=== PATIENT | female | born 2005 | race Caucasian/White ===

== ENCOUNTER 2023-02-04 19:47 | Emergency (ER) | payer BC, MEDICAID, SELFPAY ==
[2023-02-04 19:48] VITALS: BP 120/76; PULSE 110; RESP 18; TEMP 36.2; O2SAT 99
[2023-02-04 20:28] VITALS: BMI 23.1
[2023-02-04 20:42] LABS: Mucous, Urine 0 SEEN /hpf (<or=2+)
[2023-02-04 20:44] LABS: Color, Urine Yellow (Yellow); Glucose, Dipstick Normal (Normal); Leukocyte Esterase-Dipstick 100 /ul (Negative); Nitrite-Dipstick Negative (Negative); Occult Blood-Urine 50 /ul (Negative); Protein-Dipstick 15 mg/dl (Negative); Specific Gravity, Urine 1.025 (1.002-1.030); Urine Bilirubin Dipstick Negative (Negative); Urine Clarity Sl. Cloudy (Clear); Urine Urobilinogen Normal (Normal)
[2023-02-04 20:57] LABS: Ketone-Dipstick 150 mg/dl (Negative)
[2023-02-04 21:02] LABS: Bacteria RARE /hpf (None Seen); Red Blood Cells-Urine 0-5 SEEN /hpf (0-5); Squamous Epithelial Cells - UA 0-5 SEEN /hpf (5-10); White Blood Cells 0-5 SEEN /hpf (0-5)
--- NOTE | 2023-02-04 21:38 | EDS_ITS ---
HPI HPI - Female History of Present Illness Chief Complaint: Vag Bld, Preg Informant: patient Narrative Narrative: Patient is a 17-year-old female, G1, P0 currently 11 weeks with last menstrual period on November 17. She previously seen an [employer] SUPERVISOR in [place], Dr. Jonathan Covington. She had she had appointment with him this morning. She notes he had a hard time finding the heart beat and she was worried about that. She also notes that when driving back to the [place] area (she just moved here) she had some abdominal cramping and had small amount of blood clots spotting of bright red blood. The symptoms have since resolved. She came in for further evaluation. She denies any urinary symptoms. She denies any abnormal vaginal discharge. She did not have a pelvic exam at her appointment today. She does not know her blood type. No other complaints at this time. [facility] Medical History Vaginal cyst Home Medications NK 02/04/23 [History Last Taken Unknown] Allergy/AdvReac Type Severity Reaction Status Date / Time No Known Allergies Allergy Verified 02/04/23 19:48 Surgical History History of appendectomy Social History Smoking Status: Current every day smoker tobacco type: e-cigarettes ROS ROS ED Constitutional Constitutional ED: Denies chills or fever(s) Gastrointestinal Gastrointestinal: Reports abdominal pain; Denies diarrhea, nausea or vomiting Genitourinary Genitourinary ED: Reports other Details: vaginal bleeding, +11 weeks Musculoskeletal Musculoskeletal: Denies arthralgias or myalgias Integumentary Denies rash Neurologic Neurologic: Denies headache(s) or weakness Psychiatric Psychiatric: Denies anxiety EXAM Physical Exam Const Vital Signs: 02/04/23 19:48 Temperature 97.1 F L Temperature Source Temporal Pulse Rate 110 H Respiratory Rate 18 Blood Pressure 120/76 Blood Pressure Mean 90 Pulse Ox 99 Oxygen Delivery Method Room Air Positive well nourished and well developed General Appearance ED: well developed and NAD HEENT Reports moist mucous membranes Neck supple Chest Wall inspection of chest normal Resp normal respiratory effort and clear to auscultation bilaterally Cardio regular rate and regular rhythm GI normal to inspection, nondistended, normoactive bowel sounds and soft to palpation GI Narrative: Uterus is not palpable Narrative: Deferred Back/Spine no CVA tenderness Extremity normal to inspection and full ROM Neuro oriented x3 Sensorium / Orientation: alert Psych mental status grossly normal Skin no rashes or lesions noted MDM MDM MDM Narrative Medical decision making narrative: Patient is evaluated for cramping and vaginal bleeding in early . Bedside also performed myself shows a single intrauterine gestation with heart tones of 163. There is good activity. Patient is informed of these findings. She is not having any further bleeding or cramping I do not think a pelvic exam or formal ultrasound was obtained. Urinalysis was obtained which did show 150 ketones, 100 leukocyte esterase, rare bacteria, negative nitrates and 0-5 red blood cells, white blood cells and squamous epithelial cells. Urine will be sent for culture but think this is most consistent with contamination. Patient is given referral for local [employer]. She is O+ and does not require RhoGAM. Quant is obtained for a baseline in case patient has further bleeding. Counseled on signs and symptoms of threatened miscarriage. Patient was ordered IV fluids however she states that she does not want an IV and did not want IV fluids. Counseled to drink lots of fluids at home. She verbalizes good understand this plan. She is discharged home in stable condition. Lab Data Labs: Laboratory Results - last 24 hr 02/04/23 02/04/23 02/04/23 20:27 21:30 21:30 HCG, Quant [id number] H Urine Color Yellow Urine Clarity Sl. Cloudy Urine pH 6.0 Ur Specific [place] 1.025 Urine Protein 15 H Urine Glucose (UA) Normal Urine Ketones 150 A* Urine Occult Blood 50 H Urine Nitrite Negative Urine Bilirubin Negative Urine Urobilinogen Normal Ur Leukocyte Esterase 100 H Urine RBC 0-5 SEEN Urine WBC 0-5 SEEN Ur Squamous Epith Cells 0-5 SEEN Urine Bacteria RARE Urine Mucus 0 SEEN Blood Type O POSITIVE Discharge Plan Triage Chief Complaint: Vag Bld, Preg ED Provider: Qian Murphy Dx/Rx/DC Orders Clinical Impression: Threatened miscarriage in early , Ketonuria Instructions: ED Possible Miscarriage ... Prescriptions: No Action NK Primary Care Provider: Care Physician,No Primary Referrals: Arteaga,Shaunna, DO [Med Staff - Active Staff] - 1-2 Weeks Care Physician,No Primary [Primary Care Provider] - Activity Restrictions/Additional Instructions: Your blood type is O+. You do not require RhoGAM. Please follow-up with [employer]. Your hCG quant today was 53,199. You did show signs of dehydration or urine. Please drink lots of fluids. Baby's heart rate was normal today. Disposition Disposition: Home, Self Care
== END 2023-02-04 22:58 | disposition home or self-care (01) ==
PROVIDERS: Emergency Provider Emergency Medicine; Visit Provider Emergency Medicine
DX: O20.0 Threatened abortion (principal); O99.331 Smoking (tobacco) complicating pregnancy, first trimester; O99.891 Other specified diseases and conditions complicating pregnancy; R82.4 Acetonuria; Z3A.11 11 weeks gestation of pregnancy; F17.290 Nicotine dependence, other tobacco product, uncomplicated; Z90.49 Acquired absence of other specified parts of digestive tract
CPT/HCPCS: 81001; 84702; 86900; 86901; 87086; 87088; 99282; A4216

== ENCOUNTER 2023-02-09 16:58 | Emergency (ER) | payer BC, MEDICAID, SELFPAY ==
[2023-02-09 16:58] VITALS: BP 114/68; PULSE 88; RESP 22; TEMP 35.7; O2SAT 97; BMI 22.3
--- NOTE | 2023-02-09 19:10 | EDS_ITS ---
HPI History of Present Illness Chief Complaint: Nausea/Vomiting Detail of Chief Complaint: First trimester with nausea and vomiting for the past 3 days Informant: patient Onset/Context/Timing Onset: Weeks Timing: Intermittent Quality: Nausea and vomiting with thirst and intermittent lightheadedness Location: GI Current Severity: Moderate Maximum Severity: Moderate Worsened by: Attempt to eat or drink anything Relieved by: Nothing Associated Symptoms Associated Symptoms: Dry mouth, thirst and lightheadedness Narrative Narrative: Patient is a 17-year-old G1, P0 female first trimester , 12 weeks gestation, who presents with nausea vomiting for the past 3 days. She is had nausea fine for greater than 1 week. She states she is not able to keep anyt dino down for the past 48 hours. She denies fever, chills night sweats. Denies headache, visual, ocular auditory symptoms. She denies cardiac or respiratory symptoms. She does complain of vague abdominal discomfort with vomiting. She denies diarrhea. She denies frequency, urgency hematuria or dysuria. She endorses decreased urine output. She and lesions. She states her ibm bpm architect is Dr. Martinez who practices at [facility]. Prior similar symptoms: Yes Recent Illness/Hospitalization: Yes [facility] Medical History Vaginal cyst Home Medications cephalexin 500 mg capsule 500 mg PO Q6 #28 CAPSULES 02/09/23 [Rx Last Taken Unknown] ondansetron 4 mg disintegrating tablet 4 mg PO Q8H PRN PRN Nausea #10 tabs 02/09/23 [Rx Last Taken Unknown] Allergy/AdvReac Type Severity Reaction Status Date / Time No Known Allergies Allergy Verified 02/09/23 17:01 Surgical History History of appendectomy Social History (Updated 02/09/23 @ 19:[address] Andrzej Nguyen MD) household members: significant other Smoking Status: Current every day smoker tobacco type: e-cigarettes alcohol intake: former substance use type: former substance user Date of last use: Marijuana ROS ROS ED Constitutional Constitutional ED: Denies chills, fever(s), subjective, sweats or weight loss Eyes Eyes: Denies blurry vision, change in vision or diplopia ENT ENT ED: Denies ear pain, rhinorrhea or sore throat Cardiovascular Cardiovascular: Denies chest pain, orthopnea, palpitations, paroxysmal nocturnal dyspnea or racing heartbeat Respiratory/Chest Respiratory/Chest: Denies cough, dyspnea, dyspnea on exertion, orthopnea or paroxysmal nocturnal dyspnea Gastrointestinal Gastrointestinal: Reports abdominal pain, nausea and vomiting; Denies constipation, diarrhea or melena Genitourinary Genitourinary ED: Denies dysuria, hematuria or urinary frequency Musculoskeletal Musculoskeletal: Denies arthralgias, back pain, myalgias or neck pain Integumentary Denies rash Neurologic Neurologic: Denies headache(s) or paresthesias Endocrine Endocrinology: Denies cold intolerance, heat intolerance, polydipsia or polyuria Hematologic/Lymphatic Hematologic/Lymphatic: Reports systems reviewed and no addt'l complaints, except as documented EXAM Physical Exam Const Vital Signs: 02/09/23 16:58 Temperature 96.3 F L Temperature Source Temporal Pulse Rate 88 Respiratory Rate 22 H Blood Pressure 114/68 Blood Pressure Mean 83 Pulse Ox 97 Oxygen Delivery Method Room Air Positive well nourished and well developed Constitutional Narrative: Patient is in no distress. She is slightly pale. General Appearance ED: well developed and pallor; Negative for cyanotic or diaphoretic HEENT Reports dry mucous membranes HEENT Narrative: Head is atraumatic normocephalic. Ears are normal. Nares are patent. Posterior pharynx out erythema or exudate. Uvula is midline. Mouth ED: Yes dry mucous membranes Mouth: dry mucous membranes Eyes PERRL and EOMs intact bilaterally General Eye ED: Negative for pale conjunctiva or scleral icterus Neck no lymphadenopathy, supple and no JVD Chest Wall inspection of chest normal and palpation of chest normal Resp normal respiratory effort and clear to auscultation bilaterally Cardio regular rate, regular rhythm, S1 normal heart sound, S2 normal heart sound and no murmurs GI normal to inspection, nondistended, normoactive bowel sounds, non-tender, non- distended and no masses; Negative for hepatosplenomegaly Back/Spine no CVA tenderness Cervical Spine: Negative for cervical spine tenderness Thoracic Spine / Upper Back: Negative for thoracic spinal tenderness Lumbar Spine / Lower Back: Negative for lumbar spinal tenderness Extremity normal to inspection General Extremety ED: Negative for edema or tenderness General Extremity: Negative for edema Neuro oriented x3, CN's II-XII intact bilaterally and no sensory deficits noted Sensorium / Orientation: alert Psych mental status grossly normal Skin no rashes or lesions noted, no wounds and skin turgor normal General Skin Exam: elasticity normal and pallor; Negative for jaundice MDM MDM MDM Narrative Medical decision making narrative: Clinically patient appears dehydrated. Suspect this is hyperemesis gravidarum. 1 L normal saline was ordered as well as Zofran. Since patient's spec gravity is elevated and ketones are in urine second liter was ordered with D5 half- normal to clear ketosis. Will reassess. Laboratory studies from last week were reviewed. Patient had ketonuria at that time as well. She was diagnosed with threatened miscarriage. There is no other records available. History & Record Review Additional record(s) reviewed:: Prior ED visit Lab Data Attestation: I reviewed the patient's lab results. Lab results narrative: Urine reveals severe gravity 1.030 with ketones. Macro also is remarkable for occult blood and leukoesterase and negative for nitrites. Patient does have pyuria with 10-25 WBCs. Rare bacteria. Since she is culture was sent and she was treated with a short course of cephalexin. Labs: Laboratory Results - last 24 hr 02/09/23 19:40 Urine Color Yellow Urine Clarity Cloudy Urine pH 5.0 Ur Specific [place] 1.030 Urine Protein 30 H Urine Glucose (UA) Normal Urine Ketones 150 A* Urine Occult Blood 25 H Urine Nitrite Negative Urine Bilirubin Negative Urine Urobilinogen Normal Ur Leukocyte Esterase 100 H Urine RBC 0-5 SEEN Urine WBC 10-25 SEEN Ur Squamous Epith Cells 5-10 SEEN Amorphous Sediment 1+ URATE Urine Bacteria RARE Urine Mucus 0 SEEN Treatment and Re-Evaluation :: Patient feels markedly improved after 1 L of normal saline and 1 L of D5 half- normal saline. Patient passed p.o. challenge. Discharge Plan Triage Chief Complaint: Nausea/Vomiting ED Provider: Andrzej Nguyen Dx/Rx/DC Orders Clinical Impression: Hyperemesis gravidarum, Bacteriuria with pyuria, First trimester , Acute dehydration, Ketosis Instructions: Urinary Tract Infections in Women, ED Hyperemesis Gravidarum Prescriptions: New cephalexin [cephalexin] 500 mg capsule 500 mg PO Q6 Qty: 28 0RF ondansetron [ondansetron] 4 mg tablet,disintegrating 4 mg PO Q8H PRN PRN (Reason: Nausea) Qty: 10 0RF Primary Care Provider: Care Physician,No Primary Referrals: Care Physician,No Primary [Primary Care Provider] - Doctor,Your [Non-Staff] - 3-5 Days Activity Restrictions/Additional Instructions: 1. Call your OB for follow-up in 3 to 5 days. 2. Take antibiotics till gone 3. Take Zofran as needed for nausea and vomiting Disposition Disposition: Home, Self Care
[2023-02-09] MEDS: Ondansetron 4 MG/2 ML Vial IV (19:13)
[2023-02-09] MEDS: 0.9% Normal Saline 1,000 ML 1000 ML IV (19:13)
[2023-02-09 19:49] LABS: Mucous, Urine 0 SEEN /hpf (<or=2+)
[2023-02-09] MEDS: Dext 5%-0.45% NS 1,000 ML 1000 ML IV (19:58)
[2023-02-09 20:18] LABS: Color, Urine Yellow (Yellow); Glucose, Dipstick Normal (Normal); Leukocyte Esterase-Dipstick 100 /ul (Negative); Nitrite-Dipstick Negative (Negative); Occult Blood-Urine 25 /ul (Negative); Protein-Dipstick 30 mg/dl (Negative); Urine Bilirubin Dipstick Negative (Negative); Urine Clarity Cloudy (Clear); Urine Urobilinogen Normal (Normal)
[2023-02-09 20:48] LABS: Ketone-Dipstick 150 mg/dl (Negative)
[2023-02-09 20:50] LABS: Amorphous Sediment 1+ URATE; Bacteria RARE /hpf (None Seen); Red Blood Cells-Urine 0-5 SEEN /hpf (0-5); Squamous Epithelial Cells - UA 5-10 SEEN /hpf (5-10); White Blood Cells 10-25 SEEN /hpf (0-5)
[2023-02-09 21:37] VITALS: BP 115/69; PULSE 81
[2023-02-09] MEDS: Cephalexin 250 MG Capsule 500 MG PO (21:53)
== END 2023-02-09 21:55 | disposition home or self-care (01) ==
PROVIDERS: Emergency Provider Emergency Medicine; Visit Provider Emergency Medicine
DX: O21.1 Hyperemesis gravidarum with metabolic disturbance (principal); O20.0 Threatened abortion; F17.210 Nicotine dependence, cigarettes, uncomplicated; R82.71 Bacteriuria; O99.321 Drug use complicating pregnancy, first trimester; R82.81 Pyuria; Z3A.12 12 weeks gestation of pregnancy; F12.90 Cannabis use, unspecified, uncomplicated; O99.331 Smoking (tobacco) complicating pregnancy, first trimester; O99.891 Other specified diseases and conditions complicating pregnancy
CPT/HCPCS: 81001; 96361; 96374; 99283; J7030; A4216; J2405; J7799

== ENCOUNTER 2023-07-03 17:30 | Outpatient (CLI) | payer MEDICAID, SELFPAY ==
[2023-07-03 18:07] VITALS: BP 134/77; PULSE 116; PULSE 167; TEMP 36.2; O2SAT 93
[2023-07-03 18:18] VITALS: BMI 25.7
[2023-07-03 18:30] LABS: Color, Urine Yellow (Yellow); Glucose, Dipstick Normal (Normal); Ketone-Dipstick Negative (Negative); Leukocyte Esterase-Dipstick 500 /ul (Negative); Nitrite-Dipstick Negative (Negative); Occult Blood-Urine Negative /ul (Negative); Protein-Dipstick 15 mg/dl (Negative); Urine Bilirubin Dipstick Negative (Negative); Urine Clarity Cloudy (Clear); Urine Urobilinogen 1 mg/dl (Normal)
--- NOTE | 2023-07-04 12:31 | OB.TRI.NOTE ---
HPI - General General Date of Admission: 07/03/23 Date of Service: 07/03/23 Chief Complaint: vaginal pain HPI Narrative JEWELL LOUIS, is a 18 F who presents at 32-5/7-week complaining of vaginal pain. She arrived from the emergency room. She has had a vulvar lesion that was drained earlier in the . She states that it is back. She denied any vaginal bleeding, leaking of fluid or contractions. She told the nurse she had not drink many fluids before arriving. Maternal Data Information Final KWASI: 08/24/23 Gestational age: 32 5/7 [facility] Medical History Vaginal cyst Allergy/AdvReac Type Severity Reaction Status Date / Time sulfamethoxazole AdvReac Mild Vomiting Verified 07/03/23 19:03 [From Bactrim] trimethoprim [From Bactrim] AdvReac Mild Vomiting Verified 07/03/23 19:03 Surgical History History of appendectomy Social History (Updated 02/09/23 @ 19:[address] Andrzej Nguyen MD) household members: significant other Smoking Status: Current every day smoker tobacco type: e-cigarettes alcohol intake: former substance use type: former substance user Date of last use: Marijuana NST FHR Rate Baby A Baseline: 130 Variability:: Moderate Accelerations:: 15 x 15 Decelerations:: Variable NST Reactive:: Yes FHR Category:: Category I (for >20 min before d/c) Uterine Activity:: Irritability, contractions not appreciated by patient Assessment & Plan (1) 32 weeks gestation of : PLAN: 32-week primigravida with reactive NST. No significant obstetrical complaints. Patient had a vulvar abscess identified by nursing staff that was her main complaint. She was cleared obstetrically and sent to the emergency room for evaluation and likely incision and drainage.
== END 2023-07-03 18:45 | disposition home or self-care (01) ==
LOC: WPOUT 17:36 → WP 17:37
PROVIDERS: Referring Provider Obstetrics & Gynecology; Visit Provider Obstetrics & Gynecology
DX: O23.593 Infection of other part of genital tract in pregnancy, third trimester (principal); Z3A.32 32 weeks gestation of pregnancy; O99.333 Smoking (tobacco) complicating pregnancy, third trimester; F17.290 Nicotine dependence, other tobacco product, uncomplicated
CPT/HCPCS: 59025; 59050; 81002; 87077; 87086; 87088; 87186; 99221; G0378

== ENCOUNTER 2023-07-03 19:00 | Emergency (ER) | payer MEDICAID, SELFPAY ==
[2023-07-03 19:00] VITALS: BP 117/80; PULSE 103; RESP 16; TEMP 36.7; O2SAT 99; BMI 25.7
== END 2023-07-03 21:11 | disposition left against medical advice (07) ==
LOC: ED 21:14
DX: L02.91 Cutaneous abscess, unspecified (principal)

== ENCOUNTER 2023-07-20 19:10 | Outpatient (CLI) | payer MEDICAID, SELFPAY ==
[2023-07-20] VITALS (21 sets, daily range): BP systolic 125; BP diastolic 78; PULSE 111–126; TEMP 37.6; O2SAT 96–99; BMI 27.2
[2023-07-20] MEDS: Lactated Ringers 500 ML IV.SOLN. 1000 ML IV (20:00)
[2023-07-20 20:35] LABS: Absolute Lymphocyte Count 1.65 X10^3/uL (0.83-4.51); Absolute Neutrophil Count 13.5 X10^3/uL (2.0-7.7); Basophil# 0.05 X10^3/uL; Basophil% 0.3 % (0-1); Eosinophil# 0.08 X10^3/uL; Eosinophils% 0.5 % (0-5); Hematocrit 30.9 % (37-47); Hemoglobin 9.9 g/dL (12.0-15.0); Lymphocyte # 1.65 X10^3/ul (0.83-4.51); Lymphocyte % 10.1 % (19-41); Mean Corpuscular Hgb 29.1 pg (27.0-32.0); Mean Corpuscular Volume 90.9 fL (81-99); Mean Platelet Vol. 10.8 fl (6.2-12.0); Monocyte% 5.5 % (0-10); NRBC Flagged by Analyzer 0 % (0-5); Neutrophil # 13.54 X10^3/uL (2.7-7.7); Neutrophil % 82.7 % (47-70); Platelet Count 373 K/mm3 (150-450); RBC Distribution Width CV 13.6 % (11.6-14.6); RBC Distribution Width SD 44.7 fl (35.1-43.9); White Blood Count 16.4 K/mm3 (4.4-11.0)
[2023-07-20 20:57] LABS: ALB/GLOB Ratio 0.5 RATIO (0.9-2.4); AST(SGOT) 13 U/L (15-37); Alanine Aminotransfer ALT/SGPT 17 U/L (13-56); Albumin, Serum 2.3 g/dL (3.2-5.0); Alkaline Phosphatase 189 U/L (45-117); Anion Gap 7 (5-15); BUN 4 mg/dL (7-18); BUN/Creat Ratio 10.2 RATIO (10-20); Calcium,Total 8.3 mg/dL (8.5-10.1); Chloride 106 mmol/L (98-107); Creatinine, Serum 0.39 mg/dL (0.55-1.02); EST Glomerular Filtration Rate 221 mL/min (>60); Est Glom Filt Rate - Afr Amer 268 mL/min (>60); Estimated Creatinine Clearance 190.34 ml/min; Globulin 4.5 g/dL (2.2-4.2); Glucose 98 mg/dL (74-106); Potassium 3.7 mmol/L (3.5-5.1); Protein, Total 6.8 g/dL (6.4-8.2); Sodium Level 136 mmol/L (136-145)
--- NOTE | 2023-07-20 22:07 | OB.TRI.HP_ITS ---
HPI - General General Date of Admission: 07/20/23 Date of Service: 07/20/23 Chief Complaint: viral illness HPI Narrative JEWELL LOUIS, is a 18 F who presents at 35 w 0 d with nausea, diarrhea, cough, congestion, rhinorrhea. She denies fevers or chills. She is tolerating Po. No abdominal pain. She denies contractions, bleeding, leaking of fluid. Good movement. 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 PFSH [facility] Medical History Vaginal cyst Allergy/AdvReac Type Severity Reaction Status Date / Time sulfamethoxazole AdvReac Mild Vomiting Verified 07/20/23 20:00 [From Bactrim] trimethoprim [From Bactrim] AdvReac Mild Vomiting Verified 07/20/23 20:00 Surgical History History of appendectomy Social History (Updated 02/09/23 @ 19:[address] Andrzej Nguyen MD) household members: significant other Smoking Status: Current every day smoker tobacco type: e-cigarettes alcohol intake: former substance use type: former substance user Date of last use: Marijuana Physical Exam Const alert and no apparent distress NST FHR Rate Baby A Baseline: 120 Variability:: Moderate Accelerations:: 15 x 15 Decelerations:: None NST Reactive:: Yes Uterine Activity:: irregular ctx's Assessment & Plan (1) 35 weeks gestation of : PLAN: COVID and flu swabs were negative. IV fluid bolus given. NST reactive. Discussed medications that are safe to take in . Push fluids and encourage hydration with electrolyte drinks. Stick to bland diet. Reviewed reasons to call. Discharged home. (2) Viral URI: (3) Diarrhea:
== END 2023-07-20 22:00 | disposition home or self-care (01) ==
LOC: WPOUT 19:16 → WP 19:19
PROVIDERS: Visit Provider Obstetrics & Gynecology
DX: O99.513 Diseases of the respiratory system complicating pregnancy, third trimester (principal); R19.7 Diarrhea, unspecified; O99.333 Smoking (tobacco) complicating pregnancy, third trimester; F17.210 Nicotine dependence, cigarettes, uncomplicated; Z3A.35 35 weeks gestation of pregnancy; J06.9 Acute upper respiratory infection, unspecified
CPT/HCPCS: 36415; 59025; 59050; 80053; 85025; 87428; 99221; J7120; G0378

== ENCOUNTER 2023-07-24 23:00 | Emergency (ER) | payer MEDICAID, SELFPAY ==
[2023-07-24 23:01] VITALS: BP 132/88; PULSE 117; RESP 18; TEMP 36.6; O2SAT 99; BMI 27.6
[2023-07-24 23:04] VITALS: BP 132/88; PULSE 117; RESP 18; TEMP 36.6; O2SAT 99
--- NOTE | 2023-07-24 23:21 | EDS_ITS ---
HPI History of Present Illness Chief Complaint: Abscess Detail of Chief Complaint: Pilonidal cyst or abscess. Informant: patient Onset/Context/Timing Onset: Days Context: Gradual Onset Timing: Continuous Current Severity: Mild Maximum Severity: Mild Narrative Narrative: 18-year-old female no significant past medical history currently 36 weeks . G1, P0 Ab0. Due date 08/24/2023. Noticed pain in her cleft of her buttocks about 3 days starting on Thursday. History of prior pilonidal cyst that was drained around 30 weeks ago. Prior similar symptoms: Yes Recent Illness/Hospitalization: No PFSH [facility] Medical History Vaginal cyst Home Medications cephalexin 500 mg capsule 500 mg PO Q6 #30 CAPSULES 07/25/23 [Rx Last Taken Unknown] Allergy/AdvReac Type Severity Reaction Status Date / Time sulfamethoxazole AdvReac Mild Vomiting Verified 07/24/23 23:01 [From Bactrim] trimethoprim [From Bactrim] AdvReac Mild Vomiting Verified 07/24/23 23:01 Surgical History History of appendectomy Social History household members: significant other Smoking Status: Current every day smoker tobacco type: e-cigarettes alcohol intake: former substance use type: former substance user Date of last use: Marijuana ROS ROS ED ROS Narrative Nausea and vomiting with . Review of Systems ROS Unobtainable: Denies due to encephalopathy Constitutional Constitutional ED: Denies chills Eyes Eyes: Denies blurry vision ENT ENT ED: Denies ear pain Cardiovascular Cardiovascular: Denies chest pain Respiratory/Chest Respiratory/Chest: Denies cough or dyspnea Gastrointestinal Gastrointestinal: Reports diarrhea, nausea and vomiting; Denies abdominal pain, constipation or melena Genitourinary Genitourinary ED: Denies dysuria or hematuria Musculoskeletal Musculoskeletal: Denies arthralgias Integumentary Denies Abrasions or rash Neurologic Neurologic: Denies headache(s) Psychiatric Psychiatric: Denies anxiety Endocrine Endocrinology: Denies cold intolerance Hematologic/Lymphatic Hematologic/Lymphatic: Reports none Allergic/Immunologic Allergic/Immunologic ED: Denies mouth swelling, tongue swelling or urticaria EXAM Physical Exam Narrative Exam Narrative: 18-year-old no acute distress. Vital signs stable afebrile. HEENT exam unremarkable. Neck nontender. Lungs clear to auscultation bilaterally. Heart regular rhythm no murmur. Rate about 110. CT abdomen soft, nontender, gravid uterus. No peritoneal signs. Moving all 4 extremities. Nontender no edema. Buttock exam at the proximal cleft of her buttocks there is a small nickel sized bilateral cyst or abscess. Tender to touch. No surrounding cellulitis. This will need to be drained. Otherwise exam unremarkable. Const Vital Signs: 07/24/23 23:01 07/24/23 23:04 Temperature 97.8 F 97.8 F Temperature Source Temporal Temporal Pulse Rate 117 H 117 H Respiratory Rate 18 18 Blood Pressure 132/88 H 132/88 H Blood Pressure Mean 102 102 Pulse Ox 99 99 Positive well nourished and well developed; Negative for cachectic, contractures or unkempt General Appearance ED: well developed and NAD; Negative for unkempt, cachectic, contractures, cyanotic or diaphoretic Nutritional Appearance: Negative for cachectic HEENT Reports moist mucous membranes Negative for trauma or tenderness Eyes PERRL and EOMs intact bilaterally General Eye ED: Negative for pale conjunctiva, scleral icterus or other Neck no lymphadenopathy, supple and no JVD General: Negative for tenderness Chest Wall inspection of chest normal and palpation of chest normal Chest: Negative for other Resp normal respiratory effort and clear to auscultation bilaterally Effort and Inspection: Negative for retractions Auscultation: Negative for rales, rhonchi or wheezes Cardio regular rate, regular rhythm, S1 normal heart sound, S2 normal heart sound and no murmurs GI normal to inspection, nondistended, normoactive bowel sounds, non-tender, non- distended and no masses GI Narrative: Gravid nontender uterus. Consistent with dates. Inspection: Negative for abdominal distention Auscultation: normoactive bowel sounds Palpation: soft; Negative for tender or guarding Back/Spine no CVA tenderness Extremity normal to inspection General Extremety ED: Negative for edema or tenderness General Extremity: Negative for edema Neuro oriented x3 and CN's II-XII intact bilaterally Sensorium / Orientation: alert; Negative for orientation impaired, lethargic or stuporous Motor Exam: strength 5/5 throughout Psych mental status grossly normal Appearance: Negative for unkempt Attitude: No agitated Mood & Affect: Negative for depressed, anxious or tearful Skin no rashes or lesions noted, no wounds and skin turgor normal General Skin Exam: elasticity normal Lesions: No lesion noted Rashes: No rashes noted Trauma: Negative for abrasion Wounds: Negative for wounds noted Image ED - Body Diagram Man: 1. Pilonidal cyst or abscess. MDM MDM MDM Narrative Medical decision making narrative: 18-year-old female currently 36 weeks . With a pilonidal cyst or abscess. Like to the area. None locally anesthetized and drained. At 1:30 PM I incised and drained the pilonidal abscess. Express about 3 cc of pus and blood. Irrigated the cavity. Placed packing gauze. They were instructed on wound care. She was given a dose of Keflex here. And I sent a prescription to her pharmacy of Keflex 4 times daily for 7 days. Tylenol for pain. Procedures Other Procedures Procedure(s): Drainage of pilonidal abscess. Let was applied to the wound. Locally anesthetized with plain lidocaine. Once proper anesthetic was obtained I made a 1 to 2 cm vertical incision. Probed the wound with blunt forceps. Expressed about 3+ cc of pus and blood. Patient tolerated procedure well. Cavi ty was irrigated. I placed about 5 inches of quarter inch packing gauze in the wound. They were instructed on wound care and packing removal. She will be started on Keflex. Discharge Plan Triage Chief Complaint: Abscess ED Provider: Geovanny Cruz Dx/Rx/DC Orders Clinical Impression: Cyst, pilonidal, with abscess, Third trimester Instructions: ED Cyst Pilonidal Infected IandD Prescriptions: New cephalexin 500 mg capsule 500 mg PO Q6 Qty: 30 0RF Primary Care Provider: Care Physician,No Primary Referrals: Care Physician,No Primary [Primary Care Provider] - Activity Restrictions/Additional Instructions: Warm soaks to the area. Tylenol for pain. The antibiotic Keflex 1 pill 4 times a day for 1 week. The packing is out in 4 days. There is about 5 inches of packing gauze in there. It will come out in 1 piece. 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 Return if it is getting worse. Surround ing redness, fever or feeling worse. This should progressively improve and get better and resolve. Disposition Disposition: Home, Self Care
[2023-07-24] MEDS: Lidocaine 1% (20 ml mdv) 20 ML Vial 10 ML INFILT (23:34)
[2023-07-24] MEDS: Lidocaine/Epi/Tetracaine 50 ML 1 APPLIC TOPICAL (23:35)
[2023-07-25] MEDS: Cephalexin 250 MG Capsule 500 MG PO (02:14)
[2023-07-25 02:15] VITALS: BP 124/68; PULSE 84; PULSE 94; RESP 16; RESP 18; TEMP 36.1; O2SAT 99
== END 2023-07-25 02:17 | disposition home or self-care (01) ==
PROVIDERS: Emergency Provider Emergency Medicine; Visit Provider Emergency Medicine
DX: O99.713 Diseases of the skin and subcutaneous tissue complicating pregnancy, third trimester (principal); Z3A.36 36 weeks gestation of pregnancy; L05.01 Pilonidal cyst with abscess; O99.334 Smoking (tobacco) complicating childbirth; F17.290 Nicotine dependence, other tobacco product, uncomplicated
CPT/HCPCS: 10080; 99283

== ENCOUNTER 2023-08-15 04:38 | Inpatient (IN) | payer MEDICAID, SELFPAY ==
[2023-08-15] VITALS (50 sets, daily range): BP systolic 107–137; BP diastolic 51–107; PULSE 84–235; RESP 14–16; TEMP 36.1–37.6; O2SAT 97–100; BMI 28.5
[2023-08-15] MEDS: Lactated Ringers 1,000 ML 200 ML IV ×2 (05:17→11:25)
[2023-08-15] MEDS: Penicillin G Pot 5,000,000 UNITS in 0.9% Normal Saline (100mL MB+) 100 ML 150 UNITS IV (05:18)
[2023-08-15] MEDS: LACTATED RINGERS 500 ML 999 ML IV (05:30)
[2023-08-15 05:35] LABS: Absolute Lymphocyte Count 2.41 X10^3/uL (0.83-4.51); Absolute Neutrophil Count 11.9 X10^3/uL (2.0-7.7); Basophil# 0.08 X10^3/uL; Basophil% 0.5 % (0-1); Eosinophils% 0.6 % (0-5); Hematocrit 32.3 % (37-47); Hemoglobin 10.1 g/dL (12.0-15.0); Lymphocyte # 2.41 X10^3/ul (0.83-4.51); Lymphocyte % 15.6 % (19-41); Mean Corp Hgb Conc 31.3 g/dL (32-36); Mean Corpuscular Volume 89.5 fL (81-99); Mean Platelet Vol. 10.4 fl (6.2-12.0); Monocyte# 0.75 X10^3/uL; Monocyte% 4.9 % (0-10); NRBC Flagged by Analyzer 0 % (0-5); Neutrophil # 11.94 X10^3/uL (2.7-7.7); Neutrophil % 77.6 % (47-70); Platelet Count 323 K/mm3 (150-450); RBC Distribution Width CV 14.5 % (11.6-14.6); Red Blood Count 3.61 M/mm3 (4.2-5.4); White Blood Count 15.4 K/mm3 (4.4-11.0)
--- NOTE | 2023-08-15 05:48 | PCM.HP.OB ---
HPI - General General Date of Admission: 08/15/23 HPI Narrative JEWELL LOUIS, is a 18 F KWASI 08/24/23 at 38 5/7 who presents with SROM clear fluid at 3 am 08/15/2023, began having contractions immediately thereafter. complicated by Pyelectasis, Marijuana use/vapes, hx of self mutilation. Maternal Data Information KWASI Calculator Estimated Delivery Date Method Current WG Current Estimate 08/24/23 Manual 38w 5d Final KWASI: 08/24/23 [facility] Medical History (Updated 08/15/23 @ 08:08 by Claudia Stone CNM) Anorexia Depression Headache PTSD (post-traumatic stress disorder) Vaginal cyst Home Medications NK 08/15/23 [History Last Taken Unknown] Allergy/AdvReac Type Severity Reaction Status Date / Time sulfamethoxazole AdvReac Mild Vomiting Verified 08/15/23 05:38 [From Bactrim] trimethoprim [From Bactrim] AdvReac Mild Vomiting Verified 08/15/23 05:38 Surgical History History of appendectomy Social History household members: significant other Smoking Status: Heavy Smoker (>10/day) alcohol intake: former substance use type: former substance user Date of last use: Marijuana History Elective abortions Hx Para 0 Spontaneous abortions Hx # Term Pregnancies Ectopic pregnancies Hx # Pregnancies Multiple births # of living children NST FHR Rate Baby A Baseline: 145 Variability:: Moderate Accelerations:: 15 x 15 Decelerations:: Late (3 lates present within 1 hr, resolved with position changes ) FHR Category:: Category II Uterine Activity:: Contractions mod-strong q 1.5-3 ROS Constitutional Constitutional: Reports systems reviewed and no addt'l complaints, except as documented; Denies headache(s) Eyes Eyes: Denies acute decrease in peripheral vision, blurry vision or change in vision ENT HEENT: Reports systems reviewed and no addt'l complaints, except as documented Cardiovascular Cardiovascular: Denies chest pain or dizziness Respiratory/Chest Respiratory/Chest: Denies cough, dyspnea, dyspnea on exertion, shortness of breath at rest or shortness of breath with exertion Gastrointestinal Gastrointestinal: Denies abdominal pain, diarrhea, nausea or vomiting Genitourinary Genitourinary: Denies abdominal discomfort Musculoskeletal Musculoskeletal: Denies limited range of motion Integumentary Integumentary: Reports systems reviewed and no addt'l complaints, except as documented Neurologic Neurologic: Reports systems reviewed and no addt'l complaints, except as documented Psychiatric Psychiatric: Reports systems reviewed and no addt'l complaints, except as documented Endocrine Endocrinology: Reports systems reviewed and no addt'l complaints, except as documented Hematologic/Lymphatic Hematologic/Lymphatic: Reports systems reviewed and no addt'l complaints, except as documented Allergic/Immunologic Allergic/Immunologic: Reports systems reviewed and no addt'l complaints, except as documented Vital Signs Vital Signs Vital Signs: 08/15/23 04:34 08/15/23 04:34 08/15/23 04:34 Temperature Temperature Source Pulse Rate 114 H 114 H Blood Pressure 125/89 H BP Systolic 125 BP Diastolic 89 Pulse Ox 08/15/23 04:34 08/15/23 04:34 08/15/23 04:34 Temperature Temperature Source Temporal Pulse Rate Blood Pressure BP Systolic BP Diastolic Pulse Ox 98 99 08/15/23 04:34 Temperature 98.6 F Temperature Source Pulse Rate Blood Pressure BP Systolic BP Diastolic Pulse Ox Weight Weight: 161 lb 2.526 oz Body Mass Index (BMI) 28.5 Physical Exam Const alert and oriented x3 General Appearance: cooperative Orientation / Consciousness: awake, oriented to person, oriented to place and oriented to time Exam Limitations: no limitations HEENT normocephalic Head and Scalp: normal to inspection, normocephalic and atraumatic Face and Sinus: normal facial exam Eyes General Eye: normal appearance of both eyes Neck full ROM Chest Chest: symmetrical chest wall rise Resp normal respiratory effort and normal air movement Auscultation: clear to auscultation bilaterally Cardio regular rate, regular rhythm, S1 normal heart sound, S2 normal heart sound, no murmurs, no rub, no gallops and no clicks GI normal to inspection, nondistended, normoactive bowel sounds and non-tender appearance of the vagina normal Bladder / Kidney Exam: no CVA tenderness Back/Spine normal ROM Extremity normal to inspection and full ROM Skin no rashes or lesions noted Neuro oriented x3 and moves all extremities Sensorium / Orientation: awake, alert and oriented to person Motor Exam: clonus absent Labs Labs Labs: Blood Type O POSITIVE Antibody Screen NEGATIVE Hct 32.3 % (37-47) L Hgb 10.1 g/dL (12.0-15.0) L Hepatitis C Antibody Non-Reactive (Nonreactive) 06/23/23 Hgb 10.4 Hct 31.7 Plt 330 Syphilis NR GTT 125 O+ 04/01/23 O+ ATB Screen negative 02/26/2023 HBSAG NR HCV NR Rubella immune 02/18/2023 Hgb 12.0 Hct 34.0 Plt 276 Assessment & Plan (1) 38 weeks gestation of : (2) Spontaneous rupture of membranes: (3) Active labor at term: (4) Anxiety and depression: (5) History of self mutilation: (6) Marijuana use during : (7) Vapes nicotine containing substance: (8) Pyelectasis of fetus on ultrasound: COMMENT: Ultrasound on 07/29/23 left sided mild renal pelvis dilation. Pediatric team to be notified at delivery. PLAN: Plan Admit to L& D Continuous EFM GBS prophylaxis: PCN 5 Grams IV x1 then PCN 3 million Grams q4h until delivery Encourage po fluids I & O Position changes q 30 minutes Comfort measures prn Epidural in place Collaborative physician: Dr Rivera, notify of admission and pt status
[2023-08-15 06:14] LABS: Syphilis Antibodies Non-reactive
[2023-08-15] MEDS: fentaNYL-bupivacaine (epidural) 100 ML BAG EPIDURAL ×2 (06:35→11:12)
[2023-08-15 06:42] LABS: Amphetamine Urine VISTA NEGATIVE (<1000 ng/mL); Barbiturate Urine VISTA NEGATIVE (< 200 ng/mL); Benzodiazepine Urine VISTA NEGATIVE (< 200 ng/mL); Cocaine Urine VISTA NEGATIVE (< 300 ng/mL); Ecstacy Urine VISTA NEGATIVE (< 500 ng/mL); Methadone Urine VISTA NEGATIVE (< 300 ng/mL); PCP Urine VISTA NEGATIVE (< 25 ng/mL); THC Urine VISTA NEGATIVE (< 50 ng/mL); Vista UDS pH Range 6
[2023-08-15 08:19] LABS: Hepatitis C Antibody Non-Reactive (Nonreactive)
[2023-08-15] MEDS: Penicillin G 3,000,000 Units 50 ML 100 UNITS IV (10:24)
--- NOTE | 2023-08-15 13:03 | PN.OBGYN_ITS ---
Subjective Subjective Was complete and pushing, called to room for heart rate decelerations down to 88. Turned from side to side and then to hands and knees with recovery to the 130s. Partner at bedside. Objective Data Objective Data Vital Signs: Vital Signs Temp Pulse BP Pulse Ox 99.6 F H 114 H 125/71 H 99 08/15/23 11:00 08/15/23 11:15 08/15/23 11:00 08/15/23 11:15 Weight: 161 lb 2.526 oz Body Mass Index (BMI) 28.5 Intake & Output: Intake and Output for Last 24 Hours 08/13/23 08/14/23 08/15/23 23:59 23:59 23:59 Intake Total 1655 / 1655 Balance 1655 / 1655 Lab / Micro Data 08/15/23 05:15 Labs: Laboratory Results - last 24 hr 08/15/23 05:00: Urine Opiates Screen NEGATIVE, Urine Methadone Screen NEGATIVE, Ur Barbiturates Screen NEGATIVE, Ur Phencyclidine Scrn NEGATIVE, Ur Amphetamines Screen NEGATIVE, MDMA (Ecstasy) Screen NEGATIVE, U Benzodiazepines Scrn NEGATIVE, Urine Cocaine Screen NEGATIVE, U Cannabinoids Screen NEGATIVE, Ur Drug Screen Comment 08/15/23 05:15: WBC 15.4 H, RBC 3.61 L, Hgb 10.1 L, Hct 32.3 L, MCV 89.5, MCH 28.0, MCHC 31.3 L, RDW Std Deviation 47.0 H, RDW Coeff of Anthony 14.5, Plt Count 323, MPV 10.4, Immature Gran % (Auto) 0.800, Neut % (Auto) 77.6 H, Lymph % (Auto) 15.6 L, [place] % (Auto) 4.9, Eos % (Auto) 0.6, Baso % (Auto) 0.5, Absolute Neuts (auto) 11.9 H, Absolute Lymphs (auto) 2.41, Nucleated RBC % 0, Syphilis Total Ab Non-reactive, Hepatitis C Antibody Non-Reactive, Blood Type O POSITIVE, Antibody Screen NEGATIVE Micro: Microbiology 08/15/23 05:00 Interface Orders Chlamydia trachomatis (PCR) - Final 08/15/23 05:00 Interface Orders Neisseria gonorrhoeae (PCR) - Final Physical Exam Narrative 135, moderate variability, variable and late decelerations, prolonged deceleration recovered, category 2 FHT Assessment & Plan (1) Active labor at term: PLAN: Plan 1) Repositioning and recovery of FHT, resumption of pushing efforts in hands and knees then repositioned and continued pushing efforts. consulted notified of prolonged deceleration and recovery, asked to review tracing. To continue with current pushing efforts at this time. 2) FSE in place
[2023-08-15] MEDS: CHLORHEXIDINE GLUC 2% CLOTH 1 EACH TOWELETTE TOPICAL (13:15)
--- NOTE | 2023-08-15 13:19 | PN.OBGYN_ITS ---
Subjective Subjective Patient on left side and called to room for prolonged deceleration. Objective Data Objective Data Vital Signs: Vital Signs Temp Pulse BP Pulse Ox 99.0 F 100 116/55 L 99 08/15/23 13:01 08/15/23 13:03 08/15/23 13:03 08/15/23 11:15 Weight: 161 lb 2.526 oz Body Mass Index (BMI) 28.5 Intake & Output: Intake and Output for Last 24 Hours 08/13/23 08/14/23 08/15/23 23:59 23:59 23:59 Intake Total 1655 / 1655 Balance 1655 / 1655 Lab / Micro Data 08/15/23 05:15 Labs: Laboratory Results - last 24 hr 08/15/23 05:00: Urine Opiates Screen NEGATIVE, Urine Methadone Screen NEGATIVE, Ur Barbiturates Screen NEGATIVE, Ur Phencyclidine Scrn NEGATIVE, Ur Amphetamines Screen NEGATIVE, MDMA (Ecstasy) Screen NEGATIVE, U Benzodiazepines Scrn NEGATIVE, Urine Cocaine Screen NEGATIVE, U Cannabinoids Screen NEGATIVE, Ur Drug Screen Comment 08/15/23 05:15: WBC 15.4 H, RBC 3.61 L, Hgb 10.1 L, Hct 32.3 L, MCV 89.5, MCH 28.0, MCHC 31.3 L, RDW Std Deviation 47.0 H, RDW Coeff of Anthony 14.5, Plt Count 323, MPV 10.4, Immature Gran % (Auto) 0.800, Neut % (Auto) 77.6 H, Lymph % (Auto) 15.6 L, [place] % (Auto) 4.9, Eos % (Auto) 0.6, Baso % (Auto) 0.5, Absolute Neuts (auto) 11.9 H, Absolute Lymphs (auto) 2.41, Nucleated RBC % 0, Syphilis Total Ab Non-reactive, Hepatitis C Antibody Non-Reactive, Blood Type O POSITIVE, Antibody Screen NEGATIVE Micro: Microbiology 08/15/23 05:00 Interface Orders Chlamydia trachomatis (PCR) - Final 08/15/23 05:00 Interface Orders Neisseria gonorrhoeae (PCR) - Final NST FHR Rate Baby A Baseline: 135 Variability:: Minimal Accelerations:: None Decelerations:: Prolonged (4 minutes) FHR Category:: Category II Uterine Activity:: every 1-2 minutes Assessment & Plan (1) Active labor at term: (2) Prolonged heart deceleration: PLAN: Plan 1) notified of prolonged deceleration of FHT for 4 minutes. Poor pushing efforts and remote from delivery. Minimal pushing efforts due to heart rate decelerations. Recommend section and agrees. 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
[2023-08-15] MEDS: Acetaminophen 500 MG Tablet PO (13:25)
[2023-08-15] MEDS: Sodium Citrate/Citric Acid 30 ML UDC PO (13:26)
[2023-08-15] MEDS: Cefazolin 2 GM in 0.9% Normal Saline (100mL Bag) 100 ML IV (13:32)
--- NOTE | 2023-08-15 13:33 | OP.PCM_ITS ---
Maternal Data Information KWASI Calculator Estimated Delivery Date Method Current WG Current Estimate 08/24/23 Manual 38w 5d Details Operative Information Date of Procedure: 08/15/23 Pre-Operative Diagnosis: (1) Inability of fetus to tolerate labor Post-Operative Diagnosis: Same Indications Narrative: The patient was taken to the operating room where epidural anesthesia was dosed & found to be adequate. She was prepped and draped in the dorsal supine position with a leftward tilt. A Pfannenstiel skin incision was made approximately 2 cm above the symphysis pubis and carried through to the underlying fascia with the scalpel. The fascia was incised incised in the midline and extended laterally with the Alvarez scissors. The rectus muscles were in the midline and the peritoneum was entered carefully and bluntly. The peritoneal incision was stretched and the bladder blade was inserted. Vesicouterine peritoneum was tented up, incised & then bladder flap created gently. The uterine incision was made in a low transverse fashion with the scalpel and extended superiorly and inferiorly with blunt dissection. The infant's head was brought to the incision in the flexed position and delivered without difficulty. The head was gently guided to allow delivery of the anterior and posterior shoulders. The body then delivered with fundal pressure in the standard fashion. The 3VC cord was clamped and cut in delayed fashion. The infant was handed off to the waiting pediatric physical therapy assistant. The placenta was delivered with fundal massage and gentle traction in the standard fashion. The uterus was exteriorized and cleared of clots and debris. The uterine incision was closed with #1 Vicryl suture in a running locked fashion. Monocryl suture was used in an imbricating fashion. The incision was examined and was found to be hemostatic. The uterus was returned to the abdominal cavity. After irrigating the bladder flap was bovie cauterized to obtain hemostasis and then Timmy was placed over the area. Then Timmy was placed over the uterine incision as some areas were denuded (but hemostatic). The peritoneum was closed with vicryl suture in running fashion The rectus muscle was examined and any bleeding was Bovie cauterized. Timmy was placed over the rectus muscle. The fascia was closed with PDS suture in a running standard fashion. The subcutaneous tissue was examining and any bleeding was Bovie cauterized. The subcutaneous tissue was reapproximated with interrupted sutures. The skin was closed in a subcuticular fashion by the IN FLIGHT REFUELING OPERATOR while I was present in the labor & delivery unit. The remainder of the procedure was performed by me with assistance. All sponge, lap, and needle counts were correct. The patient was taken to her room for recovery in a stable condition. Classification: STACI Procedure Type: low transverse railroad conductor #1: Rosa Antonio Type of Anesthesia: Epidural Antibiotic Given: Ancef 2 grams IV x1 Drain: [place] to straight drain Estimated Blood Loss: 800ml Fluids Replaced: 1500ml Procedure Start Time: 13:49 Procedure Stop Time: 14:33 Findings Description of Procedure: Normal maternal uterus and adnexa Presentation: Positive for Vertex Amniotic Membrane Rupture Type: Artificial Amniotic Fluid Description: Lightly stained meconium Placental Delivery Description: Expressed Placenta Disposition: [facility] Specimen(s) Sent to Pathology: none Cord Vessel Description: 3 Vessels Cord Entanglement: None A Gender: Male (weight = 3375g) (1 minute): 8 (5 minute): 9 Delayed Cord Clamping: Yes Complications Complications: none
[2023-08-15] MEDS: Oxytocin 15 Units/NS 250ml 15 UNITS/250 ML IV.SOLN 83 UNITS IV (14:50)
[2023-08-15] MEDS: Ketorolac 30 MG/ML Syringe IV ×2 (15:00→21:15)
[2023-08-15] MEDS: DiphenhydrAMINE 50 MG/ML Syringe 25 MG IV (16:09)
[2023-08-15] MEDS: Lactated Ringers 1,000 ML 100 ML IV (18:09)
[2023-08-15] MEDS: Acetaminophen 500 MG Tablet 1000 MG PO (19:27)
[2023-08-15] MEDS: 0.9% Saline Lock 10 ML Syringe IV (21:16)
[2023-08-15] MEDS: DiphenhydrAMINE 25 MG Capsule PO (23:24)
[2023-08-16 01:20] VITALS: BP 115/67; PULSE 109; RESP 16; TEMP 36.7; O2SAT 97
[2023-08-16] MEDS: Enoxaparin 40 MG/0.4 ML Syringe SC (01:22)
[2023-08-16] MEDS: Acetaminophen 500 MG Tablet 1000 MG PO ×4 (01:22→18:58)
[2023-08-16] MEDS: Ketorolac 30 MG/ML Syringe IV ×2 (02:57→09:09)
[2023-08-16] MEDS: 0.9% Saline Lock 10 ML Syringe IV ×3 (02:57→12:53)
[2023-08-16 04:13] VITALS: BP 140/80; PULSE 108; RESP 14; TEMP 36.9; O2SAT 98
[2023-08-16 04:42] LABS: Hematocrit 28.6 % (37-47); Hemoglobin 8.7 g/dL (12.0-15.0); Mean Corp Hgb Conc 30.4 g/dL (32-36); Mean Corpuscular Hgb 27.7 pg (27.0-32.0); Mean Corpuscular Volume 91.1 fL (81-99); Mean Platelet Vol. 11.1 fl (6.2-12.0); Platelet Count 256 K/mm3 (150-450); RBC Distribution Width CV 14.8 % (11.6-14.6); RBC Distribution Width SD 49.3 fl (35.1-43.9); Red Blood Count 3.14 M/mm3 (4.2-5.4); White Blood Count 17.1 K/mm3 (4.4-11.0)
[2023-08-16] MEDS: Senna/Docusate Sodium 1 Tablet PO (09:10)
[2023-08-16 09:11] VITALS: BP 108/70; PULSE 106; RESP 14; TEMP 36.8; O2SAT 97
--- NOTE | 2023-08-16 10:32 | PCM.PN.OB ---
Subjective Subjective Doing well per patient and nursing staff. Ambulating and taking PO without difficulty. Voiding and passing flatus. Pain controlled. , services for assistance. Denies headache, visual changes, chest pain, shortness of breath, leg pain or increased bleeding. Lochia normal. Objective Data Objective Data Vital Signs: Vital Signs Temp Pulse Resp BP Pulse Ox O2 Del Method 98.3 F 106 H 14 108/70 97 Room Air 08/16/23 09:11 08/16/23 09:11 08/16/23 09:11 08/16/23 09:11 08/16/23 09:11 08/16/23 09:11 Oxygen Delivery Method Room Air Weight: 161 lb 2.526 oz Body Mass Index (BMI) 28.5 Intake & Output: Intake and Output for Last 24 Hours 08/14/23 08/15/23 08/16/23 23:59 23:59 23:59 Intake Total 2828.33 / 2828.33 Output Total 1825 / 1825 500 / 500 Balance 1003.33 / 1003.33 -500 / -500 Lab / Micro Data 08/16/23 04:15 Labs: Laboratory Results - last 24 hr 08/16/23 04:15: WBC 17.1 H, RBC 3.14 L, Hgb 8.7 L, Hct 28.6 L, MCV 91.1, MCH 27.7, MCHC 30.4 L, RDW Std Deviation 49.3 H, RDW Coeff of Anthony 14.8 H, Plt Count 256, MPV 11.1 Micro: Microbiology 08/15/23 05:00 Interface Orders Chlamydia trachomatis (PCR) - Final 08/15/23 05:00 Interface Orders Neisseria gonorrhoeae (PCR) - Final ROS Constitutional Constitutional: Reports systems reviewed and no addt'l complaints, except as documented; Denies headache(s) Eyes Eyes: Denies acute decrease in peripheral vision, blurry vision or change in vision ENT HEENT: Reports systems reviewed and no addt'l complaints, except as documented Cardiovascular Cardiovascular: Denies chest pain or dizziness Respiratory/Chest Respiratory/Chest: Denies cough, dyspnea, dyspnea on exertion, shortness of breath at rest or shortness of breath with exertion Gastrointestinal Gastrointestinal: Denies abdominal pain, diarrhea, nausea or vomiting Genitourinary Genitourinary: Denies abdominal discomfort Musculoskeletal Musculoskeletal: Denies limited range of motion Integumentary Integumentary: Reports systems reviewed and no addt'l complaints, except as documented Neurologic Neurologic: Reports systems reviewed and no addt'l complaints, except as documented Psychiatric Psychiatric: Reports systems reviewed and no addt'l complaints, except as documented Endocrine Endocrinology: Reports systems reviewed and no addt'l complaints, except as documented Hematologic/Lymphatic Hematologic/Lymphatic: Reports systems reviewed and no addt'l complaints, except as documented Allergic/Immunologic Allergic/Immunologic: Reports systems reviewed and no addt'l complaints, except as documented Physical Exam Const alert and oriented x3 General Appearance: cooperative Orientation / Consciousness: awake, oriented to person, oriented to place and oriented to time Exam Limitations: no limitations HEENT normocephalic Head and Scalp: normal to inspection, normocephalic and atraumatic Face and Sinus: normal facial exam Eyes General Eye: normal appearance of both eyes Neck full ROM Chest Chest: symmetrical chest wall rise Resp normal respiratory effort and normal air movement Auscultation: clear to auscultation bilaterally Cardio regular rate, regular rhythm, S1 normal heart sound, S2 normal heart sound, no murmurs, no rub, no gallops and no clicks GI normal to inspection, nondistended, normoactive bowel sounds and non-tender GI Narrative: dressing dry and intact appearance of the vagina normal Bladder / Kidney Exam: no CVA tenderness Back/Spine normal ROM Extremity normal to inspection and full ROM Skin no rashes or lesions noted Neuro oriented x3 and moves all extremities Sensorium / Orientation: awake, alert and oriented to person Assessment & Plan (1) Status post primary low transverse section: (2) Lactating mother: PLAN: Plan 1) POD#1 LTCS 2) Pain management 3) I&O 4) Hgb 10.1-8.7, will give iron infusion. Venofer 200mg IVPB x 1. Repeat CBC in am 5) Planning D/C home tomorrow
[2023-08-16 12:50] VITALS: BP 116/72; PULSE 113; RESP 14; TEMP 36.7; O2SAT 98
[2023-08-16] MEDS: Iron Sucrose Complex 200 MG in 0.9% Normal Saline (100mL Bag) 100 ML 220 MG IV (12:53)
[2023-08-16] MEDS: Ibuprofen 600 MG Tablet PO ×2 (15:06→21:04)
--- NOTE | 2023-08-16 16:00 | NURSING ---
report given to Corey Hill RN
[2023-08-16 16:30] VITALS: BP 123/77; PULSE 110; RESP 15; TEMP 36.4
[2023-08-16 19:50] VITALS: BP 128/78; PULSE 115; RESP 18; TEMP 36.7; O2SAT 99
[2023-08-17 01:30] VITALS: BP 121/78; PULSE 109; RESP 18; TEMP 36.5; O2SAT 97
[2023-08-17] MEDS: Enoxaparin 40 MG/0.4 ML Syringe SC (01:32)
[2023-08-17] MEDS: Acetaminophen 500 MG Tablet 1000 MG PO ×2 (01:32→07:39)
[2023-08-17] MEDS: DiphenhydrAMINE 25 MG Capsule PO (01:41)
[2023-08-17] MEDS: Ibuprofen 600 MG Tablet PO ×2 (03:25→09:25)
--- NOTE | 2023-08-17 04:44 | PCM.PN.OB ---
Subjective Subjective Doing well per patient and nursing staff. Ambulating and taking PO without difficulty. Voiding and passing flatus. Pain controlled. , services for assistance. Denies headache, visual changes, chest pain, shortness of breath, leg pain or increased bleeding. Lochia normal. Objective Data Objective Data Vital Signs: Vital Signs Temp Pulse Resp BP Pulse Ox O2 Del Method 97.7 F L 109 H 18 121/78 H 97 Room Air 08/17/23 01:30 08/17/23 01:30 08/17/23 01:30 08/17/23 01:30 08/17/23 01:30 08/17/23 01:30 Oxygen Delivery Method Room Air Weight: 161 lb 2.526 oz Body Mass Index (BMI) 28.5 Intake & Output: Intake and Output for Last 24 Hours 08/15/23 08/16/23 08/17/23 23:59 23:59 23:59 Intake Total 2828.33 / 2828.33 110 / 110 Output Total 1825 / 1825 500 / 500 Balance 1003.33 / 1003.33 -390 / -390 Lab / Micro Data 08/16/23 04:15 Micro: Microbiology 08/15/23 05:00 Interface Orders Chlamydia trachomatis (PCR) - Final 08/15/23 05:00 Interface Orders Neisseria gonorrhoeae (PCR) - Final ROS Constitutional Constitutional: Reports systems reviewed and no addt'l complaints, except as documented; Denies headache(s) Eyes Eyes: Denies acute decrease in peripheral vision, blurry vision or change in vision ENT HEENT: Reports systems reviewed and no addt'l complaints, except as documented Cardiovascular Cardiovascular: Denies chest pain or dizziness Respiratory/Chest Respiratory/Chest: Denies cough, dyspnea, dyspnea on exertion, shortness of breath at rest or shortness of breath with exertion Gastrointestinal Gastrointestinal: Denies abdominal pain, diarrhea, nausea or vomiting Genitourinary Genitourinary: Denies abdominal discomfort Musculoskeletal Musculoskeletal: Denies limited range of motion Integumentary Integumentary: Reports systems reviewed and no addt'l complaints, except as documented Neurologic Neurologic: Reports systems reviewed and no addt'l complaints, except as documented Psychiatric Psychiatric: Reports systems reviewed and no addt'l complaints, except as documented Endocrine Endocrinology: Reports systems reviewed and no addt'l complaints, except as documented Hematologic/Lymphatic Hematologic/Lymphatic: Reports systems reviewed and no addt'l complaints, except as documented Allergic/Immunologic Allergic/Immunologic: Reports systems reviewed and no addt'l complaints, except as documented Physical Exam Const alert and oriented x3 General Appearance: cooperative Orientation / Consciousness: awake, oriented to person, oriented to place and oriented to time Exam Limitations: no limitations HEENT normocephalic Head and Scalp: normal to inspection, normocephalic and atraumatic Face and Sinus: normal facial exam Eyes General Eye: normal appearance of both eyes Neck full ROM Chest Chest: symmetrical chest wall rise Resp normal respiratory effort and normal air movement Auscultation: clear to auscultation bilaterally Cardio regular rate, regular rhythm, S1 normal heart sound, S2 normal heart sound, no murmurs, no rub, no gallops and no clicks GI normal to inspection, nondistended, normoactive bowel sounds and non-tender GI Narrative: dressing dry and intact. Fundus firm 2 below U appearance of the vagina normal Bladder / Kidney Exam: no CVA tenderness Back/Spine normal ROM Extremity normal to inspection and full ROM Skin no rashes or lesions noted Neuro oriented x3 and moves all extremities Sensorium / Orientation: awake, alert and oriented to person Motor Exam: clonus absent Assessment & Plan (1) Lactating mother: (2) Status post primary low transverse section: PLAN: Plan 1) POD #2 LTCS 2) 3) Vitals stable 4) I&O 5) Pain management 6) D/C home today, follow up in 2 weeks and 6 weeks PP
--- NOTE | 2023-08-17 04:47 | DCINST_ITS ---
Discharge Instructions Diet Discharge Diet: No restrictions Activity Discharge Activity: Return to Normal Activity, May Not Drive (until after 2 weeks), May Shower and May Take a Tub Bath May resume sexual activity in: 6 weeks Weight Bearing Status: Full weight bearing Lifting Restrictions: Less than 20 lbs Dressing / Incision Call your doctor if your incision/area has: Continuous Slow Oozing, Sudden Increased Bleeding, Increased Pain/ Swelling, Increased Redness, Foul Smelling Discharge and Swelling at the incision site Call your doctor if you observe: Fever of 101 or Higher, Inability to urinate, Using more than 1 pad per hour, Shortness of breath, Dizziness, Chest pain, Calf discomfort and Uncontrolled pain Suture Line Care: Avoid Pulling/Pushing Remove Dressing in: 5 days Cleanse incision/area with: Soap & Water Follow Up Care Please Follow Up With: Claudia Stone CNM When: 2 weeks for virtual visit and 6 weeks for PP visit Test Results: Test results from this visit will be discussed in further detail at your follow- up appointment, if applicable. Discharge Plan Admission Admit Date/Time: 08/15/23 04:38 Primary Reason for Your Visit: Section Attending Provider: Camden Rivera Primary Care Provider: Marcy PhysicianLeigh Primary Discharge Orders/Prescriptions Prescriptions: New acetaminophen 500 mg Tablet 1,000 mg PO Q6H Qty: 0 0RF ibuprofen 600 mg Tablet 600 mg PO Q6H Qty: 0 0RF oxycodone 5 mg Tablet 5 - 10 mg PO Q4H PRN PRN (Reason: Pain Score 4-10) 7 Days Qty: 10 0RF sennosides-docusate sodium [Stool Softener-Stimulant Laxat] 8.6-50 mg Tablet 1 - 2 tab PO DAILY Qty: 30 0RF Referrals / Follow Up: Care PhysicianLeigh Primary [Primary Care Provider] - Disposition Disposition (needs filled in before D/C Order can be placed): Home, Self Care
--- NOTE | 2023-08-17 04:52 | PCM.DC.SUM ---
Providers Date of Admission: 08/15/23 Primary Care Physician: Leigh Primary Care Phys Reason For Visit: PRIMARY Diagnosis Discharge Diagnosis (1) Lactating mother: Status: Acute Code(s): Z39.1 - Encounter for care and examination of lactating mother (2) Status post primary low transverse section: Status: Acute Code(s): Z98.891 - History of uterine scar from previous surgery Plan 1) POD #2 LTCS 2) 3) Vitals stable 4) I&O 5) Pain management 6) D/C home today, follow up in 2 weeks and 6 weeks PP Medications at Discharge Home Medications acetaminophen 500 mg tablet 1,000 mg (2 x 500 mg) PO Q6H #0 tabs 08/17/23 ibuprofen 600 mg tablet 600 mg PO Q6H #0 tabs 08/17/23 oxycodone 5 mg tablet 5 - 10 mg (1 - 2 x 5 mg) PO Q4H PRN PRN Pain Score 4-10 7 days #10 tabs 08/17/23 sennosides 8.6 mg-docusate sodium 50 mg tablet (Stool Softener-Stimulant Laxative) 1 - 2 tab PO DAILY #30 tabs 08/17/23 Hospital Course Summary of Care Provided Minutes Spent on Discharge: 15 Hospital Course: Presented to hospital in active labor. Progressed to complete dilation and pushing efforts. intolerance and remote from delivery. Primary LTCS completed by . course with acute blood loss anemia and iron infusion given. Remainder of course uncomplicated. Discharge home on POD #2 Weight / BMI Weight Weight: 161 lb 2.526 oz Body Mass Index (BMI) 28.5 ABG / Lab / Microbiology Data 08/16/23 04:15 Microbiology: Microbiology 08/15/23 05:00 Interface Orders Chlamydia trachomatis (PCR) - Final 08/15/23 05:00 Interface Orders Neisseria gonorrhoeae (PCR) - Final D/C Instructions Discharge Diet: No restrictions May resume sexual activity in: 6 weeks Weight Bearing Status: Full weight bearing Call your doctor if your incision/area has: Continuous Slow Oozing, Sudden Increased Bleeding, Increased Pain/ Swelling, Increased Redness, Foul Smelling Discharge and Swelling at the incision site Call your doctor if you observe: Fever of 101 or Higher, Inability to urinate, Using more than 1 pad per hour, Shortness of breath, Dizziness, Chest pain, Calf discomfort and Uncontrolled pain Suture Line Care: Avoid Pulling/Pushing Cleanse incision/area with: Soap & Water Please Follow Up With: Claudia Stone CNM When: 2 weeks for virtual visit and 6 weeks for PP visit Meaningful Use Info Meaningful Use Diagnoses (Choose all that apply): None applicable Discharge Plan Admission Admit Date/Time: 08/15/23 04:38 Primary Reason for Your Visit: Section Attending Provider: Camden Rivera Primary Care Provider: Care PhysicianLeigh Primary Discharge Orders/Prescriptions Prescriptions: New acetaminophen 500 mg Tablet 1,000 mg PO Q6H Qty: 0 0RF ibuprofen 600 mg Tablet 600 mg PO Q6H Qty: 0 0RF oxycodone 5 mg Tablet 5 - 10 mg PO Q4H PRN PRN (Reason: Pain Score 4-10) 7 Days Qty: 10 0RF sennosides-docusate sodium [Stool Softener-Stimulant Laxat] 8.6-50 mg Tablet 1 - 2 tab PO DAILY Qty: 30 0RF Referrals / Follow Up: Care Physician,No Primary [Primary Care Provider] - Disposition Disposition (needs filled in before D/C Order can be placed): Home, Self Care
[2023-08-17 05:16] LABS: Absolute Lymphocyte Count 1.74 X10^3/uL (0.83-4.51); Absolute Neutrophil Count 9.6 X10^3/uL (2.0-7.7); Basophil# 0.06 X10^3/uL; Basophil% 0.5 % (0-1); Eosinophil# 0.09 X10^3/uL; Eosinophils% 0.7 % (0-5); Hematocrit 26.3 % (37-47); Lymphocyte # 1.74 X10^3/ul (0.83-4.51); Lymphocyte % 14.1 % (19-41); Mean Corp Hgb Conc 30.4 g/dL (32-36); Mean Corpuscular Hgb 27.7 pg (27.0-32.0); Mean Platelet Vol. 9.9 fl (6.2-12.0); Monocyte# 0.73 X10^3/uL; Monocyte% 5.9 % (0-10); NRBC Flagged by Analyzer 0 % (0-5); Neutrophil # 9.64 X10^3/uL (2.7-7.7); Neutrophil % 78.1 % (47-70); Platelet Count 249 K/mm3 (150-450); RBC Distribution Width CV 14.9 % (11.6-14.6); RBC Distribution Width SD 49.5 fl (35.1-43.9); Red Blood Count 2.89 M/mm3 (4.2-5.4); White Blood Count 12.4 K/mm3 (4.4-11.0)
[2023-08-17 07:24] VITALS: BP 125/81; PULSE 115; RESP 16; TEMP 36.9; O2SAT 99
[2023-08-17] MEDS: Senna/Docusate Sodium 1 Tablet PO (09:25)
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
== END 2023-08-17 11:15 | disposition home or self-care (01) | DRG 540 ==
LOC: WPOUT 04:38 → WP 04:38
PROVIDERS: Advanced Practice Midwife; Admitting Provider Obstetrics & Gynecology; Referring Provider Obstetrics & Gynecology; Visit Provider Obstetrics & Gynecology
DX: O76 Abnormality in fetal heart rate and rhythm complicating labor and delivery (principal); N13.30 Unspecified hydronephrosis; F12.99 Cannabis use, unspecified with unspecified cannabis-induced disorder; F32.A Depression, unspecified; F17.290 Nicotine dependence, other tobacco product, uncomplicated; F41.9 Anxiety disorder, unspecified; O99.324 Drug use complicating childbirth; Z37.0 Single live birth; Z3A.38 38 weeks gestation of pregnancy; Z91.52 Personal history of nonsuicidal self-harm; O99.334 Smoking (tobacco) complicating childbirth; O99.344 Other mental disorders complicating childbirth; O99.892 Other specified diseases and conditions complicating childbirth
CPT/HCPCS: 59025; 59050; 80307; 85025; 85027; 86780; 86803; 86850; 86900; 86901; 87491; 87591; 99221; J1756; J7120; A4216; G0378; J2405

== ENCOUNTER 2023-12-15 06:37 | Emergency (ER) | payer MEDICAID, SELFPAY ==
[2023-12-15 06:38] VITALS: BP 111/71; PULSE 125; RESP 18; TEMP 37; O2SAT 95; BMI 25.1
--- NOTE | 2023-12-15 07:06 | EX.ED.VIS.UR ---
HPI HPI - URI History of Present Illness Chief Complaint: Sore Throat Informant: patient Onset/Context/Timing Onset: Yesterday Context: Gradual Onset Timing: Continuous Quality: Sharp Location: Throat Worsened by: Swallowing Relieved by: - (Nothing) Associated Symptoms Associated Symptoms: Positive for Nasal Congestion and Nonproductive cough; Negative for Headache, Sinus Pressure, Myalgias, Nausea, Vomiting, Diarrhea, Shortness of Breath, Chest Pain, Hemoptysis or Productive Cough Narrative Narrative: Patient presents with a sore throat and earache that began yesterday. Patient states it became worse this morning. Patient states her pain is sharp. Patient states it is worse with swallowing. Patient states the pain radiates into her ears. Patient admits to some subjective fevers but did not take her temperature. Patient admits to a cough but denies any sputum production. Patient denies any chest pain or shortness of breath. Patient denies any headache or sinus pressure. ROS ROS ED Constitutional Constitutional ED: Reports fever(s) and subjective; Denies chills Eyes Eyes: Denies blurry vision or change in vision ENT ENT ED: Reports ear pain and sore throat; Denies rhinorrhea Cardiovascular Cardiovascular: Denies chest pain or palpitations Respiratory/Chest Respiratory/Chest: Reports cough; Denies dyspnea Gastrointestinal Gastrointestinal: Denies nausea or vomiting Genitourinary Genitourinary ED: Denies dysuria or hematuria Musculoskeletal Musculoskeletal: Reports neck pain; Denies back pain Integumentary Denies abscess or rash Neurologic Neurologic: Denies headache(s) or weakness Allergic/Immunologic Allergic/Immunologic ED: Denies mouth swelling or urticaria PFSH PFSH Medical History Anorexia Depression Headache PTSD (post-traumatic stress disorder) Vaginal cyst Home Medications NK 12/15/23 [History Last Taken Unknown] Allergy/AdvReac Type Severity Reaction Status Date / Time sulfamethoxazole AdvReac Mild Vomiting Verified 12/15/23 06:41 [From Bactrim] trimethoprim [From Bactrim] AdvReac Mild Vomiting Verified 12/15/23 06:41 Surgical History History of appendectomy Social History household members: significant other Smoking Status: Heavy Smoker (>10/day) alcohol intake: former substance use type: former substance user Date of last use: Marijuana EXAM Physical Exam Const Vital Signs: 12/15/23 06:38 Temperature 98.6 F Temperature Source Temporal Pulse Rate 125 H Respiratory Rate 18 Blood Pressure 111/71 Blood Pressure Mean 84 Pulse Ox 95 Oxygen Delivery Method Room Air Positive well nourished and well developed General Appearance ED: well developed and NAD HEENT Reports moist mucous membranes Throat: tonsils abnormal bilateral erythema Eyes PERRL and EOMs intact bilaterally Neck supple, no meningeal signs and no JVD General: lymphadenopathy anterior cervical tender Neuro oriented x3, CN's II-XII intact bilaterally and no sensory deficits noted Sensorium / Orientation: alert Motor Exam: strength 5/5 throughout Psych mental status grossly normal MDM MDM MDM Narrative Medical decision making narrative: Differential diagnosis includes strep pharyngitis and viral pharyngitis. Rapid strep will be obtained to assess for strep pharyngitis. COVID-19, influenza, and RSV PCR will be obtained to assess for viral infection. Lab Data Lab results narrative: Rapid strep was reviewed and was positive. COVID-19 PCR was reviewed and was negative. Influenza PCR was reviewed and was negative for influenza A and influenza B. RSV PCR was reviewed and was negative. Treatment and Re-Evaluation Narrative: Nicotine cessation was discussed. Patient was advised of her findings. Patient was given a dose of amoxicillin here. Patient was given a prescription for amoxicillin. Patient was instructed to follow-up with her primary care physician in 5 to 7 days. Patient was instructed return if worse in any way. Patient was instructed to continue Tylenol and ibuprofen as needed for any pain or fever. Patient understood and was agreeable with the plan. All questions were answered. Discharge Plan Triage Chief Complaint: Sore Throat ED Provider: Atilio Darby Dx/Rx/DC Orders Clinical Impression: Vapes nicotine containing substance, Acute streptococcal pharyngitis Instructions: ED Pharyngitis, Strep (Confirmed) Prescriptions: No Action NK Stand Alone Forms: ED Work / School Excuse Primary Care Provider: Zach Good Referrals: Zach Good DO [Primary Care Provider] - 5-7 Days Disposition Disposition: Home, Self Care
--- OUTSIDE RECORDS SUMMARY | 2023-12-15 07:48 | XMS RPT_ITS | CCD ---
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 O99.320, F12.90 P: 1) PTL precautions reviewed and when to call. Educated on CE and s/s of labor- questions answered 2) RTO 1 week or sooner if needed Merle Bone APRN.CNM documented in this encounter [facility] 08-12-2023 Instructions Mayra Lara MA - 08/12/2023 4:09 PM EDT SEQUENTIAL SCREENINGS The [facility] offers sequential screenings for women who are interested in screenings for chromosomal abnormalities and certain defects during a . The sequential screen combines ultrasound and blood tests to determine the risk of chromosomal abnormalities, including Down's Syndrome (Trisomy 21) and Trisomy 18, as well as open neural tube defects including spina bifida. Ultrasound examination is performed between 11 weeks and 13 weeks gestational age. Blood tests are drawn after the ultrasound and again later in the between 15 and 21 weeks gestational age. Please let your physician know if you are interested in this testing. It will require an appointment with our surface lay out technician. This is not an ultrasound performed by a physician in our office during a routine visit. SIGNS AND SYMPTOMS OF LABOR 1. Contractions every 10 minutes or more often 2. Clear, pink, or brownish fluid (water) leaking from vagina 3. Feeling that baby is pushing down, pressure 4. Low, dull backache 5. Cramps that feel like a period 6. Cramps with or without diarrhea If you notice any of the above symptoms, contact our office at [phone] and ask to speak with a nurse. After hours, you can call doctors registry at [phone] OR call [facility] at [phone] and ask to have the doctor inhalation therapist paged. If you consider this an emergency, dial 3-0-6 or go to your nearest emergency department. NEED HELP? Are you dealing with a violent or abusive relationship? Are you a victim of rape or sexual assult? Call [facility] ([facility] 24 hour Crisis Hotline: 842.460.8307 or 959-783-7446. MANUAL Your Guide to a Healthy manual is now on-line. Visit [email or web address] to download your free copy documented in this encounter [facility] 08-11-2023 Note Patient Outreach (MICHEL TNAV) JEWELL LOUIS ([id number]) 1 F Date Time Provider Department 08/11/23 MAYRA JUDD During your visit today, we recorded the following information about you: Mayra Judd MA 08/11/2023 10:51 AM Signed POPULATION HEALTH NAVIGATION OUTREACH Action/FYI 1st attempt: Called and left message to call back to discuss clinical operations manager. message sent. Patient Identified by Name and : NO Outreach Outcome/Action Unable to reach patient: Left message MyChart message sent Did you use a PCP flex slot to schedule this appointment? N/A Reason for Outreach Payer: Payor: [facility] MEDICAID / Plan: [facility] MEDICAID / Product Type: Medicaid / Care Gap Reviewed:: N/A Reminder: Reminder note to check Health Maintenance for items below Health Maintenance items due: Hepatitis B Vaccine(1 of 3 - 3-dose series) Never done HPV Vaccine(2 - 2-dose series) due on 05/22/2015 GC (Gonorrhea) Screening (18-24) Never done Hepatitis C Screening Never done HIV Screening Never done Chlamydia Screening (18-24) Never done DTaP,Tdap,Td Vaccine(1 - Tdap) Never done Influenza Vaccine(1) Never done Covid-19 Vaccine(3 - 2022- season) due on 06/19/2023 Navigation Signature: Mayra Macdonald MA August 11, 2023 10:51 AM Mayra Judd MA 08/18/2023 11:19 AM Signed POPULATION HEALTH NAVIGATION OUTREACH Action/FYI Pt delivered, no second outreach needed. Patient Identified by Name and : NO Outreach Outcome/Action See FYI Navigation Signature: Mayra Macdonald MA August 18, 2023 11:19 AM Allergies As of Date: 08/11/2023 Noted Allergy Reaction BACTRIM (SULFAMETHOXAZOLE-TRIMETH*2022 11 - Vomiting Date Reviewed: 08/05/2023 Reviewed by: Merle Bone APRN.CNM - Fully Assessed Reason for Visit: Population Health Navigation Outreach [3910] Cmt: Peds/OB Prescriptions as of 08/18/2023 - cephALEXin (KEFLEX) 500 mg capsule Take 500 mg by mouth. - famotidine (PEPCID) 20 mg tablet Take 1 tablet by mouth twice daily. - Lidocaine-Hydrocortisone Ac 3-0.5 % crea by RECTAL route twice daily for 14 days. 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 Author Type: Admitted Attorneys Type: Progress Notes Filed: 08/11/2023 10:51 AM Note Text: POPULATION HEALTH NAVIGATION OUTREACH Action/ 1st attempt: Called and left message to call back to discuss clinical operations manager. message sent. Patient Identified by Name and : NO Outreach Outcome/Action Unable to reach patient: Left message MyChart message sent Did you use a PCP flex slot to schedule this appointment? N/A Reason for Outreach [place] Payer: Payor: [employer] MEDICA[employer] / [facility] / Product Type: Medicaid / Care Gap Reviewed:: N/A Reminder: Reminder note to check Health Maintenance for items below Health Maintenance items due: Hepatitis B Vaccine(1 of 3 - 3-dose series) Never done HPV Vaccine(2 - 2-dose series) due on 05/22/2015 GC (Gonorrhea) Screening (18-24) Never done Hepatitis C Screening Never done HIV Screening Never done Chlamydia Screening (18-24) Never done DTaP,Tdap,Td Vaccine(1 - Tdap) Never done Influenza Vaccine(1) Never done Covid-19 Vaccine( - season) due on 06/19/2023 Navigation Signature: Mayra Macdonald MA August 11, 2023 10:51 AM [facility] 08-11-2023 History of Presen t illness Narrative POPULATION HEALTH NAVIGATION OUTREACH Action/ 1st attempt: Called and left message to call back to discuss clinical operations manager. message sent. Patient Identified by Name and : NO Outreach Outcome/Action Unable to reach patient: Left message MyChart message sent Did you use a PCP flex slot to schedule this appointment? N/A Reason for Outreach [place] Payer: Payor: [facility] MEDICAID / Plan: [facility] MEDICAID / Product Type: Medicaid / Care Gap Reviewed:: N/A Reminder: Reminder note to check Health Maintenance for items below Health Maintenance items due: Hepatitis B Vaccine(1 of 3 - 3-dose series) Never done HPV Vaccine(2 - 2-dose series) due on 05/22/2015 GC (Gonorrhea) Screening (18-24) Never done Hepatitis C Screening Never done HIV Screening Never done Chlamydia Screening (18-24) Never done DTaP,Tdap,Td Vaccine(1 - Tdap) Never done Influenza Vaccine(1) Never done Covid-19 Vaccine( - season) due on 06/19/2023 Navigation Signature: Mayra Macdonald MA August 11, 2023 10:51 AM documented in this encounter [facility] 08-06-2023 Miscellaneous Notes Patient notified. Please leave open for blood management. ANDREZ MASSEY RN ----- Message from Merle Bone APRN.CNM sent at 08/05/2023 5:04 PM EDT ----- Preeclampsia labs are normal. HGB is low at 9.9. Iron studies ordered and consult to blood management for possible iron infusions placed. Please notify patient and assist with scheduling. Merle Bone APRN.CNM Referral to [facility]. Pt is transfer from [place]. Sent to [place] and [place] team to assist with scheduling. documented in this encounter [facility] 08-05-2023 Miscellaneous Notes S: Jewell Louis is a 18 year old female who presents at 37.2 weeks gestation for a routine visit. Migraine yesterday that resolved with Tylenol. Blood pressure slightly elevated today for patient- True BP- 124/82. Denies current headache, visual changes, chest pain, shortness of breath, vaginal bleeding, leakage of fluid, or dysuria. O: See flow sheet Gen: No apparent distress Abd: Gravid, nontender EXT- no edema, +2 reflexes, no clonus Weight gain- 7 lbs since last week ASSESSMENT/PLAN: 1. Encounter for supervision of normal first in third trimester - ICD9: V22.0, ICD10: Z34.03 (primary diagnosis) 2. 37 weeks gestation of - ICD9: V22.2, ICD10: Z3A.37 3. Elevated blood pressure without diagnosis of hypertension - Will get baseline Pre-E labs today - Reviewed dietary choices with patient- increased sodium intake over the past couple of weeks- will try and limit - Increase hydration - Preeclampsia and labor precautions reviewed and when to contact provider - RTO- 1 week or sooner if needed Merle Bone APRN.CNM documented in this encounter [facility] 08-05-2023 Bishnu Ruiz Cma - 08/05/2023 12:58 PM EDT SEQUENTIAL SCREENINGS The [facility] offers sequential screenings for women who are interested in screenings for chromosomal abnormalities and certain defects during a . The sequential screen combines ultrasound and blood tests to determine the risk of chromosomal abnormalities, including Down's Syndrome (Trisomy 21) and Trisomy 18, as well as open neural tube defects including spina bifida. Ultrasound examination is performed between 11 weeks and 13 weeks gestational age. Blood tests are drawn after the ultrasound and again later in the between 15 and 21 weeks gestational age. Please let your physician know if you are interested in this testing. It will require an appointment with our surface lay out technician. This is not an ultrasound performed by a physician in our office during a routine visit. SIGNS AND SYMPTOMS OF LABOR 1. Contractions every 10 minutes or more often 2. Clear, pink, or brownish fluid (water) leaking from vagina 3. Feeling that baby is pushing down, pressure 4. Low, dull backache 5. Cramps that feel like a period 6. Cramps with or without diarrhea If you notice any of the above symptoms, contact our office at [phone] and ask to speak with a nurse. After hours, you can call doctors registry at [phone] OR call [facility] at [phone] and ask to have the doctor inhalation therapist paged. If you consider this an emergency, dial 3-1-0 or go to your nearest emergency department. NEED HELP? Are you dealing with a violent or abusive relationship? Are you a victim of rape or sexual assult? Call [facility] ([place]) 24 hour Crisis Hotline: 652.834.6722 or 121-924-1400. MANUAL Your Guide to a Healthy manual is now on-line. Visit [email or web address] to download your free copy documented in this encounter [facility] 07-17-2023 Miscellaneous Notes 2nd risk assessment form submitted 07/17/23 Vonnie Turner RN documented in this encounter [facility] 07-13-2023 Miscellaneous Notes S: Jewell Louis is a 18 year old female who presents at 34 weeks gestation for a routine visit. Seen at ED last week for cramps and dehydration. Hydrated and sent home. C/O hemorrhoids that are painful. Denies constipation or straining. Actually having softer / liquid stools at times. Pain with sitting. Positive movement. Denies headache, visual changes, chest pain, shortness of breath, vaginal bleeding, leakage of fluid, or dysuria. O: See flow sheet Gen: No apparent distress Abd: Gravid, nontender Decorative Engraver Apprentice: small, left side bartholin cyst noted. Tender with palpation. Soft. Declines I&D. Hemorrhoids- no thrombosis seen ASSESSMENT/PLAN: 1. Encounter for supervision of normal first in third trimester - ICD9: V22.0, ICD10: Z34.03 (primary diagnosis - URINE OB DIP B/O 2. 34 weeks gestation of - ICD9: V22.2, ICD10: Z3A.34 3. Hemorrhoids, unspecified hemorrhoid type - ICD9: 455.6, ICD10: K64.9 - Rx for ANUSOL suppositories 4. Cyst of Bartholin's gland - ICD9: 616.2, ICD10: N75.0 - Warm compress to area - Sitz bath - Will call if desires I&D P: 1) PTL precautions reviewed and when to call 2) RTO 2 weeks for GISELLE with US ([facility]) Merle Bone APRN.CNM documented in this encounter [facility] 07-13-2023 Instructions Christine Kevin LPN - 07/13/2023 7:55 AM EDT SEQUENTIAL SCREENINGS The [facility] offers sequential screenings for women who are interested in screenings for chromosomal abnormalities and certain defects during a . The sequential screen combines ultrasound and blood tests to determine the risk of chromosomal abnormalities, including Down's Syndrome (Trisomy 21) and Trisomy 18, as well as open neural tube defects including spina bifida. Ultrasound examination is performed between 11 weeks and 13 weeks gestational age. Blood tests are drawn after the ultrasound and again later in the between 15 and 21 weeks gestational age. Please let your physician know if you are interested in this testing. It will require an appointment with our surface lay out technician. This is not an ultrasound performed by a physician in our office during a routine visit. SIGNS AND SYMPTOMS OF LABOR 1. Contractions every 10 minutes or more often 2. Clear, pink, or brownish fluid (water) leaking from vagina 3. Feeling that baby is pushing down, pressure 4. Low, dull backache 5. Cramps that feel like a period 6. Cramps with or without diarrhea If you notice any of the above symptoms, contact our office at [phone] and ask to speak with a nurse. After hours, you can call doctors registry at [phone] OR call [facility] at [phone] and ask to have the doctor inhalation therapist paged. If you consider this an emergency, dial or go to your nearest emergency department. NEED HELP? Are you dealing with a violent or abusive relationship? Are you a victim of rape or sexual assult? Call [facility] ([place]) 24 hour Crisis Hotline: 455.917.8141 or 230-327-7011. MANUAL Your Guide to a Healthy manual is now on-line. Visit [email or web address] to download your free copy documented in this encounter [facility] 06-29-2023 Miscellaneous Notes Pt returned call and was given below results and will schedule follow up ultrasound at her next visit. Christine Kevin LPN Message left asking pt to contact office for results and instructions. Christine Kevin LPN ----- Message from Merle Bone APRN.CNM sent at 06/26/2023 2:54 PM EDT ----- Reviewed. Pyelectasis resolved. Follow up US with [facility] 36-37 weeks gestation to confirm resolution. Merle Bone APRN.CNM documented in this encounter [facility] 06-27-2023 Miscellaneous Notes Patient calling regarding her test results from her OB doctor. Conferenced to [facility] forder operator, to speak with provider inhalation therapist for Dr. Bone. Patient denies any new or worsening symptoms that a provider is unaware of. documented in this encounter [facility] 06-26-2023 Miscellaneous Notes Call to Jewell at the request of Merle Bone to notify her that she no longer needs to come to [facility] for a consult and that her US today looked good. Appointments were cancelled. She was instructed to call the office to schedule an US for 36-37 weeks at [place]. She verbalized understanding documented in this encounter [facility] 06-26-2023 Miscellaneous Notes Order signed. Note that patient is here in office today for ultrasound. Merle Bone APRN.CNM 31w3d [facility] in [place] calling for u/s order. She is scheduled there on 07/02/23. Please file order. No need to call them back. Kiki Rodrigues RN documented in this encounter [facility] 06-24-2023 Miscellaneous Notes Please notify patient that the lab results are within normal range for . Thank you Merle Bone APRN.CNM 31w2d Regarding CBC results documented in this encounter [facility] 06-15-2023 Miscellaneous Notes Jewell returned my call and is agreeable to coming to [place] for an US and a MFM consult. left with my contact info for Jewell to return my call to schedule an appt with MFM documented in this encounter [facility] 06-10-2023 Miscellaneous Notes Patient is at 29.2 weeks gestation that is a transfer of care from [place], [place]. Her and partner just moved here. She has received care and ultrasounds. Records available for review. She was told infant has bilateral pyelectasis. Will place order for MFM consult and ultrasound for confirmation. Patient has a history of depression, anxiety, anorexia, and self mutualization. No recent treatment, medications or hospitalizations. Denies any SI/HI. Interested in referral to [facility]. See progress note. Merle Bone APRN.CNM documented in this encounter [facility] 06-10-2023 Note HNO ID: [id number] Author: Merle Bone APRN.CNM Service: ? Author Type: Snagger Type: Progress Notes Filed: 06/10/2023 5:50 PM Note Text: INITIAL OB ASSESSMENT HPI: Jewell is a 18 year old No obstetric history on file. White here to establish Obstetrical Care. Patient's last menstrual period was 11/17/2022. from OB Dating Form. Cycles regular was unplanned but accepted She is a transfer of care from [place]. Complaints: None OB History T0 L0 SAB0 IAB0 Ectopic0 Multiple0 Live Births0 Patient's Risk Screening for delivery: Have you had a prior fuentes between 20w and 36w6d?: No MEDICAL/PSYCHOSOCIAL HISTORY: History of hemorrhage or bleeding concerns: No Thyroid Disease: No History of chronic hypertension: No History of pre-existing diabetes: No No results found for: ABORHD BMI 25.15 kg/(m2) History of abnormal pap: No Prior treatment for cervical dysplasia: none. 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 I don't have enough money to pay my bills: Rarely Within the past 12 months, have you worried that your food would run out before you had money to buy more: Rarely In the past 12 months, has lack of reliable transportation kept you from going to medical appointments or work, or from keeping things needed for daily living: Never In the past 12 months, have you had any concerns about having a place to live, or about the condition or quality of your housing: Never Are there any cultural or spiritual needs we should be aware of: No Depression: admits to symptoms of depression. OB Depression and Anxiety Screening- This Encounter (since 06/09/2023) Over the past 2 weeks have you felt down, depressed, or hopeless? Positive - Further Testing Indicated Over the past two weeks, have you felt little interest or pleasure in doing things?? Positive - Further Testing Indicated I have been able to laugh and see the funny side of things. As much as I always could I have looked forward with enjoyment to things. As much as I ever did I have blamed myself unnecessarily when things went wrong. Yes, most of the time I have been anxious or worried for no good reason. Yes, sometimes I have felt scared or panicky for no good reason. No, not at all Things have been getting on top of me. No, most of the time I have coped quite well I have been so unhappy that I have had difficulty sleeping. Not very often I have felt sad or miserable. Yes, quite often I have been so unhappy that I have been crying. Yes, quite often The thought of harming myself has occurred to me. Yes, quite often [place] Depression Scale Total 14 Feeling nervous, anxious or on edge 1-Several days Not being able to stop or control worrying 1-Several days Anxiety Pre-Screening Total (If >/= 3 additional questions will be reviewed) 2 GENETIC SCREENING: Partner present: Yes Patient verbalized knowledge of partner family health history: Yes Do you or your partner have any personal or family history of defects not previously discussed: Yes, Every Boy on FOB's side of the family has been born with a whole in their hearts- none of the boys need surgery for this (per patient). Do you have history of a complicated by anomaly, genetic condition, or demise: No Marital Status:Committed Relationship Partner: Name: Blas Renee Age: 24 Occupation: Not employed Gender: Male History of STDs: None PAST MEDICAL HISTORY Diagnosis Date Depression with anxiety Pilonidal cyst 2022 PAST SURGICAL HISTORY Procedure Laterality Date APPENDECTOMY patient was in 6th grade PAST SURGICAL HISTORY OF Left 04/07/2022 Benign Cyst Removal from [facility] No current outpatient medications on file. No current facility-administered medications for this visit. Allergies As of Date: 06/10/2023 Allergen Noted Reaction BACTRIM [SULFAMETHOXAZOLE-TRIMETH*2022 Vomiting Fully Assessed 06/10/2023 Does patient have penicillin allergy: No REVIEW OF SYSTEMS: GENERAL: Negative for: Fever or Chills and Positive for: Fatigue HEENT: Negative for: Impaired Vision, Ringing in Ears, Nosebleeds Headaches off and on NECK: Negative for: Swelling, Pain, Stiffness RESPIRATORY: Negative for: Cough, Shortness of breath, Wheezing GASTROINTE (more content not included)... [facility] 06[facility]10[facility]2023 History of Presen t illness Narrative INITIAL OB ASSESSMENT HPI: Jewell is a 18 year old No obstetric history on file. White here to establish Obstetrical Care. Patient's last menstrual period was 11/17/2022. from OB Dating Form. Cycles regular was unplanned but accepted She is a transfer of care from [facility]. Complaints: None OB History T0 L0 SAB0 IAB0 Ectopic0 Multiple0 Live Births0 Patient's Risk Screening for delivery: Have you had a prior fuentes between 20w and 36w6d?: No MEDICAL/PSYCHOSOCIAL HISTORY: History of hemorrhage or bleeding concerns: No Thyroid Disease: No History of chronic hypertension: No History of pre-existing diabetes: No No results found for: ABORHD BMI 25.15 kg/(m^2) History of abnormal pap: No Prior treatment for cervical dysplasia: none. 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 I don't have enough money to pay my bills: Rarely Within the past 12 months, have you worried that your food would run out before you had money to buy more: Rarely In the past 12 months, has lack of reliable transportation kept you from going to medical appointments or work, or from keeping things needed for daily living: Never In the past 12 months, have you had any concerns about having a place to live, or about the condition or quality of your housing: Never Are there any cultural or spiritual needs we should be aware of: No Depression: admits to symptoms of depression. OB Depression and Anxiety Screening- This Encounter (since 06/09/2023) Over the past 2 weeks have you felt down, depressed, or hopeless? Positive - Further Testing Indicated Over the past two weeks, have you felt little interest or pleasure in doing things? Positive - Further Testing Indicated I have been able to laugh and see the funny side of things. As much as I always could I have looked forward with enjoyment to things. As much as I ever did I have blamed myself unnecessarily when things went wrong. Yes, most of the time I have been anxious or worried for no good reason. Yes, sometimes I have felt scared or panicky for no good reason. No, not at all Things have been getting on top of me. No, most of the time I have coped quite well I have been so unhappy that I have had difficulty sleeping. Not very often I have felt sad or miserable. Yes, quite often I have been so unhappy that I have been crying. Yes, quite often The thought of harming myself has occurred to me. Yes, quite often [place] Depression Scale Total 14 Feeling nervous, anxious or on edge 1-Several days Not being able to stop or control worrying 1-Several days Anxiety Pre-Screening Total (If >/= 3 additional questions will be reviewed) 2 GENETIC SCREENING: Partner present: Yes Patient verbalized knowledge of partner family health history: Yes Do you or your partner have any personal or family history of defects not previously discussed: Yes, Every Boy on FOB's side of the family has been born with a whole in their hearts- none of the boys need surgery for this (per patient). Do you have history of a complicated by anomaly, genetic condition, or demise: No Marital Status:Committed Relationship Partner: Name: Blas Renee Age: 24 Occupation: Not employed Gender: Male History of STDs: None PAST MEDICAL HISTORY Diagnosis Date Depression with anxiety Pilonidal cyst 2022 PAST SURGICAL HISTORY Procedure Laterality Date APPENDECTOMY patient was in 6th grade PAST SURGICAL HISTORY OF Left 04/07/2022 Benign Cyst Removal from [facility] No current outpatient medications on file. No current facility-administered medications for this visit. Allergies As of Date: 06/10/2023 Allergen Noted Reaction BACTRIM [SULFAMETHOXAZOLE-TRIMETH*2022 Vomiting Fully Assessed 06/10/2023 Does patient have penicillin allergy: No REVIEW OF SYSTEMS: GENERAL: Negative for: Fever or Chills and Positive for: Fatigue HEENT: Negative for: Impaired Vision, Ringing in Ears, Nosebleeds Headaches off and on NECK: Negative for: Swelling, Pain, Stiffness RESPIRATORY: Negative for: Cough, Shortness of breath, Wheezing GASTROINTESTINAL: Negative for: Heartburn, Constipation, Diarrhea, Blood in stool, Vomiting MUSCULOSKELETAL: Negative for: Muscle or joint pain, stiffness, Joint swelling NEUROLOGIC/PSYCHIATRIC: Negative for: Weakness, Paralysis, Numbness, Tingling, Tremor, Anxiety, Depression, Memory loss History of medications- months ago- antidepressants. Ex- cutter- last time months ago No hospitalizations Interested in counseling SKIN: Negative for: Rash, Itching GENITOURINARY: Negative for: vaginal itching, vaginal discharge, hematuria or dysuria PHYSICAL EXAM: BP 92/58 Ht 5' 3 (1.60m) Wt 142 lb (64.4kg) LMP 11/17/2022 BMI 25.16 kg/(m^2). GENERAL: pleasant in no apparent distress DERMATOLOGY: Normal and without lesions NECK: Supple, full range of motion, no adenopathy, and thyroid normal CHEST: Normal inspiratory effort BREAST: deferred ABDOMEN: soft, non-tender, and no masses NEURO: alert and oriented x3,exam grossly non-focal OB Risk Screening: Completed, no positive findings documented. ASSESSMENT/PLAN: 1. with care elsewhere, antepartum - ICD9: V22.1, ICD10: Z34.90 (primary diagnosis) 2. 29 weeks gestation of - ICD9: V22.2, ICD10: Z3A.29 3. Episode of recurrent major depressive disorder, unspecified depression episode severity (HCC) - ICD9: 296.30, ICD10: F33.9 4. Anxiety - ICD9: 300.00, ICD10: F41.9 5. History of self mutilation - ICD9: V11.8, ICD10: Z91.52 6. Marijuana use during - ICD9: 648.40, 305.20, ICD10: O99.320, F12.90 7. Vapes nicotine containing substance - ICD9: 305.1, ICD10: Z72.0 8. Suspected anomaly, antepartum, single or unspecified fetus - ICD9: 655.83, ICD10: O35.9XX0 9. Pilonidal abscess - ICD9: 685.0, ICD10: L05.01 - LARC form signed- declines - TDAP- declines - RH positive per records - URINE OB DIP B/O - CBC + DIFF - SYPHILIS TOTAL W/REFLEX - GEST GLUC SCREEN, 1-HR, 50 GM, NON-FASTING - TYPE + SCREEN - OBSTETRIC ULTRASOUND WHI - CONSULT TO WOMEN'S BEHAVIORAL HEALTH - CONSULT TO MATERNAL MEDI PLAN: 1) Patient oriented to practice. Discussed nutrition, folic acid supplementation, dietary guidelines, exercise, smoking, alcohol, caffeine, and drug use. Discussed gestational weight gain guidelines. Discussed how to access Your guide to a health and the Gsa Coordinator. Reviewed midwifery and packer services that are available. Follow up in 2 weeks or sooner prn. Merle Bone APRN.CNM documented in this encounter [facility] 06-10-2023 Instructions Merle Bone APRN.CNM - 06/10/2023 1:37 PM EDT Here are some links for wonderful Providers here in the community and surrounding areas. Do not hesitate to contact their offices, many are offering virtual visits during this time. 0-761-0-TZMG5GNMS - [facility] Maternal Mental Health Hotline If you are in suicidal crisis, please call or text [phone] ( ) or visit the National Suicide Prevention Lifeline website. [facility]b.[facility].gov [facility] Psychology, Psychiatry, Counseling Connect with therapist/ can do virtual visits [phone] Referral to the [facility] To schedule an appointment, please call the Center for Behavioral Health Appointment Line: [phone] option 1 [facility] [place], [place] [address] [place], [place] [id number] [address] [place], [place] [address] [facility] [address] [place], [place] [id number] [facility] [address] [place] [address] Sung Ruiz MD [address] [place] [address] [facility] [address] [place] [address], [address] [place] [address] [facility] [address] [place] [address] [facility] [place] / [place] [phone]/ [phone] Ksenia Gordillo [address] [facility] [phone] [facility] Counseling and Mediation [place] / [place] [phone] Behavioral [facility] services of [facility] [address] [place] [address]/ kennard and [place] [phone] Meena Alatorre, SALES REPRESENTATIVE WOMENS HEALTH, [facility] Workshops, telehealth and at home visits. [phone] [facility] counseling gordon 20 locations [facility], [place], [place], [place], [place], [place], [facility], [place], [place], [place], [place], [place], [place], [facility], [place], [place] ,[facility], [place], [place],[facility], [facility], [place], [facility], [facility], Jered www.[facility] [phone] Psychotherapy resources outside of [facility] are listed below [facility] Th[facility] Up Psychotherapy Web: https://www.Nano Pet Products/ Support International Online Provider Directory https://iSchool Campus/ [facility] https://Ohana Companies/ Partners for Behavioral Health and Wellness Web: https://LabPixies/ Center for Effective Living Web: https://www.effectiveBackflip Studiosliving.Kanga / LifeStance Web: https://Invictus Marketing.Kanga/location/ state/[place]/ [facility] Web: https://www.InStore Financehealthinc.o / [facility] Web: https://Pixelated.org/ Recovery Resources Mental health and substance abuse help Web: https://www.Boulder Wind Powers.org & RESOURCES Support International Direct peer support and connection to professional resources Non-Emergency Helpline Phone: / Text: [phone] Web: https://www..net/ Online Provider Directory: https://iSchool Campus/ Online Support Meetings: https://www..net/get-h elp/jcr-olfxbr-bjzbrej-meetings/ JOHN Baby and Client Technologies Specialist Services Web: https://wwwAuraSense Therapeutics/ MotherToBrickTrends Expert information on medication use during and Text: [phone] Web: https://upad/ NATIONAL REGISTRY FOR PSYCHIATRIC MEDICATIONS Currently studying the safety of antidepressants, ADHD medications and atypical antipsychotics taken during TO PARTICIPATE CALL TOLL-FREE: Web: https://womensmentalhealth.org/r esearch/pregnancyregistry/ Support Groups: [facility]- Follow on facebook Baby Bistro support group led by [facility] department [facility] - Support Group [facility].org The POEM support group [phone] Www.poemonline.org Follow on facebook - PODELISA solisochoa chapter Online support meetings PSI https://www..net/get-h elp/jym-whskol-dxrzgpd-meetings/ [facility] mommy and me virtual support group 11:30-1pm Support for mothers and new babies and toddlers [place] childbirth education: Childbirth @cc.org or call [phone] CRISIS: CRISIS HOTLINE [phone], 911 or go to the nearest . [facility] [phone] / [facility] [phone] https://www.[facility].org Crisis text line text the word HOME to 199906 [facility] [address] [place] [address] [facility] [address] wwwZoopla Bruna Senior clinical counseling [address] [facility] [address] [place] [address] www.KemPharm.Kanga [phone] Holding space psychotherapy Abeba Davis COVERED BUTTON MAKER [place] [employer] SYSTEM OPERATOR-S [address] [facility] www.Telnexus [phone]/ Hung [phone] They all offer virtual. All work with trauma Support groups Online support meetings PSI https://www..net/get-h elp/peg-ybpzjf-nsfoxgp-meetings/ Here are the support groups they offer: Support of parents of 1 to 4 years old children POEM ( Outreach and Encouragement for Moms) offers free support for mothers experiencing depression, anxiety, and other mood and anxiety disorders. Masks are recommended but not required. No pre-registration required. Babies in arms welcome. meetings now take place on the and Thursday of each month Location: [facility] [address] [place] [address] Room 122 (library room) 7-8:00 p.m. When you enter the [facility] parking lot off of [address] the entrance door closest to our meeting room is on the front of the building toward the right. For those who are more comfortable with a virtual platform, PO offers online support group options several days of the week. To register for an online group or to find out more about PO, website at: https://aolao.org/get-help/[facility] islandnjglf-atjyll-nzaopj/tamia-service s/ offer a confidential helpline: private Facebook group is called PODELISA - [facility] Here are the groups they offer: Traumatic childbirth resources: Http://pattch.org/ https://www.cyndyQFPay.Kanga/ Please select the following link to access the [facility] Your Guide to a Healthy . www.Ccf.org/healthypregnancyguid e documented in this encounter [facility] 06-09-2023 Miscellaneous Notes Left message to call office Left message for patient to return phone call. Patient is scheduled for NOB with Merle Najerakyle on Thursday and the telephone note states she is transferring care from [facility]. Please tell patient we need to have her records transferred here prior to NOB appointment documented in this encounter [facility] History and Physical Date of Admission: 04/07/22 Attending Physician: Dr. Reggie Le Referring physician: Juliano (Dr. Rouse) Diagnosis: left vulvar mass History of Present Illness: 17-year-old woman who presents for a left labial cyst. Per documentation this cystic area has been present for 2 years. Upon initial presentation to primary oil pipe inspector helper on patient was trialed on a course of Bactrim and brought back for follow up to assess for resolution. Patient at that time felt that it had decreased in size but it gets irritated and increases in size with physical activity. Exam at that time described the area as L labia majora with 4 cm area of swelling, overlying skin slightly erythematous, area reduces with pressure but does not track into groin or vaginal canal, reduces deep and unable to palpate surrounding branham of cyst . Patient could not tolerate Bactrim due to GI side effects. Upon seeing Dr. Le, ultrasound of the groin was ordered which showed a 4.2x1.4x2.3 cm homogeneous mass in the left labial region, favoring a complex cystic mass with debris. The patient denies fever, chills, chest pain, shortness of breath. No coughing or wheezing. No headaches or dizziness. No change in vision or hearing. No skin new skin rashes. No hot flashes. No easy bruising. Denies nausea/vomiting. No diarrhea or constipation. No rectal bleeding. No hematuria or dysuria. Appetite is intact. Energy level is good. Past Medical History: None Past Surgical History: Appendectomy Pan Devulcanizer Helper History: G0. Has never had a pap smear. Menarche started at age 9. No STD history. Family History: Patient has unknown family history of ovarian cancer, uterine cancer, colon cancer, pancreatic cancer. Per documentation, maternal grandmother has hx of breast cancer. Social History: Smoking: Former smoker Alcohol: Occasional use Drugs: Denies Medications: Medication List Active Medications Ordered ceFAZolin: 2 gram(s), 20 mL, 240 mL/hr, IV Push (INT), PREOP pharm. heparin: 5,000 unit(s), 1 mL, Subcutaneous, PREOP pharm. Lactated Ringers Infusion 1,000 mL: 20 mL/hr, Intravenous. lidocaine: 2.5 mg, 0.25 mL, Intradermal, prep pharm. Medications Inactivated in the Last 72 Hours No medications found. Allergies: Bactrim (Vomiting) Review of Systems: See HPI for pertinent positives. A full review of systems was conducted and found to be otherwise negative. Physical Examination: --- per documentation Vital Signs: pending General: Well appearing, in no acute distress. HEENT: No conjunctival cystitis. PERRLA. Normal hearing. Normal mucosa and thyroid. Lymphatic: No cervical, supraclavicular, or axillary lymphadenopathy. Breasts: Deferred. Cardiac: Regular rate and rhythm. Respiratory: Clear to auscultation bilaterally. Abdomen: Soft, non-tender, nondistended, no masses, no hernias, normal bowel sounds. Genitourinary: see office note Extremities: Warm. No cyanosis, clubbing, or edema. Musculoskeletal: Normal range of motion. Psychiatric: Normal affect and demeanor. Correlate physical exam findings with office notes. Labs: 03/10/22: 18.8>14.1/42.6<359, Na 137, K 4.7, Cr 0.64, AST/ALT 35/35 Diagnostic Imagin03/10/22 Groin ultrasound: Left groin/labial ULTRASOUND03/10/2022 4:06 pm COMPARISON: None HISTORY: ORDERING SYSTEM PROVIDED HISTORY: Reason for Exam: PLEASE EVALUATE LEFT LABIAL CYST FINDINGS: High-resolution ultrasound of the left labial mass shows a homogeneous mass of 4.2 x 1.4 x 2.3 cm just deep to the superficial soft tissue layer. This has low level internal echoes with no blood flow. No calcification. IMPRESSION: Homogeneous mass in the left labial region. This is favored to be a complex cystic mass with debris. 03/10/22 CXR: EXAMINATION: TWO XRAY VIEWS OF THE CHEST 03/10/2022 4:12 pm COMPARISON: None. HISTORY: ORDERING SYSTEM PROVIDED HISTORY: Reason for Exam: preprocedural respiratory examination. FINDINGS: The lungs are without acute focal process. There is no effusion or pneumothorax. The cardiomediastinal silhouette is without acute process. The osseous structures are without acute process. IMPRESSION: No acute process. Assessment and Plan: 17-year-old female with a left vulvar mass vs cyst. Patient is scheduled for exam under anesthesia, resection of left vulvar mass. All risks, benefits and alternatives were discussed with the patient. Risks include, but are not limited to, risk of bleeding to the point of transfusion, infection, injury to surrounding tissue, VTEs, ICU admission and . Patient aware and consented. Patient scheduled for surgery on 04/07/22. Note dictated on behalf of Dr. Le. Addendum by REGGIE LE on April 07, 2022 7:03 EDT Temperature Temporal Artery: 37.1 DegC A pical Heart Rate: 80 bpm Respiratory Rate: 16 br/min Systolic Blood Pressure: 102 mmHg Diastolic Blood Pressure: 74 mmHg Mean Arterial Pressure: 83 mmHg WBC: 18.8 10^3/mcL High (03/10/22 15:53:00) RBC: 4.5 10^6/mcL (03/10/22 15:53:00) Hgb: 14.1 G/dL (03/10/22 15:53:00) Hct: 42.6 % (03/10/22 15:53:00) MCV: 94.8 fL (03/10/22 15:53:00) MCH: 31.3 pg (03/10/22 15:53:00) MCHC: 33 G/dL (03/10/22 15:53:00) RDW: 13.5 % (03/10/22 15:53:00) Platelet: 359 10^3/mcL (03/10/22 15:53:00) MPV: 8.8 fL (03/10/22 15:53:00) Neutrophil %: 86.9 % High (03/10/22 15:53:00) Lymphocyte %: 7.8 % Low (03/10/22 15:53:00) Monocyte %: 4.7 % (03/10/22 15:53:00) Eosinophil %: 0.2 % (03/10/22 15:53:00) Basophil %: 0.4 % (03/10/22 15:53:00) Neutrophil, Absolute: 16.3 10^3/mcL High (03/10/22 15:53:00) Lymphocyte, Absolute: 1.5 10^3/mcL (03/10/22 15:53:00) Monocyte, Absolute: 0.9 10^3/mcL (03/10/22 15:53:00) Eosinophil, Absolute: 0 10^3/mcL (03/10/22 15:53:00) Basophil, Absolute: 0.1 10^3/mcL (03/10/22 15:53:00) Urine POC: Negative (04/07/22 05:43:00) Glucose Level: 85 mg/dL (03/10/22 15:53:00) Sodium Level: 137 mEq/L (03/10/22 15:53:00) Potassium Level: 4.7 mEq/L (03/10/22 15:53:00) Chloride: 104 mEq/L (03/10/22 15:53:00) CO2: 23 mEq/L (03/10/22 15:53:00) Electrolyte Balance: 10 mEq/L (03/10/22 15:53:00) BUN: 11 mg/dL (03/10/22 15:53:00) Creatinine Lvl (s): 0.64 mg/dL (03/10/22 15:53:00) BUN/Creatinine Ratio: 17.2 ratio (03/10/22 15:53:00) Calcium Lvl: 9.5 mg/dL (03/10/22 15:53:00) Total Protein: 7.8 G/dL (03/10/22 15:53:00) Albumin Level: 4 G/dL (03/10/22 15:53:00) Globulin: 3.8 G/dL (03/10/22 15:53:00) A/G Ratio: 1.1 ratio (03/10/22 15:53:00) Bili Total: 0.8 mg/dL (03/10/22 15:53:00) Alk Phos: 117 U/L (03/10/22 15:53:00) AST/SGOT: 35 U/L High (03/10/22 15:53:00) ALT/SGPT: 35 U/L (03/10/22 15:53:00) GFR Non-: >60 (03/10/22 15:53:00) GFR : >60 (03/10/22 15:53:00) ABO/Rh Interp: O POS (04/07/22 05:23:00) ABSC Interp (Gel): NEG ABSC Biorad (04/07/22 05:23:00) I personally saw and evaluated the patient on the day of surgery in the pre-operative holding area. I have reviewed the above documentation and clinical decision making and I agree. Vital signs and bloodwork were reviewed. Physical examination unchanged since the last time I saw her in the office. We reviewed the plan for the surgery, including the risks and indications for the procedure. All of her questions were answered. REGGIE LE MD FACOG Future Appointments Appointment Date:04/23/2022 01:00:00 PM Scheduled Provider:REGGIE LE MD Location:[facility] Appointment Type:SO OV Post Op [facility] 06-20-2022 Hospital Discharge instructions Patient Education 04/07/2022 09:28:49 8- Post Op [facility] Surgery (09/2020) (Custom) What to Do After Your Gynecology or Gynecology Oncology Surgery This sheet will give you general information on what to do when you are home after surgery. However, you should always follow any specific instructions given to you by your surgeon. Pain Medication Please follow the directions on the label of your medication and use your discharge medication listprovided by the hospital. Do not take this medication on an empty stomach. This may cause a stomachache. Use a stool softener or gentle laxative (milk of magnesia) if needed. Constipation is not uncommon while taking oral pain medication. Use less of any narcotic pain medication as soon as your pain allows. You may take svfq-kqk-sqovtrkopfr medication if you no longer need your prescribed pain medication. Ntwq-ibf-wyjrpcj pain medications are Tylenol (acetaminophen) or Advil (ibuprofen). Do not take Tylenol if you are still taking [place] or Percocet. They are the same type of medication. Too much acetaminophen can hurt your liver. Activity It is OK to use the stairs, but try to avoid them or take less trips right after surgery. After surgery, you may feel tired. Rest is important for healing. Slowly increase your activity level by walking and doing normal activities as you feel comfortable. Follow surgeon instructions on driving. You may not be able to drive for one to six weeks dependingon what surgery and incisions you have. Do not drive while taking narcotic pain medication. They should be out of your system for 24 hours. Diet Eating smaller meals instead of three large meals is good. This may help with your appetite and nutrition. Good nutrition will help you heal. Follow diet instructions that you were taught after surgery. Infection Prevention Washing your hands is one of the best ways to prevent infection. Always wash your hands before and after touching your incision or dressing. Hands carry germs that can cause infections. Try not to touch your incision. Keep the Incision Clean Wear clean, loose-fitting clothes to prevent clothes from rubbing on the incision. Put clean sheets on your bed when you get home. Do not let other people or animals touch the incision. Showering You may start to shower 24 hours after your surgery. Use a clean washcloth and towel on your incision before you use it on any other area of your body. Adjust the shower spray to gentle and use warm water. Gently wash over your incision using antibacterial soap and water and pat it dry. Do not rub the incision. Do not soak or submerge in the bathtub or hot tub until your surgeon says it is OK. Wound Care When you go home, you may leave your incision(s) open to the air. Your incision(s) may be closed with sutures or chasity. If incision is closed with sutures under the skin, you do not need to have these removed as they will dissolve on their own. If incision is closed with chasity, the chasity will need to be removed. If your incision is horizontal (sideways), they need to be removed within three to seven days. If your incision is vertical (up and down), they need to be removed within 10 14 days. If you have thin white tape strips (Steri-Strips) over your incision, keep them dry. Do not remove them unless they begin curling up at the sides and are almost falling off or have been in place for seven days. If your incision begins coming apart, has drainage (thick, foul smelling, white, yellow, green, pink or red) with redness around the incision and feels warm to touch, call your surgeon. You may have an infection. Vaginal Care You may have drainage after surgery. Normal colors are watery, brown-black discharge. Vaginal spotting and bleeding are normal. However, if you are soaking two pads in one hour, that isnot normal. Call your surgeon. No tampons or douching. NO SEXUAL INTERCOURSE FOR 6 WEEKS. Call Your Doctor If: Your pain is not controlled by pain medication. You have a fever of 100.4 degrees or higher. You have a lot of bleeding from the incision or a lot of vaginal bleeding (more than two pads per hour). You have bad stomach pain or you start throwing up. If you are unable to reach your doctor, go to the hospital. Follow Up If a follow-up appointment has not been made, please call your surgeon s office within a day. Let the office know if you have chasity and they will schedule them to be removed. Contact your surgeon for any specific problems or questions that you may have. 04/07/2022 09:28:49 -[facility] Discharge Instructions Template (07/2018) (Custom) [facility] SAME DAY SURGERY DISCHARGE INSTRUCTIONS PLEASE FOLLOW THE INSTRUCTIONS BELOW MARKED WITH AN X: _X__ Regular Diet: Start with clear liquids, then soup and crackers and gradually add other foods. ___ Drink extra fluids. ___ Special Diet Instructions: ___ ACTIVITY: _X__ Avoid stress to suture line. Since you have had an anesthetic, it would be advisable not to drive, drink alcohol, or make major decisions over the next 24 hours. You may require more rest tonight and tomorrow. ___ May resume regular activity as tolerated. ___ Restrict activity as follows: ___ ___ Walk Only ___ ___ Do not go up and down stairs. ___ Do not ride in car until ___ ___ Do not drive car. __X_ Do not have sexual intercourse. ___ No heavy lifting, pushing or straining. __X_ Other: _FOLLOW ALL INSTRUCTIONS FROM DR LE__ BATHING/SHOWERING: ___ Sponge bathe until office visit. ___ Sitting in tub of warm water may relieve discomfort. ___ May tub bathe __X_ May shower ___ On day after surgery sit in tub of warm water to soak off dressing. DRESSING: __X_ Keep operative area dry and clean for ___ ___ Check the operative area for signs of bleeding. Apply pressure to the bleeding site if necessary and call your physician. ___ Change dressing as necessary using sterile dressing material or bandaid. ___ Reinforce dressing as necessary. ___ Change and care for wound as follows: ___ ___ Wear bra for ___ days following breast surgery for comfort. ___ Change drip pad as needed. ___ Wear scrotal support for comfort. WATCH FOR SIGNS OF INFECTION: (Usually appears 36-48 hours after surgery) Increased temperature (101 degrees Fahrenheit or higher) Redness or swelling Increased pain Foul odor or drainage. If you have any questions, please call your doctor at the number listed on your follow up instructions. Follow all instructions given to you by your physician. Please complete and return the survey you will be receiving in the mail to help us better serve our patients. Form: [id number] ([id number]) R: 01/2504/07/2022 09:28:49 1- [facility] General Discharge Guidelines (07/2018) (Custom) General Outpatient Surgery or Procedure Discharge Information Sheet The following general post-operative or procedure guidelines provide helpful information to assist in your recovery. These are general guidelines. Any specific instructions provided by your surgeon should be followed. Diet Follow any your same dietary restrictions you have had in the past, unless otherwise instructed. Start with clear liquids and slowly increase to solids as you tolerate. Activity Slowly resume your previous activities as tolerated. If you have had sedation, do not drive a car, drink alcohol or make major decisions for 24 hours You may need extra rest as you recover from your surgery/procedure Bathing/showering Do not soak your incision or puncture site, if you have one. No tub baths until your surgeon gives permission. If you have narrow white strips (steri-strips) over the incision, keep them dry for 48 hours and then you may shower. Otherwise, you may shower beginning tomorrow. Dressing/wound care Change your dressing as necessary using a sterile dressing material or band aid If you have a gauze dressing or band aid over the incision, you may remove it 48 hours after the surgery. Do not remove steri-strips unless they begin curling up at the sides and are almost falling off. If you have chasity or sutures, they are generally removed within 7-14 days at your post procedure appointment. Hand washing Frequent hand washing is one of the best ways to prevent the spread of infection. Always wash your hands before and after touching your incision or dressing. Pain Please follow your surgeon s instruction for pain control. If you are not given specific instructions or prescription for pain control, you may take your usual over the counter medication to control discomfort, such as Tylenol (acetaminophen) or Advil (ibuprofen). Do not take aspirin or products containing aspirin. Check the medication ingredients if you are unsure. Call your doctor if: Your temperature is 101 F or higher. It is not uncommon to have a low-grade fever after surgery. You have new redness, swelling or drainage around the incision. Severe bleeding occurs (apply direct pressure to the area if this happens). Severe pain or vomiting. If you are unable to reach your doctor, go to the Emergency Department. Follow-up If a follow-up appointment has not been made, please call your surgeon s office. Most appointments are 10-14 days following surgery. If you have any problems or concerns before then, do not hesitate to call the surgeon s office. Document Released: 10/05/2006 Document Revised: 09/21/2013 Document Reviewed: 10/06/2014 ExitCare Patient Information 2015 [facility], [facility]. This information is not intended to replace advicegiven to you by your health care provider. Make sure you discuss any questions you have with your health care provider. Follow Up Care 03/05/2022 14:24:24 With:REGGIE LE MD Address: [address] [place] [address] [place] [address] [phone] When:04/21/2022 Comments:Follow-up as scheduled With:REGGIE LE MD Address: [address] [place] [address] [place] [address] [phone] When: Unknown Comments:Follow-up with Dr. Le in the office on April 23, 2022 at 1:00 PM. Postoperative visit. [facility] Evaluation + Plan note Future Appointments Appointment Date:03/10/2022 04:00:00 PM Scheduled Provider: Location:[facility] Appointment Type:US Groin Left Appointment Date:04/23/2022 01:00:00 PM Scheduled Provider:REGGIE LE MD Location:[facility] Appointment Type:SO OV Post Op Future Scheduled Tests Radiology* US Groin Left 03/10/22 [facility] Evaluation + Plan note Future Appointments Appointment Date:05/23/2022 01:20:00 PM Scheduled Provider:DANYN LLANOS Location:[facility] Appointment Type:SO OV Post Op [facility] evaluation noteNo assessment information available Stanley OrionVM [employer] [facility] Work Phone: evaluation note* Diagnosis with care elsewhere, antepartum- Primary 29 weeks gestation of state, incidental Episode of recurrent major depressive disorder, unspecified depression episode severity (HCC) Anxiety Anxiety state, unspecified History of self mutilation Personal history of other mental disorder Marijuana use during Vapes nicotine containing substance Suspected anomaly, antepartum, single or unspecified fetus Pilonidal abscess Pilonidal cyst with abscess documented in this encounter [facility] note* Diagnosis abnormality in antepartum , single or unspecified fetus- Primary with care elsewhere, antepartum Marijuana use during Vapes nicotine containing substance documented in this encounter [facility] note* Diagnosis with care elsewhere, antepartum- Primary Suspected anomaly, antepartum, single or unspecified fetus documented in this encounter [facility] note* Diagnosis Encounter for supervision of normal first in third trimester- Primary Supervision of normal first 34 weeks gestation of state, incidental Hemorrhoids, unspecified hemorrhoid type Cyst of Bartholin's gland documented in this encounter [facility] note* Diagnosis Pyelectasis of fetus on ultrasound- Primary Abnormal findings on screening with care elsewhere, antepartum Marijuana use during Vapes nicotine containing substance abnormality in antepartum , single or unspecified fetus 36 weeks gestation of state, incidental documented in this encounter [facility] note* Diagnosis Encounter for supervision of normal first in third trimester- Primary Supervision of normal first 37 weeks gestation of state, incidental Elevated blood pressure reading without diagnosis of hypertension documented in this encounter [facility] note* Diagnosis 38 weeks gestation of - Primary state, incidental Encounter for supervision of normal first in third trimester Supervision of normal first GBS bacteriuria Vapes nicotine containing substance Marijuana use during documented in this encounter [facility] note* Diagnosis Encounter for initial prescription of contraceptive pills- Primary General counseling for prescription of oral contraceptives care and examination Routine follow-up Previous section Other postprocedural status Encounter for screening for maternal depression documented in this encounter [facility] note* Diagnosis Episode of recurrent major depressive disorder, unspecified depression episode severity (HCC)- Primary Tachycardia Tachycardia, unspecified Tiredness Other malaise and fatigue Anxiety Anxiety state, unspecified Vapes nicotine containing substance History of self mutilation Personal history of other mental disorder Anemia complicating , third trimester documented in this encounter [facility] note* Diagnosis care and examination- Primary Routine follow-up documented in this encounter [facility] note* Diagnosis Major depressive disorder, single episode, mild with peripartum onset (HCC)- Primary documented in this encounter [facility] course Narrative No data available for this section [facility] Hospital Discharge instructions No data available for this section [facility] Progress note No data available for this section [facility] Reason for referral (narrative)* Diagnostic Procedure Only (Routine) - Authorized Specialty Diagnoses / Procedures Referred By Contac t Referred To Contact [facility] Diagnoses with care elsewhere, antepartum Marijuana use during Vapes nicotine containing substance abnormality in antepartum , single or unspecified fetus Procedures OBSTETRIC ULTRASOUND WHI US PREG UTERUS AFTER 1ST TRIMEST 1/ GESTATION Merle Bone APRN.ALLAN [address] [place] [address] [address] Referral ID Status Reason Start Date Expiration Date Visits Requested Visits Authorized [id number] Authorized Auto-Generat ed Referral 07/02/2023 06/25/2024 1 1 [facility] for referral (narrative)* Diagnostic Procedure Only (Routine) - Pending Review Specialty Diagnoses / Procedures Referred By Contac t Referred To Contact [facility] Diagnoses with care elsewhere, antepartum Suspected anomaly, antepartum, single or unspecified fetus Procedures OBSTETRIC ULTRASOUND WHI US PREG UTERUS AFTER 1ST TRIMEST GESTATION Merle Bone APRN.CNM [address] [place] [address] [address] Referral ID Status Reason Start Date Expiration Date Visits Requested Visits Authorized [id number] Pending Review Auto-Generat ed Referral 07/03/2023 06/24/2024 1 1 [facility] for referral (narrative)* Outpatient Procedure (Routine) - Pending Review Specialty Diagnoses / Procedures Referred By Contac t Referred To Contact [facility] [place] Diagnoses Tachycardia Procedures ECG COMPLETE ECG ROUTINE ECG W/LEAST 12 LDS W/I&R Waldo Garrett DO [address] [address] Referral ID Status Reason Start Date Expiration Date Visits Requested Visits Authorized [id number] Pending Review Auto-Generat ed Referral 09/13/2024 1 1 [facility] Summary Purpose Family History No Family History Records FoundNo Family History Records FoundNo Family History Records FoundNo Family History Records FoundNo Family History Records FoundNo Family History Records FoundNo Family History Records Found Advance Directives No Advanced Directives Records Found Advance Directive Response Recorded Date/ Time Advanced Directive: N July 24, 2022 11:37am [place] D[place] Comfort Care Directives: N July 24, 2022 11:37am Organ Donation Card: N July 11:37am Advance Directive Response Recorded Date/ Time Advanced Directive: N August 9:56am [place] D[place] Comfort Care Directives: N September 07, 2022 9:56am Organ Donation Card: Y September 072021 9:56am Advance Directive Response Recorded Date/ Time Advanced Directive: N November 11:47am [place] D[place] Comfort Care Directives: N November 27, 2022 11:47am Organ Donation Card: N November 11:47am Advance Directive Response Recorded Date/ Time Advanced Directive: N May 14, 2:52am [place] DNR Comfort Care Directives: N May 14, 2023 2:52am Organ Donation Card: Y May 14, 2023 2:52am Chief Complaint and Reason for Visit Reason for Visit CYST GETTING WORSE 6 MONTHS PREG WAS SEEN AT EXPRE [facility]ILB[facility] OPENING? AND PAIN Reason for Visit ABD.PAIN,DIARRHEA,N& V SORE THROAT;CONGESTION;EARS ARE PLUGGED Reason for Visit RASH TO CHIN, REDNES S & DRAINAGE Reason for Referral Specialty Diagnoses / Procedures Referred By Floyd fuentes Referred To Contact Diagnoses with care elsewhere, antepartum 29 weeks gestation of Episode of recurrent major depressive disorder, unspecified depression episode severity (HCC) Anxiety History of self mutilation Marijuana use during Vapes nicotine containing substance Suspected anomaly, antepartum, single or unspecified fetus Procedures CONSULT TO MATERNAL MEDI OFFICE/OUTPATIENT PENDING SALE TO [facility] MDM 60-74 MINUTES Merle Bone APRN.CNM [address] [place] [address] Referral ID Status Reason Start Date Expiration Date Visits Requested Visits Authorized [id number] Authorized PCP Requested Referral Auto-Generate d Referral 06/10/2023 06/09/2024 1 1 Specialty Diagnoses / Procedures Referred By Floyd fuentes Referred To Contact [facility] Diagnoses with care elsewhere, antepartum 29 weeks gestation of Procedures OBSTETRIC ULTRASOUND WHI US PREG UTERUS AFTER 1ST TRIMEST GESTATION Merle Bone APRN.CNM [address] [place] [address] [place] [address] [place] [address] Referral ID Status Reason Start Date Expiration Date Visits Requested Visits Authorized [id number] Authorized Auto-Generat ed Referral 06/10/2023 06/09/2024 1 1 Additional Source Comments Care Team (unrecognized sect ion and content) Team Status: Active Member Role Status Dates Amanda Pleitez NP primary care physician Active Start: November 27, 2022 Edward Ibrahim MD EMERGENCY Active Start: 2022 Amanda Pleitez NP FAMILY Active Start: 2022 ASHLY LOUIS Next of Kin Active Start: November 27, 2022 JEWELL LOUIS Guarantor Active Start: 2022 Team Status: Active Member Role Status Dates Amanda Pleitez NP primary care physician Active Start: May 14, 2023 Rory Pappas DO EMERGENCY Active S tart: May 14, 2023 Amanda Pleitez NP FAMILY Active Start: 2022 ASHLY LOUIS Next of Kin Active Start: April JEWELL LOUIS Guarantor Active Start: April 192022 Manager Of Employee Relations Relationship Specialty Start Date End Date Waldo Garrett DO 1 [place] [address] PCP - General Internal Medicine 09/14/23 Balijt Harvey MD [address] [place] [id number] PCP Resident 09/14/23 Manager Of Employee Relations Relationship Specialty Start Date End Date Waldo Garrett DO [address] [id number] PCP - General Internal Medicine 09/14/23 Baljit Harvey MD [address] [place] [id number] PCP Resident 09/14/23 Manager Of Employee Relations Relationship Specialty Start Date End Date Waldo Garertt DO 1 [facility] [address] [place], [place] [id number] PCP - General Internal Medicine 09/14/23 Baljit Harvey MD 1 [place], [place] [id number] PCP Resident 09/14/23 Manager Of Employee Relations Relationship Specialty Start Date End Date Waldo Garrett DO 1 [facility] [address] [place], [place] [id number] PCP - General Internal Medicine 09/14/23 Baljit Harvey MD 1 [place], [place] [id number] PCP Resident 09/14/23 Care Team (unrecognized sect ion and content) Care Team Personnel Name: GRACE MEEK MUTUEL DEPARTMENT MANAGER Member Role: Primary Care Physician Address: Address: [address] [place] [address]- [place] Name: REGGIE LE MD Position: P4 Oncology Provider Med Service: [facility] DRIVER-ONC Infusion Therapy Member Role: Gynecologic Oncologist Address: Address: [address] [place] [address] [place] [address] Care Team Related Persons Name: RAUL LOUIS Name: QUINCY, INFORMATION SOURCE (unrecogn ized section and content) DATE CREATED AUTHOR AUTHOR'S ORGANIZ ATION 03/28/2023 [facility] DATE CREATED AUTHOR AUTHOR'S ORGANIZ ATION 05/28/2023 [facility] DATE CREATED AUTHOR AUTHOR'S ORGANIZ ATION 06/15/2023 [facility] DATE CREATED AUTHOR AUTHOR'S ORGANIZ ATION 07/10/2023 [facility] DATE CREATED AUTHOR AUTHOR'S ORGANIZ ATION 09/19/2023 [facility] DATE CREATED AUTHOR AUTHOR'S ORGANIZ ATION 12/06/2023 [facility] [place] Goals (unrecognized section and content) Goals may be documented in a n alternate section Source Comments (unrecognize d section and content) In the event this informatio n is protected by the Federal Confidentiality of Alcohol and Drug Abuse Patient Records regulations: The Federal rules restrict any use of the information to criminally investigate or prosecute any alcohol or drug abuse patient.[facility] the event this information is protected by the Federal Confidentiality of Alcohol and Drug Abuse Patient Records regulations: The Federal rules restrict any use of the information to criminally investigate or prosecute any alcohol or drug abuse patient.[facility] Hospital[facility] the event this information is protected by the Federal Confidentiality of Alcohol and Drug Abuse Patient Records regulations: The Federal rules restrict any use of the information to criminally investigate or prosecute any alcohol or drug abuse patient.[facility] Hospital[facility] the event this information is protected by the Federal Confidentiality of Alcohol and Drug Abuse Patient Records regulations: The Federal rules restrict any use of the information to criminally investigate or prosecute any alcohol or drug abuse patient.[facility] Hospital[facility] the event this information is protected by the Federal Confidentiality of Alcohol and Drug Abuse Patient Records regulations: The Federal rules restrict any use of the information to criminally investigate or prosecute any alcohol or drug abuse patient.[facility] Hospital[facility] the event this information is protected by the Federal Confidentiality of Alcohol and Drug Abuse Patient Records regulations: The Federal rules restrict any use of the information to criminally investigate or prosecute any alcohol or drug abuse patient.[facility] HospitalIn the event this information is protected by the Federal Confidentiality of Alcohol and Drug Abuse Patient Records regulations: The Federal rules restrict any use of the information to criminally investigate or prosecute any alcohol or drug abuse patient.[facility] HospitalIn the event this information is protected by the Federal Confidentiality of Alcohol and Drug Abuse Patient Records regulations: The Federal rules restrict any use of the information to criminally investigate or prosecute any alcohol or drug abuse patient.[facility] HospitalIn the event this information is protected by the Federal Confidentiality of Alcohol and Drug Abuse Patient Records regulations: The Federal rules restrict any use of the information to criminally investigate or prosecute any alcohol or drug abuse patient.[facility] HospitalIn the event this information is protected by the Federal Confidentiality of Alcohol and Drug Abuse Patient Records regulations: The Federal rules restrict any use of the information to criminally investigate or prosecute any alcohol or drug abuse patient.[facility] HospitalIn the event this information is protected by the Federal Confidentiality of Alcohol and Drug Abuse Patient Records regulations: The Federal rules restrict any use of the information to criminally investigate or prosecute any alcohol or drug abuse patient.[facility] HospitalIn the event this information is protected by the Federal Confidentiality of Alcohol and Drug Abuse Patient Records regulations: The Federal rules restrict any use of the information to criminally investigate or prosecute any alcohol or drug abuse patient.[facility] HospitalIn the event this information is protected by the Federal Confidentiality of Alcohol and Drug Abuse Patient Records regulations: The Federal rules restrict any use of the information to criminally investigate or prosecute any alcohol or drug abuse patient.[facility] HospitalIn the event this information is protected by the Federal Confidentiality of Alcohol and Drug Abuse Patient Records regulations: The Federal rules restrict any use of the information to criminally investigate or prosecute any alcohol or drug abuse patient.[facility] HospitalIn the event this information is protected by the Federal Confidentiality of Alcohol and Drug Abuse Patient Records regulations: The Federal rules restrict any use of the information to criminally investigate or prosecute any alcohol or drug abuse patient.[facility] HospitalIn the event this information is protected by the Federal Confidentiality of Alcohol and Drug Abuse Patient Records regulations: The Federal rules restrict any use of the information to criminally investigate or prosecute any alcohol or drug abuse patient.[facility] HospitalIn the event this information is protected by the Federal Confidentiality of Alcohol and Drug Abuse Patient Records regulations: The Federal rules restrict any use of the information to criminally investigate or prosecute any alcohol or drug abuse patient.[facility] HospitalIn the event this information is protected by the Federal Confidentiality of Alcohol and Drug Abuse Patient Records regulations: The Federal rules restrict any use of the information to criminally investigate or prosecute any alcohol or drug abuse patient.[facility] HospitalIn the event this information is protected by the Federal Confidentiality of Alcohol and Drug Abuse Patient Records regulations: The Federal rules restrict any use of the information to criminally investigate or prosecute any alcohol or drug abuse patient.[facility] HospitalIn the event this information is protected by the Federal Confidentiality of Alcohol and Drug Abuse Patient Records regulations: The Federal rules restrict any use of the information to criminally investigate or prosecute any alcohol or drug abuse patient.[facility] HospitalIn the event this information is protected by the Federal Confidentiality of Alcohol and Drug Abuse Patient Records regulations: The Federal rules restrict any use of the information to criminally investigate or prosecute any alcohol or drug abuse patient.[facility] HospitalIn the event this information is protected by the Federal Confidentiality of Alcohol and Drug Abuse Patient Records regulations: The Federal rules restrict any use of the information to criminally investigate or prosecute any alcohol or drug abuse patient.[facility] HospitalIn the event this information is protected by the Federal Confidentiality of Alcohol and Drug Abuse Patient Records regulations: The Federal rules restrict any use of the information to criminally investigate or prosecute any alcohol or drug abuse patient.[facility] HospitalIn the event this information is protected by the Federal Confidentiality of Alcohol and Drug Abuse Patient Records regulations: The Federal rules restrict any use of the information to criminally investigate or prosecute any alcohol or drug abuse patient.[facility] Reason for Visit (unrecogniz ed section and content) Reason Comments Initial OB Visit Reason Comments Appointment Reason Comments Orders Reason Comments Patient Update Reason Comments Information Reason Comments Results Reason Onset Date Comments Care Care 07/13/2023 Reason Comments PRAF Reason Comments US Specialty Diagnoses / Procedures Referred By Contac t Referred To Contact [facility] Diagnoses with care elsewhere, antepartum Marijuana use during Vapes nicotine containing substance abnormality in antepartum , single or unspecified fetus Procedures OBSTETRIC ULTRASOUND WHI US PREG UTERUS AFTER 1ST TRIMEST GESTATION Merle Bone APRN.[facility] [address] [place] [address] [facility] [address] [place] [address] Referral ID Status Reason Start Date Expiration Date V isits Requested Visits Authorized [id number] Closed Auto-Generate d Referral 07/02/2023 06/25/2024 1 1 Reason Onset Date Comments Care 08/05/2023 Reason Onset Date Comments Population Health Navigation Outreach 08/11/2023 Peds/OB Reason Onset Date Comments Care 08/12/2023 Reason Comments Ob Delivery Note Reason Comments Blood management Reason Comments Early Reason Comments Establish Care Post Reason Comments Routine Reason Comments Establish Care Med Management FOR RECORDS PERTAINING TO PATIENTS WHO ARE OR HAVE BEEN ENROLLED IN A CHEMICAL DEPENDENCY/SUBSTANCEABUSE PROGRAM, SOME INFORMATION MAY BE OMITTED. This clinical summary was aggregated from multiple sources. Caution should be exercised in using it in the provision of clinical care. This summary normalizes information from multiple sources, and as a consequence, information in this document may materially change the coding, format and clinical context of patient data. In addition, data may be omitted in some cases. CLINICAL DECISIONS SHOULD BE BASED ON THE PRIMARY CLINICAL RECORDS. [facility]. provides no warranty or guarantee of the accuracy or completeness of information in this document.
[2023-12-15] MEDS: AMOXICILLIN 500 MG CAPSULE PO (08:44)
[2023-12-15 08:48] VITALS: BP 118/62; PULSE 82; RESP 16; TEMP 36.8; O2SAT 99
== END 2023-12-15 08:49 | disposition home or self-care (01) ==
PROVIDERS: Emergency Provider Emergency Medicine; PCP Internal Medicine; Visit Provider Emergency Medicine
DX: J02.0 Streptococcal pharyngitis (principal); F17.200 Nicotine dependence, unspecified, uncomplicated; F12.90 Cannabis use, unspecified, uncomplicated
CPT/HCPCS: 87631; 87651; 99282

== ENCOUNTER 2023-12-22 13:03 | Emergency (ER) | payer MEDICAID, SELFPAY ==
[2023-12-22 13:04] VITALS: BP 121/81; PULSE 125; RESP 16; TEMP 36.6; O2SAT 95; BMI 24.1
[2023-12-22 14:12] LABS: Absolute Lymphocyte Count 1.17 X10^3/uL (0.83-4.51); Absolute Neutrophil Count 8.9 X10^3/uL (2.0-7.7); Basophil# 0.06 X10^3/uL; Basophil% 0.6 % (0-1); Eosinophil# 0.02 X10^3/uL; Eosinophils% 0.2 % (0-5); Hematocrit 39.5 % (37-47); Hemoglobin 12.9 g/dL (12.0-15.0); Lymphocyte # 1.17 X10^3/ul (0.83-4.51); Lymphocyte % 10.8 % (19-41); Mean Corp Hgb Conc 32.7 g/dL (32-36); Mean Corpuscular Hgb 27.7 pg (27.0-32.0); Mean Corpuscular Volume 84.9 fL (81-99); Mean Platelet Vol. 9.6 fl (6.2-12.0); Monocyte# 0.74 X10^3/uL; Monocyte% 6.8 % (0-10); NRBC Flagged by Analyzer 0 % (0-5); Neutrophil # 8.85 X10^3/uL (2.7-7.7); Neutrophil % 81.2 % (47-70); Platelet Count 394 K/mm3 (150-450); RBC Distribution Width CV 14.6 % (11.6-14.6); Red Blood Count 4.65 M/mm3 (4.2-5.4); White Blood Count 10.9 K/mm3 (4.4-11.0)
--- NOTE | 2023-12-22 14:18 | EDS_ITS ---
HPI HPI - GI History of Present Illness Chief Complaint: Nausea/Vomiting/Diarrhea Informant: patient Nausea/Vomiting/Emesis GI Symptom: Positive for Nausea and Vomiting Onset: Today and Yesterday Quality: Negative for Blood streaks, Coffee ground or Hematemesis Severity: Mild Diarrhea/Melena/Hematochezia GI Symptom: Positive for Diarrhea and Hematochezia; Negative for Melena Onset: Today and Yesterday Stool Quality: Positive for Watery Severity: Moderate Associated Symptoms Associated Symptoms: Negative for Dysuria, Frequency, Hematuria or Urgency Narrative Narrative: 18-year-old female past medical history of anemia no prior blood transfusions. Prior appendectomy. Patient states that she started having diarrhea yesterday afternoon around 2. Diarrhea then turned in the bright red blood. No prior history of GI bleeding. Is also had some nausea and vomiting but no hematemesis. No fever. Since had similar symptoms today. Her boyfriend recently had nausea vomiting and diarrhea but he did not have any blood. She is on no blood thinners. Has not been on any recent antibiotics. No recent out of the country travel. Prior similar symptoms: No Recent Illness/Hospitalization: No PFSH PFSH Medical History Anorexia Depression Headache PTSD (post-traumatic stress disorder) Vaginal cyst Home Medications amoxicillin 500 mg tablet 500 mg PO TID #30 tabs 12/15/23 [Rx Last Taken Unknown] ondansetron 4 mg disintegrating tablet 4 mg PO Q6H PRN nausea and vomiting #10 tabs 12/22/23 [Rx Last Taken Unknown] Allergy/AdvReac Type Severity Reaction Status Date / Time sulfamethoxazole AdvReac Mild Vomiting Verified 12/22/23 13:06 [From Bactrim] trimethoprim [From Bactrim] AdvReac Mild Vomiting Verified 12/22/23 13:06 Surgical History History of appendectomy Social History household members: significant other Smoking Status: Heavy Smoker (>10/day) alcohol intake: former substance use type: former substance user Date of last use: Marijuana ROS ROS ED ROS Narrative Nausea, vomiting, diarrhea and hematochezia. Review of Systems ROS Unobtainable: Denies due to encephalopathy Constitutional Constitutional ED: Denies chills or fever(s) ENT ENT ED: Denies ear pain Cardiovascular Cardiovascular: Denies chest pain Respiratory/Chest Respiratory/Chest: Denies cough Gastrointestinal Gastrointestinal: Reports diarrhea, vomiting and other Details: Bright red blood per rectum. ; Denies abdominal pain, constipation or melena Genitourinary Genitourinary ED: Denies dysuria or hematuria Musculoskeletal Musculoskeletal: Denies arthralgias, back pain, myalgias or neck pain Integumentary Denies abscess, Abrasions or rash Neurologic Neurologic: Denies headache(s), paresthesias or weakness Psychiatric Psychiatric: Denies anxiety or depression Endocrine Endocrinology: Denies polydipsia, polyphagia or polyuria Hematologic/Lymphatic Hematologic/Lymphatic: Denies easy bleeding, easy bruising or lymphadenopathy Allergic/Immunologic Allergic/Immunologic ED: Denies mouth swelling, tongue swelling or urticaria EXAM Physical Exam Narrative Exam Narrative: 18-year-old female vital signs are stable. HEENT exam mild dry mucous membranes. Neck nontender no lymphadenopathy. Lungs clear to auscultation. Heart tachycardic rate of 120 no murmur. Chest wall and ribs nontender. Abdomen soft nontender. Nondistended normal bowel sounds no peritoneal signs. No right upper or lower quadrant tenderness. No hernia or mass nor any obstruction. Moving all 4 extremities. Normal strength. Back nontender. Skin unremarkable. Neurologically she is awake and alert no focal motor deficits. There is no bruising. No petechiae. Const Vital Signs: 12/22/23 13:04 Temperature 98 F Temperature Source Oral Pulse Rate 125 H Respiratory Rate 16 Blood Pressure 121/81 H Blood Pressure Mean 94 Pulse Ox 95 Oxygen Delivery Method Room Air Positive well nourished and well developed; Negative for cachectic, contractures or unkempt General Appearance ED: well developed and NAD; Negative for unkempt, cachectic, contractures or pallor Nutritional Appearance: Negative for cachectic HEENT Reports dry mucous membranes normocephalic and atraumatic; Negative for trauma or tenderness Mouth ED: Yes dry mucous membranes Mouth: dry mucous membranes Eyes PERRL and EOMs intact bilaterally General Eye ED: Negative for pale conjunctiva, scleral icterus or other Neck no lymphadenopathy, supple and no JVD General: Negative for tenderness Carotids: Negative for other Lymph Lymphatic: Negative for other Resp normal respiratory effort and clear to auscultation bilaterally Effort and Inspection: Negative for respiratory distress Auscultation: Negative for rales, rhonchi or wheezes Cardio regular rhythm, S1 normal heart sound, S2 normal heart sound and no murmurs; N egative for regular rate Rate: tachycardic; Negative for bradycardia Rhythm: Negative for abnormal rhythm GI non-tender, non-distended and no masses Inspection: Negative for abdominal distention Auscultation: normoactive bowel sounds Palpation: soft; Negative for tender, guarding or rebound tenderness present Back/Spine no CVA tenderness General Back: Negative for CVA tenderness Cervical Spine: Negative for cervical spine tenderness Thoracic Spine / Upper Back: Negative for thoracic spinal tenderness Lumbar Spine / Lower Back: Negative for lumbar spinal tenderness Coccyx: Negative for other Extremity full ROM General Extremety ED: Negative for edema or tenderness General Extremity: Negative for edema Neuro CN's II-XII intact bilaterally and moves all extremities Sensorium / Orientation: alert, oriented to person, oriented to place and oriented to time; Negative for orientation impaired, confused, lethargic or stuporous Motor Exam: strength 5/5 throughout; Negative for general weakness or strength abnormal Psych mental status grossly normal and thought process normal Appearance: Negative for unkempt Attitude: No agitated Mood & Affect: Negative for depressed, anxious or tearful Skin no wounds General Skin Exam: Negative for jaundice or pallor Lesions: no lesions Rashes: no rashes Trauma: Negative for abrasion Nails: Negative for discolored MDM MDM MDM Narrative Medical decision making narrative: 18-year-old female with nausea vomiting diarrhea and now bright red blood per rectum. Screening labs. I do not that she needs any imaging because her abdomen is benign. IV fluids and IV Zofran for dehydration and nausea. Differential would include viral syndrome versus bacterial etiology versus inflammatory bowel disease or other. Repeat exam patient doing well at 5:15 PM. Abdomen is benign. She has had no further bloody bowel movements while here. Clinically Yesenia is a viral syndrome. Similar symptoms as her boyfriend except she had some bright red blood per rectum. Should her blood count is actually better than she normally runs with hemoglobin 12.9. I do not think she needs to be admitted. She will be discharged home with outpatient follow-up with her physician in [place]. She will be off for the next 2 days. And Zofran for nausea. History & Record Review Discussion w/independent historian: Patient Additional record(s) reviewed:: Prior inpatient record, Prior outpatient record, Prior ED visit and Prior labs Lab Data Attestation: I reviewed the patient's lab results. Lab results narrative: CBC shows white count 10.9 H&H 12.9 and 39 which is actually much better than her normal hemoglobin which runs around 8. Platelets 394. Chemistries show a gap of 7. Normal BUN and creatinine 12 and 0.6. Liver enzymes normal. Lipase normal at 16. Serum test negative. Urinalysis is contaminated. Positive ketones. Positive occult blood. Negative nitrates. Negative white cells. 10-25 red cells and 2+ bacteria. 10-25 epithelial cells. Labs: Laboratory Results - last 24 hr 12/22/23 12/22/23 14:05 14:40 WBC 10.9 RBC 4.65 Hgb 12.9 Hct 39.5 MCV 84.9 MCH 27.7 MCHC 32.7 RDW Std Deviation 45.0 H RDW Coeff of Anthony 14.6 Plt Count 394 MPV 9.6 Immature Gran % (Auto) 0.400 Neut % (Auto) 81.2 H Lymph % (Auto) 10.8 L [place] % (Auto) 6.8 Eos % (Auto) 0.2 Baso % (Auto) 0.6 Absolute Neuts (auto) 8.9 H Absolute Lymphs (auto) 1.17 Nucleated RBC % 0 Sodium 138 Potassium 3.7 Chloride 103 Carbon Dioxide 28.0 Anion Gap 7 BUN 12 Creatinine 0.68 Estim Creat Clear Calc 109.17 Est GFR (MDRD) Af Amer 141 Est GFR (MDRD) Non-Af 117 BUN/Creatinine Ratio 17.7 Glucose 92 Calcium 8.8 Total Bilirubin 0.60 AST 15 ALT 21 Alkaline Phosphatase 109 Total Protein 7.7 Albumin 3.3 Globulin 4.4 H Albumin/Globulin Ratio 0.8 L Lipase 16 Serum , Qual NEGATIVE Urine Color Yellow Urine Clarity Sl. Cloudy Urine pH 6.0 Ur [place] 1.025 Urine Protein 30 H Urine Glucose (UA) Normal Urine Ketones 150 A* Urine Occult Blood 250 H Urine Nitrite Negative Urine Bilirubin 1 H Urine Urobilinogen 1 H Ur Leukocyte Esterase Negative Urine RBC 10-25 SEEN Urine WBC 0 SEEN Ur Squamous Epith Cells 10-25 SEEN Urine Bacteria 2+ Urine Mucus 0 SEEN Discharge Plan Triage Chief Complaint: Nausea/Vomiting/Diarrhea ED Provider: Geovanny Cruz Dx/Rx/DC Orders Clinical Impression: Viral gastroenteritis, Bright red rectal bleeding Instructions: ED Lower GI Bleeding (Stable), ED Gastroenteritis, Viral (Adult) Prescriptions: New ondansetron 4 mg tablet,disintegrating 4 mg PO Q6H PRN (Reason: nausea and vomiting) Qty: 10 0RF No Action amoxicillin 500 mg tablet 500 mg PO TID Qty: 30 0RF Primary Care Provider: Zach Good Referrals: Zach Good DO [Primary Care Provider] - 3-5 Days Activity Restrictions/Additional Instructions: Plenty of fluids and rest to prevent dehydration. Off work today and tomorrow. Zofran as needed for nausea. Follow-up with your doctor to ensure you are improving. I suspect this is a viral gastroenteritis. However that does not explain the rectal bleeding. It may be from irritation to your bowel from all the diarrhea. If you have a lot heavier bleeding or feeling a lot worse return here otherwise outpatient follow- up. Disposition Disposition: Home, Self Care
[2023-12-22 14:25] LABS: Internal QC Validated? YES +Cl - CLEAR BKGD; Pregnancy, Serum, hCG Quali. NEGATIVE Negative
[2023-12-22] MEDS: 0.9% Normal Saline (1000mL) 1,000 ML 1000 ML IV (14:28)
[2023-12-22] MEDS: Ondansetron 4 MG/2 ML Vial IV (14:28)
[2023-12-22 14:30] LABS: ALB/GLOB Ratio 0.8 RATIO (0.9-2.4); AST(SGOT) 15 U/L (15-37); Alanine Aminotransfer ALT/SGPT 21 U/L (13-56); Albumin, Serum 3.3 g/dL (3.2-5.0); Alkaline Phosphatase 109 U/L (45-117); Anion Gap 7 (5-15); BUN 12 mg/dL (7-18); BUN/Creat Ratio 17.7 RATIO (10-20); Calcium,Total 8.8 mg/dL (8.5-10.1); Chloride 103 mmol/L (98-107); Creatinine, Serum 0.68 mg/dL (0.55-1.02); EST Glomerular Filtration Rate 117 mL/min (>60); Est Glom Filt Rate - Afr Amer 141 mL/min (>60); Estimated Creatinine Clearance 109.17 ml/min; Globulin 4.4 g/dL (2.2-4.2); Glucose 92 mg/dL (74-106); Potassium 3.7 mmol/L (3.5-5.1); Protein, Total 7.7 g/dL (6.4-8.2); Sodium Level 138 mmol/L (136-145)
[2023-12-22 14:43] LABS: Lipase 16 U/L (13-75)
[2023-12-22 14:47] LABS: Mucous, Urine 0 SEEN /hpf (<or=2+); White Blood Cells 0 SEEN /hpf (0-5)
[2023-12-22 15:08] LABS: Color, Urine Yellow (Yellow); Glucose, Dipstick Normal (Normal); Leukocyte Esterase-Dipstick Negative /ul (Negative); Nitrite-Dipstick Negative (Negative); Occult Blood-Urine 250 /ul (Negative); Protein-Dipstick 30 mg/dl (Negative); Specific Gravity, Urine 1.025 (1.002-1.030); Urine Clarity Sl. Cloudy (Clear); Urine Urobilinogen 1 mg/dl (Normal)
[2023-12-22 15:16] LABS: Ketone-Dipstick 150 mg/dl (Negative); Urine Bilirubin Dipstick 1 mg/dL (Negative)
[2023-12-22 15:17] LABS: Bacteria 2+ /hpf (None Seen); Squamous Epithelial Cells - UA 10-25 SEEN /hpf (5-10)
[2023-12-22 15:18] LABS: Red Blood Cells-Urine 10-25 SEEN /hpf (0-5)
[2023-12-22 17:27] VITALS: BP 113/66; PULSE 104; RESP 18; TEMP 37; O2SAT 98
== END 2023-12-22 17:28 | disposition home or self-care (01) ==
PROVIDERS: Emergency Provider Emergency Medicine; PCP Internal Medicine; Visit Provider Emergency Medicine
DX: A08.4 Viral intestinal infection, unspecified (principal); E86.0 Dehydration; F17.200 Nicotine dependence, unspecified, uncomplicated; Z90.49 Acquired absence of other specified parts of digestive tract; R11.0 Nausea; K62.5 Hemorrhage of anus and rectum
CPT/HCPCS: 80053; 81001; 83690; 84703; 85025; 96361; 96374; 99283; J7030; J2405

== ENCOUNTER 2024-04-28 11:05 | Emergency (ER) | payer MEDICAID, SELFPAY ==
[2024-04-28 11:06] VITALS: BP 117/75; PULSE 125; RESP 18; TEMP 36.6; O2SAT 99; BMI 23.6
[2024-04-28 11:08] VITALS: BP 117/75; PULSE 125; RESP 18; TEMP 36.6; O2SAT 99
--- NOTE | 2024-04-28 11:43 | EDS_ITS ---
HPI History of Present Illness Chief Complaint: Abd Pain Narrative Narrative: Patient is a 19-year-old female with a past medical history anxiety, depression, PTSD who presents to the emergency department the chief complaint of abdominal pain. She states that her abdominal pain has been going on since August 15, 2023 when she delivered her son. She states that her symptoms have progressively worsened and have been worse than normal therefore prompting her to come here to the emergency department. Patient complains of abdominal pain, nausea vomiting diarrhea. She states that she has been sent home a lot recently from work secondary to her symptoms as well. Patient does state that she is sexually active not on any control at this point in time. Patient states that she does have some painful urination and is also noted some back pain associated with this which is new for her with this abdominal pain and therefore came here for the valuation management. Patient denies any recent sick contacts. [facility] Medical History Anorexia PTSD (post-traumatic stress disorder) Depression Headache Vaginal cyst Home Medications ?Medication ?Instructions ?Recorded ?Last Taken ?Type amoxicillin 500 mg tablet 500 mg PO TID #30 tabs 12/15/23 Unknown Rx ondansetron 4 mg disintegrating 4 mg PO Q6H PRN nausea and 12/22/23 Unknown Rx tablet vomiting #10 tabs cephalexin 500 mg capsule 500 mg PO BID 7 days #14 caps 04/28/24 Unknown Rx Allergy/AdvReac Type Severity Reaction Status Date / Time sulfamethoxazole (From AdvReac Mild Vomiting Verified 12/22/23 13:06 Bactrim) trimethoprim (From Bactrim) AdvReac Mild Vomiting Verified 12/22/23 13:06 Surgical History (Updated 04/28/24 @ 11:43 by Shannon Scott) History of appendectomy History of appendectomy Social History household members: significant other Smoking Status: Heavy Smoker (>10/day) alcohol intake: former substance use type: former substance user Date of last use: Marijuana ROS ROS ED ROS Narrative Constitutional: Denies any fevers, chills, headaches, Mo, dizziness ENT: Denies any changes with double vision blurry vision Cardiovascular: Denies chest pain or palpitations Respiratory: Denies coughing wheezing shortness of breath Abdomen: Complains of abdominal pain nausea vomiting diarrhea as noted above Genitourinary: Complains of painful urination denies any hematuria Neurological: Denies any numbness, weakness, or tingling Skin: Denies rashes or lesions Musculoskeletal: Complains of back pain as noted above EXAM Physical Exam Narrative Exam Narrative: General: Patient lying in bed rest comfortably did not appear to be in acute distress Head atraumatic, normocephalic EENT: Pupils equal round react light bilaterally, extraocular muscles intact bilateral, no conjunctival injection noted Neck: Soft, supple, trachea midline Respiratory: Clear to auscultation bilaterally Cardiovascular: Regular rate and rhythm Abdomen: Soft, nondistended, tender to palpation in the suprapubic region no rebound or guarding on exam Extremities: +5/5 strength in the bilateral lower extremities, no pedal edema on exam Neurologic: Patient following commands that she as well as her hospital year is 2023 Skin: Patient has superficial excoriations noted in the epigastric region with no evidence of surrounding infection is healing well at this point in time Psychiatric: Mood and affect appropriate Const Vital Signs: 04/28/24 11:06 04/28/24 11:08 04/28/24 13:05 Temperature 97.9 F 97.9 F Temperature Source Temporal Temporal Pulse Rate 125 H 125 H 111 H Respiratory Rate 18 18 16 Blood Pressure 117/75 117/75 115/79 Blood Pressure Mean 89 89 91 Pulse Ox 99 99 99 Oxygen Delivery Method Room Air Room Air Room Air 04/28/24 15:00 Temperature 97.4 F L Temperature Source Oral Pulse Rate 68 Respiratory Rate 15 Blood Pressure 108/74 Blood Pressure Mean 85 Pulse Ox 98 Oxygen Delivery Method Room Air MDM MDM MDM Narrative Medical decision making narrative: Patient is a 19-year-old female who presented to the emergency department with a chief complaint of abdominal pain and back pain as noted above. On the differ ential diagnosis includes but not limited to UTI, pancreatitis, pyelonephritis, . Once workup is obtained and reviewed she will be reevaluated. Patient was offered pain medication at this point time she states that she does not need any. When inquiring about the superficial excoriations noted in her epigastric region on her abdomen she states that approximately 2 days ago she did cut herself and states that she did this and response to being depressed however she notes that she did not plan on killing herself she does not want to wants to be alive and take care of her child. She denies any thoughts of homicidal ideation as well. Patient CBC reviewed showed no evidence of leukocytosis white blood count normal 8.9, hemoglobin stable 13.1, platelet count normal at 361. Patient sodium normal 136, potassium was 3.3, creatinine normal at 0.65. Patient AST ALT are 12 and 28 respectively. Patient's urinalysis was significant for 500 leukocyte esterase negative nitrates and there were 50-100 white blood cells seen with 2+ bacteria urine test was negative. Patient was given a gram Rocephin here in the emergency department for UTI. Did discuss the results with the patient and she would like to go home at this point in time. Patient will given prescription for Keflex and encouraged to follow-up with her primary care physician in the outpatient setting. She was encouraged to return with worsening symptoms or other concerns. Patient once again was reassessed for suicidal ideation and she states that she is not suicidal nor homicidal and feels safe at home and would like to go home at this point in time. Patient was discharged home with all question concerns answered at bedside. Lab Data Labs: Laboratory Results - last 24 hr 04/28/24 11:40 WBC 8.9 RBC 4.73 Hgb 13.1 Hct 40.6 MCV 85.8 MCH 27.7 MCHC 32.3 RDW Std Deviation 42.8 RDW Coeff of Anthony 13.5 Plt Count 361 MPV 10.1 Immature Gran % (Auto) 0.300 Neut % (Auto) 82.1 H Lymph % (Auto) 10.6 L [place] % (Auto) 6.4 Eos % (Auto) 0.1 Baso % (Auto) 0.5 Absolute Neuts (auto) 7.3 Absolute Lymphs (auto) 0.94 Nucleated RBC % 0 Sodium 136 Potassium 3.3 L Chloride 103 Carbon Dioxide 26.0 Anion Gap 7 BUN 9 Creatinine 0.65 Estim Creat Clear Calc 113.25 Est GFR (MDRD) Af Amer 147 Est GFR (MDRD) Non-Af 122 BUN/Creatinine Ratio 13.8 Glucose 86 Calcium 9.1 Total Bilirubin 0.70 AST 12 L ALT 28 Alkaline Phosphatase 136 H Total Protein 8.4 H Albumin 3.7 Globulin 4.7 H Albumin/Globulin Ratio 0.8 L Lipase 28 Urine Color Yellow Urine Clarity Cloudy Urine pH 7.0 Ur Specific [place] 1.010 Urine Protein 30 H Urine Glucose (UA) Normal Urine Ketones 5 H Urine Occult Blood 10 H Urine Nitrite Negative Urine Bilirubin 1 H Urine Urobilinogen 4 H Ur Leukocyte Esterase 500 H Urine RBC 0 SEEN Urine WBC 50-100 SEEN Ur Squamous Epith Cells 25-50 SEEN Urine Bacteria 2+ Urine Mucus 1+ Urine Test Negative Discharge Plan Triage Chief Complaint: Abd Pain ED Provider: Ricco Cox Dx/Rx/DC Orders Clinical Impression: Urinary tract infection Instructions: ED Cystitis Female Adult Prescriptions: New cephalexin 500 mg capsule 500 mg PO BID 7 Days Qty: 14 0RF No Action amoxicillin 500 mg tablet 500 mg PO TID Qty: 30 0RF ondansetron 4 mg tablet,disintegrating 4 mg PO Q6H PRN (Reason: nausea and vomiting) Qty: 10 0RF Primary Care Provider: Zach Good Referrals: Zach Good DO [Primary Care Provider] - Activity Restrictions/Additional Instructions: Take antibiotics as prescribed. Return with worsening symptoms or other concerns. Follow-up with primary care physician outpatient setting. Print Language: Lao Disposition Disposition: Home, Self Care
[2024-04-28 11:50] LABS: Red Blood Cells-Urine 0 SEEN /hpf (0-5)
[2024-04-28 11:52] LABS: Absolute Lymphocyte Count 0.94 X10^3/uL (0.83-4.51); Absolute Neutrophil Count 7.3 X10^3/uL (2.0-7.7); Basophil# 0.04 X10^3/uL; Basophil% 0.5 % (0-1); Eosinophil# 0.01 X10^3/uL; Eosinophils% 0.1 % (0-5); Hematocrit 40.6 % (37-47); Hemoglobin 13.1 g/dL (12.0-15.0); Lymphocyte # 0.94 X10^3/ul (0.83-4.51); Lymphocyte % 10.6 % (19-41); Mean Corp Hgb Conc 32.3 g/dL (32-36); Mean Corpuscular Hgb 27.7 pg (27.0-32.0); Mean Corpuscular Volume 85.8 fL (81-99); Mean Platelet Vol. 10.1 fl (6.2-12.0); Monocyte# 0.57 X10^3/uL; Monocyte% 6.4 % (0-10); NRBC Flagged by Analyzer 0 % (0-5); Neutrophil # 7.28 X10^3/uL (2.7-7.7); Neutrophil % 82.1 % (47-70); Platelet Count 361 K/mm3 (150-450); RBC Distribution Width CV 13.5 % (11.6-14.6); RBC Distribution Width SD 42.8 fl (35.1-43.9); Red Blood Count 4.73 M/mm3 (4.2-5.4); White Blood Count 8.9 K/mm3 (4.4-11.0)
[2024-04-28 12:12] LABS: Color, Urine Yellow (Yellow); Glucose, Dipstick Normal (Normal); Ketone-Dipstick 5 mg/dl (Negative); Leukocyte Esterase-Dipstick 500 /ul (Negative); Nitrite-Dipstick Negative (Negative); Occult Blood-Urine 10 /ul (Negative); Protein-Dipstick 30 mg/dl (Negative); Urine Bilirubin Dipstick 1 mg/dL (Negative); Urine Clarity Cloudy (Clear); Urine Urobilinogen 4 mg/dl (Normal)
[2024-04-28 12:20] LABS: Squamous Epithelial Cells - UA 25-50 SEEN /hpf (5-10)
[2024-04-28 12:21] LABS: Bacteria 2+ /hpf (None Seen); White Blood Cells 50-100 SEEN /hpf (0-5)
[2024-04-28 12:22] LABS: Internal QC Validated? YES +Cl - CLEAR BKGD; Mucous, Urine 1+ /hpf (<or=2+); Pregnancy, Urine Negative Negative
[2024-04-28 12:38] LABS: ALB/GLOB Ratio 0.8 RATIO (0.9-2.4); AST(SGOT) 12 U/L (15-37); Alanine Aminotransfer ALT/SGPT 28 U/L (13-56); Albumin, Serum 3.7 g/dL (3.2-5.0); Alkaline Phosphatase 136 U/L (45-117); Anion Gap 7 (5-15); BUN 9 mg/dL (7-18); BUN/Creat Ratio 13.8 RATIO (10-20); Calcium,Total 9.1 mg/dL (8.5-10.1); Chloride 103 mmol/L (98-107); Creatinine, Serum 0.65 mg/dL (0.55-1.02); EST Glomerular Filtration Rate 122 mL/min (>60); Est Glom Filt Rate - Afr Amer 147 mL/min (>60); Estimated Creatinine Clearance 113.25 ml/min; Globulin 4.7 g/dL (2.2-4.2); Glucose 86 mg/dL (74-106); Lipase 28 U/L (13-75); Potassium 3.3 mmol/L (3.5-5.1); Protein, Total 8.4 g/dL (6.4-8.2); Sodium Level 136 mmol/L (136-145)
[2024-04-28 13:05] VITALS: BP 115/79; PULSE 111; RESP 16; O2SAT 99
[2024-04-28] MEDS: Ceftriaxone 1 GM/50 ML BAG IV (14:41)
[2024-04-28 15:00] VITALS: BP 108/74; PULSE 68; RESP 15; TEMP 36.3; O2SAT 98
[2024-04-28 15:26] VITALS: BP 109/74; PULSE 68; RESP 15; TEMP 36.4; O2SAT 99
== END 2024-04-28 15:28 | disposition home or self-care (01) ==
PROVIDERS: Emergency Provider Emergency Medicine; PCP Internal Medicine; Visit Provider Emergency Medicine
DX: N39.0 Urinary tract infection, site not specified (principal); F17.210 Nicotine dependence, cigarettes, uncomplicated
CPT/HCPCS: 80053; 81001; 81025; 83690; 85025; 96365; 99283; A4216

== ENCOUNTER 2024-07-06 06:25 | Emergency (ER) | payer MEDICAID, SELFPAY ==
[2024-07-06 06:26] VITALS: BP 125/66; PULSE 103; RESP 16; TEMP 36.5; O2SAT 96; BMI 23.3
[2024-07-06 06:29] VITALS: BP 125/66; PULSE 103; RESP 16; TEMP 36.5; O2SAT 96
--- NOTE | 2024-07-06 06:37 | RAD_ITS ---
STUDY: X-RAY CHEST REASON FOR EXAM: Female, 19 years old patient with cough. TECHNIQUE: PA and lateral views of the chest. COMPARISON: None. FINDINGS: The lungs are clear and expanded. There is no demonstrated pleural abnormality. Normal size heart. Normal mediastinum and nicole. Normal visualized pulmonary arteries. Normal visualized aortic arch and descending thoracic aorta. Normal visualized thoracic spine. Normal visualized ribs, clavicles, and shoulders. There is no demonstrated abnormality of the visualized soft tissue structures of the upper abdomen. RAD/Chest PA and Lateral IMPRESSION: No radiographic evidence of acute cardiopulmonary disease. Electronically Signed: Stephany Arteaga MD at 7:01 EDT ,
--- NOTE | 2024-07-06 07:11 | EDS_ITS ---
HPI History of Present Illness Chief Complaint: Cough Informant: patient Narrative Narrative: Patient is a 19-year-old female with past medical history of depression and PTSD who also states that she vapes. 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 She reports she has had approximately 2 weeks of nasal congestion and cough associate with headache and fatigue. She denies any history of immunosuppression. She states she tried to schedule an appointment with her family doctor but because of the symptoms being potentially related to COVID she was advised to come to the hospital for evaluation and therefore she presents at this time. [facility] Medical History Abscess Anorexia PTSD (post-traumatic stress disorder) Depression Headache Vaginal cyst Home Medications ?Medication ?Instructions ?Recorded ?Last Taken ?Type azelastine 137 mcg (0.1 %) nasal 2 spray intranasal BID #30 mL 07/06/24 Unknown Rx spray azithromycin 250 mg tablet See Rx Instructions PO .COMPLEX #6 07/06/24 Unknown Rx (Zithromax Z-Rajesh) tabs benzonatate 200 mg capsule 200 mg PO TID PRN cough #30 caps 07/06/24 Unknown Rx prednisone 20 mg tablet 40 mg (2 x 20 mg) PO DAILY 5 days 07/06/24 Unknown Rx #10 tabs Allergy/AdvReac Type Severity Reaction Status Date / Time sulfamethoxazole (From AdvReac Mild Vomiting Verified 07/06/24 06:26 Bactrim) trimethoprim (From Bactrim) AdvReac Mild Vomiting Verified 07/06/24 06:26 Surgical History (Updated 04/28/24 @ 11:43 by Shannon Scott) History of appendectomy History of appendectomy Social History household members: significant other Smoking Status: Heavy Smoker (>10/day) alcohol intake: former substance use type: former substance user Date of last use: Marijuana ROS ROS ED Constitutional Constitutional ED: Denies chills or fever(s) Eyes Eyes: Denies blurry vision or change in vision ENT ENT ED: Reports rhinorrhea and sore throat; Denies ear pain Cardiovascular Cardiovascular: Denies chest pain Respiratory/Chest Respiratory/Chest: Reports cough; Denies dyspnea Gastrointestinal Gastrointestinal: Reports diarrhea and nausea; Denies abdominal pain or vomiting Genitourinary Genitourinary ED: Denies dysuria Musculoskeletal Musculoskeletal: Reports myalgias Integumentary Denies rash Neurologic Neurologic: Reports headache(s) Hematologic/Lymphatic Hematologic/Lymphatic: Denies easy bleeding or easy bruising Allergic/Immunologic Allergic/Immunologic ED: Denies mouth swelling or tongue swelling EXAM Physical Exam Const Vital Signs: 07/06/24 06:26 07/06/24 06:29 07/06/24 06:29 Temperature 97.7 F L 97.7 F L Temperature Source Oral Oral Pulse Rate 103 H 103 H Respiratory Rate 16 16 Respiratory Effort Normal Non-Labored Respiratory Depth Respiratory Pattern Normal Blood Pressure 125/66 H 125/66 H Blood Pressure Mean 85 85 Pulse Ox 96 96 Oxygen Delivery Method Room Air Room Air 07/06/24 06:29 Temperature Temperature Source Pulse Rate Respiratory Rate Respiratory Effort Normal Non-Labored Respiratory Depth Normal Respiratory Pattern Normal Blood Pressure Blood Pressure Mean Pulse Ox Oxygen Delivery Method Room Air Positive well nourished and well developed General Appearance ED: well developed; Negative for pallor HEENT Reports moist mucous membranes HEENT Narrative: Bilateral TMs are retracted but show no secondary changes to suggest infection Nasal mucosa is hyperemic and boggy with dried purulent discharge. There is cobblestoning the posterior pharynx consistent with sinus drainage without airway edema or compromise or secondary findings to suggest infection Eyes PERRL and EOMs intact bilaterally General Eye ED: Negative for scleral icterus Neck supple Neck Narrative: No nuchal rigidity or meningeal signs No crepitance Chest Wall palpation of chest normal Resp normal respiratory effort and clear to auscultation bilaterally Resp Narrative: No nasal flaring retractions tachypnea or accessory muscle use Breath sounds are overall clear to auscultation Cardio regular rate and regular rhythm GI non-tender, non-distended and no masses GI Narrative: Abdomen is soft nontender nondistended with hyperactive bowel sounds. No voluntary guarding or rigidity or pulsatile mass Auscultation: hyperactive bowel sounds Palpation: soft Extremity normal to inspection Extremity Narrative: No asymmetric edema no pitting edema negative Homans' sign bilaterally Neuro oriented x3, CN's II-XII intact bilaterally and no sensory deficits noted Sensorium / Orientation: alert Motor Exam: strength 5/5 throughout Psych mental status grossly normal Skin no rashes or lesions noted General Skin Exam: Negative for jaundice or pallor MDM MDM MDM Narrative Medical decision making narrative: Patient arrived to the ER in no acute respiratory distress satting in the high 90s on room air. She has multiple sick contacts at work and therefore there is concern she has pneumonia versus COVID versus influenza versus RSV. Secondary to this a chest x-ray and viral swab were obtained. Chest x-ray revealed no acute lung pathology and viral swab was negative. However based on her symptoms of congestion drainage and cough this is most likely another type of virus such as rhinovirus or human metapneumovirus. Either way she is not in respiratory distress she is not hypoxic or requiring supplemental oxygen so therefore there is no need for further workup or admission and she can be discharged home with symptomatic care History & Record Review Discussion w/independent historian: Patient Radiography Diagnostic Testing: Clinical Impression(s) from Imaging Studies Chest X-Ray 07/06/24 06:37 IMPRESSION: No radiographic evidence of acute cardiopulmonary disease. Electronically Signed: Stephany Arteaga MD at 7:01 EDT Reading Location ID and State: [address] [place] [address] , Service support , Chest x-ray as interpreted by the emergency medicine physician reveals no acute infiltrate pneumothorax or pleural effusion Discharge Plan Triage Chief Complaint: Cough Other Complaint: Cold Sx ED Provider: Edgar Ross Dx/Rx/DC Orders Clinical Impression: Viral upper respiratory tract infection with cough, Depression, History of posttraumatic stress disorder (PTSD) Instructions: ED Upper Resp Infec Abx Tx Prescriptions: New azithromycin [Zithromax Z-Rajesh] 250 mg tablet See Rx Instructions .ROUTE .COMPLEX Qty: 6 0RF Rx Instructions: For 250 mg dose pack: take 500 mg today (day 1), then 250 mg for 4 days (days 2-5) prednisone 20 mg tablet 40 mg PO DAILY 5 Days Qty: 10 0RF azelastine 137 mcg (0.1 %) spray,non-aerosol 2 spray intranasal BID Qty: 30 0RF Rx Instructions: administer into each nostril benzonatate 200 mg capsule 200 mg PO TID PRN (Reason: cough) Qty: 30 0RF Stand Alone Forms: ED Work / School Excuse Primary Care Provider: Zach Good Referrals: Zach Good, DO [Primary Care Provider] - Print Language: South Korean Disposition Disposition: Home, Self Care
[2024-07-06 08:38] VITALS: BP 124/78; PULSE 69; RESP 16; TEMP 36.2; O2SAT 100
== END 2024-07-06 08:39 | disposition home or self-care (01) ==
PROVIDERS: Emergency Provider Emergency Medicine; PCP Internal Medicine; Visit Provider Emergency Medicine
DX: J06.9 Acute upper respiratory infection, unspecified (principal); F32.A Depression, unspecified; F12.90 Cannabis use, unspecified, uncomplicated; F17.200 Nicotine dependence, unspecified, uncomplicated; R05.9 Cough, unspecified; F43.10 Post-traumatic stress disorder, unspecified; Z90.49 Acquired absence of other specified parts of digestive tract
CPT/HCPCS: 71046; 87631; 99283

== ENCOUNTER 2024-08-31 06:34 | Emergency (ER) | payer MEDICAID, SELFPAY ==
[2024-08-31 06:34] VITALS: BP 126/78; PULSE 85; RESP 16; TEMP 36.4; O2SAT 97; BMI 22.4
[2024-08-31 06:38] VITALS: BP 126/78; PULSE 85; RESP 16; TEMP 36.4; O2SAT 97
[2024-08-31 06:39] VITALS: O2SAT 97
--- NOTE | 2024-08-31 06:46 | RAD_ITS ---
EXAM: XR CHEST, 2 VIEWS CLINICAL INDICATION: cough TECHNIQUE: Frontal and lateral views of the chest. COMPARISON: Two-view chest 07/06/2024 FINDINGS: LUNGS AND PLEURAL SPACES: Unremarkable. No consolidation or edema. No pneumothorax. No effusion. HEART: Unremarkable. Cardiac silhouette not enlarged. MEDIASTINUM: Central airways and mediastinal contour are unremarkable. BONES/JOINTS: Unremarkable. No acute fracture. SOFT TISSUES: Unremarkable. RAD/Chest PA and Lateral IMPRESSION: No radiographic evidence of acute cardiopulmonary disease. Electronically Signed: Wally Patel MD at 7:11 EST ,
--- NOTE | 2024-08-31 06:47 | EDS_ITS ---
HPI HPI - URI History of Present Illness Chief Complaint: Cold Sx Informant: patient Onset/Context/Timing Onset: Days Context: Gradual Onset Timing: Continuous Current Severity: Mild Maximum Severity: Mild Associated Symptoms Associated Symptoms: Positive for Nasal Congestion and Nonproductive cough Narrative Narrative: Healthy 19-year-old female past medical history of appendectomy and . States that she has had about a weeklong history of cough. Initially mild sore throat and laryngitis sore throat resolved. He is also having mild wheezing. Mostly the cough nonproductive at times she does have clear phlegm. Denies any hemoptysis. No vomiting. No diarrhea. No dysuria. Prior similar symptoms: Yes Recent Illness/Hospitalization: No ROS ROS ED ROS Narrative Cough. Constitutional Constitutional ED: Reports chills; Denies fever(s) Eyes Eyes: Denies blurry vision ENT ENT ED: Denies ear pain Cardiovascular Cardiovascular: Denies chest pain Respiratory/Chest Respiratory/Chest: Reports cough; Denies dyspnea Gastrointestinal Gastrointestinal: Denies abdominal pain, constipation, diarrhea, melena, nausea or vomiting Genitourinary Genitourinary ED: Denies dysuria or hematuria Musculoskeletal Musculoskeletal: Denies arthralgias or back pain Integumentary Denies abscess or Abrasions Neurologic Neurologic: Denies headache(s) Psychiatric Psychiatric: Denies anxiety or depression Endocrine Endocrinology: Denies cold intolerance Hematologic/Lymphatic Hematologic/Lymphatic: Denies easy bleeding, easy bruising or lymphadenopathy Allergic/Immunologic Allergic/Immunologic ED: Denies mouth swelling, tongue swelling or urticaria PFSH PFSH Medical History Abscess Anorexia PTSD (post-traumatic stress disorder) Depression Headache Vaginal cyst Home Medications ?Medication ?Instructions ?Recorded ?Last Taken ?Type azelastine 137 mcg (0.1 %) nasal 2 spray intranasal BID PRN nasal 08/31/24 Unknown History spray congestion prednisone 20 mg tablet 40 mg (2 x 20 mg) PO DAILY 7 days 08/31/24 Unknown Rx #14 tabs Allergy/AdvReac Type Severity Reaction Status Date / Time sulfamethoxazole (From AdvReac Mild Vomiting Verified 08/31/24 06:35 Bactrim) trimethoprim (From Bactrim) AdvReac Mild Vomiting Verified 08/31/24 06:35 Surgical History History of appendectomy History of appendectomy Social History household members: significant other Smoking Status: Heavy Smoker (>10/day) alcohol intake: former substance use type: former substance user Date of last use: Marijuana EXAM Physical Exam Narrative Exam Narrative: 19-year-old female no acute distress. Vital signs stable afebrile. Pulse ox 97% on room air no signs of hypoxia. H EENT exam unremarkable. Neck nontender no JVD. No lymphadenopathy. TMs are normal bilaterally. Somewhat obscured on the left. Posterior pharynx normal. No erythema or exudate. No trouble swallowing or breathing. Trachea midline. Lungs a few expiratory wheezes on the left. Equal symmetrical. No rales or rhonchi. Heart regular rate and rhythm rate about 85 no murmur. Chest wall ribs nontender. Abdomen soft nontender. Moving all 4 extremities. Calves are nontender without edema or cor ds. Back is nontender. Neurologically patient is awake and alert no focal motor deficits. Const Vital Signs: 08/31/24 06:34 08/31/24 06:34 08/31/24 06:38 Temperature 97.6 F L 97.6 F L Temperature Source Oral Oral Pulse Rate 85 85 Respiratory Rate 16 16 Respiratory Effort Normal Non-Labored Respiratory Depth Respiratory Pattern Normal Blood Pressure 126/78 H 126/78 H Blood Pressure Mean 94 94 Pulse Ox 97 97 Oxygen Delivery Method Room Air Room Air 08/31/24 06:39 Temperature Temperature Source Pulse Rate Respiratory Rate Respiratory Effort Normal Non-Labored Respiratory Depth Normal Respiratory Pattern Normal Blood Pressure Blood Pressure Mean Pulse Ox Oxygen Delivery Method Room Air Positive well nourished and well developed; Negative for obese, cachectic or contractures General Appearance ED: well developed and NAD; Negative for cachectic, contractures, cyanotic, diaphoretic or pallor Nutritional Appearance: Negative for cachectic or obese HEENT Reports moist mucous membranes normocephalic and atraumatic; Negative for scalp tenderness Face and Sinus: Negative for sinus tenderness Teeth and Gingiva: Negative for caries Throat: posterior oropharynx normal; Negative for tonsils abnormal or posterior oropharynx abnormal Eyes PERRL and EOMs intact bilaterally General Eye ED: Negative for pale conjunctiva or scleral icterus Neck no lymphadenopathy, supple and no meningeal signs General: Negative for anterior neck swelling or lymphadenopathy Resp normal respiratory effort and No clear to auscultation bilaterally Resp Narrative: Few skin expiratory wheezes on the left. Auscultation: wheezes Cardio S1 normal heart sound, S2 normal heart sound and no murmurs Rate: regular rate Rhythm: regular rhythm GI non-tender, non-distended and no masses Auscultation: normoactive bowel sounds Palpation: soft; Negative for tender or guarding Back/Spine no CVA tenderness and normal ROM General Back: Negative for CVA tenderness Cervical Spine: Negative for cervical spine tenderness Thoracic Spine / Upper Back: Negative for thoracic spinal tenderness Lumbar Spine / Lower Back: Negative for lumbar spinal tenderness Sacrum: Negative for tenderness Extremity normal to inspection and full ROM General Extremety ED: Negative for cyanosis, tenderness or other findings General Extremity: Negative for cyanosis or other findings Neuro oriented x3 and CN's II-XII intact bilaterally Sensorium / Orientation: alert, oriented to person, oriented to place and oriented to time; Negative for orientation impaired, lethargic or stuporous Motor Exam: strength 5/5 throughout; Negative for general weakness or strength abnormal Psych mental status grossly normal Appearance: Negative for other Attitude: No agitated Mood & Affect: Negative for depressed, anxious or tearful Skin General Skin Exam: Negative for jaundice or pallor Lesions: no lesions Rashes: no rashes MDM MDM MDM Narrative Medical decision making narrative: 19-year-old female most likely has a viral URI chest x-ray to be obtained to rule out pneumonia. She denies discussed COVID and flu testing and she deferred. She has had the symptoms for 1 week I do not think it would change any treatment plan. Patient will be given 3 days off work. Prednisone daily for the next week to decrease inflammation and resolve the wheezing. Follow-up as needed. She currently does not need an antibiotic. History & Record Review Discussion w/independent historian: Patient Additional record(s) reviewed:: Prior inpatient record, Prior outpatient record, Prior ED visit and Prior labs Radiography Chest X-Ray - ED: 2 View, Read by ED Physician, Heart, Lungs, Mediastinum, Bony Structures and No Acute Disease Diagnostic Testing: Chest x-ray, 2 views, AP and lateral shows no acute abnormality. Normal cardiac silhouette. Normal lung kelsey. Normal ribs. No pneumonia. No effusion. Discharge Plan Triage Chief Complaint: Cold Sx ED Provider: Geovanny Cruz Dx/Rx/DC Orders Clinical Impression: Viral URI Instructions: ED URI, Viral W/ Wheezing (Adult) Prescriptions: New prednisone 20 mg tablet 40 mg PO DAILY 7 Days Qty: 14 0RF No Action azelastine 137 mcg (0.1 %) spray,non-aerosol 2 spray intranasal BID PRN (Reason: nasal congestion) Rx Instructions: administer into each nostril Primary Care Provider: Zach Good Referrals: Zach Good, [Primary Care Provider] - As Needed Activity Restrictions/Additional Instructions: Chest x-ray looks good no pneumonia. Most likely a viral respiratory infection. Due to your wheezing you will be placed on prednisone 40 mg a day for a week. Follow-up with your primary care provider if not improving or getting worse. Print Language: Hebrew Disposition Disposition: Home, Self Care
[2024-08-31 07:14] VITALS: BP 0/0; PULSE 89; RESP 16; TEMP 36.6; O2SAT 97
== END 2024-08-31 07:16 | disposition home or self-care (01) ==
PROVIDERS: Emergency Provider Emergency Medicine; PCP Internal Medicine; Visit Provider Emergency Medicine
DX: J06.9 Acute upper respiratory infection, unspecified (principal); F17.200 Nicotine dependence, unspecified, uncomplicated; Z90.49 Acquired absence of other specified parts of digestive tract; R05.9 Cough, unspecified
CPT/HCPCS: 71046; 99283

== ENCOUNTER 2024-09-26 06:27 | Emergency (ER) | payer MEDICAID, SELFPAY ==
[2024-09-26 06:27] VITALS: BP 130/68; PULSE 111; RESP 16; TEMP 36.5; O2SAT 98; BMI 22.2
--- NOTE | 2024-09-26 06:50 | EKG12_ITS ---
Test Reason : PALPITATIONS Blood Pressure : */* mmHG Vent. Rate : 96 BPM Atrial Rate : 96 BPM P-R Int : 170 ms QRS Dur : 76 ms QT Int : 342 ms P-R-T Axes : 61 32 42 degrees QTcB Int : 432 ms Sinus rhythm with marked sinus arrhythmia Otherwise normal ECG Confirmed by BENTLEY PRATT, CYNTHIA ([id number]), marketing editor KENZIE MAYEN ([id number]) on 09/27/2024 8:07:38 AM Referred By: Confirmed By: CYNTHIA HAGAN MD
[2024-09-26 07:02] LABS: Absolute Lymphocyte Count 2.21 X10^3/uL (0.83-4.51); Absolute Neutrophil Count 3.4 X10^3/uL (2.0-7.7); Basophil# 0.07 X10^3/uL; Basophil% 1.1 % (0-1); Eosinophil# 0.21 X10^3/uL; Eosinophils% 3.3 % (0-5); Hematocrit 39.4 % (37-47); Hemoglobin 13.2 g/dL (12.0-15.0); Lymphocyte # 2.21 X10^3/ul (0.83-4.51); Lymphocyte % 34.3 % (19-41); Mean Corp Hgb Conc 33.5 g/dL (32-36); Mean Corpuscular Hgb 30.3 pg (27.0-32.0); Mean Corpuscular Volume 90.6 fL (81-99); Mean Platelet Vol. 10.6 fl (6.2-12.0); Monocyte# 0.53 X10^3/uL; Monocyte% 8.2 % (0-10); NRBC Flagged by Analyzer 0 % (0-5); Neutrophil # 3.41 X10^3/uL (2.7-7.7); Neutrophil % 52.9 % (47-70); Platelet Count 390 K/mm3 (150-450); RBC Distribution Width CV 13.2 % (11.6-14.6); RBC Distribution Width SD 44.3 fl (35.1-43.9); Red Blood Count 4.35 M/mm3 (4.2-5.4); White Blood Count 6.4 K/mm3 (4.4-11.0)
[2024-09-26 07:18] LABS: Internal QC Validated? YES +Cl - CLEAR BKGD; Pregnancy, Serum, hCG Quali. NEGATIVE Negative
--- NOTE | 2024-09-26 07:32 | EDS_ITS ---
HPI History of Present Illness Chief Complaint: Palpitations Informant: patient and family Narrative Narrative: Patient is a 19-year-old female with past medical history of anxiety and depression as well as PTSD. She states for quite some time she has been waking up and feeling like her heart is racing. She states that the palpitations/tachycardia occurs while she is lying down and not after waking from sleep and standing. She states that she has not been evaluated for this previously. She reports that there is no known history or family history of cardiac dysrhythmia. She denies any excessive stimulant or illicit drug use. States that she feels like her symptoms are becoming more frequent and more severe and with this comes in for evaluation [facility] Medical History Abscess Anorexia PTSD (post-traumatic stress disorder) Depression Headache Vaginal cyst Home Medications ?Medication ?Instructions ?Recorded ?Last Taken ?Type NK 09/26/24 Unknown History Allergy/AdvReac Type Severity Reaction Status Date / Time sulfamethoxazole (From AdvReac Mild Vomiting Verified 09/26/24 06:28 Bactrim) trimethoprim (From Bactrim) AdvReac Mild Vomiting Verified 09/26/24 06:28 Surgical History History of appendectomy History of appendectomy Social History household members: significant other Smoking Status: Heavy Smoker (>10/day) alcohol intake: former substance use type: former substance user Date of last use: Marijuana ROS ROS ED Constitutional Constitutional ED: Denies chills or fever(s) Eyes Eyes: Denies blurry vision or change in vision ENT ENT ED: Denies sore throat Cardiovascular Cardiovascular: Reports palpitations and racing heartbeat; Denies chest pain Respiratory/Chest Respiratory/Chest: Denies cough or dyspnea Gastrointestinal Gastrointestinal: Denies abdominal pain, diarrhea, nausea or vomiting Genitourinary Genitourinary ED: Denies dysuria or hematuria Musculoskeletal Musculoskeletal: Denies myalgias Integumentary Denies rash Neurologic Neurologic: Denies headache(s) Psychiatric Psychiatric: Reports anxiety Hematologic/Lymphatic Hematologic/Lymphatic: Denies easy bleeding or easy bruising EXAM Physical Exam Const Vital Signs: 09/26/24 06:27 09/26/24 06:27 Temperature 97.7 F L Temperature Source Oral Pulse Rate 111 H Respiratory Rate 16 Respiratory Effort Normal Non-Labored Blood Pressure 130/68 H Blood Pressure Mean 88 Pulse Ox 98 Oxygen Delivery Method Room Air Positive well nourished and well developed General Appearance ED: well developed; Negative for pallor HEENT HEENT Narrative: Normocephalic atraumatic Eyes PERRL and EOMs intact bilaterally General Eye ED: Negative for scleral icterus Neck supple Neck Narrative: No nuchal rigidity or meningeal signs Chest Wall palpation of chest normal Resp normal respiratory effort and clear to auscultation bilaterally Cardio regular rate and regular rhythm Rate: other Other Details: Heart is regular rate and rhythm without murmurs rubs or gallop Radial and carotid pulses are equal and symmetric GI normal to inspection, nondistended, normoactive bowel sounds, non-tender, non- distended and no masses Auscultation: normoactive bowel sounds Palpation: soft Extremity normal to inspection Extremity Narrative: No asymmetric edema no pitting edema negative Homans' sign bilaterally Neuro oriented x3, CN's II-XII intact bilaterally and no sensory deficits noted Sensorium / Orientation: alert Motor Exam: strength 5/5 throughout Psych Mood & Affect: anxious Skin no rashes or lesions noted General Skin Exam: Negative for jaundice or pallor MDM MDM MDM Narrative Medical decision making narrative: Patient arrived to the ER slightly tachycardic but otherwise with stable vitals. She reported that she has been awakening with sensation of heart racing/palpitations for quite some time but has not been worked up for it. Demential diagnosis is for cardiac dysrhythmia such as atrial fibrillation atrial flutter or SVT. There is concern for acute blood loss anemia electrolyte abnormality or acute kidney injury or thyroid disorder as a potential cause. There is possibility of as a cause for her recurrent symptoms. As she states the symptoms occur while sleeping and lying down and are not associated with changes in position I have lower concern for POTS. In order to check for potential causes of her palpitations basic blood work was obtained. Labs revealed no signs of acute loss anemia severe electrolyte abnormality or thyroid disorder. The patient was kept on the monitor and had no cardiac dysrhythmia noted. Without any type of medication the patient's heart rate reduced to below 100. Therefore at this time patient's had spontaneous improvement of symptoms her overall workup is negative she does not have an acute cardiac dysrhythmia and therefore there is no need for further evaluation in the hospital. Patient can follow-up with the family doctor as an outpatient and discuss a potential Holter monitor and/or cardiology referral if symptoms persist History & Record Review Discussion w/independent historian: Patient and Family Lab Data Attestation: I reviewed the patient's lab results. Labs: Laboratory Results - last 24 hr 09/26/24 06:55 WBC 6.4 RBC 4.35 Hgb 13.2 Hct 39.4 MCV 90.6 MCH 30.3 MCHC 33.5 RDW Std Deviation 44.3 H RDW Coeff of Anthony 13.2 Plt Count 390 MPV 10.6 Immature Gran % (Auto) 0.200 Neut % (Auto) 52.9 Lymph % (Auto) 34.3 [place] % (Auto) 8.2 Eos % (Auto) 3.3 Baso % (Auto) 1.1 H Absolute Neuts (auto) 3.4 Absolute Lymphs (auto) 2.21 Nucleated RBC % 0 Serum , Qual NEGATIVE Discharge Plan Triage Chief Complaint: Palpitations ED Provider: Edgar Ross Dx/Rx/DC Orders Clinical Impression: Palpitations, Anxiety and depression Instructions: ED Palpitations Prescriptions: No Action NK Primary Care Provider: Zach Good Referrals: Zach Good DO [Primary Care Provider] - Activity Restrictions/Additional Instructions: Your workup today showed no abnormal heart rhythm and no obvious cause for your palpitations such as low blood volume electrolyte abnormality or thyroid disorder. In order to further evaluate your palpitations talk to your family doctor about a Holter monitor and/or cardiology referral and potentially a sleep study. If symptoms worsen or you have any further concerns please return to the hospital for repeat evaluation Print Language: [place] Disposition Disposition: Home, Self Care
[2024-09-26 07:34] LABS: Anion Gap 5 (5-15); BUN 11 mg/dL (7-18); BUN/Creat Ratio 15.9 RATIO (10-20); Calcium,Total 9.2 mg/dL (8.5-10.1); Chloride 111 mmol/L (98-107); Creatinine, Serum 0.69 mg/dL (0.55-1.02); EST Glomerular Filtration Rate 113 mL/min (>60); Est Glom Filt Rate - Afr Amer 137 mL/min (>60); Estimated Creatinine Clearance 106.69 ml/min; Glucose 92 mg/dL (74-106); Potassium 3.5 mmol/L (3.5-5.1); Sodium Level 142 mmol/L (136-145)
[2024-09-26 08:11] VITALS: BP 104/80; PULSE 87; RESP 16; TEMP 36.4; O2SAT 98
== END 2024-09-26 08:11 | disposition home or self-care (01) ==
PROVIDERS: Emergency Provider Emergency Medicine; PCP Internal Medicine; Visit Provider Emergency Medicine
DX: R00.2 Palpitations (principal); F41.8 Other specified anxiety disorders; F17.200 Nicotine dependence, unspecified, uncomplicated; Z90.49 Acquired absence of other specified parts of digestive tract
CPT/HCPCS: 80048; 83735; 84443; 84703; 85025; 93005; 99284; A4216

== ENCOUNTER 2024-11-02 07:06 | Emergency (ER) | payer MEDICAID, SELFPAY ==
[2024-11-02 07:06] VITALS: BP 110/84; PULSE 110; RESP 19; TEMP 36.1; O2SAT 99; BMI 22.1
--- NOTE | 2024-11-02 07:13 | ED.VIS.GI ---
HPI HPI - GI History of Present Illness Chief Complaint: Diarrhea Narrative Narrative: 19-year-old female presents with multiple episodes of diarrhea, approximately 9 in the last 2 hours. She states that for the last 14 months, she wakes up, and also feels short of breath. She has to lay on the floor and today she developed abdominal pain. She states that over the last 14 months since she had her child, she has diarrhea. Has been seen in the emergency department and worked up and states that she also wore a Holter monitor ordered by her primary care provider but does not have any results. She is here mainly because she had multiple episodes of diarrhea, and may feel little lightheaded today. She has not followed up with gastroenterology, but was told she may have irritable bowel syndrome. She complains of bilateral lower quadrant pain as well. Past abdominal surgeries include and appendectomy. No nausea or vomiting. Additionally, she states that recently she had a cyst drained but has not had any antibiotics. [facility] Medical History Abscess Anorexia PTSD (post-traumatic stress disorder) Depression Headache Vaginal cyst Home Medications ?Medication ?Instructions ?Recorded ?Last Taken ?Type NK 09/26/24 Unknown History dicyclomine 20 mg tablet 20 mg PO TID PRN abdominal pain 11/02/24 Unknown Rx #20 tabs Allergy/AdvReac Type Severity Reaction Status Date / Time sulfamethoxazole (From AdvReac Mild Vomiting Verified 11/02/24 07:09 Bactrim) trimethoprim (From Bactrim) AdvReac Mild Vomiting Verified 11/02/24 07:09 Surgical History History of appendectomy History of appendectomy Social History household members: significant other Smoking Status: Heavy Smoker (>10/day) alcohol intake: former substance use type: former substance user Date of last use: Marijuana ROS ROS ED ROS Narrative Constitutional: No fever, no chills. HEENT: No sore throat. No neck pain. No loss of vision. No rhinorrhea. Cardiovascular: No chest pain. No palpitations. No pedal edema. Respiratory: No cough, positive shortness of breath. Abdominal: Bilateral lower quadrant abdominal pain. No nausea. No vomiting. 9 episodes of watery diarrhea today in the last 2 hours. Genitourinary: No dysuria. No hematuria. Musculoskeletal: No myalgias. No arthralgias. Neurologic: No headaches. No dizziness. Positive lightheadedness. Skin: No rash. No change in color. Psychiatric: No depression. No anxiety. EXAM Physical Exam Narrative Exam Narrative: Afebrile. Vital signs noted. Nontoxic-appearing. Cardiovascular examination reveals mild tachycardia without ectopy or extrasystoles. Lungs are clear to auscultation bilaterally. Abdomen is soft with mild tenderness to palpation in the bilateral lower quadrants, left greater than right. No rebound or guarding. Positive bowel sounds. Neurological examination is nonfocal and nonlateralizing. Const Vital Signs: 11/02/24 07:06 Temperature 97 F L Temperature Source Oral Pulse Rate 110 H Respiratory Rate 19 H Blood Pressure 110/84 H Blood Pressure Mean 92 Pulse Ox 99 MDM MDM MDM Narrative Medical decision making narrative: Regarding her shortness of breath, differential diagnosis includes but not limited to pneumonia versus pneumothorax versus pulmonary embolism. I have very low suspicion for pulmonary embolism because she does not have any risk factors, no leg swelling, and her oxygen saturation is 99% on room air. Her tachycardia has longstanding for which she wore a Holter monitor. Additionally her Wells score is low. Regarding her diarrhea, differential diagnosis includes but not limited to C. difficile versus diverticulitis versus gastroenteritis versus inflammatory bowel disease versus IBS. Also included would be partial small bowel obstruction given her past surgical history. Comprehensive workup was pursued. I will also check her for dehydration, and pancreatitis, but a lot of her pain is lower and she is not really vomiting. I reviewed the laboratory work from today and she has a normal white count of 6.6 with hemoglobin normal at 12.4, platelet count normal at 314. CMP is remarkable for a low AST of 9, but normal sodium and potassium, BUN normal at 9 and creatinine 0.67. No evidence of dehydration. Serum test is negative. Lipase 26. EKG obtained and interpreted by myself independently as normal sinus rhythm at 79 bpm without ectopy or acute ST changes. No STEMI. Her CT of the abdomen and pelvis is pending. Upon repeat examination at approximately 8:20 AM, she is resting comfortably on the cot. I do suspect more that she may have undiagnosed inflammatory bowel disease versus irritable bowel syndrome. I do feel that she should follow-up with gastroenterology. She was referred to Dr. Zaldivar. She will be given Bentyl for her pain if she has a normal CT that does not show any obstruction. I reviewed the radiology report of the CT of the abdomen and pelvis and there is no acute process. Chest x-ray in 1 view interpreted by myself independently shows no evidence of an acute process. I think that the shortness of breath may be secondary to her abdominal pain. At this point in time, I feel she can be discharged to follow-up with her primary care provider and/or gastroenterology. Return instructions to the emergency department were reviewed. Disposition is discharged home in stable condition. History & Record Review Discussion w/independent historian: Patient Additional record(s) reviewed:: Prior ED visit Lab Data Attestation: I reviewed the patient's lab results. Labs: Laboratory Results - last 24 hr 11/02/24 07:45 WBC 6.6 RBC 4.07 L Hgb 12.4 Hct 36.2 L MCV 88.9 MCH 30.5 MCHC 34.3 RDW Std Deviation 41.7 RDW Coeff of Anthony 12.7 Plt Count 314 MPV 9.9 Immature Gran % (Auto) 0.500 Neut % (Auto) 63.4 Lymph % (Auto) 24.1 [place] % (Auto) 8.5 Eos % (Auto) 2.4 Baso % (Auto) 1.1 H Absolute Neuts (auto) 4.2 Absolute Lymphs (auto) 1.59 Nucleated RBC % 0 Sodium 139 Potassium 3.6 Chloride 106 Carbon Dioxide 27.0 Anion Gap 5 BUN 9 Creatinine 0.67 Estim Creat Clear Calc 109.87 Est GFR (MDRD) Af Amer 143 Est GFR (MDRD) Non-Af 118 BUN/Creatinine Ratio 13.5 Glucose 90 Calcium 9.2 Total Bilirubin 0.60 AST 9 L ALT 18 Alkaline Phosphatase 100 Total Protein 7.4 Albumin 3.4 Globulin 4.0 Albumin/Globulin Ratio 0.8 L Lipase 26 Serum , Qual NEGATIVE Radiography Diagnostic Testing: Clinical Impression(s) from Imaging Studies Chest X-Ray 11/02/24 07:55 IMPRESSION: No acute radiographic abnormalities. Electronically Signed: Kristopher Weems MD at 8:15 EST , Abdomen/Pelvis CT 11/02/24 08:15 IMPRESSION: No acute abnormalities in the abdomen or pelvis. Electronically Signed: Kristopher Weems MD at 8:40 EST , Discharge Plan Triage Chief Complaint: Diarrhea ED Provider: Corby Gastelum Dx/Rx/DC Orders Clinical Impression: Abdominal pain, Diarrhea Instructions: ED Abdominal Pain Unkn Cause Fem, ED Diarrhea, Unknown Cause Prescriptions: New dicyclomine 20 mg tablet 20 mg PO TID PRN (Reason: abdominal pain) Qty: 20 0RF No Action NK Primary Care Provider: Zach Good Referrals: Zach Good DO [Primary Care Provider] - 3-5 Days if not improving Alan Zaldivar DO [Med Staff - Active Staff] - As soon as possible Activity Restrictions/Additional Instructions: Return with fever, increased pain, new or worsening symptoms. Follow-up with your primary care provider. You have been referred to gastroenterology as well. Print Language: Sinhala Disposition Disposition: Home, Self Care
--- NOTE | 2024-11-02 07:55 | RAD_ITS ---
INDICATION: Shortness of breath EXAMINATION/TECHNIQUE: X-RAY - XR Chest 1 View COMPARISON: 08/31/2024. FINDINGS: The lungs are clear. The cardiomediastinal silhouette is unremarkable. No pleural effusion or pneumothorax. No acute osseous abnormalities. RAD/Chest 1 View (Portable) IMPRESSION: No acute radiographic abnormalities. Electronically Signed: Kristopher Weems MD at 8:15 EST ,
[2024-11-02 07:56] LABS: Absolute Lymphocyte Count 1.59 X10^3/uL (0.83-4.51); Absolute Neutrophil Count 4.2 X10^3/uL (2.0-7.7); Basophil# 0.07 X10^3/uL; Basophil% 1.1 % (0-1); Eosinophil# 0.16 X10^3/uL; Eosinophils% 2.4 % (0-5); Hematocrit 36.2 % (37-47); Hemoglobin 12.4 g/dL (12.0-15.0); Lymphocyte # 1.59 X10^3/ul (0.83-4.51); Lymphocyte % 24.1 % (19-41); Mean Corp Hgb Conc 34.3 g/dL (32-36); Mean Corpuscular Hgb 30.5 pg (27.0-32.0); Mean Corpuscular Volume 88.9 fL (81-99); Mean Platelet Vol. 9.9 fl (6.2-12.0); Monocyte# 0.56 X10^3/uL; Monocyte% 8.5 % (0-10); NRBC Flagged by Analyzer 0 % (0-5); Neutrophil % 63.4 % (47-70); Platelet Count 314 K/mm3 (150-450); RBC Distribution Width CV 12.7 % (11.6-14.6); RBC Distribution Width SD 41.7 fl (35.1-43.9); Red Blood Count 4.07 M/mm3 (4.2-5.4); White Blood Count 6.6 K/mm3 (4.4-11.0)
[2024-11-02 08:07] LABS: Internal QC Validated? YES +Cl - CLEAR BKGD; Pregnancy, Serum, hCG Quali. NEGATIVE Negative
[2024-11-02 08:11] LABS: ALB/GLOB Ratio 0.8 RATIO (0.9-2.4); AST(SGOT) 9 U/L (15-37); Alanine Aminotransfer ALT/SGPT 18 U/L (13-56); Albumin, Serum 3.4 g/dL (3.2-5.0); Alkaline Phosphatase 100 U/L (45-117); Anion Gap 5 (5-15); BUN 9 mg/dL (7-18); BUN/Creat Ratio 13.5 RATIO (10-20); Calcium,Total 9.2 mg/dL (8.5-10.1); Chloride 106 mmol/L (98-107); Creatinine, Serum 0.67 mg/dL (0.55-1.02); EST Glomerular Filtration Rate 118 mL/min (>60); Est Glom Filt Rate - Afr Amer 143 mL/min (>60); Estimated Creatinine Clearance 109.87 ml/min; Glucose 90 mg/dL (74-106); Lipase 26 U/L (13-75); Potassium 3.6 mmol/L (3.5-5.1); Protein, Total 7.4 g/dL (6.4-8.2); Sodium Level 139 mmol/L (136-145)
--- NOTE | 2024-11-02 08:15 | CT_ITS ---
INDICATION: Bilateral lower quadrant abdominal pain, diarrhea EXAMINATION: CT Abdomen And Pelvis W/ Contrast Injection TECHNIQUE: Helically acquired images were obtained of the abdomen and pelvis after IV contrast. A radiation dose optimization technique was used for this scan. IV Contrast dosage and agent: IV 75mL [id number]-[id number] Oral contrast: None. COMPARISON: None. FINDINGS: Visualized lung bases: Unremarkable Liver: Unremarkable Gallbladder: Unremarkable Spleen: Unremarkable Pancreas: Unremarkable Adrenal Glands: Unremarkable Kidneys: Unremarkable Vasculature: Unremarkable GI Tract: The appendix is surgically absent. Lymphadenopathy: None Peritoneum: No ascites. Bladder: Unremarkable Reproductive organs: Unremarkable Bones/Soft tissues: No suspicious osseous or soft tissue lesions CT/Abdomen/Pelvis W IV Cont ONLY IMPRESSION: No acute abnormalities in the abdomen or pelvis. Electronically Signed: Kristopher Weems MD at 8:40 EST ,
[2024-11-02] MEDS: Dicyclomine 10 MG Capsule 20 MG PO (09:06)
[2024-11-02 09:09] VITALS: BP 115/84; PULSE 83; RESP 16; TEMP 36.8; O2SAT 100
== END 2024-11-02 09:10 | disposition home or self-care (01) ==
PROVIDERS: Emergency Provider Emergency Medicine; PCP Internal Medicine; Visit Provider Emergency Medicine
DX: R10.30 Lower abdominal pain, unspecified (principal); R19.7 Diarrhea, unspecified; R06.02 Shortness of breath; F17.210 Nicotine dependence, cigarettes, uncomplicated
CPT/HCPCS: 71045; 74177; 80053; 83690; 84703; 85025; 93005; 99283; Q9967; A4216

== ENCOUNTER 2024-12-03 10:49 | Emergency (ER) | payer MEDICAID, SELFPAY ==
[2024-12-03 10:49] VITALS: BP 109/74; PULSE 109; RESP 22; TEMP 36.6; O2SAT 98
--- NOTE | 2024-12-03 11:35 | EDS_ITS ---
HPI <CHELSIE Anderson - Last Filed: 12/03/24 12:38> History of Present Illness Chief Complaint: Fever Narrative Narrative: Patient is a 19-year-old female with history of chronic abdominal pain who presents to the emergency department for cough, congestion, fever and chills over the last 4 days. Patient that she saw her PCP 2 days ago, however they were more focused on her abdominal pain that is chronic and had multiple lab studies done. Patient think she might have the flu and is here for evaluation. PFSH <CHELSIE Anderson - Last Filed: 12/03/24 12:38> PFSH Medical History Abscess Anorexia PTSD (post-traumatic stress disorder) Depression Headache Vaginal cyst Home Medications ?Medication ?Instructions ?Recorded ?Last Taken ?Type NK 09/26/24 Unknown History dicyclomine 20 mg tablet 20 mg PO TID PRN abdominal p ain 11/02/24 Unknown Rx #20 tabs Allergy/AdvReac Type Severity Reaction Status Date / Time sulfamethoxazole (From AdvReac Mild Vomiting Verified 12/03/24 10:50 Bactrim) trimethoprim (From Bactrim) AdvReac Mild Vomiting Verified 12/03/24 10:50 Surgical History History of appendectomy History of appendectomy Social History household members: significant other Smoking Status: Heavy Smoker (>10/day) alcohol intake: former substance use type: former substance user Date of last use: Marijuana ROS <CHELSIE Anderson - Last Filed: 12/03/24 12:38> ROS ED ROS Narrative Constitutional: Negative forw eight loss. Positive fever chills weakness Eyes: Negative for vision loss, vision change, double vision ENT: Negative for any sore throat, ear pain, congestion Cardiovascular: Negative for any chest pain, tightness, palpitations Respiratory: Negative for any sputum production, hemoptysis, dyspnea, dyspnea on exertion, orthopnea. Positive cough Gastrointestinal: Negative for any abdominal pain, nausea, vomiting, diarrhea, constipation, blood in stool, blood in vomit : Negative for any urinary frequency, dysuria, retention, blood in urine Muscle skeletal: Negative for any neck pain. Positive for back pain Neurological: Negative for any headache, syncope, dizziness Skin: Negative for any rashes, itching, abrasions, lacerations Psychiatric: Negative for any depression, anxiety, stress, suicidal ideation, homicidal ideation Hematologic: Negative for any excessive bruising, easy bleeding EXAM <CHELSIE Anderson - Last Filed: 12/03/24 12:38> Physical Exam Narrative Exam Narrative: Vital signs reviewed. Patient appears to be in no obvious distress. Patient does feel warm to the touch. HEET: Head normocephalic atraumatic, TMs clear bilaterally. Posterior pharynx i s clear, moist mucous membranes. Nares clear bilaterally. Neck: Supple with no lymphadenopathy or tenderness. No signs of meningismus. Cardiac: Regular rate and rhythm no murmurs gallops or rubs, equal peripheral pulses bilaterally. Respiratory: Lungs clear to auscultation bilaterally. No chest tenderness. Abdomen: Soft, nontender, nondistended. No abdominal bruit or pulsatile masses. No hepatosplenomegaly Extremities: No peripheral edema, no signs of gross trauma or deformity. Active full range of motion of all extremities. Neuro: Cranial nerves II through XII intact, no focal neurological deficits. Skin: Clean dry and intact with no rash, purpura, petechiae, vesicles or pustules. Backs/flank: No CVA tenderness, no midline spinal tenderness, no deformity. Psych: Normal mood and affect. No SI, HI or acute psychosis. Const Vital Signs: 12/03/24 10:49 12/03/24 11:17 Temperature 97.9 F Temperature Source Oral Pulse Rate 109 H Respiratory Rate 22 H Respiratory Effort Normal Non-Labored Blood Pressure 109/74 Blood Pressure Mean 85 Pulse Ox 98 Oxygen Delivery Method Room Air Positive well nourished and well developed General Appearance ED: well developed <Dr. Catalino Keller DO - Last Filed: 12/03/24 12:35> Physical Exam Const Vital Signs: 12/03/24 10:49 12/03/24 11:17 Temperature 97.9 F Temperature Source Oral Pulse Rate 109 H Respiratory Rate 22 H Respiratory Effort Normal Non-Labored Blood Pressure 109/74 Blood Pressure Mean 85 Pulse Ox 98 Oxygen Delivery Method Room Air MDM <CHELSIE Anderson - Last Filed: 12/03/24 12:38> [facility] Treatment and Re-Evaluation :: Differential diagnosis includes however is not limited to: COVID-19, influenza, RSV, community-acquired pneumonia, strep throat, otitis media, sinusitis. Patient appears generally well, vital signs are stable, patient is nontoxic- appearing. Presenting to the emergency department for complaints of ongoing fever for the last 4 days. Patient's physical examination yields no red flag signs, no signs or symptoms of any bacterial infection. Patient was given ibuprofen 600 mg, as well as a COVID-19 influenza RSV swab. Patient's COVID-19 influenza RSV swab was positive for influenza A and COVID-19. Patient is currently at the window for any Tamiflu. Patient be given a work note. She is instructed to take ibuprofen and Tylenol to maintain hydration. She is happy the plan of care, all questions answered, stable for discharge <Dr. Catalino Keller DO - Last Filed: 12/03/24 12:35> [facility] Narrative Medical decision making narrative: I have personally performed a face to face assessment of the patient and have reviewed the NATALIE Note. I performed a substantive portion of the visit including all aspects of the following. My maki findings include: History is [patient presents to the emergency department with complaint of fever and cough x 4 days. 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 She has had multiple sick children at the daycare that they have gone home with fevers. Patient no significant medical history. Cough mostly nonproductive. Fever at home up to 103.] Exam is [HEENT-PERRLA, EOMI. Cranial nerves II through XII grossly intact. TMs clear. Mucous membranes moist. No adenopathy. Cardiovascular-regular rate and rhythm without murmur or ectopy Lungs-clear to auscultation, chest wall stable without crepitus or subcu emphysema Abdomen-normoactive bowel sounds, soft, nontender, no rebound or rigidity, no peritoneal signs. Extremities-intact ?4, normal range of motion, normal pulses, atraumatic] Medical Decison Making [patient presents with fever and URI symptoms. Clinically looks well. Will obtain testing for COVID flu and RSV.] Patient was positive for influenza A as well as COVID-19. She does not meet criteria for Tamiflu as she has had symptoms for 4 days. Patient also has not been immunized against COVID and is otherwise young and healthy and does not require any oral treatments for COVID. Advised to return if increased difficulty breathing or condition worsen anyway. She works in a daycare and she is instructed not to return until she is fever free for at least 24 hours. Other additions or changes: [None] Discharge Plan Triage Chief Complaint: Fever ED Midlevel Provider: Junior Ledezma ED Provider: Catalino Keller Dx/Rx/DC Orders Clinical Impression: Influenza A, COVID-19 Instructions: Coronavirus Disease 2019 (COVID-19): Caring for Yourself or Others, ED Influenza (Adult) Prescriptions: No Action NK dicyclomine 20 mg tablet 20 mg PO TID PRN (Reason: abdominal pain) Qty: 20 0RF Primary Care Provider: Zach Good Referrals: Zach Good DO [Primary Care Provider] - Activity Restrictions/Additional Instructions: Please take Tylenol 1000 mg every 8 hours, can also take ibuprofen 600 mg every 8 hours. Maintain hydration. May return to work after 24 hours with no fever and not taking any fever reducing medicines. Print Language: Georgian Disposition Disposition: Home, Self Care
[2024-12-03] MEDS: Ibuprofen 600 MG Tablet PO (11:41)
[2024-12-03 12:44] VITALS: BP 127/63; PULSE 75; RESP 16; TEMP 36.4; O2SAT 99
== END 2024-12-03 12:44 | disposition home or self-care (01) ==
PROVIDERS: Emergency Provider Emergency Medicine; PCP Internal Medicine; Visit Provider Emergency Medicine
DX: U07.1 COVID-19 (principal); J10.1 Influenza due to other identified influenza virus with other respiratory manifestations; F17.210 Nicotine dependence, cigarettes, uncomplicated; R10.9 Unspecified abdominal pain; G89.29 Other chronic pain
CPT/HCPCS: 87631; 99282

== ENCOUNTER 2024-12-14 05:33 | Emergency (ER) | payer MEDICAID, SELFPAY ==
[2024-12-14 05:33] VITALS: BP 129/75; PULSE 93; RESP 16; TEMP 36.6; O2SAT 96; BMI 22.1
--- NOTE | 2024-12-14 05:41 | EDS_ITS ---
HPI HPI - GI History of Present Illness Chief Complaint: Nausea/Vomiting PFSH PFSH Medical History Abscess Anorexia PTSD (post-traumatic stress disorder) Depression Headache Vaginal cyst Allergy/AdvReac Type Severity Reaction Status Date / Time sulfamethoxazole (From AdvReac Mild Vomiting Verified 12/14/24 05:38 Bactrim) trimethoprim (From Bactrim) AdvReac Mild Vomiting Verified 12/14/24 05:38 Surgical History History of appendectomy History of appendectomy Social History household members: significant other Smoking Status: Heavy Smoker (>10/day) alcohol intake: former substance use type: former substance user Date of last use: Marijuana EXAM Physical Exam Const Vital Signs: 12/14/24 05:33 Temperature 97.9 F Temperature Source Oral Pulse Rate 93 Respiratory Rate 16 Blood Pressure 129/75 H Blood Pressure Mean 93 Pulse Ox 96 Discharge Plan Triage Chief Complaint: Nausea/Vomiting ED Provider: Atilio Darby Dx/Rx/DC Orders Primary Care Provider: Zach Good Referrals: Zach Good DO [Primary Care Provider] - Print Language: St Helen[place]
--- NOTE | 2024-12-14 05:43 | ED.RN ---
Pt states she has an appt with her MD and gastro. Talked about what tests would be done, pt decides to wait for appt with her doctor.
== END 2024-12-14 05:40 | disposition left against medical advice (07) ==
LOC: ED 05:43
PROVIDERS: PCP Internal Medicine
DX: R11.2 Nausea with vomiting, unspecified (principal)
CPT/HCPCS: 99281

== ENCOUNTER 2025-03-09 11:34 | Day surgery (SDC) | payer MEDICAID, SELFPAY ==
[2025-03-09] VITALS (9 sets, daily range): BP systolic 86–117; BP diastolic 60–79; PULSE 75–110; RESP 16–17; TEMP 36.2–37.2; O2SAT 98–100
--- NOTE | 2025-03-09 12:12 | PCM.PRE.AN2 ---
ASA Classification* ASA Classification ASA Classification: 2 Assessment & Plan Anesthesia* Anesthesia Assessment Anesthesia Assessment: Discussed sedation and/or anesthesia options, risks, benefits, and alternatives with patient/parents/legal guardian/POA. Questions invited. The patient/parents/legal guardian/POA seems to understand and agrees to proceed with anesthesia plan. Reviewed the physical assessment, medical history, allergy history and patient home medications list prior to surgery/procedure/anesthetic and documented any changes. Performed airway and anesthesia risk assessments. Anesthesia Type Anesthesia Type: MAC (Hx of subsance abuse) Anesthesia Focused Assessment* Airway Assessment Mouth opens: >3 cm Mallampati Score: II Focused Labs Anesthesia Preop lab: CBC WBC 6.6 K/mm3 (4.4-11.0) 11/02/24 07:45 11/02/24 RBC 4.07 M/mm3 (4.2-5.4) L 11/02/24 07:45 11/02/24 Hgb 12.4 g/dL (12.0-15.0) 11/02/24 07:45 11/02/24 Hct 36.2 % (37-47) L 11/02/24 07:45 11/02/24 Plt Count 314 K/mm3 (150-450) 11/02/24 07:45 11/02/24 CHEMISTRY Potassium 3.6 mmol/L (3.5-5.1) 11/02/24 07:45 11/02/24 Sodium 139 mmol/L (136-145) 11/02/24 07:45 11/02/24 Magnesium 2.0 mg/dL (1.6-2.6) 09/26/24 06:55 09/26/24 BUN 9 mg/dL (7-18) 11/02/24 07:45 11/02/24 Creatinine 0.67 mg/dL (0.55-1.02) 11/02/24 07:45 11/02/24 Glucose 90 mg/dL (74-106) 11/02/24 07:45 11/02/24 TSH 2.790 uIU/mL (0.358-3.740) 09/26/24 06:55 09/26/24 COAG HCG, Quant 40712 mIU/mL (1-3) H 02/04/23 21:30 02/04/23 Urine Test Negative Negative 04/28/24 11:40 04/28/24 Pre-Assessment Diagnosis/Proposed Procedure Planned Operative Procedure(s): EXCISION LEFT LABIAL CYST Anesthesia History Anesthesia History - prescription clerk lenses: Anesthesia History - prescription clerk lenses Hx Hospitalization No 03/03/25 11:04 Any Problems With Anesthesia No 03/03/25 11:04 Cholinesterase deficiency No 03/03/25 11:04 You/Your Family Experience No 03/03/25 11:04 fever (hyperthermia) with Relationship Recent Exposure to Contagious Disease Does patient have nerve No 03/03/25 11:04 stimulator Patient instructed to have device shut off --Does patient have Pacemaker or ICD? When Was Last Pacemaker Check QUESTION #4 FULL TEXT: You/Your Family Experience fever (hyperthermia) with Anesthesia Last Oral Intake Last Oral intake: Last Oral Intake NPO since Meds taken in AM with sips of water? Meds patient instructed to take am of surgery PONV PONV - prescription clerk lenses: PONV - prescription clerk lenses Female Yes 03/03/25 11:04 HX of Motion Sickness No 03/03/25 11:04 HX of N/V After Surgery No 03/03/25 11:04 Non-Smoker Yes 03/03/25 11:04 Duration of Surgery greater No 03/03/25 11:04 than 60 minutes Number of Risk Factors 2 03/03/25 11:04 PONV Score Moderate Risk 03/03/25 11:04 Height & Weight Height & Weight: Anesthesia: Height & Weight Height 5 ft 3 in 12/14/24 05:33 Respiratory Assessment Respiratory Assessment - prescription clerk lenses: Respiratory Tract Infection Hx - prescription clerk lenses Hx Respiratory Tract Infection No 03/03/25 11:04 STOP Sleep Apnea STOP Sleep Apnea - prescription clerk lenses: STOP Sleep Apnea - prescription clerk lenses Hx Hypertension No 03/03/25 11:04 Hx Sleep Apnea No 03/03/25 11:04 CPAP BIPAP Do you snore loudly (louder Yes 03/03/25 11:04 than talking or can be heard Do you often feel tired/ Yes 03/03/25 11:04 fatigued/ sleepy during daytime? Has anyone observed you stop Yes 03/03/25 11:04 breathing during sleep? STOP Results Positive 03/03/25 11:04 QUESTION #5 FULL TEXT : Do you snore loudly (louder than talking or can be heard through closed doors)? Tobacco Use History Tobacco Use History - prescription clerk lenses: Tobacco Use History - prescription clerk lenses Tobacco Use Smoking Status Current every day smoker 03/03/25 11:04 Hx Tobacco Use Yes 03/03/25 11:04 Years Smoking Packs Smoked per Day Smoking Cessation Date was within the last 15 years Hx Smoking Cessation Date Hx Smoking Cessation Counseling Hematologic Medial History Hematologic Hx - prescription clerk lenses: Hematologic Medical Hx - smoke inspector Hx of Blood Transfusion No 03/03/25 11:04 Hx of Transfusion in last 3 No 03/03/25 11:04 Months Date of Last Transfusion (if within last 3 months) Ever experience any problems No 03/03/25 11:04 with transfusion(s)? Specify any problems Hx of Preganancy in last 3 No 03/03/25 11:04 Months Nurse Filling Out Transfusion DSCHRIBER 03/03/25 11:04 & Questions: Date: 03/03/25 03/03/25 11:04 Time: 11:06 03/03/25 11:04 Patient unable to answer at this time (ie. confused, unrespo /Reproduction History /Reproductive History - prescription clerk lenses: /Reproductive Hx- prescription clerk lenses Hx Now No 03/03/25 11:04 Gestational Age (in weeks): EDC: Hx Hx Para Hx Section SAB No 03/03/25 11:04 Active Medications Active Medications: Current Medications Generic Name Dose Route Start Last Admin Trade Name Freq PRN Reason Stop Dose Admin Lactated Ringer's 1,000 mls @ 15 mls/hr 03/09/25 11:45 IV .Q48H LIBERTAD PFSH Medical History Substance abuse Alcohol use Restless legs Stomach discomfort Vapes nicotine containing substance History of pain when walking Tachycardia Anorexia PTSD (post-traumatic stress disorder) Depression Allergy/AdvReac Type Severity Reaction Status Date / Time sulfamethoxazole (From AdvReac Mild Vomiting Verified 03/03/25 11:03 Bactrim) trimethoprim (From Bactrim) AdvReac Mild Vomiting Verified 03/03/25 11:03 Surgical History Hx of removal of cyst History of appendectomy Social History household members: significant other Smoking Status: Current every day smoker tobacco type: e-cigarettes alcohol intake: former substance use type: former substance user Date of last use: Marijuana Review of Systems (Anesthesia) ROS Narrative System reviewed and no additional complaints, except as documented.
[2025-03-09 12:16] LABS: Internal QC Validated? YES +Cl - CLEAR BKGD; Pregnancy, Urine Negative Negative
[2025-03-09] MEDS: Lactated Ringers 1,000 ML 15 ML IV (12:22)
[2025-03-09 12:30] LABS: Hematocrit 38.7 % (37-47); Mean Corp Hgb Conc 33.6 g/dL (32-36); Mean Corpuscular Hgb 30.6 pg (27.0-32.0); Mean Corpuscular Volume 91.1 fL (81-99); Mean Platelet Vol. 10.4 fl (6.2-12.0); Platelet Count 342 K/mm3 (150-450); RBC Distribution Width CV 13.1 % (11.6-14.6); RBC Distribution Width SD 43.9 fl (35.1-43.9); Red Blood Count 4.25 M/mm3 (4.2-5.4); White Blood Count 7.4 K/mm3 (4.4-11.0)
--- NOTE | 2025-03-09 13:20 | CYST_PTH ---
PATIENT: JEWELL LOUIS [place] [facility] [id number] AGE/SX: 19/F ROOM: RE03/09/[address]: Dr. Chastity Valladares DO : 2005 BED: DIS: 03/09/2025 SPEC #: [id number] RECD: 03/09/25 18:05 STATUS: VICTORIA RELavon #: [id number] RUI: 03/09/25 13:[address]: Chastity Valladares DEPT: SURGICAL PATHOLOGY RECD BY: Bishnu Pope ENTERED: 03/10/25 08:44 SP TYPE: Cyst OTHR DR: Dr. Zach Good, Tissues: A - CYST Procedures: Surgery Specimen Level III HEADER OPERATION: Excision, left labial cyst PRE-OP DIAGNOSIS: Labial cyst TISSUE SUBMITTED: A- Labial cyst MICROSCOPIC DIAGNOSIS A. Left labium, cyst, excision: * Benign cyst, ruptured and inflamed, with focal residual mucin cell lining. MICROSCOPIC DESCRIPTION Slides are reviewed. GROSS DESCRIPTION A. Received in formalin in a container labeled with the patient's name, date of , and labial cyst are 2 foreman-brown, irregular, rubbery fragments of soft tissue measuring 1.3 x 1.0 x 0.7 cm and 2.7 x 1.9 x 1.8 cm. The outer surfaces are roughened with no distinct skin. Serial sections of the largest fragment reveal a 1.2 x 1.2 x 0.8 cm cystic structure filled with foreman, semitranslucent, gelatinous material. The inner lining appears smooth and glistening. The remaining cut surfaces of each fragment are white-thompson and smooth. Corporate Counsel sections of each are submitted in A1-2. [facility] 03-10-2025 CPT:69259
[2025-03-09] MEDS: Lidocaine 1%/Epi 1:200 (30ml) 30 ML AMPUL (14:39)
--- NOTE | 2025-03-09 15:41 | DCINST_ITS ---
Discharge Instructions Diet Discharge Diet: No restrictions DC O2, CPAP, BIPAP needs Home O2 Discharge instructions: No Dressing / Incision Discharge Activity: May Drive (once you are no longer taking pain medication and more than 24 hours out from surgery), May Shower and May Take a Tub Bath (once you are 3 days out from surgery. Take sitz bath and soak nightly) May resume sexual activity in: 4 weeks (nothing in the vagina) Ice area for (Minutes): 15 Weight Bearing Status: Weight bearing as tolerated Lifting Restrictions: as tolerated Dressing / Incision Call your doctor if your incision/area has: Continuous Slow Oozing, Sudden Increased Bleeding, Increased Pain/ Swelling, Increased Redness, Foul Smelling Discharge and Swelling at the incision site Call your doctor if you observe: Fever of 101 or Higher, Using more than 1 pad per hour, Dizziness, Chest pain, Calf discomfort and Uncontrolled pain Cleanse incision/area with: Soap & Water Additional Dressing/Incision Instructions:: Pat dry or dry with blow dryer. Do not rub the incision site. Keep the area clean and dry. Go underwear free when you can. Wear loose fitted clothing and change your pads regularly. Take nightly sitz bath once you are more than 3 days post op. Ice as needed Follow Up Care Please Follow Up With: Chastity Valladares DO When: 1 week Test Results: Test results from this visit will be discussed in further detail at your follow- up appointment, if applicable. Discharge Plan Admission Primary Reason for Your Visit: surgery Attending Provider: Chastity Valladares Primary Care Provider: Zach Good Instructions Print Language: Serbian Discharge Orders/Prescriptions Prescriptions: New docusate sodium [Colace] 100 mg capsule 100 mg PO BID Qty: 30 0RF oxycodone 5 mg tablet 5 mg PO Q6H PRN (Reason: pain) 7 Days Qty: 5 0RF ibuprofen 600 mg tablet 600 mg PO Q6H PRN (Reason: pain) Qty: 30 0RF acetaminophen [Pain Relief (acetaminophen)] 325 mg tablet 650 mg PO Q6H PRN (Reason: pain) Qty: 30 0RF Referrals / Follow Up: Zach Good DO [Primary Care Provider] - Disposition Disposition (needs filled in before D/C Order can be placed): Home, Self Care
--- NOTE | 2025-03-09 15:43 | PCM.POST.ANE ---
Anesthesia: Postop Eval I Current Vital Signs Temperature: 97.2 F Pulse Rate: 110 Blood Pressure: 96/71 Respiratory Rate: 16 Pulse Ox: 99 Assessment Airway patent: Yes Spontaneous unlabored respirations: Yes nausea: No Vomiting: No Anesthesia Complication: No Fluid Hydration Crystalloid volume administer (ml): 1,000 Total IV fluid infused: 1,000 Progress Note Anesthesia document: Postop Eval 1 completed: Yes
--- NOTE | 2025-03-09 16:13 | POSTOPAN2_ITS ---
Anesthesia Postop Eval I Sum Postop Eval Completion status Anesthesia document: Postop Eval 1 completed: Yes Anesthesia Postop Eval I Summary Anesthesia Postop Eval I Summary: Anesthesia Postop Eval I: Assessment Summary Airway patent Yes 03/09/25 15:43 [email or web address] Spontaneous unlabored Yes 03/09/25 15:43 RN [email or web address] respirations Mental status nausea No 03/09/25 15:43 RN [email or web address] Vomiting No 03/09/25 15:43 [email or web address] Anesthesia Postop Eval I: Fluid Summary Crystalloid volume administer 1,000 03/09/25 15:43 [email or web address] (ml) Colloids volume administered ( ml) Blood Product volume administered (ml) Total IV fluid infused 1,000 03/09/25 15:43 [email or web address] Anesthesia Postop Eval I: Summary Notes Anesthesia Complication No 03/09/25 15:43 [email or web address] Anesthesia Complication Comment: Post-operative progress note Anesthesia: Postop Eval II Evaluation Mental status: Awake Pain Level: 0 nausea: No Vomiting: No
--- NOTE | 2025-03-09 16:13 | PCM.POSTANE2 ---
Anesthesia Postop Eval I Sum Postop Eval Completion status Anesthesia document: Postop Eval 1 completed: Yes Anesthesia Postop Eval I Summary Anesthesia Postop Eval I Summary: Anesthesia Postop Eval I: Assessment Summary Airway patent Yes 03/09/25 15:43 HEEL [email or web address] Spontaneous unlabored Yes 03/09/25 15:43 HEEL [email or web address] [email or web address] respirations Mental status nausea No 03/09/25 15:43 HEEL [email or web address] [email or web address] Vomiting No 03/09/25 15:43 HEEL [email or web address] Anesthesia Postop Eval I: Fluid Summary Crystalloid volume administer 1,000 03/09/25 15:43 HEEL [email or web address] (ml) Colloids volume administered ( ml) Blood Product volume administered (ml) Total IV fluid infused 1,000 03/09/25 15:43 HEEL [email or web address] Anesthesia Postop Eval I: Summary Notes Anesthesia Complication No 03/09/25 15:43 HEEL [email or web address] Anesthesia Complication Comment: Post-operative progress note Anesthesia: Postop Eval II Evaluation Mental status: Awake Pain Level: 0 nausea: No Vomiting: No
--- NOTE | 2025-03-09 16:33 | PCM.OPRPT ---
Problems Associated Problem List Diagnoses (1) Labial cyst: Operative Report (Standard) Operative Information Date of Procedure: 03/09/25 Pre-Operative Diagnosis: Labial cyst Post-Operative Diagnosis: As above Surgery/Procedure Performed: Left labial cyst excision director industrial relations: Yes Government Services Professional: Sade Crawford PGY-3 Tasks completed by first beater: Closing, Hemostasis: Clamp and Retracting Type of Anesthesia: MAC RN Documented Start/Stop Times: Operation Date: 03/09/25 13:20 Case Time Into Pre-Op 03/09/25 11:39 Out of Pre-Op 03/09/25 14:19 Anesthesia Start 03/09/25 14:23 Into Room 03/09/25 14:23 Procedure Start 03/09/25 14:39 Procedure End 03/09/25 15:33 Anesthesia End 03/09/25 15:37 Out of Room 03/09/25 15:37 Into Recovery 03/09/25 15:40 Out of Recovery 03/09/25 16:18 Into Phase II Recovery 03/09/25 16:19 Procedure Start Time: 14:39 Procedure Stop Time: 15:33 Select all DRAINS/GRAFTS/IMPLANTS that apply: None Special Medications: None Estimated Blood Loss: 50 mL Fluids Replaced: See anesthesia record Specimen collected: Yes Description of specimen(s) removed: Labial cyst Description of surgery: The patient was counseled about risk of bleeding, infection, injury to surrounding structures. She was counseled that she could have chronic pain from this surgery. She was also counseled that the entire cyst may not be removed, and there is a risk that she continues to have cysts. The patient reports one prior cyst removal in the OR. She reports multiple I&D's. She states it is interfering with her daily activities, and she continues to miss work due to the cyst. She understands risks of surgery, and desires a surgery for removal. The patient was taken to the OR where MAC anesthesia was induced and found to be adequate. An exam was performed and a left labial cyst was noted to be about 2x3 cm in size and not communicating with the vaginal mucosa. 10 mL of local was infiltrated over the cyst. An incision was made over the cyst using a scalpel. The cyst was grasped with an Allis clamp, and the skin was retracted using Allis clamps. The cyst was excised using a combination of sharp dissection with Metzenbaum scissors, and blunt dissection to lyse the filmy adhesions between the cyst wall and the subcutaneous tissue of the labia majora. Two figure of eight sutures were placed using 3-0 Vicryl during dissection, along with the Bovie cautery, to achieve hemostasis. The cyst was removed intact and sent to pathology for review. Hemablast was used over the bed of where the cyst was removed. 3-0 Vicryl was then used to close off the space, and several interrupted stitches were placed to do so. The skin was then closed using several interrupted stitches of 4-0 Vicryl. There was no bleeding at the end of the case. A vaginal sweep was performed. Sponge, sharp and instrument counts were correct. The patient was taken to the recovery room is good stable condition. Surgical Findings: Left labial cyst Complications Complications: No Admit VTE Documentation VTE Present on Admission: No VTE Mechan Device Prophylaxis: SCD's
== END 2025-03-09 16:59 | disposition home or self-care (01) ==
LOC: SDC 11:34 → AC 11:35
PROVIDERS: PCP Internal Medicine; Referring Provider Obstetrics & Gynecology; Visit Provider Obstetrics & Gynecology
PROC: (CPT 56740; principal; 2025-03-09 13:05)
DX: N90.7 Vulvar cyst (principal); Z90.79 Acquired absence of other genital organ(s); F17.290 Nicotine dependence, other tobacco product, uncomplicated; F12.90 Cannabis use, unspecified, uncomplicated; F32.A Depression, unspecified; F41.9 Anxiety disorder, unspecified
CPT/HCPCS: 56740; 00940; 81025; 85027; 86850; 86900; 86901; 87070; 87075; 87205; 88304

== ENCOUNTER 2025-05-08 19:40 | Emergency (ER) | payer MEDICAID, SELFPAY ==
[2025-05-08 19:41] VITALS: BP 136/84; PULSE 99; RESP 14; TEMP 37; O2SAT 99; BMI 19.8
[2025-05-08 20:44] LABS: Hematocrit 37.8 % (37-47); Hemoglobin 12.8 g/dL (12.0-15.0); Immature Granulocytes Count 0.030 X10^3/uL (0.0-0.0); Mean Corp Hgb Conc 33.9 g/dL (32-36); Mean Corpuscular Volume 90.9 fL (81-99); Mean Platelet Vol. 10.0 fl (6.2-12.0); NRBC Flagged by Analyzer 0 % (0-5); Platelet Count 320 K/mm3 (150-450); RBC Distribution Width CV 12.7 % (11.6-14.6); RBC Distribution Width SD 42.0 fl (35.1-43.9); Red Blood Count 4.16 M/mm3 (4.2-5.4); White Blood Count 9.5 K/mm3 (4.4-11.0)
--- NOTE | 2025-05-08 21:19 | US_ITS ---
PROCEDURE: TRANSVAGINAL W/PREG US 05/08/2025 REASON FOR EXAM: VAGINAL BLEEDING IN TECHNIQUE: TRANSVAGINAL W/PREG US COMPARISON: No FINDINGS Within the uterine cavity, there is a gestational sac and yolk sac. No pole or heart rate. Estimated gestational age of 5 weeks and 5 days by mean sac diameter. Small implant bleed measuring up to 0.7 cm. The right ovary measures 2 x 3 x 4 cm with corpus luteal cyst in good blood flow. The left ovary measures 2 x 2 x 3 cm with good blood flow. Minimal pelvic free fluid. US/Transvaginal w/Preg US IMPRESSION: Intrauterine gestation, approximate ultrasound age of 5 weeks and 5 days by amairani n sac diameter. Viability is not yet determined. Consider follow up imaging. Reading Location: [place] [id number]
[2025-05-08 21:20] LABS: AST(SGOT) 16 U/L (<=31); Alanine Aminotransfer ALT/SGPT 19 U/L (<=34); Albumin, Serum 4.2 g/dL (3.5-5.0); Alkaline Phosphatase 84 U/L (35-104); Anion Gap 11 (5-15); BUN 9 mg/dL (4-19); BUN/Creat Ratio 14.9 RATIO (10-20); Calcium,Total 9.3 mg/dL (7.6-11.0); Carbon Dioxide 22.6 mmol/L (21.0-32.0); Chloride 104 mmol/L (98-108); Estimated Creatinine Clearance 121.80 ml/min (50-250); Globulin 3.1 g/dL (2.2-4.2); Glucose 81 mg/dL (70-99); Lipase 32 U/L (13-75); Potassium 3.5 mmol/L (3.3-5.1)
--- OUTSIDE RECORDS SUMMARY | 2025-05-08 21:31 | XMS RPT_ITS | CCD ---
Author Organization [facility] Care Team Providers Care Business Economist Name Role Phone CONKEY OCCUPATIONAL THERAPY ASSIST, MRS EDWARDS Primary Care Physician SUSANNA PRATT, AMANDA Attending Unavailable TAMAR RENTERIA MD Consulting Unavailable CONKEY OCCUPATIONAL THERAPY ASSIST, MRS EDWARDS Primary Care Unavaileileen TOMAS MD., DR. EHSAN Klein Consulting Unavaileileen LE MD, AMANDA Attending Unavailable CONKEY OCCUPATIONAL THERAPY ASSIST, MRS EDWARDS Primary Care Unavaileileen LE MD, AMANDA Attending Unavailable CONKEY OCCUPATIONAL THERAPY ASSIST, MRS EDWARDS Primary Care Unavaileileen e SUSANNA PRATT, AMANDA Attending Unavailable CONKEY OCCUPATIONAL THERAPY ASSIST, GRACE Primary Care Unavaileileen LE MD, AMANDA Attending Unavailable CONKEY OCCUPATIONAL THERAPY ASSIST, MRS EDWARDS Primary Care Unavaileileen LE MD, AMANDA Attending Unavailable CONKEY OCCUPATIONAL THERAPY ASSIST, MRS FELICIANOHA Primary Care Unavaileileen LE MD, AMANDA Attending Unavailable CONKEY OCCUPATIONAL THERAPY ASSIST, MRS EDWARDS Primary Care Unavailabl e None Primary Care Physician Unavailab le Teatanas, OCCUPATIONAL THERAPY ASSIST Amanda Primary Care Physician NO FAMILY PHYSICIAN, 837 Primary Care Unavail able PAUL RAPP Attending Unavail able NO FAMILY PHYSICIAN, 837 Primary Care Unavail able Aftanas, OCCUPATIONAL THERAPY ASSIST Amanda Primary Care Physician MISSAEL DUONG Referring Unavailable Unavailable Primary Care Provider UnavailWaldo Vivar DO Primary Care Provider Baljit Harvey MD Unavailable Aftanas, OCCUPATIONAL THERAPY ASSIST Amanda Primary Care Physician JOHNSON Collado Attending Unavaila Rory Hensley Attending Unavailab Kristopher Martínez Attending Unava ilable Waldo Good DO Primary Care Provider Yemi Cam MD, Sly Unavailable Baljit Harvey MD Unavailable Yemi Cam MD, Sly Unavailable Neri PRATT, Cristinaalfredo Primary Care Provider Yemi Cam MD, Sly Unavailable LOTMELISSA, MELISSA-ALI Referring Unavailable WIGGERS, WALDO B Primary Care Unavailable KELLEY CHEEMA Attending Unavailable WIGGERS, WALDO B Primary Care Unavailable WIGGERS, WALDO B Primary Care Unavailable WIGGERS, WALDO B Attending Unavailable NERI, SIMRANJOT Primary Care Unavailable BALJIT HARVEY Attending Unavailable JUANCARLOS CHAND Referring Unavailable SLY PRIDE Attending Unavailable WIGGERS, WALDO B Primary Care Unavailable LOTFIAN, MELISSA-ALI Referring Unavailable WIGGERS, WALDO B Primary Care Unavailable Geovanny Cruz Attending Unavailable Wiggers, Waldo Primary Care Unavailable Wiggers, Waldo Primary Care Unavailable Edgar Ross Attending Unavailable Wiggers, Waldo Primary Care Unavailable Ricco Cox Attending Unavailable Catalino Keller Attending Unavailable Wiggers, Waldo Primary Care Unavailable Corby Gastelum Attending Unavailable Wiggers, Waldo Primary Care Unavailable Wiggers, Waldo Primary Care Unavailable Provider, Ed Physician Attending Unavailab Edgar Mascorro Attending Unavailable Wiggers, Waldo Primary Care Unavailable Wiggers, Waldo Primary Care Unavailable Wiswell, Елена Referring Unavailable Jaronwell, Елена Attending Unavailable ABHAY BONE Attending Unavailable WIGGERS, WALDO B Primary Care Unavailable LOTFIAN, MELISSA-ALI Referring Unavailable WIGGERS, WALDO B Primary Care Unavailable MELISSA BIRCH Attending Unavailable WIGGERS, WALDO B Primary Care Unavailable WISWELL, ЕЛЕНА Attending Unavailable NERI, SIMRANJOT Primary Care Unavailable WISWELL, ЕЛЕНА Attending Unavailable NERI, SIMRANJOT Primary Care Unavailable WISWELL, ЕЛЕНА Attending Unavailable NERI, SIMRANJOT Primary Care Unavailable WISWELL, ЕЛЕНА Attending Unavailable NERI, SIMRANJOT Primary Care Unavailable Allergies Allergy Classification Reported Allergen(s) Allergy Type Date of Onset Reaction(s) Facility (20 sources) Sulfamethoxazole / Trimethoprim; Translations: [sulfamethoxazole-t rimethoprim] Drug Allergy 06-10-20 Vomiting (disorder), Vomiting [facility] (6 sources) Sulfonamides (Antibiotic); Translations: [Sulfa Antibiotics] Propensity to adverse reactions 09-07-20 Vomiting [facility] (4 sources) Sulfamethoxazole Drug Allergy 07-03-20 Vomiting [facility] (4 sources) Trimethoprim Drug Allergy 07-03-20 Vomiting [facility] (2 sources) Sulfamethoxazole / Trimethoprim; Translations: [SULFAMETHOXAZOLE-T RIMETHOPRIM] Drug Allergy 06-10-20 [facility] (1 source) Sulfamethoxazole Drug Allergy 03-09-20 [facility] (1 source) Trimethoprim Drug Allergy 03-09-20 [facility] Medications Current Medications Medication Drug Class(es) Dates Sig (Normalized) Sig (Original) acetaminophen 500 mg oral tablet (12 sources) Start: 08-17-2023 acetaminophen (TYLENOL) 500 mg tablet Take by mouth. 08/17/2023 Active Start: 08-17-2023 take 1000 mg by mout h every six hours Acetaminophen Active 1000 MG PO EVERY 6 HOURS 0 August 17, 2023 12:00am betamethasone 0.5 mg/ml / clotrimazole 10 mg/ml topical lotion (5 sources) Azole Antifungal, Corticosteroid Start: 06-26-2023 End: 07-26-2023 clotrimazole-betamethasone (LOTRISONE) lotion Apply to affected area twice daily. 30 mL 0 06/26/2023 07/26/2023 Active Comment on above: Apply to affected area twice daily. cephalexin 500 mg oral capsule (20 sources) Cephalosporin Antibacterial Start: 07-25-2023 End: 06-26-2024 take 1 capsule by mouth four times daily cephALEXin (KEFLEX) 500 mg capsule Take 1 capsule by mouth four times daily for 5 days. 20 capsule 06/21/2024 06/26/2024 Active Start: 07-25-2023 End: 08-15-2023 cephALEXin (KEFLEX) 500 mg c apsule Take 500 mg by mouth. 0 07/25/2023 Active Start: 05-11-2023 take 1 capsule by mo [facility] every twelve hours Cephalexin ([id number] MG) 500 MG CAP Active 500 MG PO EVERY 12 HOURS 07 08May 11, 2023 8:44am Start: 02-18-2023 End: 05-11-2023 take 1 capsule by mouth every six hours Cephalexin ([id number] MG) 250 MG CAP Discontinued 250 MG PO EVERY 6 HOURS 12A,6A,12N,6P 20 February 18, 2023 2:30pm May 11, 2023 8:19am Start: 02-09-2023 End: 07-03-2023 take 500 mg by mouth every six hours Cephalexin Discontinued 500 MG PO EVERY 6 HOURS February 09, 2023 12:00am July 03, 2023 6:21pm Start: 02-15-2018 End: 06-04-2018 take 1 capsule by mouth every eight hours CEPHALEXIN ([id number] MG) 500 MG CAP Discontinued 500 MG PO EVERY 8 HOURS February 15, 2018 3:36pm June 04, 2018 1:20pm Comment on above: Take 500 mg by mouth . docusate sodium 100 mg oral capsule (1 source) Start: 04-07-2022 Colace 100 mg oral capsule Dose : 100 mg = 1 cap(s), Oral, BID, PRN as needed for constipation, # 60 cap(s), 1 Refill(s), [facility] [address], 160, cm, 04/07/22 6:06:00 EDT, Height Start Date: 04/07/22 Status: Ordered docusate sodium 50 mg / sennosides, skilled nursing 8.6 mg oral tablet (12 sources) Start: 08-17-2023 senna-docusate (SENNA-S) 8.6-50 mg per tablet Take by mouth. 08/17/2023 Active Start: 08-17-2023 take 1 tablet by [facility] once daily Sennosides-Docusate Sodium (Stool Softener-Stimulant Laxat) 8.6-50 mg Tablet Active 1 - 2 TABLET PO DAILY August 17, 2023 12:00am escitalopram 5 mg oral tablet (16 sources) Serotonin Reuptake Inhibitor Start: 09-14-2023 End: 12-14-2024 take 1 tablet by mouth once daily escitalopram oxalate (LEXAPRO) 5 mg tablet Indications: Episode of recurrent major depressive disorder, unspecified depression episode severity (HCC) , Anxiety Take 1 tablet by mouth once daily. 90 tablet 09/14/2023 12/14/2024 Discontinued (Discontinued by Patient) End: 05-11-2023 take 1 tablet by mouth once daily Escitalopram Oxalate (LEXAPRO5 MG) 5 MG TAB Discontinued 5 MG PO DAILY May 11, 2023 8:19am Comment on above: Take 1 tablet by alex th once daily. famotidine 20 mg oral tablet (18 sources) Histamine-2 Receptor Antagonist Start: 12-01-2024 End: 12-31-2024 take 1 tablet by mouth once daily at bedtime famotidine (PEPCID) 20 mg tablet Indications: Stomach pain Take 1 tablet by mouth daily at bedtime. 30 tablet 12/01/2024 12/31/2024 Active Start: 07-13-2023 End: 06-21-2024 take 1 tablet by mouth twice daily famotidine (PEPCID) 20 mg tablet Take 1 tablet by mouth twice daily. 60 tablet 1 07/13/2023 06/21/2024 Discontinued Comment on above: Take 1 tablet by alex twice daily. ferrous sulfate 325 mg oral tablet (4 sources) Start: End: take 1 tablet by mouth every other day ferrous sulfate 325 mg (65 mg iron) tablet Indications: Anemia complicating , third trimester Take 1 tablet by mouth every other day. 15 tablet 2 09/14/2023 12/13/2023 Active Comment on above: Take 1 tablet by alex every other day. hydrocortisone acetate 25 mg rectal suppository (1 source) Corticosteroid Start: End: hydrocortisone (ANUSOL-HC) 25 mg suppository 1 Suppository by RECTAL route twice daily. 20 Suppository 1 07/13/2023 07/13/2023 Discontinued (Cost of medication) Comment on above: 1 Suppository by REC YAEL route twice daily. ibuprofen 600 mg oral tablet (8 sources) Nonsteroidal Anti-inflammatory Drug Start: take 600 mg by mouth every six hours Ibuprofen Active 600 MG PO EVERY 6 HOURS 0 August 17, 2023 12:00am Start: 04-07-2022 End: 04-21-2022 IBU 600 mg oral tablet Dose : 600 mg = 1 tab(s), Oral, q6h, X 7 day(s), # 28 tab(s), 1 Refill(s), 04/21/22 8:20:00 EDT, Pharmacy: [facility], 160, cm, 04/07/22 6:06:00 EDT, Height Start Date: 04/07/22 Stop Date: 04/21/22 Status: Ordered End: 09-27-2017 Ibuprofen ([id number] MG) 200 MG CAP Discontinued 200 MG PO NEEDED as needed for PAIN/FEVER September 27, 2017 10:37am oxyCODONE hydrochloride 5 mg oral tablet (2 sources) Opioid Agonist Start: 08-17-2023 take 5-10 mg by mouth every four hours as needed Oxycodone Active 5 - 10 MG PO EVERY 4 HOURS NEEDED 10 August 17, 2023 Start: 04-07-2022 End: 04-10-2022 oxyCODONE 5 mg oral tablet ( IMMEDIATE release ) Dose : 5 mg = 1 tab(s), Oral, q6h, PRN for pain, X 3 day(s), # 12 tab(s), 0 Refill(s), 04/10/22 8:19:00 EDT, Pharmacy: [facility], Postoperative pain, 160, cm, 04/07/22 6:06:00 EDT, Height, 57.5 Start Date: 04/07/22 Stop Date: 04/10/22 Status: Ordered polyethylene glycol 3350 70461 mg powder for oral solution (3 sources) Osmotic Laxative Start: 12-01-2024 End: 12-31-2024 polyethylene glycol 3350 (MIRALAX) 17 gram/dose powder Indications: Stomach pain Take 17 g by mouth as directed. Dissolve dose in 4 - 8 ounces of liquid and take as directed. 510 g 12/01/2024 12/31/2024 Active sertraline 25 mg oral tablet (8 sources) Serotonin Reuptake Inhibitor Start: 12-14-2024 take 1 tablet by mouth once daily sertraline (ZOLOFT) 25 mg tablet Indications: MELISSA (generalized anxiety disorder) Take 1 tablet by mouth once daily. 60 tablet 1 12/14/2024 Active simethicone 80 mg chewable tablet (3 sources) Start: 09-27-2024 End: 10-27-2024 take 1 tablet by mouth every six hours as needed simethicone, chewable (MYLICON) 80 mg chewable tablet Indications: Irritable bowel syndrome without diarrhea Take 1 tablet by mouth every 6 hours as needed. 60 tablet 09/27/2024 10/27/2024 Active Triple Antibiotic Plus topical ointment (1 source) Start: 04-07-2022 End: 04-14-2022 Triple Antibiotic Plus topical ointment Apply 1 eliza, Topical, BID, X 7 day(s), # 15 gram(s), 0 Refill(s), [facility], 160, cm, 04/07/22 6:06:00 EDT, Height, 57.5 Start Date: 04/07/22 Stop Date: 04/14/22 Status: Ordered Completed/Discontinued Medications Medication Drug Class(es) Dates Sig (Normalized) Sig (Original) acyclovir 0.05 mg/mg topical ointment (6 sources) Herpesvirus Nucleoside Analog DNA Polymerase Inhibitor, [...] capsule by mouth every eight hours Amoxicillin ([id number] MG) 500 MG CAP Discontinued 500 MG PO EVERY 8 HOURS September 30, 2022 1:19am November 25, 2022 12:44pm Start: 08-26-2018 End: 01-01-2019 take 1 capsule by mouth every eight hours Amoxicillin ([id number] MG) 500 MG CAP Discontinued 500 MG PO EVERY 8 HOURS August 26, 2018 4:10pm January 01, 2019 11:02am Start: 01-13-2017 End: 03-24-2017 take 1 capsule by mouth every eight hours Amoxicillin ([id number] MG) 500 MG CAP Discontinued 500 MG PO EVERY 8 HOURS January 13, 2017 12:16pm March 24, 2017 4:19pm Start: 04-24-2016 End: 12-08-2016 take 1 tablet by mouth every eight hours Amoxicillin (XUVCJG103 M1) 500 MG TAB Discontinued 500 MG PO EVERY 8 HOURS April 24, 2016 1:15pm December 08, 2016 7:53am Start: 09-08-2015 End: 04-24-2016 take 1 capsule by mouth every eight hours Amoxicillin ([id number] MG) 500 MG CAP Discontinued 500 MG PO EVERY 8 HOURS March 17, 2016 6:11am April 24, 2016 12:53pm Start: 05-29-2015 End: 09-08-2015 take 500 mg by mouth three times daily Amoxicillin ([id number] MG/5 M) 400 MG/5 ML JESUSITA Discontinued 500 MG PO THREE TIMES A DAY May 29, 2015 10:25am September 08, 2015 8:51am End: 09-08-2015 take 1 tablet by mouth every twelve hours Amoxicillin ([id number] M1) 500 MG TAB Discontinued 500 MG PO EVERY 12 HOURS September 08, 2015 8:54am X 10 DAYS brompheniramine maleate 0.4 mg/ml / dextromethorphan hydrobromide 2 mg/ml / pseudoephedrine hydrochloride 6 mg/ml oral solution (7 sources) alpha-Adrenergic Agonist, Uncompetitive K-hksslt-E-aspartate Receptor Antagonist, Sigma-1 Agonist Start: 11-25-2022 End: 11-27-2022 take 1 mL by mouth four times daily as needed for cough Fpaklatznwm-Bzfajtlc-Id (BROMPHENIRAMINE1 LIQ) 1 LIQ Syrup Discontinued 10 ML PO 4 TIMES A DAY NEEDED as needed for COUGH 200 November 25, 2022 1:04pm November 27, 2022 10:44am Start: 08-21-2017 End: 09-27-2017 take 1 mL by mouth every six hours as needed for cough GHBRYQAIGMB-HPIMLTYJ-GZ (BROMFED DM) BPM 2MG-PSE 30MG-DXM 10 MG/ 5ML SYRUP Discontinued 7.5 ML PO Q6H as needed for COUGH/CONGESTION 150 August 21, 2017 8:40am September 27, 2017 10:37am clindamycin 300 mg oral capsule (12 sources) Lincosamide Antibacterial Start: 07-24-2022 End: 08-05-2022 take 1 capsule by mouth three times daily Clindamycin Hcl (Qpgnbycynmy727 MG) 300 MG CAP Discontinued 300 MG PO THREE TIMES A DAY July 24, 2022 12:01pm August 05, 2022 1:03pm Start: 01-12-2019 End: 02-24-2019 take 1 capsule by mouth three times daily Clindamycin Hcl (Fhhabxbtqfo348 MG) 300 MG CAP Discontinued 300 MG PO THREE TIMES A DAY January 12, 2019 7:57pm February 24, 2019 6:46pm 10 DAYS dicyclomine hydrochloride 20 mg oral tablet (8 sources) Anticholinergic Start: 11-02-2024 End: 03-02-2025 take 1 tablet by mouth once daily dicyclomine (BENTYL) 20 mg tablet Take 20 mg by mouth once daily. 11/02/2024 03/02/2025 Discontinued Ethinyl Estradiol / Levonorgestrel (6 sources) Progestin, Estrogen, Progestin-containing Intrauterine Device Start: 08-31-2023 End: 06-21-2024 take 1 tablet by mouth once daily Levonorgestrel-Eth inyl Estrad (ALESSE, 28,) 0.1mg - 20mcg per tablet Indications: Encounter for initial prescription of contraceptive pills , care and examination Take 1 tablet by mouth once daily. 30 tablet 08/31/2023 06/21/2024 Discontinued Start: 08-31-2023 take 1 tablet by alex th once daily Levonorgestrel-Ethinyl Estrad (ALESSE, 28,) 0.1mg - 20mcg per tablet Indications: Encounter for initial prescription of contraceptive pills , care and examination Take 1 tablet by mouth once daily. 30 tablet 11 08/31/2023 Active Comment on above: Take 1 tablet by alex th once daily. hydrocortisone acetate 5 mg/ml / lidocaine hydrochloride 30 mg/ml rectal cream (12 sources) Antiarrhythmic, Corticosteroid, Amide Local Anesthetic Start: 023 End: 024 Lidocaine-Hydrocortis one Ac 3-0.5 % crea by RECTAL route twice daily for 14 days. 7 g 1 07/13/2023 06/21/2024 Discontinued Comment on above: by RECTAL route twic e daily for 14 days. mupirocin 0.02 mg/mg topical ointment (5 sources) RNA Synthetase Inhibitor Antibacterial Start: End: Mupirocin (MUPIROCIN2 %) 2 % OIN Discontinued 1 ELIZA TOP THREE TIMES A DAY 1 September 07, 2022 10:21am September 30, 2022 12:06am nitrofurantoin 100 mg oral tablet (5 sources) Nitrofuran Antibacterial Start: End: take 1 capsule by mouth every twelve hours at mealtime Nitrofurantoin Monohydrate Mac ([id number] MG) 100 MG CAP Discontinued 100 MG PO EVERY 12 HOURS 14 July 22, 2018 1:13pm August 26, 2018 3:15pm WITH FOOD nitrofurantoin, macrocrystals 25 mg / nitrofurantoin, monohydrate 75 mg oral capsule (1 source) Nitrofuran Antibacterial Start: End: take 1 capsule by mouth every twelve hours at mealtime Nitrofurantoin Monohydrate Mac ([id number] MG) 100 MG CAP Discontinued 100 MG PO EVERY 12 HOURS 14 July 22, 2018 1:13pm August 26, 2018 3:15pm WITH FOOD ofloxacin 3 mg/ml otic solution (6 sources) Quinolone Antimicrobial Start: 016 End: Ofloxacin (Otic) (Floxin) 0.3 % CLIFTON Discontinued 0.3 % OT DAILY April 24, 2016 1:15pm December 08, 2016 7:53am 10 DROPS TO LEFT EAR DAILY X7 DAYS ondansetron 4 mg oral tablet (12 sources) Serotonin-3 Receptor Antagonist Start: 023 End: 023 take 1 tablet by mouth every four to six hours as needed for nausea Ondansetron HCl (ONDANSETRON4 M2) 4 MG TAB Discontinued 4 MG PO EVERY 4 TO 6 HOURS NEEDED as needed for nausea February 18, 2023 2:30pm May 11, 2023 8:19am Start: 11-27-2022 End: 07-03-2023 take 1 tablet by mouth every eight hours as needed for nausea Ondansetron (ONDANSETRON ODT4 MG) 4 MG Tablet Disint Discontinued 4 MG PO EVERY 8 HOURS NEEDED as needed for NAUSEA November 27, 2022 11:55am May 11, 2023 8:19am phenazopyridine hydrochloride 100 mg oral tablet (6 sources) Start: 07-22-2018 End: 08-26-2018 take 1 tablet by mouth twice daily after mealtime Phenazopyridine Hcl ([id number] MG) 100 MG TAB Discontinued 100 MG PO TWICE A DAY 4 2 July 22, 2018 1:13pm August 26, 2018 3:15pm after meals predniSONE 10 mg oral tablet (6 sources) Start: 06-04-2018 End: 07-22-2018 take 4 tablets by mouth once daily Prednisone ([id number] MG) 10 MG TAB Discontinued 10 MG PO DIRECTED June 04, 2018 1:53pm July 22, 2018 12:11pm 4 TABS DAILY X2 DAYS, 3 TABS DAILY X2 DAYS, 2 TABS DAILY X2 DAYS, 1 TAB DAILY X2 DAYS PSEUDOEPHED-BROMPHEN -DM (BROMFED DM) BPM 2MG-PSE 30MG-DXM 10 MG/ 5ML SYRUP (3 sources) Start: 08-21-2017 End: 09-27-2017 take 1 mL by mouth every six hours as needed for cough PSEUDOEPHED-BROMPHE N-DM (BROMFED DM) BPM 2MG-PSE 30MG-DXM 10 MG/ 5ML SYRUP Discontinued 7.5 ML PO Q6H as needed for COUGH/CONGESTION 150 August 21, 2017 8:40am September 27, 2017 10:37am triamcinolone acetonide 1 mg/ml topical cream (6 sources) Corticosteroid Start: 09-27-2017 End: 02-15-2018 Triamcinolone Acetonide (TRIAMCINOLON0.1 %) 0.1 % CRE Discontinued 1 ELIZA TOP TWICE A DAY September 27, 2017 10:51am February 15, 2018 3:15pm 7 days valACYclovir 500 mg oral tablet (6 sources) Herpesvirus Nucleoside Analog DNA Polymerase Inhibitor, Herpes Simplex Virus Nucleoside Analog DNA Polymerase Inhibitor, Herpes Zoster Virus Nucleoside Analog DNA Polymerase Inhibitor Start: 03-24-2017 End: 06-18-2017 take 1 tablet by mouth every twelve hours Valacyclovir Hcl ([id number] MG) 500 MG TAB Discontinued 500 MG PO EVERY 12 HOURS 6 March 24, 2017 4:44pm June 18, 2017 5:21pm Problems Active Problems Problem Classification Problem Date Documented Da te Episodic/Chronic Alcohol-related disorders (1 source) Alcohol abuse, uncomplicated; Translations: [ALCOHOL ABUSE, UNCOMPLICATED] Onset: 04-03-2024 Chronic Anxiety disorders (20 sources) Anxiety; Translations: [Anxiety disorder, unspecified] Onset: 06-10-2023 06-10-2023 Chronic Contraceptive and procreative management (1 source) Patient encounter status; Translations: [Encounter for initial prescription of contraceptive pills] 08-31-2023 Episodic Diabetes mellitus without complication (6 sources) Ketonuria; Translations: [Acetonuria] 02-04-2023 Episodic Fluid and electrolyte disorders (5 sources) Dehydration; Translations: [Dehydration] 02-09-2023 Episodic Genitourinary symptoms and ill-defined conditions (7 sources) Bacterial urinary infection; Translations: [Bacteriuria] 02-09-2023 Episodic Hemorrhage during ; abruptio placenta; placenta previa (6 sources) Threatened miscarriage in first trimester; Translations: [Threatened ] 02-04-2023 Episodic Hemorrhoids (1 source) Hemorrhoids; Translations: [Unspecified hemorrhoids] 07-13-2023 Episodic Immunizations and screening for infectious disease (20 sources) Group B Streptococcus carrier; Translations: [Carrier of Group B streptococcus] Onset: 07-07-2023 07-07-2023 Episodic Inflammatory diseases of female pelvic organs (4 sources) Cyst of Bartholin's gland duct; Translations: [Cyst of Bartholin's gland] 07-13-2023 Episodic Mood disorders (20 sources) Recurrent major depressive episodes; Translations: [Major depressive disorder, recurrent, unspecified] Onset: 06-10-2023 06-10-2023 Chronic Nausea and vomiting (2 sources) Nausea with vomiting, unspecified; Translations: [NAUSEA WITH VOMITING, UNSPECIFIED] Onset: 04-03-2024 Episodic Other aftercare (1 source) Other supervisor [employer] (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; Translations: [OTHER PERIODONTIST (CURRENT) DRUG THERAPY] Onset: 04-03-2024 Episodic Other circulatory disease (1 source) Elevated blood-pressure reading without diagnosis of hypertension; Translations: [Elevated blood-pressure reading, without diagnosis of hypertension] 08-05-2023 Episodic Other complications of ; puerperium affecting management of mother (2 sources) disorder; Translations: [Maternal care for (suspected) abnormality and damage, unspecified, not applicable or unspecified] 06-26-2023 Episodic Other complications of (20 sources) Anemia in mother complicating , childbirth AND/OR puerperium; Translations: [Anemia complicating , third trimester] Onset: 08-05-2023 08-05-2023 Chronic Other complications of (5 sources) Hyperemesis gravidarum; Translations: [Mild hyperemesis gravidarum] 02-09-2023 Episodic Other female genital disorders (1 source) Noninflammatory disorder of vulva; Translations: [Other specified noninflammatory disorders of vulva and perineum] Onset: 04-06-2022 Episodic Other female genital disorders (2 sources) Lesion of vulva 04-06-2022 Episodic Other female genital disorders (1 source) Vaginal discharge; Translations: [Other specified noninflammatory disorders of vagina] 11-07-2024 Episodic Other female genital disorders (2 sources) Labial cyst; Translations: [Vulvar cyst] 03-02-2025 Episodic Other female genital disorders (1 source) Vulvar cyst; Translations: [Vulvar cyst] Onset: 03-16-2025 Episodic Other gastrointestinal disorders (1 source) Irritable bowel syndrome; Translations: [Irritable bowel syndrome without diarrhea] 09-27-2024 Chronic Other gastrointestinal disorders (1 source) Irritable bowel syndrome without diarrhea; Translations: [Irritable bowel syndrome without diarrhea] Onset: 09-27-2024 Chronic Other gastrointestinal disorders (1 source) Diarrhea; Translations: [Diarrhea, unspecified] 07-20-2023 Episodic Other nervous system disorders (1 source) Postoperative pain ; Translations: [Other acute postprocedural pain] 08-17-2023 Episodic Other nutritional; endocrine; and metabolic disorders (5 sources) Ketosis; Translations: [Other specified metabolic disorders] 02-09-2023 Chronic Other upper respiratory infections (2 sources) Viral upper respiratory tract infection; Translations: [Acute upper respiratory infection, unspecified] 07-20-2023 Episodic Residual codes; unclassified (1 source) Gestation period, 34 weeks; Translations: [34 weeks gestation of ] 07-13-2023 Episodic Residual codes; unclassified (2 sources) Gestation period, 32 weeks; Translations: [32 weeks gestation of ] 07-04-2023 Episodic Residual codes; unclassified (2 sources) 32 weeks gestation of ; Translations: [ state, incidental] 07-03-2023 Episodic Residual codes; unclassified (3 sources) ultrasound scan abnormal; Translations: [Pyelectasis of fetus on ultrasound] 07-29-2023 Episodic Residual codes; unclassified (1 source) Gestation period, 36 weeks; Translations: [36 weeks gestation of ] 07-29-2023 Episodic Residual codes; unclassified (1 source) Gestation period, 37 weeks; Translations: [37 weeks gestation of ] 08-05-2023 Episodic Residual codes; unclassified (2 sources) Gestation period, 38 weeks; Translations: [38 weeks gestation of ] 08-12-2023 Episodic Residual codes; unclassified (1 source) Gestation period, 35 weeks; Translations: [35 weeks gestation of ] 07-20-2023 Episodic Residual codes; unclassified (1 source) 35 weeks gestation of ; Translations: [ state, incidental] 07-20-2023 Episodic Residual codes; unclassified (1 source) 38 weeks gestation of ; Translations: [ state, incidental] 08-17-2023 Episodic Residual codes; unclassified (1 source) History of uterine scar from previous surgery; Translations: [Other postprocedural status] 08-17-2023 Episodic Residual codes; unclassified (1 source) Tobacco use; Translations: [Tobacco use disorder] 08-17-2023 Episodic Residual codes; unclassified (2 sources) At risk of apnea; Translations: [Other specified personal risk factors, not elsewhere classified] 09-27-2024 Episodic Residual codes; unclassified (2 sources) Postoperative state; Translations: [Other specified postprocedural states] 03-17-2025 Episodic Substance-related disorders (1 source) Nicotine dependence, unspecified, uncomplicated; Translations: [NICOTINE DEPENDENCE, UNSPECIFIED, UNCOMPLICATED] Onset: 04-03-2024 Chronic Unclassified (2 sources) Prolonged heart deceleration; Translations: [Prolonged heart deceleration] 08-15-2023 Unclassified (2 sources) Normal labor; Translations: [Active labor at term] 08-15-2023 Unclassified (2 sources) Spontaneous rupture of membranes; Translations: [Spontaneous rupture of amniotic membranes] 08-15-2023 Unclassified (1 source) Cough, unspecified; Translations: [Cough, unspecified] Onset: 09-28-2024 Unclassified (1 source) Post-Op Visit Onset: 04-03-2025 Past or Other Problems Problem Classification Problem Date Documented Da te Episodic/Chronic Abdominal pain (4 sources) Stomach ache; Translations: [Unspecified abdominal pain] Onset: 05-14-2024 12-05-2024 Episodic Allergic reactions (1 source) Allergy status to sulfonamides status; Translations: [ALLERGY STATUS TO SULFONAMIDES] Onset: 05-14-2023 Episodic Anal and rectal conditions (1 source) Other specified diseases of anus and rectum; Translations: [OTHER SPECIFIED DISEASES OF ANUS AND RECTUM] Onset: 05-11-2023 Episodic Cardiac dysrhythmias (20 sources) Tachycardia; Translations: [Tachycardia, unspecified] Onset: 09-14-2023 09-14-2023 Episodic Fever of unknown origin (2 sources) Fever, unspecified; Translations: [FEVER, UNSPECIFIED] Onset: 05-14-2023 Episodic Malaise and fatigue (20 sources) Tired; Translations: [Other fatigue] Onset: 09-14-2023 09-14-2023 Episodic Other complications of ; puerperium affecting management of mother (20 sources) Suspected disorder; Translations: [Maternal care for (suspected) abnormality and damage, unspecified, not applicable or unspecified] Onset: 06-10-2023 06-10-2023 Episodic Other complications of (1 source) Diseases of the skin and subcutaneous tissue complicating , second trimester; Translations: [DISEASES OF THE SKIN, SUBCU COMP , SECOND] Onset: 05-11-2023 Episodic Other female genital disorders (2 sources) Noninflammatory disorder of vulva and perineum, unspecified; Translations: [Noninflammatory disorder of vulva and perineum, unspecified] Onset: 04-07-2022 Episodic Other gastrointestinal disorders (2 sources) Diarrhea, unspecified; Translations: [Diarrhea] Onset: 11-24-2024 07-20-2023 Episodic Other and delivery including normal (20 sources) First trimester ; Translations: [Encounter for supervision of normal , unspecified, first trimester] Onset: 06-10-2023 02-09-2023 Episodic Residual codes; unclassified (20 sources) Gestation period, 29 weeks; Translations: [29 weeks gestation of ] Onset: 06-10-2023 06-10-2023 Episodic Residual codes; unclassified (20 sources) Nicotine-filled electronic cigarette user; Translations: [Tobacco use] Onset: 06-10-2023 06-10-2023 Episodic Residual codes; unclassified (1 source) Acquired absence of other specified parts of digestive tract; Translations: [ACQUIRED ABSENCE OF OTHER SPECIFIED PARTS OF DIGES] Onset: 05-14-2023 Episodic Residual codes; unclassified (1 source) 20 weeks gestation of ; Translations: [20 WEEKS GESTATION OF ] Onset: 05-11-2023 Episodic Residual codes; unclassified (2 sources) Other specified personal risk factors, not elsewhere classified; Translations: [At risk for obstructive sleep apnea] Onset: 09-27-2024 Episodic Screening and history of mental health and substance abuse codes (20 sources) H/O: psychiatric disorder; Translations: [History of self mutilation] Onset: 06-10-2023 06-10-2023 Episodic Skin and subcutaneous tissue infections (20 sources) Pilonidal cyst with abscess; Translations: [Pilonidal cyst with abscess] Onset: 05-11-2023 06-10-2023 Episodic Substance-related disorders (20 sources) Marijuana user; Translations: [Drug use complicating , unspecified trimester] Onset: 06-10-2023 06-10-2023 Episodic Results Test Name Value Interpretation Reference Range Facility [facility] 04-03-2025 CNCO Letter Text Normal [facility] CNOVon 04-03-2025 CNOV Office Visit (OBGYWM ) -------- TIANNA LOUIS ([id number]) 1 F Date Time Provider Department 04/03/25 2:50 PM ЕЛЕНА VALLADARES OBGYWM During your visit today, we recorded the following information about you: Blood pressure Weight 116/70 50.5 kg Елена Valladares MD 04/03/2025 3:21 PM Signed Test Bore Helper offered: Patient declines. DATE OF SERVICE: 04/03/2025 PROBLEM: Tianna Louis presents for postop visit. SURGERY AND DATE: Labial Cyst Excision 03/09/2025 PATHOLOGY: benign SUBJECTIVE/INTERVAL HISTORY: Tianna Louis is doing well. Denies pain, fevers, chills, vomiting, difficulty with urination or bowel movements. She feels improved overall since surgery, and feels her pain is better. Recently went to a concert and did well without pain. She is happy with results of surgery. SENSITIVE EXAM: The sensitive examination was discussed with the Patient or Patient's Authorized Search Engine Optimization Analyst. As applicable, any other physician, advance practice provider, medical student, or other health professional student that will be observing or involved in the sensitive examination for educational or training purposes was discussed with the Patient or Authorized Search Engine Optimization Analyst. The Patient or Authorized Search Engine Optimization Analyst has agreed to proceed with the sensitive examination. (Sensitive examination includes inspection and/or palpation of the breasts, pelvis, prostate and anorectal regions). OBJECTIVE: VITALS: BP 116/70 Wt 50.5 kg (111 lb 6.4 oz) LMP 03/01/2025 (Approximate) BMI 19.73 kg/m? GENERAL: Pleasant, comfortable PELVIC: Incision site healing well without signs of infection. Sutures remain present. No erythema, swelling, or drainage ASSESSMENT: post op doing well PLAN: Discussed surgery and pathology with patient Healing well Cont pelvic rest for a total of 6 weeks Елена Valladares DO I spent 10 minutes in the visit, with more than 50% of the total [id number] time of the visit in counseling / coordination of care. Allergies As of Date: 04/03/2025 Noted Allergy Reaction BACTRIM (SULFAMETHOXAZOLE-TRIMET H*06/10/2023 11 - Vomiting Date Reviewed: 04/03/2025 Reviewed by: Kenzie Lara MA - Fully Assessed Reason for Visit: Post-Op Visit [1236] Primary Visit Diagnosis:Labial cyst [N90.7] Other Visit Diagnosis:Post-operative state [Z98.890] Prescriptions as of 04/03/2025 - sertraline (ZOLOFT) 25 mg tablet Take 1 tablet by mouth once daily. - senna-docusate (SENNA-S) 8.6-50 mg per tablet Take by mouth. - acetaminophen (TYLENOL) 500 mg tablet Take by mouth. 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] 07/07/2023 Anemia complicating , third trimester *08/05/2023 Tachycardia [R00.0] 09/14/2023 Tiredness [R53.83] 09/14/2023 Palpitations [R00.2] 10/13/2024 Encounter Status:Closed by ЕЛЕНА VALLADARES on 04/03/25 [facility] 03-22-2025 [facility] Telephone (ARESCL) -------- TIANNA LOUIS ([id number]) 1 F Date Time Provider Department 03/22/25 PAVITHRA MESSER During your visit today, we recorded the following information about you: Juan Juarezi 03/22/2025 10:08 AM Signed Patient sent a [facility] message asking for appt with Dr Messer I first set appt 03/24/25 then I noticed she wants appt in April I called patient on 03/22/25 and spoke with her Explained I will set appt with new provider [facility] work call back please Lesa Juarez March 22, 2025 10:08 AM Allergies As of Date: 03/22/2025 Noted Allergy Reaction BACTRIM (SULFAMETHOXAZOLE-TRIMET H*06/10/2023 11 - Vomiting Date Reviewed: 03/16/2025 Reviewed by: Kenzie Lara MA - Fully Assessed Reason for Visit: Appointment [186] Cmt: Set appt with new provider May 2025 Prescriptions as of 03/22/2025 - sertraline (ZOLOFT) 25 mg tablet Take 1 tablet by mouth once daily. - senna-docusate (SENNA-S) 8.6-50 mg per tablet Take by mouth. - acetaminophen (TYLENOL) 500 mg tablet Take by mouth. 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] 07/07/2023 Anemia complicating , third trimester *08/05/2023 Tachycardia [R00.0] 09/14/2023 Tiredness [R53.83] 09/14/2023 Palpitations [R00.2] 10/13/2024 Encounter Status:Closed by LESA JUAREZ on 03/22/25 Normal [facility] CNCOon 03-16-2025 CNCO Letter Text Normal [facility] CNOVon 03-16-2025 CNOV Office Visit (OBGYWM ) -------- TAINNA LOUIS ([id number]) 1 F Date Time Provider Department 03/16/25 3:40 PM ЕЛЕНА VALLADARES OBGYWM During your visit today, we recorded the following information about you: Blood pressure Weight 100/60 50.4 kg Елена Valladares MD 03/17/2025 11:03 AM Signed Test Bore Helper offered: Patient declines. DATE OF SERVICE: 03/16/2025 PROBLEM: Tianna Louis presents for postop visit. SURGERY AND DATE: Vaginal Cyst Excision 03/09/2025 PATHOLOGY: in process. Cultures are negative SUBJECTIVE/INTERVAL HISTORY: Tianna Louis has discomfort and trouble sitting without pain. Pain improves with sitz baths and ice PRN. Has stinging pain and itching. Minimal bleeding. No fevers, chills, drainage. Eating ok. Using the stool softener daily with bowel movements since surgery. No difficulty with urination. SENSITIVE EXAM: The sensitive examination was discussed with the Patient or Patient's Authorized Search Engine Optimization Analyst. As applicable, any other physician, advance practice provider, medical student, or other health professional student that will be observing or involved in the sensitive examination for educational or training purposes was discussed with the Patient or Authorized Search Engine Optimization Analyst. The Patient or Authorized Search Engine Optimization Analyst has agreed to proceed with the sensitive examination. (Sensitive examination includes inspection and/or palpation of the breasts, pelvis, prostate and anorectal regions). OBJECTIVE: VITALS: BP 100/60 Wt 50.4 kg (111 lb 3.2 oz) LMP 03/01/2025 (Approximate) BMI 19.70 kg/m? HEENT: Normocephalic and atraumatic PELVIC: Minimal swelling of the left labia. Incision site well re approximated without erythema, bleeding, or drainage ASSESSMENT: post op doing well PLAN: Discussed surgery with patient. Healing well. Continue daily Sitz baths and ice packs PRN. RTO 2 weeks for follow up. Letter for work given. Елена Valladares DO Allergies As of Date: 03/16/2025 Noted Allergy Reaction BACTRIM (SULFAMETHOXAZOLE-TRIMET H*06/10/2023 11 - Vomiting Date Reviewed: 03/16/2025 Reviewed by: Kenzie Lara MA - Fully Assessed Reason for Visit: Post-Op Visit [1236] Primary Visit Diagnosis:Post-operative state [Z98.890] Prescriptions as of 03/17/2025 - sertraline (ZOLOFT) 25 mg tablet Take 1 tablet by mouth once daily. - senna-docusate (SENNA-S) 8.6-50 mg per tablet Take by mouth. - acetaminophen (TYLENOL) 500 mg tablet Take by mouth. 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 Follow-up and Disposition History for Encounter Date Provider Department Center 03/16/2025 [id number]-PUVOSPSЕЛЕНА VALLADARES Encounter Status:Closed by ЕЛЕНА VALLADARES on 03/17/25 [facility], Anaerobic Any Sourc jen 05-28-2025 CUAN UNK UNK LABIAL CYST No growth in 5 days. Normal [facility] Comment on above: Performed By: #### L 349.9000, M100.3000, M100.4001, M100.2000 #### [facility] [address] [place], [address] Gram Stainon 03-10-2025 GS Positive Normal [facility] Comment on above: Performed By: #### L 349.9000, M100.3000, M100.4001, M100.1999 #### [facility] [address] [place], [address] Wound Cultureon 03-10-2025 WC UNK UNK LABIAL CYST No growth aerobically. Normal [facility] Comment on above: Performed By: #### L 349.9000, M100.3000, M100.4001, M100.1999 #### [facility] [address] [place], [address] AFB Stain AND Cytologyon ACID FAST STAIN Normal [facility] Comment on above: Order Comment: Comme nts: LABIAL CYST Result Comment: INCO RRECT ORDER. PLEASE REFER TO PATHOLOGY [id number] A Performed By: #### L 349.9000, M100.3000, M100.4001, M100.2000 #### [facility] [address] [place], [address] CYTOLOGY,BF/CSF Normal [facility] Comment on above: Order Comment: Comme nts: LABIAL CYST Result Comment: INCO RRECT ORDER. PLEASE REFER TO PATHOLOGY [id number] A Performed By: #### L 349.9000, M100.3000, M100.4001, M100.1999 #### [facility] [address] [place], [address] CBC-Complete Blood Cnt No Di ffon 03-09-2025 Erythrocyte distribution width (RBC) [Ratio] 13.1 % Normal 11.6-14.6 [facility] Comment on above: Performed By: #### L 349.9000, M100.3000, M100.4001, M100.1999 #### [facility] [address] [place], [address] Hematocrit (Bld) [Volume fraction] 38.7 % Normal 37-47 [facility] Comment on above: Performed By: #### L 349.9000, M100.3000, M100.4001, M100.1999 #### [facility] [address] [place], [address] Hemoglobin (Bld) [Mass/Vol] 13.0 g/dL Normal 12.0-15.0 [facility] Comment on above: Performed By: #### L 349.9000, M100.3000, M100.4001, M100.1999 #### [facility] [address] [place], [address] MCH (RBC) [Entitic mass] 30.6 pg Normal 27.0-32.0 [facility] Comment on above: Performed By: #### L 349.9000, M100.3000, M100.4001, M100.1999 #### [facility] [address] [place], [address] MCHC (RBC) [Mass/Vol] 33.6 g/dL Normal 32-36 [facility] Comment on above: Performed By: #### L 349.9000, M100.3000, M100.4001, M100.1999 #### [facility] [address] [place], [address] MCV (RBC) [Entitic vol] 91.1 fL Normal 81-99 [facility] Comment on above: Performed By: #### L 349.9000, M100.3000, M100.4001, M100.1999 #### [facility] [address] [place], [address] Platelet mean volume (Bld) [Entitic vol] 10.4 fL Normal 6.2-12.0 [facility] Comment on above: Performed By: #### L 349.9000, M100.3000, M100.4001, M100.1999 #### [facility] [address] [place], [address] Platelets (Bld) [#/Vol] 342 10*3/uL Normal 150-450 [facility] Comment on above: Performed By: #### L 349.9000, M100.3000, M100.4001, M100.1999 #### [facility] [address] [place], [address] RBC (Bld) [#/Vol] 4.25 10*6/uL Normal 4.2-5.4 [facility] Comment on above: Performed By: #### L 349.9000, M100.3000, M100.4001, M100.1999 #### [facility] [address] [place], [address] RDW SD 43.9 fl Normal 35.1-43.9 [facility] Comment on above: Performed By: #### L 349.9000, M100.3000, M100.4001, M100.2000 #### [facility] [address] [place], [address] WBC (Bld) [#/Vol] 7.4 10*3/uL Normal 4.4-11.0 [facility] Comment on above: Performed By: #### L 349.9000, M100.3000, M100.4001, M100.1999 #### [facility] [address] [place], [address] Discharge Instructionon 02-17 Discharge Instruction [facility] Medical Records Department [address] [place] [address] Instructions for Home/Discharge Instructions 03/09/25 1541 MR#: [id number] Acct: [id number] Name: TIANNA LOUIS Rep #: [id number] : 2005 19 From: Елена Valladares DO PCP: Dr. Waldo Good DO Status:REG ARC Discharge Instructions Diet Discharge Diet: No restrictions DC O2, CPAP, BIPAP needs Home O2 Discharge instructions: No Dressing / Incision Discharge Activity: May Drive (once you are no longer taking pain medication and more than 24 hours out from surgery), May Shower and May Take a Tub Bath (once you are 3 days out from surgery. Take sitz bath and soak nightly) May resume sexual activity in: 4 weeks (nothing in the vagina) Ice area for (Minutes): 15 Weight Bearing Status: Weight bearing as tolerated Lifting Restrictions: as tolerated Dressing / Incision Call your doctor if your incision/area has: Continuous Slow Oozing, Sudden Increased Bleeding, Increased Pain/ Swelling, Increased Redness, Foul Smelling Discharge and Swelling at the incision site Call your doctor if you observe: Fever of 101 or Higher, Using more than 1 pad per hour, Dizziness, Chest pain, Calf discomfort and Uncontrolled pain Cleanse incision/area with: Soap Water Additional Dressing/Incision Instructions:: Pat dry or dry with blow dryer. Do not rub the incision site. Keep the area clean and dry. Go underwear free when you can. Wear loose fitted clothing and change your pads regularly. Take nightly sitz bath once you are more than 3 days post op. Ice as needed Follow Up Care Please Follow Up With: Елена Valladares DO When: 1 week Test Results: Test results from this visit will be discussed in further detail at your follow-up appointment, if applicable. Discharge Plan Admission Primary Reason for Your Visit: surgery Attending Provider: Елена Valladares Primary Care Provider: Waldo Good Instructions Print Language: Moldovan Discharge Orders/Prescriptions Prescriptions: New docusate sodium [Colace] 100 mg capsule 100 mg PO BID Qty: 30 0RF oxycodone 5 mg tablet 5 mg PO Q6H PRN (Reason: pain) 7 Days Qty: 5 0RF ibuprofen 600 mg tablet 600 mg PO Q6H PRN (Reason: pain) Qty: 30 0RF acetaminophen [Pain Relief (acetaminophen)] 325 mg tablet 650 mg PO Q6H PRN (Reason: pain) Qty: 30 0RF Referrals / Follow Up: Waldo Good DO [Primary Care Provider] - Disposition Disposition (needs filled in before D/C Order can be placed): Home, Self Care 03/09/25 1543 Елена Valladares CC: Dr. Waldo Good DO Signed [facility] MR/POSTOP.ANE 03-09-2025 MR/POSTOP.[facility] Medical Records Department [address] [place] [address] Anesthesia Postop Eval I 03/09/25 154 MR#: [id number] Acct: [id number] Name: TIANNA LOUIS Rep #: [id number] : 2005 From: Martínez Tineo CRNA PCP: Dr. Waldo Good DO Status:REG SDC Y Race: C Location: [place] [address] Anesthesia: Postop Eval I Current Vital Signs Temperature: 97.2 F Pulse Rate: 110 Blood Pressure: 96/71 Respiratory Rate: 16 Pulse Ox: 99 Assessment Airway patent: Yes Spontaneous unlabored respirations: Yes nausea: No Vomiting: No Anesthesia Complication: No Fluid Hydration Crystalloid volume administer (ml): 1,000 Total IV fluid infused: 1,000 Progress Note Anesthesia document: Postop Eval 1 completed: Yes 03/09/251543 Date Martínez Tineo CRNA Cosigner Signature: Date CC: Signed [facility] MR/[id number] 03-09-2025 MR/POSTOPAN2 [facility] Medical Records Department [address] [place] [address] Anesthesia Postop Eval II 03/09/25 1613 MR#: [id number] Acct: [id number] Name: TIANNA LOUIS Rep #: [id number] : 2005 19 From: Erik Dahl MD PCP: Dr. Waldo Good, DO Status:REG SD Y Race: C Location: [facility]-1 Anesthesia Postop Eval I Sum Postop Eval Completion status Anesthesia document: Postop Eval 1 completed: Yes Anesthesia Postop Eval I Summary Anesthesia Postop Eval I Summary: Anesthesia Postop Eval I: Assessment Summary Airway patent Yes 03/09/25 15:43 METAL BOX MAKER.TNES Spontaneous unlabored Yes 03/09/25 15:43 METAL BOX MAKER.TNES respirations Mental status nausea No 03/09/25 15:43 METAL BOX MAKER.TNES Vomiting No 03/09/25 15:43 METAL BOX MAKER.TNES Anesthesia Postop Eval I: Fluid Summary Crystalloid volume administer 1,000 03/09/25 15:43 METAL BOX MAKER.TNES (ml) Colloids volume administered ( ml) Blood Product volume administered (ml) Total IV fluid infused 1,000 03/09/25 15:43 METAL BOX MAKER.TNES Anesthesia Postop Eval I: Summary Notes Anesthesia Complication No 03/09/25 15:43 METAL BOX MAKER.TNES Anesthesia Complication Comment: Post-operative progress note Anesthesia: Postop Eval II Evaluation Mental status: Awake Pain Level: 0 nausea: No Vomiting: No 03/09/25 1613 Date [facility] Date CC: Signed Normal [facility] Operative Reporton Operative Report [facility] Medical Records Department [address] [place] [address] Operative Report 03/09/25 1633 MR#: [id number] Acct: [id number] Name: TIANNA LOUIS Rep #: [id number] : 2005 19 From: Елена Valladares DO PCP: Dr. Waldo Good, DO Status:DEP [facility] Location: [facility] Problems Associated Problem List Diagnoses (1) Labial cyst: Operative Report (Standard) Operative Information Date of Procedure: 03/09/25 Pre-Operative Diagnosis: Labial cyst Post-Operative Diagnosis: As above Surgery/Procedure Performed: Left labial cyst excision purchasing clerk: Yes Daylight Driller: Sade Crawford PGY-3 Tasks completed by assistant press operator offset: Closing, Hemostasis: Clamp and Retracting Type of Anesthesia: MAC RN Documented Start/Stop Times: Operation Date: 03/09/25 13:20 Case Time Into Pre-Op 03/09/25 11:39 Out of Pre-Op 03/09/25 14:19 Anesthesia Start 03/09/25 14:23 Into Room 03/09/25 14:23 Procedure Start 03/09/25 14:39 Procedure End 03/09/25 15:33 Anesthesia End 03/09/25 15:37 Out of Room 03/09/25 15:37 Into Recovery 03/09/25 15:40 Out of Recovery 03/09/25 16:18 Into Phase II Recovery 03/09/25 16:19 Procedure Start Time: 14:39 Procedure Stop Time: 15:33 Select all DRAINS/GRAFTS/IMPLANTS that apply: None Special Medications: None Estimated Blood Loss: 50 mL Fluids Replaced: See anesthesia record Specimen collected: Yes Description of specimen(s) removed: Labial cyst Description of surgery: The patient was counseled about risk of bleeding, infection, injury to surrounding structures. She was counseled that she could have chronic pain from this surgery. She was also counseled that the entire cyst may not be removed, and there is a risk that she continues to have cysts. The patient reports one prior cyst removal in the OR. She reports multiple I D's. She states it is interfering with her daily activities, and she continues to miss work due to the cyst. She understands risks of surgery, and desires a surgery for removal. The patient was taken to the OR where MAC anesthesia was induced and found to be adequate. An exam was performed and a left labial cyst was noted to be about 2x3 cm in size and not communicating with the vaginal mucosa. 10 mL of local was infiltrated over the cyst. An incision was made over the cyst using a scalpel. The cyst was grasped with an Allis clamp, and the skin was retracted using Allis clamps. The cyst was excised using a combination of sharp dissection with Metzenbaum scissors, and blunt dissection to lyse the filmy adhesions between the cyst wall and the subcutaneous tissue of the labia majora. Two figure of eight sutures were placed using 3-0 Vicryl during dissection, along with the Bovie cautery, to achieve hemostasis. The cyst was removed intact and sent to pathology for review. Hemablast was used over the bed of where the cyst was removed. 3-0 Vicryl was then used to close off the space, and several interrupted stitches were placed to do so. The skin was then closed using several interrupted stitches of 4-0 Vicryl. There was no bleeding at the end of the case. A vaginal sweep was performed. Sponge, sharp and instrument counts were correct. The patient was taken to the recovery room is good stable condition. Surgical Findings: Left labial cyst Complications Complications: No Admit VTE Documentation VTE Present on Admission: No VTE Mechan Device Prophylaxis: SCD's 03/09/25 2998 Cosigner Signature (if applicable): CC: Dr. Waldo Good, DO; Dr. Елена Valladares DO Signed Normal [facility] ,Urineon 03-09-2025 Beta HCG ( test) Ql (U) Negative Normal [facility] Comment on above: Result Comment: Very dilute urine specimens, as indicated by a low specific gravity, may not contain direct marketing representative levels of hCG. If is still suspected, a first morning urine specimen should be collected 48 hours later and tested. Performed By: #### L 349.9000, M100.3000, M100.4001, M100.2000 #### [facility] [address] [place], [address] Surgery Specimen Level IIIon 03-09-2025 Surgery Specimen Level III Patient Age/Sex Location Account Attending Physician ESPINOZA LOUISY BRUNILDA [facility] [place] [facility] [id number] Dr. Елена Valladares, Specimen: [id number] Received: 03/09/25 Status: ULICESAlfredo Jose Manuel Num: [id number] Spec Type: Cyst Subm Dr: Dr. Елена Valladares DO HEAD OPERATION: Excision, left labial cyst PRE-OP DIAGNOSIS: Labial cyst TISSUE SUBMITTED: A- Labial cyst MICROSCOPIC DIAGNOSIS A. Left labium, cyst, excision: * Benign cyst, ruptured and inflamed, with focal residual mucin cell lining. MICROSCOPIC DESCRIPTION Slides are reviewed. GROSS DESCRIPTION A. Received in formalin in a container labeled with the patient's name, date of , and labial cyst are 2 foreman-brown, irregular, rubbery fragments of soft tissue measuring 1.3 x 1.0 x 0.7 cm and 2.7 x 1.9 x 1.8 cm. The outer surfaces are roughened with no distinct skin. Serial sections of the largest fragment reveal a 1.2 x 1.2 x 0.8 cm cystic structure filled with foreman, semitranslucent, gelatinous material. The inner lining appears smooth and glistening. The remaining cut surfaces of each fragment are white-thompson and smooth. Search Engine Optimization Analyst sections of each are submitted in A1-2. [facility] 03-10-2025 [facility]:[id number] Patient Age/Sex Location Account Attending Physician TIANNA LOUIS / [facility] [place] [facility] [id number] Dr. Елена Valladares, Signed (signature on file) Dr. Ginny Graham MD 03/20/25 1109 Normal [facility] Comment on above: Performed By: #### L 349.9000, M100.3000, M100.4001, M100.1999 #### [facility] [address] [place], [place], [address] Type AND Screen - PAT ONLYon 03-09-2025 Ab SCREEN GEL Negative Normal [facility] Comment on above: Order Comment: Surge ry Date: 03/09/25Reason for Laboratory Test [id number] LABIAL CYST Performed By: #### L 349.9000, M100.3000, M100.4001, M100.1999 #### [facility] [address] [place], [address] CNPNon 03-08-2025 CNPN Telephone (AGGASTACC ) -------- TIANNA LOUIS ([id number]) 1 F Date Time Provider Department 03/08/25 CLAUDIA MAYO AGGVARUN During your visit today, we recorded the following information about you: Arnol Siddiqi 03/08/2025 3:36 PM Signed Left voicemail to reschedule 03/30 appointment. Provider unavailable. Can book the following week. Arnol Siddiqi Allergies As of Date: 03/08/2025 Noted Allergy Reaction BACTRIM (SULFAMETHOXAZOLE-TRIMET H*06/10/2023 11 - Vomiting Date Reviewed: 03/02/2025 Reviewed by: Елена Valladares MD - Fully Assessed Prescriptions as of 03/08/2025 - sertraline (ZOLOFT) 25 mg tablet Take 1 tablet by mouth once daily. - senna-docusate (SENNA-S) 8.6-50 mg per tablet Take by mouth. - acetaminophen (TYLENOL) 500 mg tablet Take by mouth. 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] 07/07/2023 Anemia complicating , third trimester *08/05/2023 Tachycardia [R00.0] 09/14/2023 Tiredness [R53.83] 09/14/2023 Palpitations [R00.2] 10/13/2024 Encounter Status:Closed by ARNOL SIDDIQI on 03/08/25 [facility] 03-02-2025 CNOV Office Visit (OBGYWM ) -------- TIANNA LOUIS ([id number]) 1 F Date Time Provider Department 03/02/25 10:50 AM ЕЛЕНА VALLADARES OBMICHAEL During your visit today, we recorded the following information about you: Pulse Respiration Blood pressure Weight 80/minute 14/minute 102/64 52.4 kg Height Last Period 1.6 m 03/01/25 Елена Valladares MD 03/02/2025 12:24 PM Signed DATE OF SERVICE: March 02, 2025 PROBLEM: labial cyst, pre op PAST SURGICAL HISTORY: PAST SURGICAL HISTORY Procedure Laterality Date APPENDECTOMY patient was in 6th grade PAST SURGICAL HISTORY OF Left 04/07/2022 Benign Cyst Removal from Labia PAST MEDICAL HISTORY: PAST MEDICAL HISTORY Diagnosis Date Anemia complicating , third trimester (HCC) 08/05/2023 Depression with anxiety Pilonidal abscess 06/10/2023 06/10/23- was treated during . She was told that she may need to follow with general surgery. Abhay Bone APRN.CNM Pilonidal cyst 2022 SUBJECTIVE: Recently the cyst filled with fluid and then ruptured and started to bleed. Has been missing work due to labial cyst. SOCIAL HISTORY: Social History Tobacco Use Smoking status: Never Smokeless tobacco: Never Tobacco comments: vapes Vaping Use Vaping status: current everyday user Substances: Nicotine, Flavoring Devices: Disposable, Pre-filled or refillable cartridge Substance Use Topics Alcohol use: Not Currently Drug use: Yes Types: Marijuana ALLERGIES Allergen Reactions Bactrim [Sulfametho* Vomiting Current Outpatient Medications on File Prior to Visit Medication Sig sertraline (ZOLOFT) 25 mg tablet Take 1 tablet by mouth once daily. senna-docusate (SENNA-S) 8.6-50 mg per tablet Take by mouth. acetaminophen (TYLENOL) 500 mg tablet Take by mouth. No current facility-administered medications on file prior to visit. OBJECTIVE: VITALS: BP 102/64 Pulse 80 Resp 14 Ht 160 cm (5' 3) Wt 52.4 kg (115 lb 9.6 oz) LMP 03/01/2025 (Approximate) BMI 20.48 kg/m? HEENT: Normocephalic, atraumatic, Mucus membranes moist without lesions. SKIN: No lesions. CHEST: Clear to auscultation. No wheezes or rales. Good air exchange. HEART: Regular rate and rhythm No S3 or S4. No gallops or rubs. BACK: Nontender. LOWER EXTREMITIES: There was no pitting edema, no palpable cords and no skin changes. ASSESSMENT: pre op PLAN: 1) Discussed r/b/a EUA, labial cyst excision. Discussed may not be able to remove all of the cyst wall, which could lead to re occurring cyst. Discussed possible chronic pain. Patient understands risks with procedure. The patient desires to proceed as the cyst is bothersome for her, and interfering with daily life. The rationale for the proposed surgery was discussed in addition to risks, benefits, and alternatives. General pre- and post-operative care was reviewed. Questions were answered. After discussion, the patient indicated a desire to proceed with the planned surgery. Елена Valladares DO Medical Decision Making: Problems: Moderate: 1+ chronic illnesses with change Risk: Moderate: Decision on minor surgery w/ risk factors Medical Decision Making Level: 4 - Moderate Allergies As of Date: 03/02/2025 Noted Allergy Reaction BACTRIM (SULFAMETHOXAZOLE-TRIMET H*06/10/2023 11 - Vomiting Date Reviewed: 03/02/2025 Reviewed by: Елена Valladares MD - Fully Assessed Reason for Visit: Pre-Op Visit [1235] Primary Visit Diagnosis:Visit for pre-operative examination [Z01.818] Other Visit Diagnosis:Labial cyst [N90.7] Prescriptions as of 03/02/2025 - sertraline (ZOLOFT) 25 mg tablet Take 1 tablet by mouth once daily. - senna-docusate (SENNA-S) 8.6-50 mg per tablet Take by mouth. - acetaminophen (TYLENOL) 500 mg tablet Take by mouth. 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 Follow-up and Disposition History for Encounter Date Provider Department Center 03/02/2025 [id number], SARA PIPPA Flores Encounter Status:Closed by JA (more content not included)... [facility] HISTORY PHYSICALon HISTORY PHYSICAL HNO ID: [id number] Author: ЕЛЕНА VALLADARES MD Service: ? Author Type: Physician Type: H&P Filed: 03/02/2025 12:24 Note Text: DATE OF SERVICE: March 02, 2025 PROBLEM: labial cyst, pre op PAST SURGICAL HISTORY: PAST SURGICAL HISTORY Procedure Laterality Date APPENDECTOMY patient was in 6th grade PAST SURGICAL HISTORY OF Left 04/07/2022 Benign Cyst Removal from Labia PAST MEDICAL HISTORY: PAST MEDICAL HISTORY Diagnosis Date Anemia complicating , third trimester (HCC) 08/05/2023 Depression with anxiety Pilonidal abscess 06/10/2023 06/10/23- was treated during . She was told that she may need to follow with general surgery. Abhay Bone APRN.CNM Pilonidal cyst 2022 SUBJECTIVE: Recently the cyst filled with fluid and then ruptured and started to bleed. Has been missing work due to labial cyst. SOCIAL HISTORY: Social History Tobacco Use Smoking status: Never Smokeless tobacco: Never Tobacco comments: vapes Vaping Use Vaping status: current everyday user Substances: Nicotine, Flavoring Devices: Disposable, Pre-filled or refillable cartridge Substance Use Topics Alcohol use: Not Currently Drug use: Yes Types: Marijuana ALLERGIES Allergen Reactions Bactrim [Sulfametho* Vomiting Current Outpatient Medications on File Prior to Visit Medication Sig sertraline (ZOLOFT) 25 mg tablet Take 1 tablet by mouth once daily. senna-docusate (SENNA-S) 8.6-50 mg per tablet Take by mouth. acetaminophen (TYLENOL) 500 mg tablet Take by mouth. No current facility-administered medications on file prior to visit. OBJECTIVE: VITALS: BP 102/64 Pulse 80 Resp 14 Ht 160 cm (5' 3) Wt 52.4 kg (115 lb 9.6 oz) LMP 03/01/2025 (Approximate) BMI 20.48 kg/m? HEENT: Normocephalic, atraumatic, Mucus membranes moist without lesions. SKIN: No lesions. CHEST: Clear to auscultation. No wheezes or rales. Good air exchange. HEART: Regular rate and rhythm No S3 or S4. No gallops or rubs. BACK: Nontender. LOWER EXTREMITIES: There was no pitting edema, no palpable cords and no skin changes. ASSESSMENT: pre op PLAN: 1) Discussed r/b/a EUA, labial cyst excision. Discussed may not be able to remove all of the cyst wall, which could lead to re occurring cyst. Discussed possible chronic pain. Patient understands risks with procedure. The patient desires to proceed as the cyst is bothersome for her, and interfering with daily life. The rationale for the proposed surgery was discussed in addition to risks, benefits, and alternatives. General pre- and post-operative care was reviewed. Questions were answered. After discussion, the patient indicated a desire to proceed with the planned surgery. Елена Valladares DO Medical Decision Making: Problems: Moderate: 1+ chronic illnesses with change Risk: Moderate: Decision on minor surgery w/ risk factors Medical Decision Making Level: 4 - Moderate [facility] TIANNA LOUIS ([id number]) 1 F Date Time Provider Department 02/17/25 ЕЛЕНА VALLADARES OBGYWM During your visit today, we recorded the following information about you: Anni Alvarez RN 02/17/2025 11:22 AM Signed Елена Valladares MD to [facility] Ob-Sales Person Pool 02/17/25 8:13 AM Result Note Notify pt LSIL pap smear. Needs repeat pap in 12 months PAP TEST Anni Alvarez RN 02/17/2025 11:22 AM Signed Pt notified and Pt states her paps in past and been normal. Pt states she has received 1 HPV vaccine in 2014-agreeable to get additional doses of vaccine. Pt states she does have Chronic pain with intercourse. Pt also c/o UTI sx-dysuria. Offered appt today; however, Pt at work and unable to come in. Pt states sx have been ongoing for a week. Advised Pt to go to express care this week for UTI. Pt agreeable. HPV vaccine order pending.CHELY Gonzalez Sara, MD 02/17/2025 2:56 PM Signed Filed Agree with urgent care or needs an office visit to address her concerns thanks Allergies As of Date: 02/17/2025 Noted Allergy Reaction BACTRIM (SULFAMETHOXAZOLE-TRIMET H*06/10/2023 11 - Vomiting Date Reviewed: 02/09/2025 Reviewed by: Kenzie Lara MA - Fully Assessed Reason for Visit: Results [95] Order(s):HPV VACCINE, 9-VALENT (GARDASIL 9) [34861NHB] Order #: [id number] Prescriptions as of 02/20/2025 - sertraline (ZOLOFT) 25 mg tablet Take 1 tablet by mouth once daily. - senna-docusate (SENNA-S) 8.6-50 mg per tablet Take by mouth. - acetaminophen (TYLENOL) 500 mg tablet Take by mouth. - dicyclomine (BENTYL) 20 mg tablet Take 20 mg by mouth once daily. 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] 07/07/2023 Anemia complicating , third trimester *08/05/2023 Tachycardia [R00.0] 09/14/2023 Tiredness [R53.83] 09/14/2023 Palpitations [R00.2] 10/13/2024 Encounter Status:Closed by ANNI ALVAREZ on 02/20/25 [facility] CNOVon 02-09-2025 CNOV Office Visit (OBGYWM ) -------- TIANNA LOUIS ([id number]) 1 F Date Time Provider Department 02/09/25 11:30 AM ЕЛЕНА VALLADARES OBGYWM During your visit today, we recorded the following information about you: Blood pressure Weight Last Period 120/76 51.2 kg 01/05/25 Елена Valladares MD 02/09/2025 5:45 PM Signed Test Bore Helper offered: Patient declines. Tianna Louis is a 19 year old female who presents for problem visit - labial cyst. HPI: Has noticed a labial cyst that has been present for years. She feels it changes in size and consistency. At times she has pain from the cyst. Right now she feels the cyst is smaller in size. No fevers, chills, malaise. Has chronic nausea and vomiting. Reports having multiple procedures for the cyst. She has had it drained multiple times and had a provider in [place] remove the cyst in the OR at the age of [age] years old. This cyst is interefering witrh her life. She has missed work due to the pain and size of the cyst at times. Unable to have intercourse due to the cyst. Would like to discuss surgical options. OB History Gravida1 Para1 Term1 Preterm0 AB0 Living1 SAB0 IAB0 Ectopic0 Multiple0 Live Births1 Sales Person History LMP: 01/05/2025 (Approximate), Having periods Age at Menarche: Age at First : Age at Menopause: Sales Person History Comments: Sexual Activity: Yes; Male Contraception: No contraception data on record PAST MEDICAL HISTORY Diagnosis Date Anemia complicating , third trimester (HCC) 08/05/2023 Depression with anxiety Pilonidal abscess 06/10/2023 06/10/23- was treated during . She was told that she may need to follow with general surgery. Abhay NATASHA Bone.CNM Pilonidal cyst 2022 PAST SURGICAL HISTORY Procedure Laterality Date APPENDECTOMY patient was in 6th grade PAST SURGICAL HISTORY OF Left 04/07/2022 Benign Cyst Removal from Labia FAMILY HISTORY Problem Relation Age of Onset Breast Cancer Maternal Grandmother possible Endometrial Cancer as well Social History Tobacco Use Smoking status: Never Smokeless tobacco: Never Tobacco comments: vapes Vaping Use Vaping status: current everyday user Substances: Nicotine, Flavoring Devices: Disposable, Pre-filled or refillable cartridge Substance Use Topics Alcohol use: Not Currently Drug use: Yes Types: Marijuana Current Outpatient Medications Medication Sig sertraline (ZOLOFT) 25 mg tablet Take 1 tablet by mouth once daily. senna-docusate (SENNA-S) 8.6-50 mg per tablet Take by mouth. acetaminophen (TYLENOL) 500 mg tablet Take by mouth. dicyclomine (BENTYL) 20 mg tablet Take 20 mg by mouth once daily. (Patient not taking: Reported on 12/01/2024) No current facility-administered medications for this visit. Allergies As of Date: 02/09/2025 Allergen Noted Reaction BACTRIM [SULFAMETHOXAZOLE-TRIMET H*06/10/2023 Vomiting Fully Assessed 02/09/2025 REVIEW OF SYSTEMS Expanded ROS: N/A Allergies and current medication updated:Yes SENSITIVE EXAM: The sensitive examination was discussed with the Patient or Patient's Authorized Search Engine Optimization Analyst. As applicable, any other physician, advance practice provider, medical student, or other health professional student that will be observing or involved in the sensitive examination for educational or training purposes was discussed with the Patient or Authorized Search Engine Optimization Analyst. The Patient or Authorized Search Engine Optimization Analyst has agreed to proceed with the sensitive examination. (Sensitive examination includes inspection and/or palpation of the breasts, pelvis, prostate and anorectal regions). EXAM: BP 120/76 Wt 112 lb 12.8 oz (51.2kg) LMP 01/05/2025 GENERAL: pleasant, female in no apparent distress HEENT: Normocephalic and atraumatic CHEST: Normal inspiratory effort PELVIC: Left labia minora cyst with minimal to no fluid collection present at this time but cyst wall visible and palpated, and involves > 50% of labia. NEURO: exam grossly non-focal EXTREMITIES: normal ASSESSMENT AND PLAN: Assessment AND Plan Screening for cervical cancer Orders: PAP TEST Special screening examination for human papillomavirus (HPV) Orders: PAP TEST Labial cyst Patient desires surgical management of persistent left labial cyst that is interfering with her life. Discussed r/b/a surgical excision of cyst. Discussed could have chronic pain after surgery. She understands risks of surgical management of the cyst and would like to proceed. She does not remember who performed the prior cyst removal surgery, or where it was performed so unable to get records. Continue daily sitz baths. At this time an IANDD is not needed. Surgery sheet completed. Елена Valladares DO Medical Decision Making: Problems: Low: Stable chronic illness Risk: Low: Low risk from testing/treatment Medical Decision Making Level: 3 - Low Allergie (more content not included)... [facility] PAP TESTon 02-09-2025 ADEQUACY [facility] Comment on above: Order Comment: Speci men Type: FLUID SPECIMENOrdering Facility: [facility] Address: [address] [place] [address] Result Comment: Sati sfactory for interpretation. Transformation zone present Performed By: #### L [id number] ####[facility]ORY[facility] [id number] [place] [address] [place] [facility] LAB[facility] [id number] [address] OF [place] CASE REPORT [facility] Comment on above: Order Comment: Speci men Type: FLUID SPECIMENOrdering Facility: [facility] Address: [address] [place] [address] Result Comment: Gyne cologic Cytology Report Case: [id number] Authorizing Provider: Елена Valladares MD Collected: 02/09/2025 12:06 PM Ordering Location: OB/Gynecology Received: 02/09/2025 04:43 PM First Screen: Dorie Garcia, CT, ASCP Pathologist: Chacha Sharp MD Specimen: Pap Test, ThinPrep, Cervix Performed By: #### L [id number] ####[facility]ORY[facility] [id number] [place] [address] [place] [facility] LABCLIA [id number] [address] [place] [address] [place] CLINICAL HISTORY, CYTOLOGY, OFFICER LIEUTENANT First Pap Smear [facility] Comment on above: Order Comment: Speci men Type: FLUID SPECIMENOrdering Facility: [facility] Address: [address] [place] [address] Performed By: #### L [id number] ####[facility]ORY[facility]IA [id number] [address] LABCLIA [id number] [address] [place] [facility] [place] FINAL PERFORMING LAB Normal [facility] Comment on above: Order Comment: Speci men Type: FLUID SPECIMENOrdering Facility: [facility] Address: [address] [place] [address] Result Comment: Tech nical component, disaster recovery manager screening performed at: [facility], [address] [place] [address] CLIA: [id number] Diagnostic interpretation performed at: [facility], [address] [place] [address] CLIA# [id number] Daylight Driller: Chacha Sharp MD Performed By: #### L [id number] ####[facility]ORY[facility]IA [id number] [address] LABCLIA [id number] [place] [id number] [place] INTERPRETATION, CYTOLOGY, OFFICER LIEUTENANT Abnormal [facility] Comment on above: Order Comment: Speci men Type: FLUID SPECIMENOrdering Facility: [facility] Address: [address] [place] [address] Result Comment: Low grade squamous intraepithelial lesion (LSIL). at 0810 EDT Performed By: #### L [id number] ####[facility]ORY[facility] [id number] [place] [id number] [facility] LABCLIA [id number] [facility] [address] [place] [address] [place] LMP 01/05/2025 [facility] Comment on above: Order Comment: Speci men Type: FLUID SPECIMENOrdering Facility: [facility] Address: [address] [place] [address] Performed By: #### L [id number] ####[facility]ORYCLIA [id number] [place] [id number] [facility] LABCLIA [id number] [address] [place] [address] [place] PAP DISCLAIMER COMMENT The Pap Smear is a screening test for cervical cancer. False negative results occur with all screening tests, emphasizing the need for rescreening at recommended intervals, and clinical correlation. Normal [facility] Comment on above: Order Comment: Speci men Type: FLUID SPECIMENOrdering Facility: [facility] Address: [address] [place] [address] Performed By: #### L [id number] ####[facility]ORY[facility] [id number] [place] [id number] [facility] LABCLIA [id number] [address] [place] [address] [place] PAP GENERAL CATEGORIZATION Epithelial Cell Abnormality Normal [facility] Comment on above: Order Comment: Speci men Type: FLUID SPECIMENOrdering Facility: [facility] Address: [address] [place] [address] Performed By: #### L [id number] ####[facility]ATORYCLIA [id number] [place] [address] [facility] LABCLIA [id number] [facility] [address] [place] [id number] [facility] PAP TRIP MOTOR OPERATOR COMMENT This specimen has be en analyzed by the ThinPrep Imaging System, an automated imaging and review system, which assists the laboratory in evaluating cells on ThinPrep Pap tests. Following automated imaging, selected kelsey from every slide are reviewed by a disaster recovery manager. Normal [facility] Comment on above: Order Comment: Speci men Type: FLUID SPECIMENOrdering Facility: [facility] Address: [address] [place] [address] Performed By: #### L [id number] ####[facility]ORYCLIA [id number] [place] [id number] [facility] LABCLIA [id number] [address] CNCOon 01-02-2025 CNCO Letter Text Normal [facility] CNPNon 01-02-2025 CNPN Telephone ([facility]) -------- LOUISTIANNA ABURTO ([id number]) 1 F Date Time Provider Department 01/02/25 SLY PRIDE During your visit today, we recorded the following information about you: Marcos Stone 01/02/2025 9:41 AM Signed No Show Documentation Tianna Louis no showed for an appointment on 01/02/25 with Sly Cam MD at 9:00 AM. She was scheduled for follow up. I called and spoke with the patient regarding her missed appointment. Tianna stated the reason that she missed her appointment was because - Attempted to contact the patient regarding missed appointment. Unable to leave message . Resources discussed/offered to patient: N/A No show determined to be fault of patient: N/A This is the patients first no show in the last 12 months. Patient was rescheduled for N/A. Letter mailed : Yes Is this the Third or Fourth No Show? No Marcos Stone January 02, 2025 9:40 AM Allergies As of Date: 01/02/2025 Noted Allergy Reaction BACTRIM (SULFAMETHOXAZOLE-TRIMET H*06/10/2023 11 - Vomiting Date Reviewed: 12/14/2024 Reviewed by: Lokesh Friend MD - Fully Assessed Reason for Visit: No Show [1558] Cmt: No Show #1 Prescriptions as of 01/02/2025 - sertraline (ZOLOFT) 25 mg tablet Take 1 tablet by mouth once daily. - senna-docusate (SENNA-S) 8.6-50 mg per tablet Take by mouth. - acetaminophen (TYLENOL) 500 mg tablet Take by mouth. - dicyclomine (BENTYL) 20 mg tablet Take 20 mg by mouth once daily. 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) -------- TIANNA LOUIS ([id number]) 1 F Date Time Provider Department 12/14/24 9:00 AM BALJIT HARVEY During your visit today, we recorded the following information about you: Temperature Pulse Respiration Blood pressure 99.1 degrees 94/minute 17/minute 118/72 Weight Height Last Period 53.5 kg 1.6 m 11/07/24 Lokesh Firend MD 12/14/2024 9:52 AM Addendum [facility] Lokesh Friend MD ASSESSMENT/PLAN: 1. MELISSA (generalized anxiety disorder) - ICD9: 300.02, ICD10: F41.1 (primary diagnosis) 2. Moderate episode of recurrent major depressive disorder (HCC) - ICD9: 296.32, ICD10: F33.1 - never took her lexapro, mentioned that it did not work before so she would like to try other antidepressants - explained to the patient that antidepressant may need 4-8 weeks to really work - educate patient to close monitoring the side effects and come back in 1 month to see how she does in the new med. - patient had issue with psychiatry team, would like to see psychology at this moment - CONSULT TO PSYCHOLOGY - SERTRALINE 25 MG TABLET Lokesh Friend MD SUBJECTIVE: Tianna Louis is a 19 year old female here today for acute visit. HPI PMH significant for depression and anxiety, Lexapro was prescribed for depression but did not take it. She had it before and feels that it never work at all, so she wants something else. 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 Patient had holter monitor placed on 09/2024, which showed normal result. CBC and CMP 2 weeks ago were normal, TSH 09/2024 wnl Patient feels very anxious. She feels that all her symptoms before might have correlation with her anxiety, especially knowing that all her lab works were normal. She mentioned at one time, she felt palpitation with HR of 142 when she was lying down at home. She admitted that she has a lot going on at her family, she's splitting up with her partner and still fighting for custody. She would like to try other medication than lexapro. She has never taken the lexapro that she was prescribed before. She never tried other antidepressants. She mentioned that she supposed to see psych, but she wanted to change provider. However, dempsey anisha tried to call them, the computer aided design operator was just very unpleasant and kept telling her to see the same provider and take the lexapro. So, she requested to see psychology for now until her issue with psych team can be solved. GAD7 is 19 today PHQ9 is 13 PAST MEDICAL HISTORY Diagnosis Date Anemia complicating , third trimester 08/05/2023 Depression with anxiety Pilonidal abscess 06/10/2023 06/10/23- was treated during . She was told that she may need to follow with general surgery. Abhay Bone APRN.CNLatoya Pilonidal cyst 2022 PAST SURGICAL HISTORY Procedure Laterality Date APPENDECTOMY patient was in 6th grade PAST SURGICAL HISTORY OF Left 04/07/2022 Benign Cyst Removal from [facility] Social History Tobacco Use Smoking status: Never Smokeless tobacco: Never Tobacco comments: vapes Vaping Use Vaping status: current everyday user Substances: Nicotine, Flavoring Devices: Disposable, Pre-filled or refillable cartridge Substance Use Topics Alcohol use: Not Currently Drug use: Yes Types: Marijuana FAMILY HISTORY Problem Relation Age of Onset Breast Cancer Maternal Grandmother possible Endometrial Cancer as well PAIN EVALUATION No data found in the last 1 encounters. ALLERGIES Allergen Reactions Bactrim [Sulfametho* Vomiting Medication List prior to visit Current Outpatient Medications Medication Sig senna-docusate (SENNA-S) 8.6-50 mg per tablet Take by mouth. acetaminophen (TYLENOL) 500 mg tablet Take by mouth. famotidine (PEPCID) 20 mg tablet Take 1 tablet by mouth daily at bedtime. polyethylene glycol 3350 (MIRALAX) 17 gram/dose powder Take 17 g by mouth as directed. Dissolve dose in 4 - 8 ounces of liquid and take as directed. sertraline (ZOLOFT) 25 mg tablet Take 1 tablet by mouth once daily. dicyclomine (BENTYL) 20 mg tablet Take 20 mg by mouth once daily. (Patient not taking: Reported on 12/01/2024) No current facility-administered medications for this visit. I have confirmed and edited as necessary the chief complaint, medications, past medical, family and social histories. Review of Systems Constitutional: Positive for appetite change and fatigue. Negative for chills and fever. HENT: Negative for ear discharge, ear pain, rhinorrhea and sore throat. Eyes: Negative for discharge and redness. Respiratory: Negative for cough and shortness of breath. Cardiovascular: Negative for chest pain. Gastrointestinal: Negative for abdominal pain, nausea and vomiting. Genitourinary: Negative for dysuria and flank pain. Musculoskeletal: N (more content not included)... Normal [facility] Emergency Department Summary on 12-03-2024 Emergency Department Summary [facility] Medical Records Department [address] [place] [address] Emergency Department Summary 12/03/24 MR#: [id number] Acct: [id number] Name: TIANNA LOUIS Rep #: [id number] : 2005 19 From: Catalino Keller DO PCP: Dr. Waldo Good, Status:DEP ER Location: ED HPI History of Present Illness Chief Complaint: Fever Narrative Narrative: Patient is a 19-year-old female with history of chronic abdominal pain who presents to the emergency department for cough, congestion, fever and chills over the last 4 days. Patient that she saw her PCP 2 days ago, however they were more focused on her abdominal pain that is chronic and had multiple lab studies done. Patient think she might have the flu and is here for evaluation. [facility] Medical History Abscess Anorexia PTSD (post-traumatic stress disorder) Depression Headache Vaginal cyst Home Medications ???Medication ???Instructions ???Recorded ???Last Taken ???Type NK 09/26/24 Unknown History dicyclomine 20 mg tablet 20 mg PO TID PRN abdominal pain Unknown Rx #20 tabs Allergy/AdvReac Type Severity Reaction Status Date / Time sulfamethoxazole (From AdvReac Mild Vomiting Verified 12/03/24 10:50 Bactrim) trimethoprim (From Bactrim) AdvReac Mild Vomiting Verified 12/03/24 10:50 Surgical History History of appendectomy History of appendectomy Social History household members: significant other Smoking Status: Heavy Smoker (>10/day) alcohol intake: former substance use type: former substance user Date of last use: Marijuana ROS ROS ED ROS Narrative Constitutional: Negative forw eight loss. Positive fever chills weakness Eyes: Negative for vision loss, vision change, double vision ENT: Negative for any sore throat, ear pain, congestion Cardiovascular: Negative for any chest pain, tightness, palpitations Respiratory: Negative for any sputum production, hemoptysis, dyspnea, dyspnea on exertion, orthopnea. Positive cough Gastrointestinal: Negative for any abdominal pain, nausea, vomiting, diarrhea, constipation, blood in stool, blood in vomit : Negative for any urinary frequency, dysuria, retention, blood in urine Muscle skeletal: Negative for any neck pain. Positive for back pain Neurological: Negative for any headache, syncope, dizziness Skin: Negative for any rashes, itching, abrasions, lacerations Psychiatric: Negative for any depression, anxiety, stress, suicidal ideation, homicidal ideation Hematologic: Negative for any excessive bruising, easy bleeding EXAM Physical Exam Narrative Exam Narrative: Vital signs reviewed. Patient appears to be in no obvious distress. Patient does feel warm to the touch. HEET: Head normocephalic atraumatic, TMs clear bilaterally. Posterior pharynx is clear, moist mucous membranes. Nares clear bilaterally. Neck: Supple with no lymphadenopathy or tenderness. No signs of meningismus. Cardiac: Regular rate and rhythm no murmurs gallops or rubs, equal peripheral pulses bilaterally. Respiratory: Lungs clear to auscultation bilaterally. No chest tenderness. Abdomen: Soft, nontender, nondistended. No abdominal bruit or pulsatile masses. No hepatosplenomegaly Extremities: No peripheral edema, no signs of gross trauma or deformity. Active full range of motion of all extremities. Neuro: Cranial nerves II through XII intact, no focal neurological deficits. Skin: Clean dry and intact with no rash, purpura, petechiae, vesicles or pustules. Backs/flank: No CVA tenderness, no midline spinal tenderness, no deformity. Psych: Normal mood and affect. No SI, HI or acute psychosis. Const Vital Signs: 12/03/24 10:49 12/03/24 11:17 Temperature 97.9 F Temperature Source Oral Pulse Rate 109 H Respiratory Rate 22 H Respiratory Effort Normal Non-Labored Blood Pressure 109/74 Blood Pressure Mean 85 Pulse Ox 98 Oxygen Delivery Method Room Air Positive well nourished and well developed General Appearance ED: well developed Physical Exam Const Vital Signs: 12/03/24 10:49 12/03/24 11:17 Temperature 97.9 F Temperature Source Oral Pulse Rate 109 H Respiratory Rate 22 H Respiratory Effort Normal Non-Labored Blood Pressure 109/74 Blood Pressure Mean 85 Pulse Ox 98 Oxygen Delivery Method Room Air MDM MDM Treatment and Re-Evaluation :: Differential diagnosis includes however is not limited to: COVID-19, influenza, RSV, community- acquired pneumonia, strep throat, otitis media, sinusitis. Patient appears generally well, vital signs are stable, patient is nontoxic-appearing. Presenting (more content not included)... Normal [facility] M100.678on 12-03-2024 SARS-CoV-2 (COVID-19) Ab IA Ql Normal Reference Range = Negative FLUABV+SARS-CoV-2+RSV Pnl Resp KATHLEEN+probe GeneXpert Instrument, PCR method FLUABV+SARS-CoV-2+RSV Pnl Resp KATHLEEN+probe CRITICAL VALUE CALLED TO [facility] 12/03/24 1228 Nancy Gloria. RESULTS READ BACK BY SAME. RESULTS PRINTED TO 12/03/24 1230 Nancy Gloria. SARS-CoV-2 (COVID 19) A Positive A INFLUENZA A A Positive A INFLUENZA B Negative RSV PCR Negative INFLUENZAE A SARS-CoV-2 (COVID 19) Normal [facility] Comment on above: Performed By: #### M 100.678 #### [facility] Laboratory [facility] [address] [place], [address] ESR Westergren method (Bld) [Velocity]on 12-02-2024 ESR (Bld) [Velocity] 25 mm/h High [facility] Interpretation and review of laboratory results Abnormal [facility] CBC panel Auto (Bld)on 12-01 Erythrocyte distribution width (RBC) [Ratio] 12.8 % 11.5 - 15.0 % [facility] Hematocrit (Bld) [Volume fraction] 41.1 % 36.0 - 46.0 % [facility] Hemoglobin (Bld) [Mass/Vol] 13.7 g/dL 11.5 - 15.5 g/dL [facility] Interpretation and review of laboratory results Normal [facility] MCH (RBC) [Entitic mass] 30.4 pg 26.0 - 34.0 pg [facility] MCHC (RBC) [Mass/Vol] 33.3 g/dL 30.5 - 36.0 g/dL [facility] MCV (RBC) [Entitic vol] 91.1 fL 80.0 - 100.0 fL [facility] Nucleated RBC (Bld) [#/Vol] NINF [facility] Platelet mean volume (Bld) [Entitic vol] 10.8 fL 9.0 - 12.7 fL [facility] Platelets (Bld) [#/Vol] 283 10*3/uL [facility] RBC (Bld) [#/Vol] 4.51 10*6/uL 3.90 - 5.2 0 m/uL [facility] WBC (Bld) [#/Vol] 8.18 10*3/uL [facility] Erythrocyte distribution width (RBC) [Ratio] 12.8 % Normal 11.5-15.0 [facility] Comment on above: Order Comment: Speci men Type: BLOOD SPECIMENOrdering Facility: [facility] Address: [address] [place] [address] Performed By: #### 5 8410-2 ####[place] [facility] LABORATORYCLIA [id number] [address] STATES OF [facility] Hematocrit (Bld) [Volume fraction] 41.1 % Normal 36.0-46.0 [facility] Comment on above: Order Comment: Speci men Type: BLOOD SPECIMENOrdering Facility: [facility] Address: [address] [place] [address] Performed By: #### 5 8410-2 ####[facility] LABORATORYCLIA [id number] [address] [place] Hemoglobin (Bld) [Mass/Vol] 13.7 g/dL Normal 11.5-15.5 [facility] Comment on above: Order Comment: Speci men Type: BLOOD SPECIMENOrdering Facility: [facility] Address: [address] [place] [address] Performed By: #### 5 8410-2 ####[facility] LABORATORYCLIA [id number] [address] MCH (RBC) [Entitic mass] 30.4 pg Normal 26.0-34.0 [facility] Comment on above: Order Comment: Speci men Type: BLOOD SPECIMENOrdering Facility: [facility] Address: [address] [place] [address] Performed By: #### 5 8410-2 ####[facility] LABORATORYCLIA [id number] [address] MCHC (RBC) [Mass/Vol] 33.3 g/dL Normal 30.5-36.0 [facility] Comment on above: Order Comment: Speci men Type: BLOOD SPECIMENOrdering Facility: [facility] Address: [address] [place] [address] Performed By: #### 5 8410-2 ####[facility] LABORATORYCLIA [id number] [address] MCV (RBC) [Entitic vol] 91.1 fL Normal 80.0-100.0 [facility] Comment on above: Order Comment: Speci men Type: BLOOD SPECIMENOrdering Facility: [facility] Address: [address] [place] [address] Performed By: #### 5 8410-2 ####[facility] LABORATORYCLIA [id number] [address] Nucleated RBC (Bld) [#/Vol] 10*3/uL Normal <0.01 [facility] Comment on above: Order Comment: Speci men Type: BLOOD SPECIMENOrdering Facility: [facility] Address: [address] [place] [address] Performed By: #### 5 8410-2 ####[facility] LABORATORYCLIA [id number] [place] [address] [place] Platelet mean volume (Bld) [Entitic vol] 10.8 fL Normal 9.0-12.7 [facility] Comment on above: Order Comment: Speci men Type: BLOOD SPECIMENOrdering Facility: [facility] Address: [address] [place] [address] Performed By: #### 5 8410-2 ####[facility] LABORATORYCLIA [id number] [address] STATES OF [facility] Platelets (Bld) [#/Vol] 283 10*3/uL Normal 150-400 [facility] Comment on above: Order Comment: Speci men Type: BLOOD SPECIMENOrdering Facility: [facility] Address: [address] [place] [address] Performed By: #### 5 8410-2 ####[facility] LABORATORYCLIA [id number] [address] OF [facility] RBC (Bld) [#/Vol] 4.51 10*6/uL Normal 3.90-5.20 [facility] Comment on above: Order Comment: Speci men Type: BLOOD SPECIMENOrdering Facility: [facility] Address: [address] [place] [address] Performed By: #### 5 8410-2 ####[facility] LABORATORYCLIA [id number] [address] STATES OF [facility] WBC (Bld) [#/Vol] 8.18 10*3/uL Normal 3.70-11.00 [facility] Comment on above: Order Comment: Speci men Type: BLOOD SPECIMENOrdering Facility: [facility] Address: [address] [place] [address] Performed By: #### 5 8410-2 ####[place] LABORATORYCLIA [id number] [address] OF [facility] CNOVon 12-01-2024 CNOV Office Visit ([facility]) -------- TIANNA LOUIS ([id number]) 1 F Date Time Provider Department 12/01/24 1:40 PM SLY PRIDE During your visit today, we recorded the following information about you: Temperature Pulse Respiration Blood pressure 98.4 degrees 114/minute 17/minute 102/71 Weight Height 53.5 kg 1.6 m Sly Pride MD 12/05/2024 1:31 AM Signed [facility] Sly Cam MD ASSESSMENT/PLAN: 1. Stomach pain - ICD9: 536.8, ICD10: R10.9 (primary diagnosis) Ddx of stomach pain includes constipation, , GERD, PUD, Gastritis, IBS, Constipation, Celiac sprue, H. Pylori, functional dyspepsia (although emesis warrants consideration of another disorder). Red flag signs of weight loss, emesis, early satiety, and intolerance to solid>liquid warrants further evaluation with EGD. Associated diarrhea could coexist as another process and needs further workup. Ddx include celiac, diet, medications, IBS, IBD etc. Encouraged to take Bentyl in the meantime for any relief. - Check CBC, CMP, BMP, H pylori antibodies - Begin treatment with Famotidine - Setup for EGD - Refer for GI consult - FAMOTIDINE 20 MG TABLET - POLYETHYLENE GLYCOL 3350 17 GRAM/DOSE ORAL POWDER - H PYLORI IGG AB - ENTERIC BACTERIAL PANEL BY PCR - COMPLETE BLOOD COUNT - COMPREHENSIVE METABOLIC PANEL - CONSULT TO GASTROENTEROLOGY - HCG, QUALITATIVE, URINE - URINALYSIS, REFLEX MICROSCOPIC - XR ABDOMEN 1V SUPINE - SEDIMENTATION RATE, WESTERGREN - TRANSGLUTAMINASE ABS - GLIADIN (DEAMINATED) ABS 2. Special screening examination for viral disease - ICD9: V73.99, ICD10: Z11.59 - HEPATITIS C ANTIBODY IA WITH CONFIRMATION Sly Cam MD SUBJECTIVE: Tianna Louis is a 19 year old female here today for stomach pains. Said ever since of her child (born 08/15/2023) had stomach ache. Will go days without eating. Had just water today, which caused her to have an episode of emesis though she said intolerance is worse with more solid food. However, denies trouble swallowing. This morning said also had subjective fever, stomach pain spreading to back. Is worse at 4-5 AM in the morning. Will come and go. Occurs when she eats. Endorses early satiety where had only 2 stuffed shells last night and immediately felt full. Stomach pain is 8/10 sometimes up to 10/10. Sharp, stabbing pain in stomach and burning in back. Intermittent and would last from 2 hours at time on and off throughout the day. Will never know when it would happen. Has tried taking ibuprofen and tylenol without relief. Bentyl did help for a little but then it stopped working. Will be on floor hunched over sometimes from pain. Will sit on toilet. But will not have any BM. Sometimes does have BM, and will be diarrhea (explosive). Sometimes bleeding is associated with it. Dark stool, tarry looking, but not black. Associated with bloating. Having flatus. Constipated this morning, had 1-2 BM. Diarrhea interspersed. Weight loss 126 from 11/07 now is 118 lbs is significant and noticeable to her. Not sure if has acid reflux. Denies any recent travel. TSH form 09/27/2024 wnl. Menstrual cycles returned are regular and normal flow. Hx of anxiety and depression. Lexapro was prescribed for depression but did not take it. 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 PAST MEDICAL HISTORY Diagnosis Date Anemia complicating , third trimester 08/05/2023 Depression with anxiety Pilonidal abscess 06/10/2023 06/10/23- was treated during . She was told that she may need to follow with general surgery. Abhay Bone APRN.CNM Pilonidal cyst 2022 PAST SURGICAL HISTORY Procedure Laterality Date APPENDECTOMY patient was in 6th grade PAST SURGICAL HISTORY OF Left 04/07/2022 Benign Cyst Removal from [facility] Social History Tobacco Use Smoking status: Never Smokeless tobacco: Never Tobacco comments: vapes Vaping Use Vaping status: current everyday user Substances: Nicotine, Flavoring Devices: Disposable, Pre-filled or refillable cartridge Substance Use Topics Alcohol use: Not Currently Drug use: Yes Types: Marijuana FAMILY HISTORY Problem Relation Age of Onset Breast Cancer Maternal Grandmother possible Endometrial Cancer as well PAIN EVALUATION No data found in the last 1 encounters. ALLERGIES Allergen Reactions Bactrim [Sulfametho* Vomiting Medication List prior to visit Current Outpatient Medications Medication Sig senna-docusate (SENNA-S) 8.6-50 mg per tablet Take by mouth. acetaminophen (TYLENOL) 500 mg tablet Take by mouth. famotidine (PEPCID) 20 mg tablet Take 1 tablet by mouth daily at bedtime. polyethylene glycol 3350 (MIRALAX) 17 gram/dose powder Take (more content not included)... Normal [facility] -------- TIANNA LOUIS ([id number]) 1 F Date Time Provider Department 12/01/24 SLY PRIDE During your visit today, we recorded the following information about you: Issa Beaulieu 12/01/2024 4:27 PM Signed Referral to GI entered into the [facility] portal on 12/01/24. Confirmation number [id number]. Allergies As of Date: 12/01/2024 Noted Allergy Reaction BACTRIM (SULFAMETHOXAZOLE-TRIMET H*06/10/2023 11 - Vomiting Date Reviewed: 12/01/2024 Reviewed by: Mary Nash LPN - Fully Assessed Reason for Visit: Referral Information [9210] Cmt: Gastroenterology Prescriptions as of 12/01/2024 - senna-docusate (SENNA-S) 8.6-50 mg per tablet Take by mouth. - acetaminophen (TYLENOL) 500 mg tablet Take by mouth. - famotidine (PEPCID) 20 mg tablet Take 1 tablet by mouth daily at bedtime. - polyethylene glycol 3350 (MIRALAX) 17 gram/dose powder Take 17 g by mouth as directed. Dissolve dose in 4 - 8 ounces of liquid and take as directed. - dicyclomine (BENTYL) 20 mg tablet Take 20 mg by mouth once daily. - escitalopram oxalate (LEXAPRO) 5 mg tablet Take 1 tablet by mouth once daily. 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] 07/07/2023 Anemia complicating , third trimester *08/05/2023 Tachycardia [R00.0] 09/14/2023 Tiredness [R53.83] 09/14/2023 Palpitations [R00.2] 10/13/2024 Encounter Status:Closed by ISSA BEAULIEU on 12/01/24 Normal [facility] Comprehensive metabolic 2000 panelon 12-01-2024 Albumin [Mass/Vol] 4.5 g/dL 3.9 - 4.9 g/dL [facility] ALP [Catalytic activity/Vol] 98 U/L 34 - 123 U/L [facility] ALT With P-5'-P [Catalytic activity/Vol] 20 U/L 7 - 38 U/L [facility] Anion gap [Moles/Vol] 11 mmol/L 8 - 15 mmol/L [facility] AST With P-5'-P [Catalytic activity/Vol] 19 U/L 13 - 35 U/L [facility] Bilirubin [Mass/Vol] 0.5 mg/dL 0.2 - 1 .3 mg/dL [facility] Calcium [Mass/Vol] 9.5 mg/dL 8.5 - 10. 2 mg/dL [facility] Chloride [Moles/Vol] 101 mmol/L 98 - 10 7 mmol/L [facility] CO2 [Moles/Vol] 25 mmol/L 22 - 30 mmol/L [facility] Creatinine [Mass/Vol] 0.71 mg/dL 0.58 - 0.96 mg/dL [facility] GFR/1.73 sq M.predicted among non-blacks MDRD (S/P/Bld) [Vol rate/Area] 124 mL/min/{1.73_m2} - PINF [facility] Comment on above: Estimated Glomerular Filtration Rate (eGFR) is calculated using the 2020 CKD-EPI creatinine equation. This equation utilizes serum creatinine, sex, and age as parameters. The creatinine assay has traceable calibration to isotope dilution-mass spectrometry. Refer to KDIGO guidelines for clinical interpretation. In patients with unstable renal function, e.g. those with acute kidney injury, the eGFR may not accurately reflect actual GFR. Glucose [Mass/Vol] 91 mg/dL 74 - 99 mg/dL [facility] Comment on above: The [place] Diabete s Association (ADA) provides guidance for cutoff values for fasting glucose and random glucose. The ADA defines fasting as no caloric intake for at least 8 hours. Fasting plasma glucose results between 100 to 125 mg/dL indicate increased risk for diabetes (prediabetes). Fasting plasma glucose results greater than or equal to 126 mg/dL meet the criteria for diagnosis of diabetes. In the absence of unequivocal hyperglycemia, results should be confirmed by repeat testing. In a patient with classic symptoms of hyperglycemia or hyperglycemic crisis, random plasma glucose results greater than or equal to 200 mg/dL meet the criteria for diagnosis of diabetes. Reference: Standards of Medical Care in Diabetes 2016, [place] Diabetes Association. Diabetes Care. 2016.39(Suppl 1). Interpretation and review of laboratory results Normal [facility] Potassium [Moles/Vol] 3.7 mmol/L 3.7 - 5.1 mmol/L [facility] Protein [Mass/Vol] 7.8 g/dL 6.3 - 8.0 g/dL [facility] Sodium [Moles/Vol] 137 mmol/L 136 - 144 mmol/L [facility] Urea nitrogen [Mass/Vol] 10 mg/dL 7 - 21 mg/dL [facility] Albumin [Mass/Vol] 4.5 g/dL Normal 3.9-4.9 [facility] Comment on above: Order Comment: Speci men Type: BLOOD SPECIMENOrdering Facility: [facility] Address: [address] [place] [address] Performed By: #### 2 4323-8 ####[facility]ATORYCLIA [id number] [address] [place] ALP [Catalytic activity/Vol] 98 U/L Normal 34-123 [facility] Comment on above: Order Comment: Speci men Type: BLOOD SPECIMENOrdering Facility: [facility] Address: [address] [place] [address] Performed By: #### 2 4323-8 ####[facility] LABORATORYCLIA [id number] [address] [place] ALT With P-5'-P [Catalytic activity/Vol] 20 U/L Normal 7-38 [facility] Comment on above: Order Comment: Speci men Type: BLOOD SPECIMENOrdering Facility: [facility] Address: [address] [place] [address] Performed By: #### 2 4323-8 ####[facility] LABORATORYCLIA [id number] [address] STATES OF [facility] Anion gap [Moles/Vol] 11 mmol/L Normal 8-15 [facility] Comment on above: Order Comment: Speci men Type: BLOOD SPECIMENOrdering Facility: [facility] Address: [address] [place] [address] Performed By: #### 2 4323-8 ####[facility] LABORATORYCLIA [id number] [address] [place] AST With P-5'-P [Catalytic activity/Vol] 19 U/L Normal 13-35 [facility] Comment on above: Order Comment: Speci men Type: BLOOD SPECIMENOrdering Facility: [facility] Address: [address] [place] [address] Performed By: #### 2 4323-8 ####[facility] LABORATORYCLIA [id number] [address] [place] Bilirubin [Mass/Vol] 0.5 mg/dL Normal 0.2-1.3 [facility] Comment on above: Order Comment: Speci men Type: BLOOD SPECIMENOrdering Facility: [facility] Address: [address] [place] [address] Performed By: #### 2 4323-8 ####[facility] LABORATORYCLIA [id number] [place] [address] [place] Calcium [Mass/Vol] 9.5 mg/dL Normal 8.5-10.2 [facility] Comment on above: Order Comment: Speci men Type: BLOOD SPECIMENOrdering Facility: [facility] Address: [address] [place] [address] Performed By: #### 2 4323-8 ####[facility] LABORATORYCLIA [id number] [place] [address] [place] Chloride [Moles/Vol] 101 mmol/L Normal 98-107 [facility] Comment on above: Order Comment: Speci men Type: BLOOD SPECIMENOrdering Facility: [facility] Address: [address] [place] [address] Performed By: #### 2 4323-8 ####[facility] LABORATORYCLIA [id number] [place] [address] [place] CO2 [Moles/Vol] 25 mmol/L Normal 22-30 [facility] Comment on above: Order Comment: Speci men Type: BLOOD SPECIMENOrdering Facility: [facility] Address: [address] [place] [address] Performed By: #### 2 4323-8 ####[facility] LABORATORYCLIA [id number] [place] [address] [place] Creatinine [Mass/Vol] 0.71 mg/dL Normal 0.58-0.96 [facility] Comment on above: Order Comment: Speci men Type: BLOOD SPECIMENOrdering Facility: [facility] Address: [address] [place] [address] Performed By: #### 2 4323-8 ####[facility] LABORATORYCLIA [id number] [place] [address] [place] Creatinine and Glomerular filtration rate.predicted panel (S/P/Bld) 124 mL/min/1.73m??? Normal >=60 [facility] Comment on above: Order Comment: Sara covarrubias Type: BLOOD SPECIMENOrdering Facility: [facility] Address: [address] [place] [address] Result Comment: Caryl mated Glomerular Filtration Rate (eGFR) is calculated using the 2020 CKD-EPI creatinine equation. This equation utilizes serum creatinine, sex, and age as parameters. The creatinine assay has traceable calibration to isotope dilution-mass spectrometry. Refer to KDIGO guidelines for clinical interpretation. In patients with unstable renal function, e.g. those with acute kidney injury, the eGFR may not accurately reflect actual GFR. Performed By: #### 2 4323-8 ####[facility]ITALCLIA [id number] [place] [address] [place] Glucose [Mass/Vol] 91 mg/dL Normal 74-99 [facility] Comment on above: Order Comment: Sara covarrubias Type: BLOOD SPECIMENOrdering Facility: [facility] Address: [address] [place] [address] Result Comment: The [place] Diabetes Association (ADA) provides guidance for cutoff values for fasting glucose and random glucose. The ADA defines fasting as no caloric intake for at least 8 hours. Fasting plasma glucose results between 100 to 125 mg/dL indicate increased risk for diabetes (prediabetes). Fasting plasma glucose results greater than or equal to 126 mg/dL meet the criteria for diagnosis of diabetes. In the absence of unequivocal hyperglycemia, results should be confirmed by repeat testing. In a patient with classic symptoms of hyperglycemia or hyperglycemic crisis, random plasma glucose results greater than or equal to 200 mg/dL meet the criteria for diagnosis of diabetes. Reference: Standards of Medical Care in Diabetes 2016, [place] Diabetes Association. Diabetes Care. 2016.39(Suppl 1). Performed By: #### 2 4323-8 ####[facility] LABORATORYCLIA [id number] [place] [id number] [place] Potassium [Moles/Vol] 3.7 mmol/L Normal 3.7-5.1 [facility] Comment on above: Order Comment: Sara covarrubias Type: BLOOD SPECIMENOrdering Facility: [facility] Address: [address] [place] [address] Performed By: #### 2 4323-8 ####[facility] LABORATORYCLIA [id number] [address] STATES OF [facility] Protein [Mass/Vol] 7.8 g/dL Normal 6.3-8.0 [facility] Comment on above: Order Comment: Speci men Type: BLOOD SPECIMENOrdering Facility: [facility] Address: [address] [place] [address] Performed By: #### 2 4323-8 ####[facility] LABORATORYCLIA [id number] [address] [place] Sodium [Moles/Vol] 137 mmol/L Normal 136-144 [facility] Comment on above: Order Comment: Speci men Type: BLOOD SPECIMENOrdering Facility: [facility] Address: [address] [place] [address] Performed By: #### 2 4323-8 ####[facility] LABORATORYCLIA [id number] [address] STATES OF [facility] Urea nitrogen [Mass/Vol] 10 mg/dL Normal 7-21 [facility] Comment on above: Order Comment: Speci men Type: BLOOD SPECIMENOrdering Facility: [facility] Address: [address] [place] [address] Performed By: #### 2 4323-8 ####[facility] LABORATORYCLIA [id number] [place] [address] [place] ESR Westergren method (Bld) [Velocity]on 12-01-2024 ESR (Bld) [Velocity] 25 mm/h High 0-20 [facility] Comment on above: Order Comment: Speci men Type: BLOOD SPECIMENOrdering Facility: [facility] Address: [address] [place] [address] Performed By: #### 4 537-7 ####[facility] LABCLIA [id number] [facility] [id number] [place] GLIADIN (DEAMIDATED) AB, IGA on 12-01-2024 GLIAD DEAMIDATED IGA QUAL Negative Normal Negative, Test not Indicated [facility] Comment on above: Order Comment: Sara covarrubias Type: BLOOD SPECIMENOrdering Facility: [facility] Address: [address] [place] [address] Result Comment: This is used as an aid in diagnosis of celiac disease. Clinical correlation is required. The following results were obtained with an Inova QUANTA Lite Gliadin IgA SILVIA Gliadin. Gliadin IgA values obtained with different manufacturers' assay methods may not be used interchangeably. The magnitude of the reported IgA levels cannot be correlated to an endpoint titer. Performed By: #### LISA CHO ####[facility] LABIA [id number] [address] [place] Gliadin peptide IgA Qn (S) 2 Units Normal <20 [facility] Comment on above: Order Comment: Sara covarrubias Type: BLOOD SPECIMENOrdering Facility: [facility] Address: [address] [place] [address] Performed By: #### LISA CHO ####[facility] LABIA [id number] [place] [address] [facility] [place] GLIADIN (DEAMIDATED) AB, IGG on 12-01-2024 GLIAD DEAMIDATED IGG QUAL Negative Normal Negative, Test not Indicated [facility] Comment on above: Order Comment: Sara covarrubias Type: BLOOD SPECIMENOrdering Facility: [facility] Address: [address] [place] [address] Result Comment: This test is used as an aid in diagnosis of celiac disease in IgA-deficient individuals only. Clinical correlation is required. The following results were obtained with an Inova QUANTA Lite Gliadin IgG SILVIA Gliadin. Gliadin IgG values obtained with different manufacturers' assay methods may not be used interchangeably. The magnitude of the reported IgG levels cannot be correlated to an endpoint titer. Performed By: #### LISA CHO ####[facility] LABCLIA [id number] [id number] [address] [place] Gliadin peptide IgG Qn (S) 2 Units Normal <20 [facility] Comment on above: Order Comment: Speci men Type: BLOOD SPECIMENOrdering Facility: [facility] Address: [address] [place] [address] Performed By: #### G PHILLDerik PATRICIAFabian ####[facility] LABCLIA [id number] [place] [address] [place] HCG ( test) Ql (U)O rdered By: Fawad Carpenter on 12-01-2024 Interpretation and review of laboratory results Normal [facility] HCG Preg Ur Qlon 12-01-2024 HCG ( test) Ql (U) Negative Normal Negative [facility] Comment on above: Order Comment: Speci men Type: URINE SPECIMENOrdering Facility: [facility] Address: [address] [place] [address] Result Comment: This test is intended to aid in the early detection of . Very dilute urine samples, as indicated by a low specific gravity, may not contain direct marketing representative levels of hCG. This test detects intact hCG only. This test does not reliably detect hCG degradation products, including free-beta subunit and beta-core fragment. Therefore, this test may show reduced reactivity in urine after 8 weeks gestation. A number of conditions other than , including trophoblastic disease and certain non-trophoblastic neoplasms cause elevated levels of hCG. As with any assay employing mouse antibodies, the possibility exists for interference by human anti-mouse antibodies (HAMA) in the specimen. The test provides a presumptive diagnosis for . Performed By: #### 2 106-3 ####[facility] LABORATORYCLIA [id number] [place] [address] [place] HCG, QUALITATIVE, URINE PREG NANCYOrdered By: Fawad Carpenter on 12-01-2024 HCG ( test) Ql (U) Negative Negative [facility] Comment on above: This test is intende d to aid in the early detection of . Very dilute urine samples, as indicated by a low specific gravity, may not contain direct marketing representative levels of hCG. This test detects intact hCG only. This test does not reliably detect hCG degradation products, including free-beta subunit and beta-core fragment. Therefore, this test may show reduced reactivity in urine after 8 weeks gestation. A number of conditions other than , including trophoblastic disease and certain non-trophoblastic neoplasms cause elevated levels of hCG. As with any assay employing mouse antibodies, the possibility exists for interference by human anti-mouse antibodies (HAMA) in the specimen. The test provides a presumptive diagnosis for . HCV Ab Ql (S)on 12-01-2024 Interpretation and review of laboratory results Normal [facility] HCV Ab Ser Qlon 12-01-2024 HCV Ab Ql (S) Non-Reactive Normal Nonreactive [facility] Comment on above: Order Comment: Speci men Type: BLOOD SPECIMENOrdering Facility: [facility] Address: [address] [place] [address] Result Comment: The result suggests no evidence of active infection with Hepatitis C virus. Should recent infection be suspected, repeat testing may be considered 4-6 weeks after this draw. Performed By: #### 1 6128-1 ####[facility] LABORATORYCLIA [id number] [address] HEPATITIS C ANTIBODY IA WITH CONFIRMATIONon 12-01-2024 HCV Ab Ql (S) Non-Reactive Nonreactive [facility] Comment on above: The result suggests no evidence of active infection with Hepatitis C virus. Should recent infection be suspected, repeat testing may be considered 4-6 weeks after this draw. tTG IgA Qn (S)on 12-01-2024 TRANSGLUTAMINASE IGA ABS INTERPRETATION Negative Normal Negative [facility] Comment on above: Order Comment: Antionettei satish Type: BLOOD SPECIMENOrdering Facility: [facility] Address: [address] [place] [address] Result Comment: The following results were obtained with Reclip.It QUANTA Lite R h-tTG IgA SILVIA.???R h-tTG IgA values obtained with different manufacturers' assay methods may not be used interchangeably. The magnitude of the reported IgA levels cannot be correlated to an endpoint???concentration. This is used as an aid in diagnosis of celiac disease. Clinical correlation is required. Performed By: #### 3 1017-7, 45677-5 ####[facility] LABCLIA [id number] [place] [address] [place] tTG IgA Ser-aCncon 5 tTG IgA Qn (S) <2 Normal <4 [facility] Comment on above: Order Comment: Speci men Type: BLOOD SPECIMENOrdering Facility: [facility] Address: [address] [place] [address] Performed By: #### 3 1017-7, 58053-1 ####[facility] LABCLIA [id number] [place] [address] [place] tTG IgG Qn (S)on 12-01-2024 TRANSGLUTAMINASE IGG ABS INTERPRETATION Negative Normal Negative [facility] Comment on above: Order Comment: Speci men Type: BLOOD SPECIMENOrdering Facility: [facility] Address: [address] [place] [address] Result Comment: The following results were obtained with Dep-XploraA [employer] R h-tTG IgG SILVIA.???R h-tTG IgG values obtained with different manufacturers' assay methods may not be used interchangeably. The magnitude of the reported IgG levels cannot be correlated to an endpoint???concentration. This test is used as an aid in diagnosis of celiac disease in IgA-deficient individuals only. Clinical correlation is required. Performed By: #### 3 1017-7, 96705-9 ####[facility] LABCLIA [id number] [place] [address] [place] tTG IgG Ser-aCncon 5 tTG IgG Qn (S) 3 U/mL Normal <6 [facility] Comment on above: Order Comment: Speci men Type: BLOOD SPECIMENOrdering Facility: [facility] Address: [address] [place] [address] Performed By: #### 3 1017-7, 54628-7 ####[facility] LABCLIA [id number] [place] [address] [place] BACTERIAL VAGINOSIS NAATon 0 11-07-2024 Lactobacillus crispatus+gasseri+garfield senii + Gardnerella vaginalis + Atopobium vaginae rRNA KATHLEEN+probe Ql (Vag fld) Not detected Normal Not detected [facility] Comment on above: Order Comment: Speci men Type: SWABOrdering Facility: [facility] Address: [address] [place] [address] Performed By: #### 3 6902-5, BVAMP ####[facility] LABCLIA [id number] [place] [address] [place] C. trachomatis+N. gonorrhoea e DNA KATHLEEN+probe Ql (Unsp spec)on 11-07-2024 C. trachomatis rRNA KATHLEEN+probe Ql (Unsp spec) Not detected Normal Not detected [facility] Comment on above: Order Comment: Speci men Type: SWABOrdering Facility: [facility] Address: [address] [place] [address] Performed By: #### 3 6902-5, BVAMP ####[facility] LABCLIA [id number] [place] [address] [place] N. gonorrhoeae rRNA KATHLEEN+probe Ql (Unsp spec) Not detected Normal Not detected [facility] Comment on above: Order Comment: Speci men Type: SWABOrdering Facility: [facility] Address: [address] [place] [address] Performed By: #### 3 6902-5, BVAMP ####[facility] LABCLIA [id number] [place] [address] [place] RACHEL/TRICHOMONAS NAATon 0 11-07-2024 C. glabrata RNA KATHLEEN+probe Ql (Vag fld) Not detected Normal Not detected [facility] Comment on above: Order Comment: Speci men Type: SWABOrdering Facility: [facility] Address: [address] [place] [address] Performed By: #### C VTV ####[facility] LABCLIA [id number] [place] [address] [place] Rachel sp DNA KATHLEEN+probe Ql (Vag fld) Not detected Normal Not detected [facility] Comment on above: Order Comment: Speci men Type: SWABOrdering Facility: [facility] Address: [address] [place] [address] Result Comment: The Rachel species group target includes C. albicans, C. tropicalis, C. parapsilosis, and C. dubliniensis. Performed By: #### C VTV ####[facility] LABCLIA [id number] [address] [place] T. vaginalis DNA KATHLEEN+probe Ql (Unsp spec) Not detected Normal Not detected [facility] Comment on above: Order Comment: Speci men Type: SWABOrdering Facility: [facility] Address: [address] [place] [address] Performed By: #### C VTV ####[facility] LABCLIA [id number] [address] OF [place] CNOVon 11-07-2024 CNOV Office Visit (OBGYWM ) -------- TIANNA LOUIS ([id number]) 1 F Date Time Provider Department 11/07/24 9:30 AM ABHAY BONE OBGYWM During your visit today, we recorded the following information about you: Blood pressure Weight Last Period 108/76 57.2 kg 10/13/24 Abhay Bone APRN.CNM 11/07/2024 9:53 AM Signed Tianna Louis is a 19 year old female who presents for follow up visit. HPI: Reports three weeks ago developing and bartholin gland cyst on left side. She was trying to decrease size and pain by using sitz baths, warm compresses etc. Stated continued to grow and get more painful. Seen at Urgent Care last week and had cyst drained. No culture taken. Not placed on antibiotics. Was told to follow up with [facility]. She denies any current pain. Some vaginal discharge with itching. Verbal consent for STD screening with vaginal swabs. 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 She was told that she may need to follow with general surgery. Abhay Bone APRN.CNM Pilonidal cyst 2022 PAST SURGICAL HISTORY Procedure Laterality Date APPENDECTOMY patient was in 6th grade PAST SURGICAL HISTORY OF Left 04/07/2022 Benign Cyst Removal from [facility] FAMILY HISTORY Problem Relation Age of Onset Breast Cancer Maternal Grandmother possible Endometrial Cancer as well Social History Tobacco Use Smoking status: Never Smokeless tobacco: Never Tobacco comments: vapes Vaping Use Vaping status: current everyday user Substance Use Topics Alcohol use: Not Currently Drug use: Yes Types: Marijuana Current Outpatient Medications Medication Sig dicyclomine (BENTYL) 20 mg tablet Take 20 mg by mouth once daily. escitalopram oxalate (LEXAPRO) 5 mg tablet Take 1 tablet by mouth once daily. No current facility-administered medications for this visit. Allergies As of Date: 11/07/2024 Allergen Noted Reaction BACTRIM [SULFAMETHOXAZOLE-TRIMET H*06/10/2023 Vomiting Fully Assessed 11/07/2024 REVIEW OF SYSTEMS Abdomen: No bloating, early satiety, indigestion, or increased flatulence. No abdominal pain, nausea, vomiting, diarrhea, or constipation. Bladder: No dysuria, gross hematuria, urinary frequency, urinary urgency, or incontinence. Breast: No breast lumps, nipple d/c, overlying skin changes, redness or skin retraction. Expanded ROS: N/A Allergies and current medication updated:Yes SENSITIVE EXAM: The sensitive examination was discussed with the Patient or Patient's Authorized Search Engine Optimization Analyst. As applicable, any other physician, advance practice provider, medical student, or other health professional student that will be observing or involved in the sensitive examination for educational or training purposes was discussed with the Patient or Authorized Search Engine Optimization Analyst. The Patient or Authorized Search Engine Optimization Analyst has agreed to proceed with the sensitive examination. (Sensitive examination includes inspection and/or palpation of the breasts, pelvis, prostate and anorectal regions). EXAM: BP 108/76 Wt 126 lb (57.2kg) LMP 10/13/2024 GENERAL: pleasant, female in no apparent distress HEENT: Normocephalic and atraumatic NECK: Supple and full range of motion DERMATOLOGY: Normal and without lesions BREAST: deferred CHEST: Normal inspiratory effort ABDOMEN: soft and non-tender PELVIC: external genitalia normal, normal Bartholin's glands, urethra, [place]'s glands, no vulvar lesions, no cervical lesions, good vaginal support, normal appearing perineal body and perianal region No bartholin cyst visible. Increased amount of thick, white discharge BIMANUAL: uterus normal size, shape and consistency, no adnexal masses, non-tender, and no cervical motion tenderness NEURO: alert and oriented x3,exam grossly non-focal EXTREMITIES: normal ASSESSMENT AND PLAN: Assessment AND Plan Screen for STD (sexually transmitted disease) Vaginal discharge Acute vaginitis Bartholin cyst - GC/CH, BACT/YEAST collected and sent - Discussed placement of drain if gland becomes inflamed again - RTO as needed/Yearly exams - Will notify patient of results Abhay Bone APRN.CNM Allergies As of Date: 11/07/2024 Noted Allergy Reaction BACTRIM (SULFAMETHOXAZOLE-TRIMET H*06/10/2023 11 - Vomiting Date Reviewed: 11/07/2024 Reviewed by: Tra Knowles MA - Fully Assessed Reason for Visit: Bartholin cyst [Other] Primary Visit Diagnosis:Screen for STD (sexually transmitted disea (more content not included)... Normal [facility] Abdomen/Pelvis W IV Cont ONL Yon 11-02-2024 Abdomen/Pelvis W IV Cont ONLY [facility] Imaging Services [address] [place] [address] Abdomen/Pelvis W IV Cont ONLY MR#: [id number] Acct: [id number] Name: TIANNA LOUIS Rep #: [id number] : 2005 F 19 From: Kristopher bosch MD PCP: Dr. Waldo Good DO Status: REG ER Study: Abdomen/Pelvis W IV Cont ONLY Date of Exam: Exam# [id number] Ordering Dr: Corby Gastelum MD [id number] INDICATION: Bilateral lower quadrant abdominal pain, diarrhea EXAMINATION: CT Abdomen And Pelvis W/ Contrast Injection TECHNIQUE: Helically acquired images were obtained of the abdomen and pelvis after IV contrast. A radiation dose optimization technique was used for this scan. IV Contrast dosage and agent: IV 75mL [id number]-[id number] Oral contrast: None. COMPARISON: None. FINDINGS: Visualized lung bases: Unremarkable Liver: Unremarkable Gallbladder: Unremarkable Spleen: Unremarkable Pancreas: Unremarkable Adrenal Glands: Unremarkable Kidneys: Unremarkable Vasculature: Unremarkable GI Tract: The appendix is surgically absent. Lymphadenopathy: None Peritoneum: No ascites. Bladder: Unremarkable Reproductive organs: Unremarkable Bones/Soft tissues: No suspicious osseous or soft tissue lesions CT/Abdomen/Pelvis W IV Cont ONLY IMPRESSION: No acute abnormalities in the abdomen or pelvis. Electronically Signed: Kristopher Weems MD at 8:40 EST , CC: Dr. Waldo Good DO; Dr. oCrby Gastelum MD Pump House Operator: Signed Normal [facility] CBC W/Diff, Automatedon 10-19 Absolute Lymph 1.59 X10 3/uL Normal 0.83-4.51 [facility] Comment on above: Performed By: #### L 501.2450, L100.0100, L500.4050, L700.6800 ####[facility] [address] [place], [address] Absolute Neut 4.2 X10 3/uL Normal 2.0-7.7 [facility] Comment on above: Performed By: #### L 501.2450, L100.0100, L500.4050, L700.6800 ####[facility] [address] [place], [address] Basophils/100 WBC (Bld) 1.1 % High 0-1 [facility] Comment on above: Performed By: #### L 501.2450, L100.0100, L500.4050, L700.6800 ####[facility] [address] [place], [address] Eosinophils/100 WBC (Bld) 2.4 % Normal 0-5 [facility] Comment on above: Performed By: #### L 501.2450, L100.0100, L500.4050, L700.6800 ####[facility] [address] [place], [address] Erythrocyte distribution width (RBC) [Ratio] 12.7 % Normal 11.6-14.6 [facility] Comment on above: Performed By: #### L 501.2450, L100.0100, L500.4050, L700.6800 ####[facility] [address] [place], [address] Hematocrit (Bld) [Volume fraction] 36.2 % Low 37-47 [facility] Comment on above: Performed By: #### L 501.2450, L100.0100, L500.4050, L700.6800 ####[facility] [address] [place], [address] Hemoglobin (Bld) [Mass/Vol] 12.4 g/dL Normal 12.0-15.0 [facility] Comment on above: Performed By: #### L 501.2450, L100.0100, L500.4050, L700.6800 ####[facility] [address] [place], [address] IG% 0.500 Normal 0.0-0.9 [facility] Comment on above: Result Comment: IG% - Immature Granulocytes (promyelocytes, myelocytes and metamyelocytes) > 1% indicates that a LEFT SHIFT is Present. Performed By: #### L 501.2450, L100.0100, L500.4050, L700.6800 ####[facility] [address] [place], [address] Lymphocytes/100 WBC (Bld) 24.1 % Normal 19-41 [facility] Comment on above: Performed By: #### L 501.2450, L100.0100, L500.4050, L700.6800 ####[facility] [address] [place], [address] MCH (RBC) [Entitic mass] 30.5 pg Normal 27.0-32.0 [facility] Comment on above: Performed By: #### L 501.2450, L100.0100, L500.4050, L700.6800 ####[facility] [address] [place], [address] MCHC (RBC) [Mass/Vol] 34.3 g/dL Normal 32-36 [facility] Comment on above: Performed By: #### L 501.2450, L100.0100, L500.4050, L700.6800 ####[facility] [address] [place], [address] MCV (RBC) [Entitic vol] 88.9 fL Normal 81-99 [facility] Comment on above: Performed By: #### L 501.2450, L100.0100, L500.4050, L700.6800 ####[facility] [address] [place], [address] Monocytes/100 WBC (Bld) 8.5 % Normal 0-10 [facility] Comment on above: Performed By: #### L 501.2450, L100.0100, L500.4050, L700.6800 ####[facility] [address] [place], [address] Neutrophils/100 WBC (Bld) 63.4 % Normal 47-70 [facility] Comment on above: Performed By: #### L 501.2450, L100.0100, L500.4050, L700.6800 ####[facility] [address] [place], [address] Nucleated RBC (Bld) [#/Vol] 0 10*3/uL Normal 0-5 [facility] Comment on above: Performed By: #### L 501.2450, L100.0100, L500.4050, L700.6800 ####[facility] [address] [place], [address] Platelet mean volume (Bld) [Entitic vol] 9.9 fL Normal 6.2-12.0 [facility] Comment on above: Performed By: #### L 501.2450, L100.0100, L500.4050, L700.6800 ####[facility] [address] [place], [address] Platelets (Bld) [#/Vol] 314 10*3/uL Normal 150-450 [facility] Comment on above: Performed By: #### L 501.2450, L100.0100, L500.4050, L700.6800 ####[facility] [address] [place], [address] RBC (Bld) [#/Vol] 4.07 10*6/uL Low 4.2-5.4 [facility] Comment on above: Performed By: #### L 501.2450, L100.0100, L500.4050, L700.6800 ####[facility] [address] [place], [address] RDW SD 41.7 fl Normal 35.1-43.9 [facility] Comment on above: Performed By: #### L 501.2450, L100.0100, L500.4050, L700.6800 ####[facility] [address] [place], [address] WBC (Bld) [#/Vol] 6.6 10*3/uL Normal 4.4-11.0 [facility] Comment on above: Performed By: #### L 501.2450, L100.0100, L500.4050, L700.6800 ####[facility] [address] [place], [address] Chest 1 View (Portable)on Chest 1 View (Portable) [facility] Imaging Services [address] [place] [address] Chest 1 View (Portable) MR#: [id number] Acct: [id number] Name: TIANNA LOUIS Rep #: [id number] : 2005 F 19 From: Kristopher bosch MD PCP: Dr. Waldo Good DO Status: REG ER Study: Chest 1 View (Portable) Date of Exam: 11/02/24 Exam# [id number] Ordering Dr: Cobry Gastelum MD [id number] INDICATION: Shortness of breath EXAMINATION/TECHNIQUE: X-RAY - XR Chest 1 View COMPARISON: 08/31/2024. FINDINGS: The lungs are clear. The cardiomediastinal silhouette is unremarkable. No pleural effusion or pneumothorax. No acute osseous abnormalities. RAD/Chest 1 View (Portable) IMPRESSION: No acute radiographic abnormalities. Electronically Signed: Kristopher Weems MD at 8:15 EST , CC: Dr. Waldo Good DO; Dr. Corby Gastelum MD Pump House Operator: Signed Normal [facility] Comprehensive Metabolic Prof ilon 11-02-2024 Albumin [Mass/Vol] 3.4 g/dL Normal 3.2-5.0 [facility] Comment on above: Performed By: #### L 501.2450, L100.0100, L500.4050, L700.6800 ####[facility] [address] [place], [address] Albumin/Globulin [Mass ratio] 0.8 {ratio} Low 0.9-2.4 [facility] Comment on above: Performed By: #### L 501.2450, L100.0100, L500.4050, L700.6800 ####[facility] [address] [place], [address] ALK P 100 U/L Normal 45-117 [facility] Comment on above: Performed By: #### L 501.2450, L100.0100, L500.4050, L700.6800 ####[facility] [address] [place], [address] ALT [Catalytic activity/Vol] 18 U/L Normal 13-56 [facility] Comment on above: Performed By: #### L 501.2450, L100.0100, L500.4050, L700.6800 ####[facility] [address] [place], [address] AST [Catalytic activity/Vol] 9 U/L Low 15-37 [facility] Comment on above: Performed By: #### L 501.2450, L100.0100, L500.4050, L700.6800 ####[facility] [address] [place], [address] Bilirubin [Mass/Vol] 0.60 mg/dL Normal 0.20-1.00 [facility] Comment on above: Result Comment: For patients on eltrombopag therapy, use of Dimension [place] TBIL is not recommended. Performed By: #### L 501.2450, L100.0100, L500.4050, L700.6800 ####[facility] [address] [place], [address] BUN/CRE 13.5 RATIO Normal 10-20 [facility] Comment on above: Performed By: #### L 501.2450, L100.0100, L500.4050, L700.6800 ####[facility] [address] [place], [address] CA,Total 9.2 mg/dL Normal 8.5-10.1 [facility] Comment on above: Performed By: #### L 501.2450, L100.0100, L500.4050, L700.6800 ####[facility] [address] [place], [address] Chloride [Moles/Vol] 106 mmol/L Normal 98-107 [facility] Comment on above: Performed By: #### L 501.2450, L100.0100, L500.4050, L700.6800 ####[facility] [address] [place], [address] CO2 [Moles/Vol] 27.0 mmol/L Normal 21.0-32.0 [facility] Comment on above: Performed By: #### L 501.2450, L100.0100, L500.4050, L700.6800 ####[facility] [address] [place], [address] Creatinine [Mass/Vol] 0.67 mg/dL Normal 0.55-1.02 [facility] Comment on above: Result Comment: The validity of the calculated GFR GFRAA in patients over 70 years has not been determined. Clinical correlation is essential. Performed By: #### L 501.2450, L100.0100, L500.4050, L700.6800 ####[facility] [address] [place], [address] ECRCL 109.87 ml/min Normal [facility] Comment on above: Performed By: #### L 501.2450, L100.0100, L500.4050, L700.6800 ####[facility] [address] [place], [address] EST GFR - AA 143 mL/min Normal >60 [facility] Comment on above: Result Comment: Afri can [place]ian GFR Calc Performed By: #### L 501.2450, L100.0100, L500.4050, L700.6800 ####[facility] [address] [place], [address] GAP 5 Normal 5-15 [facility] Comment on above: Performed By: #### L 501.2450, L100.0100, L500.4050, L700.6800 ####[facility] [address] [place], [address] GFR/1.73 sq M.predicted among non-blacks MDRD (S/P/Bld) [Vol rate/Area] 118 mL/min/{1.73_m2} Normal >60 [facility] Comment on above: Result Comment: Non- GFR Calc Performed By: #### L 501.2450, L100.0100, L500.4050, L700.6800 ####[facility] [address] [place], [address] Globulin (S) [Mass/Vol] 4.0 g/dL Normal 2.2-4.2 [facility] Comment on above: Performed By: #### L 501.2450, L100.0100, L500.4050, L700.6800 ####[facility] [address] [place], [address] Glucose [Mass/Vol] 90 mg/dL Normal 74-106 [facility] Comment on above: Performed By: #### L 501.2450, L100.0100, L500.4050, L700.6800 ####[facility] [address] [place], [address] Potassium [Moles/Vol] 3.6 mmol/L Normal 3.5-5.1 [facility] Comment on above: Performed By: #### L 501.2450, L100.0100, L500.4050, L700.6800 ####[facility] [address] [place], [address] Sodium [Moles/Vol] 139 mmol/L Normal 136-145 [facility] Comment on above: Performed By: #### L 501.2450, L100.0100, L500.4050, L700.6800 ####[facility] [address] [place], [address] T PROT 7.4 g/dL Normal 6.4-8.2 [facility] Comment on above: Performed By: #### L 501.2450, L100.0100, L500.4050, L700.6800 ####[facility] [address] [place], [address] Urea nitrogen [Mass/Vol] 9 mg/dL Normal 7-18 [facility] Comment on above: Performed By: #### L 501.2450, L100.0100, L500.4050, L700.6800 ####[facility] [address] [place], [address] Emergency Department Summary on 11-02-2024 Emergency Department Summary [facility] Medical Records Department [address] [place] [address] Emergency Department Summary 11/02/24 MR#: [id number] Acct: [id number] Name: TIANNA LOUIS Rep #: [id number] : 2005 19 From: Corby Gastelum MD PCP: Dr. Waldo Good, DO Status:REG ER Location: ED HPI HPI - GI History of Present Illness Chief Complaint: Diarrhea Narrative Narrative: 19-year-old female presents with multiple episodes of diarrhea, approximately 9 in the last 2 hours. She states that for the last 14 months, she wakes up, and also feels short of breath. She has to lay on the floor and today she developed abdominal pain. She states that over the last 14 months since she had her child, she has diarrhea. Has been seen in the emergency department and worked up and states that she also wore a Holter monitor ordered by her primary care provider but does not have any results. She is here mainly because she had multiple episodes of diarrhea, and may feel little lightheaded today. She has not followed up with gastroenterology, but was told she may have irritable bowel syndrome. She complains of bilateral lower quadrant pain as well. Past abdominal surgeries include and appendectomy. No nausea or vomiting. Additionally, she states that recently she had a cyst drained but has not had any antibiotics. [facility] Medical History Abscess Anorexia PTSD (post-traumatic stress disorder) Depression Headache Vaginal cyst Home Medications ???Medication ???Instructions ???Recorded ???Last Taken ???Type NK 09/26/24 Unknown History dicyclomine 20 mg tablet 20 mg PO TID PRN abdominal pain 11/02/24 Unknown Rx #20 tabs Allergy/AdvReac Type Severity Reaction Status Date / Time sulfamethoxazole (From AdvReac Mild Vomiting Verified 11/02/24 07:09 Bactrim) trimethoprim (From Bactrim) AdvReac Mild Vomiting Verified 11/02/24 07:09 Surgical History History of appendectomy History of appendectomy Social History household members: significant other Smoking Status: Heavy Smoker (>10/day) alcohol intake: former substance use type: former substance user Date of last use: Marijuana ROS ROS ED ROS Narrative Constitutional: No fever, no chills. HEENT: No sore throat. No neck pain. No loss of vision. No rhinorrhea. Cardiovascular: No chest pain. No palpitations. No pedal edema. Respiratory: No cough, positive shortness of breath. Abdominal: Bilateral lower quadrant abdominal pain. No nausea. No vomiting. 9 episodes of watery diarrhea today in the last 2 hours. Genitourinary: No dysuria. No hematuria. Musculoskeletal: No myalgias. No arthralgias. Neurologic: No headaches. No dizziness. Positive lightheadedness. Skin: No rash. No change in color. Psychiatric: No depression. No anxiety. EXAM Physical Exam Narrative Exam Narrative: Afebrile. Vital signs noted. Nontoxic-appearing. Cardiovascular examination reveals mild tachycardia without ectopy or extrasystoles. Lungs are clear to auscultation bilaterally. Abdomen is soft with mild tenderness to palpation in the bilateral lower quadrants, left greater than right. No rebound or guarding. Positive bowel sounds. Neurological examination is nonfocal and nonlateralizing. Const Vital Signs: 11/02/24 07:06 Temperature 97 F L Temperature Source Oral Pulse Rate 110 H Respiratory Rate 19 H Blood Pressure 110/84 H Blood Pressure Mean 92 Pulse Ox 99 MDM MDM MDM Narrative Medical decision making narrative: Regarding her shortness of breath, differential diagnosis includes but not limited to pneumonia versus pneumothorax versus pulmonary embolism. I have very low suspicion for pulmonary embolism because she does not have any risk factors, no leg swelling, and her oxygen saturation is 99% on room air. Her tachycardia has longstanding for which she wore a Holter monitor. Additionally her Wells score is low. Regarding her diarrhea, differential diagnosis includes but not limited to C. difficile versus diverticulitis versus gastroenteritis versus inflammatory bowel disease versus IBS. Also included would be partial small bowel obstruction given her past surgical history. Comprehensive workup was pursued. I will also check her for dehydration, and pancreatitis, but a lot of her pain is lower and she is not really vomiting. I reviewed the laboratory work from today and she has a normal white count of 6.6 with hemoglobin normal at 12.4, platelet count normal at 314. CMP is remarkable for a low AST of 9, but normal sodium and potassium, BUN normal at 9 and creatinine 0.67. No evidence of dehydration. Serum test is negative. Lipase (more content not included)... Normal [facility] Lipaseon 11-02-2024 Lipase [Catalytic activity/Vol] 26 U/L Normal 13-75 [facility] Comment on above: Result Comment: Robbie alvarado note: LIPASE revised reference range effective 23. New Lipase methodology. Expected to produce lower values than the previous assay method. NEW Reference Range: 13 - 75 U/L Performed By: #### L 501.2450, L100.0100, L500.4050, L700.6800 ####[facility] [address] [place], [address] ,Serum,hCG Quali.on 11-02-2024 HCG, SERUM QUAL Negative Normal [facility] Comment on above: Performed By: #### L 501.2450, L100.0100, L500.4050, L700.6800 ####[facility] [address] [place], [address] Urinalysis, Completeon 11-02 BACTERIA Normal None Seen [facility] Comment on above: Order Comment: CLEAN CATCH Result Comment: PT D ISCHARGED Performed By: #### L 400.0001 ####[facility] [address] [place], [address] BILIRUBIN URINE Normal Negative [facility] Comment on above: Order Comment: CLEAN CATCH Result Comment: PT D ISCHARGED Performed By: #### L 400.0001 ####[facility] [address] [place], [address] Clarity (U) Normal Clear [facility] Comment on above: Order Comment: CLEAN CATCH Result Comment: PT D ISCHARGED Performed By: #### L 400.0001 ####[facility] [address] [place], [address] Color (U) Normal Yellow [facility] Comment on above: Order Comment: CLEAN CATCH Result Comment: PT D ISCHARGED Performed By: #### L 400.0001 ####[facility] [address] [place], [address] EPI,SQUAMOUS Normal 5-10 [facility] Comment on above: Order Comment: CLEAN CATCH Result Comment: PT D ISCHARGED Performed By: #### L 400.0001 ####[facility] [address] [place], [address] GLUCOSE, UR Normal Normal [facility] Comment on above: Order Comment: CLEAN CATCH Result Comment: PT D ISCHARGED Performed By: #### L 400.0001 ####[facility] [address] [place], [address] KETONE UR Normal Negative [facility] Comment on above: Order Comment: CLEAN CATCH Result Comment: PT D ISCHARGED Performed By: #### L 400.0001 ####[facility] [address] [place], [address] LEUK ESTERASE Normal Negative [facility] Comment on above: Order Comment: CLEAN CATCH Result Comment: PT D ISCHARGED Performed By: #### L 400.0001 ####[facility] [address] [place], [address] Mucus Ql (Urine sed) Normal [facility] Comment on above: Order Comment: CLEAN CATCH Result Comment: PT D ISCHARGED Performed By: #### L 400.0001 ####[facility] [address] [place], [address] Nitrite Ql (U) Normal Negative [facility] Comment on above: Order Comment: CLEAN CATCH Result Comment: PT D ISCHARGED Performed By: #### L 400.0001 ####[facility] [address] [place], [address] OCCULT BLOOD-UR Normal Negative [facility] Comment on above: Order Comment: CLEAN CATCH Result Comment: PT D ISCHARGED Performed By: #### L 400.0001 ####[facility] [address] [place], [address] pH UR Normal 5.0 - 8.0 [facility] Comment on above: Order Comment: CLEAN CATCH Result Comment: PT D ISCHARGED Performed By: #### L 400.0001 ####[facility] [address] [place], [address] PROT DIPSTX Normal Negative [facility] Comment on above: Order Comment: CLEAN CATCH Result Comment: PT D ISCHARGED Performed By: #### L 400.0001 ####[facility] [address] [place], [address] RBC Normal 0-5 [facility] Comment on above: Order Comment: CLEAN CATCH Result Comment: PT D ISCHARGED Performed By: #### L 400.0001 ####[facility] [address] [place], [address] SP.GR. DIPSTX Normal 1.002-1.030 [facility] Comment on above: Order Comment: CLEAN CATCH Result Comment: PT D ISCHARGED Performed By: #### L 400.0001 ####[facility] [address] [place], [address] UR Preservative Normal [facility] Comment on above: Order Comment: CLEAN CATCH Result Comment: PT D ISCHARGED Performed By: #### L 400.0001 ####[facility] [address] [place], [address] UROBILI Normal Normal [facility] Comment on above: Order Comment: CLEAN CATCH Result Comment: PT D ISCHARGED Performed By: #### L 400.0001 ####[facility] [address] [place], [address] WBC Normal 0-5 [facility] Comment on above: Order Comment: CLEAN CATCH Result Comment: PT D ISCHARGED Performed By: #### L 400.0001 ####[facility] [address] [place], [address] [facility]) [facility] TIANNA LOUIS ([id number]) 1 F Date Time Provider Department 10/31/24 MED TAYLOR During your visit today, we recorded the following information about you: Allergies As of Date: 10/31/2024 Noted Allergy Reaction BACTRIM (SULFAMETHOXAZOLE-TRIMET H*06/10/2023 11 - Vomiting Date Reviewed: 09/27/2024 Reviewed by: Mary Coronado LPN - Fully Assessed Prescriptions as of 10/31/2024 - escitalopram oxalate (LEXAPRO) 5 mg tablet Take 1 tablet by mouth once daily. 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] 07/07/2023 Anemia complicating , third trimester *08/05/2023 Tachycardia [R00.0] 09/14/2023 Tiredness [R53.83] 09/14/2023 Palpitations [R00.2] 10/13/2024 Encounter Status:Closed by MED CARTAGENA on 10/31/24 [facility] POLYSOMNOGRAM (PSG)/HOME SLE EP APNEA TEST (HSAT)on 10-19-2024 POLYSOMNOGRAM (PSG)/HOME SLEEP APNEA TEST (HSAT) [facility] at [address], [address], [place] [address] ; Home Sleep Apnea Test (HSAT) Study Report Name: TIANNA LOUIS Date of Study: 10/19/2024 [facility]#: [id number] Age: 19 (: 2005) ESS: 09/11 Neck Circ. (cm): N/A Height (cm): 160.0 Weight (kg): 56.4 BMI: 22.0 Referring Provider: RUBIN BORREGO Mailcode: N/A Sleep history: The patient is a 19 year old female with a history of daytime sleepiness, fatigue, daytime napping, snoring, witnessed apneas, multiple awakenings from sleep, waking up with dry mouth/sore throat, and mouth breathing. The patient is here for assessment of obstructive sleep apnea. The patient endorses being a habitual side sleeper. Pertinent medical history: Anxiety, Depression Medications: Lexapro Sleep procedure: PSG unattended Type III, minimum of 4 parameters (33434) Procedure: This study was performed using a Type III ambulatory PSG device and was unattended. The patient was instructed on proper use of the device by a registered isotope technologist. The monitored parameters included heart rate, oxygen saturation, continuous airflow with thermistor and nasal pressure transducer, snoring via nasal pressure transducer, chest and abdominal effort, and body position. MICHELLE definition: Respiratory event index (MICHELLE), calculated as respiratory events x 60 / TRT (total recording time in minutes). Note: the apnea hypopnea index has been replaced by the respiratory event index for home sleep apnea test. Since the home sleep apnea test does not measure sleep, the MICHELLE is most accurate index of respiratory events. The MICHELLE is a surrogate of the AHI per the AASM Manual for Scoring of Sleep and Associated Events version 3. Apnea definition: The peak signal excursions drop by >90% of pre-event baseline using an oronasal thermal sensor (diagnostic study), PAP device flow (titration study) or an alternative apnea sensor (diagnostic study). The duration of the >90% drop in signal excursion is >=10 seconds. Hypopnea definition: The peak signal excursions drop by >= 30% of pre-event baseline using nasal pressure (diagnostic study), PAP device flow (titration study) or an alternative hypopnea sensor (diagnostic study). The duration of the >= 30% drop in signal excursion is >=10 seconds. There is a greater than or equal to 3% oxygen desaturation from pre-event baseline. RESPIRATORY DATA: The study started at 02:23:48 and ended at 06:14:23 and the total recording time was 230 minutes. By convention, sleep is assumed for the whole recording. Snoring was noted. There was a total of 4 respiratory events. Of these events, the total number of apneas was 2 (1 obstructive, 0 mixed, and 1 central (25.0%)) and 2 hypopneas. The central apnea index (CATHY) was 0.3. The respiratory event index (MICHELLE) was 1.0 events per hour of study time. The mean oxygen saturation during the study was 97.0%, with a minimum oxygen saturation of 93.0%. The patient spent 0.0 minutes at oxygen saturation measured less than 90% (0.0% of recording time) and 0.0 minutes at oxygen saturation measured at or less than 88% (0.0% of recording time). Time MICHELLE/AHI Supine 99.5 min 1.2 Off-Supine 131.0 min 0.9 Total 230.5 min 1.0 ECG DATA: The average heart rate was 76 bpm with a range of 53 bpm to 118 bpm. ICSD DIAGNOSIS: Primary Snoring [R06.83] Sleep Disorder, Unspecified [G47.9] IMPRESSION/RECOMMENDATIO NS: 1. This study neither confirms nor refutes a diagnosis of obstructive sleep apnea as HSAT does not measure certain types of respiratory events that can only be measured on an in-laboratory polysomnogram 2. Recommend an in-laboratory polysomnogram if sleep apnea remains highly suspected. INTERPRETING PHYSICIAN: TEDDY Garrett, DO MS I attest that I have performed epoch by epoch review of the entire raw data and find this study to be technically adequate. Report Digitally Signed By: JENN GARRETT (10/31/2024 11:53:45 AM) Normal [facility] CBC W Auto Differential pane l (Bld)on 09-27-2024 Basophils (Bld) [#/Vol] 0.06 10*3/uL [facility] Basophils/100 WBC (Bld) 0.8 % [facility] Differential cell count method Nom (Bld) Auto [facility] Eosinophils (Bld) [#/Vol] 0.13 10*3/uL [facility] Eosinophils/100 WBC (Bld) 1.6 % [facility] Erythrocyte distribution width (RBC) [Ratio] 13.2 % 11.5 - 15.0 % [facility] Hematocrit (Bld) [Volume fraction] 39.7 % 36.0 - 46.0 % [facility] Hemoglobin (Bld) [Mass/Vol] 13.1 g/dL 11.5 - 15.5 g/dL [facility] Immature granulocytes (Bld) [#/Vol] 0.06 10*3/uL [facility] Immature granulocytes/100 WBC (Bld) 0.8 % [facility] Lymphocytes (Bld) [#/Vol] 2.01 10*3/uL [facility] Lymphocytes/100 WBC (Bld) 25.4 % [facility] MCH (RBC) [Entitic mass] 30.3 pg 26.0 - 34.0 pg [facility] MCHC (RBC) [Mass/Vol] 33.0 g/dL 30.5 - 36.0 g/dL [facility] MCV (RBC) [Entitic vol] 91.7 fL 80.0 - 100.0 fL [facility] Monocytes (Bld) [#/Vol] 0.47 10*3/uL [facility] Monocytes/100 WBC (Bld) 5.9 % [facility] Neutrophils (Bld) [#/Vol] 5.19 10*3/uL [facility] Neutrophils/100 WBC (Bld) 65.5 % [facility] Nucleated RBC (Bld) [#/Vol] [facility] Nucleated RBC/100 WBC (Bld) [Ratio] 0.0 % /100 WBC [facility] Platelet mean volume (Bld) [Entitic vol] 10.7 fL 9.0 - 12.7 fL [facility] Platelets (Bld) [#/Vol] 369 10*3/uL [facility] RBC (Bld) [#/Vol] 4.33 10*6/uL 3.90 - 5.2 0 m/uL [facility] WBC (Bld) [#/Vol] 7.92 10*3/uL [facility] Basophils (Bld) [#/Vol] 0.06 10*3/uL Normal <0.11 [facility] Comment on above: Order Comment: Speci men Type: BLOOD SPECIMENOrdering Facility: [facility] Address: [address] [place] [address] Performed By: #### 5 7021-8 ####[facility]ATORYCLIA [id number] [address] [place] Basophils/100 WBC (Bld) 0.8 % Normal [facility] Comment on above: Order Comment: Speci men Type: BLOOD SPECIMENOrdering Facility: [facility] Address: [address] [place] [address] Performed By: #### 5 7021-8 ####[facility] LABORATORYCLIA [id number] [address] [place] Differential cell count method Nom (Bld) Auto Normal [facility] Comment on above: Order Comment: Speci men Type: BLOOD SPECIMENOrdering Facility: [facility] Address: [address] [place] [address] Performed By: #### 5 7021-8 ####[facility] LABORATORYCLIA [id number] [address] [place] Eosinophils (Bld) [#/Vol] 0.13 10*3/uL Normal <0.46 [facility] Comment on above: Order Comment: Speci men Type: BLOOD SPECIMENOrdering Facility: [facility] Address: [address] [place] [address] Performed By: #### 5 7021-8 ####[facility]ORYCLIA [id number] [address] [place] Eosinophils/100 WBC (Bld) 1.6 % Normal [facility] Comment on above: Order Comment: Speci men Type: BLOOD SPECIMENOrdering Facility: [facility] Address: [address] [place] [address] Performed By: #### 5 7021-8 ####[facility] LABORATORYCLIA [id number] [address] [place] Erythrocyte distribution width (RBC) [Ratio] 13.2 % Normal 11.5-15.0 [facility] Comment on above: Order Comment: Speci men Type: BLOOD SPECIMENOrdering Facility: [facility] Address: [address] [place] [address] Performed By: #### 5 7021-8 ####[facility] LABORATORYCLIA [id number] [address] [place] Hematocrit (Bld) [Volume fraction] 39.7 % Normal 36.0-46.0 [facility] Comment on above: Order Comment: Speci men Type: BLOOD SPECIMENOrdering Facility: [facility] Address: [address] [place] [address] Performed By: #### 5 7021-8 ####[facility] LABORATORYCLIA [id number] [address] [place] Hemoglobin (Bld) [Mass/Vol] 13.1 g/dL Normal 11.5-15.5 [facility] Comment on above: Order Comment: Speci men Type: BLOOD SPECIMENOrdering Facility: [facility] Address: [address] [place] [address] Performed By: #### 5 7021-8 ####[facility] LABORATORYCLIA [id number] [address] [place] Immature granulocytes (Bld) [#/Vol] 0.06 10*3/uL Normal <0.10 [facility] Comment on above: Order Comment: Speci men Type: BLOOD SPECIMENOrdering Facility: [facility] Address: [address] [place] [address] Performed By: #### 5 7021-8 ####[facility]ORATORYCLIA [id number] [address] [place] Immature granulocytes/100 WBC (Bld) 0.8 % Normal [facility] Comment on above: Order Comment: Speci men Type: BLOOD SPECIMENOrdering Facility: [facility] Address: [address] [place] [address] Performed By: #### 5 7021-8 ####[facility] LABORATORYCLIA [id number] [address] Lymphocytes (Bld) [#/Vol] 2.01 10*3/uL Normal 1.00-4.00 [facility] Comment on above: Order Comment: Speci men Type: BLOOD SPECIMENOrdering Facility: [facility] Address: [address] [place] [address] Performed By: #### 5 7021-8 ####[facility] LABORATORYCLIA [id number] [address] Lymphocytes/100 WBC (Bld) 25.4 % Normal [facility] Comment on above: Order Comment: Speci men Type: BLOOD SPECIMENOrdering Facility: [facility] Address: [address] [place] [address] Performed By: #### 5 7021-8 ####[facility] LABORATORYCLIA [id number] [address] MCH (RBC) [Entitic mass] 30.3 pg Normal 26.0-34.0 [facility] Comment on above: Order Comment: Speci men Type: BLOOD SPECIMENOrdering Facility: [facility] Address: [address] [place] [address] Performed By: #### 5 7021-8 ####[facility] LABORATORYCLIA [id number] [address] MCHC (RBC) [Mass/Vol] 33.0 g/dL Normal 30.5-36.0 [facility] Comment on above: Order Comment: Speci men Type: BLOOD SPECIMENOrdering Facility: [facility] Address: [address] [place] [address] Performed By: #### 5 7021-8 ####[facility]ORATORYCLIA [id number] [address] MCV (RBC) [Entitic vol] 91.7 fL Normal 80.0-100.0 [facility] Comment on above: Order Comment: Speci men Type: BLOOD SPECIMENOrdering Facility: [facility] Address: [facility] [place] [address] Performed By: #### 5 7021-8 ####[facility]ORATORYCLIA [id number] [place] [address] [place] Monocytes (Bld) [#/Vol] 0.47 10*3/uL Normal <0.87 [facility] Comment on above: Order Comment: Speci men Type: BLOOD SPECIMENOrdering Facility: [facility] Address: [address] [place] [address] Performed By: #### 5 7021-8 ####[facility] LABORATORYCLIA [id number] [address] [place] Monocytes/100 WBC (Bld) 5.9 % Normal [facility] Comment on above: Order Comment: Speci men Type: BLOOD SPECIMENOrdering Facility: [facility] Address: [address] [place] [address] Performed By: #### 5 7021-8 ####[facility] LABORATORYCLIA [id number] [address] [place] Neutrophils (Bld) [#/Vol] 5.19 10*3/uL Normal 1.45-7.50 [facility] Comment on above: Order Comment: Speci men Type: BLOOD SPECIMENOrdering Facility: [facility] Address: [address] [place] [address] Performed By: #### 5 7021-8 ####[facility]ATORYCLIA [id number] [address] [place] Neutrophils/100 WBC (Bld) 65.5 % Normal [facility] Comment on above: Order Comment: Speci men Type: BLOOD SPECIMENOrdering Facility: [facility] Address: [address] [place] [address] Performed By: #### 5 7021-8 ####[facility]ATORYCLIA [id number] [place] Nucleated RBC (Bld) [#/Vol] 10*3/uL Normal <0.01 [facility] Comment on above: Order Comment: Speci men Type: BLOOD SPECIMENOrdering Facility: [facility] Address: [address] [place] [address] Performed By: #### 5 7021-8 ####[facility] LABORATORYCLIA [id number] [address] [place] Nucleated RBC/100 WBC (Bld) [Ratio] 0.0 /100 WBC Normal [facility] Comment on above: Order Comment: Speci men Type: BLOOD SPECIMENOrdering Facility: [facility] Address: [address] [place] [address] Performed By: #### 5 7021-8 ####[facility] LABORATORYCLIA [id number] [address] [place] Platelet mean volume (Bld) [Entitic vol] 10.7 fL Normal 9.0-12.7 [facility] Comment on above: Order Comment: Speci men Type: BLOOD SPECIMENOrdering Facility: [facility] Address: [address] [place] [address] Performed By: #### 5 7021-8 ####[facility]ORATORYCLIA [id number] [address] [place] Platelets (Bld) [#/Vol] 369 10*3/uL Normal 150-400 [facility] Comment on above: Order Comment: Speci men Type: BLOOD SPECIMENOrdering Facility: [facility] Address: [address] [place] [address] Performed By: #### 5 7021-8 ####[facility] LABORATORYCLIA [id number] [address] [place] RBC (Bld) [#/Vol] 4.33 10*6/uL Normal 3.90-5.20 [facility] Comment on above: Order Comment: Speci men Type: BLOOD SPECIMENOrdering Facility: [facility] Address: [address] [place] [address] Performed By: #### 5 7021-8 ####[facility] LABORATORYCLIA [id number] [place] [address] [place] WBC (Bld) [#/Vol] 7.92 10*3/uL Normal 3.70-11.00 [facility] Comment on above: Order Comment: Speci men Type: BLOOD SPECIMENOrdering Facility: [facility] Address: [address] [place] [id number] Performed By: #### 5 7021-8 ####[facility] LABORATORYCLIA [id number] [place] [address] [facility] CNOVon 09-27-2024 [facility] -------- TIANNA LOUIS ([id number]) 1 F Date Time Provider Department 09/27/24 8:20 AM KELLEY CHEEMA During your visit today, we recorded the following information about you: Temperature Pulse Blood pressure Weight 98.6 degrees 89/minute 106/71 55.8 kg Kelley Cheema DO 10/03/2024 1:46 PM Signed [facility] Kelley Cheema DO ASSESSMENT/PLAN: 1. Palpitations - ICD9: 785.1, ICD10: R00.2 (primary diagnosis) - COMPREHENSIVE METABOLIC PANEL - THYROID STIMULATING HORMONE - HOLTER MONITOR 72 HOUR - COMPLETE BLOOD COUNT AND DIFFERENTIAL 2. Irritable bowel syndrome without diarrhea - ICD9: 564.1, ICD10: K58.9 - HELICOBACTER PYLORI ANTIGEN BY EIA, STOOL - SIMETHICONE 80 MG CHEWABLE TABLET - Discussed FODMAP diet with patient 3. At risk for obstructive sleep apnea - ICD9: V49.89, ICD10: Z91.89 - HOME SLEEP APNEA TEST (HSAT) Kelley Cheema DO HPI: Tianna Louis is a 19 year old female with PMHx: depression Anxiety Pilonidal cyst Unspecified anemia Here today for evaluation of her palpitations, weight loss, and possible JUANITA. Palpitations: Intermittently experiencing fluttering in her chest for ~ 11 years Most recently, symptoms awoke patient from sleep on 09/25 Exacerbated by high stress levels/anxiety Resolves spontaneously Occasionally has associated shortness of breath, but denies chest pain or tightness during these episodes Has been evaluated several times in the past for this issue, no problem ever identified on blood work or EKG Weight loss: 11 lbs over ~ 3 months. Associated with decreased appetite, epigastric pain while eating, and increased gas and bloating after meals. Intermittently nauseous, rarely vomiting Denies any recent illnesses or changes to medication/diet JUANITA Was reportedly told by anesthesiologist after her cesarian section that she is high risk for JUANITA STOP BANG Questionnaire 1. Snoring Do you snore loudly (louder than talking or loud enough to be heard through closed doors)? YES 2. Tired Do you often feel tired, fatigued, or sleepy during daytime? YES 3. Observed Has anyone observed you stop breathing during your sleep? YES 4. Blood Pressure Do you have or are you being treated for high blood pressure? NO 5. BMI BMI more than 35 kg/m2? NO 6. Age Age over 50 yr old? NO 7. Neck circumference Neck circumference greater than 40 cm? NO 8. Gender Gender male? NO PAST MEDICAL HISTORY Diagnosis Date Anemia complicating , third trimester 08/05/2023 Depression with anxiety Pilonidal abscess 06/10/2023 06/10/23- was treated during . She was told that she may need to follow with general surgery. Abhay Bone APRN.CNM Pilonidal cyst 2022 PAST SURGICAL HISTORY Procedure Laterality Date APPENDECTOMY patient was in 6th grade PAST SURGICAL HISTORY OF Left 04/07/2022 Benign Cyst Removal from [facility] Social History Tobacco Use Smoking status: Never Smokeless tobacco: Never Tobacco comments: vapes Vaping Use Vaping status: current everyday user Substance Use Topics Alcohol use: Not Currently Drug use: Yes Types: Marijuana FAMILY HISTORY Problem Relation Age of Onset Breast Cancer Maternal Grandmother possible Endometrial Cancer as well PAIN EVALUATION 09/27/2024 0820 Pain Level: 0 when she eats this goes up to an 8 Pain Location: Abdomen-Mid Lower Description: Bloating;Cramping;Sharp sharp pains when having BM Duration Amount of Time: 1 Duration Units: Years Frequency: Intermittent ALLERGIES Allergen Reactions Bactrim [Sulfametho* Vomiting Current Outpatient Medications Medication Sig simethicone, chewable (MYLICON) 80 mg chewable tablet Take 1 tablet by mouth every 6 hours as needed. escitalopram oxalate (LEXAPRO) 5 mg tablet Take 1 tablet by mouth once daily. No current facility-administered medications for this visit. I have confirmed and edited as necessary the chief complaint, medications, past medical, family and social histories. Review of Systems Constitutional: Positive for fatigue and unexpected weight change. Negative for fever. HENT: Negative for congestion, rhinorrhea and sore throat. Eyes: Negative for pain, redness and itching. Respiratory: Positive for shortness of breath. Negative for wheezing. Cardiovascular: Positive for palpitations. Negative for chest pain. Gastrointestinal: Positive for abdominal pain and nausea. Negative for constipation and diarrhea. Endocrine: Negative for heat intolerance. Genitourinary: Negative for dysuria, hematuria and urgency. Musculoskeletal: Negative for arthralgias and myalgias. Skin: Negative for rash and wound. Neurological: Negative for dizziness, tremors, weakness, light-headedness and headaches. Psychiatric/Behavioral: Negati (more content not included)... Normal [facility] Comprehensive metabolic 2000 panelon 09-27-2024 Albumin [Mass/Vol] 4.3 g/dL 3.9 - 4.9 g/dL [facility] ALP [Catalytic activity/Vol] 105 U/L 34 - 123 U/L [facility] ALT With P-5'-P [Catalytic activity/Vol] 16 U/L 7 - 38 U/L [facility] Anion gap [Moles/Vol] 10 mmol/L 8 - 15 mmol/L [facility] AST With P-5'-P [Catalytic activity/Vol] 19 U/L 13 - 35 U/L [facility] Bilirubin [Mass/Vol] 0.5 mg/dL 0.2 - 1 .3 mg/dL [facility] Calcium [Mass/Vol] 9.5 mg/dL 8.5 - 10. 2 mg/dL [facility] Chloride [Moles/Vol] 104 mmol/L 98 - 10 7 mmol/L [facility] CO2 [Moles/Vol] 26 mmol/L 22 - 30 mmol/L [facility] Creatinine [Mass/Vol] 0.69 mg/dL 0.58 - 0.96 mg/dL [facility] GFR/1.73 sq M.predicted among non-blacks MDRD (S/P/Bld) [Vol rate/Area] 127 mL/min/{1.73_m2} - PINF [facility] Comment on above: Estimated Glomerular Filtration Rate (eGFR) is calculated using the 2020 CKD-EPI creatinine equation. This equation utilizes serum creatinine, sex, and age as parameters. The creatinine assay has traceable calibration to isotope dilution-mass spectrometry. Refer to KDIGO guidelines for clinical interpretation. In patients with unstable renal function, e.g. those with acute kidney injury, the eGFR may not accurately reflect actual GFR. Glucose [Mass/Vol] 86 mg/dL 74 - 99 mg/dL [facility] Comment on above: The [place] Diabete s Association (ADA) provides guidance for cutoff values for fasting glucose and random glucose. The ADA defines fasting as no caloric intake for at least 8 hours. Fasting plasma glucose results between 100 to 125 mg/dL indicate increased risk for diabetes (prediabetes). Fasting plasma glucose results greater than or equal to 126 mg/dL meet the criteria for diagnosis of diabetes. In the absence of unequivocal hyperglycemia, results should be confirmed by repeat testing. In a patient with classic symptoms of hyperglycemia or hyperglycemic crisis, random plasma glucose results greater than or equal to 200 mg/dL meet the criteria for diagnosis of diabetes. Reference: Standards of Medical Care in Diabetes 2016, [place] Diabetes Association. Diabetes Care. 2016.39(Suppl 1). Potassium [Moles/Vol] 4.1 mmol/L 3.7 - 5.1 mmol/L [facility] Protein [Mass/Vol] 7.5 g/dL 6.3 - 8.0 g/dL [facility] Sodium [Moles/Vol] 140 mmol/L 136 - 144 mmol/L [facility] Urea nitrogen [Mass/Vol] 8 mg/dL 7 - 21 mg/dL [facility] Albumin [Mass/Vol] 4.3 g/dL Normal 3.9-4.9 [facility] Comment on above: Order Comment: Speci men Type: BLOOD SPECIMENOrdering Facility: [facility] Address: [address] [place] [address] Performed By: #### 2 4323-8, 6-3 ####[facility] LABORATORYCLIA [id number] [address] STATES OF [facility] ALP [Catalytic activity/Vol] 105 U/L Normal 34-123 [facility] Comment on above: Order Comment: Speci men Type: BLOOD SPECIMENOrdering Facility: [facility] Address: [address] [place] [address] Performed By: #### 2 4323-8, 6-3 ####[facility] LABORATORYCLIA [id number] [address] STATES OF [facility] ALT With P-5'-P [Catalytic activity/Vol] 16 U/L Normal 7-38 [facility] Comment on above: Order Comment: Speci men Type: BLOOD SPECIMENOrdering Facility: [facility] Address: [address] [place] [address] Performed By: #### 2 4323-8, 3015-3 ####[facility] LABORATORYCLIA [id number] [address] Anion gap [Moles/Vol] 10 mmol/L Normal 8-15 [facility] Comment on above: Order Comment: Speci men Type: BLOOD SPECIMENOrdering Facility: [facility] Address: [address] [place] [address] Performed By: #### 2 4323-8, 6-3 ####[facility] LABORATORYCLIA [id number] [address] STATES OF [facility] AST With P-5'-P [Catalytic activity/Vol] 19 U/L Normal 13-35 [facility] Comment on above: Order Comment: Speci men Type: BLOOD SPECIMENOrdering Facility: [facility] Address: [address] [place] [address] Performed By: #### 2 4323-8, 6-3 ####[facility] LABORATORYCLIA [id number] [address] [place] Bilirubin [Mass/Vol] 0.5 mg/dL Normal 0.2-1.3 [facility] Comment on above: Order Comment: Speci men Type: BLOOD SPECIMENOrdering Facility: [facility] Address: [address] [place] [address] Performed By: #### 2 4323-8, 3015-3 ####[facility]ATORYCLIA [id number] [place] [address] [place] Calcium [Mass/Vol] 9.5 mg/dL Normal 8.5-10.2 [facility] Comment on above: Order Comment: Speci men Type: BLOOD SPECIMENOrdering Facility: [facility] Address: [address] [place] [address] Performed By: #### 2 4323-8, 3 ####[facility]ORATORYCLIA [id number] [place] [address] [place] Chloride [Moles/Vol] 104 mmol/L Normal 98-107 [facility] Comment on above: Order Comment: Speci men Type: BLOOD SPECIMENOrdering Facility: [facility] Address: [address] [place] [address] Performed By: #### 2 4323-8, 3 ####[facility]ORATORYCLIA [id number] [place] [address] [place] CO2 [Moles/Vol] 26 mmol/L Normal 22-30 [facility] Comment on above: Order Comment: Speci men Type: BLOOD SPECIMENOrdering Facility: [facility] Address: [address] [place] [address] Performed By: #### 2 4323-8, 3015-3 ####[facility]ORATORYCLIA [id number] [place] [address] [place] Creatinine [Mass/Vol] 0.69 mg/dL Normal 0.58-0.96 [facility] Comment on above: Order Comment: Speci men Type: BLOOD SPECIMENOrdering Facility: [facility] Address: [address] [place] [address] Performed By: #### 2 4323-8, 3015-3 ####[facility] HOSPITALIA [id number] [place] [address] [place] Creatinine and Glomerular filtration rate.predicted panel (S/P/Bld) 127 mL/min/1.73m??? Normal >=60 [facility] Comment on above: Order Comment: Sara satish Type: BLOOD SPECIMENOrdering Facility: [facility] Address: [address] [place] [address] Result Comment: Caryl mated Glomerular Filtration Rate (eGFR) is calculated using the 2020 CKD-EPI creatinine equation. This equation utilizes serum creatinine, sex, and age as parameters. The creatinine assay has traceable calibration to isotope dilution-mass spectrometry. Refer to KDIGO guidelines for clinical interpretation. In patients with unstable renal function, e.g. those with acute kidney injury, the eGFR may not accurately reflect actual GFR. Performed By: #### 2 4323-8, 3015-3 ####[facility] HOSPITALIA [id number] [place] [id number] [place] Glucose [Mass/Vol] 86 mg/dL Normal 74-99 [facility] Comment on above: Order Comment: Sara covarrubias Type: BLOOD SPECIMENOrdering Facility: [facility] Address: [address] [place] [address] Result Comment: The [place] Diabetes Association (ADA) provides guidance for cutoff values for fasting glucose and random glucose. The ADA defines fasting as no caloric intake for at least 8 hours. Fasting plasma glucose results between 100 to 125 mg/dL indicate increased risk for diabetes (prediabetes). Fasting plasma glucose results greater than or equal to 126 mg/dL meet the criteria for diagnosis of diabetes. In the absence of unequivocal hyperglycemia, results should be confirmed by repeat testing. In a patient with classic symptoms of hyperglycemia or hyperglycemic crisis, random plasma glucose results greater than or equal to 200 mg/dL meet the criteria for diagnosis of diabetes. Reference: Standards of Medical Care in Diabetes 2016, [place] Diabetes Association. Diabetes Care. 2016.39(Suppl 1). Performed By: #### 2 4323-8, 6-3 ####[facility] HOSPITALIA [id number] [place] [address] [place] Potassium [Moles/Vol] 4.1 mmol/L Normal 3.7-5.1 [facility] Comment on above: Order Comment: Speci men Type: BLOOD SPECIMENOrdering Facility: [facility] Address: [address] [place] [address] Performed By: #### 2 4323-8, 3016-3 ####[facility]ORATORYCLIA [id number] [place] [address] [place] Protein [Mass/Vol] 7.5 g/dL Normal 6.3-8.0 [facility] Comment on above: Order Comment: Speci men Type: BLOOD SPECIMENOrdering Facility: [facility] Address: [address] [place] [address] Performed By: #### 2 4323-8, 6-3 ####[facility] LABORATORYCLIA [id number] [address] STATES [facility] Sodium [Moles/Vol] 140 mmol/L Normal 136-144 [facility] Comment on above: Order Comment: Speci men Type: BLOOD SPECIMENOrdering Facility: [facility] Address: [address] [place] [address] Performed By: #### 2 4323-8, 6-3 ####[facility]ORATORYCLIA [id number] [place] [address] [place] [facility] Urea nitrogen [Mass/Vol] 8 mg/dL Normal 7-21 [facility] Comment on above: Order Comment: Speci men Type: BLOOD SPECIMENOrdering Facility: [facility] Address: [address] [place] [address] Performed By: #### 2 4323-8, 6-3 ####[facility] LABORATORYCLIA [id number] [address] No Panel Informationon 09-27 Interpretation and review of laboratory results Normal [facility] THYROID STIMULATING HORMONEo n 09-27-2024 TSH Qn 1.590 m[IU]/L [facility] Comment on above: If the patient is pr egnant, TSH reference range varies by gestational period: First Trimester (weeks 9-12): 0.180-2.990 mIU/L Second Trimester: 0.110-3.980 mIU/L Third Trimester: 0.480-4.710 mIU/L Isai Merida et al. A Practical Approach for the Verifications and Determination of Site- and Trimester-Specific Reference Intervals for Thyroid Function tests in . Thyroid, 2019:29:3:412-420. Say Baker et al. 2017 Guidelines of the [place] Thyroid Association for the Diagnosis and Management of Thyroid Disease during and the . Thyroid, 2017:27:3:315-389. TSH SerPl-aCncon 09-27-2024 TSH Qn 1.590 m[IU]/L Normal 0.270-4.200 [facility] Comment on above: Order Comment: Speci men Type: BLOOD SPECIMENOrdering Facility: [facility] Address: [address] [place] [address] Result Comment: If t he patient is , TSH reference range varies by gestational period: First Trimester (weeks 9-12): 0.180-2.990 mIU/L Second Trimester: 0.110-3.980 mIU/L Third Trimester: 0.480-4.710 mIU/L Isai Merida et al. A Practical Approach for the Verifications and Determination of Site- and Trimester-Specific Reference Intervals for Thyroid Function tests in . Thyroid, 2019:29:3:412-420. Say Baker et al. 2017 Guidelines of the [place] Thyroid Association for the Diagnosis and Management of Thyroid Disease during and the . Thyroid, 2017:27:3:315-389. Performed By: #### 2 4323-8, 3016-3 ####[facility] LABORATORYCLIA [id number] [place] [address] [place] 12 Lead EKGon 09-26-2024 12 Lead EKG [facility] [address] [place] [address] 12 Lead EKG 09/26/24 0638 MR#: [id number] Acct: [id number] Name: TIANNA LOUIS Rep #: [id number] : 2005 19 From: Lee Mcarthur MD Attending Dr: Status: DEP ER Ordering Dr: Edgar Ross DO Date: 09/26/24 Location: ED Sex: F C Admitted: Test Reason : PALPITATIONS Blood Pressure : */* mmHG Vent. Rate : 96 BPM Atrial Rate : 96 BPM P-R Int : 170 ms QRS Dur : 76 ms QT Int : 342 ms P-R-T Axes : 61 32 42 degrees QTcB Int : 432 ms Sinus rhythm with marked sinus arrhythmia Otherwise normal ECG Confirmed by BENTLEY PRATT, LEE ([id number]), film editor KENZIE MAYEN ([id number]) on 09/27/2024 8:07:38 AM Referred By: Confirmed By: LEE MCARTHUR MD 09/27/24 0807 Date Lee Mcarthur MD CC: Dr. Waldo Good DO; Edgar Ross DO Signed Normal [facility] Basic Metabolic Profile (BMP )on 09-26-2024 BUN/CRE 15.9 RATIO Normal 10-20 [facility] Comment on above: Performed By: #### L 100.0100, L700.6800, L501.9520, L501.5200, L500.2500 ####[facility] [address] [place], [address] CA,Total 9.2 mg/dL Normal 8.5-10.1 [facility] Comment on above: Performed By: #### L 100.0100, L700.6800, L501.9520, L501.5200, L500.2500 ####[facility] [address] [place], [address] Chloride [Moles/Vol] 111 mmol/L High 98-107 [facility] Comment on above: Performed By: #### L 100.0100, L700.6800, L501.9520, L501.5200, L500.2500 ####[facility] [address] [place], [address] CO2 [Moles/Vol] 26.0 mmol/L Normal 21.0-32.0 [facility] Comment on above: Performed By: #### L 100.0100, L700.6800, L501.9520, L501.5200, L500.2500 ####[facility] [address] [place], [address] Creatinine [Mass/Vol] 0.69 mg/dL Normal 0.55-1.02 [facility] Comment on above: Result Comment: The validity of the calculated GFR GFRAA in patients over 70 years has not been determined. Clinical correlation is essential. Performed By: #### L 100.0100, L700.6800, L501.9520, L501.5200, L500.2500 ####[facility] [address] [place], [address] ECRCL 106.69 ml/min Normal [facility] Comment on above: Performed By: #### L 100.0100, L700.6800, L501.9520, L501.5200, L500.2500 ####[facility] [address] [place], [address] EST GFR - AA 137 mL/min Normal >60 [facility] Comment on above: Result Comment: Afri can [place]ian GFR Calc Performed By: #### L 100.0100, L700.6800, L501.9520, L501.5200, L500.2500 ####[facility] [address] [place], [address] GAP 5 Normal 5-15 [facility] Comment on above: Performed By: #### L 100.0100, L700.6800, L501.9520, L501.5200, L500.2500 ####[facility] [address] [place], [address] GFR/1.73 sq M.predicted among non-blacks MDRD (S/P/Bld) [Vol rate/Area] 113 mL/min/{1.73_m2} Normal >60 [facility] Comment on above: Result Comment: Non- GFR Calc Performed By: #### L 100.0100, L700.6800, L501.9520, L501.5200, L500.2500 ####[facility] [address] [place], [address] Glucose [Mass/Vol] 92 mg/dL Normal 74-106 [facility] Comment on above: Performed By: #### L 100.0100, L700.6800, L501.9520, L501.5200, L500.2500 ####[facility] [address] [place], [address] Potassium [Moles/Vol] 3.5 mmol/L Normal 3.5-5.1 [facility] Comment on above: Performed By: #### L 100.0100, L700.6800, L501.9520, L501.5200, L500.2500 ####[facility] [address] [place], [address] Sodium [Moles/Vol] 142 mmol/L Normal 136-145 [facility] Comment on above: Performed By: #### L 100.0100, L700.6800, L501.9520, L501.5200, L500.2500 ####[facility] [address] [place], [address] Urea nitrogen [Mass/Vol] 11 mg/dL Normal 7-18 [facility] Comment on above: Performed By: #### L 100.0100, L700.6800, L501.9520, L501.5200, L500.2500 ####[facility] [address] [place], [address] CBC W/Diff, Automatedon 12-0 Absolute Lymph 2.21 X10 3/uL Normal 0.83-4.51 [facility] Comment on above: Performed By: #### L 100.0100, L700.6800, L501.9520, L501.5200, L500.2500 ####[facility] [address] [place], [address] Absolute Neut 3.4 X10 3/uL Normal 2.0-7.7 [facility] Comment on above: Performed By: #### L 100.0100, L700.6800, L501.9520, L501.5200, L500.2500 ####[facility] [address] [place], [address] Basophils/100 WBC (Bld) 1.1 % High 0-1 [facility] Comment on above: Performed By: #### L 100.0100, L700.6800, L501.9520, L501.5200, L500.2500 ####[facility] [address] [place], [address] Eosinophils/100 WBC (Bld) 3.3 % Normal 0-5 [facility] Comment on above: Performed By: #### L 100.0100, L700.6800, L501.9520, L501.5200, L500.2500 ####[facility] [address] [place], [address] Erythrocyte distribution width (RBC) [Ratio] 13.2 % Normal 11.6-14.6 [facility] Comment on above: Performed By: #### L 100.0100, L700.6800, L501.9520, L501.5200, L500.2500 ####[facility] [address] [place], [address] Hematocrit (Bld) [Volume fraction] 39.4 % Normal 37-47 [facility] Comment on above: Performed By: #### L 100.0100, L700.6800, L501.9520, L501.5200, L500.2500 ####[facility] [address] [place], [address] Hemoglobin (Bld) [Mass/Vol] 13.2 g/dL Normal 12.0-15.0 [facility] Comment on above: Performed By: #### L 100.0100, L700.6800, L501.9520, L501.5200, L500.2500 ####[facility] [address] [place], [address] IG% 0.200 Normal 0.0-0.9 [facility] Comment on above: Result Comment: IG% - Immature Granulocytes (promyelocytes, myelocytes and metamyelocytes) > 1% indicates that a LEFT SHIFT is Present. Performed By: #### L 100.0100, L700.6800, L501.9520, L501.5200, L500.2500 ####[facility] [address] [place], [address] Lymphocytes/100 WBC (Bld) 34.3 % Normal 19-41 [facility] Comment on above: Performed By: #### L 100.0100, L700.6800, L501.9520, L501.5200, L500.2500 ####[facility] [address] [place], [address] MCH (RBC) [Entitic mass] 30.3 pg Normal 27.0-32.0 [facility] Comment on above: Performed By: #### L 100.0100, L700.6800, L501.9520, L501.5200, L500.2500 ####[facility] [address] [place], [address] MCHC (RBC) [Mass/Vol] 33.5 g/dL Normal 32-36 [facility] Comment on above: Performed By: #### L 100.0100, L700.6800, L501.9520, L501.5200, L500.2500 ####[facility] [address] [place], [address] MCV (RBC) [Entitic vol] 90.6 fL Normal 81-99 [facility] Comment on above: Performed By: #### L 100.0100, L700.6800, L501.9520, L501.5200, L500.2500 ####[facility] [address] [place], [address] Monocytes/100 WBC (Bld) 8.2 % Normal 0-10 [facility] Comment on above: Performed By: #### L 100.0100, L700.6800, L501.9520, L501.5200, L500.2500 ####[facility] [address] [place], [address] Neutrophils/100 WBC (Bld) 52.9 % Normal 47-70 [facility] Comment on above: Performed By: #### L 100.0100, L700.6800, L501.9520, L501.5200, L500.2500 ####[facility] [address] [place], [address] Nucleated RBC (Bld) [#/Vol] 0 10*3/uL Normal 0-5 [facility] Comment on above: Performed By: #### L 100.0100, L700.6800, L501.9520, L501.5200, L500.2500 ####[facility] [address] [place], [address] Platelet mean volume (Bld) [Entitic vol] 10.6 fL Normal 6.2-12.0 [facility] Comment on above: Performed By: #### L 100.0100, L700.6800, L501.9520, L501.5200, L500.2500 ####[facility] [address] [place], [address] Platelets (Bld) [#/Vol] 390 10*3/uL Normal 150-450 [facility] Comment on above: Performed By: #### L 100.0100, L700.6800, L501.9520, L501.5200, L500.2500 ####[facility] [address] [place], [address] RBC (Bld) [#/Vol] 4.35 10*6/uL Normal 4.2-5.4 [facility] Comment on above: Performed By: #### L 100.0100, L700.6800, L501.9520, L501.5200, L500.2500 ####[facility] [address] [place], [address] RDW SD 44.3 fl High 35.1-43.9 [facility] Comment on above: Performed By: #### L 100.0100, L700.6800, L501.9520, L501.5200, L500.2500 ####[facility] [address] [place], [address] WBC (Bld) [#/Vol] 6.4 10*3/uL Normal 4.4-11.0 [facility] Comment on above: Performed By: #### L 100.0100, L700.6800, L501.9520, L501.5200, L500.2500 ####[facility] [address] [place], [address] Emergency Department Summary on 09-26-2024 Emergency Department Summary [facility] Medical Records Department [address] [place] [address] Emergency Department Summary 09/26/24 MR#: [id number] Acct: [id number] Name: TIANNA LOUIS Rep #: [id number] : 2005 19 From: Edgar Ross DO PCP: Dr. Waldo Good DO Status:REG ER Location: ED HPI History of Present Illness Chief Complaint: Palpitations Informant: patient and family Narrative Narrative: Patient is a 19-year-old female with past medical history of anxiety and depression as well as PTSD. She states for quite some time she has been waking up and feeling like her heart is racing. She states that the palpitations/tachycardia occurs while she is lying down and not after waking from sleep and standing. She states that she has not been evaluated for this previously. She reports that there is no known history or family history of cardiac dysrhythmia. She denies any excessive stimulant or illicit drug use. States that she feels like her symptoms are becoming more frequent and more severe and with this comes in for evaluation [facility] Medical History Abscess Anorexia PTSD (post-traumatic stress disorder) Depression Headache Vaginal cyst Home Medications ???Medication ???Instructions ???Recorded ???Last Taken ???Type NK 09/26/24 Unknown History Allergy/AdvReac Type Severity Reaction Status Date / Time sulfamethoxazole (From AdvReac Mild Vomiting Verified 09/26/24 06:28 Bactrim) trimethoprim (From Bactrim) AdvReac Mild Vomiting Verified 09/26/24 06:28 Surgical History History of appendectomy History of appendectomy Social History household members: significant other Smoking Status: Heavy Smoker (>10/day) alcohol intake: former substance use type: former substance user Date of last use: Marijuana ROS ROS ED Constitutional Constitutional ED: Denies chills or fever(s) Eyes Eyes: Denies blurry vision or change in vision ENT ENT ED: Denies sore throat Cardiovascular Cardiovascular: Reports palpitations and racing heartbeat; Denies chest pain Respiratory/Chest Respiratory/Chest: Denies cough or dyspnea Gastrointestinal Gastrointestinal: Denies abdominal pain, diarrhea, nausea or vomiting Genitourinary Genitourinary ED: Denies dysuria or hematuria Musculoskeletal Musculoskeletal: Denies myalgias Integumentary Denies rash Neurologic Neurologic: Denies headache(s) Psychiatric Psychiatric: Reports anxiety Hematologic/Lymphatic Hematologic/Lymphatic: Denies easy bleeding or easy bruising EXAM Physical Exam Const Vital Signs: 09/26/24 06:27 09/26/24 06:27 Temperature 97.7 F L Temperature Source Oral Pulse Rate 111 H Respiratory Rate 16 Respiratory Effort Normal Non-Labored Blood Pressure 130/68 H Blood Pressure Mean 88 Pulse Ox 98 Oxygen Delivery Method Room Air Positive well nourished and well developed General Appearance ED: well developed; Negative for pallor HEENT HEENT Narrative: Normocephalic atraumatic Eyes PERRL and EOMs intact bilaterally General Eye ED: Negative for scleral icterus Neck supple Neck Narrative: No nuchal rigidity or meningeal signs Chest Wall palpation of chest normal Resp normal respiratory effort and clear to auscultation bilaterally Cardio regular rate and regular rhythm Rate: other Other Details: Heart is regular rate and rhythm without murmurs rubs or gallop Radial and carotid pulses are equal and symmetric GI normal to inspection, nondistended, normoactive bowel sounds, non-tender, non-distended and no masses Auscultation: normoactive bowel sounds Palpation: soft Extremity normal to inspection Extremity Narrative: No asymmetric edema no pitting edema negative Homans' sign bilaterally Neuro oriented x3, CN's II-XII intact bilaterally and no sensory deficits noted Sensorium / Orientation: alert Motor Exam: strength 5/5 throughout Psych Mood Affect: anxious Skin no rashes or lesions noted General Skin Exam: Negative for jaundice or pallor MDM MDM MDM Narrative Medical decision making narrative: Patient arrived to the ER slightly tachycardic but otherwise with stable vitals. She reported that she has been awakening with sensation of heart racing/palpitations for quite some time but has not been worked up for it. Demential diagnosis is for cardiac dysrhythmia such as atrial fibrillation atrial flutter or SVT. There is concern for acute blood loss anemia electrolyte abnormality or acute kidney injury or thyroid disorder as a potential cause. There is possibility of as a cause for her recurrent symptoms. As she states the symptoms occur whi (more content not included)... Normal [facility] Magnesiumon 09-26-2024 Magnesium [Mass/Vol] 2.0 mg/dL Normal 1.6-2.6 [facility] Comment on above: Performed By: #### L 100.0100, L700.6800, L501.9520, L501.5200, L500.2500 ####[facility] [address] [place], [address] ,Serum,hCG Quali.on 09-26-2024 HCG, SERUM QUAL Negative Normal [facility] Comment on above: Performed By: #### L 100.0100, L700.6800, L501.9520, L501.5200, L500.2500 ####[facility] [address], [address] Thyroid Stim Hormone (TSH)on 09-26-2024 TSH 2.790 uIU/mL Normal 0.358-3.740 [facility] Comment on above: Performed By: #### L 100.0100, L700.6800, L501.9520, L501.5200, L500.2500 ####[facility] [address] [facility] [place], [address] Chest PA and Lateralon 08-31 Chest PA and Lateral [facility] Imaging Services [address] [place] [address] Chest PA and Lateral MR#: [id number] Acct: [id number] Name: TIANNA LOUIS Rep #: [id number] : 2005 F 19 From: Wally Patel MD PCP: Dr. Waldo Good, DO Status: REG ER Study: Chest PA and Lateral Date of Exam: 08/31/24 Exam# [id number] Ordering Dr: Geovanny Cruz MD [id number] EXAM: XR CHEST, 2 VIEWS CLINICAL INDICATION: cough TECHNIQUE: Frontal and lateral views of the chest. COMPARISON: Two-view chest 07/06/2024 FINDINGS: LUNGS AND PLEURAL SPACES: Unremarkable. No consolidation or edema. No pneumothorax. No effusion. HEART: Unremarkable. Cardiac silhouette not enlarged. MEDIASTINUM: Central airways and mediastinal contour are unremarkable. BONES/JOINTS: Unremarkable. No acute fracture. SOFT TISSUES: Unremarkable. RAD/Chest PA and Lateral IMPRESSION: No radiographic evidence of acute cardiopulmonary disease. Electronically Signed: Wally Patel MD at 7:11 EST , CC: Dr. Waldo Good DO; Dr. Geovanny Cruz MD Pump House Operator: Signed Normal [facility] Emergency Department Summary on 08-31-2024 Emergency Department Summary [facility] Medical Records Department [address] [facility] [place] [address] Emergency Department Summary 08/31/24 MR#: [id number] Acct: [id number] Name: TIANNA LOUIS Rep #: [id number] : 2005 From: Geovanny Cruz MD PCP: Dr. Waldo Good DO Status:REG ER Location: ED HPI HPI - URI History of Present Illness Chief Complaint: Cold Sx Informant: patient Onset/Context/Timing Onset: Days Context: Gradual Onset Timing: Continuous Current Severity: Mild Maximum Severity: Mild Associated Symptoms Associated Symptoms: Positive for Nasal Congestion and Nonproductive cough Narrative Narrative: Healthy 19-year-old female past medical history of appendectomy and . States that she has had about a weeklong history of cough. Initially mild sore throat and laryngitis sore throat resolved. He is also having mild wheezing. Mostly the cough nonproductive at times she does have clear phlegm. Denies any hemoptysis. No vomiting. No diarrhea. No dysuria. Prior similar symptoms: Yes Recent Illness/Hospitalization: No ROS ROS ED ROS Narrative Cough. Constitutional Constitutional ED: Reports chills; Denies fever(s) Eyes Eyes: Denies blurry vision ENT ENT ED: Denies ear pain Cardiovascular Cardiovascular: Denies chest pain Respiratory/Chest Respiratory/Chest: Reports cough; Denies dyspnea Gastrointestinal Gastrointestinal: Denies abdominal pain, constipation, diarrhea, melena, nausea or vomiting Genitourinary Genitourinary ED: Denies dysuria or hematuria Musculoskeletal Musculoskeletal: Denies arthralgias or back pain Integumentary Denies abscess or Abrasions Neurologic Neurologic: Denies headache(s) Psychiatric Psychiatric: Denies anxiety or depression Endocrine Endocrinology: Denies cold intolerance Hematologic/Lymphatic Hematologic/Lymphatic: Denies easy bleeding, easy bruising or lymphadenopathy Allergic/Immunologic Allergic/Immunologic ED: Denies mouth swelling, tongue swelling or urticaria [facility] Medical History Abscess Anorexia PTSD (post-traumatic stress disorder) Depression Headache Vaginal cyst Home Medications ???Medication ???Instructions ???Recorded ???Last Taken ???Type azelastine 137 mcg (0.1 %) nasal 2 spray intranasal BID PRN nasal 08/31/24 Unknown History spray congestion prednisone 20 mg tablet 40 mg (2 x 20 mg) PO DAILY 7 days 08/31/24 Unknown Rx #14 tabs Allergy/AdvReac Type Severity Reaction Status Date / Time sulfamethoxazole (From AdvReac Mild Vomiting Verified 08/31/24 06:35 Bactrim) trimethoprim (From Bactrim) AdvReac Mild Vomiting Verified 08/31/24 06:35 Surgical History History of appendectomy History of appendectomy Social History household members: significant other Smoking Status: Heavy Smoker (>10/day) alcohol intake: former substance use type: former substance user Date of last use: Marijuana EXAM Physical Exam Narrative Exam Narrative: 19-year-old female no acute distress. Vital signs stable afebrile. Pulse ox 97% on room air no signs of hypoxia. H EENT exam unremarkable. Neck nontender no JVD. No lymphadenopathy. TMs are normal bilaterally. Somewhat obscured on the left. Posterior pharynx normal. No erythema or exudate. No trouble swallowing or breathing. Trachea midline. Lungs a few expiratory wheezes on the left. Equal symmetrical. No rales or rhonchi. Heart regular rate and rhythm rate about 85 no murmur. Chest wall ribs nontender. Abdomen soft nontender. Moving all 4 extremities. Calves are nontender without edema or cords. Back is nontender. Neurologically patient is awake and alert no focal motor deficits. Const Vital Signs: 08/31/24 06:34 11/13/24 06:34 08/31/24 06:38 Temperature 97.6 F L 97.6 F L Temperature Source Oral Oral Pulse Rate 85 85 Respiratory Rate 16 16 Respiratory Effort Normal Non-Labored Respiratory Depth Respiratory Pattern Normal Blood Pressure 126/78 H 126/78 H Blood Pressure Mean 94 94 Pulse Ox 97 97 Oxygen Delivery Method Room Air Room Air 08/31/24 06:39 Temperature Temperature Source Pulse Rate Respiratory Rate Respiratory Effort Normal Non-Labored Respiratory Depth Normal Respiratory Pattern Normal Blood Pressure Blood Pressure Mean Pulse Ox Oxygen Delivery Method Room Air Positive well nourished and well developed; Negative for obese, cachectic or contractures General Appearance ED: well developed and NAD; Negative for cachectic, contractures, cyanotic, diaphoretic or pallor Nutritional Appearance: Negative for cachectic or obese HEENT Reports moist mucou (more content not included)... Normal [facility] Chest PA and Lateralon 07-06 Chest PA and Lateral [facility] Imaging Services [address] [place], [place] [address] Chest PA and Lateral MR#: [id number] Acct: [id number] Name: TIANNA LOUIS Rep #: [id number] : 2005 F 19 From: Stephany Arteaga MD PCP: Dr. Waldo Good, Status: REG ER Study: Chest PA and Lateral Date of Exam: 07/06/24 Exam# [id number] Ordering Dr: Edgar Ross DO [id number] STUDY: X-RAY CHEST REASON FOR EXAM: Female, 19 years old patient with cough. TECHNIQUE: PA and lateral views of the chest. COMPARISON: None. FINDINGS: The lungs are clear and expanded. There is no demonstrated pleural abnormality. Normal size heart. Normal mediastinum and nicole. Normal visualized pulmonary arteries. Normal visualized aortic arch and descending thoracic aorta. Normal visualized thoracic spine. Normal visualized ribs, clavicles, and shoulders. There is no demonstrated abnormality of the visualized soft tissue structures of the upper abdomen. RAD/Chest PA and Lateral IMPRESSION: No radiographic evidence of acute cardiopulmonary disease. Electronically Signed: Stephany Arteaga MD at 7:01 EDT Reading Location ID and State: [facility] / [place] , Service support , CC: Dr. Waldo Good DO; Edgar Ross DO Pump House Operator: Signed Normal [facility] Emergency Department Summary on 07-06-2024 Emergency Department Summary [facility] Medical Records Department [address] [place] [address] Emergency Department Summary 07/06/24 MR#: [id number] Acct: [id number] Name: TIANNA LOUIS Rep #: [id number] : 2005 19 From: Edgar Ross DO PCP: Dr. Waldo Good DO Status:REG ER Location: ED HPI History of Present Illness Chief Complaint: Cough Informant: patient Narrative Narrative: Patient is a 19-year-old female with past medical history of depression and PTSD who also states that she vapes. 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 She reports she has had approximately 2 weeks of nasal congestion and cough associate with headache and fatigue. She denies any history of immunosuppression. She states she tried to schedule an appointment with her family doctor but because of the symptoms being potentially related to COVID she was advised to come to the hospital for evaluation and therefore she presents at this time. [facility] Medical History Abscess Anorexia PTSD (post-traumatic stress disorder) Depression Headache Vaginal cyst Home Medications ???Medication ???Instructions ???Recorded ???Last Taken ???Type azelastine 137 mcg (0.1 %) nasal 2 spray intranasal BID #30 mL 07/06/24 Unknown Rx spray azithromycin 250 mg tablet See Rx Instructions PO .COMPLEX #6 07/06/24 Unknown Rx (Zithromax Z-Rajesh) tabs benzonatate 200 mg capsule 200 mg PO TID PRN cough #30 caps 07/06/24 Unknown Rx prednisone 20 mg tablet 40 mg (2 x 20 mg) PO DAILY 5 days 07/06/24 Unknown Rx #10 tabs Allergy/AdvReac Type Severity Reaction Status Date / Time sulfamethoxazole (From AdvReac Mild Vomiting Verified 07/06/24 06:26 Bactrim) trimethoprim (From Bactrim) AdvReac Mild Vomiting Verified 07/06/24 06:26 Surgical History (Updated 04/28/24 @ 11:43 by Shannon Scott) History of appendectomy History of appendectomy Social History household members: significant other Smoking Status: Heavy Smoker (>10/day) alcohol intake: former substance use type: former substance user Date of last use: Marijuana ROS ROS ED Constitutional Constitutional ED: Denies chills or fever(s) Eyes Eyes: Denies blurry vision or change in vision ENT ENT ED: Reports rhinorrhea and sore throat; Denies ear pain Cardiovascular Cardiovascular: Denies chest pain Respiratory/Chest Respiratory/Chest: Reports cough; Denies dyspnea Gastrointestinal Gastrointestinal: Reports diarrhea and nausea; Denies abdominal pain or vomiting Genitourinary Genitourinary ED: Denies dysuria Musculoskeletal Musculoskeletal: Reports myalgias Integumentary Denies rash Neurologic Neurologic: Reports headache(s) Hematologic/Lymphatic Hematologic/Lymphatic: Denies easy bleeding or easy bruising Allergic/Immunologic Allergic/Immunologic ED: Denies mouth swelling or tongue swelling EXAM Physical Exam Const Vital Signs: 07/06/24 06:26 07/06/24 06:29 07/06/24 06:29 Temperature 97.7 F L 97.7 F L Temperature Source Oral Oral Pulse Rate 103 H 103 H Respiratory Rate 16 16 Respiratory Effort Normal Non-Labored Respiratory Depth Respiratory Pattern Normal Blood Pressure 125/66 H 125/66 H Blood Pressure Mean 85 85 Pulse Ox 96 96 Oxygen Delivery Method Room Air Room Air 07/06/24 06:29 Temperature Temperature Source Pulse Rate Respiratory Rate Respiratory Effort Normal Non-Labored Respiratory Depth Normal Respiratory Pattern Normal Blood Pressure Blood Pressure Mean Pulse Ox Oxygen Delivery Method Room Air Positive well nourished and well developed General Appearance ED: well developed; Negative for pallor HEENT Reports moist mucous membranes HEENT Narrative: Bilateral TMs are retracted but show no secondary changes to suggest infection Nasal mucosa is hyperemic and boggy with dried purulent discharge. There is cobblestoning the posterior pharynx consistent with sinus drainage without airway edema or compromise or secondary findings to suggest infection Eyes PERRL and EOMs intact bilaterally General Eye ED: Negative for scleral icterus Neck supple Neck Narrative: No nuchal rigidity or meningeal signs No crepitance Chest Wall palpation of chest normal Resp normal respiratory effort and clear to auscultation bilaterally Resp Narrative: No nasal flaring retractions tachypnea or accessory muscle use Breath sounds are overall clear to auscultation Cardio regular rate and regular rhythm GI non-tender, non-distended and no masses GI Narrative: Abdomen is soft nontender nondistended with hyperactive bowel sounds. No volu (more content not included)... Normal [facility] M100.678on 07-06-2024 M100.678 Pending SARS-CoV-2 (COVID 19) Negative INFLUENZA A Negative INFLUENZA B Negative RSV PCR Negative Normal [facility] Comment on above: Performed By: #### L 349.9000, M100.3000, M100.4001, M100.2000 #### [facility] [address] [place], [address] Bacteria Ur Culton 4 Bacteria identified Cx Nom (U) ORGANISM ID: 1 10,000 -<50,000 CFU/ml Normal urogenital argelia Normal [facility] Comment on above: Performed By: #### 6 30-4 ####[facility] [id number] [place] [address] [place] CNOVon 06-21-2024 CNOV Office Visit (OBGYWM ) -------- TIANNA LOUIS ([id number]) 1 F Date Time Provider Department 06/21/24 10:00 AM MELISSA BIRCH OBGYWLatoya During your visit today, we recorded the following information about you: Blood pressure Weight 100/60 60.8 kg Melissa Birch APRN.CNP 06/21/2024 12:03 PM Signed Test Bore Helper offered: Patient declines. HPI: Tianna Louis is a 19 year old female Chief Comlaint: swollen labia The patient presents with abscess formation on left labia and symptoms have been present for 1 days. Associated symptoms include pain and subcutaneous mass. History of Diabetes? No PAST MEDICAL HISTORY 08/05/2023: Anemia complicating , third trimester No date: Depression with anxiety 06/10/2023: Pilonidal abscess Comment: 06/10/23- was treated during . She was told that she may need to follow with general surgery. Abhay Bone APRN.CN 2022: Pilonidal cyst PAST SURGICAL HISTORY No date: APPENDECTOMY Comment: patient was in 6th grade 04/07/2022: PAST SURGICAL HISTORY OF; Left Comment: Benign Cyst Removal from Labia Current Outpatient Medications Medication Sig cephALEXin (KEFLEX) 500 mg capsule Take 1 capsule by mouth four times daily for 5 days. escitalopram oxalate (LEXAPRO) 5 mg tablet Take 1 tablet by mouth once daily. No current facility-administered medications for this visit. ALLERGIES Allergen Reactions Bactrim [Sulfametho* Vomiting Social History Tobacco Use Smoking status: Never Smokeless tobacco: Never Vaping Use Vaping status: current everyday user Substance Use Topics Alcohol use: Not Currently Drug use: Yes Types: Marijuana INFORMED CONSENT The risks, benefits and anticipated outcomes of the procedure, the risks and benefits of the alternatives to the procedure and the roles and tasks of the personnel to be involved were discussed with the patient and the patient consents to the procedure and agrees to proceed. I verify that I personally obtained Tianna Louis's consent. Melissa Birch APRN.CNP June 21, 2024 12:03 PM Dept of OB/GYNECOLOGY UNIVERSAL PROTOCOL / SAFETY CHECKLIST Procedure to be Performed: I AND D of left labia Sign In: A Moment of CARE was completed. Personnel directly involved with the procedure wore the appropriate PPE (Personal Protective Equipment). Patient/Surrogate Stated/Verified: PATIENT VERIFIED(optional for EMERGENT procedures): Patient name, Date of , Relevant allergies, and The intended procedure Time Out Communication: Intended patient and procedure match the source documents. Consent documented and matches the intended procedure. Sign Out: SIGN OUT (optional for EMERGENT procedures): No specimen collected. No instruments, equipment or retained foreign bodies applicable. Post-procedure follow-up management communicated and Plan of Care Visit completed when applicable. Melissa Birch APRN.BRITTANIE IMPRESSION: Right labia abscess PLAN: After informed consent was obtained, using Betadine for cleansing and pt decline anesthetic, with sterile technique, an incision was made into the abscess cavity which was then drained Culture was not obtained. Procedure was well tolerated. Dressing was applied and wound care instructions were provided. May remove packing in 24 hours and continue frequent warm tub soaks until abscess resolves. Medication(s) given today: Yes: Keflex QID x 5 days Return to clinic as needed for pain, increased swelling, or fever. Melissa Birch APRN.Mel Stanley MA 06/21/2024 9:58 AM Signed Patient instructions following Bartholin's gland incision and drainage It is normal to have some pain and discomfort following incision and drainage. You may take vygv-skn-djnptmb medication such as ibuprofen (Motrin) or acetaminophen (Tylenol), following package instructions for dosage. You can expect to see some bleeding initially and continued drainage of the cyst for the next 1-2 weeks. If a Word catheter was inflated and left in place, your doctor will have you schedule an appointment for removal. If the catheter falls out on its own, let your doctor know. Do not try to reinsert it. You may be given antibiotics if your doctor thinks the cyst is infected. If so, it is important to complete the entire course of antibiotics even if your symptoms resolve before you have finished all the pills. You should avoid vigorous exercise and not put anything in the vagina for 2 weeks. Do not douche or use creams/powders in the affected area unless instructed by your physician. You should call your doctor if you experience any of the following: Enlarging cyst Spreading redness in the skin Worsening pain Fever or chills Excessive bleeding Other concerning symptoms Allergies As of Date: 06/21/2024 Noted Allergy Reaction BACTRIM (SULFAMETHOXAZOLE-TRIMET H*06/10/2023 11 (more content not included)... Normal [facility] UA DIP, URINE (POC)on 2023 BILIRUBIN UA (POCT) Negative Negative [facility] CLARITY UA (POCT) Clear [facility] COLOR UA (POCT) Yellow [facility] GLUCOSE UA (POCT) Negative Negative mg/dL [facility] Hemoglobin Ql (U) Large Abnormal Negative [facility] Interpretation and review of laboratory results Abnormal [facility] KETONE UA (POCT) Negative Negative mg/dL [facility] LEUKOCYTES UA (POCT) Trace Abnormal Negative [facility] NITRITE UA (POCT) Negative Negative [facility] PH UA (POCT) 7.0 4.5 - 8.0 [facility] Protein Ql (U) Negative Negative mg/dL [facility] SPECIFIC GRAVITY UA (POCT) >=1.030 1.005 - 1.030 [facility] UROBILINOGEN UA (POCT) 1.0 Normal E.U./dL [facility] Location:[facility], [address] [facility], [place], [address] [facility] POINT OF CARE [facility] CBC W/Diff, Automatedon 07- Absolute Lymph 0.94 X10 3/uL Normal 0.83-4.51 [facility] Comment on above: Performed By: #### L 500.4050, L501.2450, L100.0100 #### [facility] [address] [place], [address] Absolute Neut 7.3 X10 3/uL Normal 2.0-7.7 [facility] Comment on above: Performed By: #### L 500.4050, L501.2450, L100.0100 #### [facility] [address] [place], [address] Basophils/100 WBC (Bld) 0.5 % Normal 0-1 [facility] Comment on above: Performed By: #### L 500.4050, L501.2450, L100.0100 #### [facility] [address] [place], [address] Eosinophils/100 WBC (Bld) 0.1 % Normal 0-5 [facility] Comment on above: Performed By: #### L 500.4050, L501.2450, L100.0100 #### [facility] [address] [place], [address] Erythrocyte distribution width (RBC) [Ratio] 13.5 % Normal 11.6-14.6 [facility] Comment on above: Performed By: #### L 500.4050, L501.2450, L100.0100 #### [facility] [address] [place], [address] Hematocrit (Bld) [Volume fraction] 40.6 % Normal 37-47 [facility] Comment on above: Performed By: #### L 500.4050, L501.2450, L100.0100 #### [facility] [address] [place], [address] Hemoglobin (Bld) [Mass/Vol] 13.1 g/dL Normal 12.0-15.0 [facility] Comment on above: Performed By: #### L 500.4050, L501.2450, L100.0100 #### [facility] [address] [place], [address] IG% 0.300 Normal 0.0-0.9 [facility] Comment on above: Result Comment: IG% - Immature Granulocytes (promyelocytes, myelocytes and metamyelocytes) > 1% indicates that a LEFT SHIFT is Present. Performed By: #### L 500.4050, L501.2450, L100.0100 #### [facility] [address] [place], [address] Lymphocytes/100 WBC (Bld) 10.6 % Low 19-41 [facility] Comment on above: Performed By: #### L 500.4050, L501.2450, L100.0100 #### [facility] [address] [place], [address] MCH (RBC) [Entitic mass] 27.7 pg Normal 27.0-32.0 [facility] Comment on above: Performed By: #### L 500.4050, L501.2450, L100.0100 #### [facility] [address] [place], [address] MCHC (RBC) [Mass/Vol] 32.3 g/dL Normal 32-36 [facility] Comment on above: Performed By: #### L 500.4050, L501.2450, L100.0100 #### [facility] [address] [place], [address] MCV (RBC) [Entitic vol] 85.8 fL Normal 81-99 [facility] Comment on above: Performed By: #### L 500.4050, L501.2450, L100.0100 #### [facility] [address] [place], [address] Monocytes/100 WBC (Bld) 6.4 % Normal 0-10 [facility] Comment on above: Performed By: #### L 500.4050, L501.2450, L100.0100 #### [facility] [address] [place], [address] Neutrophils/100 WBC (Bld) 82.1 % High 47-70 [facility] Comment on above: Performed By: #### L 500.4050, L501.2450, L100.0100 #### [facility] [address] [place], [address] Nucleated RBC (Bld) [#/Vol] 0 10*3/uL Normal 0-5 [facility] Comment on above: Performed By: #### L 500.4050, L501.2450, L100.0100 #### [facility] [address] [place], [address] Platelet mean volume (Bld) [Entitic vol] 10.1 fL Normal 6.2-12.0 [facility] Comment on above: Performed By: #### L 500.4050, L501.2450, L100.0100 #### [facility] [address] [place], [address] Platelets (Bld) [#/Vol] 361 10*3/uL Normal 150-450 [facility] Comment on above: Performed By: #### L 500.4050, L501.2450, L100.0100 #### [facility] [address] [place], [address] RBC (Bld) [#/Vol] 4.73 10*6/uL Normal 4.2-5.4 [facility] Comment on above: Performed By: #### L 500.4050, L501.2450, L100.0100 #### [facility] [address] [place], [address] RDW SD 42.8 fl Normal 35.1-43.9 [facility] Comment on above: Performed By: #### L 500.4050, L501.2450, L100.0100 #### [facility] [address] [place], [address] WBC (Bld) [#/Vol] 8.9 10*3/uL Normal 4.4-11.0 [facility] Comment on above: Performed By: #### L 500.4050, L501.2450, L100.0100 #### [facility] [address] [place], [address] Comprehensive Metabolic Prof [facility] 04-28-2024 Albumin [Mass/Vol] 3.7 g/dL Normal 3.2-5.0 [facility] Comment on above: Performed By: #### L 500.4050, L501.2450, L100.0100 #### [facility] [address] [place], [address] Albumin/Globulin [Mass ratio] 0.8 {ratio} Low 0.9-2.4 [facility] Comment on above: Performed By: #### L 500.4050, L501.2450, L100.0100 #### [facility] [address] [place], [address] ALK P 136 U/L High 45-117 [facility] Comment on above: Performed By: #### L 500.4050, L501.2450, L100.0100 #### [facility] [address] [place], [address] ALT [Catalytic activity/Vol] 28 U/L Normal 13-56 [facility] Comment on above: Performed By: #### L 500.4050, L501.2450, L100.0100 #### [facility] [address] [place], [address] AST [Catalytic activity/Vol] 12 U/L Low 15-37 [facility] Comment on above: Performed By: #### L 500.4050, L501.2450, L100.0100 #### [facility] [address] [place], [address] Bilirubin [Mass/Vol] 0.70 mg/dL Normal 0.20-1.00 [facility] Comment on above: Result Comment: For patients on eltrombopag therapy, use of Dimension [place] TBIL is not recommended. Performed By: #### L 500.4050, L501.2450, L100.0100 #### [facility] [address] [place], [address] BUN/CRE 13.8 RATIO Normal 10-20 [facility] Comment on above: Performed By: #### L 500.4050, L501.2450, L100.0100 #### [facility] [address] [place], [address] CA,Total 9.1 mg/dL Normal 8.5-10.1 [facility] Comment on above: Performed By: #### L 500.4050, L501.2450, L100.0100 #### [facility] [address] [place], [address] Chloride [Moles/Vol] 103 mmol/L Normal 98-107 [facility] Comment on above: Performed By: #### L 500.4050, L501.2450, L100.0100 #### [facility] [address] [place], [address] CO2 [Moles/Vol] 26.0 mmol/L Normal 21.0-32.0 [facility] Comment on above: Performed By: #### L 500.4050, L501.2450, L100.0100 #### [facility] [address] [place], [address] Creatinine [Mass/Vol] 0.65 mg/dL Normal 0.55-1.02 [facility] Comment on above: Result Comment: The validity of the calculated GFR GFRAA in patients over 70 years has not been determined. Clinical correlation is essential. Performed By: #### L 500.4050, L501.2450, L100.0100 #### [facility] [address] [place], [address] ECRCL 113.25 ml/min Normal [facility] Comment on above: Performed By: #### L 500.4050, L501.2450, L100.0100 #### [facility] [address] [place], [address] EST GFR - AA 147 mL/min Normal >60 [facility] Comment on above: Result Comment: Afri can Lithuanian GFR Calc Performed By: #### L 500.4050, L501.2450, L100.0100 #### [facility] [address] [place], [address] GAP 7 Normal 5-15 [facility] Comment on above: Performed By: #### L 500.4050, L501.2450, L100.0100 #### [facility] [address] [place], [address] GFR/1.73 sq M.predicted among non-blacks MDRD (S/P/Bld) [Vol rate/Area] 122 mL/min/{1.73_m2} Normal >60 [facility] Comment on above: Result Comment: Non- GFR Calc Performed By: #### L 500.4050, L501.2450, L100.0100 #### [facility] [address] [place], [address] Globulin (S) [Mass/Vol] 4.7 g/dL High 2.2-4.2 [facility] Comment on above: Performed By: #### L 500.4050, L501.2450, L100.0100 #### [facility] [address] [place], [address] Glucose [Mass/Vol] 86 mg/dL Normal 74-106 [facility] Comment on above: Performed By: #### L 500.4050, L501.2450, L100.0100 #### [facility] [address] [place], [address] Potassium [Moles/Vol] 3.3 mmol/L Low 3.5-5.1 [facility] Comment on above: Performed By: #### L 500.4050, L501.2450, L100.0100 #### [facility] [address] [place], [address] Sodium [Moles/Vol] 136 mmol/L Normal 136-145 [facility] Comment on above: Performed By: #### L 500.4050, L501.2450, L100.0100 #### [facility] [address] [place], [address] T PROT 8.4 g/dL High 6.4-8.2 [facility] Comment on above: Performed By: #### L 500.4050, L501.2450, L100.0100 #### [facility] [address] [place], [address] Urea nitrogen [Mass/Vol] 9 mg/dL Normal 7-18 [facility] Comment on above: Performed By: #### L 500.4050, L501.2450, L100.0100 #### [facility] [address] [place], [address] Lipaseon 04-28-2024 Lipase [Catalytic activity/Vol] 28 U/L Normal 13-75 [facility] Comment on above: Result Comment: Robbie alvarado note: LIPASE revised reference range effective 23. New Lipase methodology. Expected to produce lower values than the previous assay method. NEW Reference Range: 13 - 75 U/L Performed By: #### L 500.4050, L501.2450, L100.0100 #### [facility] [address] [place], [address] ,Urineon 04-28-2024 Beta HCG ( test) Ql (U) Negative Normal [facility] Comment on above: Order Comment: CLEAN CATCH Result Comment: Very dilute urine specimens, as indicated by a low specific gravity, may not contain direct marketing representative levels of hCG. If is still suspected, a first morning urine specimen should be collected 48 hours later and tested. Performed By: #### L 349.9000, M100.3000, M100.4001, M100.2000 #### [facility] [address] [place], [address] Urinalysis, Completeon 04-28 Mucus Ql (Urine sed) 1+ /hpf Normal [facility] Comment on above: Order Comment: CLEAN CATCH Performed By: #### L 349.9000, M100.3000, M100.4001, M100.1999 #### [facility] [address] [place], [address] BACTERIA 2+ /hpf Normal None Seen [facility] Comment on above: Order Comment: CLEAN CATCH Performed By: #### L 349.9000, M100.3000, M100.4001, M100.1999 #### [facility] [address] [place], [address] WBC 50-100 SEEN Normal 0-5 [facility] Comment on above: Order Comment: CLEAN CATCH Performed By: #### L 349.9000, M100.3000, M100.4001, M100.1999 #### [facility] [address] [place], [address] EPI,SQUAMOUS 25-50 SEEN Normal 5-10 [facility] Comment on above: Order Comment: CLEAN CATCH Performed By: #### L 349.9000, M100.3000, M100.4001, M100.1999 #### [facility] [address] [place], [address] RBC 0 SEEN Normal 0-5 [facility] Comment on above: Order Comment: CLEAN CATCH Performed By: #### L 349.9000, M100.3000, M100.4001, M100.1999 #### [facility] [address] [place], [address] ALP SerPl-cCncOrdered By: Abdirahman Clements on 04-03-2024 ALP [Catalytic activity/Vol] 137 U/L 45-117 [facility] ALT SerPl-cCncOrdered By: Abdirahman Clements on 04-03-2024 ALT [Catalytic activity/Vol] 28 U/L 13-61 [facility] Comment on above: Falsely depressed or falsely elevated results may occur onsamples drawn from patients taking Sulfasalazine andSulfapyridine. AST SerPl-cCncOrdered By: Abdirahman Clements on 04-03-2024 AST [Catalytic activity/Vol] 14 U/L 15-37 [facility] Comment on above: Falsely depressed or falsely elevated results may occur onsamples drawn from patients taking Sulfasalazine andSulfapyridine. Albumin SerPl-mCncOrdered By : Lionel Clements on 04-03-2024 Albumin [Mass/Vol] 4.1 g/dL 3.4-5.0 [facility] Albumin/Glob 24H Ur-mRtoOrde red By: Lionel Clements on 04-03-2024 Albumin/Globulin (24H U) [Mass ratio] 0.9 1.1-1.8 [facility] Amphetamines Ur QlOrdered By : Lionel Clements on 04-03-2024 Amphetamines Ql (U) Not detected None Detect Tr [facility] Comment on above: Cut-off 1000 ng/mLTh is is a screening test and the results should be used formedical purposes only. Anion Gap SerPl-sCncOrdered By: Lionel Clements on 04-03-2024 Anion gap [Moles/Vol] 7.6 mmol/L 0-16 [facility] Appearance UrOrdered By: Weston Clements on 04-03-2024 Appearance (U) SLIGHTLY-CLOUDY CLEAR [facility] BUN SerPl-mCncOrdered By: Abdirahman Clements on 04-03-2024 Urea nitrogen [Mass/Vol] 8 mg/dL 7-18 [facility] BUN/creat SerPl-mRtoOrdered By: Lionel Clements on 04-03-2024 Urea nitrogen/Creatinine [Mass ratio] 15.3 mg/mg 0-30 [facility] Bacteria UrnS Ql MicroOrdere d By: Lionel Clements on 04-03-2024 Bacteria LM Ql (Urine sed) TR NEG [facility] Barbital Ur QlOrdered By: Abdirahman Clements on 04-03-2024 Barbital Ql (U) Not detected None Detect [facility] Comment on above: Cut-off 200 ng/mLThi s is a screening test and the results should be used formedical purposes only. Basophils Auto (Bld) [#/Vol] Ordered By: Lionel Clements on 04-03-2024 Basophils (Bld) [#/Vol] 0.10 10*3/uL 0.0-0.2 [facility] Basophils/100 WBC Auto (Bld) Ordered By: Lionel Clements on 04-03-2024 Basophils/100 WBC (Bld) 0.4 % 0.0-1.5 [facility] Benzodiaz Ur QlOrdered By: E rnrick Clements on 04-03-2024 Benzodiazepines Ql (U) Not detected None Detect [facility] Comment on above: Cut-off 200 ng/mLThi s is a screening test and the results should be used formedical purposes only. Bile Ac Ur QlOrdered By: Weston Clements on 04-03-2024 Bile acid Ql (U) Negative NEG [facility] Bilirub SerPl-mCncOrdered By : Lionel Clements on 04-03-2024 Bilirubin [Mass/Vol] 0.50 mg/dL 0.0-1.0 [facility] Comment on above: Use of this assay is not recommended for patients undergoingtreatment with Eltrombopag due to the potential for falselyelevated results. Buprenorphine Ur QlOrdered B y: Lionel Clements on 04-03-2024 Buprenorphine Ql (U) Not detected None Detect T [facility] Comment on above: Cut-off 5 ng/mLThis is a screening test and the results should be used formedical purposes only. CBC AUTO DIFF (REFLEX MANUAL )on 04-03-2024 BASOPHIL # 0.10 x10 3/uL Normal 0.0-0.2 [facility] Comment on above: Performed By: #### C BCAD #### [facility] [address] [address] BASOPHIL % 0.4 % Normal 0.0-1.5 [facility] Comment on above: Performed By: #### C BCAD #### [facility] [address] [address] EOSINOPHIL % 0.2 % Normal 0.0-10.0 [facility] Comment on above: Performed By: #### C BCAD #### [facility] [address] [address] LYMPHOCYTE # 1.50 x10 3/uL Normal 1.0-4.8 [facility] Comment on above: Performed By: #### C BCAD #### [facility] [address] [address] LYMPHOCYTE % 12.1 % Low 13.0-47.0 [facility] Comment on above: Performed By: #### C BCAD #### [facility] [address] [address] MEAN KIMBERLY HGB CONC 33.8 g/dl Normal 31.0-37.0 [facility] Comment on above: Performed By: #### C BCAD #### [facility] [address] [address] MEAN CORPUSCULAR HGB 29.0 pg Normal 26.0-34.0 [facility] Comment on above: Performed By: #### C BCAD #### [facility] [address] [address] MEAN CORPUSCULAR VOLUME 85.7 fl Normal 78-102 [facility] Comment on above: Performed By: #### C BCAD #### [facility] [address] [address] MEAN PLATELET VOLUME 8.0 fl Normal 7.5-10.7 [facility] Comment on above: Performed By: #### C BCAD #### [facility] [address] [address] MONOCYTE # 0.40 x10 3/uL Normal 0.0-1.0 [facility] Comment on above: Performed By: #### C BCAD #### [facility] [address] [address] MONOCYTE % 3.1 % Normal 0.0-10.0 [facility] Comment on above: Performed By: #### C BCAD #### [facility] [address] [address] NEUT# 10.60 x10 3/uL High 1.8-7.7 [facility] Comment on above: Performed By: #### C BCAD #### [facility] [address] [address] NEUTROPHIL % 84.2 % High 40.0-80.0 [facility] Comment on above: Performed By: #### C BCAD #### [facility] [address] [address] PLATELET 406 x10 3/uL High 150-350 [facility] Comment on above: Performed By: #### C BCAD #### [facility] [address] [address] RED BLOOD CELL COUNT 4.57 x10 6/uL Normal 4.00-5.20 [facility] Comment on above: Performed By: #### C BCAD #### [facility] [address] [address] RED CELL WIDTH 14.5 % Normal 11.5-14.5 [facility] Comment on above: Performed By: #### C BCAD #### [facility] [address] [address] TOTAL EO 0.00 x10 3/uL Normal 0-1.0 [facility] Comment on above: Performed By: #### C BCAD #### [facility] [address] [address] WHITE BLOOD CELL COUNT 12.6 x10 3/uL High 4.5-11.0 [facility] Comment on above: Performed By: #### C BCAD #### [facility] [address] [address] CO2 SerPl-sCncOrdered By: Abdirahman Clements on 04-03-2024 CO2 [Moles/Vol] 27 mmol/L 21-32 [facility] Comment on above: TCO2 test measures t otal amount of CO2 in the blood, whichoccurs mostly in the form of bicarbonate (HCO3). COMPREHENSIVE METABOLICon ADJUSTED CALCIUM 9.0 MG/DL Normal [facility] Comment on above: Performed By: #### P ROF, ETOH #### [facility] [address] [address] Albumin [Mass/Vol] 4.1 g/dL Normal 3.4-5.0 [facility] Comment on above: Performed By: #### P ROF, ETOH #### [facility] [address] [address] Albumin/Globulin [Mass ratio] 0.9 {ratio} Low 1.1-1.8 [facility] Comment on above: Performed By: #### P ROF, ETOH #### [facility] [address] [address] ALP [Catalytic activity/Vol] 137 U/L High 45-117 [facility] Comment on above: Performed By: #### P ROF, ETOH #### [facility] [address] [address] ALT [Catalytic activity/Vol] 28 U/L Normal 13-61 [facility] Comment on above: Result Comment: Fals anshu depressed or falsely elevated results may occur on samples drawn from patients taking Sulfasalazine and Sulfapyridine. Performed By: #### P ROF, ETOH #### [facility] [address] [address] Anion gap [Moles/Vol] 7.6 mmol/L Normal 0-16 [facility] Comment on above: Performed By: #### P ROF, ETOH #### [facility] [address] [address] AST [Catalytic activity/Vol] 14 U/L Normal 15-37 [facility] Comment on above: Result Comment: Fals anshu depressed or falsely elevated results may occur on samples drawn from patients taking Sulfasalazine and Sulfapyridine. Performed By: #### P ROF, ETOH #### [facility] [address] [address] Bilirubin [Mass/Vol] 0.50 mg/dL Normal 0.0-1.0 [facility] Comment on above: Result Comment: Use of this assay is not recommended for patients undergoing treatment with Eltrombopag due to the potential for falsely elevated results. Performed By: #### P ROF, ETOH #### [facility] [address] [address] Calcium [Mass/Vol] 9.1 mg/dL Normal 8.5-10.1 [facility] Comment on above: Performed By: #### P ROF, ETOH #### [facility] [address] [address] Chloride [Moles/Vol] 109 mmol/L High 98-107 [facility] Comment on above: Performed By: #### P ROF, ETOH #### [facility] [address] [address] CO2 [Moles/Vol] 27 mmol/L Normal 21-32 [facility] Comment on above: Result Comment: TCO2 test measures total amount of CO2 in the blood, which occurs mostly in the form of bicarbonate (HCO3). Performed By: #### P ROF, ETOH #### [facility] [address] [address] Creatinine [Mass/Vol] 0.52 mg/dL Low 0.55-1.02 [facility] Comment on above: Performed By: #### P ROF, ETOH #### [facility] [address] [address] GFR/1.73 sq M.predicted among non-blacks MDRD (S/P/Bld) [Vol rate/Area] 135 mL/min/{1.73_m2} Normal >60 [facility] Comment on above: Result Comment: Aver age GFR for 20-29 years old = 116 ml/min/1.73 sq.m Chronic Kidney Disease - GFR generally <60 ml/min/1.73 sq.m Kidney Failure - GFR generally <15 ml/min/1.73 sq.m The estimated glomerular filtration rate (eGFR) was calculated using the 2020 CKD-EPI eGFR creatinine equation, which does not include race as a factor. This equation is validated in individuals 18 years of age and older. Accurate estimation of GFR requires stable day-to-day creatinine. Creatinine-based eGFR is less accurate in patients with extremes of muscle mass, restriction of dietary protein, ingestion of creatine, extra-renal metabolism of creatinine, or treatment with medications that affect renal tubular creatinine secretion. The eGFR is normalized to a body surface area of 1.73 square meters. GFR Categories in Chronic Kidney Disease (CKD) GFR GFR (mL/min/1.73 Category: square meters): Interpretation: G1 90 or greater Normal or high* G2 60-89 Mild decrease* G3a 45-59 Mild to moderate decrease G3b 30-44 Moderate to severe decrease G4 15-29 Severe decrease G5 14 or less Kidney failure *In the absence of evidence of kidney damage, neither GFR category G1 nor G2 fulfill the criteria for CKD (Kidney Int Suppl 2013;3:1-150) The new eGFRcr equation has similar overall performance characteristics to older equations. For most patients the previous eGFR result will be similar. However, for some, the values may differ by more than 10% particularly at higher values of eGFRcr and for younger patients. Please go to eGFR calculator/National Kidney Foundation to compare this result with a previously calculated eGFR based on older equations. Performed By: #### P ROF, ETOH #### [facility] [address] [address] Glucose [Mass/Vol] 87 mg/dL Normal 70-110 [facility] Comment on above: Result Comment: Fals anshu depressed or falsely elevated results may occur on samples drawn from patients taking Sulfasalazine and Sulfapyridine. ADA Guidelines for Diabetes: Fasting glucose <100 = Normal fasting glucose. Fasting glucose 100-125 = Impaired fasting glucose, also referred to as pre-diabetes. Fasting glucose >125 = Provisional diagnosis of diabetes. Diagnosis must be confirmed by repeat testing on a different day. Performed By: #### P ROF, ETOH #### [facility] [address] [address] Potassium [Moles/Vol] 3.6 mmol/L Normal 3.5-5.1 [facility] Comment on above: Performed By: #### P ROF, ETOH #### [facility] [address] [address] Protein [Mass/Vol] 8.7 g/dL High 6.4-8.2 [facility] Comment on above: Performed By: #### P ROF, ETOH #### [facility] [address] [address] Sodium [Moles/Vol] 140 mmol/L Normal 136-145 [facility] Comment on above: Performed By: #### P ROF, ETOH #### [facility] [address] [address] Urea nitrogen [Mass/Vol] 8 mg/dL Normal 7-18 [facility] Comment on above: Performed By: #### P ROF, ETOH #### [facility] [address] [address] Urea nitrogen/Creatinine [Mass ratio] 15.3 mg/mg Normal 0-30 [facility] Comment on above: Performed By: #### P ROF, ETOH #### [facility] [address] [address] Calcium Album cor SerPl-mCnc Ordered By: Lionel Clements on 04-03-2024 Calcium corrected for albumin [Mass/Vol] 9.0 [facility] Calcium SerPl-mCncOrdered By : Lionel Clements on 04-03-2024 Calcium [Mass/Vol] 9.1 mg/dL 8.5-10.1 [facility] Cannabinoids Ur QlOrdered By : Lioenl Clements on 04-03-2024 Cannabinoids Ql (U) Present None Detect [facility] Comment on above: RESULTS RECHECKEDCut -off 50 ng/mLThis is a screening test and the results should be used formedical purposes only. Chloride SerPl-sCncOrdered B y: Lionel Clements on 04-03-2024 Chloride [Moles/Vol] 109 mmol/L 98-107 [facility] Cocaine Ur QlOrdered By: Weston Clements on 04-03-2024 Cocaine Ql (U) Not detected None Detect [facility] Comment on above: Cut-off 300 ng/mLThi s is a screening test and the results should be used formedical purposes only. Color UrOrdered By: Lionel monteiro on 04-03-2024 Color (U) YELLOW YELLOW [facility] Creat SerPl-mCncOrdered By: Lionel Clements on 04-03-2024 Creatinine [Mass/Vol] 0.52 mg/dL 0.55-1.02 [facility] DRUG SCREEN URINEon 04-03-20 24 6-ACETYL MORPHPHINE SCREEN Not detected Normal None Detect [facility] Comment on above: Result Comment: Cut- off 10 ng/mL This is a screening test and the results should be used for medical purposes only. Performed By: #### D RSCREEN #### [place] [address] AMPHETAMINE SCREEN Not detected Normal None Detect [facility] Comment on above: Result Comment: Cut- off 1000 ng/mL This is a screening test and the results should be used for medical purposes only. Performed By: #### D RSCREEN #### [facility] [place] [address] BARBITURATE SCREEN Not detected Normal None Detect [facility] Comment on above: Result Comment: Cut- off 200 ng/mL This is a screening test and the results should be used for medical purposes only. Performed By: #### D RSCREEN #### [facility] [address] [address] BENZODIAZEPINE SCREEN Not detected Normal None Detect [facility] Comment on above: Result Comment: Cut- off 200 ng/mL This is a screening test and the results should be used for medical purposes only. Performed By: #### D RSCREEN #### [facility] [address] [address] BUPRENORPHINE (SUBOXONE) Not detected Normal None Detect [facility] Comment on above: Result Comment: Cut- off 5 ng/mL This is a screening test and the results should be used for medical purposes only. Performed By: #### D RSCREEN #### [facility] [address] [address] Cannabinoids Screen Ql (U) Present Abnormal None Detect [facility] Comment on above: Result Comment: RESU LTS RECHECKED Cut-off 50 ng/mL This is a screening test and the results should be used for medical purposes only. Performed By: #### D RSCREEN #### [facility] [address] [address] COCAINE METABOLITE SCREEN Not detected Normal None Detect [facility] Comment on above: Result Comment: Cut- off 300 ng/mL This is a screening test and the results should be used for medical purposes only. Performed By: #### D RSCREEN #### [facility] [address] [address] METHADONE SCREEN Not detected Normal None Detect [facility] Comment on above: Result Comment: Cut- off 300 ng/mL This is a screening test and the results should be used for medical purposes only. Performed By: #### D RSCREEN #### [facility] [address] [address] Opiates Ql (U) Not detected Normal None Detect [facility] Comment on above: Result Comment: Cut- off 300 ng/mL This is a screening test and the results should be used for medical purposes only. Performed By: #### D RSCREEN #### [facility] [address] [address] OXYCODONE SCREEN Not detected Normal None Detect [facility] Comment on above: Result Comment: Cut- off 100 ng/mL This is a screening test and the results should be used for medical purposes only. This test will detect other related compounds; Codeine, Dihydrocodeine, Hydrocodone, Hydromorphone, and Oxymorphone. Performed By: #### D RSCREEN #### [place] [address] Specific gravity (U) [Rel density] 1.026 Normal 1.002-1.030 [facility] Comment on above: Result Comment: This is a screening test and the results should be used for medical purposes only. Performed By: #### D RSCREEN #### [facility] [place] [id number] EDon 04-03-2024 ED [place] [address] [id number] TIANNA LOUIS Tammy NP EMERGENCY ROOM REPORT MR [id number] History of Present Illness Date of Service 04/03/24 Provider Kristopher Boinlla Ernest MD Chief Complaint General ED Complaint History of Present Illness Patient is a 19-year-old female who presents to the ED for concern of tachycardia, nausea, vomiting. Patient reports she was celebrating her 19st birthday this weekend, and drink alcohol last night. Patient denies any other drugs. Patient reports at 1 point she went into the bathroom and fell backward into the bathtub, striking the back of her head on the bathtub, and losing consciousness for approximately 1 minute. Patient reports that this morning she has been nauseated, vomited at least 3 times, and has had a rapid heart rate, and some left-sided chest pain. Patient reports her chest pain and rapid heart rate have mostly resolved at this point. Patient denies recent illness. Patient denies shortness of breath. Patient denies urinary symptoms. Patient denies fever, body aches. Patient denies headache. Patient denies lateralized weakness, visual changes. Historian: Patient, boyfriend Room: 17 Past Medical/Surgical History : RAPID HEARTBEAT -EKG WAS NORMAL : APPENDECTOMY : TONSILLITIS : CYST REMOVED Family History Diabetes: MAT GRT GRANDMOTHER Hypertension: TY HDZ GRANDMOTHER CHF: TY HDZ GRANDMOTHER Stroke: NONE Epilepsy: NONE Cancer: GRANDMOTHER/LEUKEMIA @21Y Renal Disease: NONE Heart Disease: NONE Social History Smoking history: Current every day smoker Alcohol: OCCASIONALLY Drugs: NONE (Lionel Clements MD) Home Medications . Active Scripts Cephalexin (Keflex) 500 MG PO Q12HR (Lionel Clements MD) Allergies Allergies Coded Allergies: No Known Food Allergy (05/14/23) Sulfa Antibiotics (Intermediate, VOMITING 05/14/23) (Lionel Clements MD) Review of Systems Other Except as noted in the HPI, all remaining systems were reviewed and found to be negative. (Lionel lCements MD) Examination Exam Vitals Vital Signs Date Time Temp Pulse Resp B/P B/P Pulse O2 O2 Flow FiO2 Mean Ox Delivery Rate 04/03 1428 94 18 109/71 04/03 1129 36.9 86 18 114/77 93 99 General appearance: Awake, alert. Does not appear to be sick or toxic. HEENT: Unremarkable head. Airway normal, mucous membranes pink and moist. Neck: Neck supple. Lungs: No crackles, rhonchi, or wheezes. No stridor. Good breath sounds bilaterally. No respiratory distress. Heart: Regular rate. Regular rhythm. No murmurs, gallops, or rubs. Abdomen: Normal bowel sounds. Abdomen is soft and nontender. No guarding, rebound, or rigidity. Nondistended. Extremities: No pitting edema. Peripheral pulses 2+ bilaterally. Musculoskeletal: Full ROM. No midline cervical tenderness to palpation appreciated. Skin: Intact, no rashes. Neurological: Alert and oriented x 3. No acute localizing signs. Psychiatric: Normal mood and affect. No psychosis. Mental status: Cooperative. Date of Last Tetanus: WITH IMMUNIZATIONS Diagnostic Studies Recent Impressions CT SCAN WEST - CERVICAL SPINE W/O CONTRAST 04/03 1300 Report Impression - Status: SIGNED Entered: 04/03/2024 1324 IMPRESSION: NO ACUTE INJURY SITE: O Impression By: KP/Missael Foote MD CT SCAN WEST - HEAD W/O CONTRAST 04/03 1300 Report Impression - Status: SIGNED Entered: 04/03/2024 1322 IMPRESSION: NO ACUTE INTRACRANIAL PROCESS. SITE: O Impression By: KP/Missael Foote MD Laboratory Tests 04/03 04/03 04/03 1243 1243 1230 Chemistry Sodium (136 - 145 MMOL/L) 140 Potassium (3.5 - 5.1 MMOL/L) 3.6 Chloride (98 - 107 MMOL/L) 109 CO2 (Enzymatic) (21 - 32 MMOL/L) 27 Anion Gap (0 - 16) 7.6 BUN (7 - 18 MG/DL) 8 Creatinine (0.55 - 1.02 MG/DL) 0.52 Est GFR (CKD-EPI 2020) (>60) 135 BUN/Creatinine Ratio (0 - 30) 15.3 Glucose (70 - 110 MG/DL) 87 Calcium (8.5 - 10.1 MG/DL) 9.1 Calcium Adj for Albumin (MG/DL) 9.0 Total Bilirubin (0.0 - 1.0 MG/DL) 0.50 AST (15 - 37 U/L) 14 ALT (13 - 61 U/L) 28 Alkaline Phosphatase (45 - 117 U/L) 137 Total Protein (6.4 - 8.2 GM/DL) 8.7 Albumin (3.4 - 5.0 GM/DL) 4.1 Albumin/Globulin Ratio (1.1 - 1.8) 0.9 Hematology WBC (4.5 - 11.0 x10 3/uL) 12.6 RBC (4.00 - 5.20 x10 6/uL) 4.57 Hgb (12.0 - 16.0 g/dl) 13.2 Hct (36 - 46 %) 39.1 MCV (78 - 102 fl) 85.7 MCH (26.0 - 34.0 pg) 29.0 MCHC (31.0 - 37.0 g/dl) 33.8 RDW (11.5 - 14.5 %) 14.5 Plt Count (150 - 350 x10 3/uL) 406 MPV (7.5 - 10.7 fl) 8.0 Eos # (Auto) (0 - 1.0 x10 3/uL) 0.00 Baso # (Auto) (0.0 - 0.2 x10 3/uL) 0.10 Neutrophils % (40.0 - 80.0 %) 84.2 Lymphocytes % (13.0 - 47.0 %) 12.1 Monocytes % (0.0 - 10.0 %) 3.1 Eosinophils % (0.0 - 10.0 %) 0.2 Basophils % (0.0 - 1 (more content not included)... Normal [facility] EKGIon 04-03-2024 EKGI [facility] [address] [address] EKG Report TIANNA LOUIS [id number] [facility] [id number] Lionel Clements MD SINUS RHYTHM WITH SINUS ARRHYTHMIA Electronically signed by ANNELISE Horton 2023 1:00PM Normal [facility] Eosinophils Manual cnt (Bld) [#/Vol]Ordered By: Lionel Clements on 04-03-2024 Eosinophils (Bld) [#/Vol] 0.00 10*3/uL 0-1.0 [facility] Ethanol SerPl-mCncOrdered By : Lionel Clements on 04-03-2024 Ethanol [Mass/Vol] mg/dL <3 [facility] Comment on above: The pharmacological response to blood alcohol levels mayvary from individual to individual. The fatal concentrationhas been reported to be greater than 400 mg/dL. Glucose SerPl-mCncOrdered By : Lionel Clements on 04-03-2024 Glucose [Mass/Vol] 87 mg/dL 70-110 [facility] Comment on above: Falsely depressed or falsely elevated results may occur onsamples drawn from patients taking Sulfasalazine andSulfapyridine. ADA Guidelines for Diabetes:Fasting glucose <100 = Normal fasting glucose.Fasting glucose 100-125 = Impaired fasting glucose, also referred to as pre-diabetes.Fasting glucose >125 = Provisional diagnosis of diabetes. Diagnosis must be confirmed by repeat testing on a different day. Glucose Ur Ql Strip.autoOrde red By: Lionel Clements on 04-03-2024 Glucose Auto test strip Ql (U) Negative NEG [facility] HCG Ur QlOrdered By: Lionel Clements on 04-03-2024 HCG ( test) Ql (U) Negative NEG [facility] HEADon 04-03-2024 HEAD Name: TIANNA LOUIS Phys: Lionel Clements MD : 2005 Age: 19 Sex: F Acct: [id number] Loc: Exam Date: 04/03/2024 Status: REG ER Radiology No: Unit No: [id number] PH: [phone] Diagnosis: N/V, CHEST PAIN EXAM: [id number] HEAD W/O CONTRAST Reason For Procedure: trauma STUDY: HEAD W/O CONTRAST CLINICAL INDICATION: Head trauma COMPARISON: None. TECHNIQUE: CT head without contrast. Dose optimization techniques included automated exposure control and iterative reconstruction software used. Number of CT and Cardiac nuclear medicine studies in the last 12 months: 0 FINDINGS: No hemorrhage. No acute infarct. No mass effect or midline shift. No linear depressed skull fractures. Paranasal sinuses are clear IMPRESSION: NO ACUTE INTRACRANIAL PROCESS. SITE: O REPORT SIGNED IN OTHER VENDOR SYSTEM 04/03/2024 Reported By: Missael Balderas MD CC: Amanda Pleitez NP Technologist: RT PIERRE/JARRET Transcribed Date/Time: 04/03/2024 (438) Pump House Operator: ROMERO Printed Date/Time: 04/03/2024 (8606) PAGE 1 Signed Report Normal [facility] Hgb Bld-mCncOrdered By: Aguila Kam on 04-03-2024 Hemoglobin (Bld) [Mass/Vol] 13.2 g/dL 12.0-16.0 [facility] Hgb Ur Ql Strip.autoOrdered By: Lionel Clements on 04-03-2024 Hemoglobin Auto test strip Ql (U) Negative NEG [facility] [employer] Ketones Ur Ql Strip.autoOrde red By: Lionel Clements on 04-03-2024 Ketones Auto test strip Ql (U) TR NEG [facility] Laboratory - Chemistry and C hemistry - challengeOrdered By: Lionel Clements on 04-03-2024 GFR/1.73 sq M.predicted MDRD (S/P/Bld) [Vol rate/Area] 135 mL/min/{1.73_m2} >60 [facility] Comment on above: Average GFR for 20-2 9 years old = 116 ml/min/1.73 sq.mChronic Kidney Disease - GFR generally <60 ml/min/1.73 sq.mKidney Failure - GFR generally <15 ml/min/1.73 sq.m The estimated glomerular filtration rate (eGFR) wascalculated using the 2020 CKD-EPI eGFR creatinine equation,which does not include race as a factor. This equation isvalidated in individuals 18 years of age and older. Accurateestimation of GFR requires stable day-to-day creatinine.Creatinine-based eGFR is less accurate in patients withextremes of muscle mass, restriction of dietary protein,ingestion of creatine, extra-renal metabolism of creatinine,or treatment with medications that affect renal tubularcreatinine secretion. The eGFR is normalized to a bodysurface area of 1.73 square meters. GFR Categories in Chronic Kidney Disease (CKD) GFR GFR (mL/min/1.73Category: square meters): Interpretation:G1 90 or greater Normal or high*G2 60-89 Mild decrease*G3a 45-59 Mild to moderate awohonkqH3j 30-44 Moderate to severe decreaseG4 15-29 Severe decreaseG5 14 or less Kidney failure*In the absence of evidence of kidney damage, neither GFRcategory G1 nor G2 fulfill the criteria for CKD (Kidney IntSuppl 2013;3:1-150) The new eGFRcr equation has similar overall performancecharacteristics to older equations. For most patients theprevious eGFR result will be similar. However, for some, thevalues may differ by more than 10% particularly at highervalues of eGFRcr and for younger patients. Please go to eGFRcalculator/National Kidney Foundation to compare this resultwith a previously calculated eGFR based on older equations. Laboratory - Hematology and Cell countsOrdered By: Lionel Clements on 04-03-2024 Eosinophils/100 WBC (Bld) 0.2 % 0.0-10.0 [facility] Erythrocyte distribution width (RBC) [Ratio] 14.5 % 11.5-14.5 [facility] Hematocrit Auto (Bld) [Pure volume fraction] 39.1 36-46 [facility] Lymphocytes/100 WBC (Bld) 12.1 % 13.0-47.0 [facility] Monocytes/100 WBC (Bld) 3.1 % 0.0-10.0 [facility] Neutrophils/100 WBC (Bld) 84.2 % 40.0-80.0 [facility] Platelet mean volume (Bld) [Entitic vol] 8.0 fL 7.5-10.7 [facility] Lymphocytes Auto (Bld) [#/Vo l]Ordered By: Lionel Clements on 04-03-2024 Lymphocytes (Bld) [#/Vol] 1.50 10*3/uL 1.0-4.8 [facility] MCH Auto (RBC) [Entitic mass ]Ordered By: Lionel Clements on 04-03-2024 MCH (RBC) [Entitic mass] 29.0 pg 26.0-34.0 [facility] MCHC Auto (RBC) [Mass/Vol]Or dered By: Lionel Clements on 04-03-2024 MCHC (RBC) [Mass/Vol] 33.8 g/dL 31.0-37.0 [facility] MCV Auto (RBC) [Entitic vol] Ordered By: Lionel Clements on 04-03-2024 MCV (RBC) [Entitic vol] 85.7 fL 78-102 [facility] Methadone Ur QlOrdered By: Olivia Clements on 04-03-2024 Methadone Ql (U) Not detected None Detect [facility] Comment on above: Cut-off 300 ng/mLThi s is a screening test and the results should be used formedical purposes only. Monocytes Auto (Bld) [#/Vol] Ordered By: Lionel Clements on 04-03-2024 Monocytes (Bld) [#/Vol] 0.40 10*3/uL 0.0-1.0 [facility] Mucous Threads Ur Ql AutoOrd ered By: Lionel Clements on 04-03-2024 Mucus Auto Ql (U) 1+ NEG [facility] Neutrophils Auto (Bld) [#/Vo l]Ordered By: Lionel Clements on 04-03-2024 Neutrophils (Bld) [#/Vol] 10.60 10*3/uL 1.8-7.7 [facility] Nitrite Ur Ql Strip.autoOrde red By: Lionel Clements on 04-03-2024 Nitrite Auto test strip Ql (U) Negative NEG [facility] No Panel InformationOrdered By: Lionel Clements on 04-03-2024 Urine 6-Acetylmorphine Screen Not detected None Detect [facility] Comment on above: Cut-off 10 ng/mLThis is a screening test and the results should be used formedical purposes only. Urine Ascorbic Acid Level Negative NEG [facility] Opiates Ur QlOrdered By: Weston rick Clements on 04-03-2024 Opiates Ql (U) Not detected None Detect [facility] Comment on above: Cut-off 300 ng/mLThi s is a screening test and the results should be used formedical purposes only. Oxycodone Ur QlOrdered By: Olivia martinezrick Tyree on 04-03-2024 oxyCODONE Ql (U) Not detected None Detect [facility] Comment on above: Cut-off 100 ng/mLThi s is a screening test and the results should be used formedical purposes only.This test will detect other related compounds; Codeine,Dihydrocodeine, Hydrocodone, Hydromorphone, and Oxymorphone. Platelet # BldOrdered By: Abdirahman Clements on 04-03-2024 Platelets (Bld) [#/Vol] 406 10*3/uL 150-350 [facility] Potassium SerPl-sCncOrdered By: Lionel Clements on 04-03-2024 Potassium [Moles/Vol] 3.6 mmol/L 3.5-5.1 [facility] Prot SerPl-mCncOrdered By: Olivia martinezrick Clements on 04-03-2024 Protein [Mass/Vol] 8.7 g/dL 6.4-8.2 [facility] Prot Ur Ql Strip.autoOrdered By: Lionel Clements on 04-03-2024 Protein Auto test strip Ql (U) 2+ NEG [facility] RBC #/area UrnS HPFOrdered B y: Lionel Clements on 04-03-2024 RBC LM.HPF (Urine sed) [#/Area] 0-2 NEG [facility] RBC Auto (Bld) [#/Vol]Ordere d By: Lionel Clements on 04-03-2024 RBC (Bld) [#/Vol] 4.57 10*6/uL 4.00-5.20 [facility] SERUM/PLASMA ALCOHOLon 04-03 SERUM/PLASMA ALCOHOL < 3 Normal <3 [facility] Comment on above: Result Comment: The pharmacological response to blood alcohol levels may vary from individual to individual. The fatal concentration has been reported to be greater than 400 mg/dL. Performed By: #### P ROF, ETOH #### [facility] [address] [address] SPINECon 04-03-2024 SPINEC Name: TIANNA LOUIS Phys: Lionel Clements MD : 2005 Age: 19 Sex: F Acct: [id number] Loc: Exam Date: 04/03/2024 Status: REG ER Radiology No: Unit No: [id number] PH: [phone] Diagnosis: N/V, CHEST PAIN EXAM: [id number] CERVICAL SPINE W/O CONTRAST Reason For Procedure: trauma STUDY: CERVICAL SPINE W/O CONTRAST CLINICAL INDICATION: Neck trauma TECHNIQUE: Transaxial images through the cervical spine Dose reduction technology used includes automated exposure control and iterative reconstruction software. COMPARISON: None Number of CT and Cardiac nuclear medicine studies in the last 12 months: 0 FINDINGS: Straightening normal lordotic curvature. Vertebral body heights are normal. No compression fracture. The prevertebral soft tissues are normal. Atlantoaxial association is intact. Posterior elements are intact without evidence of fracture. IMPRESSION: NO ACUTE INJURY SITE: O REPORT SIGNED IN OTHER VENDOR SYSTEM 04/03/2024 Reported By: Missael Balderas MD CC: Amanda Pleitez NP Technologist: ANDIE PRASAD RT/JARRET Transcribed Date/Time: 04/03/2024 (1121) Pump House Operator: ROMERO Printed Date/Time: 04/03/2024 (9652) PAGE 1 Signed Report Normal [facility] Sodium SerPl-sCncOrdered By: Lionel Clements on 04-03-2024 Sodium [Moles/Vol] 140 mmol/L 136-145 [facility] [employer] [facility] Sp Gr Ur Strip.autoOrdered B y: Lionel Clements on 04-03-2024 Specific gravity (U) [Rel density] 1.026 1.002-1.030 [facility] Comment on above: This is a screening test and the results should be used formedical purposes only. Squamous #/area UrnS HPFOrde red By: Lionel Clements on 04-03-2024 Epithelial cells.squamous LM.HPF (Urine sed) [#/Area] 6-10 NEG [facility] UR PREGNANCYon 04-03-2024 UR Negative Normal NEG [facility] Comment on above: Performed By: #### U RPREG #### [facility] [address] [address] URINALYSIS WITH REFLEX MICRO on 04-03-2024 Appearance (U) SLIGHTLY-CLOUDY Normal CLEAR [facility] Comment on above: Performed By: #### U RREFMIC ####[address] [address] Color (U) YELLOW Normal YELLOW [facility] Comment on above: Performed By: #### U RREFMIC ####[address] [address] Glucose Ql (U) Negative Normal NEG [facility] Comment on above: Performed By: #### U RREFMIC ####[address] [address] Nitrite Ql (U) Negative Normal NEG [facility] Comment on above: Performed By: #### U RREFMIC ####[address] [address] pH (U) 8.0 [pH] Normal 4.6-8.0 [facility] Comment on above: Performed By: #### U RREFMIC ####[address] [address] Protein Ql (U) 2+ Abnormal NEG [facility] Comment on above: Performed By: #### U RREFMIC ####[address] [address] Specific gravity (U) [Rel density] 1.026 Normal 1.002-1.030 [facility] Comment on above: Performed By: #### U RREFMIC ####[address] [address] URINE ASCORBIC ACID Negative Normal NEG [facility] Comment on above: Performed By: #### U RREFMIC ####[address] [address] URINE BACTERIA TR Normal NEG [facility] Comment on above: Performed By: #### U RREFMIC ####[address] [address] URINE BILE Negative Normal NEG [facility] Comment on above: Performed By: #### U RREFMIC ####[address] [address] URINE HEMOGLOBIN Negative Normal NEG [facility] Comment on above: Performed By: #### U RREFMIC ####[address] [address] URINE KETONE TR Normal NEG [facility] Comment on above: Performed By: #### U RREFMIC ####[address] [address] URINE LEUKOCYTES LARGE Abnormal NEG [facility] Comment on above: Performed By: #### U RREFMIC ####[address] [address] URINE MUCOUS 1+ /LPF Normal NEG [facility] Comment on above: Performed By: #### U RREFMIC ####[address] [address] URINE RED BLOOD CELLS 0-2 Normal NEG [facility] Comment on above: Performed By: #### U RREFMIC ####[address] [address] URINE SQUAMOUS EPITHELIAL 6-10 Abnormal NEG [facility] Comment on above: Performed By: #### U RREFMIC ####[address] [address] Urobilinogen (U) [Mass/Vol] Negative Normal <2.0 [facility] Comment on above: Performed By: #### U RREFMIC ####[address] [address] WBC (U) [#/Vol] /uL Abnormal NEG [facility] Comment on above: Performed By: #### U RREFMIC ####[address] [address] Urobilinogen Test strip Ql ( U)Ordered By: Lionel Clements on 04-03-2024 Urobilinogen Ql (U) Negative <2.0 [facility] WBC #/area UrnS HPFOrdered B y: Lionel Clements on 04-03-2024 WBC LM.HPF (Urine sed) [#/Area] /[HPF] NEG [facility] WBC Auto (Bld) [#/Vol]Ordere d By: Lionel Clements on 04-03-2024 WBC (Bld) [#/Vol] 12.6 10*3/uL 4.5-11.0 [facility] WBC Ur Ql AutoOrdered By: Abdirahman Clements on 04-03-2024 WBC Auto Ql (U) LARGE NEG [facility] pH Auto test strip (U)Ordere d By: Lionel Clements on 04-03-2024 pH (U) 8.0 [pH] 4.6-8.0 [facility] Absolute lymphocyte countOrd ered By: Claudia Stone on 08-17-2023 Lymphocytes Auto (Unsp spec) [#/Vol] 1.74 10*3/uL 0.83-4.51 [facility] Basophil percentageOrdered B y: Claudia Stone on 08-17-2023 Basophils/100 WBC (Bld) 0.5 % 0-1 [facility] Eosinophils/100 WBC (Bld) 0.7 % 0-5 [facility] Neutrophils (Bld) [#/Vol] 9.6 10*3/uL 2.0-7.7 [facility] Neutrophils/100 WBC (Bld) 78.1 % 47-70 [facility] WBC (Bld) [#/Vol] 12.4 10*3/uL 4.4-11.0 [facility] Blood erythrocytes count (nu mber/volume)Ordered By: Claudia Stone on 08-17-2023 RBC (Bld) [#/Vol] 2.89 10*6/uL 4.2-5.4 [facility] Blood hemoglobin measurement (mass/volume)Ordered By: Claudia Stone on 08-17-2023 Hemoglobin (Bld) [Mass/Vol] 8.0 g/dL 12.0-15.0 [facility] Blood lymphocytes/100 leukoc ytesOrdered By: Claudia Stone on 08-17-2023 Lymphocytes/100 WBC (Bld) 14.1 % 19-41 [facility] Blood monocytes/100 leukocyt esOrdered By: Claudia Stone on 08-17-2023 Monocytes/100 WBC (Bld) 5.9 % 0-10 [facility] Blood platelet mean volumeOr dered By: Claudia Stone on 08-17-2023 Platelet mean volume (Bld) [Entitic vol] 9.9 fL 6.2-12.0 [facility] Determination of erythrocyte mean corpuscular volume (MCV)Ordered By: Claudia Stone on 08-17-2023 MCV (RBC) [Entitic vol] 91.0 fL 81-99 [facility] Hematocrit Auto (Bld) [Volum e fraction]Ordered By: Claudia Stone on 08-17-2023 Hematocrit (Bld) [Volume fraction] 26.3 % 37-47 [facility] Laboratory - Hematology and Cell countsOrdered By: Claudia Stone on 08-17-2023 Erythrocyte distribution width (RBC) [Entitic vol] 49.5 fL 35.1-43.9 [facility] Erythrocyte distribution width (RBC) [Ratio] 14.9 % 11.6-14.6 [facility] Immature granulocytes/100 WBC (Bld) 0.700 % 0.0-0.9 [facility] Comment on above: IG% - Immature Granu locytes (promyelocytes, myelocytes and metamyelocytes) > 1% indicates that a LEFT SHIFT is Present. MCH (RBC) [Entitic mass] 27.7 pg 27.0-32.0 [facility] Nucleated RBC/100 WBC (Bld) [Ratio] 0 % 0-5 [facility] Auto (RBC) [Mass/Vol]Or dered By: Claudia Stone on 08-17-2023 MCHC (RBC) [Mass/Vol] 30.4 g/dL 32-36 [facility] Platelets bldOrdered By: Malia Stone on 08-17-2023 Platelets (Bld) [#/Vol] 249 10*3/uL 150-450 [facility] - Drug toxicology Ordered By: Claudia Stone on 08-15-2023 Benzodiazepines Ql (U) Negative < 200 ng/mL [facility] Cannabinoids Screen Ql (U) Negative < 50 ng/mL [facility] Cocaine Ql (U) Negative < 300 ng/mL [facility] Opiates Ql (U) Negative < 300 ng/mL [facility] Neisseria gonorrhoeae genita l PCROrdered By: Claudia Stone on 08-15-2023 N. gonorrhoeae DNA KATHLEEN+probe Ql (Genital specimen) [facility] No Panel InformationOrdered By: Claudia Stone on 08-15-2023 Hepatitis C Antibody Non-Reactive Nonreactive [facility] Comment on above: Non Reactive: < 0.8 Equivocal: >/= 0.8 to < 1.0 Reactive: >/= 1.0The CDC recommends that a reactive/equivocal HCV antibody result be followed up by the HCV Nucleic Acid Amplificationtest (812406) Chlamydia trachomatis (PCR) [facility] MDMA (Ecstasy) Screen Negative < 500 ng/mL [facility] Urine Barbiturates Screen Negative < 200 ng/mL [facility] Urine Drug Screen Comment [facility] Comment on above: CONFIRMATORY TESTING FOR ALL POSITIVE URINE DRUG SCREENRESULTS WILL ONLY BE SENT OUT UPON PHYSICIAN ORDER. VISTA Urine Drug Screen methods provide only preliminaryanalytical test results. A more specific alternate chemicalmethod must be used in order to obtain a confirmedanalytical result. Gas chromatography/mass spectrometery(GC/MS) is the preferred confirmatory method. Clinicalconsideration and professional judgement should be appliedto any drug of abuse test result, particularly whenpreliminary positive results are used. URINE TCA TESTING MUST BE ORDERED SEPARATELY. USE TESTMNEMONIC: [facility] Urine Methadone Screen Negative < 300 ng/mL [facility] Serum Treponema species anti body detectionOrdered By: Claudia Stone on 08-15-2023 Treponema sp Ab Ql (S) Non-Reactive [facility] Urine amphetamine measuremen t (moles/volume)Ordered By: Claudia Stone on 08-15-2023 Amphetamine (U) [Moles/Vol] Negative <1000 ng/mL [facility] Urine phencyclidine (PCP) de tectionOrdered By: Claudia Stone on 08-15-2023 Phencyclidine Ql (U) Negative < 25 ng/mL [facility] URINE OB DIP B/Oon Glucose Ql (U) Negative Neg mg/dL [facility] Protein.monoclonal (U) [Mass/Vol] Negative Neg mg/dL [facility] CBC panel Auto (Bld)on 08-05 Erythrocyte distribution width (RBC) [Ratio] 14.4 % 11.5 - 15.0 % [facility] [facility] Hematocrit (Bld) [Volume fraction] 31.2 % Low 36.0 - 46.0 % [facility] Hemoglobin (Bld) [Mass/Vol] 9.9 g/dL Low 11.5 - 15.5 g/dL [facility] MCH (RBC) [Entitic mass] 28.0 pg 26.0 - 34.0 pg [facility] MCHC (RBC) [Mass/Vol] 31.7 g/dL 30.5 - 36.0 g/dL [facility] MCV (RBC) [Entitic vol] 88.4 fL 80.0 - 100.0 fL [facility] Nucleated RBC (Bld) [#/Vol] <0.01 k/uL [facility] Platelet mean volume (Bld) [Entitic vol] 10.2 fL 9.0 - 12.7 fL [facility] Platelets (Bld) [#/Vol] 338 10*3/uL 150 - 400 k/uL [facility] RBC (Bld) [#/Vol] 3.53 10*6/uL Low 3.90 - 5.2 0 m/uL [facility] WBC (Bld) [#/Vol] 14.38 10*3/uL High 3.70 - 11 .00 k/uL [facility] Comprehensive metabolic 2000 panelon 08-05-2023 Albumin [Mass/Vol] 3.0 g/dL Low 3.9 - 4.9 g/dL [facility] ALP [Catalytic activity/Vol] 164 U/L High 34 - 123 U/L [facility] ALT [Catalytic activity/Vol] 11 U/L 7 - 38 U/L [facility] Anion gap [Moles/Vol] 11 mmol/L 9 - 18 mmol/L [facility] AST [Catalytic activity/Vol] 10 U/L Low 13 - 35 U/L [facility] Bilirubin [Mass/Vol] 0.2 mg/dL 0.2 - 1 .3 mg/dL [facility] Calcium [Mass/Vol] 8.9 mg/dL 8.5 - 10. 2 mg/dL [facility] Chloride [Moles/Vol] 104 mmol/L 97 - 10 5 mmol/L [facility] CO2 [Moles/Vol] 20 mmol/L Low 22 - 30 mmol/L [facility] Creatinine [Mass/Vol] 0.46 mg/dL Low 0.58 - 0.96 mg/dL [facility] Estimated Glomerular Filtration Rate 141 mL/min/1.73m >=60 mL/min/1.73m [facility] Glucose [Mass/Vol] 85 mg/dL 74 - 99 mg/dL [facility] Potassium [Moles/Vol] 3.8 mmol/L 3.7 - 5.1 mmol/L [facility] Protein [Mass/Vol] 6.0 g/dL Low 6.3 - 8.0 g/dL [facility] Sodium [Moles/Vol] 135 mmol/L Low 136 - 144 mmol/L [facility] Urea nitrogen [Mass/Vol] 6 mg/dL Low 7 - 21 mg/dL [facility] PROTEIN CREATININE RATIOon 1 Protein/Creatinine (U) [Mass ratio] 0.16 mg/mg High <0.15 mg/mg [facility] Protein/Creatinine (U) [Mass ratio]on 08-05-2023 Creatinine (U) [Mass/Vol] 48.6 mg/dL 20.0 - 300.0 mg/dL [facility] Protein (U) [Mass/Vol] 8 mg/dL 0 - 20 mg/dL [facility] URIC ACID BLOODon 08-05-2023 Urate [Mass/Vol] 3.1 mg/dL 2.5 - 6.6 mg/dL [facility] URINE OB DIP B/Oon Glucose Ql (U) Negative Neg mg/dL [facility] Protein.monoclonal (U) [Mass/Vol] Negative Neg mg/dL [facility] OBSTETRIC ULTRASOUND WHIon 1 [facility] Absolute lymphocyte countOrd ered By: Елена Valladares on 07-20-2023 Lymphocytes Auto (Unsp spec) [#/Vol] 1.65 10*3/uL 0.83-4.51 [facility] Basophil percentageOrdered B y: Елена Valladares on 07-20-2023 Basophils/100 WBC (Bld) 0.3 % 0-1 [facility] Bilirubin [Mass/Vol] 0.30 mg/dL 0.20-1.00 [facility] Comment on above: For patients on eltr ombopag therapy, use of [employer] [place] TBIL is not recommended. Chloride [Moles/Vol] 106 mmol/L 98-107 [facility] Eosinophils/100 WBC (Bld) 0.5 % 0-5 [facility] Glucose [Mass/Vol] 98 mg/dL 74-106 [facility] Neutrophils (Bld) [#/Vol] 13.5 10*3/uL 2.0-7.7 [facility] Neutrophils/100 WBC (Bld) 82.7 % 47-70 [facility] Potassium [Moles/Vol] 3.7 mmol/L 3.5-5.1 [facility] Protein [Mass/Vol] 6.8 g/dL 6.4-8.2 [facility] Sodium [Moles/Vol] 136 mmol/L 136-145 [facility] WBC (Bld) [#/Vol] 16.4 10*3/uL 4.4-11.0 [facility] Blood erythrocytes count (nu mber/volume)Ordered By: Елена Valladares on 07-20-2023 RBC (Bld) [#/Vol] 3.40 10*6/uL 4.2-5.4 [facility] Blood hemoglobin measurement (mass/volume)Ordered By: Елена Valladares on 07-20-2023 Hemoglobin (Bld) [Mass/Vol] 9.9 g/dL 12.0-15.0 [facility] Blood lymphocytes/100 leukoc ytesOrdered By: Елена Valladares on 07-20-2023 Lymphocytes/100 WBC (Bld) 10.1 % 19-41 [facility] Blood monocytes/100 leukocyt esOrdered By: Елена Valladares on 07-20-2023 Monocytes/100 WBC (Bld) 5.5 % 0-10 [facility] Blood platelet mean volumeOr dered By: Елена Valladares on 07-20-2023 Platelet mean volume (Bld) [Entitic vol] 10.8 fL 6.2-12.0 [facility] Determination of erythrocyte mean corpuscular volume (MCV)Ordered By: Елена Valladares on 07-20-2023 MCV (RBC) [Entitic vol] 90.9 fL 81-99 [facility] Hematocrit Auto (Bld) [Volum e fraction]Ordered By: Елена Valladares on 07-20-2023 Hematocrit (Bld) [Volume fraction] 30.9 % 37-47 [facility] Influenza virus A and B and SARS-CoV-2 (COVID-19) Ag panel - Upper respiratory specimOrdered By: Елена Valladares on 07-20-2023 SARS-CoV-2 (COVID-19) RNA KATHLEEN+probe Ql (Resp) [facility] Laboratory - Chemistry and C hemistry - challengeOrdered By: Елена Valladares on 07-20-2023 ALP [Catalytic activity/Vol] 189 U/L 45-117 [facility] ALT [Catalytic activity/Vol] 17 U/L 13-56 [facility] CO2 [Moles/Vol] 23.0 mmol/L 21.0-32.0 [facility] Globulin (S) [Mass/Vol] 4.5 g/dL 2.2-4.2 [facility] Urea nitrogen/Creatinine [Mass ratio] 10.2 mg/mg 10-20 [facility] - Hematology and Cell countsOrdered By: Елена Valladares on 07-20-2023 Erythrocyte distribution width (RBC) [Entitic vol] 44.7 fL 35.1-43.9 [facility] Erythrocyte distribution width (RBC) [Ratio] 13.6 % 11.6-14.6 [facility] Immature granulocytes/100 WBC (Bld) 0.900 % 0.0-0.9 [facility] Comment on above: IG% - Immature Granu locytes (promyelocytes, myelocytes and metamyelocytes) > 1% indicates that a LEFT SHIFT is Present. MCH (RBC) [Entitic mass] 29.1 pg 27.0-32.0 [facility] Nucleated RBC/100 WBC (Bld) [Ratio] 0 % 0-5 [facility] MCHC Auto (RBC) [Mass/Vol]Or dered By: Елена Valladares on 07-20-2023 MCHC (RBC) [Mass/Vol] 32.0 g/dL 32-36 [facility] No Panel InformationOrdered By: Елена Valladares on 07-20-2023 Estimated Creatinine Clearance Calc 190.34 ml/min [facility] Estimated GFR (MDRD) Amer 268 mL/min >60 [facility] Comment on above: GFR Calc Estimated GFR (MDRD) Non-Af Amer 221 mL/min >60 [facility] Comment on above: Non- GFR Calc Platelets bldOrdered By: Emre Valladares on 07-20-2023 Platelets (Bld) [#/Vol] 373 10*3/uL 150-450 [facility] Serum or plasma albumin elmer urement (mass/volume)Ordered By: Елена Valladares on 07-20-2023 Albumin [Mass/Vol] 2.3 g/dL 3.2-5.0 [facility] Serum or plasma albumin/glob ulin mass ratioOrdered By: Елена Valladares on 07-20-2023 Albumin/Globulin [Mass ratio] 0.5 {ratio} 0.9-2.4 [facility] Serum or plasma calcium elmer urement (mass/volume)Ordered By: Елена Valladares on 07-20-2023 Calcium [Mass/Vol] 8.3 mg/dL 8.5-10.1 [facility] Serum or plasma creatinine m easurement (mass/volume)Ordered By: Елена Valladares on 07-20-2023 Creatinine [Mass/Vol] 0.39 mg/dL 0.55-1.02 [facility] Comment on above: The validity of the calculated GFR & GFRAA in patients over 70 years has not been determined. Clinical correlation is essential. Serum or plasma urea nitroge n measurement (mass/volume)Ordered By: Елена Valladares on 07-20-2023 Urea nitrogen [Mass/Vol] 4 mg/dL 7-18 [facility] Thin prep Papanicolaou smear with manual screeningOrdered By: Елена Valladares on 07-20-2023 Thin prep Papanicolaou smear with manual screening 13 U/L 15-37 [facility] Thin prep Papanicolaou smear with manual screening 7 5-15 [facility] URINE OB DIP B/Oon 3 Glucose Ql (U) Negative Neg mg/dL [facility] Protein.monoclonal (U) [Mass/Vol] Negative Neg mg/dL [facility] Bilirubin Test strip Ql (U)O rdered By: Bessy Jacinto on 07-03-2023 Bilirubin Ql (U) Negative Negative [facility] Culture, urineOrdered By: Maryam Jacinto on 07-03-2023 Bacteria identified Cx Nom (U) Streptococcus agalactiae (B) [facility] Bacteria identified Cx Nom (U) Positive [facility] Ketones Test strip Ql (U)Ord ered By: Bessy Jacinto on 07-03-2023 Ketones Ql (U) Negative Negative [facility] Nitrite Test strip Ql (U)Ord ered By: Bessy Jacinto on 07-03-2023 Nitrite Ql (U) Negative Negative [facility] Protein Test strip Ql (U)Ord ered By: Bessy Jacinto on 07-03-2023 Protein Ql (U) 15 mg/dl Negative [facility] Urine blood detectionOrdered By: Bessy Jacinto on 07-03-2023 RBC Ql (U) Negative Negative [facility] Urine clarityOrdered By: Rupinder Jacinto on 07-03-2023 Clarity (U) Cloudy Clear [facility] Urine color determinationOrd ered By: Bessy Jacinto on 07-03-2023 Color (U) Yellow Yellow [facility] Urine glucose detectionOrder ed By: Bessy Jacinto on 07-03-2023 Glucose Ql (U) Normal mg/dl Normal [facility] Urine leukocyte esterase det ection by dipstickOrdered By: Bessy Jacinto on 07-03-2023 Leukocyte esterase Test strip Ql (U) 500 /ul Negative [facility] Urine pHOrdered By: Bessy Jacinto on 07-03-2023 pH (U) 7.0 [pH] 5.0 - 8.0 [facility] Urine specific gravity measu rementOrdered By: Bessy Jacinto on 07-03-2023 Specific gravity (U) [Rel density] 1.010 1.002-1.030 [facility] Urobilinogen Auto test strip Ql (U)Ordered By: Bessy Jacinto on 07-03-2023 Urobilinogen Ql (U) 1 mg/dl Normal [facility] CNPNon 06-15-2023 CNPN Telephone ([facility]) -------- TIANNA LOUIS ([id number]) 1 F Date Time Provider Department 06/15/23 TRACIE WILKERSON [facility] During your visit today, we recorded the following information about you: Tracie Wilkerson RN 06/15/2023 10:53 AM Signed VM left with my contact info for Tianna to return my call to schedule an appt with [facility] Allergies As of Date: 06/15/2023 Noted Allergy Reaction BACTRIM (SULFAMETHOXAZOLE-TRIMET H*06/10/2023 11 - Vomiting Date Reviewed: 06/10/2023 Reviewed by: Linh Saavedra Ma - Fully Assessed Reason for Visit: Appointment [186] Problem List As Of Date 06/15/2023 Noted Resolved with care elsewhere, antepar*06/10/2023 29 weeks gestation of [Z3A.29] 06/10/2023 Episode of recurrent major depressive disorder *06/10/2023 Anxiety [F41.9] 06/10/2023 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] 06/10/2023 Marijuana use during [O99.320, F12.90]06/10/2023 Vapes nicotine containing substance [Z72.0] 06/10/2023 Suspected anomaly, antepartum [O35.9XX0] 06/10/2023 Pilonidal abscess [L05.01] 06/10/2023 Encounter Status:Closed by TRACIE WILKERSON on 06/15/23 Normal [facility] URINE OB DIP B/Oon Glucose Ql (U) Negative Neg mg/dL [facility] Protein.monoclonal (U) [Mass/Vol] trace Neg mg/dL [facility] US DOPPLER MIDDLE CERE BRAL ARTERYon 05-27-2023 US DOPPLER MIDDLE CEREBRAL ARTERY Interpreted by: Missael Duong MD Signed by: Missael Duong MD 05/27/23 Final result Normal [facility] US DOPPLER UMBILICAL A RTERYon 05-27-2023 US DOPPLER UMBILICAL ARTERY Interpreted by: Missael Duong MD Signed by: Missael Duong MD 05/27/23 Final result Normal [facility] US BIOPHYSICAL PROFILE WO NON STRESS TESTINGon 05-27-2023 US BIOPHYSICAL PROFILE WO NON STRESS TESTING Interpreted by: Missael Duong MD Signed by: Missael Duong MD 05/27/23 Final result Normal [facility] US OB 14 PLUS WEEKS SINGLE O R FIRST GESTATIONon 05-27-2023 US OB 14 PLUS WEEKS SINGLE OR FIRST GESTATION Interpreted by: Missael Duong MD Signed by: Missael Duong MD 05/27/23 Final result Normal [facility] ERMISCon 05-18-2023 ERMISC Name: TIANNA LOUIS Phys: Suzanne Bauman MD : 2005 Age: 18 Sex: F Acct: [id number] Loc: THU Exam Date: 05/14/2023 Status: DEP ER Radiology No: Unit No: [id number] PH: [phone] Diagnosis: CYST GETTING WORSE 6 MONTHS PREG WAS SEEN AT EXPRE EXAM: [id number] [facility] Reason For Procedure: cyst PLEASE SEE FINDINGS OF ULTRASOUND STUDY REPORTED BY THE ER RESIDENT IN PCI ------ Reported By: Rory Pappas M.D. CC: Amanda Pleitez NP Technologist: MARILEE BAUMAN-RESIDENT Transcribed Date/Time: 05/18/2023 (1210) Pump House Operator: FRANCO Printed Date/Time: 05/18/2023 (121) PAGE 1 Signed Report Normal [facility]Don 05-14-2023 ED [facility] 05/14/23 [place], [place] [address] [id number] TIANNA LOUIS Tammy NP EMERGENCY ROOM REPORT MR [id number] 03 History of Present Illness Date of Service 05/14/23 Provider Rory Pappas DO Chief Complaint General ED Complaint History of Present Illness 18-year-old female 24 weeks presents today for concerns of a pilonidal cyst. Patient was recently seen at our [facility] for concerns of a pilonidal cyst that she previously had a history of this. She reports that she was given Keflex at that time and was advised to return to the ER if there was worsening of her symptoms. Patient states that she has taken 4 doses of the Keflex and has not noticed any improvement. She reports having a fever yesterday, though she did not take it her temperature. Associated nausea, no emesis. Patient reports that previously when she was seen at express care that she did not have a bump in the area but now there is a noticeable bump to the area. She reports additionally radiation of the pain down her buttocks. Denies any changes to urination but reports that she is has difficulty with bowel movement secondary to pain. Past Medical/Surgical History : RAPID HEARTBEAT -EKG WAS NORMAL : APPENDECTOMY : TONSILLITIS : CYST REMOVED Family History Diabetes: TY HDZ GRANDMOTHER Hypertension: TY HDZ GRANDMOTHER CHF: TY HDZ GRANDMOTHER Stroke: NONE Epilepsy: NONE Cancer: GRANDMOTHER/LEUKEMIA @21Y Renal Disease: NONE Heart Disease: NONE Social History Smoking history: Never smoker Alcohol: DENIES Drugs: DENIES (Suzanne Bauman MD) Home Medications . Active Scripts Cephalexin (Keflex) 500 MG PO Q12HR (Suzanne Bauman MD) Allergies Allergies Coded Allergies: No Known Food Allergy (05/14/23) Sulfa Antibiotics (Intermediate, VOMITING 05/14/23) (Suzanne Bauamn MD) Review of Systems Constitutional Yes Fever, No Chills, No Sweats, No Weakness Eyes No Pain, No Vision Change ENT Yes Normal Respiratory Yes Normal Cardiovascular No Chest Pain, No Palpitations Gastrointestinal Yes Nausea, No Vomiting, No Abdominal Pain, No Diarrhea, No Constipation Genitourinary No Dysuria, No Frequency, No Incontinence Musculoskeletal No Neck Pain, No Shoulder Pain, No Arm Pain, No Back Pain, No Hand Pain, No Leg Pain, No Foot Pain, Yes Other (buttock pain) Skin Yes Other (cyst) Neurological No Weakness, No Numbness, No Incoordination, No Change in Speech, No Confusion (Suzanne Bauman MD) Examination Exam Vitals Vital Signs Date Time Temp Pulse Resp B/P B/P Pulse O2 O2 Flow FiO2 Mean Ox Delivery Rate 05/14 0651 108 05/14 0234 18 97 05/14 0012 36.9 119 19 109/71 87 96 05/14 0006 36.9 119 19 109/71 87 96 General Appearance: Alert and oriented, no acute distress. HEENT: No scleral icterus, no thyromegaly, airway normal, mucus membranes pink and moist. Lungs: Clear to auscultation. No crackles, rhonchi, or wheezes. Heart: Regular rate. No murmur, rub, or gallop. Abdomen: abdomen. No guarding or rigidity. : small elevated mass to intergluteal cleft with ttp of Extremities: No pitting edema, peripheral pulses good bilaterally. Neurological: Alert and oriented x3. Mental Status: Cooperative. Musculoskeletal: Full ROM. Skin: No skin disruptions, no rashes. Last Menstrual Period: 11/17/22 Date of Last Tetanus: WITH IMMUNIZATIONS (Suzanne Bauman MD) ED Procedure Incision and Drainage: The area was prepared and draped in the usual, sterile manner with Betadine. The site was anesthetized with 1% lidocaine . A linear incision, with a 11 blade, along the local skin lines was made and 5-7 cc of purulent material was expressed. The abscess was explored thoroughly and sequestered pockets were opened. Bleeding was minimal. No packing was placed The patient tolerated the procedure well without complications. Standard post-procedure care is explained and return precautions are given. (Suzanne Bauman MD) Assessment / Plan, ED Clinical Impression: pilonidal cyst Diagnosis: pilonidal cyst Orders: All Orders Procedure Date/time Status [facility] [place] 05[place]14 1211 Complete SEEN BY PHYSICIAN / PROVIDER 05/14 0244 Active Medical Decision Makin-year-old female presenting for concerns of pilonidal cyst. Vitals reviewed and patient is stable. On initial examination patient she is in no acute distress but laying on her left side she reports that laying on her back discomfort. Significant other is at bedside. Physical examination was notable for a circular mass noted to the intergluteal cleft. She did have some tenderness about 1 cm in each direction surrounding the mass. At this time will give patient pain medication, Tyleno (more content not included)... Normal [facility] 05-11-2023 EXP [place], [place] [address] [id number] TIANNA LOUIS Tammy NP [facility] REPORT MR [id number] LOC: EX History of Present Illness Date of Service 05/11/23 Provider Maria Esther Collado APRN.RELIEF DRILLER Chief Complaint Pain, Body Part History of Present Illness 18-year-old female with a history of a rapid heartbeat with a normal EKG, pen ectomy, tonsillectomy, cyst removal and currently 20 weeks , presents amatory to [facility] stating that she believes her pilonidal cyst is getting infected again. She states that she was seen once for this previously, given antibiotics and the pain went away although the hole remained it caused her no issues until recently. She states that she has felt the baby move normally and denies any other symptoms except an irritating type pain where the cyst was located previously in the hole that she has had her whole life. Past Medical/Surgical History : RAPID HEARTBEAT -EKG WAS NORMAL : APPENDECTOMY : TONSILLITIS : CYST REMOVED Family History Diabetes: TY HDZ GRANDMOTHER Hypertension: TY HDZ GRANDMOTHER CHF: TY HDZ GRANDMOTHER Stroke: NONE Epilepsy: NONE Cancer: GRANDMOTHER/LEUKEMIA @21Y Renal Disease: NONE Heart Disease: NONE Social History Smoking history: Never smoker Alcohol: DENIES Drugs: DENIES Home Medications . Active Scripts Cephalexin (Keflex) 500 MG PO Q12HR Allergies Allergies Coded Allergies: Sulfa Antibiotics (Intermediate, VOMITING 05/11/23) Review of Systems Other 12 systems are reviewed and are negative except for as noted in the chief complaint and history of present illness. Examination Exam Vitals Vital Signs Date Time Temp Pulse Resp B/P B/P Pulse O2 O2 Flow FiO2 Mean Ox Delivery Rate 05/11 0817 96.7 104 18 109/70 97 GENERAL APPEARANCE: The patient is awake alert, cooperative, in no acute distress. VITAL SIGNS: Reviewed and as per nurses notes. SKIN: Soft, turgor with instant recoil, opening noted in the inner buttocks along the upper intergluteal cleft, very mild erythema and surrounding, tenderness on palpation, no drainage, swelling or obvious cyst formation is noted, surrounding skin is flesh-toned. HEAD: Normocephalic. Atraumatic. Facies is symmetric. EYES: Extraocular movements are intact. MOUTH and THROAT: Buccal mucosa is pink and moist. NECK: Neck is supple. Trachea is midline. No palpable lymphadenopathy. LUNGS: Lungs clear to auscultation. No adventitious sounds are audible. HEART: Heart regular rate and rhythm. No murmurs, rubs, or gallops. ABDOMEN: Soft, nontender, fundus is located at the level of the umbilicus. No masses or organomegaly. No rebound or guarding. Bowel sounds present in all four quadrants. No CVA tenderness, heart tones strong and within normal limits, see nurses notes. EXTREMITIES: Patient appears to move all extremities without pain or limitation. NEUROLOGIC: Alert and oriented X 3. Speech intact. Sensation is intact. PSYCHOLOGICAL: Mood and affect are appropriate to situation. Date of Last Tetanus: WITH IMMUNIZATIONS Assessment / Plan, ED Clinical Impression: Pilonidal Cyst Orders: All Orders Procedure Date/time Status HEART TONES 05/11 828 Active SEEN BY PHYSICIAN / PROVIDER 05/11 828 Active Medical Decision Making: I do not believe patient needs further evaluation at this time, but I did explain to her I want her to follow-up promptly with her OB and general surgery for further evaluation of the cyst. She has had it since she was born, so I do not find an emergent condition, even with her , but I did explain in great detail I would like her to follow-up with general surgery and at least 1 week to prevent the pilonidal cyst from complicating her and discuss further surgical options . She will empirically be started on Keflex 500 mg twice daily for 10 days to prevent the cyst from getting infected with a mild erythema surrounding. She is in agreement with the POC and will be discharged home in stable condition with mother at bedside. Condition: Good Disposition: HOME/FDC/ASSIST.MARIE(01) Prescriptions: Current Visit Scripts Cephalexin (Keflex) 500 MG PO Q12HR 10 Days #20 CAP Referrals: Amanda Pleitez OCCUPATIONAL THERAPY ASSIST (PCP/Family): As Needed Suzanne Dumont MD Patient Instructions: Pilonidal Cyst Additional Instructions: Please follow-up with general surgery and your OB within the next week Take medications as prescribed Keep area clean and dry Rest Plenty of fluids Tylenol for pain/fever Report to the ED for any new or worsening symptoms for prompt evaluation, otherwise follow up with your PCP/OB PH Maria Esther Collado APRN.RELIEF DRILLER Signed Electronically 05/11/23 0845 [facility] REPORT Normal [facility] [employer] Phone Msgon 02-18-2023 Phone Msg - From: Mariah Thompson Sent: 02/18/2023 10:48:52 EDT Subject: NO SHOW APPT FOR TODAY 02/18/23 Actions: Message Caller Name: TIANNA LOUIS; Caller Number: H L/M ON V/M TO CALL OFFICE. THANK YOU, SB Normal [facility] Transcribed Labs-Texton 01-18 Transcribed Labs-Text Transcibed Labs En tered On: 02/11/2023 8:31 EDT Performed On: 02/11/2023 8:30 EDT by Kenzie Bermudez MA Transcribed Labs Blood Type : O positive Chlamydia : Negative Chlamydia Date Performed : 01/11/2023 EDT Gonorrhea : Negative Gonorrhea Date Performed : 01/11/2023 EDT Kenzie Bermudez MA - 02/11/2023 8:30 EDT Normal [facility] Amorphous sediment detection in urine sediment by light microscopyOrdered By: Dr. Nguyen on 02-09-2023 Amorphous sediment LM Ql (Urine sed) 1+ URATE [facility] Basophil percentageOrdered B y: Dr. Nguyen on 02-09-2023 Basophil percentage 10-25 SEEN /hpf 0-5 [facility] Bilirubin Test strip Ql (U)O rdered By: Dr. Nguyen on 02-09-2023 Bilirubin Ql (U) Negative Negative [facility] Ketones Test strip Ql (U)Ord ered By: Dr. Nguyen on 02-09-2023 Ketones Ql (U) 150 mg/dl Negative [facility] Comment on above: CALLED TO Fuad FRANKEL RN ED [facility] 02-09-23 AT 2048PMCRITICAL VALUE *H Mucus LM Ql (Urine sed)Order ed By: Dr. Nguyen on 02-09-2023 Mucus Ql (Urine sed) 0 SEEN /hpf [facility] Nitrite Test strip Ql (U)Ord ered By: Dr. Nguyen on 02-09-2023 Nitrite Ql (U) Negative Negative [facility] Protein Test strip Ql (U)Ord ered By: Dr. Nguyen on 02-09-2023 Protein Ql (U) 30 mg/dl Negative [facility] Squamous epithelial cells de tection in urine sediment by light microscopyOrdered By: Dr. Nguyen on 02-09-2023 Epithelial cells.squamous LM Ql (Urine sed) 5-10 SEEN /hpf 5-10 [facility] Urine blood detectionOrdered By: Dr. Nguyen on 02-09-2023 RBC Ql (U) 25 /ul Negative [facility] RBC Ql (U) 0-5 SEEN /hpf 0-5 [facility] Urine clarityOrdered By: Dr. Nguyen on 02-09-2023 Clarity (U) Cloudy Clear [facility] Urine color determinationOrd ered By: Dr. Nguyen on 02-09-2023 Color (U) Yellow Yellow [facility] Urine glucose detectionOrder ed By: Dr. Nguyen on 02-09-2023 Glucose Ql (U) Normal mg/dl Normal [facility] Urine leukocyte esterase det ection by dipstickOrdered By: Dr. Nguyen on 02-09-2023 Leukocyte esterase Test strip Ql (U) 100 /ul Negative [facility] Urine pHOrdered By: Dr. Austin owens on 02-09-2023 pH (U) 5.0 [pH] 5.0 - 8.0 [facility] Urine sediment bacteria coun t by microscopy (number/high power field)Ordered By: Dr. Nguyen on 02-09-2023 Bacteria LM.HPF (Urine sed) [#/Area] RARE /hpf None Seen [facility] Urine specific gravity measu rementOrdered By: Dr. Nguyen on 02-09-2023 Specific gravity (U) [Rel density] 1.030 1.002-1.030 [facility] Urobilinogen Auto test strip Ql (U)Ordered By: Dr. Nguyen on 02-09-2023 Urobilinogen Ql (U) Normal mg/dl Normal [facility] Culture, urineOrdered By: Dr Monica Murphy on 02-05-2023 Bacteria identified Cx Nom (U) Positive [facility] Basophil percentageOrdered B y: ED PROVIDER on 02-04-2023 Basophil percentage 0-5 SEEN /hpf 0-5 [facility] Bilirubin Test strip Ql (U)O rdered By: ED PROVIDER on 02-04-2023 Bilirubin Ql (U) Negative Negative [facility] Ketones Test strip Ql (U)Ord ered By: ED PROVIDER on 02-04-2023 Ketones Ql (U) 150 mg/dl Negative [facility] Comment on above: CRITICAL VALUE *HCRI TICAL VALUE VERIFIED. CALLED TO [place] [phone] Kathryn Tripathi.RESULTS READ BACK BY SAME . Mucus LM Ql (Urine sed)Order ed By: ED PROVIDER on 02-04-2023 Mucus Ql (Urine sed) 0 SEEN /hpf [facility] Nitrite Test strip Ql (U)Ord ered By: ED PROVIDER on 02-04-2023 Nitrite Ql (U) Negative Negative [facility] Protein Test strip Ql (U)Ord ered By: ED PROVIDER on 02-04-2023 Protein Ql (U) 15 mg/dl Negative [facility] Serum or plasma choriogonado tropin detectionOrdered By: Dr. uMrphy on 02-04-2023 HCG ( test) [place] [address] mIU/mL <4 [facility] Comment on above: hCG levels with Gest ational AgeGestational Age hCG mIU/mL (IU/L)0.2 - 1 week 5 - 501-2 weeks 50 - 5002-3 weeks 100 - 24598-8 weeks 500 - 683415-8 weeks 1000 - 901647-9 weeks 14629 - 100,0006-8 weeks 01866 - 200,0002-3 months 08342 - 100,000 Squamous epithelial cells de tection in urine sediment by light microscopyOrdered By: ED PROVIDER on 02-04-2023 Epithelial cells.squamous LM Ql (Urine sed) 0-5 SEEN /hpf 5-10 [facility] Urine blood detectionOrdered By: ED PROVIDER on 02-04-2023 RBC Ql (U) 50 /ul Negative [facility] RBC Ql (U) 0-5 SEEN /hpf 0-5 [facility] Urine clarityOrdered By: ED PROVIDER on 02-04-2023 Clarity (U) Sl. Cloudy Clear [facility] Urine color determinationOrd ered By: ED PROVIDER on 02-04-2023 Color (U) Yellow Yellow [facility] Urine glucose detectionOrder ed By: ED PROVIDER on 02-04-2023 Glucose Ql (U) Normal mg/dl Normal [facility] Urine leukocyte esterase det ection by dipstickOrdered By: ED PROVIDER on 02-04-2023 Leukocyte esterase Test strip Ql (U) 100 /ul Negative [facility] Urine pHOrdered By: ED PROVI SHANAE on 02-04-2023 pH (U) 6.0 [pH] 5.0 - 8.0 [facility] Urine sediment bacteria coun t by microscopy (number/high power field)Ordered By: ED PROVIDER on 02-04-2023 Bacteria LM.HPF (Urine sed) [#/Area] RARE /hpf None Seen [facility] Urine specific gravity measu rementOrdered By: ED PROVIDER on 02-04-2023 Specific gravity (U) [Rel density] 1.025 1.002-1.030 [facility] Urobilinogen Auto test strip Ql (U)Ordered By: ED PROVIDER on 02-04-2023 Urobilinogen Ql (U) Normal mg/dl Normal [facility] HCG Ur QlOrdered By: Hebert Gasca on 11-27-2022 HCG ( test) Ql (U) Negative NEG [facility] No Panel InformationOrdered By: Hebert Gasca on 11-27-2022 Influenza Type A (RT-PCR) Not detected Not Detect [facility] Influenza Type B (RT-PCR) Not detected Not Detect [facility] Respiratory Syncytial Virus (PCR) Not detected Not Detect [facility] Comment on above: The Xpert Xpress EMRE S-CoV-2/FLU/RSV multiplex test is arapid, real time RT-PCR test intended for the qualitativedetection of nucleic acids from the SARS-CoV-2, Influenza A,Influenza B and RSV in upper respiratory specimenscollected from individuals who are suspected of an upperrespiratory infection. This test has been internally validated by the [facility] for use under an Emergency UseAuthorization (EUA) from the Food and Drug Administration(FDA). HCG Ur QlOrdered By: Alfreda Hogan on 11-25-2022 HCG ( test) Ql (U) Negative Negative [facility] Comment on above: Testing performed at [facility] Final Surgical Pathology Rep [facility] 04-10-2022 Final Surgical Pathology Report . Pathology Reports Accession: Collected Date/Time: Received Date/Time: Pathologist: [id number] 04/07/2022 08:03 EDT 04/07/2022 11:28 EDT DELL ANNA MD Final Surgical Pathology Report DIAGNOSIS: A) LEFT LABIA BIOPSY #1: PORTIONS OF CYST WALL LINED BY GRANULATION TISSUE AND HISTIOCYTE- RICH CHRONIC INFLAMMATION . NEGATIVE FOR MALIGNANCY. Comment: Additional levels examined. There is no definite epithelial lining. The possibility of Bartholin's duct cyst cannot be excluded. B) LEFT LABIA BIOPSY #2: VULVAR SKIN WITH NO SIGNIFICANT PATHOLOGIC CHANGES. CLINICAL INFORMATION: Procedure: EXAM UNDER ANESTHESIA, RESECTION OF VULVA MASS Preoperative diagnosis: LEFT VULVA MASS Postoperative diagnosis: LEFT VULVA MASS SPECIMEN: A LEFT LABIA BIOPSY #1 B LEFT LABIA BIOPSY #2 GROSS DESCRIPTION: A. Received in formalin, labeled with the patients name, Case #Erica, and left labia biopsy #1 are 2 fragments of foreman-purple tissue measuring 1.3 x 1.3 x 0.5 and 2.1 x 1.2 x 0.6 cm. Visible excision margins are inked black. TS -2. B. Received in formalin labeled left labia biopsy #2 are 2 unoriented skin ellipses measuring 1.2 x 0.5 x 0.3 and 2.8 x 1.4 x 0.7 cm. The larger segment of skin is disrupted centrally. Possible excision margins are inked black. TS -3 Dictated by AGNES MOREL MICROSCOPIC DESCRIPTION: Slides reviewed. Electronically Signed by Pathology Report verified by [facility] Electronically signed by DELL ANNA Sign out Date: 04/10/2022 16:04 Performing Lab: [address] Normal [facility] ([place]) ABO/Rh (Gel)on 04-07-2022 ABO/Rh Interp Positive Invalid Interpretation Code [facility] ([place]) Comment on above: Performed By: #### A LEXY HICKMAN #### [address] [address] ABS (Gel)on 04-07-2022 ABSC Interp (Gel) Negative Normal [facility] ([place]) Comment on above: Performed By: #### LEXY BROTHERS #### [address] [address] LABORATORYOrdered By: Kalpana Birch on 04-07-2022 Beta HCG ( test) Ql (U) Negative (04/07/22 5:43 AM) [facility] LABORATORYOrdered By: Yuliana Luque on 04-07-2022 ABO and Rh group Nom (Bld) Blood group O Rh(D) positive Invalid Interpretation Code AH BB Auto SS Blood group antibody screen Ql NEG (04/07/22 5:23 AM) Invalid Interpretation Code AH BB Auto SS .Auto Diffon 03-10-2022 Basophil, Absolute 0.10 10 3/mcL Normal 0.00-0.27 [facility] ([place]) Comment on above: Performed By: #### A DIFF, CBC, CMP, ANEU, GFR #### [address] [address] Basophils/100 WBC (Bld) 0.4 % Normal 0.0-2.5 [facility] ([place]) Comment on above: Performed By: #### A DIFF, CBC, CMP, ANEU, GFR #### [address] [address] Eosinophil, Absolute 0.00 10 3/mcL Normal 0.00-0.65 A [facility] ([place]) Comment on above: Performed By: #### A DIFF, CBC, CMP, ANEU, GFR #### [address] [address] Eosinophils/100 WBC (Bld) 0.2 % Normal 0.0-6.0 [facility] ([place]) Comment on above: Performed By: #### A DIFF, CBC, CMP, ANEU, GFR #### [address] [address] Lymphocyte, Absolute 1.50 10 3/mcL Normal 0.90-4.32 A [facility] ([place]) Comment on above: Performed By: #### A DIFF, CBC, CMP, ANEU, GFR #### [address] [address] Lymphocytes/100 WBC (Bld) 7.8 % Low 20.0-40.0 [facility] ([place]) Comment on above: Performed By: #### A DIFF, CBC, CMP, ANEU, GFR #### [address] [address] Monocyte, Absolute 0.90 10 3/mcL Normal 0.09-1.40 [facility] ([place]) Comment on above: Performed By: #### A DIFF, CBC, CMP, ANEU, GFR #### [address] [address] Monocytes/100 WBC (Bld) 4.7 % Normal 2.0-13.0 [facility] ([place]) Comment on above: Performed By: #### A DIFF, CBC, CMP, ANEU, GFR #### [address] [address] Neutrophils/100 WBC (Bld) 86.9 % High 50.0-75.0 [facility] ([place]) Comment on above: Performed By: #### A DIFF, CBC, CMP, ANEU, GFR #### [address] [address] .GFRon 03-10-2022 GFR >60 Normal [facility] ([place]) Comment on above: Result Comment: GFR Population mean for , Non- Americans Ages 20-29 = 116 mL/min/1.73 sq.m. Ages 30-39 = 107 mL/min/1.73 sq.m. Ages 40-49 = 99 mL/min/1.73 sq.m. Ages 50-59 = 93 mL/min/1.73 sq.m. Ages 60-69 = 85 mL/min/1.73 sq.m. Ages 70+ = 75 mL/min/1.73 sq.m. Chronic Kidney Disease: Less than 60 mL/min/1.73 square meters End Stage Renal Disease: Less than 15 mL/min/1.73 square meters Performed By: #### A DIFF, CBC, CMP, ANEU, GFR #### [address] [address] GFR Non- >60 Normal [facility] ([place]) Comment on above: Result Comment: GFR Population mean for , Non- Americans Ages 20-29 = 116 mL/min/1.73 sq.m. Ages 30-39 = 107 mL/min/1.73 sq.m. Ages 40-49 = 99 mL/min/1.73 sq.m. Ages 50-59 = 93 mL/min/1.73 sq.m. Ages 60-69 = 85 mL/min/1.73 sq.m. Ages 70+ = 75 mL/min/1.73 sq.m. Chronic Kidney Disease: Less than 60 mL/min/1.73 square meters End Stage Renal Disease: Less than 15 mL/min/1.73 square meters Performed By: #### A DIFF, CBC, CMP, ANEU, GFR #### [place] [address] .NEUABSon 03-10-2022 Neutrophil, Absolute 16.30 10 3/mcL High 2.25-8.10 [facility] ([place]) Comment on above: Performed By: #### A DIFF, CBC, CMP, ANEU, GFR #### [place] [address] CBCon 03-10-2022 Erythrocyte distribution width (RBC) [Ratio] 13.5 % Normal 11.5-15.5 [facility] ([place]) Comment on above: Performed By: #### A DIFF, CBC, CMP, ANEU, GFR #### [place] [address] Hematocrit (Bld) [Volume fraction] 42.6 % Normal 34.0-46.0 [facility] ([place]) Comment on above: Performed By: #### A DIFF, CBC, CMP, ANEU, GFR #### [place] [address] Hgb 14.1 G/dL Normal 12.0-16.0 [facility] ([place]) Comment on above: Performed By: #### A DIFF, CBC, CMP, ANEU, GFR #### [place] [address] MCH (RBC) [Entitic mass] 31.3 pg Normal 27.0-33.0 [facility] ([place]) Comment on above: Performed By: #### A DIFF, CBC, CMP, ANEU, GFR #### [place] [address] MCHC 33.0 G/dL Normal 32.0-36.0 [facility] ([place]) Comment on above: Performed By: #### A DIFF, CBC, CMP, ANEU, GFR #### [address] [address] MCV (RBC) [Entitic vol] 94.8 fL Normal 80.0-99.0 [facility] ([place]) Comment on above: Performed By: #### A DIFF, CBC, CMP, ANEU, GFR #### [address] [address] Platelet 359 10 3/mcL Normal 150-450 [facility] ([place]) Comment on above: Performed By: #### A DIFF, CBC, CMP, ANEU, GFR #### [place] [id number] Platelet mean volume (Bld) [Entitic vol] 8.8 fL Normal 6.6-10.5 [facility] ([place]) Comment on above: Performed By: #### A DIFF, CBC, CMP, ANEU, GFR #### [place] [id number] RBC 4.50 10 6/mcL Normal 4.10-5.30 [facility] ([place]) Comment on above: Performed By: #### A DIFF, CBC, CMP, ANEU, GFR #### [place] [id number] WBC 18.80 10 3/mcL High 4.50-10.80 [facility] ([place]) Comment on above: Performed By: #### A DIFF, CBC, CMP, ANEU, GFR #### [place] [id number] CMPon 03-10-2022 Albumin Level 4.0 G/dL Normal 3.2-4.8 [facility] ([place]) Comment on above: Performed By: #### A DIFF, CBC, CMP, ANEU, GFR #### [place] [id number] Albumin/Globulin [Mass ratio] 1.1 {ratio} Normal 0.9-1.6 [facility] ([place]) Comment on above: Performed By: #### A DIFF, CBC, CMP, ANEU, GFR #### [place] [id number] ALP [Catalytic activity/Vol] 117 U/L Normal 28-126 [facility] ([place]) Comment on above: Performed By: #### A DIFF, CBC, CMP, ANEU, GFR #### [address] [address] ALT [Catalytic activity/Vol] 35 U/L Normal 10-49 [facility] ([place]) Comment on above: Performed By: #### A DIFF, CBC, CMP, ANEU, GFR #### [address] [address] AST [Catalytic activity/Vol] 35 U/L High 8-34 [facility] ([place]) Comment on above: Performed By: #### A DIFF, CBC, CMP, ANEU, GFR #### [address] [address] Bili Total 0.80 mg/dL Normal 0.20-1.20 [facility] ([place]) Comment on above: Result Comment: Use of this assay is not recommended for patients undergoing treatment with eltrombopag due to the potential for falsely elevated results. Performed By: #### A DIFF, CBC, CMP, ANEU, GFR #### [address] [address] BUN/Creatinine Ratio 17.2 ratio Normal 10.0-22.0 [facility] ([place]) Comment on above: Performed By: #### A DIFF, CBC, CMP, ANEU, GFR #### [address] [address] Calcium [Mass/Vol] 9.5 mg/dL Normal 8.7-10.4 [facility] ([place]) Comment on above: Performed By: #### A DIFF, CBC, CMP, ANEU, GFR #### [address] [address] Chloride [Moles/Vol] 104 mmol/L Normal 98-110 [facility] ([place]) Comment on above: Performed By: #### A DIFF, CBC, CMP, ANEU, GFR #### [address] [address] CO2 [Moles/Vol] 23 mmol/L Normal 22-32 [facility] ([place]) Comment on above: Performed By: #### A DIFF, CBC, CMP, ANEU, GFR #### [address] [address] Creatinine [Mass/Vol] 0.64 mg/dL Normal 0.50-1.20 [facility] ([place]) Comment on above: Performed By: #### A DIFF, CBC, CMP, ANEU, GFR #### [address] [address] Electrolyte Balance 10.0 mEq/L Normal 4.0-15.0 [facility] ([place]) Comment on above: Performed By: #### A DIFF, CBC, CMP, ANEU, GFR #### [address] [address] Globulin 3.8 G/dL Normal 1.5-3.8 [facility] ([place]) Comment on above: Performed By: #### A DIFF, CBC, CMP, ANEU, GFR #### [address] [address] Glucose [Mass/Vol] 85 mg/dL Normal 70-110 [facility] ([place]) Comment on above: Performed By: #### A DIFF, CBC, CMP, ANEU, GFR #### [address] [address] Potassium [Moles/Vol] 4.7 mmol/L Normal 3.5-5.0 [facility] ([place]) Comment on above: Result Comment: Spec imen slightly hemolyzed. Performed By: #### A DIFF, CBC, CMP, ANEU, GFR #### [address] [address] Sodium [Moles/Vol] 137 mmol/L Normal 136-145 [facility] ([place]) Comment on above: Performed By: #### A DIFF, CBC, CMP, ANEU, GFR #### [address] [address] Total Protein 7.8 G/dL Normal 5.7-8.2 [facility] ([place]) Comment on above: Result Comment: No te - New Reference Range in effect 20 Performed By: #### A DIFF, CBC, CMP, ANEU, GFR #### [place] [id number] [place] [address] Urea nitrogen [Mass/Vol] 11.0 mg/dL Normal 8.0-22.0 [facility] ([place]) Comment on above: Performed By: #### A DIFF, CBC, CMP, ANEU, GFR #### [place] [id number] [place] [address] US GROIN LEFTon 03-10-2022 US GROIN LEFT ORIGINAL EXAMINATION: Left groin/labial ULTRASOUND03/10/2022 4:06 pm COMPARISON: None [...] be a complex cystic mass with debris. Interpreted by: Manuel Wall MD Preliminary Report By: Manuel Wall MD Electronically signed By Manuel Wall MD Dictated Date: 03/10/2022 4:26:19 PM Prelim Date: 03/10/2022 4:28:24 PM Sign Date: 03/10/2022 4:28:24 PM Ordering Provider: AMANDA LE [facility]) XR CHEST 2 VIEWSon XR CHEST 2 VIEWS ORIGINAL EXAMINATION: TWO XRAY VIEWS OF THE CHEST 03/10/2022 4:12 pm COMPARISON: None. HISTORY: ORDERING SYSTEM PROVIDED HISTORY: Reason for Exam: preprocedural respiratory examination. FINDINGS: The lungs are without acute focal process. There is no effusion or pneumothorax. The cardiomediastinal silhouette is without acute process. The osseous structures are without acute process. IMPRESSION: No acute process. Interpreted by: Xavi Mcgowan DO Preliminary Report By: Xavi Mcgowan DO Electronically signed By Xavi Mcgowan DO Dictated Date: 03/10/2022 4:25:41 PM Prelim Date: 03/10/2022 4:26:04 PM Sign Date: 03/10/2022 4:26:04 PM Ordering Provider: AMANDA Emerson [facility] ([place]) Vital Signs Date Time Vital Sign Value Performing Clinician Facility 04-03-2025 14:20-0400 Body mass index (BMI) [Ratio] 19.73 kg/m2 Елена Valladares MD Work Phone: [facility] 04-03-2025 14:20-0400 Body weight 50.53 kg Елена Valladares MD Work Phone: [facility] 04-03-2025 14:20-0400 Diastolic blood pressure 70 mm[Hg] Елена Valladares MD Work Phone: [facility] 04-03-2025 14:20-0400 Systolic blood pressure 116 mm[Hg] Елена Valladares MD Work Phone: [facility] 03-16-2025 15:31-0400 Body mass index (BMI) [Ratio] 19.7 kg/m2 Елена Valladares MD Work Phone: [facility] 03-16-2025 15:31-0400 Body weight 50.44 kg Елена Valladares MD Work Phone: [facility] 03-16-2025 15:31-0400 Diastolic blood pressure 60 mm[Hg] Елена Valladares MD Work Phone: [facility] 03-16-2025 15:31-0400 Systolic blood pressure 100 mm[Hg] Елена Valladares MD Work Phone: [facility] 03-02-2025 10:24-0400 Body height 160 cm Елена Valladares MD Work Phone: [facility] 03-02-2025 10:24-0400 Body mass index (BMI) [Ratio] 20.48 kg/m2 Елена Valladares MD Work Phone: [facility] 03-02-2025 10:24-0400 Body weight 52.44 kg Елена Valladares MD Work Phone: [facility] 03-02-2025 10:24-0400 Diastolic blood pressure 64 mm[Hg] Елена Valladares MD Work Phone: [facility] 03-02-2025 10:24-0400 Heart rate 80 /min Елена Valladares MD Work Phone: [facility] 03-02-2025 10:24-0400 Respiratory rate 14 /min Елена Valladares MD Work Phone: [facility] 03-02-2025 10:24-0400 Systolic blood pressure 102 mm[Hg] Елена Valladares MD Work Phone: [facility] 12-14-2024 08:55-0500 Body height 160 cm Baljit Harvey MD Work Phone: [facility] 12-14-2024 08:55-0500 Body mass index (BMI) [Ratio] 20.9 kg/m2 Baljit Harvey MD Work Phone: [facility] 12-14-2024 08:55-0500 Body temperature 99.1 [degF] Baljit Harvey MD Work Phone: [facility] 12-14-2024 08:55-0500 Body weight 53.52 kg Baljit Harvey MD Work Phone: [facility] 12-14-2024 08:55-0500 Diastolic blood pressure 72 mm[Hg] Baljit Harvey MD Work Phone: [facility] 12-14-2024 08:55-0500 Heart rate 94 /min Baljit Harvey MD Work Phone: [facility] 12-14-2024 08:55-0500 Respiratory rate 17 /min Baljit Harvey MD Work Phone: [facility] 12-14-2024 08:55-0500 SaO2% (BldA) [Mass fraction] 100 % Baljit Harvey MD Work Phone: [facility] 12-14-2024 08:55-0500 Systolic blood pressure 118 mm[Hg] Baljit Harvey MD Work Phone: [facility] 12-01-2024 13:56-0500 Body height 160 cm Sly Cam MD Work Phone: [facility] 12-01-2024 13:56-0500 Body mass index (BMI) [Ratio] 20.9 kg/m2 Sly Cam MD Work Phone: [facility] 12-01-2024 13:56-0500 Body temperature 98.4 [degF] Sly Cam MD Work Phone: [facility] 12-01-2024 13:56-0500 Body weight 53.52 kg Sly Cam MD Work Phone: [facility] 12-01-2024 13:56-0500 Diastolic blood pressure 71 mm[Hg] Sly Cam MD Work Phone: [facility] 12-01-2024 13:56-0500 Heart rate 114 /min Sly Cam MD Work Phone: [facility] 12-01-2024 13:56-0500 Respiratory rate 17 /min Sly Cam MD Work Phone: [facility] 12-01-2024 13:56-0500 SaO2% (BldA) [Mass fraction] 98 % Sly Cam MD Work Phone: [facility] 12-01-2024 13:56-0500 Systolic blood pressure 102 mm[Hg] Sly Cam MD Work Phone: [facility] 11-07-2024 09:21-0500 Body mass index (BMI) [Ratio] 22.32 kg/m2 Abhay Bone APRN.CNM Work Phone: [facility] 11-07-2024 09:21-0500 Body weight 57.15 kg Abhay Bone APRN.CNM Work Phone: [facility] 11-07-2024 09:21-0500 Diastolic blood pressure 76 mm[Hg] Abhay Bone APRN.CNM Work Phone: [facility] 11-07-2024 09:21-0500 Systolic blood pressure 108 mm[Hg] Abhay Bone APRN.CNM Work Phone: [facility] 09-27-2024 08:24-0500 Body mass index (BMI) [Ratio] 21.79 kg/m2 Kelley Sprandel DO Work Phone: [facility] 09-27-2024 08:24-0500 Body temperature 98.6 [degF] Kelley Sprandel DO Work Phone: [facility] 09-27-2024 08:24-0500 Body weight 55.79 kg [place] Sprandel DO Work Phone: [facility] 09-27-2024 08:24-0500 Diastolic blood pressure 71 mm[Hg] [place] Sprandel DO Work Phone: [facility] 09-27-2024 08:24-0500 Heart rate 89 /min [place] Sprandel DO Work Phone: [facility] 09-27-2024 08:24-0500 SaO2% (BldA) [Mass fraction] 98 % Kelley Sprandel DO Work Phone: [facility] 09-27-2024 08:24-0500 Systolic blood pressure 106 mm[Hg] [place] Sprandel DO Work Phone: [facility] 06-21-2024 10:04-0400 Body mass index (BMI) [Ratio] 23.74 kg/m2 Melissa Depew ENVIRONMENTAL HEALTH SANITARIAN.RELIEF DRILLER Work Phone: [facility] 06-21-2024 10:04-0400 Body weight 60.78 kg Melissa Blade ENVIRONMENTAL HEALTH SANITARIAN.RELIEF DRILLER Work Phone: [facility] 06-21-2024 10:04-0400 Diastolic blood pressure 60 mm[Hg] Melissa Blade ENVIRONMENTAL HEALTH SANITARIAN.RELIEF DRILLER Work Phone: [facility] 06-21-2024 10:04-0400 Systolic blood pressure 100 mm[Hg] Melissa Blade ENVIRONMENTAL HEALTH SANITARIAN.RELIEF DRILLER Work Phone: [facility] 04-03-2024 14:28-0400 Diastolic blood pressure 71 mm[Hg] MAHESH Pleitez Other Phone: [facility] 04-03-2024 14:28-0400 Heart rate 94 /min OCCUPATIONAL THERAPY ASSIST Amanda Aftanas Other Phone: [facility] 04-03-2024 14:28-0400 Respiratory rate 18 /min OCCUPATIONAL THERAPY ASSIST Amanda Aftanas Other Phone: [facility] 04-03-2024 14:28-0400 Systolic blood pressure 109 mm[Hg] OCCUPATIONAL THERAPY ASSIST Amanda Aftanas Other Phone: [facility] 04-03-2024 11:29-0400 Body height 160.02 cm OCCUPATIONAL THERAPY ASSIST Amanda Aftanas Other Phone: [facility] 04-03-2024 11:29-0400 Body mass index (BMI) [Ratio] 24 kg/m2 OCCUPATIONAL THERAPY ASSIST Amanda Aftanas Other Phone: [facility] 04-03-2024 11:29-0400 Body temperature 98.5 [degF] OCCUPATIONAL THERAPY ASSIST Amanda Aftanas Other Phone: [facility] 04-03-2024 11:29-0400 Body weight 61.4 kg OCCUPATIONAL THERAPY ASSIST Amanda Aftanas Other Phone: [facility] 04-03-2024 11:29-0400 SaO2% (BldA) [Mass fraction] 99 % OCCUPATIONAL THERAPY ASSIST Amanda Aftanas Other Phone: [facility] 09-28-2023 15:20-0500 Body weight 64.32 kg Claudia Stone APRN.CNLatoya Work Phone: [facility] 09-28-2023 15:20-0500 Diastolic blood pressure 70 mm[Hg] Claudia Stone APRN.CNLatoya Work Phone: [facility] 09-28-2023 15:20-0500 Systolic blood pressure 110 mm[Hg] Claudia Stone APRN.CNLatoya Work Phone: [facility] 09-14-2023 15:34-0500 Body height 160 cm Baljit Harvey MD Work Phone: [facility] 09-14-2023 15:34-0500 Body temperature 97.9 [degF] Baljit Harvey MD Work Phone: [facility] 09-14-2023 15:34-0500 Body weight 61.24 kg Baljit Harvey MD Work Phone: [facility] 09-14-2023 15:34-0500 Diastolic blood pressure 75 mm[Hg] Baljit Harvey MD Work Phone: [facility] 09-14-2023 15:34-0500 Heart rate 96 /min Baljit Harvey MD Work Phone: [facility] 09-14-2023 15:34-0500 Respiratory rate 18 /min Baljit Harvey MD Work Phone: [facility] 09-14-2023 15:34-0500 SaO2% (BldA) [Mass fraction] 99 % Baljit Harvey MD Work Phone: [facility] 09-14-2023 15:34-0500 Systolic blood pressure 116 mm[Hg] Baljit Harvey MD Work Phone: [facility] 08-31-2023 11:08-0500 Body weight 64.14 kg Claudia Stone APRN.CNLatoya Work Phone: [facility] 08-31-2023 11:08-0500 Diastolic blood pressure 68 mm[Hg] Claudia Stone APRN.CNLatoya Work Phone: [facility] 08-31-2023 11:08-0500 Systolic blood pressure 102 mm[Hg] Claudia Sotne APRN.CNLatoya Work Phone: [facility] 08-17-2023 07:24-0400 Body temperature 98.5 [degF] [facility] 08-17-2023 07:24-0400 Diastolic blood pressure 81 mm[Hg] [facility] 08-17-2023 07:24-0400 Heart rate 115 /min [facility] 08-17-2023 07:24-0400 Respiratory rate 16 /min [facility] 08-17-2023 07:24-0400 SaO2% (BldA) [Mass fraction] 99 % [facility] 08-17-2023 07:24-0400 Systolic blood pressure 125 mm[Hg] [facility] 08-15-2023 04:50-0400 Body height 160.02 cm [facility] 08-15-2023 04:50-0400 Body mass index (BMI) [Ratio] 28.5 kg/m2 [facility] 08-15-2023 04:50-0400 Body weight 73.1 kg [facility] 08-12-2023 16:15-0400 Body weight 72.67 kg Abhay Plotts ENVIRONMENTAL HEALTH SANITARIAN.CNM Work Phone: [facility] 08-12-2023 16:15-0400 Diastolic blood pressure 70 mm[Hg] Abhay Plotts ENVIRONMENTAL HEALTH SANITARIAN.CNM Work Phone: [facility] 08-12-2023 16:15-0400 Systolic blood pressure 110 mm[Hg] Abhay Plotts ENVIRONMENTAL HEALTH SANITARIAN.CNM Work Phone: [facility] 08-05-2023 13:01-0400 Body weight 73.03 kg Abhay Plotts ENVIRONMENTAL HEALTH SANITARIAN.CNM Work Phone: [facility] 08-05-2023 13:01-0400 Diastolic blood pressure 82 mm[Hg] Abhay Plotts ENVIRONMENTAL HEALTH SANITARIAN.CNM Work Phone: [facility] 08-05-2023 13:01-0400 Systolic blood pressure 128 mm[Hg] Abhay Plotts ENVIRONMENTAL HEALTH SANITARIAN.CNM Work Phone: [facility] 07-25-2023 02:15-0400 Body temperature 97 [degF] [facility] 07-25-2023 02:15-0400 Diastolic blood pressure 68 mm[Hg] [facility] 07-25-2023 02:15-0400 Heart rate 84 /min [facility] 07-25-2023 02:15-0400 Respiratory rate 16 /min [facility] 07-25-2023 02:15-0400 SaO2% (BldA) [Mass fraction] 99 % [facility] 07-25-2023 02:15-0400 Systolic blood pressure 124 mm[Hg] [facility] 07-24-2023 23:01-0400 Body mass index (BMI) [Ratio] 27.6 kg/m2 [facility] 07-24-2023 23:01-0400 Body weight 70.57 kg [facility] 07-20-2023 21:26-0400 Heart rate 120 /min [facility] 07-20-2023 21:26-0400 SaO2% (BldA) [Mass fraction] 98 % [facility] 07-20-2023 20:03-0400 Body temperature 99.6 [degF] [facility] 07-20-2023 19:59-0400 Body height 160.02 cm [facility] 07-20-2023 19:59-0400 Body mass index (BMI) [Ratio] 27.2 kg/m2 [facility] 07-20-2023 19:59-0400 Body weight 69.76 kg [facility] 07-20-2023 19:59-0400 Diastolic blood pressure 78 mm[Hg] [facility] 07-20-2023 19:59-0400 Systolic blood pressure 125 mm[Hg] [facility] 07-13-2023 07:53-0400 Body weight 68.49 kg Abhay Bone ENVIRONMENTAL HEALTH SANITARIAN.CNM Work Phone: [facility] 07-13-2023 07:53-0400 Diastolic blood pressure 80 mm[Hg] Abhay Bone ENVIRONMENTAL HEALTH SANITARIAN.CNM Work Phone: [facility] 07-13-2023 07:53-0400 Systolic blood pressure 120 mm[Hg] Abhay Bone ENVIRONMENTAL HEALTH SANITARIAN.CNM Work Phone: [facility] 07-03-2023 19:00-0400 Body temperature 98.1 [degF] [facility] 07-03-2023 19:00-0400 Body weight 65.77 kg [facility] 07-03-2023 19:00-0400 Diastolic blood pressure 80 mm[Hg] [facility] 07-03-2023 19:00-0400 Heart rate 103 /min [facility] 07-03-2023 19:00-0400 Respiratory rate 16 /min [facility] 07-03-2023 19:00-0400 SaO2% (BldA) [Mass fraction] 99 % [facility] 07-03-2023 19:00-0400 Systolic blood pressure 117 mm[Hg] [facility] 07-03-2023 18:18-0400 Body height 160.02 cm [facility] 07-03-2023 18:18-0400 Body mass index (BMI) [Ratio] 25.7 kg/m2 [facility] 07-03-2023 18:18-0400 Body weight 66 kg [facility] 07-03-2023 18:07-0400 Body temperature 97.1 [degF] [facility] 07-03-2023 18:07-0400 Diastolic blood pressure 77 mm[Hg] [facility] 07-03-2023 18:07-0400 Heart rate 167 /min [facility] 07-03-2023 18:07-0400 SaO2% (BldA) [Mass fraction] 93 % [facility] 07-03-2023 18:07-0400 Systolic blood pressure 134 mm[Hg] [facility] 06-10-2023 14:07-0400 Body height 160 cm Abhay Bone ENVIRONMENTAL HEALTH SANITARIAN.CNM Work Phone: [facility] 06-10-2023 14:07-0400 Body weight 64.41 kg Abhay Plotkyle ENVIRONMENTAL HEALTH SANITARIAN.CNM Work Phone: [facility] 06-10-2023 14:07-0400 Diastolic blood pressure 58 mm[Hg] Abhay Plotts ENVIRONMENTAL HEALTH SANITARIAN.CNM Work Phone: [facility] 06-10-2023 14:07-0400 Systolic blood pressure 92 mm[Hg] Abhay Plotts ENVIRONMENTAL HEALTH SANITARIAN.CNM Work Phone: [facility] 05-14-2023 06:51-0400 Heart rate 108 /min MAHESH Pleitez Other Phone: [facility] 05-14-2023 02:34-0400 Respiratory rate 18 /min OCCUPATIONAL THERAPY ASSIST Amanda Aftanas Other Phone: [facility] 05-14-2023 02:34-0400 SaO2% (BldA) [Mass fraction] 97 % OCCUPATIONAL THERAPY ASSIST Amanda Aftanas Other Phone: [facility] 05-14-2023 00:12-0400 Body height 162.56 cm OCCUPATIONAL THERAPY ASSIST Amanda Aftanas Other Phone: [facility] 05-14-2023 00:12-0400 Body mass index (BMI) [Ratio] 23.1 kg/m2 OCCUPATIONAL THERAPY ASSIST Amanda Aftanas Other Phone: [facility] 05-14-2023 00:12-0400 Body temperature 98.5 [degF] OCCUPATIONAL THERAPY ASSIST Amanda Aftanas Other Phone: [facility] 05-14-2023 00:12-0400 Body weight 61 kg OCCUPATIONAL THERAPY ASSIST Amanda Aftanas Other Phone: [facility] 05-14-2023 00:12-0400 Diastolic blood pressure 71 mm[Hg] OCCUPATIONAL THERAPY ASSIST Amanda Aftanas Other Phone: [facility] 05-14-2023 00:12-0400 Systolic blood pressure 109 mm[Hg] OCCUPATIONAL THERAPY ASSIST Amanda Aftanas Other Phone: [facility] 05-11-2023 08:17-0400 Body temperature 96.7 [degF] OCCUPATIONAL THERAPY ASSIST Amanda Aftanas Other Phone: [facility] 05-11-2023 08:17-0400 Diastolic blood pressure 70 mm[Hg] OCCUPATIONAL THERAPY ASSIST Amanda Aftanas Other Phone: [facility] 05-11-2023 08:17-0400 Heart rate 104 /min OCCUPATIONAL THERAPY ASSIST Amanda Aftanas Other Phone: [facility] 05-11-2023 08:17-0400 Respiratory rate 18 /min OCCUPATIONAL THERAPY ASSIST Amanda Aftanas Other Phone: [facility] 05-11-2023 08:17-0400 SaO2% (BldA) [Mass fraction] 97 % OCCUPATIONAL THERAPY ASSIST Amanda Pleitez Other Phone: [facility] 05-11-2023 08:17-0400 Systolic blood pressure 109 mm[Hg] OCCUPATIONAL THERAPY ASSIST Amanda Pleitez Other Phone: [facility] 02-09-2023 21:37-0400 Diastolic blood pressure 69 mm[Hg] [facility] 02-09-2023 21:37-0400 Heart rate 81 /min [facility] 02-09-2023 21:37-0400 Systolic blood pressure 115 mm[Hg] [facility] 02-09-2023 16:58-0400 Body height 160.02 cm [facility] 02-09-2023 16:58-0400 Body mass index (BMI) [Percentile] Per age and sex 56.9 % [facility] 02-09-2023 16:58-0400 Body mass index (BMI) [Ratio] 22.3 kg/m2 [facility] 02-09-2023 16:58-0400 Body temperature 96.3 [degF] [facility] 02-09-2023 16:58-0400 Body weight 57.15 kg [facility] 02-09-2023 16:58-0400 Respiratory rate 22 /min [facility] 02-09-2023 16:58-0400 SaO2% (BldA) [Mass fraction] 97 % [facility] 02-04-2023 20:28-0400 Body mass index (BMI) [Percentile] Per age and sex 64.9 % [facility] 02-04-2023 20:28-0400 Body mass index (BMI) [Ratio] 23.1 kg/m2 [facility] 02-04-2023 20:28-0400 Body weight 59.2 kg [facility] 02-04-2023 19:48-0400 Body height 160.02 cm [facility] 02-04-2023 19:48-0400 Body temperature 97.1 [degF] [facility] 02-04-2023 19:48-0400 Diastolic blood pressure 76 mm[Hg] [facility] 02-04-2023 19:48-0400 Heart rate 110 /min [facility] 02-04-2023 19:48-0400 Respiratory rate 18 /min [facility] 02-04-2023 19:48-0400 SaO2% (BldA) [Mass fraction] 99 % [facility] 02-04-2023 19:48-0400 Systolic blood pressure 120 mm[Hg] [facility] 11-27-2022 12:27-0500 Diastolic blood pressure 78 mm[Hg] OCCUPATIONAL THERAPY ASSIST Amanda Aftanas Other Phone: [facility] 11-27-2022 12:27-0500 Heart rate 70 /min OCCUPATIONAL THERAPY ASSIST Amanda Aftanas Other Phone: [facility] 11-27-2022 12:27-0500 Respiratory rate 16 /min OCCUPATIONAL THERAPY ASSIST Amanda Aftanas Other Phone: [facility] 11-27-2022 12:27-0500 SaO2% (BldA) [Mass fraction] 100 % OCCUPATIONAL THERAPY ASSIST Amanda Aftanas Other Phone: [facility] 11-27-2022 12:27-0500 Systolic blood pressure 124 mm[Hg] OCCUPATIONAL THERAPY ASSIST Amanda Aftanas Other Phone: [facility] 11-27-2022 10:23-0500 Body height 160.02 cm OCCUPATIONAL THERAPY ASSIST Amanda Aftanas Other Phone: [facility] 11-27-2022 10:23-0500 Body mass index (BMI) [Percentile] Per age and sex 50 % OCCUPATIONAL THERAPY ASSIST Amanda Aftanas Other Phone: [facility] 11-27-2022 10:23-0500 Body mass index (BMI) [Ratio] 25 kg/m2 OCCUPATIONAL THERAPY ASSIST Amanda Aftanas Other Phone: [facility] 11-27-2022 10:23-0500 Body temperature 99.5 [degF] OCCUPATIONAL THERAPY ASSIST Amanda Aftanas Other Phone: [facility] 11-27-2022 10:23-0500 Body weight 64 kg OCCUPATIONAL THERAPY ASSIST Amanda Metcalftanas Other Phone: [facility] 11-25-2022 12:45-0500 Body temperature 97.9 [degF] OCCUPATIONAL THERAPY ASSIST Amanda Metcalftanas Other Phone: [facility] 11-25-2022 12:45-0500 Diastolic blood pressure 78 mm[Hg] OCCUPATIONAL THERAPY ASSIST Amanda Metcalftanas Other Phone: [facility] 11-25-2022 12:45-0500 Heart rate 104 /min OCCUPATIONAL THERAPY ASSIST Amanda Metcalftanas Other Phone: [facility] 11-25-2022 12:45-0500 Respiratory rate 18 /min OCCUPATIONAL THERAPY ASSIST Amanda Metcalftanas Other Phone: [facility] 11-25-2022 12:45-0500 SaO2% (BldA) [Mass fraction] 99 % OCCUPATIONAL THERAPY ASSIST Amanda Metcalftanmariia Other Phone: [facility] 11-25-2022 12:45-0500 Systolic blood pressure 118 mm[Hg] OCCUPATIONAL THERAPY ASSIST Amanda Stevensonas Other Phone: [facility] 09-07-2022 10:05-0500 Body height 160.02 cm [facility] 09-07-2022 10:05-0500 Body mass index (BMI) [Ratio] 23 kg/m2 [facility] 09-07-2022 10:05-0500 Body temperature 98.8 [degF] [facility] 09-07-2022 10:05-0500 Body weight 59 kg [facility] 09-07-2022 10:05-0500 Diastolic blood pressure 83 mm[Hg] [facility] 09-07-2022 10:05-0500 Heart rate 108 /min [facility] 09-07-2022 10:05-0500 Respiratory rate 20 /min [facility] 09-07-2022 10:05-0500 SaO2% (BldA) [Mass fraction] 98 % [facility] 09-07-2022 10:05-0500 Systolic blood pressure 138 mm[Hg] [employer] 07-24-2022 11:53-0400 Body height 160.02 cm [employer] Work Phone: 07-24-2022 11:53-0400 Body mass index (BMI) [Ratio] 23.1 kg/m2 [employer] Work Phone: 07-24-2022 11:53-0400 Body temperature 98 [degF] [employer] Work Phone: 07-24-2022 11:53-0400 Body weight 59.09 kg [employer] Work Phone: 07-24-2022 11:53-0400 Diastolic blood pressure 80 mm[Hg] [employer] Work Phone: 07-24-2022 11:53-0400 Heart rate 107 /min [employer] Work Phone: 07-24-2022 11:53-0400 Respiratory rate 18 /min [employer] Work Phone: 07-24-2022 11:53-0400 SaO2% (BldA) [Mass fraction] 97 % [employer] Work Phone: 07-24-2022 11:53-0400 Systolic blood pressure 144 mm[Hg] [employer] Work Phone: 04-07-2022 13:25-0400 Body temperature 97.52 [degF] AMANDA LE MD [facility] 04-07-2022 13:25-0400 Diastolic blood pressure 76 mm[Hg] AMANDA LE MD [facility] 04-07-2022 13:25-0400 Heart rate 88 /min AMANDA LE MD [facility] 04-07-2022 13:25-0400 Respiratory rate 18 /min AMANDA LE MD [facility] 04-07-2022 13:25-0400 Systolic blood pressure 118 mm[Hg] AMANDA LE MD [facility] 04-07-2022 11:35-0400 Body temperature 97.7 [degF] AMANDA LE MD [facility] 04-07-2022 11:35-0400 Diastolic Blood Pressure NBP 64 1 AMANDA LE MD [facility] 04-07-2022 11:35-0400 Heart rate 90 /min AMANDA LE MD [facility] 04-07-2022 11:35-0400 Reason For Taking VItal Signs AMANDA LE MD [facility] 04-07-2022 11:35-0400 Respiratory rate 18 /min AMANDA LE MD [facility] 04-07-2022 11:35-0400 Systolic Blood Pressure NBP 104 1 AMANDA LE MD [facility] 04-07-2022 10:30-0400 Diastolic Blood Pressure NBP 70 1 AMANDA LE MD [facility] 04-07-2022 10:30-0400 Heart rate 98 /min AMANDA LE MD [facility] 04-07-2022 10:30-0400 Respiratory rate 18 /min AMANDA LE MD [facility] 04-07-2022 10:30-0400 Systolic Blood Pressure NBP 110 1 AMANDA LE MD [facility] 04-07-2022 09:05-0400 Body temperature 97.7 [degF] AMANDA LE MD [facility] 04-07-2022 09:05-0400 Diastolic Blood Pressure NBP 75 1 AMANDA LE MD [facility] 04-07-2022 09:05-0400 Reason For Taking VItal Signs AMANDA LE MD [facility] 04-07-2022 09:05-0400 Systolic Blood Pressure NBP 117 1 AMANDA LE MD [facility] 04-07-2022 08:40-0400 Body temperature 96.8 [degF] AMANDA LE MD [facility] 04-07-2022 08:40-0400 Heart rate 103 /min AMANDA LE MD [facility] 04-07-2022 08:40-0400 Mean blood pressure 76 mm[Hg] AMANDA LE MD [facility] 04-07-2022 08:28-0400 Heart rate 98 /min AMANDA LE MD [facility] 04-07-2022 08:28-0400 Mean blood pressure 69 mm[Hg] AMANDA LE MD [facility] 04-07-2022 08:14-0400 Heart rate 92 /min AMANDA LE MD [facility] 04-07-2022 08:14-0400 Mean blood pressure 59 mm[Hg] AMANDA LE MD [facility] 04-07-2022 08:00-0400 Body temperature 96.17 [degF] AMANDA LE MD [facility] 04-07-2022 07:55-0400 Body temperature 96.28 [degF] AMANDA LE MD [facility] 04-07-2022 07:50-0400 Body temperature 96.35 [degF] AMANDA LE MD [facility] 04-07-2022 05:43-0400 Body height 160 cm AMANDA LE MD [facility] 04-07-2022 05:43-0400 Body weight 57.5 kg AMANDA LE MD [facility] 04-07-2022 05:43-0400 Diastolic blood pressure 74 mm[Hg] AMANDA LE MD [facility] 04-07-2022 05:43-0400 Heart rate 80 /min AMANDA LE MD [facility] 04-07-2022 05:43-0400 Mean blood pressure 83 mm[Hg] AMANDA LE MD [facility] 04-07-2022 05:43-0400 Systolic blood pressure 102 mm[Hg] AMANDA LE MD [facility] Encounters Encounter Date Encounter Type Care Provider Facility Start: 04-03-2025 End: 04-03-2025 Patient encounter procedure Елена Valladares MD Work Phone: OB/Gynecology Comment on above: Labial cyst (Primary Dx); Post-operative state Start: 04-03-2025 End: 04-03-2025 ambulatory ЕЛЕНА VALLADARES Facility:[facility] Start: 03-22-2025 End: 03-22-2025 Telephone encounter Pavithra Messer MD Work Phone: [facility] Comment on above: Appointment (Set eliza t with new provider/May 2025) Start: 03-16-2025 End: 03-16-2025 Patient encounter procedure Елена Valladares MD Work Phone: OB/Gynecology Comment on above: Post-operative state (Primary Dx) Start: 03-16-2025 End: 03-16-2025 ambulatory ЕЛЕНА VALLADARES Facility:[facility] Start: 03-09-2025 End: 03-09-2025 ambulatory [facility] Facility:[facility] Start: 03-02-2025 End: 03-02-2025 Patient encounter procedure Елена Valladares MD Work Phone: OB/Gynecology Comment on above: Visit for pre-operat tiffanie examination (Primary Dx); Labial cyst Start: 03-02-2025 End: 03-02-2025 Preprocedural examination done Елена Valladares MD Work Phone: [facility] Work Phone: Start: 03-02-2025 End: 03-02-2025 ambulatory ЕЛЕНА VALLADARES Facility:[facility] Start: 02-17-2025 End: 04-19-2025 Follow-up encounter Елена Valladares MD Work Phone: OB/Gynecology Start: 02-17-2025 End: 02-20-2025 Telephone encounter Елена Valladares MD Work Phone: OB/Gynecology Comment on above: Results Start: 02-09-2025 End: 02-09-2025 ambulatory ЕЛЕНА VALLADARES Facility:[facility] Start: 01-02-2025 End: 01-02-2025 Telephone encounter Sly Cam MD Work Phone: [facility] ([facility]) Comment on above: No Show (No Show #1) Start: 12-14-2024 End: 12-14-2024 Office outpatient visit 15 minutes Baljit Harvey MD Work Phone: [facility] ([facility]) Comment on above: MELISSA (generalized anx iety disorder) (Primary Dx); Moderate episode of recurrent major depressive disorder (HCC) Start: 12-14-2024 End: 12-14-2024 ambulatory JOSE ALEJANDRO HE Facility:[facility] Start: 12-14-2024 End: 12-14-2024 Emergency department patient visit Waldo Good Facility:[facility] Start: 12-07-2024 End: 02-06-2025 Follow-up encounter Juancarlos Chand MD Work Phone: [facility] ([facility]) Start: 12-03-2024 End: 12-03-2024 Emergency department patient visit Catalino Keller Facility:[facility] Start: 12-01-2024 End: 12-01-2024 ambulatory JUANCARLOS CHAND Facility:[facility] Start: 12-01-2024 End: 12-01-2024 Telephone encounter Sly Cam MD Work Phone: [facility] ([facility]) Comment on above: Referral Information (Gastroenterology) Start: 12-01-2024 End: 12-01-2024 ambulatory SLY CAM Facility:[facility] Start: 12-01-2024 End: 12-01-2024 Office outpatient visit 15 minutes Sly Cam MD Work Phone: [facility] ([facility]) Comment on above: Stomach pain (Primar y Dx); Special screening examination for viral disease Start: 11-07-2024 End: 11-07-2024 ambulatory ABHAY BONE Facility:[facility] Start: 11-07-2024 End: 11-07-2024 Patient encounter procedure Abhay Bone ENVIRONMENTAL HEALTH SANITARIAN.CNM Work Phone: OB/Gynecology Comment on above: Screen for STD (sexu ally transmitted disease) (Primary Dx); Vaginal discharge; Acute vaginitis; Bartholin cyst Start: 11-02-2024 End: 11-02-2024 Orders Only Kelley Cheema DO Work Phone: [facility] ([facility]) Comment on above: At risk for obstruct tiffanie sleep apnea (Primary Dx) Start: 11-02-2024 End: 11-02-2024 Emergency department patient visit Corby Gastelum Facility:[facility] Start: 10-31-2024 End: 10-31-2024 Telephone encounter Med Taylor [facility] CARDIA C TESTING Start: 10-17-2024 End: 10-18-2024 ambulatory MELISSA-ALI LOTFIAN Facility:[facility] Start: 10-13-2024 ambulatory MELISSA-ALI LOTFIAN Faci lity:[facility] Start: 10-13-2024 End: 10-13-2024 Subsequent hospital visit by physician Ekg/Holter/Event Monitor [facility] CARDIAC TESTING Comment on above: Palpitations [R00.2] Start: 09-29-2024 End: 10-21-2024 [facility] Work Phone: Neurology Start: 09-27-2024 End: 09-27-2024 ambulatory MELISSA-ALI LOTFIAN Facility:[facility] Start: 09-27-2024 End: 09-27-2024 Patient encounter procedure Kelley Cheema DO Work Phone: [facility] ([facility]) Comment on above: Palpitations (Primar y Dx); Irritable bowel syndrome without diarrhea; At risk for obstructive sleep apnea Start: 09-27-2024 End: 09-27-2024 ambulatory KELLEY AZALIAJASON Facility:[facility] Start: 09-26-2024 End: 09-26-2024 Emergency department patient visit Edgar Ross Facility:[facility] Start: 08-31-2024 End: 08-31-2024 Emergency department patient visit Geovanny Cruz Facility:[facility] Start: 07-06-2024 End: 07-06-2024 Emergency department patient visit Waldo Good Facility:[facility] Start: 06-21-2024 End: 06-21-2024 ambulatory MELISSA BIRCH Facility:[facility] Start: 06-21-2024 End: 06-21-2024 Patient encounter procedure Melissa Depewracquel KAUR.RELIEF DRILLER Work Phone: OB/Gynecology Comment on above: Labial abscess (Prim david Dx); Dysuria Start: 04-28-2024 End: 04-28-2024 Emergency department patient visit Waldo Good Facility:[facility] Start: 04-20-2024 [facility] Start: 04-03-2024 End: 04-03-2024 Emergency department patient visit Kristopher Bonilla Facility:[facility] Start: 04-03-2024 End: 04-03-2024 Emergency department patient visit MAHESH Pleitez Other Phone: [facility] Work Phone (unformatted): [phone] Start: 12-02-2023 Telephone encounter Pavithra junior MD Work Phone: [facility] Start: 12-01-2023 End: 12-01-2023 [facility] Pavithra Messer MD Work Phone: [facility] Comment on above: Major depressive dis order, single episode, mild with peripartum onset (HCC) (Primary Dx) Start: 09-28-2023 End: 09-28-2023 Patient encounter procedure Claudia Stone APRN.ALLAN Work Phone: OB/Gynecology Comment on above: care and examination (Primary Dx) Start: 09-14-2023 End: 09-15-2023 Patient encounter procedure Baljit Harvey MD Work Phone: [facility] ([facility]) Comment on above: Episode of recurrent major depressive disorder, unspecified depression episode severity (HCC) (Primary Dx); Tachycardia; Tiredness; Anxiety; Vapes nicotine containing substance; History of self mutilation; Anemia complicating , third trimester Start: 08-31-2023 End: 08-31-2023 Patient encounter procedure Claudia Stone APRN.CNM Work Phone: OB/Gynecology Comment on above: Encounter for initia l prescription of contraceptive pills (Primary Dx); care and examination; Previous section; Encounter for screening for maternal depression Start: 08-19-2023 ambulatory Katya Latif RN Interna l Medicine [facility] Comment on above: Blood management Start: 08-15-2023 ambulatory Camden Guevara Work Phone: OB/Gynecology Comment on above: Ob Delivery Note Start: 08-15-2023 End: 08-17-2023 Evaluation and management of inpatient [facility] [place] Work Phone: Start: 08-12-2023 End: 08-12-2023 Patient encounter procedure Abhay Bone APRN.CNM Work Phone: OB/Gynecology Comment on above: 38 weeks gestation o f (Primary Dx); Encounter for supervision of normal first in third trimester; GBS bacteriuria; Vapes nicotine containing substance; Marijuana use during Start: 08-11-2023 ambulatory [facility] Comment on above: Population Health Na vigation Outreach (Peds/OB) Start: 08-07-2023 Telephone encounter Abhay aranda APRN.CNM Work Phone: OB/Gynecology Comment on above: Results Start: 08-05-2023 End: 08-05-2023 Patient encounter procedure Abhay Bone APRN.CNM Work Phone: OB/Gynecology Comment on above: Encounter for superv ision of normal first in third trimester (Primary Dx); 37 weeks gestation of ; Elevated blood pressure reading without diagnosis of hypertension Start: 07-29-2023 End: 07-29-2023 Patient encounter procedure Solar Applications Development Engineer [facility] Work Phone: OB/Gynecology Comment on above: Pyelectasis of fetus on ultrasound (Primary Dx); with care elsewhere, antepartum; Marijuana use during ; Vapes nicotine containing substance; abnormality in antepartum , single or unspecified fetus; 36 weeks gestation of Start: 07-24-2023 End: 07-25-2023 Emergency department patient visit [facility] Work Phone: Start: 07-20-2023 End: 07-20-2023 ambulatory [facility] Work Phone: Start: 07-20-2023 End: 07-20-2023 Patient encounter procedure [facility] Work Phone: Start: 07-17-2023 Telephone encounter Director Athletic RN Obstetrics/Gynecology Comment on above: PRAF Start: 07-13-2023 End: 07-13-2023 Patient encounter procedure Abhay Bone CNM Work Phone: OB/Gynecology Comment on above: Encounter for superv ision of normal first in third trimester (Primary Dx); 34 weeks gestation of ; Hemorrhoids, unspecified hemorrhoid type; Cyst of Bartholin's gland Start: 07-03-2023 End: 07-03-2023 Emergency department patient visit [facility] Work Phone: Start: 07-03-2023 End: 07-03-2023 ambulatory [facility] Work Phone: Start: 07-03-2023 End: 07-03-2023 Patient encounter procedure [facility] Work Phone: Start: 06-27-2023 ambulatory Claudia Marie RN [facility] Comment on above: Information Start: 06-26-2023 Transcribe Orders Cheko Montoya MD Work Phone: [facility] Maternal Medicine Comment on above: abnormality in antepartum , single or unspecified fetus (Primary Dx); with care elsewhere, antepartum; Marijuana use during ; Vapes nicotine containing substance Patient Update Results Start: 06-25-2023 Telephone encounter Abhay aranda ENVIRONMENTAL HEALTH SANITARIAN.CNM Work Phone: OB/Gynecology Comment on above: Orders Start: 06-23-2023 ambulatory Abhay collado ENVIRONMENTAL HEALTH SANITARIAN.CNM Work Phone: OB/Gynecology Comment on above: Question regarding C BC + DIFF Start: 06-15-2023 Telephone encounter Tracie Wilkerson RN [facility]aternal [facility] Comment on above: Appointment Start: 06-10-2023 End: 06-10-2023 Patient encounter procedure Abhay Bone ENVIRONMENTAL HEALTH SANITARIAN.CNM Work Phone: OB/Gynecology Comment on above: with prena yael care elsewhere, antepartum (Primary Dx); 29 weeks gestation of ; Episode of recurrent major depressive disorder, unspecified depression episode severity (HCC); Anxiety; History of self mutilation; Marijuana use during ; Vapes nicotine containing substance; Suspected anomaly, antepartum, single or unspecified fetus; Pilonidal abscess Start: 06-08-2023 Telephone encounter Abhay aranda ENVIRONMENTAL HEALTH SANITARIAN.CNM Work Phone: OB/Gynecology Comment on above: transfer of care Start: 05-27-2023 ambulatory MISSAEL DUONG [facility] Start: 05-14-2023 End: 05-14-2023 Emergency department patient visit Rory Pappas Facility:[facility] Start: 05-14-2023 End: 05-14-2023 Emergency department patient visit OCCUPATIONAL THERAPY ASSIST Amanda Pleitez Other Phone: [facility] Start: 05-11-2023 End: 05-11-2023 Emergency department patient visit OCCUPATIONAL THERAPY ASSIST Amanda Pleitez Other Phone: [facility] Start: 03-21-2023 End: 03-21-2023 ambulatory PAUL COLLINS Facility:[facility] Start: 02-18-2023 ambulatory 837 NO FAMILY PHYSICIAN Facility:[facility] Start: 02-09-2023 End: 02-09-2023 Emergency department patient visit [facility] Start: 02-04-2023 End: 02-04-2023 Emergency department patient visit [facility] Start: 11-27-2022 End: 11-27-2022 Emergency department patient visit OCCUPATIONAL THERAPY ASSIST Amanda Pleitez Other Phone: [facility] Start: 11-25-2022 End: 11-25-2022 Emergency department patient visit OCCUPATIONAL THERAPY ASSIST Amanda Pleitez Other Phone: [facility] Start: 09-07-2022 End: 09-07-2022 Emergency department patient visit [facility] Start: 07-24-2022 End: 07-24-2022 Emergency department patient visit [facility] Start: 04-23-2022 End: 04-24-2022 ambulatory AMANDA LE MD Facility:[facility] Start: 04-23-2022 End: 04-24-2022 Encounter for general adult medical examination without abnormal findings AMANDA LE MD Facility:[facility] Start: 04-23-2022 End: 04-23-2022 Patient encounter procedure AMANDA LE MD [facility] Start: 04-07-2022 End: 04-07-2022 ambulatory AMANDA LE MD Facility:[facility] Start: 04-07-2022 End: 04-07-2022 SAME DAY STAY AMANDA LE MD [facility] Start: 03-10-2022 End: 03-15-2022 Encounter for preprocedural laboratory examination AMANDA LE MD Facility:[facility] Start: 03-10-2022 End: 03-15-2022 ambulatory AMANDA LE MD Facility:[facility] Start: 03-05-2022 End: 03-06-2022 ambulatory AMANDA LE MD Facility:[facility] Start: 03-05-2022 End: 03-06-2022 Encounter for other specified special examinations AMANDA LE MD Facility:[facility] Start: 03-05-2022 End: 03-05-2022 Patient encounter procedure AMANDA LE MD [facility] Procedures Date Procedure Procedure Detail Performing Clinician Start: 06-21-2024 Urnls dip stick/tabl et rgnt auto w/o microscopy Melissa Depew ENVIRONMENTAL HEALTH SANITARIAN.RELIEF DRILLER Work Phone: Start: 04-03-2024 Blood count hemoglobin ENVIRONMENTAL HEALTH SANITARIAN.RELIEF DRILLER [facility] Comment on above: Performed By: #### C BCAD #### [place] [address] Start: 08-15-2023 Bacterial nucleic ac id assay Start: 08-15-2023 Chlamydia trachomati s (PCR) Start: 08-12-2023 URINE OB DIP B/O Courtn ey Plotkyle ENVIRONMENTAL HEALTH SANITARIAN.CNM Work Phone: Start: 08-05-2023 URINE OB DIP B/O Courtn ey Plotkyle ENVIRONMENTAL HEALTH SANITARIAN.CNM Work Phone: Start: 07-29-2023 Us preg uterus after 1st trimest 10/19 gestation Abhay Bone ENVIRONMENTAL HEALTH SANITARIAN.CNM Work Phone: Start: 07-20-2023 SARS-CoV-2 & FLU Ant igen (Rapid) Start: 07-20-2023 Viral antigen assay Start: 07-13-2023 URINE OB DIP B/O Courtn mar Plotkyle ENVIRONMENTAL HEALTH SANITARIAN.CNM Work Phone: Start: 07-03-2023 Urine culture Start: 06-10-2023 URINE OB DIP B/O Courtn ey Plotkyle ENVIRONMENTAL HEALTH SANITARIAN.CNM Work Phone: Start: 04-07-2022 Examination under anesthesia (qualifier value) AMANDA LE MD Comment on above: PARTIAL LEFT VULVECT LUKE, LEFT LABIOPLASTY Appendectomy AMANDA Guevara H/O: section Status pos t primary low transverse section H/O: section Previous c esarean section Claudia Chase LAUREANO Work Phone: Urine culture Plan of Treatment Date Care Activity Detail Author Start: 02-09-2026 Screening for malign ant neoplasm of cervix Cervical Cancer Screening [facility] Start: 01-22-2026 End: 01-22-2026 Patient encounter procedure 01/22/2026 2:20 PM EDT Office Visit OB/Gynecology [address] [place] [id number] Елена Valladares MD [address] [place], [place] [phone] repeat annual OB/Gynecology Comment on above: repeat annual Start: 11-07-2025 GC (Gonorrhea) Scree lópez () GC (Gonorrhea) Screening () [facility] Start: 11-07-2025 Screening for Chlamy ashish trachomatis Chlamydia Screening () [facility] Start: 06-19-2025 Influenza vaccination Influenz a Vaccine (Season Ended) [facility] Start: 05-25-2025 End: 05-25-2025 Patient encounter procedure 05/25/2025 9:00 AM EDT [facility] [address] [place], [place] [phone] William Yanez DO [address] [place], [place] [phone] New patient - Transfer of care from Dr Messer [facility] Comment on above: New patient - Transf er of care from Dr Messer Start: 04-03-2025 End: 04-03-2025 Patient encounter procedure 04/03/2025 2:50 PM EDT Office Visit OB/Gynecology [address] [place] [phone] Елена Valladares MD [address] [place], [place] [phone] post op OB/Gynecology Comment on above: post op Start: 03-30-2025 End: 03-30-2025 Patient encounter procedure 03/30/2025 9:00 AM EDT Office Visit [facility] [address] [facility] [place] [address] Claudia Mayo PA-C 1 [facility] [address] [place] [address] new pt- stomach pain [facility] Comment on above: new pt- stomach pain Start: 03-16-2025 End: 03-16-2025 Patient encounter procedure 03/16/2025 3:40 PM EDT Office Visit OB/Gynecology [address] [place] [address] Елена Valladares MD [address] [place] [address] 1 week post-op OB/Gynecology Comment on above: 1 week post-op Start: 03-02-2025 End: 03-02-2025 Patient encounter procedure 03/02/2025 10:50 AM EDT Office Visit OB/Gynecology [address] [place] [address] Елена Valladares MD [address] [place] [address] surgery 03/09 OB/Gynecology Comment on above: surgery 03/09 Start: 02-22-2025 End: 02-22-2025 Patient encounter procedure 02/22/2025 4:00 PM EDT Office Visit OB/Gynecology [address] [place] [address] Uma Farley, ENVIRONMENTAL HEALTH SANITARIAN.RELIEF DRILLER [address] [place] [address] uti OB/Gynecology Comment on above: uti Start: 01-02-2025 End: 01-02-2025 Patient encounter procedure 01/02/2025 9:00 AM EDT Office Visit [facility] [address] [facility] [place] [address] Sly Pride MD [address] [place] [address] Follow up [facility] ([facility]) Comment on above: Follow up Start: 12-01-2024 End: 03-02-2025 GLIADIN (DEAMINATED) [facility] Comment on above: Expected: 12/01/2024 , Expires: 03/02/2025 Start: 12-01-2024 End: 03-02-2025 Tissue transglutaminase Ab panel - Serum [facility] Work Phone: Comment on above: Expected: 12/01/2024 , Expires: 03/02/2025 Start: 11-07-2024 End: 11-07-2024 Patient encounter procedure 11/07/2024 9:30 AM EST Office Visit OB/Gynecology [address] [place] [address] Abhay Bone APRN.[facility] [address] [place] [address] Bartholin cyst OB/Gynecology Comment on above: Bartholin cyst Start: 10-18-2024 End: 10-18-2024 Patient encounter procedure 10/18/2024 10:00 AM EST Office Visit Neurology [address] [place] [address] At risk for obstructive sleep apnea [Z91.89] Neurology Comment on above: At risk for obstruct tiffanie sleep apnea [Z91.89] Start: 10-13-2024 End: 10-13-2024 Patient encounter procedure 10/13/2024 8:00 AM EST [facility]ointment [facility] [address] [place] [address] Palpitations [R00.2] [facility] Comment on above: Palpitations [R00.2] Start: 10-05-2024 End: 10-05-2024 Patient encounter procedure 10/05/2024 10:00 AM EST Office Visit Neurology [address] [address] LVM to confirm 09-30-24 Neurology Comment on above: LVM to confirm 09-30 Start: 09-29-2024 End: 09-29-2024 Patient encounter procedure 09/29/2024 3:30 PM EST Office Visit OB/Gynecology [address] [place] [address] Claudia Stone APRN.CNM [address] [place] [address] ANNUAL OB/Gynecology Comment on above: ANNUAL Start: 06-19-2024 Covid-19 Vaccine ( season) Covid-19 Vaccine ( season) [facility] Start: 06-19-2024 Covid-19 Vaccine () Covid-19 Vaccine () [facility] Start: 06-19-2024 Influenza vaccination Influenza Vacc ine (#1) [facility] Start: 2024 Screening for malign ant neoplasm of cervix Cervical Cancer Screening [facility] Start: 08-17-2023 Patient discharge [facility] Start: 08-16-2023 Application of abdom inal corset [facility] Start: 08-15-2023 Administration of medication [facility] Start: 08-15-2023 Ambulation therapy management [facility] Start: 08-15-2023 Application of device [facility] Start: 08-15-2023 Application of intermittent pneumatic compression device [facility] Start: 08-15-2023 Assessment of risk o f venous thromboembolism [facility] Start: 08-15-2023 Catheterization of vein [facility] Start: 08-15-2023 Deep breathing and coughing exercises [facility] Start: 08-15-2023 Exercises [facility] Start: 08-15-2023 Measuring intake and output [facility] Start: 08-15-2023 Notification of physician [facility] Start: 08-15-2023 Procedure discontinued [facility] Start: 08-15-2023 Provision of activit y privileges [facility] Start: 08-15-2023 Vital signs measurements [facility] Start: 08-15-2023 Wound care [facility] Start: 08-15-2023 [facility] Start: 08-15-2023 Application of abdom inal corset [facility] Start: 08-15-2023 Admission procedure [facility] Start: 08-15-2023 [facility] Start: 08-15-2023 Nonstress test [facility] Start: 08-15-2023 Vital signs measurements [facility] Start: 08-15-2023 [facility] Start: 08-15-2023 Consultation [facility] Start: 08-15-2023 [facility] Start: 07-25-2023 End: 07-25-2023 [facility] Start: 07-24-2023 Incision & drainage pilonidal cyst simple DRAINAGE OF PILONIDAL CYST [facility] Start: 07-20-2023 Nonstress test [facility] Start: 07-20-2023 End: 07-20-2023 [facility] Start: 07-20-2023 Obstetric monitoring [facility] Start: 07-20-2023 Vital signs measurements [facility] Start: 07-20-2023 Patient discharge [facility] Start: 07-03-2023 Nonstress test [facility] Start: 07-03-2023 Obstetric monitoring [facility] Start: 07-03-2023 Vital signs measurements [facility] Start: 07-03-2023 End: 07-03-2023 [facility] Start: 07-03-2023 Bacteria identified in Urine by Culture Urine Culture [facility] Start: 07-03-2023 End: 06-25-2024 OBSTETRIC ULTRASOUND [facility] OBSTETRIC ULTRASOUND [facility] Anc Imaging Routine with care elsewhere, antepartum Suspected anomaly, antepartum, single or unspecified fetus Expected: 07/03/2023, Expires: 06/25/2024 [facility] Work Phone: Comment on above: Expected: 07/03/2023 , Expires: 06/25/2024 Start: 07-03-2023 Patient discharge [facility] Start: 07-03-2023 [facility] Start: 07-02-2023 End: 06-26-2024 OBSTETRIC ULTRASOUND [facility] OBSTETRIC ULTRASOUND [facility] Anc Imaging Routine with care elsewhere, antepartum Marijuana use during Vapes nicotine containing substance abnormality in antepartum , single or unspecified fetus Expected: 07/02/2023, Expires: 06/26/2024 [facility] Work Phone: Comment on above: Expected: 07/02/2023 , Expires: 06/26/2024 Start: 06-19-2023 Covid-19 Vaccine () Covid-19 Vaccine () [facility] Start: 06-19-2023 Influenza vaccination [facility] Start: 06-10-2023 End: 08-10-2023 CBC W Auto Differential panel - Blood CBC + DIFF Lab Routine with care elsewhere, antepartum Expected: 06/10/2023, Expires: 08/10/2023 [facility] Work Phone: Comment on above: Expected: 06/10/2023 , Expires: 08/10/2023 Start: 06-10-2023 End: 08-10-2023 GEST GLUC SCREEN, 1-HR, 50 GM, NON-FASTING GEST GLUC SCREEN, 1-HR, 50 GM, NON-FASTING Lab Routine with care elsewhere, antepartum Expected: 06/10/2023, Expires: 08/10/2023 [facility] Work Phone: Comment on above: Expected: 06/10/2023 , Expires: 08/10/2023 Start: 06-10-2023 End: 06-10-2024 OBSTETRIC ULTRASOUND [facility] OBSTETRIC ULTRASOUND [facility] Anc Imaging Routine with care elsewhere, antepartum 29 weeks gestation of Expected: 06/10/2023, Expires: 06/10/2024 [facility] Work Phone: Comment on above: Expected: 06/10/2023 , Expires: 06/10/2024 Start: 06-10-2023 End: 08-10-2023 SYPHILIS TOTAL W/REFLEX SYPHILIS TOTAL W/REFLEX Lab Routine with care elsewhere, antepartum Expected: 06/10/2023, Expires: 08/10/2023 [facility] Work Phone: Comment on above: Expected: 06/10/2023 , Expires: 08/10/2023 Start: 06-10-2023 End: 08-10-2023 TYPE + SCREEN TYPE + SCREEN Blood Bank Routine with care elsewhere, antepartum Expected: 06/10/2023, Expires: 08/10/2023 [facility] Work Phone: Comment on above: Expected: 06/10/2023 , Expires: 08/10/2023 Start: 02-04-2023 [facility] Start: 2022 Hepatitis B Vaccine (1 of 3 - 19+ 3-dose series) Hepatitis B Vaccine (1 of 3 - 19+ 3-dose series) [facility] Start: 2022 Urine microalbumin profile [facility] Start: 04-19-2021 COVID-19 VACCINE (3 - Pfizer series) COVID-19 VACCINE (3 - Pfizer series) [facility] Start: 2021 CHLAMYDIA SCREENING (18-24) CHLAMYDIA SCREENING (18-24) [facility] Start: 2021 GC (GONORRHEA) SCREE LÓPEZ (18-24) GC (GONORRHEA) SCREENING (18-24) [facility] Start: 2021 HEPATITIS C SCREENING HEPATITIS C [facility] Start: 2021 Hepatitis C screening Hepatitis C [facility] Start: 2021 HIV SCREENING HIV SCREENING [facility] Start: 2021 HIV screening HIV Screening [facility] Start: 2021 Screening for Chlamy ashish trachomatis Chlamydia Screening (18-24) [facility] Start: 2019 Meningococcal B Vacc ine (1 of 2 - Standard) Meningococcal B Vaccine (1 of 2 - Standard) [facility] Start: 2019 Meningococcal B Vacc ine: Consider Based On Risk (1 of 2 - Patient Seeks Protection) Meningococcal B Vaccine: Consider Based On Risk (1 of 2 - Patient Seeks Protection) [facility] Start: 2017 PEDS TO ADULT TRANSI TION ANNUAL ASSESSMENT PEDS TO ADULT TRANSITION ANNUAL ASSESSMENT [facility] Start: 05-22-2015 HPV Vaccine (2 - 2-d ose series) HPV Vaccine (2 - 2-dose series) [facility] Start: 2015 PEDS TO ADULT TRANSI TION INITIAL DISCUSSION PEDS TO ADULT TRANSITION INITIAL DISCUSSION [facility] Start: 2012 HPV VACCINE (1 - 2-d ose series) HPV VACCINE (1 - 2-dose series) [facility] Start: 2003 HEPATITIS B (1 of 3 - 3-dose series) HEPATITIS B (1 of 3 - 3-dose series) [facility] Start: 2003 Hepatitis B Vaccine (1 of 3 - 3-dose series) Hepatitis B Vaccine (1 of 3 - 3-dose series) [facility] [id number] vacc 2/3 dose sched im use HPV VACCINE, 9-VALENT (GARDASIL 9) Immunization/Injection Routine Ordered: 02/17/2025 [facility] Work Phone: Comment on above: Ordered: 02/17/2025 Bacteria identified in Urine by Culture Urine Culture [facility] Bacteria identified in Urine by Culture URINE CULTURE Microbiology Routine Dysuria 06/21/2024 10:28 AM EDT [facility] Work Phone: BACTERIAL VAGINOSIS NAAT BACTERI AL VAGINOSIS NAAT Lab Routine Screen for STD (sexually transmitted disease) 11/07/2024 10:08 AM EST [facility] Calprotectin [Mass/m ass] in Stool CALPROTECTIN,FECAL Lab Routine Stomach pain Ordered: 12/05/2024 [facility] Comment on above: Ordered: 12/05/2024 RACHEL/TRICHOMONAS NAAT RACHEL /TRICHOMONAS NAAT Lab Routine Screen for STD (sexually transmitted disease) 11/07/2024 10:08 AM EST [facility] Chlamydia trachomatis+Neisseria gonorrhoeae DNA [Presence] in Unspecified specimen by KATHLEEN with probe detection GONORRHEA/CHLAMYDIA NAAT Lab Routine Screen for STD (sexually transmitted disease) 11/07/2024 10:08 AM EST [facility] Work Phone: End: 09-14-2024 ECG COMPLETE ECG COMPLETE ECG Routine Tachycardia 1 Occurrences starting 09/14/2023 until 09/14/2024 [facility] Work Phone: Comment on above: 1 Occurrences starti ng 09/14/2023 until 09/14/2024 Helicobacter pylori Ag [Presence] in Stool by Immunoassay HELICOBACTER PYLORI ANTIGEN BY EIA, STOOL Microbiology Routine Irritable bowel syndrome without diarrhea Ordered: 09/27/2024 [facility] Comment on above: Ordered: 09/27/2024 End: 09-27-2025 HOLTER MONITOR 72 HOUR HOLTER MONITOR 72 HOUR Cardiology Routine Palpitations 1 Occurrences starting 09/27/2024 until 09/27/2025 [facility] Comment on above: 1 Occurrences starti ng 09/27/2024 until 09/27/2025 End: 10-13-2024 HOLTER MONITOR 72 HOUR HOLTER MONITOR 72 HOUR Cardiology Routine Palpitations 1 Occurrences starting 10/13/2024 until 10/13/2024 [facility] Work Phone: Comment on above: 1 Occurrences starti ng 10/13/2024 until 10/13/2024 End: 09-27-2025 HOME SLEEP APNEA TEST (HSAT) HOME SLEEP APNEA TEST (HSAT) Procedures Routine At risk for obstructive sleep apnea 1 Occurrences starting 09/27/2024 until 09/27/2025 [facility] Work Phone: Comment on above: 1 Occurrences starti ng 09/27/2024 until 09/27/2025 [facility] Work Phone: [facility] Work Phone: [facility] Immunizations Immunization Date Immunization Notes Care Provider Teresita see 02-22-2021 COVID-19, mRNA, LNP- S, PF, 30 mcg/0.3 mL dose [facility] 01-25-2021 COVID-19, mRNA, LNP- S, PF, 30 mcg[facility]0.3 [facility] 11-22[facility]2014 human papilloma viru s vaccine, quadrivalent Sly Yemi Cam MD Work Phone: [facility] Payers Date Payer Category Payer Self-pay 2022 Unknown [id number] 2020 Medicaid [id number] 2020 Unknown [id number] 2008 Unknown 2003 Unknown [id number] 2.16.8 [id number] 2003 Unknown [id number] 2.16.8 [id number] 2003 Unknown [id number] 2.16.8 [id number] 2003 Unknown [id number] 2.16.8 40.1.079810.3.579.2.627 2003 Unknown [id number] 2.16.8 40.1.020809.3.579.2.627 2003 Unknown [id number] 2.16.8 40.1.304451.3.579.2.627 2003 Unknown [id number] 2.16.8 40.1.373966.3.579.2.627 2003 Unknown [id number] 2.16.8 40.1.687737.3.579.2.159 2003 Unknown [id number] 2.16.8 40.1.954730.3.579.2.159 2003 Unknown [id number] 2.16. 840.1.581866.3.579.2.204 Unknown [id number] 2.16. 840.1.476435.3.579.2.579 Unknown [id number] 2.16. 840.1.611341.3.579.2.579 Unknown [id number] 2.16. 840.1.208377.3.579.2.579 Unknown [id number] 2.16.8 40.1.691851.3.579.2.462 Unknown [id number] 2.16.8 40.1.783883.3.579.2.462 Unknown [id number] 2.16.8 40.1.267000.3.579.2.462 Unknown [id number] 2.16.8 40.1.792183.3.579.2.462 Unknown [id number] 2.16.8 40.1.770877.3.579.2.462 Unknown [id number] 2.16.8 40.1.888010.3.579.2.462 Unknown [id number] 2.16.8 40.1.110826.3.579.2.462 Unknown [id number] 2.16.8 40.1.239084.3.579.2.462 Social History Date Type Detail Facility Start: 02-18-2022 Tobacco smoking status Former smokeless tobacco user, quit more than 30 days ago [facility] Comment on above: Quit 05/2021 Start: 2003 Sex Assigned At Female A [facility] Start: 07-24-2022 End: 04-03-2024 Tobacco smoking status VAIS Unknown if ever smoked [employer] Start: 07-24-2022 DENIES [facility] Work Phone: Start: 06-10-2023 End: 12-15-2023 Gender Identity unknown [facility] Start: 09-07-2022 N [facility] Work Phone: Start: 11-27-2022 Y [facility] Work Phone: [facility] Start: 06-10-2023 End: 12-15-2023 History of Social function [facility] The thought of harming myself has occurred to me Yes, quite often [facility] Start: 2003 Sex Assigned At Not on file C [facility] Start: 06-10-2023 End: 09-27-2024 Tobacco smoking status NHIS Never smoked tobacco [facility] Start: 06-10-2023 End: 09-27-2024 Tobacco use and exposure Smokeless tobacco non-user [facility] Start: 06-10-2023 End: 02-09-2025 Alcohol intake Ex-drinker (finding) [facility] The thought of harming myself has occurred to me Never [facility] Start: 04-03-2024 OCCASIONALLY [facility] Work Phone: Start: 04-03-2024 NONE [facility] Work Phone: Start: 04-03-2024 DAILY [facility] Work Phone: Start: 09-27-2024 Tobacco [facility] Goals Date Patient Goal Desired Activity /State Functional Status Date Assessment Result Facility 08-15-2023 Functional status Activity Ability Indepe ndent [facility] Work Phone: 04-07-2022 Functional Status Awake, Up ad jose f, Up to bathroom [facility] 04-07-2022 Functional Status ice on [facility] 04-07-2022 Functional Status Maintained [facility] Mental Status Date Assessment Result Facility 08-15-2023 Cognitive function Anxious [facility] Work Phone: 04-07-2022 Mental Status Orientation Oriented x [facility] 04-07-2022 Mental Status [facility] Clinical Notes 04-07-2022 to 04-03-2025 Елена Valladares MD - 04/03/2025 2:17 PM EDTTelephone Encounter - Lesa Juarze - 03/22/2025 10:07 AM EDTTelephone Encounter - Lesa Juarez - 03/22/2025 10:07 AM EDTPatient Instructions Note Date & Type Note Facility 04-03-2025 Note HNO ID: [id number] Author: ЕЛЕНА VALLADARES MD Service: ? Author Type: Physician Type: Progress Notes Filed: 04/03/2025 15:21 Note Text: Test Bore Helper offered: Patient declines. DATE OF SERVICE: 04/03/2025 PROBLEM: Tianna Louis presents for postop visit. SURGERY AND DATE: Labial Cyst Excision 03/09/2025 PATHOLOGY: benign SUBJECTIVE/INTERVAL HISTORY: Tianna Louis is doing well. Denies pain, fevers, chills, vomiting, difficulty with urination or bowel movements. She feels improved overall since surgery, and feels her pain is better. Recently went to a concert and did well without pain. She is happy with results of surgery. SENSITIVE EXAM: The sensitive examination was discussed with the Patient or Patient's Authorized Search Engine Optimization Analyst. As applicable, any other physician, advance practice provider, medical student, or other health professional student that will be observing or involved in the sensitive examination for educational or training purposes was discussed with the Patient or Authorized Search Engine Optimization Analyst. The Patient or Authorized Search Engine Optimization Analyst has agreed to proceed with the sensitive examination. (Sensitive examination includes inspection and/or palpation of the breasts, pelvis, prostate and anorectal regions). OBJECTIVE: VITALS: BP 116/70 Wt 50.5 kg (111 lb 6.4 oz) LMP 03/01/2025 (Approximate) BMI 19.73 kg/m? GENERAL: Pleasant, comfortable PELVIC: Incision site healing well without signs of infection. Sutures remain present. No erythema, swelling, or drainage ASSESSMENT: post op doing well PLAN: Discussed surgery and pathology with patient Healing well Cont pelvic rest for a total of 6 weeks Елена Valladares DO I spent 10 minutes in the visit, with more than 50% of the total [id number] time of the visit in counseling / coordination of care. [facility] 04-03-2025 History of Presen t illness Narrative Test Bore Helper offered: Patient declines. DATE OF SERVICE: 04/03/2025 PROBLEM: Tianna Louis presents for postop visit. SURGERY & DATE: Labial Cyst Excision 03/09/2025 PATHOLOGY: benign SUBJECTIVE/INTERVAL HISTORY: Tianna Louis is doing well. Denies pain, fevers, chills, vomiting, difficulty with urination or bowel movements. She feels improved overall since surgery, and feels her pain is better. Recently went to a concert and did well without pain. She is happy with results of surgery. SENSITIVE EXAM: The sensitive examination was discussed with the Patient or Patient's Authorized Search Engine Optimization Analyst. As applicable, any other physician, advance practice provider, medical student, or other health professional student that will be observing or involved in the sensitive examination for educational or training purposes was discussed with the Patient or Authorized Search Engine Optimization Analyst. The Patient or Authorized Search Engine Optimization Analyst has agreed to proceed with the sensitive examination. (Sensitive examination includes inspection and/or palpation of the breasts, pelvis, prostate and anorectal regions). OBJECTIVE: VITALS: BP 116/70 Wt 50.5 kg (111 lb 6.4 oz) LMP 03/01/2025 (Approximate) BMI 19.73 kg/m GENERAL: Pleasant, comfortable PELVIC: Incision site healing well without signs of infection. Sutures remain present. No erythema, swelling, or drainage ASSESSMENT: post op doing well PLAN: Discussed surgery and pathology with patient Healing well Cont pelvic rest for a total of 6 weeks Елена Valladares, I spent 10 minutes in the visit, with more than 50% of the total [id number] time of the visit in counseling / coordination of care. documented in this encounter [facility] 03-22-2025 Telephone encounter Note Patient sent a [facility] message asking for appt with Dr Messer I first set appt 03/24/25 then I noticed she wants appt in April I called patient on 03/22/25 and spoke with her Explained I will set appt with new provider Appt will appear in [facility] if day or times does not work call back please Lesa Juarez March 22, 2025 10:08 AM [facility] 03-22-2025 Miscellaneous Notes Patient sent a [facility] message asking for appt with Dr Messer I first set appt 03/24/25 then I noticed she wants appt in April I called patient on 03/22/25 and spoke with her Explained I will set appt with new provider Appt will appear in [facility] if day or times does not work call back please Lesa Juarez March 22, 2025 10:08 AM documented in this encounter [facility] 03-16-2025 Note HNO ID: [id number] Author: ЕЛЕНА VALLADARES MD Service: ? Author Type: Physician Type: Progress Notes Filed: 03/17/2025 11:03 Note Text: Test Bore Helper offered: Patient declines. DATE OF SERVICE: 03/16/2025 PROBLEM: Tianna Louis presents for postop visit. SURGERY AND DATE: Vaginal Cyst Excision 03/09/2025 PATHOLOGY: in process. Cultures are negative SUBJECTIVE/INTERVAL HISTORY: Tianna Louis has discomfort and trouble sitting without pain. Pain improves with sitz baths and ice PRN. Has stinging pain and itching. Minimal bleeding. No fevers, chills, drainage. Eating ok. Using the stool softener daily with bowel movements since surgery. No difficulty with urination. SENSITIVE EXAM: The sensitive examination was discussed with the Patient or Patient's Authorized Search Engine Optimization Analyst. As applicable, any other physician, advance practice provider, medical student, or other health professional student that will be observing or involved in the sensitive examination for educational or training purposes was discussed with the Patient or Authorized Search Engine Optimization Analyst. The Patient or Authorized Search Engine Optimization Analyst has agreed to proceed with the sensitive examination. (Sensitive examination includes inspection and/or palpation of the breasts, pelvis, prostate and anorectal regions). OBJECTIVE: VITALS: BP 100/60 Wt 50.4 kg (111 lb 3.2 oz) LMP 03/01/2025 (Approximate) BMI 19.70 kg/m? HEENT: Normocephalic and atraumatic PELVIC: Minimal swelling of the left labia. Incision site well re approximated without erythema, bleeding, or drainage ASSESSMENT: post op doing well PLAN: Discussed surgery with patient. Healing well. Continue daily Sitz baths and ice packs PRN. RTO 2 weeks for follow up. Letter for work given. Елена Valladares DO [facility] 03-16-2025 History of Presen t illness Narrative Test Bore Helper offered: Patient declines. DATE OF SERVICE: 03/16/2025 PROBLEM: Tianna Louis presents for postop visit. SURGERY & DATE: Vaginal Cyst Excision 03/09/2025 PATHOLOGY: in process. Cultures are negative SUBJECTIVE/INTERVAL HISTORY: Tianna Louis has discomfort and trouble sitting without pain. Pain improves with sitz baths and ice PRN. Has stinging pain and itching. Minimal bleeding. No fevers, chills, drainage. Eating ok. Using the stool softener daily with bowel movements since surgery. No difficulty with urination. SENSITIVE EXAM: The sensitive examination was discussed with the Patient or Patient's Authorized Search Engine Optimization Analyst. As applicable, any other physician, advance practice provider, medical student, or other health professional student that will be observing or involved in the sensitive examination for educational or training purposes was discussed with the Patient or Authorized Search Engine Optimization Analyst. The Patient or Authorized Search Engine Optimization Analyst has agreed to proceed with the sensitive examination. (Sensitive examination includes inspection and/or palpation of the breasts, pelvis, prostate and anorectal regions). OBJECTIVE: VITALS: BP 100/60 Wt 50.4 kg (111 lb 3.2 oz) LMP 03/01/2025 (Approximate) BMI 19.70 kg/m HEENT: Normocephalic and atraumatic PELVIC: Minimal swelling of the left labia. Incision site well re approximated without erythema, bleeding, or drainage ASSESSMENT: post op doing well PLAN: Discussed surgery with patient. Healing well. Continue daily Sitz baths and ice packs PRN. RTO 2 weeks for follow up. Letter for work given. Елена Valladares DO documented in this encounter [facility] 03-02-2025 History and physical note DATE OF SERVICE: March 02, 2025 PROBLEM: labial cyst, pre op PAST SURGICAL HISTORY: PAST SURGICAL HISTORY Procedure Laterality Date APPENDECTOMY patient was in 6th grade PAST SURGICAL HISTORY OF Left 04/07/2022 Benign Cyst Removal from Labia PAST MEDICAL HISTORY: PAST MEDICAL HISTORY Diagnosis Date Anemia complicating , third trimester (HCC) 08/05/2023 Depression with anxiety Pilonidal abscess 06/10/2023 06/10/23- was treated during . She was told that she may need to follow with general surgery. Abhay Bone APRN.CNM Pilonidal cyst 2022 SUBJECTIVE: Recently the cyst filled with fluid and then ruptured and started to bleed. Has been missing work due to labial cyst. SOCIAL HISTORY: Social History Tobacco Use Smoking status: Never Smokeless tobacco: Never Tobacco comments: vapes Vaping Use Vaping status: current everyday user Substances: Nicotine, Flavoring Devices: Disposable, Pre-filled or refillable cartridge Substance Use Topics Alcohol use: Not Currently Drug use: Yes Types: Marijuana ALLERGIES Allergen Reactions Bactrim [Sulfametho* Vomiting Current Outpatient Medications on File Prior to Visit Medication Sig sertraline (ZOLOFT) 25 mg tablet Take 1 tablet by mouth once daily. senna-docusate (SENNA-S) 8.6-50 mg per tablet Take by mouth. acetaminophen (TYLENOL) 500 mg tablet Take by mouth. No current facility-administered medications on file prior to visit. OBJECTIVE: VITALS: BP 102/64 Pulse 80 Resp 14 Ht 160 cm (5' 3) Wt 52.4 kg (115 lb 9.6 oz) LMP 03/01/2025 (Approximate) BMI 20.48 kg/m HEENT: Normocephalic, atraumatic, Mucus membranes moist without lesions. SKIN: No lesions. CHEST: Clear to auscultation. No wheezes or rales. Good air exchange. HEART: Regular rate and rhythm No S3 or S4. No gallops or rubs. BACK: Nontender. LOWER EXTREMITIES: There was no pitting edema, no palpable cords and no skin changes. ASSESSMENT: pre op PLAN: 1) Discussed r/b/a EUA, labial cyst excision. Discussed may not be able to remove all of the cyst wall, which could lead to re occurring cyst. Discussed possible chronic pain. Patient understands risks with procedure. The patient desires to proceed as the cyst is bothersome for her, and interfering with daily life. The rationale for the proposed surgery was discussed in addition to risks, benefits, and alternatives. General pre- and post-operative care was reviewed. Questions were answered. After discussion, the patient indicated a desire to proceed with the planned surgery. Елена Valladares DO Medical Decision Making: Problems: Moderate: 1+ chronic illnesses with change Risk: Moderate: Decision on minor surgery w/ risk factors Medical Decision Making Level: 4 - Moderate [facility] 03-02-2025 History and physical note DATE OF SERVICE: March 02, 2025 PROBLEM: labial cyst, pre op PAST SURGICAL HISTORY: PAST SURGICAL HISTORY Procedure Laterality Date APPENDECTOMY patient was in 6th grade PAST SURGICAL HISTORY OF Left 04/07/2022 Benign Cyst Removal from Labia PAST MEDICAL HISTORY: PAST MEDICAL HISTORY Diagnosis Date Anemia complicating , third trimester (HCC) 08/05/2023 Depression with anxiety Pilonidal abscess 06/10/2023 06/10/23- was treated during . She was told that she may need to follow with general surgery. Abhay Bone APRN.CNM Pilonidal cyst 2022 SUBJECTIVE: Recently the cyst filled with fluid and then ruptured and started to bleed. Has been missing work due to labial cyst. SOCIAL HISTORY: Social History Tobacco Use Smoking status: Never Smokeless tobacco: Never Tobacco comments: vapes Vaping Use Vaping status: current everyday user Substances: Nicotine, Flavoring Devices: Disposable, Pre-filled or refillable cartridge Substance Use Topics Alcohol use: Not Currently Drug use: Yes Types: Marijuana ALLERGIES Allergen Reactions Bactrim [Sulfametho* Vomiting Current Outpatient Medications on File Prior to Visit Medication Sig sertraline (ZOLOFT) 25 mg tablet Take 1 tablet by mouth once daily. senna-docusate (SENNA-S) 8.6-50 mg per tablet Take by mouth. acetaminophen (TYLENOL) 500 mg tablet Take by mouth. No current facility-administered medications on file prior to visit. OBJECTIVE: VITALS: BP 102/64 Pulse 80 Resp 14 Ht 160 cm (5' 3) Wt 52.4 kg (115 lb 9.6 oz) LMP 03/01/2025 (Approximate) BMI 20.48 kg/m HEENT: Normocephalic, atraumatic, Mucus membranes moist without lesions. SKIN: No lesions. CHEST: Clear to auscultation. No wheezes or rales. Good air exchange. HEART: Regular rate and rhythm No S3 or S4. No gallops or rubs. BACK: Nontender. LOWER EXTREMITIES: There was no pitting edema, no palpable cords and no skin changes. ASSESSMENT: pre op PLAN: 1) Discussed r/b/a EUA, labial cyst excision. Discussed may not be able to remove all of the cyst wall, which could lead to re occurring cyst. Discussed possible chronic pain. Patient understands risks with procedure. The patient desires to proceed as the cyst is bothersome for her, and interfering with daily life. The rationale for the proposed surgery was discussed in addition to risks, benefits, and alternatives. General pre- and post-operative care was reviewed. Questions were answered. After discussion, the patient indicated a desire to proceed with the planned surgery. Елена Valladares DO Medical Decision Making: Problems: Moderate: 1+ chronic illnesses with change Risk: Moderate: Decision on minor surgery w/ risk factors Medical Decision Making Level: 4 - Moderate documented in this encounter [facility] 02-17-2025 Telephone encounter Note Filed Agree with urgent care or needs an office visit to address her concerns thanks [facility] Work Phone: 02-17-2025 Miscellaneous Notes Filed Agree with urgent care or needs an office visit to address her concerns thanks Pt notified and Pt states her paps in past and been normal. Pt states she has received 1 HPV vaccine in 2014-agreeable to get additional doses of vaccine. Pt states she does have Chronic pain with intercourse. Pt also c/o UTI sx-dysuria. Offered appt today; however, Pt at work and unable to come in. Pt states sx have been ongoing for a week. Advised Pt to go to express care this week for UTI. Pt agreeable. HPV vaccine order pending.Anni Alvarez RN Images from the original note were not included. Елена Valladares MD to [facility] [employer] [place] 02/17/25 8:13 AM Result Note Notify pt LSIL pap smear. Needs repeat pap in 12 months PAP TEST documented in this encounter [facility] 02-17-2025 Telephone encounter Note Pt notified and Pt states her paps in past and been normal. Pt states she has received 1 HPV vaccine in 2014-agreeable to get additional doses of vaccine. Pt states she does have Chronic pain with intercourse. Pt also c/o UTI sx-dysuria. Offered appt today; however, Pt at work and unable to come in. Pt states sx have been ongoing for a week. Advised Pt to go to express care this week for UTI. Pt agreeable. HPV vaccine order pending.Anni Alvarez RN [facility] 02-17-2025 Telephone encounter Note Images from the original note were not included. Елена Valladares MD to [facility] [employer] [place] 02/17/25 8:13 AM Result Note Notify pt LSIL pap smear. Needs repeat pap in 12 months PAP TEST [facility] 02-09-2025 Note HNO ID: [id number] Author: ЕЛЕНА VALLADARES MD Service: ? Author Type: Physician Type: Progress Notes Filed: 02/09/2025 17:45 Note Text: Test Bore Helper offered: Patient declines. Tianna Louis is a 19 year old female who presents for problem visit - labial cyst. HPI: Has noticed a labial cyst that has been present for years. She feels it changes in size and consistency. At times she has pain from the cyst. Right now she feels the cyst is smaller in size. No fevers, chills, malaise. Has chronic nausea and vomiting. Reports having multiple procedures for the cyst. She has had it drained multiple times and had a provider in [place] remove the cyst in the OR at the age of [age] years old. This cyst is interefering witrh her life. She has missed work due to the pain and size of the cyst at times. Unable to have intercourse due to the cyst. Would like to discuss surgical options. OB History Gravida1 Para1 Term1 Preterm0 AB0 Living1 SAB0 IAB0 Ectopic0 Multiple0 Live Births1 Sales Person History LMP: 01/05/2025 (Approximate), Having periods Age at Menarche: Age at First : Age at Menopause: Sales Person History Comments: Sexual Activity: Yes; Male Contraception: No contraception data on record PAST MEDICAL HISTORY Diagnosis Date Anemia complicating , third trimester (HCC) 08/05/2023 Depression with anxiety Pilonidal abscess 06/10/2023 06/10/23- was treated during . She was told that she may need to follow with general surgery. Abhay Bone APRN.CNM Pilonidal cyst 2022 PAST SURGICAL HISTORY Procedure Laterality Date APPENDECTOMY patient was in 6th grade PAST SURGICAL HISTORY OF Left 04/07/2022 Benign Cyst Removal from Labia FAMILY HISTORY Problem Relation Age of Onset Breast Cancer Maternal Grandmother possible Endometrial Cancer as well Social History Tobacco Use Smoking status: Never Smokeless tobacco: Never Tobacco comments: vapes Vaping Use Vaping status: current everyday user Substances: Nicotine, Flavoring Devices: Disposable, Pre-filled or refillable cartridge Substance Use Topics Alcohol use: Not Currently Drug use: Yes Types: Marijuana Current Outpatient Medications Medication Sig sertraline (ZOLOFT) 25 mg tablet Take 1 tablet by mouth once daily. senna-docusate (SENNA-S) 8.6-50 mg per tablet Take by mouth. acetaminophen (TYLENOL) 500 mg tablet Take by mouth. dicyclomine (BENTYL) 20 mg tablet Take 20 mg by mouth once daily. (Patient not taking: Reported on 12/01/2024) No current facility-administered medications for this visit. Allergies As of Date: 02/09/2025 Allergen Noted Reaction BACTRIM [SULFAMETHOXAZOLE-TRIMETH*2022 Vomiting Fully Assessed 02/09/2025 REVIEW OF SYSTEMS Expanded ROS: N/A Allergies and current medication updated:Yes SENSITIVE EXAM: The sensitive examination was discussed with the Patient or Patient's Authorized Search Engine Optimization Analyst. As applicable, any other physician, advance practice provider, medical student, or other health professional student that will be observing or involved in the sensitive examination for educational or training purposes was discussed with the Patient or Authorized Search Engine Optimization Analyst. The Patient or Authorized Search Engine Optimization Analyst has agreed to proceed with the sensitive examination. (Sensitive examination includes inspection and/or palpation of the breasts, pelvis, prostate and anorectal regions). EXAM: BP 120/76 Wt 112 lb 12.8 oz (51.2kg) LMP 01/05/2025 GENERAL: pleasant, female in no apparent distress HEENT: Normocephalic and atraumatic CHEST: Normal inspiratory effort PELVIC: Left labia minora cyst with minimal to no fluid collection present at this time but cyst wall visible and palpated, and involves > 50% of labia. NEURO: exam grossly non-focal EXTREMITIES: normal ASSESSMENT AND PLAN: Assessment AND Plan Screening for cervical cancer Orders: PAP TEST Special screening examination for human papillomavirus (HPV) Orders: PAP TEST Labial cyst Patient desires surgical management of persistent left labial cyst that is interfering with her life. Discussed r/b/a surgical excision of cyst. Discussed could have chronic pain after surgery. She understands risks of surgical management of the cyst and would like to proceed. She does not remember who performed the prior cyst removal surgery, or where it was performed so unable to get records. Continue daily sitz baths. At this time an IANDD is not needed. Surgery sheet completed. Елена Valladares, Medical Decision Making: Problems: Low: Stable chronic illness Risk: Low: Low risk from testing/treatment Medical Decision Making Level: 3 - Low [facility] 01-02-2025 Telephone encounter Note No Show Documentation Tianna Louis no showed for an appointment on 01/02/25 with Sly Cam MD at 9:00 AM. She was scheduled for follow up. I called and spoke with the patient regarding her missed appointment. Tianna stated the reason that she missed her appointment was because - Attempted to contact the patient regarding missed appointment. Unable to leave message . Resources discussed/offered to patient: N/A No show determined to be fault of patient: N/A This is the patients first no show in the last 12 months. Patient was rescheduled for N/A. Letter mailed : Yes Is this the Third or Fourth No Show? No Marcos Stone January 02, 2025 9:40 AM [facility] 01-02-2025 Miscellaneous Notes No Show Documentation Tianna Louis no showed for an appointment on 01/02/25 with Sly Cam MD at 9:00 AM. She was scheduled for follow up. I called and spoke with the patient regarding her missed appointment. Tianna stated the reason that she missed her appointment was because - Attempted to contact the patient regarding missed appointment. Unable to leave message . Resources discussed/offered to patient: N/A No show determined to be fault of patient: N/A This is the patients first no show in the last 12 months. Patient was rescheduled for N/A. Letter mailed : Yes Is this the Third or Fourth No Show? No Marcos Stone January 02, 2025 9:40 AM documented in this encounter [facility] 12-14-2024 Note HNO ID: [id number] Author: JUANCARLOS CHAND MD Service: ? Author Type: Physician Type: Progress Notes Filed: 12/14/2024 09:27 Note Text: Attending Note I agree with the resident's findings and plan as documented and have discussed the case and management of the patient's care with the resident. Started SSRI today, can follow up in several week for response. Previous workup unrevealing for abdominal pain I have reviewed the resident note and agree with assessment and plan. Relevant imaging, laboratory tests, and interval notes have been reviewed during the attestation process. Signature: Juancarlos Chand MD Date: 12/14/2024 Time: 9:18 AM [facility] 12-14-2024 History of Presen t illness Narrative Attending Note I agree with the resident's findings and plan as documented and have discussed the case and management of the patient's care with the resident. Started SSRI today, can follow up in several week for response. Previous workup unrevealing for abdominal pain I have reviewed the resident note and agree with assessment and plan. Relevant imaging, laboratory tests, and interval notes have been reviewed during the attestation process. Signature: Juancarlos Chand MD Date: 12/14/2024 Time: 9:18 AM Images from the original note were not included. [facility] Lokesh Friend MD ASSESSMENT/PLAN: 1. MELISSA (generalized anxiety disorder) - ICD9: 300.02, ICD10: F41.1 (primary diagnosis) 2. Moderate episode of recurrent major depressive disorder (HCC) - ICD9: 296.32, ICD10: F33.1 - never took her lexapro, mentioned that it did not work before so she would like to try other antidepressants - explained to the patient that antidepressant may need 4-8 weeks to really work - educate patient to close monitoring the side effects and come back in 1 month to see how she does in the new med. - patient had issue with psychiatry team, would like to see psychology at this moment - CONSULT TO PSYCHOLOGY - SERTRALINE 25 MG TABLET Lokesh Friend MD SUBJECTIVE: Tianna Louis is a 19 year old female here today for acute visit. HPI PMH significant for depression and anxiety, Lexapro was prescribed for depression but did not take it. She had it before and feels that it never work at all, so she wants something else. 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 Patient had holter monitor placed on 09/2024, which showed normal result. CBC and CMP 2 weeks ago were normal, TSH 09/2024 wnl Patient feels very anxious. She feels that all her symptoms before might have correlation with her anxiety, especially knowing that all her lab works were normal. She mentioned at one time, she felt palpitation with HR of 142 when she was lying down at home. She admitted that she has a lot going on at her family, she's splitting up with her partner and still fighting for custody. She would like to try other medication than lexapro. She has never taken the lexapro that she was prescribed before. She never tried other antidepressants. She mentioned that she supposed to see psych, but she wanted to change provider. However, roselyn l[facility] tried to call them, the computer aided design operator was just very unpleasant and kept telling her to see the same provider and take the lexapro. So, she requested to see psychology for now until her issue with psych team can be solved. GAD7 is 19 today PHQ9 is 13 PAST MEDICAL HISTORY Diagnosis Date Anemia complicating , third trimester 08/05/2023 Depression with anxiety Pilonidal abscess 06/10/2023 06/10/23- was treated during . She was told that she may need to follow with general surgery. Abhay Bone APRN.CNM Pilonidal cyst 2022 PAST SURGICAL HISTORY Procedure Laterality Date APPENDECTOMY patient was in 6th grade PAST SURGICAL HISTORY OF Left 04/07/2022 Benign Cyst Removal from [facility] Social History Tobacco Use Smoking status: Never Smokeless tobacco: Never Tobacco comments: vapes Vaping Use Vaping status: current everyday user Substances: Nicotine, Flavoring Devices: Disposable, Pre-filled or refillable cartridge Substance Use Topics Alcohol use: Not Currently Drug use: Yes Types: Marijuana FAMILY HISTORY Problem Relation Age of Onset Breast Cancer Maternal Grandmother possible Endometrial Cancer as well PAIN EVALUATION No data found in the last 1 encounters. ALLERGIES Allergen Reactions Bactrim [Sulfametho* Vomiting Medication List prior to visit Current Outpatient Medications Medication Sig senna-docusate (SENNA-S) 8.6-50 mg per tablet Take by mouth. acetaminophen (TYLENOL) 500 mg tablet Take by mouth. famotidine (PEPCID) 20 mg tablet Take 1 tablet by mouth daily at bedtime. polyethylene glycol 3350 (MIRALAX) 17 gram/dose powder Take 17 g by mouth as directed. Dissolve dose in 4 - 8 ounces of liquid and take as directed. sertraline (ZOLOFT) 25 mg tablet Take 1 tablet by mouth once daily. dicyclomine (BENTYL) 20 mg tablet Take 20 mg by mouth once daily. (Patient not taking: Reported on 12/01/2024) No current facility-administered medications for this visit. I have confirmed and edited as necessary the chief complaint, medications, past medical, family and social histories. Review of Systems Constitutional: Positive for appetite change and fatigue. Negative for chills and fever. HENT: Negative for ear discharge, ear pain, rhinorrhea and sore throat. Eyes: Negative for discharge and redness. Respiratory: Negative for cough and shortness of breath. Cardiovascular: Negative for chest pain. Gastrointestinal: Negative for abdominal pain, nausea and vomiting. Genitourinary: Negative for dysuria and flank pain. Musculoskeletal: Negative for joint swelling and myalgias. Skin: Negative for rash. Neurological: Negative for seizures, speech difficulty, weakness, numbness and headaches. OBJECTIVE: BP 118/72 Pulse 94 Temp 37.3 C (99.1 F) Resp 17 Ht 160 cm (5' 3) Wt 53.5 kg (118 lb) LMP 11/07/2024 (Approximate) SpO2 100% No BMI 20.90 kg/m Last Wt 12/14/24 : 53.5 kg (118 lb) 12/01/24 : 53.5 kg (118 lb) 11/07/24 : 57.2 kg (126 lb) Last BP 12/14/24 : 118/72 12/01/24 : 102/71 11/07/24 : 108/76 Physical Exam Vitals and nursing note reviewed. Constitutional: General: She is not in acute distress. HENT: Head: Normocephalic and atraumatic. Mouth/Throat: Mouth: Mucous membranes are moist. Pharynx: Oropharynx is clear. Eyes: Extraocular Movements: Extraocular movements intact. Pupils: Pupils are equal, round, and reactive to light. Cardiovascular: Rate and Rhythm: Normal rate and regular rhythm. Pulses: Normal pulses. Heart sounds: Normal heart sounds. Pulmonary: Effort: Pulmonary effort is normal. Breath sounds: Normal breath sounds. Abdominal: General: Bowel sounds are normal. Palpations: Abdomen is soft. Tenderness: There is no abdominal tenderness. There is no guarding. Musculoskeletal: Right lower leg: No edema. Left lower leg: No edema. Skin: General: Skin is warm and dry. Capillary Refill: Capillary refill takes less than 2 seconds. Neurological: General: No focal deficit present. Mental Status: She is alert and oriented to person, place, and time. 12/01/2024 12/14/2024 PHQ-9 All Questions Little interest or pleasure in doing things: 1 Feeling down, depressed, or hopeless: 1 Trouble falling or staying asleep, or sleeping too much 3 Feeling tired or having little energy 1 Poor appetite or overeating 3 Feeling bad about yourself - or that you are a failure or have let yourself or your family down 1 Trouble concentrating on things, such as reading the newspaper or watching television 2 Moving or speaking so slowly that other people could have noticed. Or the opposite - being so fidgety or restless that you have been moving around a lot more than usual 1 Thoughts that you would be better off , or of hurting yourself in some way 0 PHQ-9 Score 0 13 (0-4) minimal depression, (5-9) mild depression, (10-14) moderate depression, (15-19) moderately severe depression, (20-27) severe depression Screening tool completed by patient. Based on the PHQ-9 score and patient interview, patient is already diagnosed with depression. Screening tool discussed with patient, and I recommended counseling/psychology referral, psychiatry referral, and starting medication. Medications Discontinued During This Encounter Medication Reason escitalopram oxalate (LEXAPRO) 5 mg tablet Discontinued by Patient Return in about 4 weeks (around 01/11/2025). Discussed the above with the patient and my preceptor using shared decision-making. The patient is in agreement with the diagnostic and treatment plans. Lokesh Friend MD, signed on December 14, 2024 8:50 AM documented in this encounter [facility] 12-14-2024 Instructions Lokesh Friend MD - 12/14/2024 9:14 AM EST Images from the original note were not included. An Overview of Anxiety Disorders What is [...] of Mental Disorders (DSM-5), published by the [employer] [employer]. How are anxiety disorders treated? [...] your doctor or pharmacist before taking any [id number] medicines or herbal remedies. Many contain chemicals that can increase anxiety symptoms. Exercise daily and eat a healthy, balanced diet. Seek counseling and support after a traumatic or disturbing experience. References [employer]. Anxiety Accessed 07/20/2014. [place] [employer]. DSM Accessed 07/20/2014. Copyright 4415-6739 The [facility]. All rights reserved This information is provided by the [facility] and is not intended to replace the medical advice of your doctor or health care provider. Please consult your health care provider for advice about a specific medical condition. For additional health information, please contact the Center for Consumer Health Information at the [facility] or toll-free extension [phone]. If you prefer, you may visit [email or web address] or [email or web address]. This document was last reviewed on: 2017 index#[id number] documented in this encounter [facility] 12-14-2024 Note HNO ID: [id number] Author: LOKESH FRIEND MD Service: ? Author Type: Resident Type: Progress Notes Filed: 12/14/2024 09:52 Note Text: [facility] Lokesh Friend MD ASSESSMENT/PLAN: 1. MELISSA (generalized anxiety disorder) - ICD9: 300.02, ICD10: F41.1 (primary diagnosis) 2. Moderate episode of recurrent major depressive disorder (HCC) - ICD9: 296.32, ICD10: F33.1 - never took her lexapro, mentioned that it did not work before so she would like to try other antidepressants - explained to the patient that antidepressant may need 4-8 weeks to really work - educate patient to close monitoring the side effects and come back in 1 month to see how she does in the new med. - patient had issue with psychiatry team, would like to see psychology at this moment - CONSULT TO PSYCHOLOGY - SERTRALINE 25 MG TABLET Lokesh Friend MD SUBJECTIVE: Tianna Louis is a 19 year old female here today for acute visit. HPI PMH significant for depression and anxiety, Lexapro was prescribed for depression but did not take it. She had it before and feels that it never work at all, so she wants something else. 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 Patient had holter monitor placed on 09/2024, which showed normal result. CBC and CMP 2 weeks ago were normal, TSH 09/2024 wnl Patient feels very anxious. She feels that all her symptoms before might have correlation with her anxiety, especially knowing that all her lab works were normal. She mentioned at one time, she felt palpitation with HR of 142 when she was lying down at home. She admitted that she has a lot going on at her family, she's splitting up with her partner and still fighting for custody. She would like to try other medication than lexapro. She has never taken the lexapro that she was prescribed before. She never tried other antidepressants. She mentioned that she supposed to see psych, but she wanted to change provider. However, dempsey anisha tried to call them, the computer aided design operator was just very unpleasant and kept telling her to see the same provider and take the lexapro. So, she requested to see psychology for now until her issue with psych team can be solved. GAD7 is 19 today PHQ9 is 13 PAST MEDICAL HISTORY Diagnosis Date Anemia complicating , third trimester 08/05/2023 Depression with anxiety Pilonidal abscess 06/10/2023 06/10/23- was treated during . She was told that she may need to follow with general surgery. Abhay Bone APRN.CNM Pilonidal cyst 2022 PAST SURGICAL HISTORY Procedure Laterality Date APPENDECTOMY patient was in 6th grade PAST SURGICAL HISTORY OF Left 04/07/2022 Benign Cyst Removal from [facility] Social History Tobacco Use Smoking status: Never Smokeless tobacco: Never Tobacco comments: vapes Vaping Use Vaping status: current everyday user Substances: Nicotine, Flavoring Devices: Disposable, Pre-filled or refillable cartridge Substance Use Topics Alcohol use: Not Currently Drug use: Yes Types: Marijuana FAMILY HISTORY Problem Relation Age of Onset Breast Cancer Maternal Grandmother possible Endometrial Cancer as well PAIN EVALUATION No data found in the last 1 encounters. ALLERGIES Allergen Reactions Bactrim [Sulfametho* Vomiting Medication List prior to visit Current Outpatient Medications Medication Sig senna-docusate (SENNA-S) 8.6-50 mg per tablet Take by mouth. acetaminophen (TYLENOL) 500 mg tablet Take by mouth. famotidine (PEPCID) 20 mg tablet Take 1 tablet by mouth daily at bedtime. polyethylene glycol 3350 (MIRALAX) 17 gram/dose powder Take 17 g by mouth as directed. Dissolve dose in 4 - 8 ounces of liquid and take as directed. sertraline (ZOLOFT) 25 mg tablet Take 1 tablet by mouth once daily. dicyclomine (BENTYL) 20 mg tablet Take 20 mg by mouth once daily. (Patient not taking: Reported on 12/01/2024) No current facility-administered medications for this visit. I have confirmed and edited as necessary the chief complaint, medications, past medical, family and social histories. Review of Systems Constitutional: Positive for appetite change and fatigue. Negative for chills and fever. HENT: Negative for ear discharge, ear pain, rhinorrhea and sore throat. Eyes: Negative for discharge and redness. Respiratory: Negative for cough and shortness of breath. Cardiovascular: Negative for chest pain. Gastrointestinal: Negative for abdominal pain, nausea and vomiting. Genitourinary: Negative for dysuria and flank pain. Musculoskeletal: Negative for joint swelling and myalgias. Skin: Negative for rash. Neurological: Negative for seizures, speech difficulty, weakness, numbness and headaches. OBJECTIVE: BP 118/72 Pulse 94 Temp 37.3 ?C (99.1 ?F) Resp 17 Ht 160 cm (5' 3) Wt 53.5 kg (118 lb) LMP 11/07/2024 (Approximate) SpO2 100% (more content not included)... [facility] 12-01-2024 Telephone encounter Note Referral to GI entered into the [facility] portal on 12/01/24. Confirmation number [id number]. [facility] 12-01-2024 Miscellaneous Notes Referral to GI entered into the [facility] portal on 12/01/24. Confirmation number [id number]. documented in this encounter [facility] 12-01-2024 Note HNO ID: [id number] Author: JUANCARLOS CHAND MD Service: ? Author Type: Physician Type: Progress Notes Filed: 12/05/2024 01:31 Note Text: Attending Note I agree with the resident's findings and plan as documented and have discussed the case and management of the patient's care with the resident. Here for reflux symptoms today with some weight loss. Recheck test, send to GI given red flag symptom for EGD. Pull additional workup for chronic diarrhea today as well. I have reviewed the resident note and agree with assessment and plan. Relevant imaging, laboratory tests, and interval notes have been reviewed during the attestation process. Signature: Juancarlos Chand MD Date: 12/01/2024 Time: 2:52 PM [facility] 12-01-2024 History of Presen t illness Narrative Attending Note I agree with the resident's findings and plan as documented and have discussed the case and management of the patient's care with the resident. Here for reflux symptoms today with some weight loss. Recheck test, send to GI given red flag symptom for EGD. Pull additional workup for chronic diarrhea today as well. I have reviewed the resident note and agree with assessment and plan. Relevant imaging, laboratory tests, and interval notes have been reviewed during the attestation process. Signature: Juancarlos Chand MD Date: 12/01/2024 Time: 2:52 PM Images from the original note were not included. [facility] Sly Cam MD ASSESSMENT/PLAN: 1. Stomach pain - ICD9: 536.8, ICD10: R10.9 (primary diagnosis) Ddx of stomach pain includes constipation, , GERD, PUD, Gastritis, IBS, Constipation, Celiac sprue, H. Pylori, functional dyspepsia (although emesis warrants consideration of another disorder). Red flag signs of weight loss, emesis, early satiety, and intolerance to solid>liquid warrants further evaluation with EGD. Associated diarrhea could coexist as another process and needs further workup. Ddx include celiac, diet, medications, IBS, IBD etc. Encouraged to take Bentyl in the meantime for any relief. - Check CBC, CMP, BMP, H pylori antibodies - Begin treatment with Famotidine - Setup for EGD - Refer for GI consult - FAMOTIDINE 20 MG TABLET - POLYETHYLENE GLYCOL 3350 17 GRAM/DOSE ORAL POWDER - H PYLORI IGG AB - ENTERIC BACTERIAL PANEL BY PCR - COMPLETE BLOOD COUNT - COMPREHENSIVE METABOLIC PANEL - CONSULT TO GASTROENTEROLOGY - HCG, QUALITATIVE, URINE - URINALYSIS, REFLEX MICROSCOPIC - XR ABDOMEN 1V SUPINE - SEDIMENTATION RATE, WESTERGREN - TRANSGLUTAMINASE ABS - GLIADIN (DEAMINATED) ABS 2. Special screening examination for viral disease - ICD9: V73.99, ICD10: Z11.59 - HEPATITIS C ANTIBODY IA WITH CONFIRMATION Sly Cam MD SUBJECTIVE: Tianna Louis is a 19 year old female here today for stomach pains. Said ever since of her child (born 08/15/2023) had stomach ache. Will go days without eating. Had just water today, which caused her to have an episode of emesis though she said intolerance is worse with more solid food. However, denies trouble swallowing. This morning said also had subjective fever, stomach pain spreading to back. Is worse at 4-5 AM in the morning. Will come and go. Occurs when she eats. Endorses early satiety where had only 2 stuffed shells last night and immediately felt full. Stomach pain is 8/10 sometimes up to 10/10. Sharp, stabbing pain in stomach and burning in back. Intermittent and would last from 2 hours at time on and off throughout the day. Will never know when it would happen. Has tried taking ibuprofen and tylenol without relief. Bentyl did help for a little but then it stopped working. Will be on floor hunched over sometimes from pain. Will sit on toilet. But will not have any BM. Sometimes does have BM, and will be diarrhea (explosive). Sometimes bleeding is associated with it. Dark stool, tarry looking, but not black. Associated with bloating. Having flatus. Constipated this morning, had 1-2 BM. Diarrhea interspersed. Weight loss 126 from 11/07 now is 118 lbs is significant and noticeable to her. Not sure if has acid reflux. Denies any recent travel. TSH form 09/27/2024 wnl. Menstrual cycles returned are regular and normal flow. Hx of anxiety and depression. Lexapro was prescribed for depression but did not take it. 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 PAST MEDICAL HISTORY Diagnosis Date Anemia complicating , third trimester 08/05/2023 Depression with anxiety Pilonidal abscess 06/10/2023 06/10/23- was treated during . She was told that she may need to follow with general surgery. Abhay Bone APRN.CNM Pilonidal cyst 2022 PAST SURGICAL HISTORY Procedure Laterality Date APPENDECTOMY patient was in 6th grade PAST SURGICAL HISTORY OF Left 04/07/2022 Benign Cyst Removal from [facility] Social History Tobacco Use Smoking status: Never Smokeless tobacco: Never Tobacco comments: vapes Vaping Use Vaping status: current everyday user Substances: Nicotine, Flavoring Devices: Disposable, Pre-filled or refillable cartridge Substance Use Topics Alcohol use: Not Currently Drug use: Yes Types: Marijuana FAMILY HISTORY Problem Relation Age of Onset Breast Cancer Maternal Grandmother possible Endometrial Cancer as well PAIN EVALUATION No data found in the last 1 encounters. ALLERGIES Allergen Reactions Bactrim [Sulfametho* Vomiting Medication List prior to visit Current Outpatient Medications Medication Sig senna-docusate (SENNA-S) 8.6-50 mg per tablet Take by mouth. acetaminophen (TYLENOL) 500 mg tablet Take by mouth. famotidine (PEPCID) 20 mg tablet Take 1 tablet by mouth daily at bedtime. polyethylene glycol 3350 (MIRALAX) 17 gram/dose powder Take 17 g by mouth as directed. Dissolve dose in 4 - 8 ounces of liquid and take as directed. dicyclomine (BENTYL) 20 mg tablet Take 20 mg by mouth once daily. (Patient not taking: Reported on 12/01/2024) escitalopram oxalate (LEXAPRO) 5 mg tablet Take 1 tablet by mouth once daily. (Patient not taking: Reported on 12/01/2024) No current facility-administered medications for this visit. I have confirmed and edited as necessary the chief complaint, medications, past medical, family and social histories. OBJECTIVE: BP 102/71 Pulse 114 Temp 36.9 C (98.4 F) Resp 17 Ht 160 cm (5' 3) Wt 53.5 kg (118 lb) LMP 10/13/2024 (Exact Date) SpO2 98% BMI 20.90 kg/m Last Wt 12/01/24 : 53.5 kg (118 lb) 11/07/24 : 57.2 kg (126 lb) 09/27/24 : 55.8 kg (123 lb) Last BP 12/01/24 : 102/71 11/07/24 : 108/76 09/27/24 : 106/71 Physical Exam Constitutional: General: She is not in acute distress. Appearance: Normal appearance. She is not ill-appearing or diaphoretic. HENT: Head: Normocephalic and atraumatic. Nose: No congestion or rhinorrhea. Cardiovascular: Rate and Rhythm: Regular rhythm. Tachycardia present. Pulses: Normal pulses. Heart sounds: Normal heart sounds. No murmur heard. No friction rub. No gallop. Pulmonary: Effort: Pulmonary effort is normal. No respiratory distress. Breath sounds: Normal breath sounds. No stridor. No wheezing, rhonchi or rales. Abdominal: General: Bowel sounds are normal. There is no distension. Palpations: Abdomen is soft. There is no mass. Tenderness: There is no abdominal tenderness. There is no guarding or rebound. Hernia: No hernia is present. Musculoskeletal: Right lower leg: No edema. Left lower leg: No edema. Skin: Findings: No bruising or erythema. Neurological: Mental Status: She is alert. Psychiatric: Mood and Affect: Mood normal. Behavior: Behavior normal. Thought Content: Thought content normal. 12/01/2023 12/01/2024 PHQ-9 All Questions Little interest or pleasure in doing things: 1 Feeling down, depressed, or hopeless: 1 Trouble falling or staying asleep, or sleeping too much 1 Feeling tired or having little energy 1 Poor appetite or overeating 3 Feeling bad about yourself - or that you are a failure or have let yourself or your family down 1 Trouble concentrating on things, such as reading the newspaper or watching television 0 Moving or speaking so slowly that other people could have noticed. Or the opposite - being so fidgety or restless that you have been moving around a lot more than usual 0 Thoughts that you would be better off , or of hurting yourself in some way 0 PHQ-9 Score 8 0 (0-4) minimal depression, (5-9) mild depression, (10-14) moderate depression, (15-19) moderately severe depression, (20-27) severe depression Screening tool completed by patient. Based on the PHQ-9 score and patient interview, patient is already diagnosed with depression. Screening tool discussed with patient, and I recommended no further intervention at this time. There are no discontinued medications. Return in about 5 weeks (around 01/05/2025). Discussed the above with the patient and my preceptor using shared decision-making. The patient is in agreement with the diagnostic and treatment plans. Sly Cam MD, signed on December 01, 2024 2:06 PM documented in this encounter [facility] 12-01-2024 Note HNO ID: [id number] Author: SLY PRIDE MD Service: ? Author Type: Resident Type: Progress Notes Filed: 12/05/2024 01:31 Note Text: [facility] Sly Cam MD ASSESSMENT/PLAN: 1. Stomach pain - ICD9: 536.8, ICD10: R10.9 (primary diagnosis) Ddx of stomach pain includes constipation, , GERD, PUD, Gastritis, IBS, Constipation, Celiac sprue, H. Pylori, functional dyspepsia (although emesis warrants consideration of another disorder). Red flag signs of weight loss, emesis, early satiety, and intolerance to solid>liquid warrants further evaluation with EGD. Associated diarrhea could coexist as another process and needs further workup. Ddx include celiac, diet, medications, IBS, IBD etc. Encouraged to take Bentyl in the meantime for any relief. - Check CBC, CMP, BMP, H pylori antibodies - Begin treatment with Famotidine - Setup for EGD - Refer for GI consult - FAMOTIDINE 20 MG TABLET - POLYETHYLENE GLYCOL 3350 17 GRAM/DOSE ORAL POWDER - H PYLORI IGG AB - ENTERIC BACTERIAL PANEL BY PCR - COMPLETE BLOOD COUNT - COMPREHENSIVE METABOLIC PANEL - CONSULT TO GASTROENTEROLOGY - HCG, QUALITATIVE, URINE - URINALYSIS, REFLEX MICROSCOPIC - XR ABDOMEN 1V SUPINE - SEDIMENTATION RATE, WESTERGREN - TRANSGLUTAMINASE ABS - GLIADIN (DEAMINATED) ABS 2. Special screening examination for viral disease - ICD9: V73.99, ICD10: Z11.59 - HEPATITIS C ANTIBODY IA WITH CONFIRMATION Sly Cam MD SUBJECTIVE: Tianna Louis is a 19 year old female here today for stomach pains. Said ever since of her child (born 08/15/2023) had stomach ache. Will go days without eating. Had just water today, which caused her to have an episode of emesis though she said intolerance is worse with more solid food. However, denies trouble swallowing. This morning said also had subjective fever, stomach pain spreading to back. Is worse at 4-5 AM in the morning. Will come and go. Occurs when she eats. Endorses early satiety where had only 2 stuffed shells last night and immediately felt full. Stomach pain is 8/10 sometimes up to 10/10. Sharp, stabbing pain in stomach and burning in back. Intermittent and would last from 2 hours at time on and off throughout the day. Will never know when it would happen. Has tried taking ibuprofen and tylenol without relief. Romario did help for a little but then it stopped working. Will be on floor hunched over sometimes from pain. Will sit on toilet. But will not have any BM. Sometimes does have BM, and will be diarrhea (explosive). Sometimes bleeding is associated with it. Dark stool, tarry looking, but not black. Associated with bloating. Having flatus. Constipated this morning, had 1-2 BM. Diarrhea interspersed. Weight loss 126 from 11/07 now is 118 lbs is significant and noticeable to her. Not sure if has acid reflux. Denies any recent travel. TSH form 09/27/2024 wnl. Menstrual cycles returned are regular and normal flow. Hx of anxiety and depression. Lexapro was prescribed for depression but did not take it. 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 PAST MEDICAL HISTORY Diagnosis Date Anemia complicating , third trimester 08/05/2023 Depression with anxiety Pilonidal abscess 06/10/2023 06/10/23- was treated during . She was told that she may need to follow with general surgery. Abhay Bone APRN.CNM Pilonidal cyst 2022 PAST SURGICAL HISTORY Procedure Laterality Date APPENDECTOMY patient was in 6th grade PAST SURGICAL HISTORY OF Left 04/07/2022 Benign Cyst Removal from [facility] Social History Tobacco Use Smoking status: Never Smokeless tobacco: Never Tobacco comments: vapes Vaping Use Vaping status: current everyday user Substances: Nicotine, Flavoring Devices: Disposable, Pre-filled or refillable cartridge Substance Use Topics Alcohol use: Not Currently Drug use: Yes Types: Marijuana FAMILY HISTORY Problem Relation Age of Onset Breast Cancer Maternal Grandmother possible Endometrial Cancer as well PAIN EVALUATION No data found in the last 1 encounters. ALLERGIES Allergen Reactions Bactrim [Sulfametho* Vomiting Medication List prior to visit Current Outpatient Medications Medication Sig senna-docusate (SENNA-S) 8.6-50 mg per tablet Take by mouth. acetaminophen (TYLENOL) 500 mg tablet Take by mouth. famotidine (PEPCID) 20 mg tablet Take 1 tablet by mouth daily at bedtime. polyethylene glycol 3350 (MIRALAX) 17 gram/dose powder Take 17 g by mouth as directed. Dissolve dose in 4 - 8 ounces of liquid and take as directed. dicyclomine (BENTYL) 20 mg tablet Take 20 mg by mouth once daily. (Patient not taking: Reported on 12/01/2024) escitalopram oxalate (LEXAPRO) 5 mg tablet Take 1 tablet by mouth once daily. (Patient not taking: Reported on (more content not included)... [facility] 11-07-2024 Note HNO ID: [id number] Author: ABHAY BONE APRN.CNM Service: ? Author Type: Store Stocker Type: Progress Notes Filed: 11/07/2024 09:53 Note Text: Tianna Louis is a 19 year old female who presents for follow up visit. HPI: Reports three weeks ago developing and bartholin gland cyst on left side. She was trying to decrease size and pain by using sitz baths, warm compresses etc. Stated continued to grow and get more painful. Seen at Urgent Care last week and had cyst drained. No culture taken. Not placed on antibiotics. Was told to follow up with [facility]. She denies any current pain. Some vaginal discharge with itching. Verbal consent for STD screening with vaginal swabs. 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 She was told that she may need to follow with general surgery. Abhay Bone APRN.CNM Pilonidal cyst 2022 PAST SURGICAL HISTORY Procedure Laterality Date APPENDECTOMY patient was in 6th grade PAST SURGICAL HISTORY OF Left 04/07/2022 Benign Cyst Removal from [facility] FAMILY HISTORY Problem Relation Age of Onset Breast Cancer Maternal Grandmother possible Endometrial Cancer as well Social History Tobacco Use Smoking status: Never Smokeless tobacco: Never Tobacco comments: vapes Vaping Use Vaping status: current everyday user Substance Use Topics Alcohol use: Not Currently Drug use: Yes Types: Marijuana Current Outpatient Medications Medication Sig dicyclomine (BENTYL) 20 mg tablet Take 20 mg by mouth once daily. escitalopram oxalate (LEXAPRO) 5 mg tablet Take 1 tablet by mouth once daily. No current facility-administered medications for this visit. Allergies As of Date: 11/07/2024 Allergen Noted Reaction BACTRIM [SULFAMETHOXAZOLE-TRIMETH*2022 Vomiting Fully Assessed 11/07/2024 REVIEW OF SYSTEMS Abdomen: No bloating, early satiety, indigestion, or increased flatulence. No abdominal pain, nausea, vomiting, diarrhea, or constipation. Bladder: No dysuria, gross hematuria, urinary frequency, urinary urgency, or incontinence. Breast: No breast lumps, nipple d/c, overlying skin changes, redness or skin retraction. Expanded ROS: N/A Allergies and current medication updated:Yes SENSITIVE EXAM: The sensitive examination was discussed with the Patient or Patient's Authorized Search Engine Optimization Analyst. As applicable, any other physician, advance practice provider, medical student, or other health professional student that will be observing or involved in the sensitive examination for educational or training purposes was discussed with the Patient or Authorized Search Engine Optimization Analyst. The Patient or Authorized Search Engine Optimization Analyst has agreed to proceed with the sensitive examination. (Sensitive examination includes inspection and/or palpation of the breasts, pelvis, prostate and anorectal regions). EXAM: BP 108/76 Wt 126 lb (57.2kg) LMP 10/13/2024 GENERAL: pleasant, female in no apparent distress HEENT: Normocephalic and atraumatic NECK: Supple and full range of motion DERMATOLOGY: Normal and without lesions BREAST: deferred CHEST: Normal inspiratory effort ABDOMEN: soft and non-tender PELVIC: external genitalia normal, normal Bartholin's glands, urethra, [place]'s glands, no vulvar lesions, no cervical lesions, good vaginal support, normal appearing perineal body and perianal region No bartholin cyst visible. Increased amount of thick, white discharge BIMANUAL: uterus normal size, shape and consistency, no adnexal masses, non-tender, and no cervical motion tenderness NEURO: alert and oriented x3,exam grossly non-focal EXTREMITIES: normal ASSESSMENT AND PLAN: Assessment AND Plan Screen for STD (sexually transmitted disease) Vaginal discharge Acute vaginitis Bartholin cyst - GC/CH, BACT/YEAST collected and sent - Discussed placement of drain if gland becomes inflamed again - RTO as needed/Yearly exams - Will notify patient of results Abhay Plotts, ENVIRONMENTAL HEALTH SANITARIAN.ALLAN [facility] 11-07-2024 History of Presen t illness Narrative Tianna Louis is a 19 year old female who presents for follow up visit. HPI: Reports three weeks ago developing and bartholin gland cyst on left side. She was trying to decrease size and pain by using sitz baths, warm compresses etc. Stated continued to grow and get more painful. Seen at Urgent Care last week and had cyst drained. No culture taken. Not placed on antibiotics. Was told to follow up with [facility]. She denies any current pain. Some vaginal discharge with itching. Verbal consent for STD screening with vaginal swabs. 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 She was told that she may need to follow with general surgery. Abhay Bone APRN.ALLAN Pilonidal cyst 2022 PAST SURGICAL HISTORY Procedure Laterality Date APPENDECTOMY patient was in 6th grade PAST SURGICAL HISTORY OF Left 04/07/2022 Benign Cyst Removal from [facility] FAMILY HISTORY Problem Relation Age of Onset Breast Cancer Maternal Grandmother possible Endometrial Cancer as well Social History Tobacco Use Smoking status: Never Smokeless tobacco: Never Tobacco comments: vapes Vaping Use Vaping status: current everyday user Substance Use Topics Alcohol use: Not Currently Drug use: Yes Types: Marijuana Current Outpatient Medications Medication Sig dicyclomine (BENTYL) 20 mg tablet Take 20 mg by mouth once daily. escitalopram oxalate (LEXAPRO) 5 mg tablet Take 1 tablet by mouth once daily. No current facility-administered medications for this visit. Allergies As of Date: 11/07/2024 Allergen Noted Reaction BACTRIM [SULFAMETHOXAZOLE-TRIMETH*2022 Vomiting Fully Assessed 11/07/2024 REVIEW OF SYSTEMS Abdomen: No bloating, early satiety, indigestion, or increased flatulence. No abdominal pain, nausea, vomiting, diarrhea, or constipation. Bladder: No dysuria, gross hematuria, urinary frequency, urinary urgency, or incontinence. Breast: No breast lumps, nipple d/c, overlying skin changes, redness or skin retraction. Expanded ROS: N/A Allergies and current medication updated:Yes SENSITIVE EXAM: The sensitive examination was discussed with the Patient or Patient's Authorized Search Engine Optimization Analyst. As applicable, any other physician, advance practice provider, medical student, or other health professional student that will be observing or involved in the sensitive examination for educational or training purposes was discussed with the Patient or Authorized Search Engine Optimization Analyst. The Patient or Authorized Search Engine Optimization Analyst has agreed to proceed with the sensitive examination. (Sensitive examination includes inspection and/or palpation of the breasts, pelvis, prostate and anorectal regions). EXAM: BP 108/76 Wt 126 lb (57.2kg) LMP 10/13/2024 GENERAL: pleasant, female in no apparent distress HEENT: Normocephalic and atraumatic NECK: Supple and full range of motion DERMATOLOGY: Normal and without lesions BREAST: deferred CHEST: Normal inspiratory effort ABDOMEN: soft and non-tender PELVIC: external genitalia normal, normal Bartholin's glands, urethra, [place]'s glands, no vulvar lesions, no cervical lesions, good vaginal support, normal appearing perineal body and perianal region No bartholin cyst visible. Increased amount of thick, white discharge BIMANUAL: uterus normal size, shape and consistency, no adnexal masses, non-tender, and no cervical motion tenderness NEURO: alert and oriented x3,exam grossly non-focal EXTREMITIES: normal ASSESSMENT AND PLAN: Assessment & Plan Screen for STD (sexually transmitted disease) Vaginal discharge Acute vaginitis Bartholin cyst - GC/CH, BACT/YEAST collected and sent - Discussed placement of drain if gland becomes inflamed again - RTO as needed/Yearly exams - Will notify patient of results Abhay Bone APRN.CNM documented in this encounter [facility] 10-21-2024 Note HNO ID: [id number] Author: ?, ?, ? Service: ? Author Type: ? Type: Progress Notes Filed: 10/21/2024 12:50 Note Text: Sleep Study Check-In Documentation Date: October 21, 2024 Name: Tianna Louis Comments: HST was returned in working order with all sleep questionnaires Pulse ox throughout study is inconsistent; not sure if good enough for a reading. Passing on to the readers to determine. Jorden Jefferson [facility] 10-21-2024 History of Presen t illness Narrative Sleep Study Check-In Documentation Date: October 21, 2024 Name: Tianna Louis Comments: HST was returned in working order with all sleep questionnaires Pulse ox throughout study is inconsistent; not sure if good enough for a reading. Passing on to the readers to determine. Jorden Jefferson Nomad # [id number], date shipped out 10-17-24 Fed Ex only Tracking mailout:[id number] Tracking return: [id number] October 03, 2024 Standing PSG Orders signed in the last 90 days None Future PSG Orders signed in the last 90 days Ordered Auth. provider HOME SLEEP APNEA TEST (HSAT) [[id number]] 09/27/24 Rubin Borrego MD Assoc. diagnoses: At risk for obstructive sleep apnea [Z91.89] Q: Indications: A: Obstructive sleep apnea Q: STOP-BANG conditions - Select All That Apply: A: SNORING that is loud or disruptive A2: TIREDNESS, fatigue or sleepiness during the day A3: OBSERVED sleep apnea Q: Current use of supplemental oxygen during sleep period?: A: No All Prior Sleep Studies (past 365 days) 09/27/2024 Sleep Studies PAP TITRATION PSG (CPAP, BIPAP, ASV) PAP TITRATION PSG (CPAP, BIPAP, ASV) Order Status: Canceled, Future Expires: 10/27/25 HOME SLEEP APNEA TEST (HSAT) HOME SLEEP APNEA TEST (HSAT) Order Status: Ordered, Future Expires: 09/27/25 CONSULT TO SLEEP MEDICINE - ADULT CONSULT TO SLEEP MEDICINE - ADULT Order Status: Canceled, Future Expires: 09/27/25 BMI Readings from Last 2 Encounters: 09/27/24 : 21.79 kg/m 06/21/24 : 23.74 kg/m PAST MEDICAL HISTORY Diagnosis Date Anemia complicating , third trimester 08/05/2023 Depression with anxiety Pilonidal abscess 06/10/2023 06/10/23- was treated during . She was told that she may need to follow with general surgery. Abhay Bone APRN.CNM Pilonidal cyst 2022 The medical record was reviewed to determine if the proposed sleep study conforms to the AASM Practice Parameters for the Indications for Polysomnography and Related Procedures, or if the sleep study is indicated for other reasons. Indications for study: JUANITA suspected without comorbid medical or sleep disorders Sleep study to be performed: Home Sleep Apnea Test (HSAT) Special instructions: None-follow laboratory protocol Sarita Brady - Sleep Medicine Staff Note: I have read the above protocol, edited as needed, and agree to the plan. Zuly Mackay III, PhD 3:43 PM, 10/03/2024 September 29, 2024 An order has been received for Home Sleep Apnea Test (HSAT) from Rubin Haro a B. [facility] Staff. Visit prep complete. Comments :No The sleep study is scheduled for 10/05. Insurance: Payor: [facility] / Plan: [facility] / Product Type: Medicaid / Payer/Plan Subscr Sex Relation Sub. Ins. ID Effective Group Num 1. TIANNA MASON 1 Female Self [id number] 04/18[birth year]23 [facility] [address] Sulma Hanks documented in this encounter [facility] 10-17-2024 Note HNO ID: [id number] Author: ?, ?, ? Service: ? Author Type: ? Type: Progress Notes Filed: 10/21/2024 12:50 Note Text: Nomad # [id number], date shipped out 10-17-24 Fed Ex only Tracking mailout:[id number] Tracking return: [phone] [facility] 10-13-2024 History of Presen t illness Narrative Extended wear EKG patch monitor taught and applied. Patient verbalized understanding of monitor and return procedure. documented in this encounter [facility] 10-13-2024 Note HNO ID: [id number] Author: DAMIEN FERGUSON Asbestos Siding Mechanic Service: ? Author Type: Asbestos Siding Mechanic Type: Progress Notes Filed: 10/13/2024 08:38 Note Text: Extended wear EKG patch monitor taught and applied. Patient verbalized understanding of monitor and return procedure. [facility] 10-05-2024 Note HNO ID: [id number] Author: RUBIN BORREGO MD Service: ? Author Type: Physician Type: Progress Notes Filed: 10/05/2024 14:19 Note Text: Attending Note I discussed with resident on 09/27/2024. The patient was not examined by the attending. I reviewed the resident's note. I agree with the resident's assessment and plan unless otherwise noted. Signature: Rubin Borrego MD Date: 10/05/2024 Time: 2:18 PM [facility] 10-03-2024 Note HNO ID: [id number] Author: ZULY MACKAY III, PhD Service: ? Author Type: Physician Type: Progress Notes Filed: 10/21/2024 12:50 Note Text: October 03, 2024 Standing PSG Orders signed in the last 90 days None Future PSG Orders signed in the last 90 days Ordered Auth. provider HOME SLEEP APNEA TEST (HSAT) [[id number]] 09/27/24 Rubin Borrego MD Assoc. diagnoses: At risk for obstructive sleep apnea [Z91.89] Q: Indications: A: Obstructive sleep apnea Q: STOP-BANG conditions - Select All That Apply: A: SNORING that is loud or disruptive A2: TIREDNESS, fatigue or sleepiness during the day A3: OBSERVED sleep apnea Q: Current use of supplemental oxygen during sleep period?: A: No All Prior Sleep Studies (past 365 days) 09/27/2024 Sleep Studies PAP TITRATION PSG (CPAP, BIPAP, ASV) PAP TITRATION PSG (CPAP, BIPAP, ASV) Order Status: Canceled, Future Expires: 10/27/25 HOME SLEEP APNEA TEST (HSAT) HOME SLEEP APNEA TEST (HSAT) Order Status: Ordered, Future Expires: 09/27/25 CONSULT TO SLEEP MEDICINE - ADULT CONSULT TO SLEEP MEDICINE - ADULT Order Status: Canceled, Future Expires: 09/27/25 BMI Readings from Last 2 Encounters: 09/27/24 : 21.79 kg/m? 06/21/24 : 23.74 kg/m? PAST MEDICAL HISTORY Diagnosis Date Anemia complicating , third trimester 08/05/2023 Depression with anxiety Pilonidal abscess 06/10/2023 06/10/23- was treated during . She was told that she may need to follow with general surgery. Abhay Bone APRN.CNM Pilonidal cyst 2022 The medical record was reviewed to determine if the proposed sleep study conforms to the AASM Practice Parameters for the Indications for Polysomnography and Related Procedures, or if the sleep study is indicated for other reasons. Indications for study: JUANITA suspected without comorbid medical or sleep disorders Sleep study to be performed: Home Sleep Apnea Test (HSAT) Special instructions: None-follow laboratory protocol Sarita Brady - Sleep Medicine Staff Note: I have read the above protocol, edited as needed, and agree to the plan. Zuly Mackay III, PhD 3:43 PM, 10/03/2024 [facility] 09-29-2024 Note HNO ID: [id number] Author: ?, ?, ? Service: ? Author Type: ? Type: Progress Notes Filed: 10/21/2024 12:50 Note Text: September 29, 2024 An order has been received for Home Sleep Apnea Test (HSAT) from Rubin Haro a B. [facility] Staff. Visit prep complete. Comments :No The sleep study is scheduled for 10/05. Insurance: Payor: [employer] [place] MEDICA[place] / Plan: [facility] / Product Type: Medicaid / Payer/Plan Subscr Sex Relation Sub. Ins. ID Effective Group Num 1. CARESOTIANNA SORIA 03 Female Self [id number] [birth year] CSOHIO [address] Sulma Hanks [facility] 09-27-2024 Note HNO ID: [id number] Author: KELLEY CHEEMA DO Service: ? Author Type: Resident Type: Progress Notes Filed: 10/03/2024 13:46 Note Text: [facility] Kelley Cheema DO ASSESSMENT/PLAN: 1. Palpitations - ICD9: 785.1, ICD10: R00.2 (primary diagnosis) - COMPREHENSIVE METABOLIC PANEL - THYROID STIMULATING HORMONE - HOLTER MONITOR 72 HOUR - COMPLETE BLOOD COUNT AND DIFFERENTIAL 2. Irritable bowel syndrome without diarrhea - ICD9: 564.1, ICD10: K58.9 - HELICOBACTER PYLORI ANTIGEN BY EIA, STOOL - SIMETHICONE 80 MG CHEWABLE TABLET - Discussed FODMAP diet with patient 3. At risk for obstructive sleep apnea - ICD9: V49.89, ICD10: Z91.89 - HOME SLEEP APNEA TEST (HSAT) Kelley Cheema DO HPI: Tianna Louis is a 19 year old female with PMHx: depression Anxiety Pilonidal cyst Unspecified anemia Here today for evaluation of her palpitations, weight loss, and possible JUANITA. Palpitations: Intermittently experiencing fluttering in her chest for ~ 11 years Most recently, symptoms awoke patient from sleep on 09/25 Exacerbated by high stress levels/anxiety Resolves spontaneously Occasionally has associated shortness of breath, but denies chest pain or tightness during these episodes Has been evaluated several times in the past for this issue, no problem ever identified on blood work or EKG Weight loss: 11 lbs over ~ 3 months. Associated with decreased appetite, epigastric pain while eating, and increased gas and bloating after meals. Intermittently nauseous, rarely vomiting Denies any recent illnesses or changes to medication/diet JUANITA Was reportedly told by anesthesiologist after her cesarian section that she is high risk for JUANITA STOP BANG Questionnaire 1. Snoring Do you snore loudly (louder than talking or loud enough to be heard through closed doors)? YES 2. Tired Do you often feel tired, fatigued, or sleepy during daytime? YES 3. Observed Has anyone observed you stop breathing during your sleep? YES 4. Blood Pressure Do you have or are you being treated for high blood pressure? NO 5. BMI BMI more than 35 kg/m2? NO 6. Age Age over 50 yr old? NO 7. Neck circumference Neck circumference greater than 40 cm? NO 8. Gender Gender male? NO PAST MEDICAL HISTORY Diagnosis Date Anemia complicating , third trimester 08/05/2023 Depression with anxiety Pilonidal abscess 06/10/2023 06/10/23- was treated during . She was told that she may need to follow with general surgery. Abhay Bone APRN.CNM Pilonidal cyst 2022 PAST SURGICAL HISTORY Procedure Laterality Date APPENDECTOMY patient was in 6th grade PAST SURGICAL HISTORY OF Left 04/07/2022 Benign Cyst Removal from Labia Social History Tobacco Use Smoking status: Never Smokeless tobacco: Never Tobacco comments: vapes Vaping Use Vaping status: current everyday user Substance Use Topics Alcohol use: Not Currently Drug use: Yes Types: Marijuana FAMILY HISTORY Problem Relation Age of Onset Breast Cancer Maternal Grandmother possible Endometrial Cancer as well PAIN EVALUATION 09/27/2024 0820 Pain Level: 0 when she eats this goes up to an 8 Pain Location: Abdomen-Mid Lower Description: Bloating;Cramping;Sharp sharp pains when having BM Duration Amount of Time: 1 Duration Units: Years Frequency: Intermittent ALLERGIES Allergen Reactions Bactrim [Sulfametho* Vomiting Current Outpatient Medications Medication Sig simethicone, chewable (MYLICON) 80 mg chewable tablet Take 1 tablet by mouth every 6 hours as needed. escitalopram oxalate (LEXAPRO) 5 mg tablet Take 1 tablet by mouth once daily. No current facility-administered medications for this visit. I have confirmed and edited as necessary the chief complaint, medications, past medical, family and social histories. Review of Systems Constitutional: Positive for fatigue and unexpected weight change. Negative for fever. HENT: Negative for congestion, rhinorrhea and sore throat. Eyes: Negative for pain, redness and itching. Respiratory: Positive for shortness of breath. Negative for wheezing. Cardiovascular: Positive for palpitations. Negative for chest pain. Gastrointestinal: Positive for abdominal pain and nausea. Negative for constipation and diarrhea. Endocrine: Negative for heat intolerance. Genitourinary: Negative for dysuria, hematuria and urgency. Musculoskeletal: Negative for arthralgias and myalgias. Skin: Negative for rash and wound. Neurological: Negative for dizziness, tremors, weakness, light-headedness and headaches. Psychiatric/Behavioral: Negative for agitation. The patient is nervous/anxious. OBJECTIVE: BP 106/71 (BP Site: Left Arm, BP Position: Sitting) Pulse 89 Temp 37 ?C (98.6 ?F) Wt 55.8 kg (123 lb) LMP 11/17/2022 (Approximate) SpO2 98% BMI 21.79 kg/m? Physical Exam Constitutional: General: (more content not included)... [facility] 09-27-2024 History of Presen t illness Narrative Images from the original note were not included. [facility] Kelley Cheema DO ASSESSMENT/PLAN: 1. Palpitations - ICD9: 785.1, ICD10: R00.2 (primary diagnosis) - COMPREHENSIVE METABOLIC PANEL - THYROID STIMULATING HORMONE - HOLTER MONITOR 72 HOUR - COMPLETE BLOOD COUNT AND DIFFERENTIAL 2. Irritable bowel syndrome without diarrhea - ICD9: 564.1, ICD10: K58.9 - HELICOBACTER PYLORI ANTIGEN BY EIA, STOOL - SIMETHICONE 80 MG CHEWABLE TABLET - Discussed FODMAP diet with patient 3. At risk for obstructive sleep apnea - ICD9: V49.89, ICD10: Z91.89 - HOME SLEEP APNEA TEST (HSAT) Kelley Cheema DO HPI: Tianna Louis is a 19 year old female with PMHx: depression Anxiety Pilonidal cyst Unspecified anemia Here today for evaluation of her palpitations, weight loss, and possible JUANITA. Palpitations: Intermittently experiencing fluttering in her chest for ~ 11 years Most recently, symptoms awoke patient from sleep on 09/25 Exacerbated by high stress levels/anxiety Resolves spontaneously Occasionally has associated shortness of breath, but denies chest pain or tightness during these episodes Has been evaluated several times in the past for this issue, no problem ever identified on blood work or EKG Weight loss: 11 lbs over ~ 3 months. Associated with decreased appetite, epigastric pain while eating, and increased gas and bloating after meals. Intermittently nauseous, rarely vomiting Denies any recent illnesses or changes to medication/diet JUANITA Was reportedly told by anesthesiologist after her cesarian section that she is high risk for JUANITA STOP BANG Questionnaire 1. Snoring Do you snore loudly (louder than talking or loud enough to be heard through closed doors)? YES 2. Tired Do you often feel tired, fatigued, or sleepy during daytime? YES 3. Observed Has anyone observed you stop breathing during your sleep? YES 4. Blood Pressure Do you have or are you being treated for high blood pressure? NO 5. BMI BMI more than 35 kg/m2? NO 6. Age Age over 50 yr old? NO 7. Neck circumference Neck circumference greater than 40 cm? NO 8. Gender Gender male? NO PAST MEDICAL HISTORY Diagnosis Date Anemia complicating , third trimester 08/05/2023 Depression with anxiety Pilonidal abscess 06/10/2023 06/10/23- was treated during . She was told that she may need to follow with general surgery. Abhay Bone APRN.CNM Pilonidal cyst 2022 PAST SURGICAL HISTORY Procedure Laterality Date APPENDECTOMY patient was in 6th grade PAST SURGICAL HISTORY OF Left 04/07/2022 Benign Cyst Removal from Labia Social History Tobacco Use Smoking status: Never Smokeless tobacco: Never Tobacco comments: vapes Vaping Use Vaping status: current everyday user Substance Use Topics Alcohol use: Not Currently Drug use: Yes Types: Marijuana FAMILY HISTORY Problem Relation Age of Onset Breast Cancer Maternal Grandmother possible Endometrial Cancer as well PAIN EVALUATION 09/27/2024 0820 Pain Level: 0 when she eats this goes up to an 8 Pain Location: Abdomen-Mid Lower Description: Bloating;Cramping;Sharp sharp pains when having BM Duration Amount of Time: 1 Duration Units: Years Frequency: Intermittent ALLERGIES Allergen Reactions Bactrim [Sulfametho* Vomiting Current Outpatient Medications Medication Sig simethicone, chewable (MYLICON) 80 mg chewable tablet Take 1 tablet by mouth every 6 hours as needed. escitalopram oxalate (LEXAPRO) 5 mg tablet Take 1 tablet by mouth once daily. No current facility-administered medications for this visit. I have confirmed and edited as necessary the chief complaint, medications, past medical, family and social histories. Review of Systems Constitutional: Positive for fatigue and unexpected weight change. Negative for fever. HENT: Negative for congestion, rhinorrhea and sore throat. Eyes: Negative for pain, redness and itching. Respiratory: Positive for shortness of breath. Negative for wheezing. Cardiovascular: Positive for palpitations. Negative for chest pain. Gastrointestinal: Positive for abdominal pain and nausea. Negative for constipation and diarrhea. Endocrine: Negative for heat intolerance. Genitourinary: Negative for dysuria, hematuria and urgency. Musculoskeletal: Negative for arthralgias and myalgias. Skin: Negative for rash and wound. Neurological: Negative for dizziness, tremors, weakness, light-headedness and headaches. Psychiatric/Behavioral: Negative for agitation. The patient is nervous/anxious. OBJECTIVE: BP 106/71 (BP Site: Left Arm, BP Position: Sitting) Pulse 89 Temp 37 C (98.6 F) Wt 55.8 kg (123 lb) LMP 11/17/2022 (Approximate) SpO2 98% BMI 21.79 kg/m Physical Exam Constitutional: General: She is not in acute distress. Appearance: She is not ill-appearing. HENT: Head: Normocephalic and atraumatic. Right Ear: External ear normal. Left Ear: External ear normal. Mouth/Throat: Mouth: Mucous membranes are moist. Pharynx: Oropharynx is clear. No oropharyngeal exudate or posterior oropharyngeal erythema. Eyes: General: No scleral icterus. Extraocular Movements: Extraocular movements intact. Pupils: Pupils are equal, round, and reactive to light. Cardiovascular: Rate and Rhythm: Normal rate and regular rhythm. Pulses: Normal pulses. Heart sounds: Normal heart sounds. No murmur heard. Pulmonary: Effort: Pulmonary effort is normal. No respiratory distress. Breath sounds: Normal breath sounds. No wheezing. Abdominal: General: Bowel sounds are normal. There is no distension. Palpations: Abdomen is soft. There is no mass. Tenderness: There is no abdominal tenderness. Musculoskeletal: Cervical back: No tenderness. Right lower leg: No edema. Left lower leg: No edema. Skin: General: Skin is warm and dry. Capillary Refill: Capillary refill takes less than 2 seconds. Coloration: Skin is not jaundiced. Neurological: General: No focal deficit present. Mental Status: She is alert and oriented to person, place, and time. Psychiatric: Mood and Affect: Mood normal. Behavior: Behavior normal. Thought Content: Thought content normal. Judgment: Judgment normal. Return if symptoms worsen or fail to improve. Discussed the above with the patient and my preceptor using shared decision-making. The patient is in agreement with the diagnostic and treatment plans. Provider: Kelley Cheema DO Signed on: September 27, 2024 8:37 AM documented in this encounter [facility] 06-21-2024 Instructions Mel Gipson MA - 06/21/2024 9:58 AM EDT Patient instructions following Bartholin's gland incision and drainage It is normal to have some pain and discomfort following incision and drainage. You may take [id number] medication such as ibuprofen (Motrin) or acetaminophen (Tylenol), following package instructions for dosage. You can expect to see some bleeding initially and continued drainage of the cyst for the next 1-2 weeks. If a Word catheter was inflated and left in place, your doctor will have you schedule an appointment for removal. If the catheter falls out on its own, let your doctor know. Do not try to reinsert it. You may be given antibiotics if your doctor thinks the cyst is infected. If so, it is important to complete the entire course of antibiotics even if your symptoms resolve before you have finished all the pills. You should avoid vigorous exercise and not put anything in the vagina for 2 weeks. Do not douche or use creams/powders in the affected area unless instructed by your physician. You should call your doctor if you experience any of the following: Enlarging cyst Spreading redness in the skin Worsening pain Fever or chills Excessive bleeding Other concerning symptoms documented in this encounter [facility] 06-21-2024 Note HNO ID: [id number] Author: MELISSA BIRCH APRN.CNP Service: ? Author Type: Nurse Practitioner Type: Progress Notes Filed: 06/21/2024 12:03 Note Text: Test Bore Helper offered: Patient declines. HPI: Tianna Louis is a 19 year old female Chief Comlaint: swollen labia The patient presents with abscess formation on left labia and symptoms have been present for 1 days. Associated symptoms include pain and subcutaneous mass. History of Diabetes? No PAST MEDICAL HISTORY 08/05/2023: Anemia complicating , third trimester No date: Depression with anxiety 06/10/2023: Pilonidal abscess Comment: 06/10/23- was treated during . She was told that she may need to follow with general surgery. Abhay Bone APRN.[facility] 2022: Pilonidal cyst PAST SURGICAL HISTORY No date: APPENDECTOMY Comment: patient was in 6th grade 04/07/2022: PAST SURGICAL HISTORY OF; Left Comment: Benign Cyst Removal from Labia Current Outpatient Medications Medication Sig cephALEXin (KEFLEX) 500 mg capsule Take 1 capsule by mouth four times daily for 5 days. escitalopram oxalate (LEXAPRO) 5 mg tablet Take 1 tablet by mouth once daily. No current facility-administered medications for this visit. ALLERGIES Allergen Reactions Bactrim [Sulfametho* Vomiting Social History Tobacco Use Smoking status: Never Smokeless tobacco: Never Vaping Use Vaping status: current everyday user Substance Use Topics Alcohol use: Not Currently Drug use: Yes Types: Marijuana INFORMED CONSENT The risks, benefits and anticipated outcomes of the procedure, the risks and benefits of the alternatives to the procedure and the roles and tasks of the personnel to be involved were discussed with the patient and the patient consents to the procedure and agrees to proceed. I verify that I personally obtained Tianna Louis's consent. Melissa Birch APRN.CNP June 21, 2024 12:03 PM Dept of OB/GYNECOLOGY UNIVERSAL PROTOCOL / SAFETY CHECKLIST Procedure to be Performed: I AND D of left labia Sign In: A Moment of CARE was completed. Personnel directly involved with the procedure wore the appropriate PPE (Personal Protective Equipment). Patient/Surrogate Stated/Verified: PATIENT VERIFIED(optional for EMERGENT procedures): Patient name, Date of , Relevant allergies, and The intended procedure Time Out Communication: Intended patient and procedure match the source documents. Consent documented and matches the intended procedure. Sign Out: SIGN OUT (optional for EMERGENT procedures): No specimen collected. No instruments, equipment or retained foreign bodies applicable. Post-procedure follow-up management communicated and Plan of Care Visit completed when applicable. Melissa Birch APRN.RELIEF DRILLER IMPRESSION: Right labia abscess PLAN: After informed consent was obtained, using Betadine for cleansing and pt decline anesthetic, with sterile technique, an incision was made into the abscess cavity which was then drained Culture was not obtained. Procedure was well tolerated. Dressing was applied and wound care instructions were provided. May remove packing in 24 hours and continue frequent warm tub soaks until abscess resolves. Medication(s) given today: Yes: Keflex QID x 5 days Return to clinic as needed for pain, increased swelling, or fever. Melissa Birch APRN.RELIEF DRILLER [facility] 06-21-2024 History of Presen t illness Narrative Test Bore Helper offered: Patient declines. HPI: Tianna Louis is a 19 year old female Chief Comlaint: swollen labia The patient presents with abscess formation on left labia and symptoms have been present for 1 days. Associated symptoms include pain and subcutaneous mass. History of Diabetes? No PAST MEDICAL HISTORY 08/05/2023: Anemia complicating , third trimester No date: Depression with anxiety 06/10/2023: Pilonidal abscess Comment: 06/10/23- was treated during . She was told that she may need to follow with general surgery. Abhay Bone APRN.[facility] 2022: Pilonidal cyst PAST SURGICAL HISTORY No date: APPENDECTOMY Comment: patient was in 6th grade 04/07/2022: PAST SURGICAL HISTORY OF; Left Comment: Benign Cyst Removal from Labia Current Outpatient Medications Medication Sig cephALEXin (KEFLEX) 500 mg capsule Take 1 capsule by mouth four times daily for 5 days. escitalopram oxalate (LEXAPRO) 5 mg tablet Take 1 tablet by mouth once daily. No current facility-administered medications for this visit. ALLERGIES Allergen Reactions Bactrim [Sulfametho* Vomiting Social History Tobacco Use Smoking status: Never Smokeless tobacco: Never Vaping Use Vaping status: current everyday user Substance Use Topics Alcohol use: Not Currently Drug use: Yes Types: Marijuana INFORMED CONSENT The risks, benefits and anticipated outcomes of the procedure, the risks and benefits of the alternatives to the procedure and the roles and tasks of the personnel to be involved were discussed with the patient and the patient consents to the procedure and agrees to proceed. I verify that I personally obtained Tianna Louis's consent. Melissa Birch APRN.CNP June 21, 2024 12:03 PM Dept of OB/GYNECOLOGY UNIVERSAL PROTOCOL / SAFETY CHECKLIST Procedure to be Performed: I & D of left labia Sign In: A Moment of CARE was completed. Personnel directly involved with the procedure wore the appropriate PPE (Personal Protective Equipment). Patient/Surrogate Stated/Verified: PATIENT VERIFIED(optional for EMERGENT procedures): Patient name, Date of , Relevant allergies, and The intended procedure Time Out Communication: Intended patient and procedure match the source documents. Consent documented and matches the intended procedure. Sign Out: SIGN OUT (optional for EMERGENT procedures): No specimen collected. No instruments, equipment or retained foreign bodies applicable. Post-procedure follow-up management communicated and Plan of Care Visit completed when applicable. Melissa Birch APRN.CNP IMPRESSION: Right labia abscess PLAN: After informed consent was obtained, using Betadine for cleansing and pt decline anesthetic, with sterile technique, an incision was made into the abscess cavity which was then drained Culture was not obtained. Procedure was well tolerated. Dressing was applied and wound care instructions were provided. May remove packing in 24 hours and continue frequent warm tub soaks until abscess resolves. Medication(s) given today: Yes: Keflex QID x 5 days Return to clinic as needed for pain, increased swelling, or fever. Melissa Birch APRN.CNP documented in this encounter [facility] 12-02-2023 Miscellaneous Notes Called pt lvm to schedule a follow up visit. documented in this encounter [facility] 09-28-2023 Instructions Claudia Stone APRN.CNM - 09/28/2023 3:41 PM EST Here are some links for wonderful Providers here in the community and surrounding areas. Do not hesitate to contact their offices, many are offering virtual visits during this time. 0-661-7-LJAT3TYIZ - [place] Maternal Mental Health Hotline If you are in suicidal crisis, please call or text 4-495-585-TALK ( ) or visit the National Suicide Prevention Lifeline website. m[facility]b.[facility].gov [facility] Psychology, Psychiatry, Counseling Connect with therapist/ can do virtual visits [phone] Referral to the [facility] To schedule an appointment, please call the [place] for Behavioral Health Appointment Line: [phone] option 1 Counseling Center - [address] [place] [address] [facility] [address] [place] [address] [facility] [address] [place] [address] [facility] [address] [place] [id number] Sung Ruiz MD [address] [place] [address] [facility] [address] [facility], [address] [place] [address] [facility] [address] [place] [address] [facility] Services [place] / [place] [phone]/ [phone] Ksenia Gordillo [address] [facility] [phone] [facility] [place] / [place] [phone] Behavioral [facility] services of [facility] [address] [place] [address]/ [facility] [phone] Meena Alatrore, KEVAN, CRISELDA Del Castillomp and [facility] Therapy Workshops, telehealth and at home visits. [phone] Humanistic counseling center [address] [facility], [place], [place], [facility], [place], [facility], [place], [place], [place], [place], [place], [place], [place], [place], [place] ,[place], [place], [place],[facility], [place], [place], [facility] [place], [place], [place] www.TadpolescoKlone Laber.[facility] [phone] Psychotherapy resources outside of [facility] are listed below [facility] Psychotherapy Web: https://www.[employer]/ Support International Online Provider Directory https://Krush/ [facility] https://Edusoft/ Partners for Behavioral Health and Wellness Web: https://Mobile Complete/ ElationEMR Effective Living Web: https://SteadMed Medical / LifeStance Web: https://W[facility]kin Health/location/ [facility]/[place]/ [facility] Web: https://www.Mappgerald [facility]/ [facility] Web: https://Semetric.org/ Recovery Resources Mental health and substance abuse help Web: https://www.FindersfeesGlance Labs & RESOURCES Support International Direct peer support and connection to professional resources Non-Emergency Helpline Phone: / Text: [phone] Web: https://www..net/ Online Provider Directory: https://Krush/ Online Support Meetings: https://www..net/get-h elp/byb-omfpvi-uspsurw-meetings/ JOHN Baby and Insulation [employer]ineman Services Web: https://wwwLetsgofordinner/ Equ[employer] Expert information on medication use during and Text: [phone] Web: https://Lifeline Biote[employer]ologies/ NATIONAL REGISTRY FOR PSYCHIATRIC MEDICATIONS Currently studying the safety of antidepressants, ADHD medications and atypical antipsychotics taken during TO PARTICIPATE CALL TOLL-FREE: Web: https://womenentalhealth.org/r esearch/pregnancyregistry/ Support Groups: [facility]- Follow on facebook Baby Bistro support group led by [facility] department Resilient Mamas - Support Group [facility].org The POEM support group [phone] Www.poemonline.org Follow on facebook - PODELISA ochoa chapter Online support meetings PSI https://www..net/get-h elp/xqs-ltubpn-ulzknfb-meetings/ [facility] mara and me virtual support group 11:30-1pm Support for mothers and new babies and toddlers [place] childbirth education: Childbirth @cc.org or call [phone] CRISIS: CRISIS HOTLINE [phone], 911 or go to the nearest . [facility] [phone] / [facility] [phone] [email or web address] Crisis text line text the word HOME to [id number] [facility] Counseling [address] [facility] [address] www.Riskalyze rBuna Senior clinical counseling [address] [address] www.ParkingCarma [phone] Holding [facility] psychotherapy Abeba Davis COMMUNICATIONS ADMINISTRATOR JOB COST ESTIMATOR-S [address] [facility] www.Cirrus Insight [phone]/ [place] [phone] They all offer virtual. All work with trauma Support groups Online support meetings PSI https://www..net/get-h elp/csg-shwlxg-qcloehw-meetings/ Here are the support groups they offer: Support of parents of 1 to 4 years old children POEM ( Outreach and Encouragement for Moms) offers free support for mothers experiencing depression, anxiety, and other mood and anxiety disorders. Masks are recommended but not required. No pre-registration required. Babies in arms welcome. meetings now take place on the and Thursday of each month Location: [facility] [address] [place] [address] [address] [id number] Room 122 (library room) 7-8:00 p.m. When you enter the [facility] parking lot off of [address] the entrance door closest to our meeting room is on the front of the building toward the right. For those who are more comfortable with a virtual platform, [employer] offers online support group options several days of the week. To register for an online group or to find out more about POEM, website at: https://XMOSaohio.org/get-help/[facility] centerswyvm-nirxex-fnlkzd/poem-service s/ offer a confidential helpline: private Facebook group is called PODELISA - Don Alvarado Here are the groups they offer: Traumatic childbirth resources: Http://pattch.org/ https://www.Janus BiotherapeuticsbriannaClose.[email or web address]/ documented in this encounter [facility] 09-28-2023 History of Presen t illness Narrative VISIT Tianna Louis is a 18 year old year old here for visit. Delivery Summary: Date: 08/15/2023 Sex: M Name: Miguel Weight: 7# 7oz Outcome: PCS Details: distress Anesthesia: Epidural Delivered by: KJ Perineal repair: NA ROS/ Recovery: Feeding: Bottle feeding problems: None Menses since delivery: None Menstrual pattern prior to : Irregular periods [place] since delivery: Resumed Depression: denies symptoms of depression. 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 OB Depression and Anxiety Screening- This [...] harming myself has occurred to me. Never [place] Depression Scale Total 15 Feeling nervous, anxious [...] may need to follow with general surgery. Abhay Bone APRN.ALLAN Pilonidal cyst 2022 PAST SURGICAL [...] external genitalia normal, normal Bartholin's glands, urethra, [place]'s glands, no vulvar lesions, no cervical lesions, [...] Claudia Stone APRN.CNM documented in this encounter [facility] 09-14-2023 Instructions Baljit Harvey MD - [...] or provider preference: Central/Multiple Locations: [facility]: [address] [facility] - [phone] Elijah Janeth: [address] [place] - [phone] [facility]: [address] [facility] - [phone] [facility]: [address]00 [facility] - [phone] [place] [facility]: 4500 [facility] - [phone] (Medicaid only) [facility]: Multiple Locations - [phone] [facility] Department of Psychiatry & Psychology at [phone] (select Option 1) or [phone] (select Option 1) Connections: Multiple Locations - [phone] (Medicaid only) [facility] - Multiple Locations - [phone] (Medicaid only) [facility], [facility] Multiple Locations - [phone] Psychological and Behavioral Consultants: Multiple Locations - [phone] Recovery Resources: Multiple Locations - [phone] [facility] Locations: [facility]: [address] [facility] - [phone] [facility]: [address] [facility]. [place] - [phone] Ana Asif PhD and Associates: [address] [facility] - [phone] [place] [id number] [facility] [address] [place] - [phone] Cristina Pierce MD: [address] [facility] - [phone] [facility] [address] , [place] - [phone] [facility]: [address] [facility], [place] - [phone] [facility] [place], [address] [place] [address] - [phone] [place] Locations: Natalie Dos Santos MD [facility] Inc: [address], [address] - [phone] Ana Asif PhD [facility] Associates: [address] [facility] - [phone] [facility]: [address] [facility] [phone] [facility], Inc.: [address] [facility] - [phone] [facility], [address] [facility], [facility] 320[facility] - [phone] [facility], [address] - [phone] [facility]: [address] [place] - [phone] [place] Locations: [facility] of [facility] L [facility] - [phone] [facility] Services L Stephen , [facility] - [phone] [facility] Psychiatry: 1 [place] [facility] - [phone] [facility]: [address] [facility] [place] - [phone] [facility] - 256 [facility] - [phone] [place] Locations: [facility] - Alec Hanks MD Psychiatry, Sleep Medicine - 24[address] [facility] [phone] or [phone] Neyda Eastman MD - 2422 [facility] [phone] Psychological and Behavioral Consultants - LYNDA Kwong, DCSW - [address] [phone] [facility] - 28[address] [facility] [phone] [facility] (NO Commercial Insurance accepted) - 47[address] [facility] [phone] [place] [facility] - Kailash James, [facility], [facility] - 29 [facility] [phone] LYNDA Cordoba - 240[address] [facility] [phone] Rupali Damon, [facility] - [address] [phone] Jonathan Diego, PhD - [address] [place] [phone] LYNDA Valdivia - [address] [phone] Andra Paiz, [facility], LIC[facility] (No Medicare, [place], United) - 5[address] [facility] Gavin, NMonica Drums - [phone] CHENG LingW - [address], [place] - [phone] Kvngsuze Kurtz, [facility] - [address] [facility] [phone] For additional resources and information please call or review the website: [email or web address].[address] [place] [address].org/ If you are feeling suicidal, please call [employer], , or the [employer] Suicide Hotline , Call 535, or go to your nearest emergency room [...] community. Before you quit all at once (cold turkey), setting a plan will help: Pick a [...] the section below, What Happens When You Quit.) Tell yourself you are a great person [...] taking a cigarette break. Don't carry a jewelry bearing maker, matches or cigarettes. Go to places that [...] back on smoking or switching to a jewelry bearing maker brand. Stage four: Action - The person [...] quitting. Don't give up! For more information [employer] [phone] [employer] [employer] [phone] [employer] [employer] [phone] References: COPD Foundation. Understanding COPD. Living With COPD. Quitting Smoking Accessed 08/21/2014. [place] [employer]. Stop Smoking Accessed 08/21/2014. Copyright 2279-3249 The [facility]. All rights reserved This information is provided by the [facility] and is not intended to replace the medical advice of your doctor or health care provider. Please consult your health care provider for advice about a specific medical condition. For additional health information, please contact the Center for Consumer Health Information at the [facility] or toll-free extension [phone]. If you prefer, you may visit www.[email or web address].[email or web address]/health/ or www.[facility].org. This document was last reviewed on: 2017 index#5721 An Overview of Anxiety Disorders What is [...] of Mental Disorders (DSM-5), published by the [place] [employer]. How are anxiety disorders treated? [...] your doctor or pharmacist before taking any hqnt-nul-kskxxsa medicines or herbal remedies. Many contain chemicals that can increase anxiety symptoms. Exercise daily and eat a healthy, balanced diet. Seek counseling and support after a traumatic or disturbing experience. References [place] [employer]. Anxiety Accessed 07/20/2014. [place] Psychiatric Association. DSM Accessed 07/20/2014. Copyright 9305-3094 [facility]. All rights reserved This information is provided by the [facility] and is not intended to replace the medical advice of your doctor or health care provider. Please consult your health care provider for advice about a specific medical condition. For additional health information, please contact the Center for Consumer Health Information at the [facility] or toll-free extension [phone]. If you prefer, you may visit www.[email or web address].[email or web address]/health/ or www.[email or web address].org. 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 Please consult your health care provider for advice about a specific medical condition. For additional written health information, please contact the Health Information Center at the [facility] or toll-free extension [phone] or visit www.[email or web address]/health/. This document was last reviewed on: 2002) documented in this encounter [facility] 09-14-2023 History of Presen t illness Narrative Images from the original note were not included. [facility] Baljit Harvey MD ASSESSMENT/PLAN: 1. Episode of recurrent major depressive disorder, unspecified depression episode severity (HCC) - ICD9: 296.30, ICD10: F33.9 (primary diagnosis) Will benef - CONSULT TO [facility] [employer] - ESCITALOPRAM 5 MG TABLET 2. Tachycardia - ICD9: 785.0, ICD10: R00.0 Patient tachycardia likely anxiety though given reported history will benefit from EKG as I have not been able to see a prior - ECG COMPLETE 3. Tiredness - ICD9: 780.79, ICD10: R53.83 Likely attributed to depression 4. Anxiety - ICD9: 300.00, ICD10: F41.9 - CONSULT TO [facility] AD[facility] [employer] - ESCITALOPRAM 5 MG TABLET 5. [...] 325 MG (65 MG IRON) TABLET SUBJECTIVE: Tianna Louis is a 18 year old female [...] baby at this time. Patient follows with learning administrator for post- care. Patient reports that she [...] may need to follow with general surgery. Abhay Bone APRN.CNM Pilonidal cyst 2022 PAST SURGICAL [...] F) Resp 18 Ht 160 cm (5' 3) Wt 61.2 kg (135 lb) LMP 11/17/2022 [...] I recommended starting medication and behavioral health clinical social work therapist consult to help facilitate this treatment. Return in about 6 weeks (around 10/26/2023) for Follow up depression, ECG for tachycardia. Discussed the above with the patient and my preceptor using shared decision-making. The patient is in agreement with the diagnostic and treatment plans. Provider: Baljit Harvey MD Signed on: September 14, 2023 4:24 PM documented in this encounter [facility] 08-31-2023 History of Presen t illness Narrative EARLY VISIT Tianna Louis is a 18 year old here [...] harming myself has occurred to me. Never [place] Depression Scale Total 0 Feeling nervous, anxious [...] issues Sleep: no sleep concerns, feels rested [place] since delivery: Not resumed Emotional support: Yes [...] attack with hormonal contraception. Reviewed warning signs ACHES. Discussed stopping control 4 weeks prior to [...] Claudia Stone APRN.CNM documented in this encounter [facility] 08-19-2023 History of Presen t illness Narrative Referred to Blood Management for anemia in on 08/05/2023 - delivered on 08/07/2023. No treatment or evaluation done. documented in this encounter [facility] 08-17-2023 Miscellaneous Notes Patient delivered 08/07/23. Kiki Rodrigues RN ----- Message from Abhay Bone APRN.CNM sent at 08/07/2023 3:15 PM EDT ----- IRON STUDIES COMPLETED. Please assist with scheduling appointment with blood management. Abhay Bone APRN.CNM documented in this encounter [facility] 08-17-2023 History of Presen t illness Narrative Patient delivered [facility] on 08/15/23 per Camden Rivera MD. See OB Outcome note. Radha Khan RN documented in this encounter [facility] 08-17-2023 Discharge summary Note Date/Time August 17, 2023 4:54am [facility] Medical Records Department [address] [place] [address] Discharge Summary 08/17/23 0452 MR#: [id number] Acct: [id number] Name: TIANNA LOUIS Rep #:[id number] 3 : 2005 18 From: Claudia ALNG PCP: Care Physician,No Primary Status :ADM IN Location: ZN326-0 Providers Date of Admission: 08/15/23 Primary Care Physician: No Primary Care Phys Reason For Visit: PRIMARY Diagnosis Discharge Diagnosis (1) Lactating mother: Status: Acute Code(s): Z39.1 - Encounter for care and examination of lactating mother (2) Status post primary low transverse section: Status: Acute Code(s): Z98.891 - History of uterine scar from previous surgery Plan 1) POD #2 LTCS 2) 3) Vitals stable 4) I&O 5) Pain management 6) D/C home today, follow up in 2 weeks and 6 weeks PP Medications at Discharge Home Medications acetaminophen 500 mg tablet 1,000 mg (2 x 500 mg) PO Q6H #0 tabs 08/17/23 ibuprofen 600 mg tablet 600 mg PO Q6H #0 tabs 08/17/23 oxycodone 5 mg tablet 5 - 10 mg (1 - 2 x 5 mg) PO Q4H PRN PRN Pain Score 4-10 7 days #10 tabs 08/17/23 sennosides 8.6 mg-docusate sodium 50 mg tablet (Stool Softener-Stimulant Laxative) 1 - 2 tab PO DAILY #30 tabs 08/17/23 Hospital Course Summary of Care Provided Minutes Spent on Discharge: 15 Hospital Course: Presented to hospital in active labor. Progressed to complete dilation and pushing efforts. intolerance and remote from delivery. Primary LTCS completed by . course with acute blood loss anemia and iron infusion given. Remainder of course uncomplicated. Discharge home on POD #2 Weight / BMI Weight Weight: 161 lb 2.526 oz Body Mass Index (BMI) 28.5 ABG / Lab / Microbiology Data 08/16/23 04:15 Microbiology: Microbiology 08/15/23 05:00 Interface Orders Chlamydia trachomatis (PCR) - Final 08/15/23 05:00 Interface Orders Neisseria gonorrhoeae (PCR) - Final D/C Instructions Discharge Diet: No restrictions May resume sexual activity in: 6 weeks Weight Bearing Status: Full weight bearing Call your doctor if your incision/area has: Continuous Slow Oozing, Sudden Increased Bleeding, Increased Pain/ Swelling, Increased Redness, Foul Smelling Discharge and Swelling at the incision site Call your doctor if you observe: Fever of 101 or Higher, Inability to urinate, Using more than 1 pad per hour, Shortness of breath, Dizziness, Chest pain, Calfdiscomfort and Uncontrolled pain Suture Line Care: Avoid Pulling/Pushing Cleanse incision/area with: Soap & Water Please Follow Up With: Claudia Stone CNM When: 2 weeks for virtual visit and 6 weeks for PP visit Meaningful Use Info Meaningful Use Diagnoses (Choose all that apply): None applicable Discharge Plan Admission Admit Date/Time: 08/15/23 04:38 Primary Reason for Your Visit: Section Attending Provider: Camden Rivera Primary Care Provider: Care Physician,Leigh Primary Discharge Orders/Prescriptions Prescriptions: New acetaminophen 500 mg Tablet 1,000 mg PO Q6H Qty: 0 0RF ibuprofen 600 mg Tablet 600 mg PO Q6H Qty: 0 0RF oxycodone 5 mg Tablet 5 - 10 mg PO Q4H PRN PRN (Reason: Pain Score 4-10) 7 Days Qty: 10 0RF sennosides-docusate sodium [Stool Softener-Stimulant Laxat] 8.6-50 mg Tablet 1 - 2 tab PO DAILY Qty: 30 0RF Referrals / Follow Up: Care Physician,Leigh Primary [Primary Care Provider] - Disposition Disposition (needs filled in before D/C Order can be placed): Home, Self Care 08/17/23 3194 <Electronically signed by Claudia Stone CNM> Cosigner Signature (if applicable): CC: ALLAN Stone; No Primary Care Physician~ Signed [facility] Work Phone: 1(583) 114-783510-30-2023 Discharge summary Author Claudia Stone [facility] August 17, 2023 4:52am Note Date/Time August 17, 2023 4 :49am [facility] Medical Records Department [address] [place] [address] Instructions for Home/Discharge Instructions 08/17/23 0447 MR#: [id number] Acct: [id number] Name: TIANNA LOUIS Rep #:[id number] 2 : 2005 18 From: Claudia LANG PCP: Care Physician,No Primary Status :ADM IN Discharge Instructions Diet Discharge Diet: No restrictions Activity Discharge Activity: Return to Normal Activity, May Not Drive (until after 2 weeks), May Shower and May Take a Tub Bath May resume sexual activity in: 6 weeks Weight Bearing Status: Full weight bearing Lifting Restrictions: Less than 20 lbs Dressing / Incision Call your doctor if your incision/area has: Continuous Slow Oozing, Sudden Increased Bleeding, Increased Pain/ Swelling, Increased Redness, Foul Smelling Discharge and Swelling at the incision site Call your doctor if you observe: Fever of 101 or Higher, Inability to urinate, Using more than 1 pad per hour, Shortness of breath, Dizziness, Chest pain, Calfdiscomfort and Uncontrolled pain Suture Line Care: Avoid Pulling/Pushing Remove Dressing in: 5 days Cleanse incision/area with: Soap & Water Follow Up Care Please Follow Up With: Claudia Stone CNM When: 2 weeks for virtual visit and 6 weeks for PP visit Test Results: Test results from this visit will be discussed in further detail at your follow- up appointment, if applicable. Discharge Plan Admission Admit Date/Time: 08/15/23 04:38 Primary Reason for Your Visit: Section Attending Provider: Camden Rivera Primary Care Provider: Care Physician,No Primary Discharge Orders/Prescriptions Prescriptions: New acetaminophen 500 mg Tablet 1,000 mg PO Q6H Qty: 0 0RF ibuprofen 600 mg Tablet 600 mg PO Q6H Qty: 0 0RF oxycodone 5 mg Tablet 5 - 10 mg PO Q4H PRN PRN (Reason: Pain Score 4-10) 7 Days Qty: 10 0RF sennosides-docusate sodium [Stool Softener-Stimulant Laxat] 8.6-50 mg Tablet 1 - 2 tab PO DAILY Qty: 30 0RF Referrals / Follow Up: Care Physician,No Primary [Primary Care Provider] - Disposition Disposition (needs filled in before D/C Order can be placed): Home, Self Care 08/17/23 045<Electronically signed by Claudia Stone CNM>Claudia Stone CNM CC: No Primary Care Physician ~ Signed [facility] Work Phone: 1(792) 317-528310-30-2023 Progress note Author Claudia Stone [facility] August 17, 2023 4:46am Note Date/Time August 17, 2023 4 :47am [facility] Medical Records Department [address] [place] [address] Progress Note - OBGYN 08/17/23 0444 MR#: [id number] Acct: [id number] Name: TIANNA LOUIS Rep #:[id number] 1 : 2005 18 From: Claudia LANG PCP: Care Physician,No Primary Status :ADM IN [facility] Subjective Subjective Doing well per patient and nursing staff. Ambulating and taking PO without difficulty. Voiding and passing flatus. Pain controlled. , services for assistance. Denies headache, visual changes, chest pain, shortness of breath, leg pain or increased bleeding. Lochia normal. Objective Data Objective Data Vital Signs: Vital Signs Temp Pulse Resp BP Pulse Ox O2 Del Method 97.7 F L 109 H 18 121/78 H 97 Room Air 08/17/23 01:30 08/17/23 01:30 08/17/23 01:30 08/17/23 01:30 08/17/23 01:30 08/17/23 01:30 Oxygen Delivery Method Room Air Weight: 161 lb 2.526 oz Body Mass Index (BMI) 28.5 Intake & Output: Intake and Output for Last 24 Hours 08/15/23 08/16/23 08/17/23 23:59 23:59 23:59 Intake Total 2828.33 / 2828.33 110 / 110 Output Total 1825 / 1825 500 / 500 Balance 1003.33 / 1003.33 -390 / -390 Lab / Micro Data 08/16/23 04:15 Micro: Microbiology 08/15/23 05:00 Interface Orders Chlamydia trachomatis (PCR) - Final 08/15/23 05:00 Interface Orders Neisseria gonorrhoeae (PCR) - Final ROS Constitutional Constitutional: Reports systems reviewed and no addt'l complaints, except as documented; Denies headache(s) Eyes Eyes: Denies acute decrease in peripheral vision, blurry vision or change in vision ENT HEENT: Reports systems reviewed and no addt'l complaints, except as documented Cardiovascular Cardiovascular: Denies chest pain or dizziness Respiratory/Chest Respiratory/Chest: Denies cough, dyspnea, dyspnea on exertion, shortness of breath at rest or shortness of breath with exertion Gastrointestinal Gastrointestinal: Denies abdominal pain, diarrhea, nausea or vomiting Genitourinary Genitourinary: Denies abdominal discomfort Musculoskeletal Musculoskeletal: Denies limited range of motion Integumentary Integumentary: Reports systems reviewed and no addt'l complaints, except as documented Neurologic Neurologic: Reports systems reviewed and no addt'l complaints, except as documented Psychiatric Psychiatric: Reports systems reviewed and no addt'l complaints, except as documented Endocrine Endocrinology: Reports systems reviewed and no addt'l complaints, except as documented Hematologic/Lymphatic Hematologic/Lymphatic: Reports systems reviewed and no addt'l complaints, exceptas documented Allergic/Immunologic Allergic/Immunologic: Reports systems reviewed and no addt'l complaints, except as documented Physical Exam Const alert and oriented x3 General Appearance: cooperative Orientation / Consciousness: awake, oriented to person, oriented to place and oriented to time Exam Limitations: no limitations HEENT normocephalic Head and Scalp: normal to inspection, normocephalic and atraumatic Face and Sinus: normal facial exam Eyes General Eye: normal appearance of both eyes Neck full ROM Chest Chest: symmetrical chest wall rise Resp normal respiratory effort and normal air movement Auscultation: clear to auscultation bilaterally Cardio regular rate, regular rhythm, S1 normal heart sound, S2 normal heart sound, no murmurs, no rub, no gallops and no clicks GI normal to inspection, nondistended, normoactive bowel sounds and non-tender GI Narrative: dressing dry and intact. Fundus firm 2 below U appearance of the vagina normal Bladder / Kidney Exam: no CVA tenderness Back/Spine normal ROM Extremity normal to inspection and full ROM Skin no rashes or lesions noted Neuro oriented x3 and moves all extremities Sensorium / Orientation: awake, alert and oriented to person Motor Exam: clonus absent Assessment & Plan (1) Lactating mother: (2) Status post primary low transverse section: PLAN: Plan 1) POD #2 LTCS 2) 3) Vitals stable 4) I&O 5) Pain management 6) D/C home today, follow up in 2 weeks and 6 weeks PP 08/17/23 0446 <Electronically signed by Claudia Stone CNM> Cosigner Signature (if applicable): CC: ~ Signed [facility] Work Phone: 1(551) 501-119610-29-2023 Progress note Author Claudia Stone [facility] August 16, 2023 10:38am Note Date/Time August 16, 2023 1 0:38am [facility] Medical Records Department [address] [facility] [place] [address] Progress Note - OBGYN 08/16/23 1032 MR#: [id number] Acct: [id number] Name: TIANNA LOUIS Rep #:[id number] 2 : 2005 18 From: Claudia LANG PCP: Care Physician,No Primary Status :ADM IN [facility] Subjective Subjective Doing well per patient and nursing staff. Ambulating and taking PO without difficulty. Voiding and passing flatus. Pain controlled. , services for assistance. Denies headache, visual changes, chest pain, shortness of breath, leg pain or increased bleeding. Lochia normal. Objective Data Objective Data Vital Signs: Vital Signs Temp Pulse Resp BP Pulse Ox O2 Del Method 98.3 F 106 H 14 108/70 97 Room Air 08/16/23 09:11 08/16/23 09:11 08/16/23 09:11 08/16/23 09:11 08/16/23 09:11 08/16/23 09:11 Oxygen Delivery Method Room Air Weight: 161 lb 2.526 oz Body Mass Index (BMI) 28.5 Intake & Output: Intake and Output for Last 24 Hours 08/14/23 08/15/23 08/16/23 23:59 23:59 23:59 Intake Total 2828.33 / 2828.33 Output Total 1825 / 1825 500 / 500 Balance 1003.33 / 1003.33 -500 / -500 Lab / Micro Data 08/16/23 04:15 Labs: Laboratory Results - last 24 hr 08/16/23 04:15: WBC 17.1 H, RBC 3.14 L, Hgb 8.7 L, Hct 28.6 L, MCV 91.1, MCH 27.7, MCHC 30.4 L, RDW Std Deviation 49.3 H, RDW Coeff of Anthony 14.8 H, Plt Count 256, MPV 11.1 Micro: Microbiology 08/15/23 05:00 Interface Orders Chlamydia trachomatis (PCR) - Final 08/15/23 05:00 Interface Orders Neisseria gonorrhoeae (PCR) - Final ROS Constitutional Constitutional: Reports systems reviewed and no addt'l complaints, except as documented; Denies headache(s) Eyes Eyes: Denies acute decrease in peripheral vision, blurry vision or change in vision ENT HEENT: Reports systems reviewed and no addt'l complaints, except as documented Cardiovascular Cardiovascular: Denies chest pain or dizziness Respiratory/Chest Respiratory/Chest: Denies cough, dyspnea, dyspnea on exertion, shortness of breath at rest or shortness of breath with exertion Gastrointestinal Gastrointestinal: Denies abdominal pain, diarrhea, nausea or vomiting Genitourinary Genitourinary: Denies abdominal discomfort Musculoskeletal Musculoskeletal: Denies limited range of motion Integumentary Integumentary: Reports systems reviewed and no addt'l complaints, except as documented Neurologic Neurologic: Reports systems reviewed and no addt'l complaints, except as documented Psychiatric Psychiatric: Reports systems reviewed and no addt'l complaints, except as documented Endocrine Endocrinology: Reports systems reviewed and no addt'l complaints, except as documented Hematologic/Lymphatic Hematologic/Lymphatic: Reports systems reviewed and no addt'l complaints, exceptas documented Allergic/Immunologic Allergic/Immunologic: Reports systems reviewed and no addt'l complaints, except as documented Physical Exam Const alert and oriented x3 General Appearance: cooperative Orientation / Consciousness: awake, oriented to person, oriented to place and oriented to time Exam Limitations: no limitations HEENT normocephalic Head and Scalp: normal to inspection, normocephalic and atraumatic Face and Sinus: normal facial exam Eyes General Eye: normal appearance of both eyes Neck full ROM Chest Chest: symmetrical chest wall rise Resp normal respiratory effort and normal air movement Auscultation: clear to auscultation bilaterally Cardio regular rate, regular rhythm, S1 normal heart sound, S2 normal heart sound, no murmurs, no rub, no gallops and no clicks GI normal to inspection, nondistended, normoactive bowel sounds and non-tender GI Narrative: dressing dry and intact appearance of the vagina normal Bladder / Kidney Exam: no CVA tenderness Back/Spine normal ROM Extremity normal to inspection and full ROM Skin no rashes or lesions noted Neuro oriented x3 and moves all extremities Sensorium / Orientation: awake, alert and oriented to person Assessment & Plan (1) Status post primary low transverse section: (2) Lactating mother: PLAN: Plan 1) POD#1 LTCS 2) Pain management 3) I&O 4) Hgb 10.1-8.7, will give iron infusion. Venofer 200mg IVPB x 1. Repeat CBC in am 5) Planning D/C home tomorrow 08/16/23 1038 <Electronically signed by Claudia Stone CNM> Cosigner Signature (if applicable): CC: ~ Signed [facility] Work Phone: 1(870) 186-645710-28-2023 Progress note Author Claudia Stone [facility] August 15, 2023 1:24pm Note Date/Time August 15, 2023 1 :24pm [facility] Medical Records Department [address] [place] [address] Progress Note - OBGYN 08/15/23 1319 MR#: [id number] Acct: [id number] Name: TIANNA LOUIS Rep #:[id number] 6 : 2005 18 From: Claudia LANG PCP: Care Physician,No Primary Status :ADM IN Location: LT499-2 Subjective Subjective Patient on left side and called to room for prolonged deceleration. Objective Data Objective Data Vital Signs: Vital Signs Temp Pulse BP Pulse Ox 99.0 F 100 116/55 L 99 08/15/23 13:01 08/15/23 13:03 08/15/23 13:03 08/15/23 11:15 Weight: 161 lb 2.526 oz Body Mass Index (BMI) 28.5 Intake & Output: Intake and Output for Last 24 Hours 08/13/23 08/14/23 08/15/23 23:59 23:59 23:59 Intake Total 1655 / 1655 Balance 1655 / 1655 Lab / Micro Data 08/15/23 05:15 Labs: Laboratory Results - last 24 hr 08/15/23 05:00: Urine Opiates Screen NEGATIVE, Urine Methadone Screen NEGATIVE, Ur Barbiturates Screen NEGATIVE, Ur Phencyclidine Scrn NEGATIVE, Ur AmphetaminesScreen NEGATIVE, MDMA (Ecstasy) Screen NEGATIVE, U Benzodiazepines Scrn NEGATIVE, Urine Cocaine Screen NEGATIVE, U Cannabinoids Screen NEGATIVE, Ur DrugScreen Comment 08/15/23 05:15: WBC 15.4 H, RBC 3.61 L, Hgb 10.1 L, Hct 32.3 L, MCV 89.5, MCH 28.0, MCHC 31.3 L, RDW Std Deviation 47.0 H, RDW Coeff of Anthony 14.5, Plt Count 323, MPV 10.4, Immature Gran % (Auto) 0.800, Neut % (Auto) 77.6 H, Lymph % (Auto) 15.6 L, [place] % (Auto) 4.9, Eos % (Auto) 0.6, Baso % (Auto) 0.5, Absolute Neuts (auto) 11.9 H, Absolute Lymphs (auto) 2.41, Nucleated RBC % 0, Syphilis Total Ab Non-reactive, Hepatitis C Antibody Non-Reactive, Blood Type O POSITIVE,Antibody Screen NEGATIVE Micro: Microbiology 08/15/23 05:00 Interface Orders Chlamydia trachomatis (PCR) - Final 08/15/23 05:00 Interface Orders Neisseria gonorrhoeae (PCR) - Final NST FHR Rate Baby A Baseline: 135 Variability:: Minimal Accelerations:: None Decelerations:: Prolonged (4 minutes) FHR Category:: Category II Uterine Activity:: every 1-2 minutes Assessment & Plan (1) Active labor at term: (2) Prolonged heart deceleration: PLAN: Plan 1) notified of prolonged deceleration of FHT for 4 minutes. Poor pushing efforts and remote from delivery. Minimal pushing efforts due to heart rate decelerations. Recommend section and agrees. 2) 2 grams of Ancef IVPB 3) PHLEBOTOMIST PRN called to hospital for section 08/15/23 1324 <Electronically signed by Claudia Stone CNM> Cosigner Signature (if applicable): CC: ~ Signed [facility] Work Phone: 1(186) 216-449410-28-2023 Progress note Author Claudia Stone [facility] August 15, 2023 1:06pm Note Date/Time August 15, 2023 1 :06pm [facility] Medical Records Department [address] [place] [address] Progress Note - OBGYN 08/15/23 1303 MR#: [id number] Acct: [id number] Name: TIANNA LOUIS Rep #:[id number] 1 : 2005 18 From: Claudia LANG PCP: Care Physician,No Primary Status :ADM IN Location: [place] [address] Subjective Subjective Was complete and pushing, called to room for heart rate decelerations downto 88. Turned from side to side and then to hands and knees with recovery to [id number]. Partner at bedside. Objective Data Objective Data Vital Signs: Vital Signs Temp Pulse BP Pulse Ox 99.6 F H 114 H 125/71 H 99 08/15/23 11:00 08/15/23 11:15 08/15/23 11:00 08/15/23 11:15 Weight: 161 lb 2.526 oz Body Mass Index (BMI) 28.5 Intake & Output: Intake and Output for Last 24 Hours 08/13/23 08/14/23 08/15/23 23:59 23:59 23:59 Intake Total 1655 / 1655 Balance 1655 / 1655 Lab / Micro Data 08/15/23 05:15 Labs: Laboratory Results - last 24 hr 08/15/23 05:00: Urine Opiates Screen NEGATIVE, Urine Methadone Screen NEGATIVE, Ur Barbiturates Screen NEGATIVE, Ur Phencyclidine Scrn NEGATIVE, Ur AmphetaminesScreen NEGATIVE, MDMA (Ecstasy) Screen NEGATIVE, U Benzodiazepines Scrn NEGATIVE, Urine Cocaine Screen NEGATIVE, U Cannabinoids Screen NEGATIVE, Ur DrugScreen Comment 08/15/23 05:15: WBC 15.4 H, RBC 3.61 L, Hgb 10.1 L, Hct 32.3 L, MCV 89.5, MCH 28.0, MCHC 31.3 L, RDW Std Deviation 47.0 H, RDW Coeff of Anthony 14.5, Plt Count 323, MPV 10.4, Immature Gran % (Auto) 0.800, Neut % (Auto) 77.6 H, Lymph % (Auto) 15.6 L, [place] % (Auto) 4.9, Eos % (Auto) 0.6, Baso % (Auto) 0.5, Absolute Neuts (auto) 11.9 H, Absolute Lymphs (auto) 2.41, Nucleated RBC % 0, Syphilis Total Ab Non-reactive, Hepatitis C Antibody Non-Reactive, Blood Type O POSITIVE,Antibody Screen NEGATIVE Micro: Microbiology 08/15/23 05:00 Interface Orders Chlamydia trachomatis (PCR) - Final 08/15/23 05:00 Interface Orders Neisseria gonorrhoeae (PCR) - Final Physical Exam Narrative 135, moderate variability, variable and late decelerations, prolonged deceleration recovered, category 2 FHT Assessment & Plan (1) Active labor at term: PLAN: Plan 1) Repositioning and recovery of FHT, resumption of pushing efforts in hands andknees then repositioned and continued pushing efforts. consulted notified of prolonged deceleration and recovery, asked to review tracing. To continue with current pushing efforts at this time. 2) FSE in place 08/15/23 1306 <Electronically signed by Claudia Stone CNM> Cosigner Signature (if applicable): CC: ~ Signed [facility] Work Phone: 1(578) 546-942810-28-2023 History and physical note Author Claudia Stone [facility] August 15, 2023 1:03pm Note Date/Time August 15, 2023 5 :48am [facility] Medical Records Department [address] [address] H&P Exam - BOX ANNEALER 08/15/23 0548 MR#: [id number] Acct: [id number] Name: TIANNA LOUIS Rep #:[id number] 4 : 2005 18 From: Claudia LANG PCP: Care Physician,No Primary Status :ADM IN Location: PY192-5 HPI - General General Date of Admission: 08/15/23 HPI Narrative TIANNA LOUIS, is a 18 F KWASI 08/24/23 at 38 5/7 who presents with SROM clear fluid at 3 am 08/15/2023, began having contractions immediately thereafter. complicated by Pyelectasis, Marijuana use/vapes, hx of self mutilation. Maternal Data Information KWASI Calculator Estimated Delivery Date Method Current WG Current Estimate 08/24/23 Manual 38w 5d Final KWASI: 08/24/23 [facility] Medical History (Updated 08/15/23 @ 08:08 by Claudia Stone CNM) Anorexia Depression Headache PTSD (post-traumatic stress disorder) Vaginal cyst Home Medications NK 08/15/23 [History Last Taken Unknown] Allergy/AdvReac Type Severity Reaction Status Date / Time sulfamethoxazole AdvReac Mild Vomiting Verified 08/15/23 05:38 [From Bactrim] trimethoprim [From Bactrim] AdvReac Mild Vomiting Verified 08/15/23 05:38 Surgical History History of appendectomy Social History household members: significant other Smoking Status: Heavy Smoker (>10/day) alcohol intake: former substance use type: former substance user Date of last use: Marijuana History Elective abortions Hx Para 0 Spontaneous abortions Hx # Term Pregnancies Ectopic pregnancies Hx # Pregnancies Multiple births # of living children NST FHR Rate Baby A Baseline: 145 Variability:: Moderate Accelerations:: 15 x 15 Decelerations:: Late (3 lates present within 1 hr, resolved with position changes ) FHR Category:: Category II Uterine Activity:: Contractions mod-strong q 1.5-3 ROS Constitutional Constitutional: Reports systems reviewed and no addt'l complaints, except as documented; Denies headache(s) Eyes Eyes: Denies acute decrease in peripheral vision, blurry vision or change in vision ENT HEENT: Reports systems reviewed and no addt'l complaints, except as documented Cardiovascular Cardiovascular: Denies chest pain or dizziness Respiratory/Chest Respiratory/Chest: Denies cough, dyspnea, dyspnea on exertion, shortness of breath at rest or shortness of breath with exertion Gastrointestinal Gastrointestinal: Denies abdominal pain, diarrhea, nausea or vomiting Genitourinary Genitourinary: Denies abdominal discomfort Musculoskeletal Musculoskeletal: Denies limited range of motion Integumentary Integumentary: Reports systems reviewed and no addt'l complaints, except as documented Neurologic Neurologic: Reports systems reviewed and no addt'l complaints, except as documented Psychiatric Psychiatric: Reports systems reviewed and no addt'l complaints, except as documented Endocrine Endocrinology: Reports systems reviewed and no addt'l complaints, except as documented Hematologic/Lymphatic Hematologic/Lymphatic: Reports systems reviewed and no addt'l complaints, exceptas documented Allergic/Immunologic Allergic/Immunologic: Reports systems reviewed and no addt'l complaints, except as documented Vital Signs Vital Signs Vital Signs: 08/15/23 04:34 08/15/23 04:34 08/15/23 04:34 Temperature Temperature Source Pulse Rate 114 H 114 H Blood Pressure 125/89 H BP Systolic 125 BP Diastolic 89 Pulse Ox 08/15/23 04:34 08/15/23 04:34 08/15/23 04:34 Temperature Temperature Source Temporal Pulse Rate Blood Pressure BP Systolic BP Diastolic Pulse Ox 98 99 08/15/23 04:34 Temperature 98.6 F Temperature Source Pulse Rate Blood Pressure BP Systolic BP Diastolic Pulse Ox Weight Weight: 161 lb 2.526 oz Body Mass Index (BMI) 28.5 Physical Exam Const alert and oriented x3 General Appearance: cooperative Orientation / Consciousness: awake, oriented to person, oriented to place and oriented to time Exam Limitations: no limitations HEENT normocephalic Head and Scalp: normal to inspection, normocephalic and atraumatic Face and Sinus: normal facial exam Eyes General Eye: normal appearance of both eyes Neck full ROM Chest Chest: symmetrical chest wall rise Resp normal respiratory effort and normal air movement Auscultation: clear to auscultation bilaterally Cardio regular rate, regular rhythm, S1 normal heart sound, S2 normal heart sound, no murmurs, no rub, no gallops and no clicks GI normal to inspection, nondistended, normoactive bowel sounds and non-tender appearance of the vagina normal Bladder / Kidney Exam: no CVA tenderness Back/Spine normal ROM Extremity normal to inspection and full ROM Skin no rashes or lesions noted Neuro oriented x3 and moves all extremities Sensorium / Orientation: awake, alert and oriented to person Motor Exam: clonus absent Labs Labs Labs: Blood Type O POSITIVE Antibody Screen NEGATIVE Hct 32.3 % (37-47) L Hgb 10.1 g/dL (12.0-15.0) L Hepatitis C Antibody Non-Reactive (Nonreactive) 06/23/23 Hgb 10.4 Hct 31.7 Plt 330 Syphilis NR GTT 125 O+ 04/01/23 O+ ATB Screen negative 02/26/2023 HBSAG NR HCV NR Rubella immune 02/18/2023 Hgb 12.0 Hct 34.0 Plt 276 Assessment & Plan (1) 38 weeks gestation of : (2) Spontaneous rupture of membranes: (3) Active labor at term: (4) Anxiety and depression: (5) History of self mutilation: (6) Marijuana use during : (7) Vapes nicotine containing substance: (8) Pyelectasis of fetus on ultrasound: COMMENT: Ultrasound on 07/29/23 left sided mild renal pelvis dilation. Pediatric team to be notified at delivery. PLAN: Plan Admit to L& D Continuous EFM GBS prophylaxis: PCN 5 Grams IV x1 then PCN 3 million Grams q4h until delivery Encourage po fluids I & O Position changes q 30 minutes Comfort measures prn Epidural in place Collaborative physician: Dr Rivera, notify of admission and pt status 08/15/23 1303 <Electronically signed by Claudia Stone CNM> Cosigner Signature (if applicable): CC: ALLAN Stone; No Primary Care Physician~ Signed [facility] Work Phone: 1(945) 464-522610-28-2023 Procedure [facility] 08-12-2023 Miscellaneous Notes* Quick Notes - Abhay Bone APRN.CNM - 08/12/2023 4:23 PM EDT S: Tianna Louis is a 18 year old female who presents at 38.2 weeks gestation for a routine visit. Stated had some contractions last night that resolved. Stated they were irregular. Denies any loss offluid or vaginal bleeding. Positive movement. Denies headache, [...] RTO 1 week or sooner if needed Abhay Bone APRN.CNM documented [facility] Instructions* Patient Instructions* Kenzie Lara MA - 08/12/2023 4:09 PM EDT SEQUENTIAL SCREENINGS [facility] offers sequential screenings for women who are interested in screenings for chromosomal abnormalities and certain defects during a . The sequential screen combinesultrasound and blood tests to determine the risk [...] this testing. It will require an appointment withour licensed chemical spray technician. This is not an ultrasound performed [...] the above symptoms, contact our office at [phone] and ask to speak with anurse. After hours, you can call doctors registry at [phone] OR call [facility] at [phone] ask to have the doctor instrument and controls technician paged. If you consider this an emergency, dial 9-1-0 or go to your nearest emergency department. NEED HELP? Are you dealing with a violent or abusive relationship? Are you a victim of rape or sexual assult? Call [facility] ([place]) 24 hour Crisis Hotline: 272.480.2135 or 215-240-9126. MANUAL Your Guide to a Healthy manual is now on-line. Visit [email or web address] to download your free copy documented in this encounterMemorial [facility]10-24-2023 History of Present illness Narrative* Kenzie Amaral MA - 08/11/2023 10:50 AM EDT POPULATION HEALTH NAVIGATION OUTREACH Action/ 1st attempt: Called and left message to call back to discuss box annealer. MC message sent. Patient Identified by Name and : NO Outreach Outcome/Action Unable to reach patient: Left message MyChart message sent Did you use a PCP flex slot to schedule this appointment? N/A Reason for Outreach Payer: [facility] [facility] [place] Plan: [employer] [place] / Product Type: Medicaid / Care [...] Influenza Vaccine(1) Never done Covid-19 Vaccine(3 - season) due on 06/19/2023 Navigation Signature: Kenzie Macdonald MA August 11, 2023 10:51 AM documented in this encounterMemorial [facility]10-19-2023 Miscellaneous Notes* Telephone Encounter - Andrez Massey RN - 08/06/2023 8:53 AM EDT Patient notified. Please leave open for blood management. ANDREZ MASSEY RN * Telephone Encounter - Andrez Massey RN - 08/06/2023 8:53 AM EDT ----- Message from Abhay Bone APRN.CNM sent at 08/05/2023 5:04 PM EDT ----- Preeclampsia labs are normal. HGB is low at 9.9. Iron studies ordered and consult to blood management for possible iron infusions placed. Please notify patient and assist with scheduling. Abhay Bone APRN.CNM * Telephone Encounter - Shannon Lopez - 06/15/2023 8:10 AM EDT Referral to [facility]. Pt is transfer from [place]. Sent to Ezio team to assist with scheduling. documented in this encounterMemorial [facility]10-18-2023 Miscellaneous Notes* Quick Notes - Abhay Bone APRN.CNM - 08/05/2023 1:17 PM EDT S: Tianna Louis is a 18 year old female [...] RTO- 1 week or sooner if needed Abhay Bone APRN.CNM documented in this encounterMemorial [facility]10-18-2023 Instructions* Patient Instructions* Bishnu Thacker Cma - 08/05/2023 12:58 PM EDT SEQUENTIAL SCREENINGS [facility] offers sequential screenings for women who are interested in screenings for chromosomal abnormalities and certain defects during a . The sequential screen combinesultrasound and blood tests to determine the risk [...] this testing. It will require an appointment withour licensed chemical spray technician. This is not an ultrasound performed [...] the above symptoms, contact our office at [phone] and ask to speak with anurse. After hours, you can call doctors registry at [phone] OR call [facility] at [phone] ask to have the doctor instrument and controls technician paged. If you consider this an emergency, dial 06-19- or go to your nearest emergency department. NEED HELP? Are you dealing with a violent or abusive relationship? Are you a victim of rape or sexual assult? Call [facility] ([place]) 24 hour Crisis Hotline: 368.867.6688 or 890-552-6589. MANUAL Your Guide to a Healthy manual is now on-line. Visit [email or web address] to download your free copy documented in this encounterMemorial [facility]09-29-2023 Miscellaneous Notes* Telephone Encounter - Vonnie Turner RN - 07/17/2023 12:25 PM EDT 2nd risk assessment form submitted 07/17/23 Vonnie Turner RN documented in this encounterMemorial [facility]09-25-2023 Miscellaneous Notes* Quick Notes - Abhay Bone APRN.CNM - 07/13/2023 8:09 AM EDT S: Tianna Louis is a 18 year old female [...] Gen: No apparent distress Abd: Gravid, nontender Sales Person: small, left side bartholin cyst noted. Tender [...] RTO 2 weeks for GISELLE with US (M) Abhay Bone APRN.CNM documented in this encounterMemorial [facility]09-25-2023 Instructions* Patient Instructions* Christine Kevin LPN - 07/13/2023 7:55 AM EDT SEQUENTIAL SCREENINGS [facility] offers sequential screenings for women who are interested in screenings for chromosomal abnormalities and certain defects during a . The sequential screen combinesultrasound and blood tests to determine the risk [...] this testing. It will require an appointment withour licensed chemical spray technician. This is not an ultrasound performed [...] the above symptoms, contact our office at [phone] and ask to speak with anurse. After hours, you can call doctors registry at [phone] OR call [facility] at [phone] ask to have the doctor instrument and controls technician paged. If you consider this an emergency, dial 8--2 or go to your nearest emergency department. NEED HELP? Are you dealing with a violent or abusive relationship? Are you a victim of rape or sexual assult? Call [facility] ([place]) 24 hour Crisis Hotline: 933.932.9275 or 458-415-1345. MANUAL Your Guide to a Healthy manual is now on-line. Visit [email or web address] to download your free copy documented in this encounterMemorial Health [facility]09-11-2023 Miscellaneous Notes* Telephone Encounter - Christine Kevin LPN - 06/29/2023 1:45 PM EDT Pt returned call and was given below results and will schedule follow up ultrasound at her next visit. Christine Kevin LPN * Telephone Encounter - Christine Kevin LPN - 06/26/2023 3:12 PM EDT Message left asking pt to contact office for results and instructions. Christine Kevin LPN * Telephone Encounter - Christine Kevin LPN - 06/26/2023 3:12 PM EDT ----- Message from Abhay Bone APRN.CNM sent at 06/26/2023 2:54 PM EDT ----- Reviewed. Pyelectasis resolved. Follow up US with MFM 36-37 weeks gestation to confirm resolution. Abhay Bone APRN.CNM documented in this encounterMemorial [facility]09-09-2023 Miscellaneous Notes* Telephone Encounter - Claudia Marie RN - 06/27/2023 9:57 AM EDT Patient calling regarding her test results from her OB doctor. Conferenced to [place] computer aided design operator,to speak with provider instrument and controls technician for Dr. Bone. Patient denies any new or worsening symptoms that a provider is unaware of. documented in this encounterMemorial [facility]09-08-2023 Miscellaneous Notes* Telephone Encounter - Tracie Wilkerson RN - 06/26/2023 1:27 PM EDT Call to Tianna at the request of Abhay Bone to notify her that she no longer needs to come to [facility] for a consult and that her US today looked good. Appointments were cancelled. She was instructed to call the office to schedule an US for 36-37 weeks at [place]. She verbalized understanding documented in this encounterMemorial Health [facility]09-08-2023 Miscellaneous Notes* Telephone Encounter - Abhay Bone APRN.CNM - 06/26/2023 9:34 AM EDT Order signed. Note that patient is here in office today for ultrasound. Abhay Bone APRN.CNM * Telephone Encounter - Kiki Rodrigues RN - 06/25/2023 9:13 AM EDT 31w3d [facility] in [place] calling for u/s order. She is scheduled there on 07/02/23. Please file order. No need to call them back. Kiki Rodrigues RN documented in this encounterMemorial Health [facility]09-06-2023 Miscellaneous Notes* Telephone Encounter - Abhay Bone APRN.CNM - 06/24/2023 12:18 PM EDT Please notify patient that the lab results are within normal range for . Thank you Abhay Bone APRN.CNM * Telephone Encounter - Radha Khan RN - 06/24/2023 8:19 AM EDT 31w2d Regarding CBC results documented in this encounterMemorial Health [facility]08-28-2023 Miscellaneous Notes* Telephone Encounter - Tracie Wilkerson RN - 06/15/2023 1:05 PM EDT Tianna returned my call and is agreeable to coming to [place] for an US and a MFM consult. * Telephone Encounter - Tracie Wilkerson RN - 06/15/2023 10:52 AM EDT VM left with my contact info for Tianna to return my call to schedule an appt with MFM documented in this encounterMemorial Health [facility]08-23-2023 Miscellaneous Notes* Quick Notes - Abhay Bone APRN.CNM - 06/10/2023 5:15 PM EDT Patient is at 29.2 weeks gestation that is a transfer of care from [place], [place]. Her and partner just moved here. She has received care and ultrasounds. Records available for review. She was told infant has bilateral pyelectasis. Will place order for MFM consult and ultrasound for confirmation. Patient has a history of depression, anxiety, anorexia, and self mutualization. Norecent treatment, medications or hospitalizations. Denies any SI/HI. Interested in referral to [facility] Women's behavioral health services. See progress note. Abhay Bone APRN.CNM documented in this encounterMemorial Health System [facility]08-23-2023 History of Present illness Narrative* Abhay Bone APRN.CNM - 06/10/2023 1:37 PM EDT INITIAL OB ASSESSMENT HPI: Tianna is a 18 year old No obstetric history on file. [facility] here to establish Obstetrical Care. Patient's last menstrual period was 11/17/2022. from OB Dating Form. Cycles regular was unplanned but accepted She is a transfer of care from [place]. Complaints: None OB History T0 L0 SAB0 [...] use: No Multivitamin with Folic acid: No Faith or heritage: No Would refuse blood transfusion [...] has occurred to me. Yes, quite often [place] Depression Scale Total 14 Feeling nervous, anxious [...] of Date: 06/10/2023 Allergen Noted Reaction BACTRIM [SULFAMETHOXAZOLE-TRIMETH*06/10/2023 Vomiting Fully Assessed 06/10/2023 Does patient have [...] Your guide to a health and the Isotope Technologist. Reviewed midwifery and credit resolution representative services that are available. Follow up in 2 weeks or sooner prn. Abhay Bone APRN.CNM documented in this encounterMemorial Health System [facility]08-23-2023 Instructions* Patient Instructions* Abhay Bone APRN.CNM - 06/10/2023 1:37 PM EDT Here are some links for wonderful Providers here in the community and surrounding areas. Do not hesitate to contact their offices, many are offering virtual visits during this time. 1-018-4-SQWW0UIET - [place] Maternal Mental Health Hotline If you are in suicidal crisis, please call or text 2-810-301-TALK ( ) or visit the National Suicide Prevention Lifeline website. mchb.[facility].gov [facility] Behavioral Health Psychology, Psychiatry, Counseling Connect with therapist/ can do virtual visits [phone] Referral to the [facility] To schedule an appointment, please call the Center for Behavioral Health Appointment Line: [phone] option 1 Counsel[facility] - [place], [place] [address] [place] [address] [facility] [address] [place], [place] [id number] [facility] [address] [place] [address] [facility] [address] [place] [address] Sung Ruiz MD [address] [place] [address] [facility] [address] [facility] [place], [address] [place] [address] [facility] [address] [place] [address] [facility] [place] / [place] [phone]/ [phone] Ksenia Gordillo [address] [facility] [phone] [facility] [place] / [place] [phone] Behavioral health services of [facility] [address] [place] [address]/ [place] [phone] Meena Alatorre, KEVAN, CRISELDA [facility] Family Therapy Workshops, telehealth and at home visits. [phone] [facility] [place] [address] [facility], [place], [place], [place], [place], [place], [facility], [place], [place], [place], [place], [place], [place], [facility], [place], [place] ,[facility], [place], [place],[facility], [facility], [place], [facility], [facility], [place] www.Nimbus LLC [phone] Psychotherapy resources outside of [facility] are listed below [facility] 525j.com.cn Psychotherapy Web: https://www.Big Sky Partners LLC/ Support International Online Provider Directory https://Krush/ [facility] https://CyPhy WorkscoGreen & Pleasant/ Partners for Behavioral Health and Wellness Web: https://Mobile Complete/ Center for Effective Living Web: https://www.effectiveNorthstar Nuclear Medicineliving.Cargoh.com/ LifeStance Web: https://Montgomery Financial.Cargoh.com/location/[facility]/[place]/ [facility] Web: https://www.Mapp[facility] state harding hospitalinc.org/ The Centers Web: https://Semetric.org/ Recovery Resources Mental health and substance abuse help Web: https://www.FindersfeesGlance Labs & RESOURCES Support International Direct peer support and connection to professional resources Non-Emergency Helpline Phone: / Text: [phone] Web: https://www..net/ Online Provider Directory: https://Krush/ Online Support Meetings: https://www..net/get-help/att-miotay-vqkkgwd-meetings/ JOHN Baby and Insulation Engineman Services Web: https://wwwLetsgofordinner/ MotherToStarbates Expert information on medication use during and Text: [phone] Web: https://Lifeline Biotechnologies/ NATIONAL REGISTRY FOR PSYCHIATRIC MEDICATIONS Currently studying the safety of antidepressants, ADHD medications and atypical antipsychotics taken during TO PARTICIPATE CALL TOLL-FREE: Web: https://womensmentalhealth.org/research/pregnancyregistry/ Support Groups: [facility]- Follow on facebook Baby Bistro support group led by [facility] department [facility] - Support Group [facility].org The POEM support group [phone] Www.poemonline.org Follow on facebook - TAMIA alvarado Online support meetings PSI https://www..net/get-help/yvt-pgtytw-acennmt-meetings/ [facility] mommy and me virtual support group 11:30-1pm Support for mothers and new babies and toddlers [place] childbirth education: Childbirth @cc.org or call [phone] CRISIS: CRISIS HOTLINE [phone], 911 or go to the nearest [facility] [phone] / [facility] [phone] https://www.[facility].org Crisis text line text the word HOME to [phone] [facility] [address] [facility] [id number] www.Riskalyze Bruna Senior clinical counseling [address] [address] www.ParkingCarma [phone] Holding space psychotherapy Abeba Davis COMMUNICATIONS ADMINISTRATOR JOB COST ESTIMATOR-S [address] [facility] www.Cirrus Insight [phone]/ Hung [phone] They all offer virtual. All work with trauma Support groups Online support meetings PSI https://www..net/get-help/kxh-jusvmr-hglsicy-meetings/ Here are the support groups they offer: Support of parents of 1 to 4 years old children POEM ( Outreach and Encouragement for Moms) offers free support for mothers experiencing depression, anxiety, and other mood and anxiety disorders. Masks are recommended but not required. No pre-registration required. Babies in arms welcome. meetings now take place on the and Thursday of each month Location: [facility] [address] [place] [address] Room 122 (library room) 7-8:00 p.m. When you enter the [facility] parking lot off of [address] the entrance door closest to our meeting room is on the front of the building toward the right. For those who are more comfortable with a virtual platform, PO offers online support group options several days of the week. To register for an online group or to find out more about POEM, website at: https://aohio.org/get-help/eywmhnmg-hhvvjw-cwywxw/poem-services/ offer a confidential helpline: private Facebook group is called PODELISA - [place] Jenny Here are the groups they offer: Traumatic childbirth resources: Http://pattch.org/ https://www.cyndyTeleusyannick.Cargoh.com/ Please select the following link to access the [facility] Your Guide to a Healthy . www.Ccf.org/healthypregnancyguide documented in this encounterMemorial Health System [facility]08-22-2023 Miscellaneous Notes* Telephone Encounter - Lashaun Rosa LPN - 06/09/2023 4:42 PM EDT Left message to call office * Telephone Encounter - Brandee Posada RN - 06/08/2023 4:52 PM EDT Left message for patient to return phone call. Patient is scheduled for NOB with Abhay Bone onThursday and the telephone note states she is transferring care from [place]. Please tell patient we need to have her records transferred here prior to NOB appointment documented in this encounterMemorial Health [facility]04-24-[address] Nguyen [facility] February 09, 2023 9:37pm Note Date/Time February 09, 2023 7:1 4pm [facility] Medical Records Department [address] [place] [address] Emergency Department Summary 02/09/23 MR#: [id number] Acct: [id number] Name: TIANNA LOUIS Rep #:[id number] : 2005 17 From: Andrzej Nguyen MD PCP: Care Physician,No Primary Status :REG ER Location: ED HPI History of Present Illness Chief Complaint: Nausea/Vomiting Detail of Chief Complaint: First trimester with nausea and vomiting for the past 3 days Informant: patient Onset/Context/Timing Onset: Weeks Timing: Intermittent Quality: Nausea and vomiting with thirst and intermittent lightheadedness Location: GI Current Severity: Moderate Maximum Severity: Moderate Worsened by: Attempt to eat or drink anything Relieved by: Nothing Associated Symptoms Associated Symptoms: Dry mouth, thirst and lightheadedness Narrative Narrative: Patient is a 17-year-old G1, P0 female first trimester , 12 weeks gestation, who presents with nausea vomiting for the past 3 days. She is had nausea fine for greater than 1 week. She states she is not able to keep anything down for the past 48 hours. She denies fever, chills night sweats. Denies headache, visual, ocular auditory symptoms. She denies cardiac or respiratory symptoms. She does complain of vague abdominal discomfort with vomiting. She denies diarrhea. She denies frequency, urgency hematuria or dysuria. She endorses decreased urine output. She and lesions. She states herobstetrician is Dr. Martinez who practices at [facility]. Prior similar symptoms: Yes Recent Illness/Hospitalization: Yes PFSH PFS Medical History Vaginal cyst Home Medications cephalexin 500 mg capsule 500 mg PO Q6 #28 CAPSULES 02/09/23 [Rx Last Taken Unknown] ondansetron 4 mg disintegrating tablet 4 mg PO Q8H PRN PRN Nausea #10 tabs 02/09/23 [Rx Last Taken Unknown] Allergy/AdvReac Type Severity Reaction Status Date / Time No Known Allergies Allergy Verified 02/09/23 17:01 Surgical History History of appendectomy Social History (Updated 02/09/23 @ 19:[address] Andrzej Nguyen MD) household members: significant other Smoking Status: Current every day smoker tobacco type: e-cigarettes alcohol intake: former substance use type: former substance user Date of last use: Marijuana ROS ROS ED Constitutional Constitutional ED: Denies chills, fever(s), subjective, sweats or weight loss Eyes Eyes: Denies blurry vision, change in vision or diplopia ENT ENT ED: Denies ear pain, rhinorrhea or sore throat Cardiovascular Cardiovascular: Denies chest pain, orthopnea, palpitations, paroxysmal nocturnaldyspnea or racing heartbeat Respiratory/Chest Respiratory/Chest: Denies cough, dyspnea, dyspnea on exertion, orthopnea or paroxysmal nocturnal dyspnea Gastrointestinal Gastrointestinal: Reports abdominal pain, nausea and vomiting; Denies constipation, diarrhea or melena Genitourinary Genitourinary ED: Denies dysuria, hematuria or urinary frequency Musculoskeletal Musculoskeletal: Denies arthralgias, back pain, myalgias or neck pain Integumentary Denies rash Neurologic Neurologic: Denies headache(s) or paresthesias Endocrine Endocrinology: Denies cold intolerance, heat intolerance, polydipsia or polyuria Hematologic/Lymphatic Hematologic/Lymphatic: Reports systems reviewed and no addt'l complaints, exceptas documented EXAM Physical Exam Const Vital Signs: 02/09/23 16:58 Temperature 96.3 F L Temperature Source Temporal Pulse Rate 88 Respiratory Rate 22 H Blood Pressure 114/68 Blood Pressure Mean 83 Pulse Ox 97 Oxygen Delivery Method Room Air Positive well nourished and well developed Constitutional Narrative: Patient is in no distress. She is slightly pale. General Appearance ED: well developed and pallor; Negative for cyanotic or diaphoretic HEENT Reports dry mucous membranes HEENT Narrative: Head is atraumatic normocephalic. Ears are normal. Nares are patent. Posterior pharynx out erythema or exudate. Uvula is midline. Mouth ED: Yes dry mucous membranes Mouth: dry mucous membranes Eyes PERRL and EOMs intact bilaterally General Eye ED: Negative for pale conjunctiva or scleral icterus Neck no lymphadenopathy, supple and no JVD Chest Wall inspection of chest normal and palpation of chest normal Resp normal respiratory effort and clear to auscultation bilaterally Cardio regular rate, regular rhythm, S1 normal heart sound, S2 normal heart sound and no murmurs GI normal to inspection, nondistended, normoactive bowel sounds, non-tender, non-distended and no masses; Negative for hepatosplenomegaly Back/Spine no CVA tenderness Cervical Spine: Negative for cervical spine tenderness Thoracic Spine / Upper Back: Negative for thoracic spinal tenderness Lumbar Spine / Lower Back: Negative for lumbar spinal tenderness Extremity normal to inspection General Extremety ED: Negative for edema or tenderness General Extremity: Negative for edema Neuro oriented x3, CN's II-XII intact bilaterally and no sensory deficits noted Sensorium / Orientation: alert Psych mental status grossly normal Skin no rashes or lesions noted, no wounds and skin turgor normal General Skin Exam: elasticity normal and pallor; Negative for jaundice MDM MDM MDM Narrative Medical decision making narrative: Clinically patient appears dehydrated. Suspect this is hyperemesis gravidarum. 1 L normal saline was ordered as well as Zofran. Since patient's spec gravity is elevated and ketones are in urine second liter was ordered with D5 half-normal to clear ketosis. Will reassess. Laboratory studies from last week werereviewed. Patient had ketonuria at that time as well. She was diagnosed with threatened miscarriage. There is no other records available. History & Record Review Additional record(s) reviewed:: Prior ED visit Lab Data Attestation: I reviewed the patient's lab results. Lab results narrative: Urine reveals severe gravity 1.030 with ketones. Macro also is remarkable for occult blood and leukoesterase and negative for nitrites. Patient does have pyuria with 10-25 WBCs. Rare bacteria. Since she is culture was sent and she was treated with a short course of cephalexin. Labs: Laboratory Results - last 24 hr 02/09/23 19:40 Urine Color Yellow Urine Clarity Cloudy Urine pH 5.0 Ur Specific [place] 1.030 Urine Protein 30 H Urine Glucose (UA) Normal Urine Ketones 150 A* Urine Occult Blood 25 H Urine Nitrite Negative Urine Bilirubin Negative Urine Urobilinogen Normal Ur Leukocyte Esterase 100 H Urine RBC 0-5 SEEN Urine WBC 10-25 SEEN Ur Squamous Epith Cells 5-10 SEEN Amorphous Sediment 1+ URATE Urine Bacteria RARE Urine Mucus 0 SEEN Treatment and Re-Evaluation :: Patient feels markedly improved after 1 L of normal saline and 1 L of D5 half- normal saline. Patient passed p.o. challenge. Discharge Plan Triage Chief Complaint: Nausea/Vomiting ED Provider: Andrzej Nguyen Dx/Rx/DC Orders Clinical Impression: Hyperemesis gravidarum, Bacteriuria with pyuria, First trimester , Acute dehydration, Ketosis Instructions: Urinary Tract Infections in Women, ED Hyperemesis Gravidarum Prescriptions: New cephalexin [cephalexin] 500 mg capsule 500 mg PO Q6 Qty: 28 0RF ondansetron [ondansetron] 4 mg tablet,disintegrating 4 mg PO Q8H PRN PRN (Reason: Nausea) Qty: 10 0RF Primary Care Provider: Care Physician,No Primary Referrals: Care Physician,No Primary [Primary Care Provider] - Doctor,Your [Non-Staff] - 3-5 Days Activity Restrictions/Additional Instructions: 1. Call your OB for follow-up in 3 to 5 days. 2. Take antibiotics till gone 3. Take Zofran as needed for nausea and vomiting Disposition Disposition: Home, Self Care What to do if you have Problems For any increased pain, shortness of breath, bleeding, nausea or vomiting, chestpain, or any unexpected problems, contact your Primary Care Provider. Call [facility] ([phone]) or report to the closest Emergency Room. Call 911 if necessary. 02/09/232136 <Electronically signed by Andrzej Nguyen MD> Cosigner Signature (if applicable): CC: No Primary Care Physician ~ Signed [facility] Work Phone: 1(232) 615-781904-24-2023 Hospital Discharge instructions Additional Instructions 1. Call your OB for follow-up in 3 to 5 days. 2. Take antibiotics till gone 3. Take [facility]fran as [facility] Work Phone: 1(550) 924-637104-19-[address] Murphy [facility] February 04, 2023 10:39pm Note Date/Time February 04, 2023 9:4 0pm [facility] Medical Records Department [address] [place] [address] Emergency Department Summary 02/04/23 MR#: [id number] Acct: [id number] Name: TIANNA LOUIS Rep #:[id number] : 2005 17 From: Qian Owens PCP: Care Physician,No Primary Status :REG ER Location: ED HPI HPI - Female History of Present Illness Chief Complaint: Vag Bld, Preg Informant: patient Narrative Narrative: Patient is a 17-year-old female, G1, P0 currently 11 weeks with last menstrual period on November 17. She previously seen an BOX ANNEALER in [place], Dr. Jonathan Covington. She had she had appointment with him this morning. She notes he had a hard time finding the heart beat and she was worried about that. She also notes that when driving back to the [place] area (she just moved here) she had some abdominal cramping and had small amount of blood clots spotting of bright red blood. The symptoms have since resolved. She came in for further evaluation. She denies any urinary symptoms. She denies any abnormal vaginal discharge. She did not have a pelvic exam at her appointment today. She does not know her blood type. No other complaints at this time. [facility] Medical History Vaginal cyst Home Medications NK 02/04/23 [History Last Taken Unknown] Allergy/AdvReac Type Severity Reaction Status Date / Time No Known Allergies Allergy Verified 02/04/23 19:48 Surgical History History of appendectomy Social History Smoking Status: Current every day smoker tobacco type: e-cigarettes ROS ROS ED Constitutional Constitutional ED: Denies chills or fever(s) Gastrointestinal Gastrointestinal: Reports abdominal pain; Denies diarrhea, nausea or vomiting Genitourinary Genitourinary ED: Reports other Details: vaginal bleeding, +11 weeks Musculoskeletal Musculoskeletal: Denies arthralgias or myalgias Integumentary Denies rash Neurologic Neurologic: Denies headache(s) or weakness Psychiatric Psychiatric: Denies anxiety EXAM Physical Exam Const Vital Signs: 02/04/23 19:48 Temperature 97.1 F L Temperature Source Temporal Pulse Rate 110 H Respiratory Rate 18 Blood Pressure 120/76 Blood Pressure Mean 90 Pulse Ox 99 Oxygen Delivery Method Room Air Positive well nourished and well developed General Appearance ED: well developed and NAD HEENT Reports moist mucous membranes Neck supple Chest Wall inspection of chest normal Resp normal respiratory effort and clear to auscultation bilaterally Cardio regular rate and regular rhythm GI normal to inspection, nondistended, normoactive bowel sounds and soft to palpation GI Narrative: Uterus is not palpable Narrative: Deferred Back/Spine no CVA tenderness Extremity normal to inspection and full ROM Neuro oriented x3 Sensorium / Orientation: alert Psych mental status grossly normal Skin no rashes or lesions noted MDM MDM MDM Narrative Medical decision making narrative: Patient is evaluated for cramping and vaginal bleeding in early . Bedside also performed myself shows a single intrauterine gestation with heart tones of 163. There is good activity. Patient is informed of thesefindings. She is not having any further bleeding or cramping I do not think a pelvic exam or formal ultrasound was obtained. Urinalysis was obtained which did show 150 ketones, 100 leukocyte esterase, rare bacteria, negative nitrates and 0-5 red blood cells, white blood cells and squamous epithelial cells. Urinewill be sent for culture but think this is most consistent with contamination. Patient is given referral for local BOX ANNEALER. She is O+ and does not require RhoGAM. Quant is obtained for a baseline in case patient has further bleeding. Counseled on signs and symptoms of threatened miscarriage. Patient was ordered IV fluids however she states that she does not want an IV and did not want IV fluids. Counseled to drink lots of fluids at home. She verbalizes good understand this plan. She is discharged home in stable condition. Lab Data Labs: Laboratory Results - last 24 hr 02/04/23 02/04/23 02/04/23 20:27 21:30 21:30 HCG, Quant [id number] H Urine Color Yellow Urine Clarity Sl. Cloudy Urine pH 6.0 Ur Specific [place] 1.025 Urine Protein 15 H Urine Glucose (UA) Normal Urine Ketones 150 A* Urine Occult Blood 50 H Urine Nitrite Negative Urine Bilirubin Negative Urine Urobilinogen Normal Ur Leukocyte Esterase 100 H Urine RBC 0-5 SEEN Urine WBC 0-5 SEEN Ur Squamous Epith Cells 0-5 SEEN Urine Bacteria RARE Urine Mucus 0 SEEN Blood Type O POSITIVE Discharge Plan Triage Chief Complaint: Vag Bld, Preg ED Provider: Qian Murphy Dx/Rx/DC Orders Clinical Impression: Threatened miscarriage in early , Ketonuria Instructions: ED Possible Miscarriage ... Prescriptions: No Action NK Primary Care Provider: Care Physician,No Primary Referrals: Shaunna Arteaga DO [Med Staff - Active Staff] - 1-2 Weeks Care Physician,No Primary [Primary Care Provider] - Activity Restrictions/Additional Instructions: Your blood type is O+. You do not require RhoGAM. Please follow-up with [facility]. Your hCG quant today was 53,199. You did show signs of dehydration or urine. Please drink lots of fluids. Baby's heart rate was normal today. Disposition Disposition: Home, Self Care What to do if you have Problems For any increased pain, shortness of breath, bleeding, nausea or vomiting, chestpain, or any unexpected problems, contact your Primary Care Provider. Call [facility] ([phone]) or report to the closest Emergency Room. Call 911 if necessary. 02/04/232238 <Electronically signed by Qian Murphy DO> Cosigner Signature (if applicable): CC: No Primary Care Physician ~ Signed [facility] Work Phone: [phone] 115-287002-09-2023 SARS-related CoV RNA KATHLEEN+probe Ql (Resp) Coronavirus (COVID-19)(PCR)November 27, 2022 10:39amNot DetectedNot DetectThe 2019 novel Coronavirus (SARS-CoV-2) target nucleic acidsare not detected. Negative results do not dibrjmmnJPVX-GcI-5 infection and should not be used as the solebasis for treatment or other patient management decisions.Negative results must be combined with clinicalobservations, patient historyand epidemiologicalinformation.[facility] [id number] [facility] [id number]. Mary [facility] SystemComment on above:The 2019 novel Coronavirus (SARS-CoV-2) target nucleic acidsare not detected. Negative results do not aibjtgihHRIG-QzO-1 infection and should not be used as the solebasis for treatment or other patient management decisions.Negative results must be combined with clinicalobservations, patient historyand epidemiologicalinformation.04-07-2022 Evaluation + Plan noteExtracted from: Title:[facility] H&P Author:ELOY GUERRERO MD Date: 04/07/22 History and Physical Date of Admission: 04/07/22 Attending Physician: Dr. Amanda Le Referring physician: Juliano (Dr. Rouse) Diagnosis: left vulvar mass History of Present Illness: 17-year-old woman who presents for a left labial cyst. Per documentation this cystic area has been present for 2 years. Upon initial presentation to primary crozer operator on patient was trialed on a course [...] and unable to palpate surrounding branham of cyst. 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 Has never had a pap [...] on behalf of Dr. Le. Addendum by AMANDA LE on April 07, 2022 7:03 EDT [...] procedure. All of her questions were answered. AMANDA LE MD FACOG Future Appointments Appointment Date:04/23/2022 01:00:00 PM Scheduled Provider:AMANDA LE MD Location:[facility] Appointment Type:[facility] Post Op [facility] 06-20-2022 Hospital Discharge instructions Patient Education 04/07/2022 09:28:49 8- Post Op [facility] Surgery (09/2020) (Custom) What to Do After [...] as your pain allows. You may take bgef-kau-cjpkroqrpgj medication if you no longer need your prescribed pain medication. Zikp-ual-ifyhsxr pain medications are Tylenol (acetaminophen) or Advil (ibuprofen). Do not take Tylenol if you are still taking Wendell or Percocet. They are the same type [...] questions that you may have. 04/07/2022 09:28:49 1-[facility] Discharge Instructions Template (07/2018) (Custom) CYNTHIA SAME [...] us better serve our patients. Form: [id number]) R: 01/2504/07/2022 09:28:49 1- [facility] General Discharge Guidelines (07/2018) (Custom) General Outpatient [...] Document Reviewed: 10/06/2014 ExitCare Patient Information 2015 [employer], [facility]. This information is not intended to replace advicegiven to you by your health care provider. Make sure you discuss any questions you have with your health care provider. Follow Up Care 03/05/2022 14:24:24 With:AMANDA LE MD Address: [address] [place] [address] [place] [address] [phone] When:04/21/2022 Comments:Follow-up as scheduled With:AMANDA LE MD Address: [address] [place] [address] [address] [place] [address] [phone] When: Unknown Comments:Follow-up with Dr. Le in the office on April 23, 2022 at 1:00 PM. Postoperative visit. [facility] Evaluation + Plan note Future Appointments Appointment Date:03/10/2022 04:00:00 PM Scheduled Provider: Location:[facility] Appointment Type:US Groin Left Appointment Date:04/23/2022 01:00:00 PM Scheduled Provider:AMANDA LE MD Location:[facility] Appointment Type:SO OV Post Op Future Scheduled Tests Radiology* US Groin Left 03/10/22 [facility] Evaluation + Plan note Future Appointments Appointment Date:05/23/2022 01:20:00 PM Scheduled Provider:DANNY LLANOS Location:[facility] Appointment Type:SO OV Post Op [facility] evNuron Biotechkdmap noteNo assessment information available [facility] Work Phone: evaluation note* Diagnosis with care [...] cyst with abscess [facility]* Diagnosis abnormality in antepartum , single or unspecified fetus- Primary with care elsewhere, antepartum Marijuana use during Vapes nicotine containing substance documented in this encounter [facility]* Diagnosis with care elsewhere, antepartum- Primary Suspected anomaly, antepartum, single or unspecified fetus documented in this encounter [facility] note* Diagnosis Encounter for supervision of normal first in third trimester- Primary Supervision of normal first 34 weeks gestation of state, incidental Hemorrhoids, unspecified hemorrhoid type Cyst of Bartholin's gland [facility] Onset Date Resolution Status 32 weeks gestation of acute [facility] Work Phone: Evaluation note* Diagnosis Pyelectasis of fetus on ultrasound- Primary Abnormal findings on screening with care elsewhere, antepartum Marijuana use during Vapes nicotine containing substance abnormality in antepartum , single or unspecified fetus 36 weeks gestation of state, incidental [facility]* Diagnosis Encounter for supervision of normal first in third trimester- Primary Supervision of normal first 37 weeks gestation of state, incidental Elevated blood pressure reading without diagnosis of hypertension [facility]* Diagnosis 38 weeks gestation of - Primary state, incidental Encounter for supervision of normal first in third trimester Supervision of normal first GBS bacteriuria Vapes nicotine containing substance Marijuana use during [facility] Diagnosis Onset Date Resolution Status 32 weeks gestation of acute 35 weeks gestation of acute Diarrhea acute Viral URI acute 38 weeks gestation of acute Active labor at term acute Anxiety and depression acute History of self mutilation a cute Lactating mother acute Marijuana use during acute Prolonged heart deceleration acute Pyelectasis of fetus on ultrasound acute Spontaneous rupture of membranes acute Status post primary low transverse section acute Vapes nicotine containing substance acute [facility] Work Phone: Evaluation note* Diagnosis Encounter for initial prescription of contraceptive pills- Primary General counseling for prescription of oral contraceptives care and examination Routine follow-up Previous section Other postprocedural status Encounter for screening for maternal depression [facility]* Diagnosis Episode of recurrent major depressive disorder, unspecified depression episode severity (HCC)- Primary Tachycardia Tachycardia, unspecified Tiredness Other malaise and fatigue Anxiety Anxiety state, unspecified Vapes nicotine containing substance History of self mutilation Personal history of other mental disorder Anemia complicating , third trimester documented [facility]* Diagnosis care and examination- Primary Routine follow-up documented [facility]* Diagnosis Major depressive disorder, single episode, mild with peripartum onset (HCC)- Primary documented in this encounter [facility] note* Diagnosis Labial abscess- Primary Other abscess of vulva Dysuria [facility]* Diagnosis Palpitations- Primary Irritable bowel syndrome without diarrhea Irritable bowel syndrome At risk for obstructive sleep apnea [facility]* Diagnosis Palpitations documented [facility]* Diagnosis At risk for obstructive sleep apnea- Primary documented in this encounter [facility] note* Diagnosis Screen for STD (sexually transmitted disease)- Primary Screening examination for venereal disease Vaginal discharge Leukorrhea, not specified as infective Acute vaginitis Vaginitis and vulvovaginitis, unspecified Bartholin cyst Cyst of Bartholin's gland documented in this encounter [facility] note* Diagnosis Stomach pain- Primary Dyspepsia and other specified disorders of function of stomach Special screening examination for viral disease Special screening examination for unspecified viral disease documented in this encounter [facility] note* Diagnosis MELISSA (generalized anxiety disorder)- Primary Generalized anxiety disorder Moderate episode of recurrent major depressive disorder (HCC) documented in this encounter [facility] note* Diagnosis Visit for pre-operative examination- Primary Preoperative examination, unspecified Labial cyst Other specified noninflammatory disorder of vulva and perineum documented in this encounter [facility] note* Diagnosis Post-operative state- Primary Other postprocedural status documented in this encounter [facility] note* Diagnosis Labial cyst- Primary Other specified noninflammatory disorder of vulva and perineum Post-operative state Other postprocedural status documented in this encounter [facility] note* Diagnosis Need for HPV vaccine- Primary Need for prophylactic vaccination and inoculation against other viral diseases documented in this encounter [facility] course Narrative No data available for this section [facility] Hospital Discharge instructions No data available for this section [facility] Hospital Discharge instructions Additional Instructions Your blood type is O+. You do not require RhoGAM. Please follow-up with [facility]. Your hCG quant today was 53,199. You did show signs of dehydration or urine. Please drink lots of fluids. Baby's heart rate was normal today.[facility] Work Phone: Progress note No data available for this section [facility] Reason for referral (narrative)* Diagnostic Procedure Only (Routine) - Authorized Specialty Diagnoses / Procedures Referred By Floyd t Referred To Contact [facility] Diagnoses with care elsewhere, antepartum Marijuana use during Vapes nicotine containing substance abnormality in antepartum , single or unspecified fetus Procedures OBSTETRIC ULTRASOUND WHI US PREG UTERUS AFTER 1ST TRIMEST GESTATION Abhay Bone APRN.CNM [address] [place] [address] [address] Referral ID Status Reason Start Date Expiration Date Visits Requested Visits Authorized [id number] Authorized Auto-Generat ed Referral 07/02/2023 06/25/2024 1 1 [facility] for referral (narrative)* Diagnostic Procedure Only (Routine) - Pending Review Specialty Diagnoses / Procedures Referred By Floyd t Referred To Contact [facility] Diagnoses with care elsewhere, antepartum Suspected anomaly, antepartum, single or unspecified fetus Procedures OBSTETRIC ULTRASOUND WHI US PREG UTERUS AFTER 1ST TRIMEST GESTATION Abhay Bone APRN.CNM [address] [place] [address] [address] Referral ID Status Reason Start Date Expiration Date Visits Requested Visits Authorized [id number] Pending Review Auto-Generat ed Referral 07/03/2023 06/24/2024 1 1 [facility] for referral (narrative)* Outpatient Procedure (Routine) - Pending Review Specialty Diagnoses / Procedures Referred By Contac t Referred To Contact [facility] Diagnoses Tachycardia Procedures ECG COMPLETE ECG ROUTINE ECG W/LEAST 12 LDS W/I&R Waldo Good DO 1 [facility] [address] [place] [id number] [facility] [address] [place] [address] Referral ID Status Reason Start Date Expiration Date Visits Requested Visits Authorized [id number] Pending Review Auto-Generat ed Referral 3 09/13/2024 1 1 [facility] Diagnostic Procedure Only (Routine) - Authorized Specialty Diagnoses / Procedures Referred By Floyd fuentes Referred To Contact [facility] Diagnoses At risk for obstructive sleep apnea Procedures HOME SLEEP APNEA TEST (HSAT) SLEEP STD AIRFLOW HRT RATE&O2 SAT EFFORT UNATT Rubin Borrego MD [address] [place] [address] [place] [id number] Referral ID Status Reason Start Date Expiration Date Visits Requested Visits Authorized [id number] Authorized Auto-Generat ed Referral 4 09/27/2025 1 1 [facility] Summary Purpose Family History No Family History Records FoundNo Family History Records FoundNo Family History Records FoundNo Family History Records FoundNo Family History Records FoundNo Family History Records FoundNo Family History Records FoundNo Family History Records Found Advance Directives Advance Directive Response Recorded Date/ Time Advanced Directive: N July 24, 2022 11:37am [place] DNR Comfort Care Directives: N July 24, 2022 11:37am Organ Donation Card: N July 11:37am Advance Directive Response Recorded Date/ Time Advanced Directive: N August 9:56am [place] DNR Comfort Care Directives: N September 07, 2022 9:56am Organ Donation Card: Y September 072021 9:56am Advance Directive Response Recorded Date/ Time Advanced Directive: N November 11:47am [place] DNR Comfort Care Directives: N November 27, 2022 11:47am Organ Donation Card: N November 11:47am Advance Directive Response Recorded Date/ Time Living Will No February 04, 2023 8:31pm Power of Procurement Specialist No February 04 8:31pm Advance Directive Response Recorded Date/ Time Living Will No February 09, 2023 7:07pm Power of Procurement Specialist No February 09 7:07pm Advance Directive Response Recorded Date/ Time Advanced Directive: N May 14, 2 023 2:52am [place] DNR Comfort Care Directives: N May 14, 2023 2:52am Organ Donation Card: Y May 14, 2023 2:52am Advance Directive Response Recorded Date/ Time Living Will No August 15 5:03am Power of Procurement Specialist No August 15, 2023 5:03am Advance Directive Response Recorded Date/ Time Advanced Directive: N April 03, 2 024 12:44pm [place] DNR Comfort Care Directives: N April 03, 2024 12:44pm Organ Donation Card: Y April 03, 2024 12:44pm Chief Complaint and Reason for Visit Reason for Visit N/V, CHEST PAIN Chief Complaint R/O ABSCESS NAUSEA pilonidal cyst PRIMARY Reason for Visit 32 weeks gestation o f 35 weeks gestation of Diarrhea Viral URI 38 weeks gestation of Active labor at term Anxiety and depression History of self mutilation Lactating mother Marijuana use during Prolonged heart deceleration Pyelectasis of fetus on ultrasound Spontaneous rupture of membranes Status post primary low transverse section Vapes nicotine containing substance Chief Complaint R/O ABSCESS NAUSEA Reason for Visit 32 weeks gestation o f Chief Complaint R/O ABSCESS Chief Complaint R/O Reason for Visit CYST GETTING WORSE 6 MONTHS PREG WAS SEEN AT EXPRE TAILBONE OPENING? AND PAIN Chief Complaint VAG BLEED N/V Chief Complaint VAG BLEED Reason for Visit ABD.PAIN,DIARRHEA,N& V SORE THROAT;CONGESTION;EARS ARE PLUGGED Reason for Visit RASH TO CHIN, REDNES S & DRAINAGE Reason for Referral Specialty Diagnoses / Procedures Referred By Floyd fuentes Referred To Contact Diagnoses At risk for obstructive sleep apnea Procedures CONSULT TO SLEEP MEDICINE - ADULT OFFICE/OUTPATIENT [facility] 60 MINUTES Rubin Borrego MD [address] [place] [id number] Referral ID Status Reason Start Date Expiration Date Visits Requested Visits Authorized [id number] Authorized PCP Requested Referral 11/02/2024 11/02/2025 1 1 Specialty Diagnoses / Procedures Referred By Contac t Referred To Contact Diagnoses with care elsewhere, antepartum 29 weeks gestation of Episode of recurrent major depressive disorder, unspecified depression episode severity (HCC) Anxiety History of self mutilation Marijuana use during Vapes nicotine containing substance Suspected anomaly, antepartum, single or unspecified fetus Procedures CONSULT TO MATERNAL MEDI OFFICE/OUTPATIENT NEW HIGH MDM 60-74 MINUTES Abhay Bone APRN.CNM [address] [place] [address] Referral ID Status Reason Start Date Expiration Date Visits Requested Visits Authorized [id number] Authorized PCP Requested Referral Auto-Generate d Referral 06/10/2023 06/09/2024 1 1 Specialty Diagnoses / Procedures Referred By Contac t Referred To Contact [facility] Diagnoses with care elsewhere, antepartum 29 weeks gestation of Procedures OBSTETRIC ULTRASOUND WHI US PREG UTERUS AFTER 1ST TRIMEST GESTATION Abhay Bone APRN.CNM [address] [place] [address] [facility] [address] [place] [address] Referral ID Status Reason Start Date Expiration Date Visits Requested Visits Authorized [id number] Authorized Auto-Generat ed Referral 06/10/2023 06/09/2024 1 1 Additional Source Comments Care Team (unrecognized sect ion and content) Team Status: Active Member Role Status Dates None primary care physician Active Start : September 07, 2022 Saman Portillo EMERGENCY Active Start: September 07, 2022 None FAMILY Active Start: September 07, 2022 ASHLY LOUIS Next of Kin Active Start: September 07, 2022 Team Status: Active Member Role Status Dates Amanda Pleitez NP primary care physician Active Start: November 27, 2022 Edward Ibrahim MD EMERGENCY Active Start: 2022 Amanda Pleitez NP FAMILY Active Start: 2022 ASHLY LOUIS Next of Kin Active Start: November 27, 2022 TIANNA LOUIS Guarantor Active Start: 2022 Team Status: Active Member Role Status Dates No Primary Care Physician Primary Care Provider Active Team Status: Inactive Member Role Status Dates Dr. Qian Murphy DO Emergency Provider Active No Primary Care Physician Primary Care Provider Active Team Status: Inactive Member Role Status Dates No Primary Care Physician Primary Care Provider Active Dr. Andrzej Nguyen MD Emergency Provider Active Team Status: Active Member Role Status Dates Amanda Pleitez NP primary care physician Active Start: May 14, 2023 Rory Pappas DO EMERGENCY Active S tart: May 14, 2023 Amanda Pleitez NP FAMILY Active Start: 2022 ASHLY LOUIS Next of Kin Active Start: April TIANNA LOUIS Guarantor Active Start: April 192022 Team Status: Inactive Member Role Status Dates No Primary Care Physician Primary Care Provider Active Dr. Bessy Jacinto MD Attending Provider, Referring Provider Active Team Status: Inactive Member Role Status Dates No Primary Care Physician Primary Care Provider Active Ed Physician Provider Emergency Provider Active Team Status: Inactive Member Role Status Dates No Primary Care Physician Primary Care Provider Active Ed Physician Provider Attending Provider, Emergency Pr ovider Active Team Status: Inactive Member Role Status Dates No Primary Care Physician Primary Care Provider Active Dr. Елена Valladares DO Attending Provider Active Team Status: Inactive Member Role Status Dates No Primary Care Physician Primary Care Provider Active Dr. Geovanny Cruz MD Attending Provider, Emergency Pro vider Active Team Status: Inactive Member Role Status Dates No Primary Care Physician Primary Care Provider Active Dr. Camden Rivera MD Admit Provider, At tending Provider, Referring Provider Active Business Economist Relationship Specialty Start Date End Date Waldo Good DO [address] [place], [place] [phone] PCP - General Internal Medicine 09/14/23 Baljit Harvey MD 1 [place] [address] PCP Resident 09/14/23 Business Economist Relationship Specialty Start Date End Date Waldo Godo DO [address] [place] [id number] PCP - General Internal Medicine 09/14/23 Baljit Harvey MD 1 [place], [place] [phone] PCP Resident 09/14/23 Business Economist Relationship Specialty Start Date End Date Waldo Good DO 1 [facility] [address] [place], [place] [phone] PCP - General Internal Medicine 09/14/23 Baljit Harvey MD 1 [place], [place] [phone] PCP Resident 09/14/23 Business Economist Relationship Specialty Start Date End Date Waldo Good DO [address] [phone] PCP - General Internal Medicine 09/14/23 Baljit Harvey MD 1 [place], [place] [id number] PCP Resident 09/14/23 Team Status: Active Member Role Status Dates Amanda Pleitez NP primary care physician Active Start: April 03, 2024 Kristopher Bonilla DO EMERGENCY Active Start: April 03, 2024 Amanda Pleitez NP FAMILY Active Start: Loreta 2023 ASHLY LOUIS Next of Kin Active Start: March TIANNA LOUIS Guarantor Active Start: March 192023 Business Economist Relationship Specialty Start Date End Date Waldo Good DO 1 [facility] [address] [place], [place] [id number] PCP - General Internal Medicine 09/14/23 Baljit Harvey MD 1 [place], [place] [id number] PCP Resident 09/14/23 Business Economist Relationship Specialty Start Date End Date Waldo Good DO [address] [phone] PCP - General Internal Medicine 09/14/23 Baljit Harvey MD 1 [place], [place] [phone] PCP Resident 09/14/23 Business Economist Relationship Specialty Start Date End Date Waldo Good DO [address] [phone] PCP - General Internal Medicine 09/14/23 Baljit Harvey MD 1 [place], [place] [phone] PCP Resident 09/14/23 Business Economist Relationship Specialty Start Date End Date Waldo Good DO [address] [phone] PCP - General Internal Medicine 09/14/23 Baljit Harvey MD 1 [place], [place] [phone] PCP Resident 09/14/23 Business Economist Relationship Specialty Start Date End Date Waldo Good DO [address] [phone] PCP - General Internal Medicine 09/14/23 Baljit Harvey MD 1 [place], [place] [phone] PCP Resident 09/14/23 Business Economist Relationship Specialty Start Date End Date Waldo Good DO [address] [address] [place], [place] [phone] PCP - General Internal Medicine 09/14/23 Baljit Harvey MD [address] [place], [place] [phone] PCP Resident 09/14/23 Business Economist Relationship Specialty Start Date End Date Baljit Harvey MD [address] [place], [place] [phone] PCP Resident 09/14/23 Sly Pride MD [address] [place] [address] [place], [place] [id number] Internal Medicine 12/01/24 Business Economist Relationship Specialty Start Date End Date Baljit Harvey MD [address] [place], [place] [phone] PCP Resident 09/14/23 12/01/24 Sly Pride MD [address] [place], [place] [id number] Internal Medicine 12/01/24 12/01/24 Business Economist Relationship Specialty Start Date End Date Jose Alejandro He MD [address] [place] [address] PCP - General Internal Medicine 12/02/24 Sly Pride MD [address] [place] [address] PCP Resident Internal Medicine 12/02/24 Business Economist Relationship Specialty Start Date End Date Jose Alejandro He MD [address] [place], [place] [id number] PCP - General Internal Medicine 12/02/24 Sly Pride MD [address] [place] [address] PCP Resident Internal Medicine 12/02/24 Business Economist Relationship Specialty Start Date End Date Jose Alejandro He MD [address] [place], [place] [phone] PCP - General Internal Medicine 12/02/24 Sly Pride MD [address] [place], [place] [phone] PCP Resident Internal Medicine 12/02/24 Business Economist Relationship Specialty Start Date End Date Jose Alejandro He MD [address] [place] [address] PCP - General Internal Medicine 12/02/24 Sly Pride MD [address] [place] [address] PCP Resident Internal Medicine 12/02/24 Business Economist Relationship Specialty Start Date End Date Jose Alejandro He MD [address] [place] [address] PCP - General Internal Medicine 12/02/24 Sly Pride MD [address] [place] [address] PCP Resident Internal Medicine 12/02/24 Business Economist Relationship Specialty Start Date End Date Jose Alejandro He MD [address] [place] [address] PCP - General Internal Medicine 12/02/24 Sly Pride MD [address] [place], [place] [phone] PCP Resident Internal Medicine 12/02/24 Business Economist Relationship Specialty Start Date End Date Jose Alejandro He MD [address] [place] [place] [phone] PCP - General Internal Medicine 12/02/24 Sly Pride MD [address] [place], [place] [phone] PCP Resident Internal Medicine 12/02/24 Care Team (unrecognized sect ion and content) Care Team Personnel Name: GRACE MEEK OCCUPATIONAL THERAPY ASSIST Member Role: Primary Care Physician Address: Address: [address] [place] [phone]- [place] Name: AMANDA LE MD Position: P4 Oncology Provider Med Service: OFFICER [facility] Infusion Therapy Member Role: Gynecologic Oncologist Address: Address: [address] [place] [address] [place] [address] Care Team Related Persons Name: RAUL LOUIS Name: [place], INFORMATION SOURCE (unrecogn ized section and content) DATE CREATED AUTHOR 07/19/2022 [facility] ([place]) DATE CREATED AUTHOR AUTHOR'S ORGANIZ ATION 03/28/2023 [facility] DATE CREATED AUTHOR AUTHOR'S ORGANIZ ATION 05/28/2023 [facility] DATE CREATED AUTHOR AUTHOR'S ORGANIZ ATION 06/15/2023 [facility] DATE CREATED AUTHOR AUTHOR'S ORGANIZ ATION 04/16/2024 [facility] DATE CREATED AUTHOR AUTHOR'S ORGANIZ ATION 03/15/2025 [facility] DATE CREATED AUTHOR AUTHOR'S ORGANIZ ATION 03/20/2025 [facility] DATE CREATED AUTHOR AUTHOR'S ORGANIZ ATION 04/09/2025 [facility] [place] Goals (unrecognized section and content) Goals may be documented in a n alternate section Source Comments (unrecognize d section and content) In the event this informatio n is protected by the Federal Confidentiality of Alcohol and Drug Abuse Patient Records regulations: The Federal rules restrict any use of the information to criminally investigate or prosecute any alcohol or drug abuse patient.[facility] Hospital[facility] the event this information is protected by the Federal Confidentiality of Alcohol and Drug Abuse Patient Records regulations: The Federal rules restrict any use of the information to criminally investigate or prosecute any alcohol or drug abuse patient.[facility] HospitalIn the event this information is protected by the Federal Confidentiality of Alcohol and Drug Abuse Patient Records regulations: The Federal rules restrict any use of the information to criminally investigate or prosecute any alcohol or drug abuse patient.[facility] HospitalIn the event this information is protected by the Federal Confidentiality of Alcohol and Drug Abuse Patient Records regulations: The Federal rules restrict any use of the information to criminally investigate or prosecute any alcohol or drug abuse patient.[facility] HospitalIn the event this information is protected by the Federal Confidentiality of Alcohol and Drug Abuse Patient Records regulations: The Federal rules restrict any use of the information to criminally investigate or prosecute any alcohol or drug abuse patient.[facility] HospitalIn the event this information is protected by the Federal Confidentiality of Alcohol and Drug Abuse Patient Records regulations: The Federal rules restrict any use of the information to criminally investigate or prosecute any alcohol or drug abuse patient.[facility] HospitalIn the event this information is protected by the Federal Confidentiality of Alcohol and Drug Abuse Patient Records regulations: The Federal rules restrict any use of the information to criminally investigate or prosecute any alcohol or drug abuse patient.[facility] HospitalIn the event this information is protected by the Federal Confidentiality of Alcohol and Drug Abuse Patient Records regulations: The Federal rules restrict any use of the information to criminally investigate or prosecute any alcohol or drug abuse patient.[facility] HospitalIn the event this information is protected by the Federal Confidentiality of Alcohol and Drug Abuse Patient Records regulations: The Federal rules restrict any use of the information to criminally investigate or prosecute any alcohol or drug abuse patient.[facility] HospitalIn the event this information is protected by the Federal Confidentiality of Alcohol and Drug Abuse Patient Records regulations: The Federal rules restrict any use of the information to criminally investigate or prosecute any alcohol or drug abuse patient.[facility] HospitalIn the event this information is protected by the Federal Confidentiality of Alcohol and Drug Abuse Patient Records regulations: The Federal rules restrict any use of the information to criminally investigate or prosecute any alcohol or drug abuse patient.[facility] HospitalIn the event this information is protected by the Federal Confidentiality of Alcohol and Drug Abuse Patient Records regulations: The Federal rules restrict any use of the information to criminally investigate or prosecute any alcohol or drug abuse patient.[facility] HospitalIn the event this information is protected by the Federal Confidentiality of Alcohol and Drug Abuse Patient Records regulations: The Federal rules restrict any use of the information to criminally investigate or prosecute any alcohol or drug abuse patient.[facility] HospitalIn the event this information is protected by the Federal Confidentiality of Alcohol and Drug Abuse Patient Records regulations: The Federal rules restrict any use of the information to criminally investigate or prosecute any alcohol or drug abuse patient.[facility] HospitalIn the event this information is protected by the Federal Confidentiality of Alcohol and Drug Abuse Patient Records regulations: The Federal rules restrict any use of the information to criminally investigate or prosecute any alcohol or drug abuse patient.[facility] HospitalIn the event this information is protected by the Federal Confidentiality of Alcohol and Drug Abuse Patient Records regulations: The Federal rules restrict any use of the information to criminally investigate or prosecute any alcohol or drug abuse patient.[facility] HospitalIn the event this information is protected by the Federal Confidentiality of Alcohol and Drug Abuse Patient Records regulations: The Federal rules restrict any use of the information to criminally investigate or prosecute any alcohol or drug abuse patient.[facility] HospitalIn the event this information is protected by the Federal Confidentiality of Alcohol and Drug Abuse Patient Records regulations: The Federal rules restrict any use of the information to criminally investigate or prosecute any alcohol or drug abuse patient.[facility] HospitalIn the event this information is protected by the Federal Confidentiality of Alcohol and Drug Abuse Patient Records regulations: The Federal rules restrict any use of the information to criminally investigate or prosecute any alcohol or drug abuse patient.[facility] HospitalIn the event this information is protected by the Federal Confidentiality of Alcohol and Drug Abuse Patient Records regulations: The Federal rules restrict any use of the information to criminally investigate or prosecute any alcohol or drug abuse patient.[facility] HospitalIn the event this information is protected by the Federal Confidentiality of Alcohol and Drug Abuse Patient Records regulations: The Federal rules restrict any use of the information to criminally investigate or prosecute any alcohol or drug abuse patient.[facility] HospitalIn the event this information is protected by the Federal Confidentiality of Alcohol and Drug Abuse Patient Records regulations: The Federal rules restrict any use of the information to criminally investigate or prosecute any alcohol or drug abuse patient.[facility] HospitalIn the event this information is protected by the Federal Confidentiality of Alcohol and Drug Abuse Patient Records regulations: The Federal rules restrict any use of the information to criminally investigate or prosecute any alcohol or drug abuse patient.[facility] HospitalIn the event this information is protected by the Federal Confidentiality of Alcohol and Drug Abuse Patient Records regulations: The Federal rules restrict any use of the information to criminally investigate or prosecute any alcohol or drug abuse patient.[facility] HospitalIn the event this information is protected by the Federal Confidentiality of Alcohol and Drug Abuse Patient Records regulations: The Federal rules restrict any use of the information to criminally investigate or prosecute any alcohol or drug abuse patient.[facility] HospitalIn the event this information is protected by the Federal Confidentiality of Alcohol and Drug Abuse Patient Records regulations: The Federal rules restrict any use of the information to criminally investigate or prosecute any alcohol or drug abuse patient.[facility] HospitalIn the event this information is protected by the Federal Confidentiality of Alcohol and Drug Abuse Patient Records regulations: The Federal rules restrict any use of the information to criminally investigate or prosecute any alcohol or drug abuse patient.[facility] HospitalIn the event this information is protected by the Federal Confidentiality of Alcohol and Drug Abuse Patient Records regulations: The Federal rules restrict any use of the information to criminally investigate or prosecute any alcohol or drug abuse patient.[facility] HospitalIn the event this information is protected by the Federal Confidentiality of Alcohol and Drug Abuse Patient Records regulations: The Federal rules restrict any use of the information to criminally investigate or prosecute any alcohol or drug abuse patient.[facility] HospitalIn the event this information is protected by the Federal Confidentiality of Alcohol and Drug Abuse Patient Records regulations: The Federal rules restrict any use of the information to criminally investigate or prosecute any alcohol or drug abuse patient.[facility] HospitalIn the event this information is protected by the Federal Confidentiality of Alcohol and Drug Abuse Patient Records regulations: The Federal rules restrict any use of the information to criminally investigate or prosecute any alcohol or drug abuse patient.[facility] HospitalIn the event this information is protected by the Federal Confidentiality of Alcohol and Drug Abuse Patient Records regulations: The Federal rules restrict any use of the information to criminally investigate or prosecute any alcohol or drug abuse patient.[facility] HospitalIn the event this information is protected by the Federal Confidentiality of Alcohol and Drug Abuse Patient Records regulations: The Federal rules restrict any use of the information to criminally investigate or prosecute any alcohol or drug abuse patient.[facility] HospitalIn the event this information is protected by the Federal Confidentiality of Alcohol and Drug Abuse Patient Records regulations: The Federal rules restrict any use of the information to criminally investigate or prosecute any alcohol or drug abuse patient.[facility] HospitalIn the event this information is protected by the Federal Confidentiality of Alcohol and Drug Abuse Patient Records regulations: The Federal rules restrict any use of the information to criminally investigate or prosecute any alcohol or drug abuse patient.[facility] HospitalIn the event this information is protected by the Federal Confidentiality of Alcohol and Drug Abuse Patient Records regulations: The Federal rules restrict any use of the information to criminally investigate or prosecute any alcohol or drug abuse patient.[facility] HospitalIn the event this information is protected by the Federal Confidentiality of Alcohol and Drug Abuse Patient Records regulations: The Federal rules restrict any use of the information to criminally investigate or prosecute any alcohol or drug abuse patient.[facility] HospitalIn the event this information is protected by the Federal Confidentiality of Alcohol and Drug Abuse Patient Records regulations: The Federal rules restrict any use of the information to criminally investigate or prosecute any alcohol or drug abuse patient.[facility] HospitalIn the event this information is protected by the Federal Confidentiality of Alcohol and Drug Abuse Patient Records regulations: The Federal rules restrict any use of the information to criminally investigate or prosecute any alcohol or drug abuse patient.[facility] HospitalIn the event this information is protected by the Federal Confidentiality of Alcohol and Drug Abuse Patient Records regulations: The Federal rules restrict any use of the information to criminally investigate or prosecute any alcohol or drug abuse patient.[facility] HospitalIn the event this information is protected by the Federal Confidentiality of Alcohol and Drug Abuse Patient Records regulations: The Federal rules restrict any use of the information to criminally investigate or prosecute any alcohol or drug abuse patient.[facility] HospitalIn the event this information is protected by the Federal Confidentiality of Alcohol and Drug Abuse Patient Records regulations: The Federal rules restrict any use of the information to criminally investigate or prosecute any alcohol or drug abuse patient.[facility] Reason for Visit (unrecogniz ed section and content) Reason Comments transfer of care Reason Comments Initial OB Visit Reason Comments Appointment Reason Comments Orders Reason Comments Patient Update Reason Comments Information Reason Comments Results Reason Onset Date Comments Care Care 07/13/2023 Reason Comments PRAF Reason Comments US Specialty Diagnoses / Procedures Referred By Contac t Referred To Contact [facility] Diagnoses with care elsewhere, antepartum Marijuana use during Vapes nicotine containing substance abnormality in antepartum , single or unspecified fetus Procedures OBSTETRIC ULTRASOUND WHI US PREG UTERUS AFTER 1ST TRIMEST GESTATION Abhay Bone APRN.CN [address] [place] [address] [facility] [address] [place] [address] Referral ID Status Reason Start Date Expiration Date V isits Requested Visits Authorized [id number] Closed Auto-Generate d Referral 07/02/2023 06/25/2024 1 1 Reason Onset Date Comments Care 08/05/2023 Reason Onset Date Comments Population Health Navigation Outreach 08/11/2023 Peds/OB Reason Onset Date Comments Care 08/12/2023 Reason Comments Ob Delivery Note Reason Comments Blood management Reason Comments Early Reason Comments Establish Care Post Reason Comments Routine Reason Comments Establish Care Med Management Reason Comments bartholin cyst Reason Comments Bartholin cyst Reason Comments Referral Information Gastroenterology Reason Comments Abdominal Pain Physical pain. 1.5ye ars. [place]. Low food intake. Constipation Low water intake. Back Pain Mid to lower. Anxiety Reason Comments Palpitations Home monitoring with Apple watch. Abdominal Pain N/v episodes. Not ab le to keep medications down due to n/v. Medication Problem Lexapro not working - feeling like hurting self with taking. Bentyl not working not able to keep down. Reason Comments No Show No Show #1 Reason Comments Pre-Op Visit Reason Comments Post-Op Visit Reason Comments Appointment Set appt with new pr oviderAug 2024 FOR RECORDS PERTAINING TO PATIENTS WHO ARE [...] BE BASED ON THE PRIMARY CLINICAL RECORDS. [facility]. provides no warranty or guarantee of the accuracy or completeness of information in this document.
[2025-05-08 21:41] VITALS: BP 112/67; PULSE 74
[2025-05-08 21:43] LABS: hCG Titer Quant., Serum 8699 mIU/mL (<9 non-preg)
[2025-05-08 22:13] LABS: Mucous, Urine 0 SEEN /hpf (<or=2+); Squamous Epithelial Cells - UA 0 SEEN /hpf (5-10)
[2025-05-08 22:18] LABS: Color, Urine Yellow (Yellow); Glucose, Dipstick Normal (Normal); Ketone-Dipstick Negative (Negative); Leukocyte Esterase-Dipstick 25 /ul (Negative); Nitrite-Dipstick Negative (Negative); Occult Blood-Urine 10 /ul (Negative); Protein-Dipstick 15 mg/dl (Negative); Specific Gravity, Urine 1.020 (1.002-1.030); Urine Bilirubin Dipstick Negative (Negative)
[2025-05-08 22:43] LABS: Red Blood Cells-Urine 0-5 SEEN /hpf (0-5)
--- NOTE | 2025-05-08 23:01 | ED.VIS.FEGU ---
HPI HPI - Female History of Present Illness Chief Complaint: Vag Bld, Preg Narrative Narrative: Chief complaint and HPI: Vaginal bleeding in first trimester . 20-year-old female who is G2, P1 presents for evaluation of vaginal bleeding in early . Patient states her last menstrual cycle was in March. She states that she took a test on 04/26/2025 after a missed period and found herself to be . She states she follows with Dr. Bone but has yet to see her in the office. She states that she has been having episodic vaginal spotting/bleeding over the past 3 days. She denies any abdominal pain. Denies any fever, chills, shortness of breath, chest pain, dysuria. Review of systems: See HPI Medications: As listed on the chart Allergies: As listed on the chart PFSH: Per chart Vital signs: As listed on the chart. Reviewed. Physical exam: Gen: A&O x3, NAD Head: Normocephalic, atraumatic Eyes: No sclera icterus, conjunctiva clear ENT: Moist mucous membranes Neck: Trachea midline, No JVD CV: RRR, no murmurs, no peripheral edema Resp: Lungs CTA BL, no w/r/c GI: Abd soft, non-distended, non-tender, no r/r/g Pelvic: Normal external genitalia. No lesions, masses, or rashes appreciated. No active vaginal bleeding. Normal vaginal discharge. Cervix closed. No CVA tenderness. Musc: Full ROM, no deformity Skin: Warm, dry Neuro: Alert, oriented, grossly intact, sensation intact Psych: Cooperative, appropriate mood and affect [facility] Medical History Substance abuse Alcohol use Restless legs Stomach discomfort Vapes nicotine containing substance History of pain when walking Tachycardia Anorexia PTSD (post-traumatic stress disorder) Depression Home Medications ?Medication ?Instructions ?Recorded ?Last Taken ?Type acetaminophen 325 mg tablet (Pain 650 mg (2 x 325 mg) PO Q6H PRN 03/09/25 Unknown Rx Relief (acetaminophen)) pain #30 tabs docusate sodium 100 mg capsule 100 mg PO BID #30 caps 03/09/25 Unknown Rx (Colace) ibuprofen 600 mg tablet 600 mg PO Q6H PRN pain #30 tabs 05/22/25 Unknown Rx oxycodone 5 mg tablet 5 mg PO Q6H PRN pain 7 days #5 tabs 03/09/25 Unknown Rx Allergy/AdvReac Type Severity Reaction Status Date / Time sulfamethoxazole (From AdvReac Mild Vomiting Verified 05/08/25 19:44 Bactrim) trimethoprim (From Bactrim) AdvReac Mild Vomiting Verified 05/08/25 19:44 Surgical History Hx of removal of cyst History of appendectomy Social History household members: significant other Smoking Status: Current every day smoker tobacco type: e-cigarettes alcohol intake: former substance use type: former substance user Date of last use: Marijuana EXAM Physical Exam Const Vital Signs: 05/08/25 19:41 05/08/25 21:41 05/08/25 23:03 Temperature 98.6 F 98.0 F Temperature Source Oral Pulse Rate 99 74 69 Respiratory Rate 14 18 Blood Pressure 136/84 H 112/67 108/74 Blood Pressure Mean 101 82 85 Pulse Ox 99 100 Oxygen Delivery Method Room Air MDM MDM MDM Narrative Medical decision making narrative: 20-year-old female who is G2, P1 presents for evaluation of vaginal bleeding in early . Patient states her last menstrual cycle was in March. She states that she took a test on 04/26/2025 after a missed period and found herself to be . She states she follows with Dr. Bone but has yet to see her in the office. She states that she has been having episodic vaginal spotting/bleeding over the past 3 days. She denies any abdominal pain. Physical exam unremarkable with a closed cervix and no vaginal bleeding. Differential diagnosis includes but is not limited to vaginal bleeding in early , subchorionic hemorrhage, miscarriage, ectopic , UTI, anemia. Laboratory workup ordered including transvaginal ultrasound. CBC unremarkable without leukocytosis or anemia. CMP unremarkable. Lactic acid unremarkable. Beta-hCG elevated at 8699. UA negative for UTI. Transvaginal ultrasound shows IUP with age of 5 weeks and 5 days. Viability is not yet determined. Consider follow-up imaging. Given ultrasound findings, Dr. Bone with [facility] was consulted and patient was discussed. Agrees with discharge home. Patient is to call the office tomorrow and they will schedule for a repeat beta-hCG. Patient was updated with the findings and the plan. She confirmed understanding. Return precautions explained. Patient discharged home. Impression: 1. Vaginal bleeding in first trimester Lab Data Labs: Laboratory Results - last 24 hr 05/08/25 05/08/25 20:16 22:04 WBC 9.5 RBC 4.16 L Hgb 12.8 Hct 37.8 MCV 90.9 MCH 30.8 MCHC 33.9 RDW Std Deviation 42.0 RDW Coeff of Anthony 12.7 Plt Count 320 MPV 10.0 Immature Gran % (Auto) 0.300 Neut % (Auto) 63.1 Lymph % (Auto) 27.1 [place] % (Auto) 7.4 Eos % (Auto) 1.4 Baso % (Auto) 0.7 Absolute Neuts (auto) 6.0 Absolute Lymphs (auto) 2.58 Nucleated RBC % 0 Sodium 137 Potassium 3.5 Chloride 104 Carbon Dioxide 22.6 Anion Gap 11 BUN 9 Creatinine 0.58 L Estim Creat Clear Calc 121.80 Est GFR (MDRD) Non-Af 131 BUN/Creatinine Ratio 14.9 Glucose 81 Calcium 9.3 Total Bilirubin 0.21 AST 16 ALT 19 Alkaline Phosphatase 84 Total Protein 7.2 Albumin 4.2 Globulin 3.1 Albumin/Globulin Ratio 1.4 Lipase 32 HCG, Quant 8699 H Urine Color Yellow Urine Clarity Sl. Cloudy Urine pH 6.5 Ur Specific [place] 1.020 Urine Protein 15 H Urine Glucose (UA) Normal Urine Ketones Negative Urine Occult Blood 10 H Urine Nitrite Negative Urine Bilirubin Negative Urine Urobilinogen Normal Ur Leukocyte Esterase 25 H Urine RBC 0-5 SEEN Urine WBC 5-10 SEEN Ur Squamous Epith Cells 0 SEEN Urine Bacteria RARE Urine Mucus 0 SEEN Radiography Diagnostic Testing: Clinical Impression(s) from Imaging Studies Obstetrics Ultrasound 05/08/25 21:19 IMPRESSION: Intrauterine gestation, approximate ultrasound age of 5 weeks and 5 days by mean sac diameter. Viability is not yet determined. Consider follow up imaging. Reading Location: [place] [id number] Discharge Plan Triage Chief Complaint: Vag Bld, Preg ED Provider: Terrance Jenkins Dx/Rx/DC Orders Clinical Impression: Vaginal bleeding affecting early Instructions: Bleeding During Early Prescriptions: No Action docusate sodium [Colace] 100 mg capsule 100 mg PO BID Qty: 30 0RF oxycodone 5 mg tablet 5 mg PO Q6H PRN (Reason: pain) 7 Days Qty: 5 0RF ibuprofen 600 mg tablet 600 mg PO Q6H PRN (Reason: pain) Qty: 30 0RF acetaminophen [Pain Relief (acetaminophen)] 325 mg tablet 650 mg PO Q6H PRN (Reason: pain) Qty: 30 0RF Primary Care Provider: Zach Good Referrals: Merle Bone CNM [Med Staff - Adv Practice Prof] - 3-5 Days Zach Good DO [Primary Care Provider] - 3-5 Days Activity Restrictions/Additional Instructions: Follow-up with your [facility]. You need to call the office in the morning to let them know that you need to have a repeat beta-hCG. Return back to the ED if symptoms change or worsen. Print Language: Mosotho Disposition Disposition: Home, Self Care Discharge Date/Time: 05/08/25 23:05
[2025-05-08 23:03] VITALS: BP 108/74; PULSE 69; RESP 18; TEMP 36.7; O2SAT 100
== END 2025-05-08 23:05 | disposition home or self-care (01) ==
PROVIDERS: Emergency Provider Surgery; PCP Internal Medicine; Visit Provider Surgery
DX: O20.9 Hemorrhage in early pregnancy, unspecified (principal); O99.331 Smoking (tobacco) complicating pregnancy, first trimester; F17.290 Nicotine dependence, other tobacco product, uncomplicated; Z3A.01 Less than 8 weeks gestation of pregnancy
CPT/HCPCS: 76817; 80053; 81001; 83690; 84702; 85025; 99283; A4216

== ENCOUNTER 2025-08-09 10:32 | Emergency (ER) | payer MEDICAID, SELFPAY ==
[2025-08-09 10:33] VITALS: BP 124/72; PULSE 114; RESP 20; TEMP 36.6; O2SAT 100; BMI 20.9
[2025-08-09] MEDS: 0.9% Normal Saline (1000mL) 1,000 ML 999 ML IV (11:15)
[2025-08-09 11:17] LABS: Hematocrit 31.9 % (37-47); Hemoglobin 11.1 g/dL (12.0-15.0); Immature Granulocytes Count 0.030 X10^3/uL (0.0-0.0); Mean Corp Hgb Conc 34.8 g/dL (32-36); Mean Corpuscular Volume 90.4 fL (81-99); Mean Platelet Vol. 9.9 fl (6.2-12.0); NRBC Flagged by Analyzer 0 % (0-5); Platelet Count 297 K/mm3 (150-450); RBC Distribution Width CV 13.5 % (11.6-14.6); RBC Distribution Width SD 44.4 fl (35.1-43.9); Red Blood Count 3.53 M/mm3 (4.2-5.4); White Blood Count 11.2 K/mm3 (4.4-11.0)
[2025-08-09 11:49] LABS: AST(SGOT) 12 U/L (<=31); Alanine Aminotransfer ALT/SGPT 6 U/L (<=34); Albumin, Serum 3.5 g/dL (3.5-5.0); Alkaline Phosphatase 71 U/L (35-104); Anion Gap 10 (5-15); BUN 4 mg/dL (4-19); BUN/Creat Ratio 10.6 RATIO (10-20); Calcium,Total 8.3 mg/dL (7.6-11.0); Carbon Dioxide 22.1 mmol/L (21.0-32.0); Chloride 103 mmol/L (98-108); Estimated Creatinine Clearance 192.10 ml/min (50-250); Globulin 2.9 g/dL (2.2-4.2); Glucose 82 mg/dL (70-99); Lipase 24 U/L (13-75); Potassium 3.4 mmol/L (3.3-5.1)
[2025-08-09 12:40] VITALS: BP 106/69; PULSE 78; RESP 16; O2SAT 98
[2025-08-09 12:45] LABS: Mucous, Urine 0 SEEN /hpf (<or=2+); Red Blood Cells-Urine 0 SEEN /hpf (0-5)
[2025-08-09 12:51] LABS: Color, Urine Yellow (Yellow); Glucose, Dipstick Normal (Normal); Ketone-Dipstick 15 mg/dl (Negative); Leukocyte Esterase-Dipstick 100 /ul (Negative); Nitrite-Dipstick Negative (Negative); Occult Blood-Urine Negative /ul (Negative); Protein-Dipstick 15 mg/dl (Negative); Specific Gravity, Urine 1.010 (1.002-1.030); Urine Bilirubin Dipstick Negative (Negative)
[2025-08-09 13:04] LABS: Squamous Epithelial Cells - UA 0-5 SEEN /hpf (5-10)
[2025-08-09 14:00] VITALS: BP 110/71; PULSE 78; RESP 16; TEMP 36.8; O2SAT 98
== END 2025-08-09 14:05 | disposition home or self-care (01) ==
PROVIDERS: Emergency Provider Student in an Organized Health Care Education/Training Program; PCP Internal Medicine; Visit Provider Student in an Organized Health Care Education/Training Program
DX: O21.9 Vomiting of pregnancy, unspecified (principal); O99.012 Anemia complicating pregnancy, second trimester; R82.71 Bacteriuria; D64.9 Anemia, unspecified; Z3A.19 19 weeks gestation of pregnancy; F17.290 Nicotine dependence, other tobacco product, uncomplicated; O99.112 Other diseases of the blood and blood-forming organs and certain disorders involving the immune mechanism complicating pregnancy, second trimester; D72.829 Elevated white blood cell count, unspecified; O99.891 Other specified diseases and conditions complicating pregnancy; O99.332 Smoking (tobacco) complicating pregnancy, second trimester
CPT/HCPCS: 76815; 80053; 81001; 83690; 85025; 96361; 96374; 99283; A4216; J2405